=== PATIENT | male | born 1940 | race African-American/Black ===

== ENCOUNTER 2017-06-13 12:30 | Inpatient (IN) | payer MEDICARE, MEDICAID ==
[~2017-06-13] VITALS: Ht 165.1 cm; Wt 99.3 kg
[2017-06-13 12:24] VITALS: BP 126/72
[~2017-06-13 12:30] MED LIST: ASPIR 8181 MG ORAL; BENAZEPRIL HCL40 MG ORAL; CARDIZEM90 MG ORAL; HUMULIN 70100 UNIT/2 SUBQ; LANOXIN250 MCG ORAL; MELOXICAM7.5 MG PO; METFORMIN HCL850 M1 ORAL; NIFEDIPINE ER90 M3 ORAL; NIFEDIPINE20 MG ORAL; PROMETHAZINE-D118 ML ORAL; PROTONIX40 MG ORAL; SIMVASTATIN40 MG ORAL
[2017-06-13 13:12] LABS: MEAN CORPUSCULAR HEMOGLOBIN 17.5 PG (27.0-31.0); MEAN CORPUSCULAR HGB CONC 28.1 G/DL (32.0-36.0); MEAN CORPUSCULAR VOLUME 62 FL (80-99); MEAN PLATELET VOLUME 6.1 FL (6.5-10.1); PLATELET COUNT 236 K/UL (150-450); RED BLOOD COUNT 4.32 M/UL (4.70-6.10); RED CELL DISTRIBUTION WIDTH 16.9 % (11.6-14.8); WHITE BLOOD COUNT 4.2 K/UL (4.8-10.8)
--- NOTE | 2017-06-13 13:16 | Emergency Room Report ---
History of Present Illness General Chief Complaint: Flu Like Symptoms Source: EMS Present Illness HPI 76-year-old male with history of diabetes and hypertension, presenting with 4-5 days of generalized weakness and lightheadedness. Patient states that he gets lightheaded especially when he walks, but can also experienced symptoms was just lying down. Patient denies any room spinning. Patient denies any headache neck pain chest pain shortness of breath nausea vomiting or diarrhea. Patient denies any coffee-ground emesis or black or bloody stools. Allergies: Coded Allergies: No Known Allergies (Unverified , 06/20/14) Patient History Past Medical History: see triage record Past Surgical History: none Pertinent Family History: none Reviewed Nursing Documentation: PMH: Agreed, PSxH: Agreed Nursing Documentation-PMH Hx Cardiac Problems: Yes Hx Hypertension: Yes Hx Diabetes: Yes Hx Cancer: No Hx Gastrointestinal Problems: Yes Hx Neurological Problems: Yes Hx Cerebrovascular Accident: Yes Review of Systems All Other Systems: negative except mentioned in HPI Physical Exam Vital Signs Date Time Temp Pulse Resp B/P (MAP) Pulse Ox O2 Delivery O2 Flow Rate FiO2 06/13/17 12:15 98.1 116 18 126/72 95 Room Air Sp02 EP Interpretation: reviewed, normal General Appearance: normal inspection, well appearing, no apparent distress, alert, GCS 15, non-toxic Head: normocephalic, atraumatic Eyes: bilateral eye normal inspection, bilateral eye PERRL, bilateral eye EOMI ENT: normal ENT inspection, normal pharynx, normal voice, moist mucus membranes Neck: normal inspection, full range of motion, supple Respiratory: normal inspection, lungs clear, normal breath sounds, no respiratory distress, no retraction, no wheezing, speaking full sentences, chest symmetrical Cardiovascular #1: normal inspection, no edema, normal capillary refill, tachycardia Cardiovascular #2: 2+ radial (R), 2+ radial (L) Gastrointestinal: normal inspection, non tender, soft, non-distended, no guarding Genitourinary: no CVA tenderness Musculoskeletal: normal inspection, back normal, normal range of motion, non- tender Neurologic: normal inspection, alert, oriented x3, responsive, motor strength/ tone normal, sensory intact, normal gait, speech normal Psychiatric: normal inspection, judgement/insight normal, memory normal Skin: normal inspection, normal color, no rash, warm/dry, well hydrated, normal turgor Medical Decision Making Diagnostic Impression: Primary Impression: Generalized weakness Additional Impression: Anemia ER Course 76 yo male with generalized weakness and lightheadedness DDX: Dehydration, electrolyte imbalance, infectious, UTI, pneumonia, anemia, viral URI, ACS Plan: Obtain labs, ua, EKG, CXR ER course: Patient has been monitored during ED stay, HD stable Anemia found on CBC, unknown baseline. Disposition: Patient is to be admitted to [facility] D/W hospitalist [ ] Please note that this Emergency Department Report was dictated using [email or web address] software, occasionally this can lead to erroneous entry secondary to interpretation by the dictation equipment. Laboratory Tests Test 06/13/17 12:49 White Blood Count 4.2 K/UL (4.8-10.8) L Red Blood Count 4.32 M/UL (4.70-6.10) L Hemoglobin 7.5 G/DL (14.2-18.0) L Hematocrit 26.8 % (42.0-52.0) L Mean Corpuscular Volume 62 FL (80-99) L Mean Corpuscular Hemoglobin 17.5 PG (27.0-31.0) L Mean Corpuscular Hemoglobin Concent 28.1 G/DL (32.0-36.0) L Red Cell Distribution Width 16.9 % (11.6-14.8) H Platelet Count 236 K/UL (150-450) Mean Platelet Volume 6.1 FL (6.5-10.1) L Neutrophils (%) (Auto) % (45.0-75.0) Lymphocytes (%) (Auto) % (20.0-45.0) Monocytes (%) (Auto) % (1.0-10.0) Eosinophils (%) (Auto) % (0.0-3.0) Basophils (%) (Auto) % (0.0-2.0) Differential Total Cells Counted 100 Neutrophils % (Manual) 70 % (45-75) Lymphocytes % (Manual) 16 % (20-45) L Monocytes % (Manual) 12 % (1-10) H Eosinophils % (Manual) 2 % (0-3) Basophils % (Manual) 0 % (0-2) Band Neutrophils 0 % (0-8) Platelet Estimate Adequate Platelet Morphology Giant Platelets Occasional Hypochromasia 2+ Anisocytosis 1+ Microcytosis 2+ Tear Drop Cells Rare Ovalocytes Rare Sodium Level 133 mEQ/L (135-145) L Potassium Level 3.5 mEQ/L (3.4-4.9) Chloride Level 93 mEQ/L (98-107) L Carbon Dioxide Level 25 mEQ/L (20-30) Anion Gap 15 (5-15) Blood Urea Nitrogen 14 mg/dL (7-23) Creatinine 1.3 mg/dL (0.7-1.2) H Estimate Glomerular Filtration Rate mL/min (>60) Glucose Level 171 mg/dL (74-106) H Calcium Level 9.1 mg/dL (8.6-10.2) Total Bilirubin 0.7 mg/dL (0.0-1.2) Aspartate Amino Transferase (AST) 38 U/L (5-40) Alanine Aminotransferase (ALT) 28 U/L (3-41) Alkaline Phosphatase 45 U/L (40-129) Troponin I < 0.30 ng/mL (<=0.30) Total Protein 7.3 g/dL (6.6-8.7) Albumin 3.7 g/dL (3.5-5.2) Globulin 3.6 g/dL Albumin/Globulin Ratio 1.0 (1.0-2.7) EKG Diagnostic Results Rate: normal Rhythm: NSR ST Segments: no acute changes ASA given to the pt in ED: No Rhythm Strip Diag. Results EP Interpretation: yes Rate: 80 Rhythm: NSR, no PVC's, no ectopy Chest X-Ray Diagnostic Results Chest X-Ray Diagnostic Results : Chest X-Ray Ordered: Yes # of Views/Limited/Complete: 1 View Indication: Other Interpretation: no consolidation, no effusion, no pneumothorax, no acute cardiopulmonary disease Impression: Other Electronically Signed by: Electronically signed by Diane Olmos MD Last Vital Signs Date Time Temp Pulse Resp B/P (MAP) Pulse Ox O2 Delivery O2 Flow Rate FiO2 06/13/17 12:24 98.1 18 126/72 95 Room Air 06/13/17 12:24 116 Disposition: ADMITTED INPATIENT Condition: Serious Referrals: NOT CHOSEN IPA/,REFERRING (PCP) Diane Olmos M.D. Jun 13, 2017 13:16
[2017-06-13 13:26] LABS: TROPONIN I < 0.30 ng/mL (<=0.30)
[2017-06-13 13:30] LABS: ALANINE AMINOTRANSFERASE 28 U/L (3-41); ANION GAP 15 (5-15); ASPARTATE AMINO TRANSFERASE 38 U/L (5-40); CALCIUM 9.1 mg/dL (8.6-10.2); CARBON DIOXIDE 25 mEQ/L (20-30); CHLORIDE 93 mEQ/L (98-107); CREATININE 1.3 mg/dL (0.7-1.2); HEMOLYSIS 44; POTASSIUM 3.5 mEQ/L (3.4-4.9); SODIUM 133 mEQ/L (135-145); TOTAL PROTEIN 7.3 g/dL (6.6-8.7)
[2017-06-13 13:40] LABS: ANISOCYTOSIS 1+; BAND NEUTROPHILS % (MANUAL) 0 % (0-8); BASOPHILS % (MANUAL) 0 % (0-2); EOSINOPHILS % (MANUAL) 2 % (0-3); HYPOCHROMASIA 2+; LYMPHOCYTES % (MANUAL) 16 % (20-45); MICROCYTES 2+; NEUTROPHILS % (MANUAL) 70 % (45-75); PLATELET ESTIMATE ADEQUATE; TOTAL CELLS COUNTED 100
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
[2017-06-13 13:43] LABS: OVALOCYTES RARE
[2017-06-13 13:44] LABS: TEAR DROP CELLS RARE
[2017-06-13] MEDS ORDERED: DOXAZOSIN MESYLA2 MG ORAL (15:01)
[2017-06-13 15:06] VITALS: BP 124/72
[2017-06-13] MEDS ORDERED: LOSARTAN POTAS100 MG ORAL (15:06)
[2017-06-13] MEDS ORDERED: NORVASC10 MG ORAL (15:06)
[2017-06-13] MEDS ORDERED: HYDROCHLOROTHIA25 MG ORAL (15:06)
[2017-06-13] MEDS ORDERED: FUROSEMIDE40 MG/5 ML ORAL (15:06)
[2017-06-13] MEDS ORDERED: LORazepam Inj 2mg/ml 1ml IV PRN (15:30)
[2017-06-13] MEDS ORDERED: Zolpidem 5mg tab ORAL PRN (15:30)
[2017-06-13] MEDS ORDERED: Morphine Sulfate 2mg/ml Inj IVP PRN (15:30)
[2017-06-13] MEDS ORDERED: Mylanta II UD 30ml ORAL PRN (15:30)
[2017-06-13] MEDS ORDERED: Miralax 17gm pkt ORAL PRN (15:30)
[2017-06-13 16:32] VITALS: BP 147/65
[2017-06-13 16:34] LABS: APPEARANCE,URINE CLEAR; KETONES,URINE NEGATIVE (NEGATIVE); LEUKOCYTE ESTERASE ,URINE 2+ (NEGATIVE); NITRITE,URINE NEGATIVE (NEGATIVE); PH,URINE 5 (4.5-8.0); PROTEIN,URINE NEGATIVE (NEGATIVE); UROBILINOGEN,URINE NORMAL MG/DL (0.0-1.0)
[2017-06-13 16:47] LABS: RBC,URINE 0-2 /HPF (0 - 0)
[2017-06-13 16:48] LABS: BACTERIA,URINE OCCASIONAL /HPF; SQUAMOUS EPITHELIAL CELL,UR FEW /LPF (NONE/OCC)
[2017-06-13 18:02] LABS: URIC ACID 6.4 mg/dL (3.0-7.5)
--- NOTE | 2017-06-13 20:04 | Infectious Diseases Prog Note ---
Assessment/Plan Problems: (1) UTI (urinary tract infection) Assessment & Plan: will send urine for culture and start ceftriaxon empirically (2) Generalized weakness Assessment & Plan: could be due to UTI , rule out other etiologies, needs screening for hypothyroidism, (3) Hypertension Assessment & Plan: continue meds, monitor blood pressure (4) Lightheadedness Assessment & Plan: rule out CVA, recommend neurology eval and further work up Subjective Allergies: Coded Allergies: No Known Allergies (Unverified , 06/20/14) Objective Vital Signs Last 24 Hour Vital Signs Date Time Temp Pulse Resp B/P (MAP) Pulse Ox O2 Delivery O2 Flow Rate FiO2 06/13/17 16:32 97.0 99 20 147/65 92 Room Air 06/13/17 15:20 98.1 88 18 124/72 96 Room Air 06/13/17 15:06 98.1 88 18 124/72 96 Room Air 06/13/17 12:24 98.1 18 126/72 95 Room Air 06/13/17 12:24 116 18 Room Air 06/13/17 12:15 98.1 116 18 126/72 95 Room Air Height (Feet): 5 Height (Inches): 7.00 Weight (Pounds): 180 Laboratory Tests Test 06/13/17 12:49 06/13/17 15:10 06/13/17 16:55 White Blood Count 4.2 K/UL (4.8-10.8) L Red Blood Count 4.32 M/UL (4.70-6.10) L Hemoglobin 7.5 G/DL (14.2-18.0) L Hematocrit 26.8 % (42.0-52.0) L Mean Corpuscular Volume 62 FL (80-99) L Mean Corpuscular Hemoglobin 17.5 PG (27.0-31.0) L Mean Corpuscular Hemoglobin Concent 28.1 G/DL (32.0-36.0) L Red Cell Distribution Width 16.9 % (11.6-14.8) H Platelet Count 236 K/UL (150-450) Mean Platelet Volume 6.1 FL (6.5-10.1) L Neutrophils (%) (Auto) % (45.0-75.0) Lymphocytes (%) (Auto) % (20.0-45.0) Monocytes (%) (Auto) % (1.0-10.0) Eosinophils (%) (Auto) % (0.0-3.0) Basophils (%) (Auto) % (0.0-2.0) Differential Total Cells Counted 100 Neutrophils % (Manual) 70 % (45-75) Lymphocytes % (Manual) 16 % (20-45) L Monocytes % (Manual) 12 % (1-10) H Eosinophils % (Manual) 2 % (0-3) Basophils % (Manual) 0 % (0-2) Band Neutrophils 0 % (0-8) Platelet Estimate Adequate Platelet Morphology Giant Platelets Occasional Hypochromasia 2+ Anisocytosis 1+ Microcytosis 2+ Tear Drop Cells Rare Ovalocytes Rare Erythrocyte Sedimentation Rate 21 MM/HR (0-20) H Sodium Level 133 mEQ/L (135-145) L Potassium Level 3.5 mEQ/L (3.4-4.9) Chloride Level 93 mEQ/L (98-107) L Carbon Dioxide Level 25 mEQ/L (20-30) Anion Gap 15 (5-15) Blood Urea Nitrogen 14 mg/dL (7-23) Creatinine 1.3 mg/dL (0.7-1.2) H Estimat Glomerular Filtration Rate mL/min (>60) Glucose Level 171 mg/dL (74-106) H Calcium Level 9.1 mg/dL (8.6-10.2) Total Bilirubin 0.7 mg/dL (0.0-1.2) Aspartate Amino Transf (AST/SGOT) 38 U/L (5-40) Alanine Aminotransferase (ALT/SGPT) 28 U/L (3-41) Alkaline Phosphatase 45 U/L (40-129) Troponin I < 0.30 ng/mL (<=0.30) Total Protein 7.3 g/dL (6.6-8.7) Albumin 3.7 g/dL (3.5-5.2) Globulin 3.6 g/dL Albumin/Globulin Ratio 1.0 (1.0-2.7) Urine Color Yellow Urine Appearance Clear Urine pH 5 (4.5-8.0) Urine Specific [place] 1.010 (1.005-1.035) Urine Protein Negative (NEGATIVE) Urine Glucose (UA) Negative (NEGATIVE) Urine Ketones Negative (NEGATIVE) Urine Occult Blood Negative (NEGATIVE) Urine Nitrite Negative (NEGATIVE) Urine Bilirubin Negative (NEGATIVE) Urine Urobilinogen Normal MG/DL (0.0-1.0) Urine Leukocyte Esterase 2+ (NEGATIVE) H Urine RBC 0-2 /HPF (0 - 0) H Urine WBC 5-10 /HPF (0 - 0) H Urine Squamous Epithelial Cells Few /LPF (NONE/OCC) Urine Bacteria Occasional /HPF (NONE) Urine Eosinophils None seen Urine Random Sodium 40 mmol/L Urine Potassium Timed 28 mmol/L Prothrombin Time 10.0 SEC (9.30-11.50) Prothromb Time International Ratio 1.0 (0.9-1.1) Activated Partial Thromboplast Time 19 SEC (23-33) L Uric Acid 6.4 mg/dL (3.0-7.5) Lactate Dehydrogenase 153 U/L (135-230) Total Creatine Kinase 134 U/L (38-174) Carcinoembryonic Antigen 5.0 ng/mL H Current Medications Medications (Trade) Dose Ordered Sig/Eda Route PRN Reason Start Time Stop Time Status Last Admin Dose Admin Acetaminophen (Tylenol) 650 mg Q4H PRN ORAL fever 06/13/17 15:30 07/13/17 15:29 Al Hydroxide/Mg Hydroxide (Mylanta II) 30 ml Q6H PRN ORAL dyspepsia 06/13/17 15:30 07/13/17 15:29 Dextrose (Dextrose 50%) STAT PRN IV Hypoglycemia 06/13/17 15:30 07/13/17 15:29 Lorazepam (Ativan 2mg/ml 1ml) 0.5 mg Q4H PRN IV For Anxiety 06/13/17 15:30 06/20/17 15:29 Morphine Sulfate (Morphine Sulfate) 1 mg EVERY 4 HOURS PRN IVP For Pain 06/13/17 15:30 06/20/17 15:29 Ondansetron HCl (Zofran) 4 mg Q6H PRN IVP Nausea & Vomiting 06/13/17 15:30 07/13/17 15:29 Polyethylene Glycol (Miralax) 17 gm HSPRN PRN ORAL Constipation 06/13/17 15:30 07/13/17 15:29 Zolpidem Tartrate (Ambien) 5 mg HSPRN PRN ORAL Insomnia 06/13/17 15:30 06/20/17 15:29 Boris Mata M.D. Jun 13, 2017 20:04
[2017-06-13] MEDS: cefTRIAXone 1 GM in D5W 55 ML IVPB SCH (22:21)
[2017-06-13] MEDS: NovoLOG Insulin Flexpen SUBQ SCH (22:23)
--- NOTE | 2017-06-13 23:45 | History and Physical Report ---
DATE OF ADMISSION: 06/13/2017 TIME SEEN: 2 p.m. CONSULTANTS: 1. Darin Watts M.D. 2. Balta Luna M.D. 3. Dr. Fountain. 4. Stephen Munguia M.D. CHIEF COMPLAINT: Weakness, flu-like symptoms, and severe anemia. BRIEF HISTORY: This is a 76-year-old male, who lives at home, presents with two days of flu-like symptoms, and slightly weak. He does have history of recurrent anemia. He came in to [place] and diagnosed with a anemia 7.5, being admitted to medical floor for further treatment. Currently, calm, in the ER [place], no complaints. PAST MEDICAL HISTORY: Diabetes, hypertension, and anemia. PAST SURGICAL HISTORY: None. MEDICATIONS: We will obtain list shortly. ALLERGY: Denied. SOCIAL HISTORY: No smoking, no alcohol, and no intravenous drug abuse. FAMILY HISTORY: Noncontributory. REVIEW OF SYSTEMS: No chest pain. No shortness of breath. Slight nausea. No vomiting or diarrhea. PHYSICAL EXAMINATION: GENERAL: Calm in bed, oriented x3, and in no acute distress. VITAL SIGNS: Temperature is 98, pulse 116, respirations 18, and blood pressure 126/72. CARDIOVASCULAR: No murmur. LUNGS: Distant and clear. ABDOMEN: Positive bowel sounds. Nontender and nondistended. EXTREMITIES: No cyanosis, clubbing, or edema. NEUROLOGICAL: The patient is moving all extremities, but slightly weak. LABORATORY DATA: Labs, at this time, show white count 4.2, hemoglobin and hematocrit are 7.5 and 26.8, and platelets 236,000. BMP shows sodium 133, chloride 93, creatinine 1.3, and glucose 171. ASSESSMENT: 1. Weakness. 2. Anemia. 3. Flu-like symptoms. 4. Diabetes. 5. Hypertension. 6. Renal insufficiency. PLAN: 1. Continue premedications. 2. Transfuse. 3. OT, PT, and dietary evaluation. 4. CBC and BMP in the morning. 5. Dr. Watts, Dr. Luna, Dr. Fountain, Dr. Munguia, and Dr. Bradford to consult. We will continue to follow this patient medically. Bry Santiago D.O. DR: MILAGRO JOB#: [id number] CC:
[2017-06-14 04:50] VITALS: BP 139/79
[2017-06-14] MEDS: NovoLOG Insulin Flexpen SUBQ SCH ×4 (06:21→21:29)
--- NOTE | 2017-06-14 07:28 | Consultation ---
History of Present Illness General Date patient seen: Jun 14, 2017 Time patient seen: 07:15 Chief Complaint: Flu Like Symptoms Referring physician: dr Santiago Reason for Consultation: inpatient management Present Illness HPI 76y/old male with PMH of diabetes, hypertension, presented with generalized weakness and lightheadedness for 4-5 days Reported being lightheaded with walking, but symptoms were still present when he was lying down. No sensation of room spinning. Reported fall 3 days ago and pain in left elbow since that time. Denied LOS, blackout, Denied headache, neck pain chest pain , shortness of breath, nausea vomiting , diarrhea. W/up in ED revealed tachy-116, BP 126/72 HH-7.5/26.8 no leukocytosis MCV -62 Na-133 K-3.5 Cl-93 BUN/creat -14/1.3 troponin negative CXR negative ECG with NSR, no acute changes patient was admitted for blood transfusion and further workup Allergies: Coded Allergies: No Known Allergies (Unverified , 06/20/14) Medication History Scheduled Amlodipine Besylate (Norvasc), 10 MG ORAL DAILY, (Reported) Aspirin* (Aspir 81*), 81 MG ORAL DAILY, (Reported) Benazepril Hcl* (Benazepril Hcl*), 40 MG ORAL DAILY, (Reported) Digoxin* (Lanoxin*), 0.25 MG ORAL DAILY Diltiazem HCl (Diltiazem HCl), 90 MG ORAL EVERY 6 HOURS Doxazosin Mesylate (Doxazosin Mesylate), 4 MG ORAL DAILY, (Reported) Furosemide (Furosemide), 20 MG ORAL DAILY, (Reported) Hum Insulin Nph/Reg Insulin Hm (Humulin 70-30 Vial), 15 SUBQ BID, (Reported) Hydrochlorothiazide* (Hydrochlorothiazide*), 25 MG ORAL DAILY, (Reported) Losartan Potassium (Losartan Potassium), 100 MG ORAL DAILY, (Reported) Meloxicam* (Meloxicam*), 7.5 MG PO BID, (Reported) Metformin Hcl* (Metformin Hcl*), 850 MG ORAL BID, (Reported) Pantoprazole* (Protonix*), 40 MG ORAL DAILY, (Reported) Simvastatin (Zocor), 40 MG ORAL BEDTIME, (Reported) Scheduled PRN D-Methorphan Hb/Prometh Hcl* (Promethazine-Dm Syrup*), 5 ML ORAL Q6H PRN for For Cough, (Reported) Patient History Healthcare decision maker Resuscitation status Advanced Directive on File No Review of Systems Constitutional: Reports: weakness Eye: Reports: no symptoms ENT: Reports: no symptoms Respiratory: Reports: no symptoms Cardiovascular: Reports: no symptoms Gastrointestinal: Reports: no symptoms Genitourinary: Reports: no symptoms Musculoskeletal: Reports: other - left elbow pain since fall Skin: Reports: no symptoms Psychiatric: Reports: no symptoms Neurological: Reports: see HPI, dizziness Endocrine: Reports: no symptoms Hematologic/Lymphatic: Reports: see HPI, anemia Physical Exam General Appearance: no apparent distress, alert - A/A/O x 4 male in NAD Lines, tubes and drains: peripheral HEENT: normocephalic, atraumatic, anicteric, mucous membranes moist Neck: non-tender, supple Respiratory/Chest: chest wall non-tender, lungs clear, no respiratory distress , no accessory muscle use Cardiovascular/Chest: normal peripheral pulses, normal rate, regular rhythm Abdomen: normal bowel sounds, non tender, soft Extremities: normal range of motion, non-tender, no calf tenderness, other - L elbow with mild edema, no TTP Skin Exam: warm/dry Neurologic: no motor/sensory deficits, alert, oriented x 3, responsive Musculoskeletal: normal muscle bulk Last 24 Hour Vital Signs Date Time Temp Pulse Resp B/P (MAP) Pulse Ox O2 Delivery O2 Flow Rate FiO2 06/14/17 04:50 96.8 98 20 139/79 98 Room Air 06/13/17 16:32 97.0 99 20 147/65 92 Room Air 06/13/17 15:20 98.1 88 18 124/72 96 Room Air 06/13/17 15:06 98.1 88 18 124/72 96 Room Air 06/13/17 12:24 98.1 18 126/72 95 Room Air 06/13/17 12:24 116 18 Room Air 06/13/17 12:15 98.1 116 18 126/72 95 Room Air Laboratory Tests Test 06/13/17 12:49 06/13/17 15:10 06/13/17 16:55 06/14/17 06:50 White Blood Count 4.2 K/UL (4.8-10.8) L Pending Red Blood Count 4.32 M/UL (4.70-6.10) L Pending Hemoglobin 7.5 G/DL (14.2-18.0) L Pending Hematocrit 26.8 % (42.0-52.0) L Pending Mean Corpuscular Volume 62 FL (80-99) L Pending Mean Corpuscular Hemoglobin 17.5 PG (27.0-31.0) L Pending Mean Corpuscular Hemoglobin Concent 28.1 G/DL (32.0-36.0) L Pending Red Cell Distribution Width 16.9 % (11.6-14.8) H Pending Platelet Count 236 K/UL (150-450) Pending Mean Platelet Volume 6.1 FL (6.5-10.1) L Pending Neutrophils (%) (Auto) % (45.0-75.0) Pending Lymphocytes (%) (Auto) % (20.0-45.0) Pending Monocytes (%) (Auto) % (1.0-10.0) Pending Eosinophils (%) (Auto) % (0.0-3.0) Pending Basophils (%) (Auto) % (0.0-2.0) Pending Differential Total Cells Counted 100 Neutrophils % (Manual) 70 % (45-75) Lymphocytes % (Manual) 16 % (20-45) L Monocytes % (Manual) 12 % (1-10) H Eosinophils % (Manual) 2 % (0-3) Basophils % (Manual) 0 % (0-2) Band Neutrophils 0 % (0-8) Platelet Estimate Adequate Platelet Morphology Giant Platelets Occasional Hypochromasia 2+ Anisocytosis 1+ Microcytosis 2+ Tear Drop Cells Rare Ovalocytes Rare Erythrocyte Sedimentation Rate 21 MM/HR (0-20) H Sodium Level 133 mEQ/L (135-145) L Pending Potassium Level 3.5 mEQ/L (3.4-4.9) Pending Chloride Level 93 mEQ/L (98-107) L Pending Carbon Dioxide Level 25 mEQ/L (20-30) Pending Anion Gap 15 (5-15) Blood Urea Nitrogen 14 mg/dL (7-23) Pending Creatinine 1.3 mg/dL (0.7-1.2) H Pending Estimat Glomerular Filtration Rate mL/min (>60) Pending Glucose Level 171 mg/dL (74-106) H Pending Calcium Level 9.1 mg/dL (8.6-10.2) Pending Total Bilirubin 0.7 mg/dL (0.0-1.2) Pending Aspartate Amino Transf (AST/SGOT) 38 U/L (5-40) Pending Alanine Aminotransferase (ALT/SGPT) 28 U/L (3-41) Pending Alkaline Phosphatase 45 U/L (40-129) Pending Troponin I < 0.30 ng/mL (<=0.30) Total Protein 7.3 g/dL (6.6-8.7) Pending Albumin 3.7 g/dL (3.5-5.2) Pending Globulin 3.6 g/dL Pending Albumin/Globulin Ratio 1.0 (1.0-2.7) Urine Color Yellow Urine Appearance Clear Urine pH 5 (4.5-8.0) Urine Specific [place] 1.010 (1.005-1.035) Urine Protein Negative (NEGATIVE) Urine Glucose (UA) Negative (NEGATIVE) Urine Ketones Negative (NEGATIVE) Urine Occult Blood Negative (NEGATIVE) Urine Nitrite Negative (NEGATIVE) Urine Bilirubin Negative (NEGATIVE) Urine Urobilinogen Normal MG/DL (0.0-1.0) Urine Leukocyte Esterase 2+ (NEGATIVE) H Urine RBC 0-2 /HPF (0 - 0) H Urine WBC 5-10 /HPF (0 - 0) H Urine Squamous Epithelial Cells Few /LPF (NONE/OCC) Urine Bacteria Occasional /HPF (NONE) Urine Eosinophils None seen Urine Random Sodium 40 mmol/L Urine Potassium Timed 28 mmol/L Prothrombin Time 10.0 SEC (9.30-11.50) Pending Prothromb Time International Ratio 1.0 (0.9-1.1) Pending Activated Partial Thromboplast Time 19 SEC (23-33) L Pending Uric Acid 6.4 mg/dL (3.0-7.5) Lactate Dehydrogenase 153 U/L (135-230) Total Creatine Kinase 134 U/L (38-174) Carcinoembryonic Antigen 5.0 ng/mL H Pending Reticulocyte Count Pending Hemoglobin A1c Pending Iron Level Pending Unsaturated Iron Binding Pending Ferritin Pending Vitamin B12 Level Pending Folate Pending Thyroid Stimulating Hormone (TSH) Pending Free Thyroxine Pending Height (Feet): 5 Height (Inches): 7.00 Weight (Pounds): 180 Medications Current Medications Medications (Trade) Dose Ordered Sig/Eda Route PRN Reason Start Time Stop Time Status Last Admin Dose Admin Acetaminophen (Tylenol) 650 mg Q4H PRN ORAL fever 06/13/17 15:30 07/13/17 15:29 Al Hydroxide/Mg Hydroxide (Mylanta II) 30 ml Q6H PRN ORAL dyspepsia 06/13/17 15:30 07/13/17 15:29 Ceftriaxone Sodium 1 gm/ Dextrose 55 ml @ 110 mls/hr Q24H IVPB 06/13/17 21:00 06/20/17 20:59 06/13/17 22:21 Dextrose (Dextrose 50%) STAT PRN IV Hypoglycemia 06/13/17 15:30 07/13/17 15:29 Dextrose (Dextrose 50%) STAT PRN IV Hypoglycemia 06/13/17 20:15 07/13/17 20:14 Insulin Aspart (NovoLOG) BEFORE MEALS AND HS SUBQ 06/13/17 21:00 07/13/17 20:59 06/14/17 06:21 Lorazepam (Ativan 2mg/ml 1ml) 0.5 mg Q4H PRN IV For Anxiety 06/13/17 15:30 06/20/17 15:29 Morphine Sulfate (Morphine Sulfate) 1 mg EVERY 4 HOURS PRN IVP For Pain 06/13/17 15:30 06/20/17 15:29 Ondansetron HCl (Zofran) 4 mg Q6H PRN IVP Nausea & Vomiting 06/13/17 15:30 07/13/17 15:29 Polyethylene Glycol (Miralax) 17 gm HSPRN PRN ORAL Constipation 06/13/17 15:30 07/13/17 15:29 Zolpidem Tartrate (Ambien) 5 mg HSPRN PRN ORAL Insomnia 06/13/17 15:30 06/20/17 15:29 Assessment/Plan Assessment/Plan ASSESSMENT acute microcytic anemia requiring blood transfusion iron deficiency anemia elevated CEA r/o GI bleeding , r/o malignancy vertigo ( due to anemia) s/p mechanical fall left elbow pain, r/o fracture HTN DM pyuria, possible UTI PLAN OF CARE MS floor s/p blood transfusion anemia workup c/w anemia of iron deficiency check stool OB, elevated CEA Venous Duplex BLE GI eval- per PMD fall precautions X ray L elbow to r/o fracture pain management PT/OT BS management with SS of insulin BP management , currently not on any anti HTN, monitor and optimize treatment as needed Bowel regimen UA + pyuria, no bacteria, cx pending, ID follows, started on empiric abx, doubt acute UTI case discussed and evaluated by supervising physician Wilfredo Nicole),Gloria REGAN Jun 14, 2017 07:28
[2017-06-14 07:43] LABS: INR 1.1 (0.9-1.1)
[2017-06-14 07:54] LABS: BASOPHILS % (AUTO) 1.6 % (0.0-2.0); EOSINOPHILS % (AUTO) 8.1 % (0.0-3.0); LYMPHOCYTES % (AUTO) 16.5 % (20.0-45.0); MEAN CORPUSCULAR HEMOGLOBIN 19.3 PG (27.0-31.0); MEAN CORPUSCULAR HGB CONC 29.9 G/DL (32.0-36.0); MEAN CORPUSCULAR VOLUME 65 FL (80-99); MEAN PLATELET VOLUME 8.7 FL (6.5-10.1); MONOCYTES % (AUTO) 15.1 % (1.0-10.0); NEUTROPHILS % (AUTO) 58.6 % (45.0-75.0); PLATELET COUNT 252 K/UL (150-450); RED BLOOD COUNT 4.67 M/UL (4.70-6.10); RED CELL DISTRIBUTION WIDTH 19.4 % (11.6-14.8); WHITE BLOOD COUNT 5.3 K/UL (4.8-10.8)
[2017-06-14 08:00] VITALS: BP 142/84
[2017-06-14 08:02] LABS: ALANINE AMINOTRANSFERASE 28 U/L (3-41); ANION GAP 9 (5-15); ASPARTATE AMINO TRANSFERASE 33 U/L (5-40); CALCIUM 9.8 mg/dL (8.6-10.2); CARBON DIOXIDE 31 mEQ/L (20-30); CHLORIDE 97 mEQ/L (98-107); CREATININE 1.2 mg/dL (0.7-1.2); POTASSIUM 3.7 mEQ/L (3.4-4.9); SODIUM 137 mEQ/L (135-145); TOTAL PROTEIN 7.6 g/dL (6.6-8.7)
[2017-06-14 08:03] LABS: FERRITIN 8 ng/mL (10-230)
[2017-06-14 08:23] LABS: HEMOLYSIS 0; IRON 55 ug/dL (59-158); TOTAL IRON BINDING CAPACITY 487 ug/dL (250-400)
[2017-06-14 08:35] LABS: BILIRUBIN,DIRECT 0.4 mg/dL (0.1-0.3)
--- NOTE | 2017-06-14 08:44 | Diagnostic Imaging Report ---
Indication: Elevated renal function tests Technique: Renal ultrasound Findings: Kidneys: The kidneys are normal in size and echogenicity. There is no hydronephrosis. No perinephric fluid is identified. A hypoechoic mass is noted in the right kidney with artifactual internal echoes measuring 3.7 cm. It has through transmission. A similar mass is noted in the lower pole the left kidney measuring 4.8 cm. A smaller one is noted in the upper pole measuring 1.7 cm. IVC: The visualized portion of the inferior vena cava appears normal. Bladder: The bladder is collapsed. Impression: Bilateral renal cysts.
--- NOTE | 2017-06-14 09:05 | General Progress Note ---
Assessment/Plan Problem List: (1) HTN (hypertension) ICD Codes: I10 - Essential (primary) hypertension SNOMED: 86106454 (2) Diabetes ICD Codes: E11.9 - Type 2 diabetes mellitus without complications SNOMED: 74151043 (3) Renal insufficiency ICD Codes: N28.9 - Disorder of kidney and ureter, unspecified SNOMED: 514224403 (4) Generalized weakness ICD Codes: R53.1 - Weakness SNOMED: 89411093 (5) Anemia ICD Codes: D64.9 - Anemia, unspecified SNOMED: 576301826 (6) UTI (urinary tract infection) ICD Codes: N39.0 - Urinary tract infection, site not specified SNOMED: 63752931 (7) Hypertension ICD Codes: I10 - Essential (primary) hypertension SNOMED: 53255824 Status: stable, progressing, tolerating diet Assessment/Plan ot pt dietm abx transfuse prn ivf cbc bmp am Subjective Constitutional: Reports: weakness Allergies: Coded Allergies: No Known Allergies (Unverified , 06/20/14) All Systems: reviewed and negative except above Subjective calm in bed Objective Last 24 Hour Vital Signs Date Time Temp Pulse Resp B/P (MAP) Pulse Ox O2 Delivery O2 Flow Rate FiO2 06/14/17 08:00 97.5 104 20 142/84 90 Room Air 06/14/17 04:50 96.8 98 20 139/79 98 Room Air 06/13/17 16:32 97.0 99 20 147/65 92 Room Air 06/13/17 15:20 98.1 88 18 124/72 96 Room Air 06/13/17 15:06 98.1 88 18 124/72 96 Room Air 06/13/17 12:24 98.1 18 126/72 95 Room Air 06/13/17 12:24 116 18 Room Air 06/13/17 12:15 98.1 116 18 126/72 95 Room Air Laboratory Tests 06/13/17 12:49: White Blood Count 4.2L, Red Blood Count 4.32L, Hemoglobin 7.5L, Hematocrit 26.8L , Mean Corpuscular Volume 62L, Mean Corpuscular Hemoglobin 17.5L, Mean Corpuscular Hemoglobin Concent 28.1L, Red Cell Distribution Width 16.9H, Platelet Count 236, Mean Platelet Volume 6.1L, Neutrophils (%) (Auto) , Lymphocytes (%) (Auto) , Monocytes (%) (Auto) , Eosinophils (%) (Auto) , Basophils (%) (Auto) , Differential Total Cells Counted 100, Neutrophils % ( Manual) 70, Lymphocytes % (Manual) 16L, Monocytes % (Manual) 12H, Eosinophils % (Manual) 2, Basophils % (Manual) 0, Band Neutrophils 0, Platelet Estimate Adequate, Platelet Morphology , Giant Platelets Occasional, Hypochromasia 2+, Anisocytosis 1+, Microcytosis 2+, Tear Drop Cells Rare, Ovalocytes Rare, Erythrocyte Sedimentation Rate 21H, Sodium Level 133L, Potassium Level 3.5, Chloride Level 93L, Carbon Dioxide Level 25, Anion Gap 15, Blood Urea Nitrogen 14, Creatinine 1.3H, Estimat Glomerular Filtration Rate , Glucose Level 171H, Calcium Level 9.1, Total Bilirubin 0.7, Aspartate Amino Transf (AST/SGOT) 38, Alanine Aminotransferase (ALT/SGPT) 28, Alkaline Phosphatase 45, Troponin I < 0.30, Total Protein 7.3, Albumin 3.7, Globulin 3.6, Albumin/Globulin Ratio 1.0 06/13/17 15:10: Urine Color Yellow, Urine Appearance Clear, Urine pH 5, Urine Specific Conroy 1.010, Urine Protein Negative, Urine Glucose (UA) Negative, Urine Ketones Negative, Urine Occult Blood Negative, Urine Nitrite Negative, Urine Bilirubin Negative, Urine Urobilinogen Normal, Urine Leukocyte Esterase 2+H, Urine RBC 0- 2H, Urine WBC 5-10H, Urine Squamous Epithelial Cells Few, Urine Bacteria Occasional, Urine Eosinophils None seen, Urine Random Sodium 40, Urine Potassium Timed 28 06/13/17 16:55: Prothrombin Time 10.0, Prothromb Time International Ratio 1.0, Activated Partial Thromboplast Time 19L, Uric Acid 6.4, Lactate Dehydrogenase 153, Total Creatine Kinase 134, Carcinoembryonic Antigen 5.0H 06/14/17 06:50: White Blood Count 5.3, Red Blood Count 4.67L, Hemoglobin 9.0L, Hematocrit 30.2L , Mean Corpuscular Volume 65L, Mean Corpuscular Hemoglobin 19.3L, Mean Corpuscular Hemoglobin Concent 29.9L, Red Cell Distribution Width 19.4H, Platelet Count 252, Mean Platelet Volume 8.7, Neutrophils (%) (Auto) 58.6, Lymphocytes (%) (Auto) 16.5L, Monocytes (%) (Auto) 15.1H, Eosinophils (%) (Auto ) 8.1H, Basophils (%) (Auto) 1.6, Sodium Level 137, Potassium Level 3.7, Chloride Level 97L, Carbon Dioxide Level 31H, Anion Gap 9, Blood Urea Nitrogen 12, Creatinine 1.2, Estimat Glomerular Filtration Rate , Glucose Level 114H, Calcium Level 9.8, Total Bilirubin 1.4H, Aspartate Amino Transf (AST/SGOT) 33, Alanine Aminotransferase (ALT/SGPT) 28, Alkaline Phosphatase 48, Total Protein 7.6, Albumin 3.8, Globulin 3.8, Albumin/Globulin Ratio 1.0, Prothrombin Time 11.0, Prothromb Time International Ratio 1.1, Activated Partial Thromboplast Time 27, Carcinoembryonic Antigen 4.8H, Reticulocyte Count [Pending], Hemoglobin A1c 5.8, Iron Level 55L, Total Iron Binding Capacity 487H, Percent Iron Saturation 11L, Unsaturated Iron Binding 432H, Ferritin 8L, Direct Bilirubin 0.4H, Vitamin B12 Level 226, Folate [Pending], Thyroid Stimulating Hormone (TSH) 1.250, Free Thyroxine 1.32 Height (Feet): 5 Height (Inches): 7.00 Weight (Pounds): 180 General Appearance: lethargic EENT: normal ENT inspection Neck: normal alignment Cardiovascular: normal peripheral pulses, normal rate, regular rhythm Respiratory/Chest: chest wall non-tender, lungs clear, normal breath sounds Abdomen: normal bowel sounds, non tender, soft Extremities: normal inspection Edema: no edema noted Arm (L), no edema noted Arm (R), no edema noted Leg (L), no edema noted Leg (R), no edema noted Pedal (L), no edema noted Pedal (R), no edema noted Generalized Neurologic: responsive, motor weakness Skin: normal pigmentation, warm/dry SOLEDAD MORRIS Jun 14, 2017 09:05
[2017-06-14 10:22] LABS: RETICULOCYTE COUNT 1.5 % (0.0-2.0)
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
[2017-06-14 12:00] VITALS: BP 141/81
[2017-06-14] MEDS ORDERED: Sorbitol Solution UD 30ml ORAL ONE (14:00)
[2017-06-14] MEDS ORDERED: Bisacodyl EC 5mg tab ORAL ONE ×2 (14:00→18:00)
[2017-06-14] MEDS ORDERED: NS 275ml ONE (15:57)
[2017-06-14] MEDS ORDERED: Tubing Blood Filter IV ONE (15:57)
[2017-06-14 16:00] VITALS: BP 141/87
--- NOTE | 2017-06-14 16:55 | Infectious Diseases Prog Note ---
Assessment/Plan Problems: (1) UTI (urinary tract infection) Assessment & Plan: await urine culture and continue ceftriaxon empirically (2) Generalized weakness Assessment & Plan: could be due to UTI , rule out other etiologies, needs screening for hypothyroidism, (3) Hypertension Assessment & Plan: continue meds, monitor blood pressure (4) Lightheadedness Assessment & Plan: rule out CVA, recommend neurology eval and further work up Subjective Constitutional: Reports: no symptoms HEENT: Reports: no symptoms Respiratory: Reports: no symptoms Breasts: Reports: no symptoms Cardiovascular: Reports: no symptoms Gastrointestinal/Abdominal: Reports: no symptoms Genitourinary: Reports: no symptoms Neurologic: Reports: no symptoms Allergies: Coded Allergies: No Known Allergies (Unverified , 06/20/14) Objective Vital Signs Last 24 Hour Vital Signs Date Time Temp Pulse Resp B/P (MAP) Pulse Ox O2 Delivery O2 Flow Rate FiO2 06/14/17 16:00 96.8 98 20 141/87 94 Room Air 06/14/17 12:00 96.9 90 20 141/81 92 Room Air 06/14/17 08:00 97.5 104 20 142/84 90 Room Air 06/14/17 04:50 96.8 98 20 139/79 98 Room Air Height (Feet): 5 Height (Inches): 7.00 Weight (Pounds): 180 General Appearance: WD/WN, no acute distress HEENT: normocephalic, atraumatic, anicteric, mucous membranes moist Respiratory/Chest: chest wall non-tender, lungs clear, normal breath sounds Cardiovascular: normal peripheral pulses, normal rate, regular rhythm Abdomen: normal bowel sounds, soft, non tender, no organomegaly, non distended Genitourinary: normal external genitalia Extremities: no cyanosis, no clubbing Skin: no rash, no lesions Laboratory Tests Test 06/14/17 06:50 White Blood Count 5.3 K/UL (4.8-10.8) Red Blood Count 4.67 M/UL (4.70-6.10) L Hemoglobin 9.0 G/DL (14.2-18.0) L Hematocrit 30.2 % (42.0-52.0) L Mean Corpuscular Volume 65 FL (80-99) L Mean Corpuscular Hemoglobin 19.3 PG (27.0-31.0) L Mean Corpuscular Hemoglobin Concent 29.9 G/DL (32.0-36.0) L Red Cell Distribution Width 19.4 % (11.6-14.8) H Platelet Count 252 K/UL (150-450) Mean Platelet Volume 8.7 FL (6.5-10.1) Neutrophils (%) (Auto) 58.6 % (45.0-75.0) Lymphocytes (%) (Auto) 16.5 % (20.0-45.0) L Monocytes (%) (Auto) 15.1 % (1.0-10.0) H Eosinophils (%) (Auto) 8.1 % (0.0-3.0) H Basophils (%) (Auto) 1.6 % (0.0-2.0) Reticulocyte Count 1.5 % (0.0-2.0) Prothrombin Time 11.0 SEC (9.30-11.50) Prothromb Time International Ratio 1.1 (0.9-1.1) Activated Partial Thromboplast Time 27 SEC (23-33) Sodium Level 137 mEQ/L (135-145) Potassium Level 3.7 mEQ/L (3.4-4.9) Chloride Level 97 mEQ/L (98-107) L Carbon Dioxide Level 31 mEQ/L (20-30) H Anion Gap 9 (5-15) Blood Urea Nitrogen 12 mg/dL (7-23) Creatinine 1.2 mg/dL (0.7-1.2) Estimat Glomerular Filtration Rate mL/min (>60) Glucose Level 114 mg/dL (74-106) H Hemoglobin A1c 5.8 % (< 6.0) Calcium Level 9.8 mg/dL (8.6-10.2) Iron Level 55 ug/dL (59-158) L Total Iron Binding Capacity 487 ug/dL (250-400) H Percent Iron Saturation 11 % (15-50) L Unsaturated Iron Binding 432 ug/dL (112-346) H Ferritin 8 ng/mL (10-230) L Total Bilirubin 1.4 mg/dL (0.0-1.2) H Direct Bilirubin 0.4 mg/dL (0.1-0.3) H Aspartate Amino Transf (AST/SGOT) 33 U/L (5-40) Alanine Aminotransferase (ALT/SGPT) 28 U/L (3-41) Alkaline Phosphatase 48 U/L (40-129) Total Protein 7.6 g/dL (6.6-8.7) Albumin 3.8 g/dL (3.5-5.2) Globulin 3.8 g/dL Albumin/Globulin Ratio 1.0 (1.0-2.7) Carcinoembryonic Antigen 4.8 ng/mL H Vitamin B12 Level 226 pg/mL (211-946) Folate Pending Thyroid Stimulating Hormone (TSH) 1.250 uIU/mL (0.300-4.500) Free Thyroxine 1.32 ng/dL (0.86-1.85) Current Medications Medications (Trade) Dose Ordered Sig/Eda Route PRN Reason Start Time Stop Time Status Last Admin Dose Admin Acetaminophen (Tylenol) 650 mg Q4H PRN ORAL fever 06/13/17 15:30 07/13/17 15:29 Al Hydroxide/Mg Hydroxide (Mylanta II) 30 ml Q6H PRN ORAL dyspepsia 06/13/17 15:30 07/13/17 15:29 Ceftriaxone Sodium 1 gm/ Dextrose 55 ml @ 110 mls/hr Q24H IVPB 06/13/17 21:00 06/20/17 20:59 06/13/17 22:21 Dextrose (Dextrose 50%) STAT PRN IV Hypoglycemia 06/13/17 15:30 07/13/17 15:29 Dextrose (Dextrose 50%) STAT PRN IV Hypoglycemia 06/13/17 20:15 07/13/17 20:14 Insulin Aspart (NovoLOG) BEFORE MEALS AND HS SUBQ 06/13/17 21:00 07/13/17 20:59 06/14/17 12:48 Lorazepam (Ativan 2mg/ml 1ml) 0.5 mg Q4H PRN IV For Anxiety 06/13/17 15:30 06/20/17 15:29 Morphine Sulfate (Morphine Sulfate) 1 mg EVERY 4 HOURS PRN IVP For Pain 06/13/17 15:30 06/20/17 15:29 Ondansetron HCl (Zofran) 4 mg Q6H PRN IVP Nausea & Vomiting 06/13/17 15:30 07/13/17 15:29 Polyethylene Glycol (Miralax) 17 gm HSPRN PRN ORAL Constipation 06/13/17 15:30 07/13/17 15:29 Zolpidem Tartrate (Ambien) 5 mg HSPRN PRN ORAL Insomnia 06/13/17 15:30 06/20/17 15:29 Boris Mata M.D. Jun 14, 2017 16:55
--- NOTE | 2017-06-14 17:36 | General Progress Note ---
Assessment/Plan Assessment/Plan Assessment - Anemia - Iron deficiency - altered bowel habits - BRBPR - Elevated CEA Recommendations - transfuse PRN - GI prep - EGD / Colon early next week Subjective Allergies: Coded Allergies: No Known Allergies (Unverified , 06/20/14) Objective Last 24 Hour Vital Signs Date Time Temp Pulse Resp B/P (MAP) Pulse Ox O2 Delivery O2 Flow Rate FiO2 06/14/17 16:00 96.8 98 20 141/87 94 Room Air 06/14/17 12:00 96.9 90 20 141/81 92 Room Air 06/14/17 08:00 97.5 104 20 142/84 90 Room Air 06/14/17 04:50 96.8 98 20 139/79 98 Room Air Intake and Output 06/14/17 06/15/17 19:00 07:00 Intake Total 600 ml Output Total 500 ml Balance 100 ml Intake Oral 600 ml Output Urine Total 500 ml Laboratory Tests 06/14/17 06:50: White Blood Count 5.3, Red Blood Count 4.67L, Hemoglobin 9.0L, Hematocrit 30.2L , Mean Corpuscular Volume 65L, Mean Corpuscular Hemoglobin 19.3L, Mean Corpuscular Hemoglobin Concent 29.9L, Red Cell Distribution Width 19.4H, Platelet Count 252, Mean Platelet Volume 8.7, Neutrophils (%) (Auto) 58.6, Lymphocytes (%) (Auto) 16.5L, Monocytes (%) (Auto) 15.1H, Eosinophils (%) (Auto ) 8.1H, Basophils (%) (Auto) 1.6, Reticulocyte Count 1.5, Prothrombin Time 11.0 , Prothromb Time International Ratio 1.1, Activated Partial Thromboplast Time 27 , Sodium Level 137, Potassium Level 3.7, Chloride Level 97L, Carbon Dioxide Level 31H, Anion Gap 9, Blood Urea Nitrogen 12, Creatinine 1.2, Estimat Glomerular Filtration Rate , Glucose Level 114H, Hemoglobin A1c 5.8, Calcium Level 9.8, Iron Level 55L, Total Iron Binding Capacity 487H, Percent Iron Saturation 11L, Unsaturated Iron Binding 432H, Ferritin 8L, Total Bilirubin 1.4H , Direct Bilirubin 0.4H, Aspartate Amino Transf (AST/SGOT) 33, Alanine Aminotransferase (ALT/SGPT) 28, Alkaline Phosphatase 48, Total Protein 7.6, Albumin 3.8, Globulin 3.8, Albumin/Globulin Ratio 1.0, Carcinoembryonic Antigen 4.8H, Vitamin B12 Level 226, Folate [Pending], Thyroid Stimulating Hormone (TSH ) 1.250, Free Thyroxine 1.32 Height (Feet): 5 Height (Inches): 7.00 Weight (Pounds): 180 MILAD GREER Jun 14, 2017 17:36
[2017-06-14 20:00] VITALS: BP 122/83
--- NOTE | 2017-06-14 20:00 | Consultation ---
DATE OF CONSULTATION: 06/14/2017 INFECTIOUS DISEASE CONSULTATION CONSULTING PHYSICIAN: Boris Mata M.D. REQUESTING PHYSICIAN: Bry Santiago D.O. REASON FOR CONSULTATION: Urinary tract infection. HISTORY OF PRESENT ILLNESS: The patient is a 76-year-old male with history of diabetes and hypertension, presented to [facility] with lightheadedness, almost passing out for couple of days, mainly when he walks. The patient denied any vertigo. Denied any fall or trauma to the head. He fell couple of days ago and sustained injury to the left elbow since then. He denied any fever or chills. No cough or shortness of breath. No chest pain. No nausea, vomiting, or diarrhea. He had mild dysuria, but no hematuria. PAST MEDICAL HISTORY: Significant for old CVA, coronary artery disease, hypertension, diabetes, and GERD. PAST SURGICAL HISTORY: Negative. SOCIAL HISTORY: The patient lives with family. Retired. No recent drugs, tobacco, or alcohol. FAMILY HISTORY: Not contributory. ALLERGIES: He has no known drug allergy. MEDICATIONS: Please refer to MAR. PHYSICAL EXAMINATION: VITAL SIGNS: Temperature 96.9, pulse 90, respirations 20, and blood pressure 141/81. Saturation 92% on room air. GENERAL: Middle-aged male, up in chair awake and alert, not in distress. HEENT: Normocephalic and atraumatic. Pupils are reactive to light. Moist oral mucosa. No exudate. NECK: Supple with no lymphadenopathy. CARDIOVASCULAR: Regular rate and rhythm. No murmur. LUNGS: Clear bilaterally. No wheezing or rhonchi. ABDOMEN: Soft, nontender, and nondistended. Positive bowel sounds. EXTREMITIES: No edema or cyanosis. LABORATORY DATA: White count 5.3, hemoglobin 9, and platelet count 252,000. BUN 12 and creatinine 1.2. Urinalysis showed +2 leukocyte esterase, wbc's 5 to 10, red blood cells 0 to 2, and occasional bacteria in the urine. IMAGING: Chest x-ray on admission showed no acute disease. Elbow x-ray showed osteopenia. ASSESSMENT AND RECOMMENDATION: 1. Urinary tract infection. We will send urine for culture. Start ceftriaxone empirically. 2. Generalized weakness, could be due to urinary tract infection. Rule out other etiologies such as new CVA and screen for hypothyroidism. Continue antibiotics to treat urinary tract infection. 3. Lightheadedness and loss of consciousness. Recommend neuro consult and further workup to rule out CVA. 4. Hypertension. Continue medications. Monitor blood pressure. Boris Mata M.D. DR: NICOL JOB#: [id number] CC:
[2017-06-14] MEDS: cefTRIAXone 1 GM in D5W 55 ML IVPB SCH (21:27)
[2017-06-15] VITALS: BP 158/91
[2017-06-15 04:00] VITALS: BP 133/72
[2017-06-15] MEDS: NovoLOG Insulin Flexpen SUBQ SCH ×4 (06:12→21:00)
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
[2017-06-15 07:04] LABS: BASOPHILS % (AUTO) 0.9 % (0.0-2.0); LYMPHOCYTES % (AUTO) 17.7 % (20.0-45.0); MEAN CORPUSCULAR HEMOGLOBIN 18.4 PG (27.0-31.0); MEAN CORPUSCULAR HGB CONC 28.7 G/DL (32.0-36.0); MEAN CORPUSCULAR VOLUME 64 FL (80-99); MEAN PLATELET VOLUME 8.3 FL (6.5-10.1); MONOCYTES % (AUTO) 13.5 % (1.0-10.0); NEUTROPHILS % (AUTO) 59.9 % (45.0-75.0); PLATELET COUNT 269 K/UL (150-450); RED BLOOD COUNT 5.26 M/UL (4.70-6.10); RED CELL DISTRIBUTION WIDTH 19.3 % (11.6-14.8); WHITE BLOOD COUNT 6.6 K/UL (4.8-10.8)
[2017-06-15 07:44] LABS: ANION GAP 14 (5-15); CALCIUM 9.8 mg/dL (8.6-10.2); CARBON DIOXIDE 27 mEQ/L (20-30); CHLORIDE 97 mEQ/L (98-107); HEMOLYSIS 7; POTASSIUM 3.8 mEQ/L (3.4-4.9); SODIUM 138 mEQ/L (135-145)
[2017-06-15 08:00] VITALS: BP 103/70
[2017-06-15] MEDS ORDERED: Bisacodyl EC 5mg tab ORAL ONE (08:00)
[2017-06-15] MEDS ORDERED: Nulytely 4L ORAL ONE (08:00)
--- NOTE | 2017-06-15 08:09 | General Progress Note ---
Assessment/Plan Problem List: (1) HTN (hypertension) ICD Codes: I10 - Essential (primary) hypertension SNOMED: 27132192 (2) Diabetes ICD Codes: E11.9 - Type 2 diabetes mellitus without complications SNOMED: 60629008 (3) Renal insufficiency ICD Codes: N28.9 - Disorder of kidney and ureter, unspecified SNOMED: 621842589 (4) Generalized weakness ICD Codes: R53.1 - Weakness SNOMED: 94463524 (5) Anemia ICD Codes: D64.9 - Anemia, unspecified SNOMED: 210282292 (6) UTI (urinary tract infection) ICD Codes: N39.0 - Urinary tract infection, site not specified SNOMED: 22573413 (7) Hypertension ICD Codes: I10 - Essential (primary) hypertension SNOMED: 56942576 Status: stable, progressing, tolerating diet Assessment/Plan ot pt dietm abx transfuse prn ivf cbc bmp am pending colonoscopy Subjective Allergies: Coded Allergies: No Known Allergies (Unverified , 06/20/14) All Systems: reviewed and negative except above Subjective calm in bed Objective Last 24 Hour Vital Signs Date Time Temp Pulse Resp B/P (MAP) Pulse Ox O2 Delivery O2 Flow Rate FiO2 06/15/17 04:00 97.5 108 20 133/72 97 Room Air 06/15/17 00:00 97.5 103 20 158/91 95 Room Air 06/14/17 20:00 96.8 104 20 122/83 92 Room Air 06/14/17 16:00 96.8 98 20 141/87 94 Room Air 06/14/17 12:00 96.9 90 20 141/81 92 Room Air Laboratory Tests 06/15/17 05:20: White Blood Count 6.6, Red Blood Count 5.26, Hemoglobin 9.7L, Hematocrit 33.8L, Mean Corpuscular Volume 64L, Mean Corpuscular Hemoglobin 18.4L, Mean Corpuscular Hemoglobin Concent 28.7L, Red Cell Distribution Width 19.3H, Platelet Count 269, Mean Platelet Volume 8.3, Neutrophils (%) (Auto) 59.9, Lymphocytes (%) (Auto) 17.7L, Monocytes (%) (Auto) 13.5H, Eosinophils (%) (Auto ) 8.0H, Basophils (%) (Auto) 0.9, Sodium Level 138, Potassium Level 3.8, Chloride Level 97L, Carbon Dioxide Level 27, Anion Gap 14, Blood Urea Nitrogen 10, Creatinine 1.0, Estimat Glomerular Filtration Rate , Glucose Level 111H, Calcium Level 9.8 Height (Feet): 5 Height (Inches): 7.00 Weight (Pounds): 180 General Appearance: alert EENT: normal ENT inspection Neck: normal alignment Cardiovascular: normal peripheral pulses, normal rate, regular rhythm Respiratory/Chest: chest wall non-tender, lungs clear, normal breath sounds Abdomen: normal bowel sounds, non tender, soft Extremities: normal inspection Edema: no edema noted Arm (L), no edema noted Arm (R), no edema noted Leg (L), no edema noted Leg (R), no edema noted Pedal (L), no edema noted Pedal (R), no edema noted Generalized Neurologic: responsive, motor weakness Skin: normal pigmentation, warm/dry SOLEDAD MORRIS Jun 15, 2017 08:09
--- NOTE | 2017-06-15 08:48 | Pulmonology Progress Note ---
Assessment/Plan Assessment/Plan ASSESSMENT acute microcytic anemia requiring blood transfusion iron deficiency anemia elevated CEA r/o GI bleeding, r/o malignancy vertigo ( due to anemia)-resolved s/p mechanical fall left elbow pain HTN DM pyuria, possible UTI PLAN OF CARE MS floor s/p blood transfusion anemia workup c/w anemia of iron deficiency anemia iron IV x 1 today check stool OB, elevated CEA GI follows further w/up as per GI ( concern for malignancy) Venous Duplex BLE fall precautions X ray L elbow - no acute fracture , but + osteopenia pain management PT/OT BS management with SS of insulin BP management , currently not on any anti HTN, monitor and optimize treatment as needed Bowel regimen UA + pyuria, no bacteria, cx + GNBm colony count 20-30 only, ? dc abx - per ID case discussed and evaluated by supervising physician Subjective Allergies: Coded Allergies: No Known Allergies (Unverified , 06/20/14) Subjective afebrile, no leukocytosis HH up after transfusion elevated CEA no further dizziness no chest pain, no SOB still some pain L elbow, X ray L elbow - no fracture Objective Last 24 Hour Vital Signs Date Time Temp Pulse Resp B/P (MAP) Pulse Ox O2 Delivery O2 Flow Rate FiO2 06/15/17 08:00 98.1 102 18 103/70 94 Room Air 06/15/17 04:00 97.5 108 20 133/72 97 Room Air 06/15/17 00:00 97.5 103 20 158/91 95 Room Air 06/14/17 20:00 96.8 104 20 122/83 92 Room Air 06/14/17 16:00 96.8 98 20 141/87 94 Room Air 06/14/17 12:00 96.9 90 20 141/81 92 Room Air Objective General Appearance: no apparent distress, alert - A/A/O x 4 male in NAD Lines, tubes and drains: peripheral HEENT: normocephalic, atraumatic, anicteric, mucous membranes moist Neck: non-tender, supple Respiratory/Chest: chest wall non-tender, lungs clear, no respiratory distress , no accessory muscle use Cardiovascular/Chest: normal peripheral pulses, normal rate, regular rhythm Abdomen: normal bowel sounds, non tender, soft Extremities: normal range of motion, non-tender, no calf tenderness, mild edema Left elbow, no TTP Skin Exam: warm/dry Neurologic: no motor/sensory deficits, alert, oriented x 3, responsive Musculoskeletal: normal muscle bulk Microbiology Date/Time Source Procedure Growth Status 06/14/17 05:30 Urine,Clean Catch Urine Culture - Preliminary Gram Negative Bacillus 1 Resulted Laboratory Tests 06/15/17 05:20: White Blood Count 6.6, Red Blood Count 5.26, Hemoglobin 9.7L, Hematocrit 33.8L, Mean Corpuscular Volume 64L, Mean Corpuscular Hemoglobin 18.4L, Mean Corpuscular Hemoglobin Concent 28.7L, Red Cell Distribution Width 19.3H, Platelet Count 269, Mean Platelet Volume 8.3, Neutrophils (%) (Auto) 59.9, Lymphocytes (%) (Auto) 17.7L, Monocytes (%) (Auto) 13.5H, Eosinophils (%) (Auto ) 8.0H, Basophils (%) (Auto) 0.9, Sodium Level 138, Potassium Level 3.8, Chloride Level 97L, Carbon Dioxide Level 27, Anion Gap 14, Blood Urea Nitrogen 10, Creatinine 1.0, Estimat Glomerular Filtration Rate , Glucose Level 111H, Calcium Level 9.8 Current Medications Medications (Trade) Dose Ordered Sig/Eda Route PRN Reason Start Time Stop Time Status Last Admin Dose Admin Acetaminophen (Tylenol) 650 mg Q4H PRN ORAL fever 06/13/17 15:30 07/13/17 15:29 Al Hydroxide/Mg Hydroxide (Mylanta II) 30 ml Q6H PRN ORAL dyspepsia 06/13/17 15:30 07/13/17 15:29 Ceftriaxone Sodium 1 gm/ Dextrose 55 ml @ 110 mls/hr Q24H IVPB 06/13/17 21:00 06/20/17 20:59 06/14/17 21:27 Dextrose (Dextrose 50%) STAT PRN IV Hypoglycemia 06/13/17 20:15 07/13/17 20:14 Insulin Aspart (NovoLOG) BEFORE MEALS AND HS SUBQ 06/13/17 21:00 07/13/17 20:59 06/14/17 21:29 Lorazepam (Ativan 2mg/ml 1ml) 0.5 mg Q4H PRN IV For Anxiety 06/13/17 15:30 06/20/17 15:29 Morphine Sulfate (Morphine Sulfate) 1 mg EVERY 4 HOURS PRN IVP For Pain 06/13/17 15:30 06/20/17 15:29 Ondansetron HCl (Zofran) 4 mg Q6H PRN IVP Nausea & Vomiting 06/13/17 15:30 07/13/17 15:29 Polyethylene Glycol (Miralax) 17 gm HSPRN PRN ORAL Constipation 06/13/17 15:30 07/13/17 15:29 Zolpidem Tartrate (Ambien) 5 mg HSPRN PRN ORAL Insomnia 06/13/17 15:30 06/20/17 15:29 Wilfredo ThomasGloria florentino NP Jun 15, 2017 08:48
[2017-06-15 08:49] LABS: OTHERS PATHOLOGIST COMMENT
[2017-06-15] MEDS ORDERED: Iron Sucrose 100 MG in NS 55 ML IV ONE (09:45)
[2017-06-15 12:00] VITALS: BP 135/89
[2017-06-15 16:00] VITALS: BP 162/95
--- NOTE | 2017-06-15 17:18 | General Progress Note ---
Assessment/Plan Assessment/Plan Assessment - Anemia - Iron deficiency - altered bowel habits - BRBPR - Elevated CEA Recommendations - transfuse PRN - GI prep - EGD / Colon in am Subjective Allergies: Coded Allergies: No Known Allergies (Unverified , 06/20/14) Subjective taking golytely feeling OK no abd pain Objective Last 24 Hour Vital Signs Date Time Temp Pulse Resp B/P (MAP) Pulse Ox O2 Delivery O2 Flow Rate FiO2 06/15/17 16:53 97.0 06/15/17 16:00 97.0 96 20 162/95 94 Room Air 06/15/17 12:00 97.7 95 17 135/89 94 Room Air 06/15/17 08:00 98.1 102 18 103/70 94 Room Air 06/15/17 04:00 97.5 108 20 133/72 97 Room Air 06/15/17 00:00 97.5 103 20 158/91 95 Room Air 06/14/17 20:00 96.8 104 20 122/83 92 Room Air Laboratory Tests 06/15/17 05:20: White Blood Count 6.6, Red Blood Count 5.26, Hemoglobin 9.7L, Hematocrit 33.8L, Mean Corpuscular Volume 64L, Mean Corpuscular Hemoglobin 18.4L, Mean Corpuscular Hemoglobin Concent 28.7L, Red Cell Distribution Width 19.3H, Platelet Count 269, Mean Platelet Volume 8.3, Neutrophils (%) (Auto) 59.9, Lymphocytes (%) (Auto) 17.7L, Monocytes (%) (Auto) 13.5H, Eosinophils (%) (Auto ) 8.0H, Basophils (%) (Auto) 0.9, Sodium Level 138, Potassium Level 3.8, Chloride Level 97L, Carbon Dioxide Level 27, Anion Gap 14, Blood Urea Nitrogen 10, Creatinine 1.0, Estimat Glomerular Filtration Rate , Glucose Level 111H, Calcium Level 9.8 Height (Feet): 5 Height (Inches): 7.00 Weight (Pounds): 180 Objective WDWN AA man NCAT supple CTA RRR Soft NT ND no edema non focal MILAD GREER Jun 15, 2017 17:18
[2017-06-15 20:00] VITALS: BP 143/86
[2017-06-15] MEDS: cefTRIAXone 1 GM in D5W 55 ML IVPB SCH (21:54)
[2017-06-16] VITALS (8 sets, daily range): BP systolic 123–148; BP diastolic 84–94
[2017-06-16 06:17] LABS: EOSINOPHILS % (AUTO) 9.6 % (0.0-3.0); LYMPHOCYTES % (AUTO) 19.6 % (20.0-45.0); MEAN CORPUSCULAR HEMOGLOBIN 18.5 PG (27.0-31.0); MEAN CORPUSCULAR HGB CONC 28.8 G/DL (32.0-36.0); MEAN CORPUSCULAR VOLUME 64 FL (80-99); MEAN PLATELET VOLUME 7.9 FL (6.5-10.1); MONOCYTES % (AUTO) 12.1 % (1.0-10.0); NEUTROPHILS % (AUTO) 57.8 % (45.0-75.0); PLATELET COUNT 276 K/UL (150-450); RED BLOOD COUNT 5.24 M/UL (4.70-6.10); RED CELL DISTRIBUTION WIDTH 19.5 % (11.6-14.8); WHITE BLOOD COUNT 4.9 K/UL (4.8-10.8)
[2017-06-16] MEDS: NovoLOG Insulin Flexpen SUBQ SCH ×2 (06:30→12:12)
[2017-06-16 06:41] LABS: ANION GAP 13 (5-15); CALCIUM 9.7 mg/dL (8.6-10.2); CARBON DIOXIDE 28 mEQ/L (20-30); CHLORIDE 98 mEQ/L (98-107); CREATININE 0.9 mg/dL (0.7-1.2); HEMOLYSIS 0; POTASSIUM 3.6 mEQ/L (3.4-4.9); SODIUM 139 mEQ/L (135-145)
[2017-06-16] MEDS ORDERED: Lidocaine 1% MPF 10mg/ml 5ml ONE (08:00)
[2017-06-16] MEDS ORDERED: Propofol 200mg/20ml IV ONE (08:00)
[2017-06-16] MEDS ORDERED: Alfentanil 2ml Inj ONE (08:00)
[2017-06-16] MEDS ORDERED: LR 1000ml ONE (08:00)
[2017-06-16] MEDS ORDERED: Midazolam 2mg/2ml Inj ONE (08:00)
--- NOTE | 2017-06-16 08:06 | Pre-Procedure Note/Attestation ---
Pre-Procedure Note/Attestation Complete Prior to Procedure Planned Procedure: not applicable Procedure Narrative: esophagogastroduodenoscopy and colonoscopy Indications for Procedure Pre-Operative Diagnosis: abd pain Attestation I attest that I discussed the nature of the procedure; its benefits; risks and complications; and alternatives (and the risks and benefits of such alternatives ), prior to the procedure, with the patient (or the patient's legal abrasives sales representative). I attest that, if there was a reasonable possibility of needing a blood transfusion, the patient (or the patient's legal abrasives sales representative) was given the [facility] standardized written summary, pursuant to the [place] Blood Safety Act ([place] Health and Safety Code # 1645, as amended). I attest that I re-evaluated the patient just prior to the surgery and that there has been no change in the patient's H&P, except as documented below: ZOILA RUSSO Jun 16, 2017 08:06
[2017-06-16] MEDS ORDERED: LR 1000ml 1,000 ML IVLG SCH (08:23)
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
--- NOTE | 2017-06-16 08:25 | Immediate Post-Op Evaluation ---
Immediate Post-Op Evalulation Immediate Post-Op Evalulation Procedure: EGD/Colonoscopy Date of Evaluation: Jun 16, 2017 Time of Evaluation: 08:58 IV Fluids: 200 NS Blood Products: 0 Estimated Blood Loss: 1 Urinary Output: 0 Blood Pressure Systolic: 123 Blood Pressure Diastolic: 84 Pulse Rate: 88 Respiratory Rate: 16 O2 Sat by Pulse Oximetry: 97 Temperature (Fahrenheit): 98.4 Pain Score (1-10): 1 Nausea: No Vomiting: No Complications 0 Patient Status: awake, reacts, patent, none Hydration Status: adequate Jhonatan Johns MD Jun 16, 2017 08:25
--- NOTE | 2017-06-16 08:26 | 48 Hour Post Anesthesia Eval ---
Post Anesthesia Evaluation Procedure: EGD/Colonoscopy Date of Evaluation: Jun 16, 2017 Time of Evaluation: 11:13 Blood Pressure Systolic: 132 0: 89 Pulse Rate: 88 Respiratory Rate: 18 Temperature (Fahrenheit): 98.6 O2 Sat by Pulse Oximetry: 99 Airway: patent Nausea: No Vomiting: No Pain Intensity: 1 Hydration Status: adequate Cardiopulmonary Status: Stable Mental Status/LOC: patient returned to baseline Follow-up Care/Observations: 0 Post-Anesthesia Complications: 0 Follow-up care needed: ready to discharge Jhonatan Johns MD Jun 16, 2017 08:26
[2017-06-16] MEDS ORDERED: DiphenhydrAMINE 50mg/ml Inj IVP PRN (08:30)
[2017-06-16] MEDS ORDERED: Metoclopramide 10mg/2ml Inj IVP PRN (08:30)
[2017-06-16] MEDS ORDERED: Atropine Inj 1mg/10ml Syr IV PRN (08:30)
[2017-06-16] MEDS ORDERED: oxyCODONE HCL/Acetaminophen 5/325mg ORAL PRN (08:30)
[2017-06-16] MEDS ORDERED: Norco 7.5mg/325mg tab ORAL PRN (08:30)
[2017-06-16] MEDS ORDERED: fentaNYL 100 mcg/2 mL IV PRN (08:30)
[2017-06-16] MEDS ORDERED: Norco 5mg/325mg tab ORAL PRN (08:30)
[2017-06-16] MEDS ORDERED: LORazepam Inj 2mg/ml 1ml IV PRN (08:30)
[2017-06-16] MEDS ORDERED: Ketorolac 60mg Inj IV PRN (08:30)
[2017-06-16] MEDS ORDERED: Ketorolac 30mg Inj IV PRN (08:30)
[2017-06-16] MEDS ORDERED: Meperidine 25mg/0.5ml Inj (FOR RIGORS ONLY) IV PRN (08:30)
[2017-06-16] MEDS ORDERED: Midazolam 2mg/2ml Inj IVP PRN (08:30)
[2017-06-16] MEDS ORDERED: Hydromorphone 0.5mg/0.5ml inj IVP PRN (08:30)
--- NOTE | 2017-06-16 08:42 | Endoscopy Procedure Note ---
Endoscopy Procedure Note Indication for Procedure: abd pain Procedures Performed: EGD, colonoscopy Operative Findings/Diagnosis: gastritis, multiple polyps Specimen: yes Pt Tolerated Procedure Well: Yes Estimated Blood Loss: none Anesthesiologist: diallo Anesthesia: MAC Implant(s) used?: No 50 yrs or older w/o bx or poly: Not Applicable 10yrs. F/U not recommended: Not Applicable ZOILA RUSSO Jun 16, 2017 08:42
--- NOTE | 2017-06-16 09:45 | Consultation ---
DATE OF CONSULTATION: 06/13/2017 HEMATOLOGY/ONCOLOGY CONSULTATION REQUESTING PHYSICIAN: Bry Santiago D.O. REASON FOR CONSULTATION: Evaluation of anemia, leukopenia, . IDENTIFICATION DATA: Dear Dr. Bry Santiago, The patient is a pleasant 76-year-old male, , generalized weakness, lightheadedness . The patient denies any . The patient was noted to have no other major . Over the past several days noted to have . Therefore, Hematology service was consulted for evaluation and treatment. PAST MEDICAL HISTORY: As stated above. PAST SURGICAL HISTORY: None noted. ALLERGIES: No known drug allergies. SOCIAL HISTORY: No alcohol, tobacco, or illicit drug use. FAMILY HISTORY: Noncontributory. REVIEW OF SYSTEMS: Constitutional: No fever, chills, or night sweats. Skin: No rashes, bumps, or itching. HEENT: No headache, hearing or vision changes. Breasts: No lumps, pain, or discharge. Pulmonary: No cough, sputum, or shortness of breath. Gastrointestinal: No nausea, vomiting, or diarrhea. Genitourinary: No dysuria, frequency, or urgency. Musculoskeletal: No joint swelling, muscle pain, or trauma. PHYSICAL EXAMINATION: GENERAL: The patient is in no acute distress. VITAL SIGNS: Temperature degrees Fahrenheit, pulse of 82, respiratory rate 12, blood pressure 126/70, and pulse oximetry 95% on room air. PULMONARY: Decreased breath sounds. CARDIOVASCULAR: Regular rate. No S3 or S4. ABDOMEN: Soft, nontender, and nondistended. EXTREMITIES: A 1+ edema. LABORATORY AND DIAGNOSTIC DATA: WBC of 4.2, hemoglobin 7.9, hematocrit 27, and platelets 236,000. Chest x-ray showing no acute disease noted. ASSESSMENT/PLAN: 1. has been ordered. Results at this time are pending. 2. . 3. GI service consulted to evaluate the patient's . 4. Leukopenia with infection. Continue closely monitor. 5. syndrome . Continue closely monitor. I appreciate the consultation. Houston Fountain M.D. DR: AMBER JOB#: [id number] CC:
--- NOTE | 2017-06-16 10:37 | General Progress Note ---
Assessment/Plan Assessment/Plan 1. Microcytic anemia 2/2 to iron deficiency --> anemia work up reviewed. ferritin low, TIBC elevated. --> s/p blood transfusion --> iv iron has been started 2. Anemia with decrease in hemoglobin and hematocrit --> rule out GI bleed. GI service is on board --> egd/colo scheduled 3. Elevated CEA 4. Leukopenia likely 2/2 infection. Continue closely monitor. 5. Pyuria Subjective Date patient seen: Jun 15, 2017 Constitutional: Reports: no symptoms HEENT: Reports: no symptoms Cardiovascular: Reports: no symptoms Respiratory: Reports: no symptoms Gastrointestinal/Abdominal: Reports: no symptoms Genitourinary: Reports: no symptoms Neurologic/Psychiatric: Reports: no symptoms Endocrine: Reports: no symptoms Hematologic/Lymphatic: Reports: anemia Allergies: Coded Allergies: No Known Allergies (Unverified , 06/20/14) Subjective feels ok Objective Last 24 Hour Vital Signs Date Time Temp Pulse Resp B/P (MAP) Pulse Ox O2 Delivery O2 Flow Rate FiO2 06/16/17 09:08 98.6 83 13 140/93 100 Nasal Cannula 3.0 06/16/17 08:57 83 15 140/87 100 Nasal Cannula 3.0 06/16/17 08:52 86 23 125/85 100 Nasal Cannula 3.0 06/16/17 08:48 88 18 99 06/16/17 08:47 98.4 86 20 123/84 95 Simple Mask 6.0 06/16/17 08:47 88 16 97 06/16/17 04:00 97.7 83 16 137/91 94 Room Air 06/16/17 00:00 97.1 86 16 148/91 95 Room Air 06/15/17 20:00 97.3 92 18 143/86 96 Room Air 06/15/17 16:53 97.0 06/15/17 16:00 97.0 96 20 162/95 94 Room Air 06/15/17 12:00 97.7 95 17 135/89 94 Room Air Intake and Output 06/16/17 06/17/17 19:00 07:00 Intake Total 200 ml Balance 200 ml IV Total 200 ml Laboratory Tests 06/16/17 04:50: White Blood Count 4.9, Red Blood Count 5.24, Hemoglobin 9.7L, Hematocrit 33.7L, Mean Corpuscular Volume 64L, Mean Corpuscular Hemoglobin 18.5L, Mean Corpuscular Hemoglobin Concent 28.8L, Red Cell Distribution Width 19.5H, Platelet Count 276, Mean Platelet Volume 7.9, Neutrophils (%) (Auto) 57.8, Lymphocytes (%) (Auto) 19.6L, Monocytes (%) (Auto) 12.1H, Eosinophils (%) (Auto ) 9.6H, Basophils (%) (Auto) 1.0, Sodium Level 139, Potassium Level 3.6, Chloride Level 98, Carbon Dioxide Level 28, Anion Gap 13, Blood Urea Nitrogen 6L , Creatinine 0.9, Estimat Glomerular Filtration Rate , Glucose Level 125H, Calcium Level 9.7 Height (Feet): 5 Height (Inches): 5.00 Weight (Pounds): 219 General Appearance: no apparent distress EENT: normal ENT inspection Neck: non-tender Cardiovascular: normal peripheral pulses Extremities: normal range of motion Skin: warm/dry Houston Fountain Jun 16, 2017 10:37
--- NOTE | 2017-06-16 13:19 | Diagnostic Imaging Report ---
Clinical Indication: Abdominal pain, gastritis, anemia, elevated CTA, status post recent colonoscopy Technique: No oral contrast utilized, per emergency room physician request IV administration nonionic contrast. Venous phase spiral acquisition obtained through the abdomen and pelvis. Multiplanar reconstructions were generated. Total dose length product 886 mGycm. CTDIvol(s) 18 mGy. Dose reduction achieved using automated exposure control Comparison: None Findings: No evidence of diverticulosis or diverticulitis. The appendix is normal. No small bowel distention. Contrast is seen throughout the entirety of the small bowel, reaching as far distally as the proximal transverse colon. No small bowel wall thickening. No free or loculated peritoneal air or fluid. There is a small fat-containing right inguinal hernia. The distal is unremarkable. There is equivocal wall thickening of the gastric antrum, but this is likely artifact of under distention. The liver is somewhat atrophic, demonstrates nodular surface contour compatible with cirrhosis. Within segment 6, there is a subcentimeter low-attenuation lesion which is too small to characterize. 2 similar lesions are seen within segment 8. The gallbladder is nondistended. No gross gallstones. The bile ducts are unremarkable. The pancreas is unremarkable. There are a few prominent but not frankly enlarged peripancreatic lymph nodes. The spleen demonstrates a capsular calcification. The adrenals are unremarkable. The right kidney demonstrates a 4.6 cm interpolar region lesion which demonstrates nonspecific attenuation. A similar lesion is seen in the lower pole of left kidney, likewise demonstrating nonspecific attenuation, measures 4.7 cm in diameter. Ultrasound likewise demonstrates that this is a cyst. Other subcentimeter low-attenuation lesions are seen within both kidneys and are small to characterize. No retroperitoneal or mesenteric mass or adenopathy. No pelvic mass or adenopathy. The bladder is equivocally mildly thickwalled, although is not well distended. The prostate is slightly prominent. The included lung bases demonstrate a slight degree of hyperinflation and there is some focal bronchiectasis in the posteromedial right hepatic lobe. The bones demonstrate degenerative spondylosis changes. Impression: Equivocal mild gastric antral wall thickening. Probably artifact of under distention but if real could correlate with stated clinical history of gastritis Somewhat atrophic liver with nodular surface contour, suspicious for cirrhosis Subcentimeter low-attenuation lesions within the liver which are too small to characterize but most likely represent benign simple cysts or bile hamartomas. No further followup is necessary Bilateral renal lesions, as described. These demonstrate nonspecific soft tissue attenuation. However, on recent ultrasound these are demonstrated to be cystic, so presumably represent benign cysts with proteinaceous material Other low-attenuation lesions within the kidneys which are too small to characterize, most likely benign simple cysts. No further followup is necessary Equivocal mild bladder wall thickening, probably artifact of under distention, cystitis not completely excludable, however. Right lower lobe focal pulmonary bronchiectasis. Equivocal bilateral hyperinflation Other findings as described, including degenerative spondylosis, prominent prostate, small fat-containing right inguinal hernia The CT scanner at [facility] is accredited by the [employer] and the scans are performed using protocols designed to limit radiation exposure to as low as reasonably achievable to attain images of sufficient resolution adequate for diagnostic evaluation.
--- NOTE | 2017-06-16 13:47 | General Progress Note ---
Assessment/Plan Problem List: (1) HTN (hypertension) ICD Codes: I10 - Essential (primary) hypertension SNOMED: 35163425 (2) Diabetes ICD Codes: E11.9 - Type 2 diabetes mellitus without complications SNOMED: 52265165 (3) Renal insufficiency ICD Codes: N28.9 - Disorder of kidney and ureter, unspecified SNOMED: 113000600 (4) Generalized weakness ICD Codes: R53.1 - Weakness SNOMED: 95376260 (5) Anemia ICD Codes: D64.9 - Anemia, unspecified SNOMED: 010201390 (6) UTI (urinary tract infection) ICD Codes: N39.0 - Urinary tract infection, site not specified SNOMED: 96492766 (7) Hypertension ICD Codes: I10 - Essential (primary) hypertension SNOMED: 80172962 Status: stable, progressing, tolerating diet Assessment/Plan cleared by gi dc home w hh Subjective Constitutional: Reports: weakness Allergies: Coded Allergies: No Known Allergies (Unverified , 06/20/14) All Systems: reviewed and negative except above Subjective calm in bed Objective Last 24 Hour Vital Signs Date Time Temp Pulse Resp B/P (MAP) Pulse Ox O2 Delivery O2 Flow Rate FiO2 06/16/17 12:00 97.6 92 20 147/94 96 Room Air 06/16/17 09:08 98.6 83 13 140/93 100 Nasal Cannula 3.0 06/16/17 08:57 83 15 140/87 100 Nasal Cannula 3.0 06/16/17 08:52 86 23 125/85 100 Nasal Cannula 3.0 06/16/17 08:48 88 18 99 06/16/17 08:47 98.4 86 20 123/84 95 Simple Mask 6.0 06/16/17 08:47 88 16 97 06/16/17 04:00 97.7 83 16 137/91 94 Room Air 06/16/17 00:00 97.1 86 16 148/91 95 Room Air 06/15/17 20:00 97.3 92 18 143/86 96 Room Air 06/15/17 16:53 97.0 06/15/17 16:00 97.0 96 20 162/95 94 Room Air Intake and Output 06/16/17 06/17/17 19:00 07:00 Intake Total 200 ml Balance 200 ml IV Total 200 ml Laboratory Tests 06/16/17 04:50: White Blood Count 4.9, Red Blood Count 5.24, Hemoglobin 9.7L, Hematocrit 33.7L, Mean Corpuscular Volume 64L, Mean Corpuscular Hemoglobin 18.5L, Mean Corpuscular Hemoglobin Concent 28.8L, Red Cell Distribution Width 19.5H, Platelet Count 276, Mean Platelet Volume 7.9, Neutrophils (%) (Auto) 57.8, Lymphocytes (%) (Auto) 19.6L, Monocytes (%) (Auto) 12.1H, Eosinophils (%) (Auto ) 9.6H, Basophils (%) (Auto) 1.0, Sodium Level 139, Potassium Level 3.6, Chloride Level 98, Carbon Dioxide Level 28, Anion Gap 13, Blood Urea Nitrogen 6L , Creatinine 0.9, Estimat Glomerular Filtration Rate , Glucose Level 125H, Calcium Level 9.7 Height (Feet): 5 Height (Inches): 5.00 Weight (Pounds): 219 General Appearance: alert EENT: normal ENT inspection Neck: normal alignment Cardiovascular: normal peripheral pulses, normal rate, regular rhythm Respiratory/Chest: chest wall non-tender, lungs clear, normal breath sounds Abdomen: normal bowel sounds, non tender, soft Extremities: normal inspection Edema: no edema noted Arm (L), no edema noted Arm (R), no edema noted Leg (L), no edema noted Leg (R), no edema noted Pedal (L), no edema noted Pedal (R), no edema noted Generalized Neurologic: responsive, motor weakness Skin: normal pigmentation, warm/dry SOLEDAD MORRIS Jun 16, 2017 13:47
--- NOTE | 2017-06-16 17:11 | General Progress Note ---
Assessment/Plan Assessment/Plan 1. Microcytic anemia 2/2 to iron deficiency --> anemia work up reviewed. ferritin low, TIBC elevated. --> s/p blood transfusion --> continue outpatient iron --> HH stable at this time 2. Anemia with decrease in hemoglobin and hematocrit --> rule out GI bleed. GI service is on board --> s/p egd/colo 3. Elevated CEA --> CT abdomen pelvis reviewed, no evidence of major lesions or abnormalities besides cysts 4. Leukopenia likely 2/2 infection. Continue closely monitor. --> ID service on board 5. Urinary tract infection Subjective Constitutional: Reports: no symptoms HEENT: Reports: no symptoms Cardiovascular: Reports: no symptoms Respiratory: Reports: no symptoms Gastrointestinal/Abdominal: Reports: no symptoms Genitourinary: Reports: no symptoms Neurologic/Psychiatric: Reports: no symptoms Endocrine: Reports: no symptoms Hematologic/Lymphatic: Reports: no symptoms Allergies: Coded Allergies: No Known Allergies (Unverified , 06/20/14) Subjective calm demeanor, no events overnight Objective Last 24 Hour Vital Signs Date Time Temp Pulse Resp B/P (MAP) Pulse Ox O2 Delivery O2 Flow Rate FiO2 06/16/17 16:00 97.7 96 20 148/86 96 Room Air 06/16/17 12:00 97.6 92 20 147/94 96 Room Air 06/16/17 09:08 98.6 83 13 140/93 100 Nasal Cannula 3.0 06/16/17 08:57 83 15 140/87 100 Nasal Cannula 3.0 06/16/17 08:52 86 23 125/85 100 Nasal Cannula 3.0 06/16/17 08:48 88 18 99 06/16/17 08:47 98.4 86 20 123/84 95 Simple Mask 6.0 06/16/17 08:47 88 16 97 06/16/17 04:00 97.7 83 16 137/91 94 Room Air 06/16/17 00:00 97.1 86 16 148/91 95 Room Air 06/15/17 20:00 97.3 92 18 143/86 96 Room Air Intake and Output 06/16/17 06/17/17 19:00 07:00 Intake Total 800 ml Balance 800 ml Intake Oral 600 ml IV Total 200 ml # Voids 2 Laboratory Tests 06/16/17 04:50: White Blood Count 4.9, Red Blood Count 5.24, Hemoglobin 9.7L, Hematocrit 33.7L, Mean Corpuscular Volume 64L, Mean Corpuscular Hemoglobin 18.5L, Mean Corpuscular Hemoglobin Concent 28.8L, Red Cell Distribution Width 19.5H, Platelet Count 276, Mean Platelet Volume 7.9, Neutrophils (%) (Auto) 57.8, Lymphocytes (%) (Auto) 19.6L, Monocytes (%) (Auto) 12.1H, Eosinophils (%) (Auto ) 9.6H, Basophils (%) (Auto) 1.0, Sodium Level 139, Potassium Level 3.6, Chloride Level 98, Carbon Dioxide Level 28, Anion Gap 13, Blood Urea Nitrogen 6L , Creatinine 0.9, Estimat Glomerular Filtration Rate , Glucose Level 125H, Calcium Level 9.7 Height (Feet): 5 Height (Inches): 5.00 Weight (Pounds): 219 General Appearance: no apparent distress EENT: PERRL/EOMI Neck: non-tender Cardiovascular: normal rate Respiratory/Chest: chest wall non-tender Extremities: normal inspection, no calf tenderness Edema: mild edema Neurologic: normal mood/affect Skin: normal pigmentation, warm/dry Houston Fountain Jun 16, 2017 17:11
--- NOTE | 2017-06-16 18:01 | Infectious Diseases Prog Note ---
Assessment/Plan Problems: (1) UTI (urinary tract infection) Assessment & Plan: urine culture showed ESBL producing bacteria but very small colonies most likely contaminant , no need to treat, will stop ceftriaxon empirically (2) Generalized weakness Assessment & Plan: could be due to UTI , rule out other etiologies, needs screening for hypothyroidism, (3) Hypertension Assessment & Plan: continue meds, monitor blood pressure (4) Lightheadedness Assessment & Plan: rule out CVA, recommend neurology eval and follow up Subjective Constitutional: Reports: no symptoms HEENT: Reports: no symptoms Respiratory: Reports: no symptoms Breasts: Reports: no symptoms Cardiovascular: Reports: no symptoms Gastrointestinal/Abdominal: Reports: no symptoms Genitourinary: Reports: no symptoms Neurologic: Reports: no symptoms Psychiatric: Reports: no symptoms Skin: Reports: no symptoms Endocrine: Reports: no symptoms Hematologic: Reports: no symptoms Musculoskeletal: Reports: no symptoms Allergies: Coded Allergies: No Known Allergies (Unverified , 06/20/14) Objective Vital Signs Last 24 Hour Vital Signs Date Time Temp Pulse Resp B/P (MAP) Pulse Ox O2 Delivery O2 Flow Rate FiO2 06/16/17 16:00 97.7 96 20 148/86 96 Room Air 06/16/17 12:00 97.6 92 20 147/94 96 Room Air 06/16/17 09:08 98.6 83 13 140/93 100 Nasal Cannula 3.0 06/16/17 08:57 83 15 140/87 100 Nasal Cannula 3.0 06/16/17 08:52 86 23 125/85 100 Nasal Cannula 3.0 06/16/17 08:48 88 18 99 06/16/17 08:47 98.4 86 20 123/84 95 Simple Mask 6.0 06/16/17 08:47 88 16 97 06/16/17 04:00 97.7 83 16 137/91 94 Room Air 06/16/17 00:00 97.1 86 16 148/91 95 Room Air 06/15/17 20:00 97.3 92 18 143/86 96 Room Air Height (Feet): 5 Height (Inches): 5.00 Weight (Pounds): 219 General Appearance: WD/WN, no acute distress HEENT: normocephalic, atraumatic, anicteric, mucous membranes moist, PERRL, EOMI, pharynx normal, supple, no JVD Respiratory/Chest: chest wall non-tender, lungs clear, normal breath sounds, no respiratory distress, no accessory muscle use Cardiovascular: normal peripheral pulses, normal rate, regular rhythm, no gallop/murmur, no JVD Abdomen: normal bowel sounds, soft, non tender, no organomegaly, non distended , no mass, no scars Extremities: no cyanosis, no clubbing Skin: no rash, no lesions, no ulcers Neurologic/Psychiatric: alert, oriented x 3 Microbiology Date/Time Source Procedure Growth Status 06/14/17 05:30 Urine,Clean Catch Urine Culture - Final Klebsiella Pneumoniae Esbl Mixed Gram Positive Organism Complete Laboratory Tests Test 06/16/17 04:50 White Blood Count 4.9 K/UL (4.8-10.8) Red Blood Count 5.24 M/UL (4.70-6.10) Hemoglobin 9.7 G/DL (14.2-18.0) L Hematocrit 33.7 % (42.0-52.0) L Mean Corpuscular Volume 64 FL (80-99) L Mean Corpuscular Hemoglobin 18.5 PG (27.0-31.0) L Mean Corpuscular Hemoglobin Concent 28.8 G/DL (32.0-36.0) L Red Cell Distribution Width 19.5 % (11.6-14.8) H Platelet Count 276 K/UL (150-450) Mean Platelet Volume 7.9 FL (6.5-10.1) Neutrophils (%) (Auto) 57.8 % (45.0-75.0) Lymphocytes (%) (Auto) 19.6 % (20.0-45.0) L Monocytes (%) (Auto) 12.1 % (1.0-10.0) H Eosinophils (%) (Auto) 9.6 % (0.0-3.0) H Basophils (%) (Auto) 1.0 % (0.0-2.0) Sodium Level 139 mEQ/L (135-145) Potassium Level 3.6 mEQ/L (3.4-4.9) Chloride Level 98 mEQ/L (98-107) Carbon Dioxide Level 28 mEQ/L (20-30) Anion Gap 13 (5-15) Blood Urea Nitrogen 6 mg/dL (7-23) L Creatinine 0.9 mg/dL (0.7-1.2) Estimat Glomerular Filtration Rate mL/min (>60) Glucose Level 125 mg/dL (74-106) H Calcium Level 9.7 mg/dL (8.6-10.2) Boris Mata M.D. Jun 16, 2017 18:01
--- NOTE | 2017-06-16 18:45 | Cardiology Report ---
APPROVED REPORT EKG Measurement Heart [id number] Sinus rhythm with premature supraventricular complexes Otherwise normal ECG
[2017-06-16] MEDS ORDERED: Iron Sucrose 100 MG in NS 55 ML IV SCH (21:00)
--- NOTE | 2017-06-16 22:00 | Procedure Note ---
DATE OF PROCEDURE: 06/16/2017 SURGEON: Darin Watts M.D. PROCEDURE: Upper endoscopy with biopsy and colonoscopy with biopsy. ANESTHESIOLOGIST: Jhonatan Johns M.D. INSTRUMENT: Olympus adult flexible upper endoscope and colonoscope. INDICATION: Abdominal pain. REASON FOR PROCEDURE: The procedure, risks, benefits, and possible consequences, including hemorrhage, aspiration, perforation and infection, and alternative treatments, were explained to the patient/legal guardian by Dr. Darin Watts and the patient/legal guardian understood and accepted these risks. DESCRIPTION OF PROCEDURE: After informed consent was obtained and the patient was adequately sedated, Olympus upper endoscope was advanced from mouth into the second portion of the duodenum and retroflexion was performed in the stomach. The patient had evidence of hiatal hernia, small. No obvious evidence of esophagitis. In the stomach, there was diffuse gastritis. Random biopsy from antrum was obtained to rule out H. pylori infection. Otherwise, the rest of the upper endoscopic examination grossly within normal limits. At this time, the upper endoscope was retrieved and the patient was turned over for colonoscopy. First, a rectal exam was performed, which was normal except for internal hemorrhoids and weak anal tone. Then, the scope was advanced from the rectum into the cecum, documented by the appendiceal orifice, ileocecal valve, and right upper quadrant palpation. Quality of prep was fair. The patient had normal colonoscopy examination. No obvious mass was seen. The patient had multiple hyperplastic-looking polyps in the rectosigmoid area, 3 or 4 of them were biopsied in this examination. Retroflexion of rectum showed internal hemorrhoids. SUMMARY OF FINDINGS: 1. Gastritis, status post biopsy. 2. Small hiatal hernia. 3. Multiple hyperplastic-looking polyps in the rectosigmoid area, status post biopsy. 4. Internal hemorrhoids. RECOMMENDATIONS: Follow up biopsy results and treat accordingly. I want to thank, Dr. Bry Santiago, for this kind referral. Darin Watts M.D. DR: MARTINE JOB#: [id number] CC: Bry Santiago D.O.
--- NOTE | 2017-06-16 22:57 | Pulmonology Progress Note ---
Assessment/Plan Problems: (1) Hypertension (2) Diabetes (3) HTN (hypertension) (4) Lightheadedness Assessment/Plan improving pt/ot toelrating diet sliding scale dc planning Subjective ROS Limited/Unobtainable: No Constitutional: Reports: no symptoms HEENT: Repors: no symptoms Allergies: Coded Allergies: No Known Allergies (Unverified , 06/20/14) Objective Last 24 Hour Vital Signs Date Time Temp Pulse Resp B/P (MAP) Pulse Ox O2 Delivery O2 Flow Rate FiO2 06/16/17 16:00 97.7 96 20 148/86 96 Room Air 06/16/17 12:00 97.6 92 20 147/94 96 Room Air 06/16/17 09:08 98.6 83 13 140/93 100 Nasal Cannula 3.0 06/16/17 08:57 83 15 140/87 100 Nasal Cannula 3.0 06/16/17 08:52 86 23 125/85 100 Nasal Cannula 3.0 06/16/17 08:48 88 18 99 06/16/17 08:47 98.4 86 20 123/84 95 Simple Mask 6.0 06/16/17 08:47 88 16 97 06/16/17 04:00 97.7 83 16 137/91 94 Room Air 06/16/17 00:00 97.1 86 16 148/91 95 Room Air Intake and Output 06/16/17 06/17/17 19:00 07:00 Intake Total 800 ml Balance 800 ml Intake Oral 600 ml IV Total 200 ml # Voids 2 General Appearance: WD/WN, no acute distress HEENT: normocephalic Respiratory/Chest: chest wall non-tender, lungs clear Cardiovascular: normal peripheral pulses, normal rate, regular rhythm Abdomen: normal bowel sounds, soft, non tender Genitourinary: normal external genitalia Extremities: no cyanosis Neurologic/Psychiatric: paperhanger 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 Microbiology Date/Time Source Procedure Growth Status 06/14/17 05:30 Urine,Clean Catch Urine Culture - Final Klebsiella Pneumoniae Esbl Mixed Gram Positive Organism Complete Laboratory Tests 06/16/17 04:50: White Blood Count 4.9, Red Blood Count 5.24, Hemoglobin 9.7L, Hematocrit 33.7L, Mean Corpuscular Volume 64L, Mean Corpuscular Hemoglobin 18.5L, Mean Corpuscular Hemoglobin Concent 28.8L, Red Cell Distribution Width 19.5H, Platelet Count 276, Mean Platelet Volume 7.9, Neutrophils (%) (Auto) 57.8, Lymphocytes (%) (Auto) 19.6L, Monocytes (%) (Auto) 12.1H, Eosinophils (%) (Auto ) 9.6H, Basophils (%) (Auto) 1.0, Sodium Level 139, Potassium Level 3.6, Chloride Level 98, Carbon Dioxide Level 28, Anion Gap 13, Blood Urea Nitrogen 6L , Creatinine 0.9, Estimat Glomerular Filtration Rate , Glucose Level 125H, Calcium Level 9.7 FATOUMATA BUCHANAN Jun 16, 2017 22:57
--- NOTE | 2017-06-17 03:00 | Consultation ---
DATE OF CONSULTATION: 06/14/2017 PSYCHOTHERAPY CONSULTATION PROGRESS NOTE CONSULTING PHYSICIAN: Amie Cooper M.D. TREATING ATTENDING PHYSICIAN: Bry Santiago D.O. HISTORY OF PRESENT ILLNESS: This patient is a 76-year-old male patient. The patient lives at home. The patient was brought into the hospital for weakness and flu-like symptoms. He has history of diabetes and hypertension, was referred for psychotherapeutic services. The patient is slightly depressed, helpless, and weak. This clinician assessed this patient. The patient denies suicidal and homicidal thoughts of ideation. Denies auditory or visual hallucinations. He states that he felt weak, however, has been feeling down due to his flu-like symptoms. PAST MEDICAL HISTORY: Includes history of hypertension, anemia, and diabetes. ALLERGIES: The patient has no known drug allergies. SUBSTANCE ABUSE HISTORY: There is no indication of alcohol use, illicit substance use, or smoking cigarette. PSYCHIATRIC HISTORY: The patient denies history of mental illness. SOCIAL HISTORY: The patient is a 76-year-old male patient, who lives at home independently. Financially sustained through Medicare and tidy. MENTAL STATUS EXAMINATION: The patient is alert and oriented x2, person and place. Mood is dysphoric. Affect is blunted. Thought process slightly disorganized. The patient has poor attention and concentration. Poor insight, judgment, and impulse control. DIAGNOSES: AXIS I Rule out major depressive disorder, single episode, moderate. AXIS II Deferred. AXIS III Per History and Physical. PLAN: This clinician assessed this patient. Provided the patient with supportive psychotherapy, reality orientation, and assessed the patient's mental status. Continue with medication management and behavioral management. This clinician has reviewed the patient's chart and discussed the treatment with nursing staff. Amie Cooper PsyD. : Zaheer JOB#: [id number] CC:
[2017-06-17] MEDS ORDERED: FERROUS SULFAT325 MG ORAL (09:07)
--- NOTE | 2017-06-17 09:08 | Discharge Summary ---
Discharge Summary Hospital Course Date of Admission Jun 13, 2017 at 13:40 Date of Discharge Jun 16, 2017 at 16:27 Admitting Diagnosis GENERALIZED WEAKNESS HPI Nik Mcbride is a 76 year old male who was admitted on Jun 13, 2017 at 13:40 for Generalized Weakness Hospital Course dc summary #[id number] Discharge Medications New Medications: Ferrous Sulfate* (Ferrous Sulfate*) 325 Mg Tablet 325 MG ORAL DAILY, #30 TAB 0 Refills Continued Medications: Amlodipine Besylate (Norvasc) 10 Mg Tablet 10 MG ORAL DAILY, TAB Aspirin* (Aspir 81*) 81 Mg Tablet.dr 81 MG ORAL DAILY, TAB Doxazosin Mesylate (Doxazosin Mesylate) 2 Mg Tablet 4 MG ORAL DAILY, TAB Furosemide (Furosemide) 40 Mg/5 Ml Solution 20 MG ORAL DAILY, ML Hum Insulin Nph/Reg Insulin Hm (Humulin 70-30 Vial) 100 Unit/1 Ml Vial 15 SUBQ BID, VIAL Hydrochlorothiazide* (Hydrochlorothiazide*) 25 Mg Tablet 25 MG ORAL DAILY, TAB Losartan Potassium (Losartan Potassium) 100 Mg Tablet 100 MG ORAL DAILY, TAB Meloxicam* (Meloxicam*) 7.5 Mg Tablet 7.5 MG PO BID, TAB Metformin Hcl* (Metformin Hcl*) 850 Mg Tablet 850 MG ORAL BID, TAB Pantoprazole* (Protonix*) 40 Mg Tablet.dr 40 MG ORAL DAILY, TAB Discharge Condition Upon Discharge: stable Discharge Disposition Patient was discharged to home with home health services Discharge Diagnoses: Wilfredo (Hollis)Gloria NP Jun 17, 2017 09:08
--- NOTE | 2017-06-17 09:35 | Diagnostic Imaging Report ---
APPROVED REPORT CPT Code: 10268 Present Symptoms Shortness of breath BILATERAL: Imaging reveals a patent deep venous system bilaterally. There is no evidence of thrombus within the femoral, popliteal or tibial segments. The greater saphenous veins are also within normal limits. Doppler indicates normal spontaneous flow within these segments.
--- NOTE | 2017-06-18 12:40 | Discharge Summary 2 SIG ---
DATE OF ADMISSION: 06/13/2017 DATE OF DISCHARGE: 06/16/2017 Reason For Admission: 76-year-old male with past medical history significant of diabetes and hypertension, presented with generalized weakness and lightheadedness for four to five days. He reported being lightheaded with walking, but symptoms were still present even when he was lying down. He denied sensation of room spinning. He reported fall three days ago and pain in the left elbow. No loss of consciousness. No blackouts. No headache. No neck pain. No chest pain. No shortness of breath. No nausea. No vomiting. No diarrhea. Workup in the emergency room revealed tachycardia -116. Blood pressure was stable. Hemoglobin and hematocrit with evidence of acute anemia. Hemoglobin -7.5 and hematocrit- 26.8. No leukocytosis. MCV -62. Sodium- 132, potassium -3.5, chloride -93, BUN -14, and creatinine -1.3. Troponin was negative. Chest x-ray was negative. EKG revealed normal sinus rhythm. No acute changes. Urinalysis with evidence of pyuria, but bacteria only seen occasionally. The patient was admitted for blood transfusion and further workup. ADMITTING DIAGNOSES: 1. Acute microcytic anemia requiring blood transfusion. 2. Iron-deficiency anemia. 3. Rule out GI bleeding, rule out malignancy. 4. Vertigo (secondary to anemia). 5. Status post mechanical fall. 6. Left elbow pain, rule out fracture. 7. Hypertension. 8. Diabetes. 9. Pyuria, possible UTI. Hospital Stay: The patient was admitted. GI consult, Hematology, and ID consult were requested. The patient had undergone blood transfusion. Anemia workup was consistent with anemia of iron deficiency. The patient was noted to have elevated CEA. The patient had subsequently undergone upper endoscopy and colonoscopy on 06/16/2017, which revealed gastritis, small hiatal hernia, multiple polyps in rectosigmoid area, status post biopsy, and internal hemorrhoids. Hemoglobin and hematocrit remained stable after blood transfusion. The patient required one unit of packed red blood cells only. 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 Urine culture revealed small colony 10,000 to 20,000 of Klebsiella pneumoniae, ESBL, likely contamination as per Infectious Disease doctor. Antibiotics were discontinued. The patient had undergone x-ray of the left elbow to rule out fracture, and it revealed no evidence of acute bony trauma. Pain management provided. Fall precautions were maintained. Venous duplex of bilateral lower extremity was negative. Of note, the patient also received iron IV x1 while in the hospital. Blood sugar was managed with sliding scale of insulin. [id number], at goal. Blood pressure was stable. He was not on any antihypertensive medication. The patient was working with physical and occupational therapists. Bowel regimen was instituted. The patient was cleared for discharge by GI. GI recommended followup with a biopsy and treat it accordingly. CT of the abdomen and pelvis was done to rule out any malignancy, and revealed mild gastric antral wall thickening, probably artifact, but it could relate to his history of gastritis, somewhat atrophic liver with nodular surface contour, suspicious for cirrhosis. No evidence of suspicious mass or lesion. DISCHARGE DIAGNOSES: 1. Acute microcytic anemia requiring blood transfusion. 2. Iron-deficiency anemia. 3. Elevated CEA. 4. Status post EGD and colonoscopy. 5. Gastritis. 6. Multiple polyps in rectosigmoid area, status post biopsy. 7. Internal hemorrhoids. 8. Status post mechanical fall. 9. Vertigo (due to anemia), resolved. 10. Left elbow pain, rule out fracture. 11. Hypertension. 12. Diabetes. DISCHARGE MEDICATIONS: See medication reconciliation list. Discharge Instructions: The patient was discharged home with home health services. Follow up with the primary medical doctor. Bry Santiago D.O. Gloria Villalobos ([facility]) N.PParish DR: IRMA JOB#: [id number] CC: DARRYL
== END 2017-06-16 16:27 | disposition home health service (06) | DRG 663 ==
LOC: EDBD 12:30 → EMR 12:50 → 4W 13:40 → EDBEDREQ 14:13
PROC: 30233N1 Transfusion of Nonautologous Red Blood Cells into Peripheral Vein, Percutaneous Approach (ICD-10-PCS; principal; 2017-06-14)
PROC: 0DBN8ZX Excision of Sigmoid Colon, Via Natural or Artificial Opening Endoscopic, Diagnostic (ICD-10-PCS; 2017-06-16)
PROC: 0DB78ZX Excision of Stomach, Pylorus, Via Natural or Artificial Opening Endoscopic, Diagnostic (ICD-10-PCS; 2017-06-16 08:11)
DX: D50.9 Iron deficiency anemia, unspecified (principal); K72.90 Hepatic failure, unspecified without coma; E11.9 Type 2 diabetes mellitus without complications; I10 Essential (primary) hypertension; D64.9 Anemia, unspecified; Z91.81 History of falling; K29.70 Gastritis, unspecified, without bleeding; R97.0 Elevated carcinoembryonic antigen [CEA]; K63.5 Polyp of colon; K64.8 Other hemorrhoids; R42 Dizziness and giddiness; M25.522 Pain in left elbow; K44.9 Diaphragmatic hernia without obstruction or gangrene; Z79.4 Long term (current) use of insulin; Z86.73 Personal history of transient ischemic attack (TIA), and cerebral infarction without residual deficits; N28.9 Disorder of kidney and ureter, unspecified
CPT/HCPCS: 36415; 71010; 74177; 76775; 80048; 80053; 81001; 82248; 82378; 82550; 82607; 82728; 82746; 82962; 83036; 83540; 83550; 83615; 84133; 84300; 84439; 84443; 84484; 84550; 85007; 85025; 85044; 85610; 85651; 85730; 86850; 86900; 86901; 86920; 87086; 87181; 89050; 93005; 93970; 94003; 94150; 97803; 99285; J1815; J2250; J3490

== ENCOUNTER 2017-09-21 12:31 | Inpatient (IN) | payer MEDICAID, MEDICARE ==
[~2017-09-21] VITALS: Ht 172.7 cm; Wt 97.5 kg
[~2017-09-21 12:31] MED LIST changes: +DOXAZOSIN MESYLA2 MG ORAL; +FERROUS SULFAT325 MG ORAL; +FUROSEMIDE40 MG/5 ML ORAL; +HYDROCHLOROTHIA25 MG ORAL; +LOSARTAN POTAS100 MG ORAL; +NORVASC10 MG ORAL
[2017-09-21 12:42] VITALS: BP 130/77
[2017-09-21 12:51] LABS: MEAN CORPUSCULAR HEMOGLOBIN 16.6 PG (27.0-31.0); MEAN CORPUSCULAR HGB CONC 27.1 G/DL (32.0-36.0); MEAN CORPUSCULAR VOLUME 61 FL (80-99); MEAN PLATELET VOLUME 5.8 FL (6.5-10.1); PLATELET COUNT 258 K/UL (150-450); RED BLOOD COUNT 3.76 M/UL (4.70-6.10); RED CELL DISTRIBUTION WIDTH 16.6 % (11.6-14.8); WHITE BLOOD COUNT 5.6 K/UL (4.8-10.8)
[2017-09-21 12:53] LABS: INR 1.1 (0.9-1.1); PROTHROMBIN TIME 11.1 SEC (9.30-11.50)
[2017-09-21 12:55] LABS: ANION GAP 10 mmol/L (5-15); CALCIUM 9.7 MG/DL (8.5-10.1); CARBON DIOXIDE 30 MMOL/L (21-32); CHLORIDE 91 MMOL/L (98-107); CREATININE 1.5 MG/DL (0.55-1.30); POTASSIUM 3.1 MMOL/L (3.5-5.1); SODIUM 131 MMOL/L (136-145)
[2017-09-21 13:09] LABS: ANISOCYTOSIS 1+; BAND NEUTROPHILS % (MANUAL) 0 % (0-8); BASOPHILS % (MANUAL) 0 % (0-2); EOSINOPHILS % (MANUAL) 2 % (0-3); LYMPHOCYTES % (MANUAL) 14 % (20-45); MICROCYTES 2+; NEUTROPHILS % (MANUAL) 77 % (45-75); PLATELET ESTIMATE ADEQUATE; PLATELET MORPHOLOGY NORMAL; TOTAL CELLS COUNTED 100
[2017-09-21 13:12] LABS: HYPOCHROMASIA 2+; TEAR DROP CELLS OCCASIONAL
[2017-09-21 13:13] LABS: OVALOCYTES OCCASIONAL; SCHISTOCYTES OCCASIONAL
[2017-09-21 13:24] LABS: ALANINE AMINOTRANSFERASE 38 U/L (12-78); ALBUMIN/GLOBULIN RATIO 0.8 (1.0-2.7); ASPARTATE AMINO TRANSFERASE 34 U/L (15-37); CKMB 4.9 NG/ML (0.0-3.6); MAGNESIUM 1.5 MG/DL (1.8-2.4); PHOSPHORUS 3.7 MG/DL (2.5-4.9); TOTAL PROTEIN 8.4 G/DL (6.4-8.2)
[2017-09-21 13:25] LABS: APPEARANCE,URINE CLEAR; KETONES,URINE NEGATIVE (NEGATIVE); LEUKOCYTE ESTERASE ,URINE NEGATIVE (NEGATIVE); NITRITE,URINE NEGATIVE (NEGATIVE); PH,URINE 7 (4.5-8.0); PROTEIN,URINE NEGATIVE (NEGATIVE); UROBILINOGEN,URINE NORMAL MG/DL (0.0-1.0)
[2017-09-21 13:27] VITALS: BP 109/61
[2017-09-21] MEDS ORDERED: FUROSEMIDE40 MG ORAL (13:37)
[2017-09-21] MEDS ORDERED: ZYRTEC10 MG ORAL (13:37)
[2017-09-21] MEDS ORDERED: METFORMIN HCL1000 M1 ORAL (13:37)
[2017-09-21] MEDS ORDERED: PROVENTIL HFA6.7 G1 IH (13:40)
[2017-09-21] MEDS ORDERED: HUMULIN 70100 UNIT/2 SUBQ (13:47)
[2017-09-21 13:58] LABS: REFLEX LACTIC ACID YES OR NO YES
[2017-09-21 15:23] VITALS: BP 117/57
[2017-09-21 18:32] LABS: IRON 16 ug/dL (50-175); TOTAL IRON BINDING CAPACITY 544 ug/dL (250-450)
[2017-09-21 18:48] LABS: FERRITIN 5 NG/ML (8-388)
[2017-09-21 20:20] VITALS: BP 108/63
[2017-09-21] MEDS: Iron Sucrose 100 MG in NS 55 ML IV SCH (21:51)
--- NOTE | 2017-09-22 04:45 | Consultation ---
DATE OF CONSULTATION: 09/21/2017 HEMATOLOGY/ONCOLOGY CONSULTATION CONSULTING PHYSICIAN: Houston Fountain M.D. REQUESTING PHYSICIAN: Aracelis Ervin M.D. REASON FOR CONSULTATION: Evaluation of severe iron deficiency anemia. HISTORY OF PRESENT ILLNESS: Dear Dr. Ervin: The patient is a pleasant 76-year-old male with past medical history, which is significant for anemia of iron deficiency, generalized weakness in the past, diabetes mellitus, and lightheadedness over the past several days. No sensation of room spinning. He reportedly had a fall on a prior admission and in the past, he has received iron. An EGD and colonoscopy completed before were several months ago, which was negative. Hematology Service consulted now given the patient remains anemic. Hemoglobin less than 7. PAST MEDICAL HISTORY: Hypertension, atrial fibrillation, diabetes mellitus, and anemia. PAST SURGICAL HISTORY: None noted. ALLERGIES: No known drug allergies. FAMILY HISTORY: Noncontributory. REVIEW OF SYSTEMS: Negative review of systems except as noted in the HPI. PHYSICAL EXAMINATION: VITAL SIGNS: Reviewed. GENERAL: No distress. PULMONARY: Decreased breath sounds. CARDIOVASCULAR: Regular rate. No S3 or S4. ABDOMEN: Soft, nontender, and nondistended. EXTREMITIES: A 1+ edema. LABORATORY AND DIAGNOSTIC DATA: WBC 6, hemoglobin 6.2, hematocrit 23, and platelet count 258,000. INR of 1.1. Chemistry reviewed. BUN 26 and creatinine 1.5. ASSESSMENT AND RECOMMENDATIONS: 1. Anemia secondary to iron deficiency. Begin the patient on IV iron. Evaluate the ferritin and TIBC to prove the patient has iron deficiency. 2. Lactic acidosis likely secondary to underlying sepsis. Continue to closely monitor. 3. Anemia with macrocytosis requiring transfusions from before. 4. Left elbow pain, currently improved. 5. Hypertension. Currently, blood pressures are within normal limits. 6. Vertigo. The patient with history of anemia. 7. Pyuria with history of urinary tract infection to be seen by Infectious Diseases service. 8. Elevated CEA. We will order another CEA. I appreciate consultation. Houston Fountain M.D. DR: Tiffany JOB#: [id number] CC:
--- NOTE | 2017-09-22 06:15 | History and Physical Report ---
DATE OF ADMISSION: 09/21/[address] Bry Santiago. This is Dr. Bry Santiago's patient. HISTORY OF PRESENT ILLNESS: The patient comes in with generalized weakness and is admitted for severe anemia, for potential transfusion. Apparently, the patient had previous colonoscopy. The patient also has low potassium and azotemia. The patient has been feeling very weak. Denies nausea, vomiting, diarrhea, fever, chills, or shortness of breath. PAST MEDICAL HISTORY: CAD, history of atrial fibrillation, history of UTI, history of hypertension, diabetes, renal insufficiency, hypertension, history of anemia, , and hyperlipidemia. PAST SURGICAL HISTORY: None known. MEDICATIONS: He is on aspirin, doxazosin, furosemide, insulin, metformin, and simvastatin. ALLERGIES: No known allergies. SOCIAL HISTORY: Denies history of smoking, alcohol, or illicit drugs. FAMILY HISTORY: Does have history of diabetes and hypertension. REVIEW OF SYSTEMS: HEENT: Denies headaches. RESPIRATORY: Denies shortness of breath. Denies cough. CARDIOVASCULAR: No chest pain. GASTROINTESTINAL: Denies nausea, vomiting, or diarrhea. EXTREMITIES: Denies pain. CENTRAL NERVOUS SYSTEM: No change in vision or speech pattern. Feels very weak. PHYSICAL EXAMINATION: VITAL SIGNS: Temperature is 98.8 degrees, pulse is 96, and blood pressure 117/57. HEENT: PERRLA. NECK: Supple. No lymphadenopathy. CHEST: Clear to auscultation. GASTROINTESTINAL: Soft, nontender, and nondistended. No organomegaly. EXTREMITIES: No edema. Reflexes are equal on both sides. Moves all four extremities. LABORATORY DATA: WBC of 5.6, hemoglobin 6.2, and platelets 258,000. Sodium 131, potassium 3.1, BUN of 22, creatinine 1.5, and glucose 89. ASSESSMENT AND PLAN: 1. Hypokalemia. 2. Azotemia. 3. Hyponatremia. 4. Severe anemia. I have asked Dr. Fountain, Dr. Watts, and Dr. Bradford to see the patient for the above-mentioned diagnoses and treatment. Aracelis Ervin M.D. DR: Yassine JOB#: [id number] CC:
[2017-09-22 09:12] LABS: BASOPHILS % (AUTO) 1.3 % (0.0-2.0); LYMPHOCYTES % (AUTO) 14.7 % (20.0-45.0); MEAN CORPUSCULAR HEMOGLOBIN 19.5 PG (27.0-31.0); MEAN CORPUSCULAR HGB CONC 29.3 G/DL (32.0-36.0); MEAN CORPUSCULAR VOLUME 67 FL (80-99); MEAN PLATELET VOLUME 8.6 FL (6.5-10.1); MONOCYTES % (AUTO) 15.4 % (1.0-10.0); NEUTROPHILS % (AUTO) 66.6 % (45.0-75.0); PLATELET COUNT 281 K/UL (150-450); RED BLOOD COUNT 4.41 M/UL (4.70-6.10); RED CELL DISTRIBUTION WIDTH 22.3 % (11.6-14.8); WHITE BLOOD COUNT 6.5 K/UL (4.8-10.8)
[2017-09-22 09:23] LABS: ANION GAP 6 mmol/L (5-15); CALCIUM 9.5 MG/DL (8.5-10.1); CARBON DIOXIDE 33 MMOL/L (21-32); CHLORIDE 93 MMOL/L (98-107); CREATININE 1.4 MG/DL (0.55-1.30); POTASSIUM 2.9 MMOL/L (3.5-5.1); SODIUM 132 MMOL/L (136-145)
[2017-09-22 10:01] LABS: OTHERS PATHOLOGIST COMMENT
--- NOTE | 2017-09-22 11:12 | GI Initial Consult Note ---
Daniel,Kerry Hainesoi N.P. 09/22/17 1112: History of Present Illness General Date patient seen: Sep 22, 2017 Time patient seen: 11:07 Reason for Hospitalization: Generalized Weakness Referring physician: GEOFF JOHNSON Reason for Consultation: ANEMIA Present Illness HPI The patient is a pleasant 76-year-old male with past medical history, which is significant for anemia of iron deficiency, generalized weakness in the past, diabetes mellitus, and lightheadedness over the past several days. No sensation of room spinning. He reportedly had a fall on a prior admission and in the past, he has received iron. An EGD and colonoscopy completed before were several months ago, which was negative. GI consulted for symptomatic anemia r/o GI bleed. HPI as noted above. Pt seen on floor, awake A&Ox4 NAD with no active s/sx of N/V/D. Patient c/o of acid reflux and constipation. He presents today with anemia of low Hgb 6.2 requiring blood transfusion and iron deficiency. Had recent EGD/colonoscopy performed on 06/2017 with unremarkable results. Home Meds Reported Medications Hum Insulin Nph/Reg Insulin Hm (HUMULIN 70-30 VIAL) 100 Unit/1 Ml Vial, 20 UNITS SUBQ QHS, VIAL 09/21/17 Albuterol Sulfate (PROVENTIL HFA) 6.7 Gm Hfa.aer.ad, 6.7 GM IH Y for Shortness of Breath 09/21/17 Metformin Hcl* (METFORMIN HCL*) 1,000 Mg Tablet, 1000 MG ORAL BID, TAB 09/21/17 Cetirizine Hcl* (ZYRTEC*) 10 Mg Tablet, 10 MG ORAL DAILY, #30 TAB 0 Refills 09/21/17 Furosemide* (LASIX*) 40 Mg Tablet, 40 MG ORAL DAILY, TAB 09/21/17 Amlodipine Besylate (Norvasc) 10 Mg Tablet, 10 MG ORAL DAILY, TAB 06/13/17 Losartan Potassium (LOSARTAN POTASSIUM) 100 Mg Tablet, 100 MG ORAL DAILY, TAB 06/13/17 Hydrochlorothiazide* (HYDROCHLOROTHIAZIDE*) 25 Mg Tablet, 25 MG ORAL DAILY, TAB 06/13/17 Doxazosin Mesylate (DOXAZOSIN MESYLATE) 2 Mg Tablet, 4 MG ORAL QHS, TAB 06/13/17 Aspirin* (ASPIR 81*) 81 Mg Tablet.dr, 81 MG ORAL DAILY, TAB 06/20/14 Hum Insulin Nph/Reg Insulin Hm (HUMULIN 70-30 VIAL) 100 Unit/1 Ml Vial, 30 UNITS SUBQ ACBREAKFAST, VIAL 06/20/14 Simvastatin (ZOCOR) 40 Mg Tablet, 40 MG ORAL BEDTIME, TAB 06/20/14 Discontinued Reported Medications Furosemide (FUROSEMIDE) 40 Mg/5 Ml Solution, 20 MG ORAL DAILY, ML 06/13/17 Pantoprazole* (PROTONIX*) 40 Mg Tablet.dr, 40 MG ORAL DAILY, TAB 06/20/14 D-Methorphan Hb/Prometh Hcl* (PROMETHAZINE-DM SYRUP*) 118 Ml Syrup, 5 ML ORAL Q6H Y for For Cough, ML 0 Refills 06/20/14 Benazepril Hcl* (BENAZEPRIL HCL*) 40 Mg Tablet, 40 MG ORAL DAILY, TAB 06/20/14 Metformin Hcl* (METFORMIN HCL*) 850 Mg Tablet, 850 MG ORAL BID, TAB 06/20/14 Meloxicam* (MELOXICAM*) 7.5 Mg Tablet, 7.5 MG PO BID, TAB 06/20/14 Discontinued Scripts Ferrous Sulfate* (FERROUS SULFATE*) 325 Mg Tablet, 325 MG ORAL DAILY, #30 TAB 0 Refills Prov:Wilfredo (Gloria Goldman NP 06/17/17 Digoxin* (LANOXIN*) 0.25 Mg Tab, 0.25 MG ORAL DAILY, #30 TAB Prov:Gloria Villalobos NP (Vanchtein) 06/23/14 Diltiazem HCl (Diltiazem HCl) 90 Mg Tab, 90 MG ORAL EVERY 6 HOURS, #120 TAB Prov:Gloria Villalobos NP (Vanchtein) 06/23/14 Med list reviewed/reconciled: Yes Allergies: Coded Allergies: No Known Allergies (Unverified , 06/20/14) Patient History PMH Narrative PAST MEDICAL HISTORY: Hypertension, atrial fibrillation, diabetes mellitus, and anemia. PAST SURGICAL HISTORY: None noted. Review of Systems All Other Systems: negative except mentioned in HPI Physical Exam Vital Signs Date Time Temp Pulse Resp B/P (MAP) Pulse Ox O2 Delivery O2 Flow Rate FiO2 09/21/17 12:16 98.2 110 18 92/54 98 Room Air 09/21/17 12:45 2.0 Sp02 EP Interpretation: reviewed, normal Labs Laboratory Tests Test 09/21/17 12:33 09/21/17 12:55 09/21/17 13:00 09/21/17 14:36 White Blood Count 5.6 K/UL (4.8-10.8) Red Blood Count 3.76 M/UL (4.70-6.10) L Hemoglobin 6.2 G/DL (14.2-18.0) *L Hematocrit 23.0 % (42.0-52.0) L Mean Corpuscular Volume 61 FL (80-99) L Mean Corpuscular Hemoglobin 16.6 PG (27.0-31.0) L Mean Corpuscular Hemoglobin Concent 27.1 G/DL (32.0-36.0) L Red Cell Distribution Width 16.6 % (11.6-14.8) H Platelet Count 258 K/UL (150-450) Mean Platelet Volume 5.8 FL (6.5-10.1) L Neutrophils (%) (Auto) % (45.0-75.0) Lymphocytes (%) (Auto) % (20.0-45.0) Monocytes (%) (Auto) % (1.0-10.0) Eosinophils (%) (Auto) % (0.0-3.0) Basophils (%) (Auto) % (0.0-2.0) Differential Total Cells Counted 100 Neutrophils % (Manual) 77 % (45-75) H Lymphocytes % (Manual) 14 % (20-45) L Monocytes % (Manual) 7 % (1-10) Eosinophils % (Manual) 2 % (0-3) Basophils % (Manual) 0 % (0-2) Band Neutrophils 0 % (0-8) Other Cell Type Pathologist comment Platelet Estimate Adequate Platelet Morphology Normal Hypochromasia 2+ Anisocytosis 1+ Microcytosis 2+ Tear Drop Cells Occasional Ovalocytes Occasional Schistocytes Occasional Reticulocyte Count 1.7 % (0.0-2.0) Prothrombin Time 11.1 SEC (9.30-11.50) Prothromb Time International Ratio 1.1 (0.9-1.1) Activated Partial Thromboplast Time 23 SEC (23-33) Sodium Level 131 MMOL/L (136-145) L Potassium Level 3.1 MMOL/L (3.5-5.1) L Chloride Level 91 MMOL/L (98-107) L Carbon Dioxide Level 30 MMOL/L (21-32) Anion Gap 10 mmol/L (5-15) Blood Urea Nitrogen 26 mg/dL (7-18) H Creatinine 1.5 MG/DL (0.55-1.30) H Estimat Glomerular Filtration Rate mL/min (>60) Glucose Level 89 MG/DL (74-106) Calcium Level 9.7 MG/DL (8.5-10.1) Phosphorus Level 3.7 MG/DL (2.5-4.9) Magnesium Level 1.5 MG/DL (1.8-2.4) L Total Bilirubin 1.0 MG/DL (0.2-1.0) Aspartate Amino Transf (AST/SGOT) 34 U/L (15-37) Alanine Aminotransferase (ALT/SGPT) 38 U/L (12-78) Alkaline Phosphatase 52 U/L (46-116) Total Creatine Kinase 199 U/L (26-308) Creatine Kinase MB 4.9 NG/ML (0.0-3.6) H Creatine Kinase MB Relative Index 2.4 Troponin I 0.005 ng/mL (0.000-0.056) Pro-B-Type Natriuretic Peptide 169 pg/mL (0-125) H Total Protein 8.4 G/DL (6.4-8.2) H Albumin 3.7 G/DL (3.4-5.0) Globulin 4.7 g/dL Albumin/Globulin Ratio 0.8 (1.0-2.7) L Urine Color Pale yellow Urine Appearance Clear Urine pH 7 (4.5-8.0) Urine Specific [place] 1.005 (1.005-1.035) Urine Protein Negative (NEGATIVE) Urine Glucose (UA) Negative (NEGATIVE) Urine Ketones Negative (NEGATIVE) Urine Occult Blood Negative (NEGATIVE) Urine Nitrite Negative (NEGATIVE) Urine Bilirubin Negative (NEGATIVE) Urine Urobilinogen Normal MG/DL (0.0-1.0) Urine Leukocyte Esterase Negative (NEGATIVE) Lactic Acid Level 4.00 mmol/L (0.66-2.22) H 3.10 mmol/L (0.66-2.22) H Test 09/21/17 17:50 09/22/17 07:40 Iron Level 16 ug/dL (50-175) L Total Iron Binding Capacity 544 ug/dL (250-450) H Percent Iron Saturation 3 % (15-50) L Unsaturated Iron Binding 528 ug/dL (112-346) H Ferritin 5 NG/ML (8-388) L White Blood Count 6.5 K/UL (4.8-10.8) Red Blood Count 4.41 M/UL (4.70-6.10) L Hemoglobin 8.6 G/DL (14.2-18.0) #L Hematocrit 29.4 % (42.0-52.0) L Mean Corpuscular Volume 67 FL (80-99) #L Mean Corpuscular Hemoglobin 19.5 PG (27.0-31.0) L Mean Corpuscular Hemoglobin Concent 29.3 G/DL (32.0-36.0) L Red Cell Distribution Width 22.3 % (11.6-14.8) H Platelet Count 281 K/UL (150-450) Mean Platelet Volume 8.6 FL (6.5-10.1) Neutrophils (%) (Auto) 66.6 % (45.0-75.0) Lymphocytes (%) (Auto) 14.7 % (20.0-45.0) L Monocytes (%) (Auto) 15.4 % (1.0-10.0) H Eosinophils (%) (Auto) 2.0 % (0.0-3.0) Basophils (%) (Auto) 1.3 % (0.0-2.0) Sodium Level 132 MMOL/L (136-145) L Potassium Level 2.9 MMOL/L (3.5-5.1) L Chloride Level 93 MMOL/L (98-107) L Carbon Dioxide Level 33 MMOL/L (21-32) H Anion Gap 6 mmol/L (5-15) Blood Urea Nitrogen 24 mg/dL (7-18) H Creatinine 1.4 MG/DL (0.55-1.30) H Estimat Glomerular Filtration Rate mL/min (>60) Glucose Level 97 MG/DL (74-106) Calcium Level 9.5 MG/DL (8.5-10.1) General Appearance: well appearing, no apparent distress, alert Head: normocephalic EENT: PERRL/EOMI, normal ENT inspection Neck: supple Respiratory: normal breath sounds, no respiratory distress Cardiovascular: normal rate Gastrointestinal: normal inspection, non tender, soft, normal bowel sounds, non -distended Rectal: deferred Genitourinary: deferred Musculoskeletal: normal inspection, back normal Neurologic: normal inspection, alert, oriented x3, responsive Psychiatric: normal inspection, judgement/insight normal, memory normal Skin: normal inspection, normal color, no rash, warm/dry, palpation normal, well hydrated Lymphatic: normal inspection, no adenopathy Current Medications Current Medications Medications (Trade) Dose Ordered Sig/Eda Route PRN Reason Start Time Stop Time Status Last Admin Dose Admin Iron Sucrose 100 mg/Sodium Chloride 60 ml @ 240 mls/hr BEDTIME IV 09/21/17 21:00 09/25/17 21:14 09/21/17 21:51 GI: Plan Problems: (1) Iron deficiency (2) Anemia (3) Lightheadedness (4) Diabetes Plan Endoscopy Procedure Note Indication for Procedure: abd pain Procedures Performed: EGD, colonoscopy Operative Findings/Diagnosis: gastritis, multiple polyps ZOILA RUSSO - Jun 16, 2017 08:42 anemia work up iron deficiency >> venofer OB stool r/o GI bleed >> will consider outpatient capsule endoscopy if positive monitor H&H, prn transfusions bowel regime adv diet ppi fu labs Discussed with Dr. Russo. Thank you for this patient referral, we will follow. ZOILA RUSSO 09/23/17 0831: History of Present Illness General Reason for Hospitalization: Generalized Weakness Present Illness Home Meds Reported Medications Hum Insulin Nph/Reg Insulin Hm (HUMULIN 70-30 VIAL) 100 Unit/1 Ml Vial, 20 UNITS SUBQ QHS, VIAL 09/21/17 Albuterol Sulfate (PROVENTIL HFA) 6.7 Gm Hfa.aer.ad, 6.7 GM IH Y for Shortness of Breath 09/21/17 Metformin Hcl* (METFORMIN HCL*) 1,000 Mg Tablet, 1000 MG ORAL BID, TAB 09/21/17 Cetirizine Hcl* (ZYRTEC*) 10 Mg Tablet, 10 MG ORAL DAILY, #30 TAB 0 Refills 09/21/17 Furosemide* (LASIX*) 40 Mg Tablet, 40 MG ORAL DAILY, TAB 09/21/17 Amlodipine Besylate (Norvasc) 10 Mg Tablet, 10 MG ORAL DAILY, TAB 06/13/17 Losartan Potassium (LOSARTAN POTASSIUM) 100 Mg Tablet, 100 MG ORAL DAILY, TAB 06/13/17 Hydrochlorothiazide* (HYDROCHLOROTHIAZIDE*) 25 Mg Tablet, 25 MG ORAL DAILY, TAB 06/13/17 Doxazosin Mesylate (DOXAZOSIN MESYLATE) 2 Mg Tablet, 4 MG ORAL QHS, TAB 06/13/17 Aspirin* (ASPIR 81*) 81 Mg Tablet.dr, 81 MG ORAL DAILY, TAB 06/20/14 Hum Insulin Nph/Reg Insulin Hm (HUMULIN 70-30 VIAL) 100 Unit/1 Ml Vial, 30 UNITS SUBQ ACBREAKFAST, VIAL 06/20/14 Simvastatin (ZOCOR) 40 Mg Tablet, 40 MG ORAL BEDTIME, TAB 06/20/14 Discontinued Reported Medications Furosemide (FUROSEMIDE) 40 Mg/5 Ml Solution, 20 MG ORAL DAILY, ML 06/13/17 Pantoprazole* (PROTONIX*) 40 Mg Tablet.dr, 40 MG ORAL DAILY, TAB 06/20/14 D-Methorphan Hb/Prometh Hcl* (PROMETHAZINE-DM SYRUP*) 118 Ml Syrup, 5 ML ORAL Q6H Y for For Cough, ML 0 Refills 06/20/14 Benazepril Hcl* (BENAZEPRIL HCL*) 40 Mg Tablet, 40 MG ORAL DAILY, TAB 06/20/14 Metformin Hcl* (METFORMIN HCL*) 850 Mg Tablet, 850 MG ORAL BID, TAB 06/20/14 Meloxicam* (MELOXICAM*) 7.5 Mg Tablet, 7.5 MG PO BID, TAB 06/20/14 Discontinued Scripts Ferrous Sulfate* (FERROUS SULFATE*) 325 Mg Tablet, 325 MG ORAL DAILY, #30 TAB 0 Refills Prov:Gloria Villalobos NP (Vanchtein) 06/17/17 Digoxin* (LANOXIN*) 0.25 Mg Tab, 0.25 MG ORAL DAILY, #30 TAB Prov:Gloria Villalobos NP (Vanchtein) 06/23/14 Diltiazem HCl (Diltiazem HCl) 90 Mg Tab, 90 MG ORAL EVERY 6 HOURS, #120 TAB Prov:Wilfredo (Gloria Goldman NP 06/23/14 Allergies: Coded Allergies: No Known Allergies (Unverified , 06/20/14) GI: Plan Plan The patient was seen and examined at bedside and all new and available data was reviewed in the patients chart. I agree with the above findings, impression and plan. (Patient seen earlier today. Signature stamp does not reflect patient encounter time.). - MD [facility]ía [facility] [place] Ezequiel Morrison Sep 22, 2017 11:12 ZOILA RUSSO Sep 23, 2017 08:31
[2017-09-22] MEDS ORDERED: Miralax 17gm pkt ORAL PRN (11:15)
--- NOTE | 2017-09-22 11:22 | Diagnostic Imaging Report ---
Indication: Altered mental status Technique: Contiguous 5 mm thick transaxial imaging of the head obtained in a Siemens Sensation [address] scanner. Soft tissue and bone windows generated. Automatic Exposure Control was utilized. Total Dose length Product (DLP): 1319.[address] Dose Index Volume (CTDIvol): 70.38 mGy Comparison: none Findings: There is mild prominence of the ventricles, basal cisterns, and cerebral sulci consistent with atrophy. Mild, nonspecific, white matter hypoattenuation is noted throughout the brain consistent with chronic small vessel disease. Cystic foci noted within the thalami bilaterally and right basal ganglia consistent with old small vessel infarcts. There is no midline shift, edema, acute hemorrhage, mass effect, or abnormal extra-axial fluid collections. Bones and extra osseous soft tissues are unremarkable. Impression: No acute intracranial bleed, mass effect or edema. 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 Mild atrophy of the brain. Nonspecific white matter hypoattenuation probably due to chronic small vessel disease. The CT scanner at [facility] is accredited by the [employer] and the scans are performed using dose optimization techniques as appropriate to a performed exam including Automatic Exposure control.
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
--- NOTE | 2017-09-22 15:40 | General Progress Note ---
Assessment/Plan Assessment/Plan ASSESSMENT AND RECOMMENDATIONS: 1. Anemia secondary to severe iron deficiency. Begin the patient on IV iron. S/ p transfusion --> GI following, possible endoscopy to follow --> OB stool pending 2. Anemia with macrocytosis requiring transfusions from before. 3. Left elbow pain, currently improved. 4. Hypertension. Currently, blood pressures are within normal limits. Subjective Hematologic/Lymphatic: Reports: anemia Allergies: Coded Allergies: No Known Allergies (Unverified , 06/20/14) All Systems: reviewed and negative except above Subjective NAD Objective Last 24 Hour Vital Signs Date Time Temp Pulse Resp B/P (MAP) Pulse Ox O2 Delivery O2 Flow Rate FiO2 09/22/17 12:00 99 09/22/17 08:00 96 09/22/17 04:00 101 09/22/17 00:00 101 09/22/17 00:00 97 09/21/17 20:20 97.9 99 20 108/63 96 Room Air 09/21/17 20:00 97 09/21/17 16:00 99 Laboratory Tests 09/21/17 17:50: Iron Level 16L, Total Iron Binding Capacity 544H, Percent Iron Saturation 3L, Unsaturated Iron Binding 528H, Ferritin 5L 09/22/17 07:40: White Blood Count 6.5, Red Blood Count 4.41L, Hemoglobin 8.6#L, Hematocrit 29.4L , Mean Corpuscular Volume 67#L, Mean Corpuscular Hemoglobin 19.5L, Mean Corpuscular Hemoglobin Concent 29.3L, Red Cell Distribution Width 22.3H, Platelet Count 281, Mean Platelet Volume 8.6, Neutrophils (%) (Auto) 66.6, Lymphocytes (%) (Auto) 14.7L, Monocytes (%) (Auto) 15.4H, Eosinophils (%) (Auto ) 2.0, Basophils (%) (Auto) 1.3, Sodium Level 132L, Potassium Level 2.9L, Chloride Level 93L, Carbon Dioxide Level 33H, Anion Gap 6, Blood Urea Nitrogen 24H, Creatinine 1.4H, Estimat Glomerular Filtration Rate , Glucose Level 97, Calcium Level 9.5 Height (Feet): 5 Height (Inches): 8.00 Weight (Pounds): 215 General Appearance: no apparent distress EENT: normal ENT inspection Neck: normal alignment Cardiovascular: normal rate Extremities: non-tender [place] Sep 22, 2017 15:40
--- NOTE | 2017-09-22 15:59 | Consultation ---
Consult Note Consult Note asked to eval for renal consult - The patient is a pleasant 76-year-old male with past medical history, which is significant for anemia of iron deficiency, generalized weakness in the past, diabetes mellitus, and lightheadedness over the past several days. No sensation of room spinning. He reportedly had a fall on a prior admission and in the past, he has received iron. An EGD and colonoscopy completed before were several months ago, which was negative. GI consulted for symptomatic anemia r/o GI bleed. HPI as noted above. Pt seen on floor, awake A&Ox4 NAD with no active s/sx of N/V/D. Patient c/o of acid reflux and constipation. He presents today with anemia of low Hgb 6.2 requiring blood transfusion and iron deficiency. Had recent EGD/colonoscopy performed on 06/2017 with unremarkable results. Patient interviewed, examined, data reviewed Assessment/Plan status: Abnormal Cr 1.5 Abnormal lytes: Low Mag-Low Na- Low K was on Lasix and HCTZ Severe Anemia HTN DM on insulin Plan: DC Diuretics- Metformin- Adjust BP meds K supp. Transfuse IV Iron Monitor renal parameters and lytes Urine studies ELDA FARMER Sep 22, 2017 15:59
[2017-09-22 16:00] VITALS: BP 130/75
[2017-09-22] MEDS ORDERED: HydrALAZINE 25mg tab ORAL PRN (16:15)
[2017-09-22] MEDS ORDERED: Sodium Chloride 500ML 500 ML IV ONE (16:15)
[2017-09-22] MEDS ORDERED: Metoprolol Tartrate 12.5mg TAB ORAL ONE (16:15)
[2017-09-22] MEDS: NovoLOG Insulin Flexpen SUBQ SCH ×2 (17:26→21:47)
[2017-09-22] MEDS ORDERED: metFORMIN 500mg tab ORAL SCH (18:00)
[2017-09-22] MEDS: Docusate 100mg cap ORAL SCH (18:11)
[2017-09-22 20:00] VITALS: BP 128/78
--- NOTE | 2017-09-22 20:16 | Emergency Room Report ---
History of Present Illness General Chief Complaint: Generalized Weakness Source: Patient Present Illness HPI Patient is a 76-year-old male who presented after increased generalized weakness. Patient was reportedly having increased falling for the past 2 days. He had gradual onset of symptoms. Patient reported having prior transfusions. He reported having some history of anemia. He reported generalized weakness. Patient was having difficulty standing. Patient was brought in by EMS. He had previously been hospitalized at [facility] Allergies: Coded Allergies: No Known Allergies (Unverified , 06/20/14) Patient History Past Medical History: see triage record Reviewed Nursing Documentation: PMH: Agreed, PSxH: Agreed Nursing Documentation-PMH Hx Cardiac Problems: Yes Hx Hypertension: Yes Hx Diabetes: Yes Hx Cancer: No Hx Gastrointestinal Problems: Yes Hx Neurological Problems: Yes Hx Cerebrovascular Accident: Yes Review of Systems All Other Systems: negative except mentioned in HPI Physical Exam Vital Signs Date Time Temp Pulse Resp B/P (MAP) Pulse Ox O2 Delivery O2 Flow Rate FiO2 09/21/17 12:16 98.2 110 18 92/54 98 Room Air 09/21/17 12:45 2.0 Sp02 EP Interpretation: reviewed, normal General Appearance: normal inspection, well appearing, no apparent distress, alert, GCS 15, Chronically Ill Head: atraumatic ENT: normal ENT inspection, hearing grossly normal, normal voice Neck: normal inspection, full range of motion, supple, no bony tend Respiratory: normal inspection, lungs clear, normal breath sounds, no respiratory distress, no retraction, no wheezing Cardiovascular #1: regular rate, rhythm, no edema Gastrointestinal: normal inspection, normal bowel sounds, non tender, soft, no guarding, no hernia Genitourinary: no CVA tenderness Musculoskeletal: normal inspection, back normal, normal range of motion Neurologic: normal inspection, alert, oriented x3, responsive, patternmaker apprentice 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 Differential diagnosis included was not limited to anemia, urinary tract infection, electrolyte abnormality, hypothyroidism, myocardial infarction, myasthenia gravis, dehydration, among others. Because of complexity of patient's case laboratory testing and imaging studies were ordered. The lab testing was notable for anemia with hemoglobin 6.2. The patient was consented for blood transfusion. Dr. Aracelis Gandhi was contacted for inpatient management because PMD was on vacation. The patient is advised to follow up with primary care doctor in 1-2 days. Patient is advised to return if any worsening condition or if any changes in status that are concerning. This report is dictated with [employer] laborer pole crew software which may occasionally lead to discrepancies related to use of this software. Laboratory Tests Test 09/21/17 12:33 09/21/17 12:55 09/21/17 13:00 09/21/17 14:36 White Blood Count 5.6 K/UL (4.8-10.8) Red Blood Count 3.76 M/UL (4.70-6.10) L Hemoglobin 6.2 G/DL (14.2-18.0) *L Hematocrit 23.0 % (42.0-52.0) L Mean Corpuscular Volume 61 FL (80-99) L Mean Corpuscular Hemoglobin 16.6 PG (27.0-31.0) L Mean Corpuscular Hemoglobin Concent 27.1 G/DL (32.0-36.0) L Red Cell Distribution Width 16.6 % (11.6-14.8) H Platelet Count 258 K/UL (150-450) Mean Platelet Volume 5.8 FL (6.5-10.1) L Neutrophils (%) (Auto) % (45.0-75.0) Lymphocytes (%) (Auto) % (20.0-45.0) Monocytes (%) (Auto) % (1.0-10.0) Eosinophils (%) (Auto) % (0.0-3.0) Basophils (%) (Auto) % (0.0-2.0) Differential Total Cells Counted 100 Neutrophils % (Manual) 77 % (45-75) H Lymphocytes % (Manual) 14 % (20-45) L Monocytes % (Manual) 7 % (1-10) Eosinophils % (Manual) 2 % (0-3) Basophils % (Manual) 0 % (0-2) Band Neutrophils 0 % (0-8) Other Cell Type Pathologist comment Platelet Estimate Adequate Platelet Morphology Normal Hypochromasia 2+ Anisocytosis 1+ Microcytosis 2+ Tear Drop Cells Occasional Ovalocytes Occasional Schistocytes Occasional Reticulocyte Count 1.7 % (0.0-2.0) Prothrombin Time 11.1 SEC (9.30-11.50) Prothrombin Time INR 1.1 (0.9-1.1) PTT 23 SEC (23-33) Sodium Level 131 MMOL/L (136-145) L Potassium Level 3.1 MMOL/L (3.5-5.1) L Chloride Level 91 MMOL/L (98-107) L Carbon Dioxide Level 30 MMOL/L (21-32) Anion Gap 10 mmol/L (5-15) Blood Urea Nitrogen 26 mg/dL (7-18) H Creatinine 1.5 MG/DL (0.55-1.30) H Estimate Glomerular Filtration Rate mL/min (>60) Glucose Level 89 MG/DL (74-106) Calcium Level 9.7 MG/DL (8.5-10.1) Phosphorus Level 3.7 MG/DL (2.5-4.9) Magnesium Level 1.5 MG/DL (1.8-2.4) L Total Bilirubin 1.0 MG/DL (0.2-1.0) Aspartate Amino Transferase (AST) 34 U/L (15-37) Alanine Aminotransferase (ALT) 38 U/L (12-78) Alkaline Phosphatase 52 U/L (46-116) Total Creatine Kinase 199 U/L (26-308) Creatine Kinase MB 4.9 NG/ML (0.0-3.6) H Creatine Kinase MB Relative Index 2.4 Troponin I 0.005 ng/mL (0.000-0.056) Pro-B-Type Natriuretic Peptide 169 pg/mL (0-125) H Total Protein 8.4 G/DL (6.4-8.2) H Albumin 3.7 G/DL (3.4-5.0) Globulin 4.7 g/dL Albumin/Globulin Ratio 0.8 (1.0-2.7) L Urine Color Pale yellow Urine Appearance Clear Urine pH 7 (4.5-8.0) Urine Specific [place] 1.005 (1.005-1.035) Urine Protein Negative (NEGATIVE) Urine Glucose (UA) Negative (NEGATIVE) Urine Ketones Negative (NEGATIVE) Urine Occult Blood Negative (NEGATIVE) Urine Nitrite Negative (NEGATIVE) Urine Bilirubin Negative (NEGATIVE) Urine Urobilinogen Normal MG/DL (0.0-1.0) Urine Leukocyte Esterase Negative (NEGATIVE) Lactic Acid Level 4.00 mmol/L (0.66-2.22) H 3.10 mmol/L (0.66-2.22) H Test 09/21/17 17:50 09/22/17 07:40 Iron Level 16 ug/dL (50-175) L Total Iron Binding Capacity 544 ug/dL (250-450) H Percent Iron Saturation 3 % (15-50) L Unsaturated Iron Binding 528 ug/dL (112-346) H Ferritin 5 NG/ML (8-388) L White Blood Count 6.5 K/UL (4.8-10.8) Red Blood Count 4.41 M/UL (4.70-6.10) L Hemoglobin 8.6 G/DL (14.2-18.0) #L Hematocrit 29.4 % (42.0-52.0) L Mean Corpuscular Volume 67 FL (80-99) #L Mean Corpuscular Hemoglobin 19.5 PG (27.0-31.0) L Mean Corpuscular Hemoglobin Concent 29.3 G/DL (32.0-36.0) L Red Cell Distribution Width 22.3 % (11.6-14.8) H Platelet Count 281 K/UL (150-450) Mean Platelet Volume 8.6 FL (6.5-10.1) Neutrophils (%) (Auto) 66.6 % (45.0-75.0) Lymphocytes (%) (Auto) 14.7 % (20.0-45.0) L Monocytes (%) (Auto) 15.4 % (1.0-10.0) H Eosinophils (%) (Auto) 2.0 % (0.0-3.0) Basophils (%) (Auto) 1.3 % (0.0-2.0) Sodium Level 132 MMOL/L (136-145) L Potassium Level 2.9 MMOL/L (3.5-5.1) L Chloride Level 93 MMOL/L (98-107) L Carbon Dioxide Level 33 MMOL/L (21-32) H Anion Gap 6 mmol/L (5-15) Blood Urea Nitrogen 24 mg/dL (7-18) H Creatinine 1.4 MG/DL (0.55-1.30) H Estimate Glomerular Filtration Rate mL/min (>60) Glucose Level 97 MG/DL (74-106) Calcium Level 9.5 MG/DL (8.5-10.1) Last Vital Signs Date Time Temp Pulse Resp B/P (MAP) Pulse Ox O2 Delivery O2 Flow Rate FiO2 09/22/17 19:22 Nasal Cannula 2.0 09/22/17 17:22 88 130/75 09/22/17 16:00 98.2 09/21/17 20:20 20 96 Status: unchanged Disposition: ADMITTED INPATIENT Condition: Serious Referrals: NOT CHOSEN IPA/,REFERRING (PCP) Christiano Mcbride Sep 22, 2017 20:16
[2017-09-22] MEDS ORDERED: Doxazosin 4mg tab ORAL SCH (21:00)
[2017-09-22] MEDS ORDERED: Iron Sucrose 100 MG in NS 55 ML IVPB SCH (21:00)
[2017-09-22] MEDS ORDERED: Docusate 100mg cap ORAL SCH (21:00)
[2017-09-22] MEDS: Tamsulosin 0.4mg cap ORAL SCH (21:13)
[2017-09-22] MEDS: Iron Sucrose 100 MG in NS 55 ML IV SCH (21:13)
[2017-09-22] MEDS: Atorvastatin 20mg tab ORAL SCH (21:14)
[2017-09-22] MEDS: Metoprolol Tartrate 12.5mg TAB ORAL SCH (21:14)
--- NOTE | 2017-09-22 21:18 | General Progress Note ---
Assessment/Plan Problem List: (1) UTI (urinary tract infection) ICD Codes: N39.0 - Urinary tract infection, site not specified SNOMED: 32069930 (2) Iron deficiency ICD Codes: E61.1 - Iron deficiency SNOMED: 69849334 (3) Severe anemia ICD Codes: D64.9 - Anemia, unspecified SNOMED: 169264356 (4) Diabetes ICD Codes: E11.9 - Type 2 diabetes mellitus without complications SNOMED: 31965830 (5) Hypertension ICD Codes: I10 - Essential (primary) hypertension SNOMED: 56677960 Status: progressing Assessment/Plan anemia is improved gi work up per dr camp dm check sugars htn reviewed chart and labs Subjective ROS Limited/Unobtainable: Yes Constitutional: Reports: no symptoms Allergies: Coded Allergies: No Known Allergies (Unverified , 06/20/14) Objective Last 24 Hour Vital Signs Date Time Temp Pulse Resp B/P (MAP) Pulse Ox O2 Delivery O2 Flow Rate FiO2 09/22/17 21:14 95 128/78 09/22/17 20:00 98.0 95 20 128/78 95 95 09/22/17 19:22 Nasal Cannula 2.0 09/22/17 17:22 88 130/75 09/22/17 16:00 93 09/22/17 16:00 98.2 88 130/75 09/22/17 12:00 99 09/22/17 08:00 96 09/22/17 04:00 101 09/22/17 00:00 101 09/22/17 00:00 97 Intake and Output 09/22/17 09/23/17 19:00 07:00 Intake Total 2000 ml Balance 2000 ml Intake Oral 1500 ml IV Total 500 ml Laboratory Tests 09/22/17 07:40: White Blood Count 6.5, Red Blood Count 4.41L, Hemoglobin 8.6#L, Hematocrit 29.4L , Mean Corpuscular Volume 67#L, Mean Corpuscular Hemoglobin 19.5L, Mean Corpuscular Hemoglobin Concent 29.3L, Red Cell Distribution Width 22.3H, Platelet Count 281, Mean Platelet Volume 8.6, Neutrophils (%) (Auto) 66.6, Lymphocytes (%) (Auto) 14.7L, Monocytes (%) (Auto) 15.4H, Eosinophils (%) (Auto ) 2.0, Basophils (%) (Auto) 1.3, Sodium Level 132L, Potassium Level 2.9L, Chloride Level 93L, Carbon Dioxide Level 33H, Anion Gap 6, Blood Urea Nitrogen 24H, Creatinine 1.4H, Estimat Glomerular Filtration Rate , Glucose Level 97, Calcium Level 9.5 Height (Feet): 5 Height (Inches): 8.00 Weight (Pounds): 215 Aracelis Ervin MD Sep 22, 2017 21:18
[2017-09-23] VITALS: BP_SYST 133; BP_SYST 142; BP_DIAS 56; BP_DIAS 80
[2017-09-23 04:00] VITALS: BP 101/66
[2017-09-23] MEDS: NovoLOG Insulin Flexpen SUBQ SCH ×4 (06:30→23:05)
[2017-09-23 08:00] VITALS: BP 134/53
[2017-09-23 08:42] LABS: BASOPHILS % (AUTO) 1.2 % (0.0-2.0); EOSINOPHILS % (AUTO) 6.4 % (0.0-3.0); LYMPHOCYTES % (AUTO) 14.5 % (20.0-45.0); MEAN CORPUSCULAR HEMOGLOBIN 19.3 PG (27.0-31.0); MEAN CORPUSCULAR HGB CONC 29.1 G/DL (32.0-36.0); MEAN CORPUSCULAR VOLUME 66 FL (80-99); MEAN PLATELET VOLUME 5.7 FL (6.5-10.1); MONOCYTES % (AUTO) 13.3 % (1.0-10.0); NEUTROPHILS % (AUTO) 64.6 % (45.0-75.0); PLATELET COUNT 231 K/UL (150-450); RED BLOOD COUNT 4.47 M/UL (4.70-6.10); RED CELL DISTRIBUTION WIDTH 22.6 % (11.6-14.8); WHITE BLOOD COUNT 6.4 K/UL (4.8-10.8)
[2017-09-23] MEDS: Losartan 50mg tab ORAL SCH (08:45)
[2017-09-23] MEDS: Metoprolol Tartrate 12.5mg TAB ORAL SCH ×2 (08:45→23:00)
[2017-09-23] MEDS: Docusate 100mg cap ORAL SCH ×3 (08:46→17:26)
[2017-09-23] MEDS: Aspirin Baby 81mg ORAL SCH (08:46)
[2017-09-23] MEDS ORDERED: Furosemide 40mg tab ORAL SCH (09:00)
[2017-09-23] MEDS ORDERED: Losartan 50mg tab ORAL SCH ×2 (09:00)
[2017-09-23 09:07] LABS: ALANINE AMINOTRANSFERASE 38 U/L (12-78); ALBUMIN/GLOBULIN RATIO 0.8 (1.0-2.7); ANION GAP 4 mmol/L (5-15); ASPARTATE AMINO TRANSFERASE 33 U/L (15-37); BILIRUBIN,DIRECT 0.5 MG/DL (0.0-0.3); CALCIUM 9.4 MG/DL (8.5-10.1); CARBON DIOXIDE 33 MMOL/L (21-32); CHLORIDE 97 MMOL/L (98-107); CHOLESTEROL 119 MG/DL (< 200); CHOLESTEROL/HDL RATIO 2.6 (3.3-4.4); CREATININE 1.2 MG/DL (0.55-1.30); CRP QUANT < 0.4 mg/dL (0.00-0.90); MAGNESIUM 1.6 MG/DL (1.8-2.4); PHOSPHORUS 3.5 MG/DL (2.5-4.9); POTASSIUM 3.6 MMOL/L (3.5-5.1); SODIUM 134 MMOL/L (136-145); THYROID STIMULATING HORMONE 0.866 uiU/mL (0.358-3.740); TOTAL PROTEIN 8.3 G/DL (6.4-8.2); URIC ACID 6.8 MG/DL (2.6-7.2)
[2017-09-23 09:34] LABS: HEMOGLOBIN A1C 5.2 % (4.3-6.0)
--- NOTE | 2017-09-23 11:17 | Nephrology Progress Note ---
Assessment/Plan Problem List: (1) Diabetes (2) Hypertension (3) Anemia (4) Renal insufficiency Assessment Abnormal Cr 1.5 now wnl Abnormal lytes: Low Mag-Low Na- correcting Low K was on Lasix and HCTZ Severe Anemia on Iron HTN stable DM on insulin Plan Plan: off Diuretics- Metformin- Adjust BP meds K supp. Transfuse IV Iron Monitor renal parameters and lytes Urine studies per orders Subjective ROS Limited/Unobtainable: No Objective Objective Last 24 Hour Vital Signs Date Time Temp Pulse Resp B/P (MAP) Pulse Ox O2 Delivery O2 Flow Rate FiO2 09/23/17 08:45 134/53 09/23/17 08:45 60 134/53 09/23/17 08:00 96.6 60 19 134/53 97 Nasal Cannula 2.0 09/23/17 08:00 104 09/23/17 04:00 97.5 89 20 101/66 94 Room Air 09/23/17 04:00 95 09/23/17 00:00 92 09/23/17 00:00 98.0 96 20 133/80 96 Room Air 09/22/17 21:14 95 128/78 09/22/17 20:00 88 09/22/17 20:00 98.0 95 20 128/78 95 95 09/22/17 19:22 Nasal Cannula 2.0 09/22/17 17:22 88 130/75 09/22/17 16:00 93 09/22/17 16:00 98.2 88 130/75 09/22/17 12:00 99 Laboratory Tests 09/22/17 22:00: Stool Occult Blood [Pending] 09/23/17 07:40: White Blood Count 6.4, Red Blood Count 4.47L, Hemoglobin 8.6L, Hematocrit 29.6L , Mean Corpuscular Volume 66L, Mean Corpuscular Hemoglobin 19.3L, Mean Corpuscular Hemoglobin Concent 29.1L, Red Cell Distribution Width 22.6H, Platelet Count 231, Mean Platelet Volume 5.7L, Neutrophils (%) (Auto) 64.6, Lymphocytes (%) (Auto) 14.5L, Monocytes (%) (Auto) 13.3H, Eosinophils (%) (Auto ) 6.4H, Basophils (%) (Auto) 1.2, Sodium Level 134L, Potassium Level 3.6, Chloride Level 97L, Carbon Dioxide Level 33H, Anion Gap 4L, Blood Urea Nitrogen 17, Creatinine 1.2, Estimat Glomerular Filtration Rate , Glucose Level 98, Hemoglobin A1c 5.2, Uric Acid 6.8, Calcium Level 9.4, Phosphorus Level 3.5, Magnesium Level 1.6L, Total Bilirubin 1.2H, Direct Bilirubin 0.5H, Gamma Glutamyl Transpeptidase 23, Aspartate Amino Transf (AST/SGOT) 33, Alanine Aminotransferase (ALT/SGPT) 38, Alkaline Phosphatase 55, Total Creatine Kinase 143, C-Reactive Protein, Quantitative < 0.4, Pro-B-Type Natriuretic Peptide 125 , Total Protein 8.3H, Albumin 3.6, Globulin 4.7, Albumin/Globulin Ratio 0.8L, Triglycerides Level 49, Cholesterol Level 119, LDL Cholesterol 66, HDL Cholesterol 46, Cholesterol/HDL Ratio 2.6L, Thyroid Stimulating Hormone (TSH) 0.866 Height (Feet): 5 Height (Inches): 8.00 Weight (Pounds): 215 General Appearance: no apparent distress, other - stronger Cardiovascular: normal rate Respiratory/Chest: lungs clear Abdomen: soft ELDA FARMER Sep 23, 2017 11:17
[2017-09-23 12:00] VITALS: BP 134/71
--- NOTE | 2017-09-23 14:36 | GI Progress Note ---
Assessment/Plan Problems: (1) Severe anemia ICD Codes: D64.9 - Anemia, unspecified SNOMED: 450314158 (2) Anemia ICD Codes: D64.9 - Anemia, unspecified SNOMED: 890627756 (3) Lightheadedness ICD Codes: R42 - Dizziness and giddiness SNOMED: 849552971 (4) Iron deficiency ICD Codes: E61.1 - Iron deficiency SNOMED: 33924770 (5) Diabetes ICD Codes: E11.9 - Type 2 diabetes mellitus without complications SNOMED: 44820959 Status: progressing Status Narrative Discussed with Dr. Watts. Assessment/Plan Indication for Procedure: abd pain Procedures Performed: EGD, colonoscopy Operative Findings/Diagnosis: gastritis, multiple polyps ZOILA WATTS - Jun 16, 2017 08:42 OB stool positive >> recommend capsule endoscopy, can be done as outpatient. iron deficiency >> venofer stable H&H since transfusion, cont to monitor bowel regime adv diet ppi fu labs Subjective Gastrointestinal/Abdominal: Reports: no symptoms Objective Last 24 Hour Vital Signs Date Time Temp Pulse Resp B/P (MAP) Pulse Ox O2 Delivery O2 Flow Rate FiO2 09/23/17 12:00 81 09/23/17 08:45 134/53 09/23/17 08:45 60 134/53 09/23/17 08:00 96.6 60 19 134/53 97 Nasal Cannula 2.0 09/23/17 08:00 104 09/23/17 04:00 97.5 89 20 101/66 94 Room Air 09/23/17 04:00 95 09/23/17 00:00 92 09/23/17 00:00 98.0 96 20 133/80 96 Room Air 09/22/17 21:14 95 128/78 09/22/17 20:00 88 09/22/17 20:00 98.0 95 20 128/78 95 95 09/22/17 19:22 Nasal Cannula 2.0 09/22/17 17:22 88 130/75 09/22/17 16:00 93 09/22/17 16:00 98.2 88 130/75 Intake and Output 09/23/17 09/24/17 19:00 07:00 Intake Total 100 ml Balance 100 ml IV Total 100 ml Laboratory Tests Test 09/22/17 22:00 09/23/17 07:40 Stool Occult Blood Positive (NEGATIVE) White Blood Count 6.4 K/UL (4.8-10.8) Red Blood Count 4.47 M/UL (4.70-6.10) L Hemoglobin 8.6 G/DL (14.2-18.0) L Hematocrit 29.6 % (42.0-52.0) L Mean Corpuscular Volume 66 FL (80-99) L Mean Corpuscular Hemoglobin 19.3 PG (27.0-31.0) L Mean Corpuscular Hemoglobin Concent 29.1 G/DL (32.0-36.0) L Red Cell Distribution Width 22.6 % (11.6-14.8) H Platelet Count 231 K/UL (150-450) Mean Platelet Volume 5.7 FL (6.5-10.1) L Neutrophils (%) (Auto) 64.6 % (45.0-75.0) Lymphocytes (%) (Auto) 14.5 % (20.0-45.0) L Monocytes (%) (Auto) 13.3 % (1.0-10.0) H Eosinophils (%) (Auto) 6.4 % (0.0-3.0) H Basophils (%) (Auto) 1.2 % (0.0-2.0) Sodium Level 134 MMOL/L (136-145) L Potassium Level 3.6 MMOL/L (3.5-5.1) Chloride Level 97 MMOL/L (98-107) L Carbon Dioxide Level 33 MMOL/L (21-32) H Anion Gap 4 mmol/L (5-15) L Blood Urea Nitrogen 17 mg/dL (7-18) Creatinine 1.2 MG/DL (0.55-1.30) Estimat Glomerular Filtration Rate mL/min (>60) Glucose Level 98 MG/DL (74-106) Hemoglobin A1c 5.2 % (4.3-6.0) Uric Acid 6.8 MG/DL (2.6-7.2) Calcium Level 9.4 MG/DL (8.5-10.1) Phosphorus Level 3.5 MG/DL (2.5-4.9) Magnesium Level 1.6 MG/DL (1.8-2.4) L Total Bilirubin 1.2 MG/DL (0.2-1.0) H Direct Bilirubin 0.5 MG/DL (0.0-0.3) H Gamma Glutamyl Transpeptidase 23 U/L (5-85) Aspartate Amino Transf (AST/SGOT) 33 U/L (15-37) Alanine Aminotransferase (ALT/SGPT) 38 U/L (12-78) Alkaline Phosphatase 55 U/L (46-116) Total Creatine Kinase 143 U/L (26-308) C-Reactive Protein, Quantitative < 0.4 mg/dL (0.00-0.90) Pro-B-Type Natriuretic Peptide 125 pg/mL (0-125) Total Protein 8.3 G/DL (6.4-8.2) H Albumin 3.6 G/DL (3.4-5.0) Globulin 4.7 g/dL Albumin/Globulin Ratio 0.8 (1.0-2.7) L Triglycerides Level 49 MG/DL (30-150) Cholesterol Level 119 MG/DL (< 200) LDL Cholesterol 66 mg/dL (<100) HDL Cholesterol 46 MG/DL (40-60) Cholesterol/HDL Ratio 2.6 (3.3-4.4) L Thyroid Stimulating Hormone (TSH) 0.866 uiU/mL (0.358-3.740) Height (Feet): 5 Height (Inches): 8.00 Weight (Pounds): 215 General Appearance: WD/WN, no apparent distress, alert Cardiovascular: normal rate Respiratory/Chest: normal breath sounds, no respiratory distress Abdominal Exam: normal bowel sounds, non tender, soft Extremities: normal range of motion, non-tender Objective OOB eating with daughter Kerry Daniel N.P. Sep 23, 2017 14:36
[2017-09-23 16:00] VITALS: BP_SYST 124; BP_DIAS 44; BP_DIAS 64
[2017-09-23] MEDS ORDERED: Pneumococcal Vaccine 25mcg/0.5ml IM ONE (16:00)
[2017-09-23] MEDS ORDERED: Flu Vaccine Quadrivalent 0.5ml IM ONE (16:00)
[2017-09-23 20:00] VITALS: BP 112/58
--- NOTE | 2017-09-23 20:44 | General Progress Note ---
Assessment/Plan Assessment/Plan ASSESSMENT AND RECOMMENDATIONS: 1. Anemia secondary to severe iron deficiency. --> on IV iron --> s/p egd and colonoscopy --> OB stool positive 2. Anemia with macrocytosis requiring transfusions from before. 3. Left elbow pain, currently improved. 4. Hypertension. Currently, blood pressures are within normal limits. Subjective Hematologic/Lymphatic: Reports: anemia Allergies: Coded Allergies: No Known Allergies (Unverified , 06/20/14) All Systems: reviewed and negative except above Subjective s/p egd and colonoscopy Objective Last 24 Hour Vital Signs Date Time Temp Pulse Resp B/P (MAP) Pulse Ox O2 Delivery O2 Flow Rate FiO2 09/23/17 16:00 96.6 85 18 124/64 95 Nasal Cannula 2.0 09/23/17 16:00 88 09/23/17 12:00 81 09/23/17 12:00 97.1 81 18 134/71 98 Nasal Cannula 2.0 09/23/17 08:45 134/53 09/23/17 08:45 60 134/53 09/23/17 08:00 96.6 60 19 134/53 97 Nasal Cannula 2.0 09/23/17 08:00 104 09/23/17 04:00 97.5 89 20 101/66 94 Room Air 09/23/17 04:00 95 09/23/17 00:00 92 09/23/17 00:00 98.0 96 20 133/80 96 Room Air 09/22/17 21:14 95 128/78 Intake and Output 09/23/17 09/24/17 19:00 07:00 Intake Total 908 ml Output Total 100 ml Balance 808 ml Intake Oral 708 ml IV Total 200 ml Output Urine Total 100 ml # Voids 2 Laboratory Tests 09/22/17 22:00: Stool Occult Blood Positive 09/23/17 07:40: White Blood Count 6.4, Red Blood Count 4.47L, Hemoglobin 8.6L, Hematocrit 29.6L , Mean Corpuscular Volume 66L, Mean Corpuscular Hemoglobin 19.3L, Mean Corpuscular Hemoglobin Concent 29.1L, Red Cell Distribution Width 22.6H, Platelet Count 231, Mean Platelet Volume 5.7L, Neutrophils (%) (Auto) 64.6, Lymphocytes (%) (Auto) 14.5L, Monocytes (%) (Auto) 13.3H, Eosinophils (%) (Auto ) 6.4H, Basophils (%) (Auto) 1.2, Sodium Level 134L, Potassium Level 3.6, Chloride Level 97L, Carbon Dioxide Level 33H, Anion Gap 4L, Blood Urea Nitrogen 17, Creatinine 1.2, Estimat Glomerular Filtration Rate , Glucose Level 98, Hemoglobin A1c 5.2, Uric Acid 6.8, Calcium Level 9.4, Phosphorus Level 3.5, Magnesium Level 1.6L, Total Bilirubin 1.2H, Direct Bilirubin 0.5H, Gamma Glutamyl Transpeptidase 23, Aspartate Amino Transf (AST/SGOT) 33, Alanine Aminotransferase (ALT/SGPT) 38, Alkaline Phosphatase 55, Total Creatine Kinase 143, C-Reactive Protein, Quantitative < 0.4, Pro-B-Type Natriuretic Peptide 125 , Total Protein 8.3H, Albumin 3.6, Globulin 4.7, Albumin/Globulin Ratio 0.8L, Triglycerides Level 49, Cholesterol Level 119, LDL Cholesterol 66, HDL Cholesterol 46, Cholesterol/HDL Ratio 2.6L, Thyroid Stimulating Hormone (TSH) 0.866 Height (Feet): 5 Height (Inches): 8.00 Weight (Pounds): 215 General Appearance: no apparent distress EENT: normal ENT inspection Neck: normal alignment Cardiovascular: normal peripheral pulses Abdomen: normal bowel sounds Extremities: normal range of motion Edema: trace edema Houston Fountain Sep 23, 2017 20:44
--- NOTE | 2017-09-23 21:13 | General Progress Note ---
Assessment/Plan Problem List: (1) UTI (urinary tract infection) ICD Codes: N39.0 - Urinary tract infection, site not specified SNOMED: 00588852 (2) Iron deficiency ICD Codes: E61.1 - Iron deficiency SNOMED: 22457665 (3) Severe anemia ICD Codes: D64.9 - Anemia, unspecified SNOMED: 366037554 (4) Diabetes ICD Codes: E11.9 - Type 2 diabetes mellitus without complications SNOMED: 78243182 (5) Hypertension ICD Codes: I10 - Essential (primary) hypertension SNOMED: 42278456 Assessment/Plan anemia is improved uti iron def anemia dm reviewed chart and labs afebrile Subjective ROS Limited/Unobtainable: Yes Allergies: Coded Allergies: No Known Allergies (Unverified , 06/20/14) Objective Last 24 Hour Vital Signs Date Time Temp Pulse Resp B/P (MAP) Pulse Ox O2 Delivery O2 Flow Rate FiO2 09/23/17 16:00 96.6 85 18 124/64 95 Nasal Cannula 2.0 09/23/17 16:00 88 09/23/17 12:00 81 09/23/17 12:00 97.1 81 18 134/71 98 Nasal Cannula 2.0 09/23/17 08:45 134/53 09/23/17 08:45 60 134/53 09/23/17 08:00 96.6 60 19 134/53 97 Nasal Cannula 2.0 09/23/17 08:00 104 09/23/17 04:00 97.5 89 20 101/66 94 Room Air 09/23/17 04:00 95 09/23/17 00:00 92 09/23/17 00:00 98.0 96 20 133/80 96 Room Air 09/22/17 21:14 95 128/78 Intake and Output 09/23/17 09/24/17 19:00 07:00 Intake Total 908 ml Output Total 100 ml Balance 808 ml Intake Oral 708 ml IV Total 200 ml Output Urine Total 100 ml # Voids 2 Laboratory Tests 09/22/17 22:00: Stool Occult Blood Positive 09/23/17 07:40: White Blood Count 6.4, Red Blood Count 4.47L, Hemoglobin 8.6L, Hematocrit 29.6L , Mean Corpuscular Volume 66L, Mean Corpuscular Hemoglobin 19.3L, Mean Corpuscular Hemoglobin Concent 29.1L, Red Cell Distribution Width 22.6H, Platelet Count 231, Mean Platelet Volume 5.7L, Neutrophils (%) (Auto) 64.6, Lymphocytes (%) (Auto) 14.5L, Monocytes (%) (Auto) 13.3H, Eosinophils (%) (Auto ) 6.4H, Basophils (%) (Auto) 1.2, Sodium Level 134L, Potassium Level 3.6, Chloride Level 97L, Carbon Dioxide Level 33H, Anion Gap 4L, Blood Urea Nitrogen 17, Creatinine 1.2, Estimat Glomerular Filtration Rate , Glucose Level 98, Hemoglobin A1c 5.2, Uric Acid 6.8, Calcium Level 9.4, Phosphorus Level 3.5, Magnesium Level 1.6L, Total Bilirubin 1.2H, Direct Bilirubin 0.5H, Gamma Glutamyl Transpeptidase 23, Aspartate Amino Transf (AST/SGOT) 33, Alanine Aminotransferase (ALT/SGPT) 38, Alkaline Phosphatase 55, Total Creatine Kinase 143, C-Reactive Protein, Quantitative < 0.4, Pro-B-Type Natriuretic Peptide 125 , Total Protein 8.3H, Albumin 3.6, Globulin 4.7, Albumin/Globulin Ratio 0.8L, Triglycerides Level 49, Cholesterol Level 119, LDL Cholesterol 66, HDL Cholesterol 46, Cholesterol/HDL Ratio 2.6L, Thyroid Stimulating Hormone (TSH) 0.866 Height (Feet): 5 Height (Inches): 8.00 Weight (Pounds): 215 Cardiovascular: normal rate Aracelis Ervin MD Sep 23, 2017 21:13
[2017-09-23] MEDS: Tamsulosin 0.4mg cap ORAL SCH (22:59)
[2017-09-23] MEDS: Atorvastatin 20mg tab ORAL SCH (23:01)
[2017-09-23] MEDS: Iron Sucrose 100 MG in NS 55 ML IV SCH (23:02)
[2017-09-24 00:05] VITALS: BP 133/88
[2017-09-24 04:30] VITALS: BP 113/79
[2017-09-24] MEDS: NovoLOG Insulin Flexpen SUBQ SCH ×4 (06:18→21:55)
[2017-09-24 08:07] VITALS: BP 113/79
[2017-09-24] MEDS: Aspirin Baby 81mg ORAL SCH (08:27)
[2017-09-24] MEDS: Losartan 50mg tab ORAL SCH (08:27)
[2017-09-24] MEDS: Metoprolol Tartrate 12.5mg TAB ORAL SCH ×2 (08:27→21:54)
[2017-09-24] MEDS: Docusate 100mg cap ORAL SCH ×3 (08:27→16:50)
[2017-09-24 08:47] LABS: BASOPHILS % (AUTO) 0.8 % (0.0-2.0); EOSINOPHILS % (AUTO) 3.5 % (0.0-3.0); MEAN CORPUSCULAR HEMOGLOBIN 19.5 PG (27.0-31.0); MEAN CORPUSCULAR HGB CONC 28.9 G/DL (32.0-36.0); MEAN CORPUSCULAR VOLUME 67 FL (80-99); MEAN PLATELET VOLUME 6.2 FL (6.5-10.1); MONOCYTES % (AUTO) 9.4 % (1.0-10.0); NEUTROPHILS % (AUTO) 78.3 % (45.0-75.0); PLATELET COUNT 251 K/UL (150-450); RED BLOOD COUNT 4.26 M/UL (4.70-6.10); WHITE BLOOD COUNT 9.9 K/UL (4.8-10.8)
[2017-09-24 09:10] LABS: ALANINE AMINOTRANSFERASE 37 U/L (12-78); ALBUMIN/GLOBULIN RATIO 0.7 (1.0-2.7); ANION GAP 6 mmol/L (5-15); ASPARTATE AMINO TRANSFERASE 27 U/L (15-37); CALCIUM 8.8 MG/DL (8.5-10.1); CARBON DIOXIDE 31 MMOL/L (21-32); CHLORIDE 99 MMOL/L (98-107); CREATININE 1.3 MG/DL (0.55-1.30); CRP QUANT < 0.4 mg/dL (0.00-0.90); MAGNESIUM 1.8 MG/DL (1.8-2.4); PHOSPHORUS 2.8 MG/DL (2.5-4.9); POTASSIUM 3.7 MMOL/L (3.5-5.1); SODIUM 135 MMOL/L (136-145); URIC ACID 5.7 MG/DL (2.6-7.2)
--- NOTE | 2017-09-24 10:20 | General Progress Note ---
Assessment/Plan Assessment/Plan ASSESSMENT AND RECOMMENDATIONS: 1. Anemia secondary to severe iron deficiency. --> continue IV iron --> s/p egd and colonoscopy --> OB stool positive 2. Anemia with macrocytosis requiring transfusions from before. 3. Left elbow pain, currently improved. 4. Hypertension. Currently, blood pressures are within normal limits. 5. Urinary tract infection Subjective Constitutional: Reports: weakness Hematologic/Lymphatic: Reports: anemia Allergies: Coded Allergies: No Known Allergies (Unverified , 06/20/14) All Systems: reviewed and negative except above Subjective H/H stabilized, on iv iron Objective Last 24 Hour Vital Signs Date Time Temp Pulse Resp B/P (MAP) Pulse Ox O2 Delivery O2 Flow Rate FiO2 09/24/17 08:27 113/79 09/24/17 08:27 115 113/79 09/24/17 08:07 99.1 115 20 113/79 94 Room Air 09/24/17 04:30 99.0 110 20 113/79 94 09/24/17 04:00 105 09/24/17 02:04 97 09/24/17 00:05 97.7 108 20 133/88 95 Nasal Cannula 2.0 09/23/17 23:00 92 112/58 09/23/17 20:00 97 09/23/17 20:00 97.9 92 20 112/58 100 Room Air 09/23/17 16:00 96.6 85 18 124/64 95 Nasal Cannula 2.0 09/23/17 16:00 88 09/23/17 12:00 81 09/23/17 12:00 97.1 81 18 134/71 98 Nasal Cannula 2.0 Intake and Output 09/24/17 09/25/17 19:00 07:00 Intake Total 240 ml Balance 240 ml Intake Oral 240 ml Laboratory Tests 09/24/17 08:10: White Blood Count 9.9#, Red Blood Count 4.26L, Hemoglobin 8.3L, Hematocrit 28.7L , Mean Corpuscular Volume 67L, Mean Corpuscular Hemoglobin 19.5L, Mean Corpuscular Hemoglobin Concent 28.9L, Red Cell Distribution Width 23.0H, Platelet Count 251, Mean Platelet Volume 6.2L, Neutrophils (%) (Auto) 78.3H, Lymphocytes (%) (Auto) 8.0L, Monocytes (%) (Auto) 9.4, Eosinophils (%) (Auto) 3.5H, Basophils (%) (Auto) 0.8, Sodium Level 135L, Potassium Level 3.7, Chloride Level 99, Carbon Dioxide Level 31, Anion Gap 6, Blood Urea Nitrogen 19H , Creatinine 1.3, Estimat Glomerular Filtration Rate , Glucose Level 168H, Uric Acid 5.7, Calcium Level 8.8, Phosphorus Level 2.8, Magnesium Level 1.8, Total Bilirubin 0.8, Aspartate Amino Transf (AST/SGOT) 27, Alanine Aminotransferase ( ALT/SGPT) 37, Alkaline Phosphatase 53, C-Reactive Protein, Quantitative < 0.4, Pro-B-Type Natriuretic Peptide 255H, Total Protein 8.0, Albumin 3.4, Globulin 4.6, Albumin/Globulin Ratio 0.7L Height (Feet): 5 Height (Inches): 8.00 Weight (Pounds): 215 General Appearance: no apparent distress EENT: normal ENT inspection Neck: normal alignment Cardiovascular: normal peripheral pulses Extremities: normal range of motion Skin: normal pigmentation Houston Fountain Sep 24, 2017 10:20
--- NOTE | 2017-09-24 11:28 | Nephrology Progress Note ---
Assessment/Plan Problem List: (1) Diabetes (2) Hypertension (3) Anemia (4) Renal insufficiency Assessment Abnormal Cr 1.5 now wnl Abnormal lytes: Low Mag-Low Na- correcting Low K was on Lasix and HCTZ Severe Anemia on Iron HTN stable DM on insulin Plan Plan: off Diuretics- Metformin- Adjust BP meds K supp. Transfuse IV Iron Monitor renal parameters and lytes Urine studies per orders stable from renal stand Subjective ROS Limited/Unobtainable: No Constitutional: Reports: malaise Objective Objective Last 24 Hour Vital Signs Date Time Temp Pulse Resp B/P (MAP) Pulse Ox O2 Delivery O2 Flow Rate FiO2 09/24/17 08:27 113/79 09/24/17 08:27 115 113/79 09/24/17 08:07 99.1 115 20 113/79 94 Room Air 09/24/17 04:30 99.0 110 20 113/79 94 09/24/17 04:00 105 09/24/17 02:04 97 09/24/17 00:05 97.7 108 20 133/88 95 Nasal Cannula 2.0 09/23/17 23:00 92 112/58 09/23/17 20:00 97 09/23/17 20:00 97.9 92 20 112/58 100 Room Air 09/23/17 16:00 96.6 85 18 124/64 95 Nasal Cannula 2.0 09/23/17 16:00 88 09/23/17 12:00 81 09/23/17 12:00 97.1 81 18 134/71 98 Nasal Cannula 2.0 Intake and Output 09/24/17 09/25/17 19:00 07:00 Intake Total 240 ml Balance 240 ml Intake Oral 240 ml Laboratory Tests 09/24/17 08:10: White Blood Count 9.9#, Red Blood Count 4.26L, Hemoglobin 8.3L, Hematocrit 28.7L , Mean Corpuscular Volume 67L, Mean Corpuscular Hemoglobin 19.5L, Mean Corpuscular Hemoglobin Concent 28.9L, Red Cell Distribution Width 23.0H, Platelet Count 251, Mean Platelet Volume 6.2L, Neutrophils (%) (Auto) 78.3H, Lymphocytes (%) (Auto) 8.0L, Monocytes (%) (Auto) 9.4, Eosinophils (%) (Auto) 3.5H, Basophils (%) (Auto) 0.8, Sodium Level 135L, Potassium Level 3.7, Chloride Level 99, Carbon Dioxide Level 31, Anion Gap 6, Blood Urea Nitrogen 19H , Creatinine 1.3, Estimat Glomerular Filtration Rate , Glucose Level 168H, Uric Acid 5.7, Calcium Level 8.8, Phosphorus Level 2.8, Magnesium Level 1.8, Total Bilirubin 0.8, Aspartate Amino Transf (AST/SGOT) 27, Alanine Aminotransferase ( ALT/SGPT) 37, Alkaline Phosphatase 53, C-Reactive Protein, Quantitative < 0.4, Pro-B-Type Natriuretic Peptide 255H, Total Protein 8.0, Albumin 3.4, Globulin 4.6, Albumin/Globulin Ratio 0.7L Height (Feet): 5 Height (Inches): 8.00 Weight (Pounds): 215 General Appearance: no apparent distress Objective PE not changed ELDA FARMER Sep 24, 2017 11:28
[2017-09-24 11:57] VITALS: BP 144/73
--- NOTE | 2017-09-24 13:22 | GI Progress Note ---
Assessment/Plan Problems: (1) Severe anemia ICD Codes: D64.9 - Anemia, unspecified SNOMED: 922414989 (2) Anemia ICD Codes: D64.9 - Anemia, unspecified SNOMED: 207869958 (3) Lightheadedness ICD Codes: R42 - Dizziness and giddiness SNOMED: 483012042 (4) Iron deficiency ICD Codes: E61.1 - Iron deficiency SNOMED: 15001207 (5) Diabetes ICD Codes: E11.9 - Type 2 diabetes mellitus without complications SNOMED: 99039327 Status: stable Status Narrative Discussed with Dr. Watts. Assessment/Plan Indication for Procedure: abd pain Procedures Performed: EGD, colonoscopy Operative Findings/Diagnosis: gastritis, multiple polyps ZOILA WATTS - Jun 16, 2017 08:42 okay for DC per GI standpoint OB stool positive >> outpatient capsule endoscopy iron deficiency >> venofer stable H&H since transfusion, cont to monitor bowel regime adv diet ppi fu labs The patient was seen and examined at bedside and all new and available data was reviewed in the patients chart. I agree with the above findings, impression and plan. (Patient seen earlier today. Signature stamp does not reflect patient encounter time.). - Tiffany Watts MD Subjective Gastrointestinal/Abdominal: Reports: no symptoms Objective Last 24 Hour Vital Signs Date Time Temp Pulse Resp B/P (MAP) Pulse Ox O2 Delivery O2 Flow Rate FiO2 09/24/17 11:57 97.5 89 20 144/73 93 Room Air 09/24/17 08:27 113/79 09/24/17 08:27 115 113/79 09/24/17 08:07 99.1 115 20 113/79 94 Room Air 09/24/17 07:43 118 09/24/17 04:30 99.0 110 20 113/79 94 09/24/17 04:00 105 09/24/17 02:04 97 09/24/17 00:05 97.7 108 20 133/88 95 Nasal Cannula 2.0 09/23/17 23:00 92 112/58 09/23/17 20:00 97 09/23/17 20:00 97.9 92 20 112/58 100 Room Air 09/23/17 16:00 96.6 85 18 124/64 95 Nasal Cannula 2.0 09/23/17 16:00 88 Intake and Output 09/23/17 09/24/17 19:00 07:00 Intake Total 908 ml Output Total 100 ml Balance 808 ml Intake Oral 708 ml IV Total 200 ml Output Urine Total 100 ml # Voids 2 2 Laboratory Tests Test 09/24/17 08:10 White Blood Count 9.9 K/UL (4.8-10.8) # Red Blood Count 4.26 M/UL (4.70-6.10) L Hemoglobin 8.3 G/DL (14.2-18.0) L Hematocrit 28.7 % (42.0-52.0) L Mean Corpuscular Volume 67 FL (80-99) L Mean Corpuscular Hemoglobin 19.5 PG (27.0-31.0) L Mean Corpuscular Hemoglobin Concent 28.9 G/DL (32.0-36.0) L Red Cell Distribution Width 23.0 % (11.6-14.8) H Platelet Count 251 K/UL (150-450) Mean Platelet Volume 6.2 FL (6.5-10.1) L Neutrophils (%) (Auto) 78.3 % (45.0-75.0) H Lymphocytes (%) (Auto) 8.0 % (20.0-45.0) L Monocytes (%) (Auto) 9.4 % (1.0-10.0) Eosinophils (%) (Auto) 3.5 % (0.0-3.0) H Basophils (%) (Auto) 0.8 % (0.0-2.0) Sodium Level 135 MMOL/L (136-145) L Potassium Level 3.7 MMOL/L (3.5-5.1) Chloride Level 99 MMOL/L (98-107) Carbon Dioxide Level 31 MMOL/L (21-32) Anion Gap 6 mmol/L (5-15) Blood Urea Nitrogen 19 mg/dL (7-18) H Creatinine 1.3 MG/DL (0.55-1.30) Estimat Glomerular Filtration Rate mL/min (>60) Glucose Level 168 MG/DL (74-106) H Uric Acid 5.7 MG/DL (2.6-7.2) Calcium Level 8.8 MG/DL (8.5-10.1) Phosphorus Level 2.8 MG/DL (2.5-4.9) Magnesium Level 1.8 MG/DL (1.8-2.4) Total Bilirubin 0.8 MG/DL (0.2-1.0) Aspartate Amino Transf (AST/SGOT) 27 U/L (15-37) Alanine Aminotransferase (ALT/SGPT) 37 U/L (12-78) Alkaline Phosphatase 53 U/L (46-116) C-Reactive Protein, Quantitative < 0.4 mg/dL (0.00-0.90) Pro-B-Type Natriuretic Peptide 255 pg/mL (0-125) H Total Protein 8.0 G/DL (6.4-8.2) Albumin 3.4 G/DL (3.4-5.0) Globulin 4.6 g/dL Albumin/Globulin Ratio 0.7 (1.0-2.7) L Height (Feet): 5 Height (Inches): 8.00 Weight (Pounds): 215 General Appearance: WD/WN, no apparent distress, alert, thin Cardiovascular: normal rate Respiratory/Chest: normal breath sounds, no respiratory distress Abdominal Exam: normal bowel sounds, non tender, soft Extremities: normal range of motion, non-tender Objective OOB eating with daughter Kerry Daniel Ezequiel N.Stephanie Sep 24, 2017 13:22 ZOILA WATTS Sep 26, 2017 09:14
[2017-09-24 16:00] VITALS: BP 131/70
--- NOTE | 2017-09-24 20:30 | General Progress Note ---
Assessment/Plan Problem List: (1) UTI (urinary tract infection) ICD Codes: N39.0 - Urinary tract infection, site not specified SNOMED: 75265945 (2) Iron deficiency ICD Codes: E61.1 - Iron deficiency SNOMED: 18031563 (3) Severe anemia ICD Codes: D64.9 - Anemia, unspecified SNOMED: 079901491 (4) Diabetes ICD Codes: E11.9 - Type 2 diabetes mellitus without complications SNOMED: 70894900 (5) Hypertension ICD Codes: I10 - Essential (primary) hypertension SNOMED: 15920103 Status: progressing Assessment/Plan anemia is improved uti dc planning will discuss w heme/onc Subjective ROS Limited/Unobtainable: Yes Constitutional: Reports: no symptoms Allergies: Coded Allergies: No Known Allergies (Unverified , 06/20/14) Objective Last 24 Hour Vital Signs Date Time Temp Pulse Resp B/P (MAP) Pulse Ox O2 Delivery O2 Flow Rate FiO2 09/24/17 16:00 98.2 100 18 131/70 93 Room Air 09/24/17 15:11 98 09/24/17 11:57 97.5 89 20 144/73 93 Room Air 09/24/17 11:45 94 09/24/17 08:27 113/79 09/24/17 08:27 115 113/79 09/24/17 08:07 99.1 115 20 113/79 94 Room Air 09/24/17 07:43 118 09/24/17 04:30 99.0 110 20 113/79 94 09/24/17 04:00 105 09/24/17 02:04 97 09/24/17 00:05 97.7 108 20 133/88 95 Nasal Cannula 2.0 09/23/17 23:00 92 112/58 Intake and Output 09/23/17 09/24/17 19:00 07:00 Intake Total 908 ml Output Total 100 ml Balance 808 ml Intake Oral 708 ml IV Total 200 ml Output Urine Total 100 ml # Voids 2 2 Laboratory Tests 09/24/17 08:10: White Blood Count 9.9#, Red Blood Count 4.26L, Hemoglobin 8.3L, Hematocrit 28.7L , Mean Corpuscular Volume 67L, Mean Corpuscular Hemoglobin 19.5L, Mean Corpuscular Hemoglobin Concent 28.9L, Red Cell Distribution Width 23.0H, Platelet Count 251, Mean Platelet Volume 6.2L, Neutrophils (%) (Auto) 78.3H, Lymphocytes (%) (Auto) 8.0L, Monocytes (%) (Auto) 9.4, Eosinophils (%) (Auto) 3.5H, Basophils (%) (Auto) 0.8, Sodium Level 135L, Potassium Level 3.7, Chloride Level 99, Carbon Dioxide Level 31, Anion Gap 6, Blood Urea Nitrogen 19H , Creatinine 1.3, Estimat Glomerular Filtration Rate , Glucose Level 168H, Uric Acid 5.7, Calcium Level 8.8, Phosphorus Level 2.8, Magnesium Level 1.8, Total Bilirubin 0.8, Aspartate Amino Transf (AST/SGOT) 27, Alanine Aminotransferase ( ALT/SGPT) 37, Alkaline Phosphatase 53, C-Reactive Protein, Quantitative < 0.4, Pro-B-Type Natriuretic Peptide 255H, Total Protein 8.0, Albumin 3.4, Globulin 4.6, Albumin/Globulin Ratio 0.7L Height (Feet): 5 Height (Inches): 8.00 Weight (Pounds): 215 General Appearance: mild distress Respiratory/Chest: lungs clear Abdomen: soft Aracelis Ervin MD Sep 24, 2017 20:30
[2017-09-24 20:48] VITALS: BP 137/80
[2017-09-24] MEDS: Iron Sucrose 100 MG in NS 55 ML IV SCH (21:53)
[2017-09-24] MEDS: Atorvastatin 20mg tab ORAL SCH (21:53)
[2017-09-24] MEDS: Tamsulosin 0.4mg cap ORAL SCH (21:53)
[2017-09-25 00:55] VITALS: BP 130/80
[2017-09-25 04:38] VITALS: BP 126/76
[2017-09-25] MEDS: NovoLOG Insulin Flexpen SUBQ SCH ×4 (06:30→20:46)
[2017-09-25 08:00] VITALS: BP 116/67
[2017-09-25] MEDS: Metoprolol Tartrate 12.5mg TAB ORAL SCH ×2 (08:41→20:40)
[2017-09-25] MEDS: Losartan 50mg tab ORAL SCH (08:43)
[2017-09-25] MEDS: Docusate 100mg cap ORAL SCH ×3 (08:48→18:28)
[2017-09-25] MEDS: Aspirin Baby 81mg ORAL SCH (08:48)
[2017-09-25 09:02] LABS: ANION GAP 8 mmol/L (5-15); CALCIUM 8.9 MG/DL (8.5-10.1); CARBON DIOXIDE 28 MMOL/L (21-32); CHLORIDE 101 MMOL/L (98-107); CREATININE 1.2 MG/DL (0.55-1.30); POTASSIUM 3.8 MMOL/L (3.5-5.1); SODIUM 136 MMOL/L (136-145)
--- NOTE | 2017-09-25 09:20 | Nephrology Progress Note ---
Assessment/Plan Problem List: (1) Diabetes (2) Hypertension (3) Anemia (4) Renal insufficiency Assessment Abnormal Cr 1.5 now wnl Abnormal lytes: Low Mag-Low Na- correcting Low K was on Lasix and HCTZ Severe Anemia on Iron HTN stable DM on insulin Plan Plan: off Diuretics- Metformin- Adjust BP meds K supp. Transfuse IV Iron Monitor renal parameters and lytes Urine studies per orders stable from renal stand Subjective ROS Limited/Unobtainable: No Objective Objective Last 24 Hour Vital Signs Date Time Temp Pulse Resp B/P (MAP) Pulse Ox O2 Delivery O2 Flow Rate FiO2 09/25/17 08:43 116/67 09/25/17 08:41 105 116/67 09/25/17 04:38 97.6 68 19 126/76 96 Room Air 09/25/17 04:00 103 09/25/17 00:55 96.9 80 18 130/80 97 Room Air 09/25/17 00:00 110 09/24/17 21:54 95 137/80 09/24/17 20:48 98.6 95 18 137/80 93 Room Air 09/24/17 20:00 109 09/24/17 16:00 98.2 100 18 131/70 93 Room Air 09/24/17 15:11 98 09/24/17 11:57 97.5 89 20 144/73 93 Room Air 09/24/17 11:45 94 Intake and Output 09/24/17 09/25/17 19:00 07:00 Intake Total 720 ml Output Total 100 ml 200 ml Balance 620 ml -200 ml Intake Oral 720 ml Output Urine Total 100 ml 200 ml # Voids 4 Laboratory Tests 09/25/17 08:30: White Blood Count [Pending], Red Blood Count [Pending], Hemoglobin [Pending], Hematocrit [Pending], Mean Corpuscular Volume [Pending], Mean Corpuscular Hemoglobin [Pending], Mean Corpuscular Hemoglobin Concent [Pending], Red Cell Distribution Width [Pending], Platelet Count [Pending], Mean Platelet Volume [ Pending], Neutrophils (%) (Auto) [Pending], Lymphocytes (%) (Auto) [Pending], Monocytes (%) (Auto) [Pending], Eosinophils (%) (Auto) [Pending], Basophils (%) (Auto) [Pending], Sodium Level 136, Potassium Level 3.8, Chloride Level 101, Carbon Dioxide Level 28, Anion Gap 8, Blood Urea Nitrogen 14, Creatinine 1.2, Estimat Glomerular Filtration Rate , Glucose Level 175H, Calcium Level 8.9 Height (Feet): 5 Height (Inches): 8.00 Weight (Pounds): 215 General Appearance: no apparent distress Objective PE not changed ELDA FARMER Sep 25, 2017 09:20
[2017-09-25 09:22] LABS: MEAN CORPUSCULAR HEMOGLOBIN 19.3 PG (27.0-31.0); MEAN CORPUSCULAR HGB CONC 28.5 G/DL (32.0-36.0); MEAN CORPUSCULAR VOLUME 68 FL (80-99); MEAN PLATELET VOLUME 8.7 FL (6.5-10.1); PLATELET COUNT 254 K/UL (150-450); RED BLOOD COUNT 4.07 M/UL (4.70-6.10); RED CELL DISTRIBUTION WIDTH 24.5 % (11.6-14.8); WHITE BLOOD COUNT 7.2 K/UL (4.8-10.8)
[2017-09-25 10:00] LABS: BAND NEUTROPHILS % (MANUAL) 0 % (0-8); BASOPHILS % (MANUAL) 0 % (0-2); EOSINOPHILS % (MANUAL) 5 % (0-3); LYMPHOCYTES % (MANUAL) 18 % (20-45); NEUTROPHILS % (MANUAL) 71 % (45-75); PLATELET ESTIMATE ADEQUATE; PLATELET MORPHOLOGY NORMAL; TOTAL CELLS COUNTED 100
[2017-09-25 10:01] LABS: ANISOCYTOSIS 2+; HYPOCHROMASIA 1+; MICROCYTES 2+; POLYCHROMASIA 1+
[2017-09-25 12:00] VITALS: BP 153/77
--- NOTE | 2017-09-25 13:11 | GI Progress Note ---
Assessment/Plan Problems: (1) Severe anemia ICD Codes: D64.9 - Anemia, unspecified SNOMED: 407057432 (2) Anemia ICD Codes: D64.9 - Anemia, unspecified SNOMED: 440583462 (3) Lightheadedness ICD Codes: R42 - Dizziness and giddiness SNOMED: 233136181 (4) Iron deficiency ICD Codes: E61.1 - Iron deficiency SNOMED: 08581990 (5) Diabetes ICD Codes: E11.9 - Type 2 diabetes mellitus without complications SNOMED: 45616606 Status: stable Status Narrative Discussed with Dr. Watts. Assessment/Plan Indication for Procedure: abd pain Procedures Performed: EGD, colonoscopy Operative Findings/Diagnosis: gastritis, multiple polyps ZOILA WATTS - Jun 16, 2017 08:42 okay for DC per GI standpoint OB stool positive >> outpatient capsule endoscopy, will contact patient for fu iron deficiency >> venofer stable H&H since transfusion, cont to monitor bowel regime adv diet ppi fu labs Subjective Subjective feels better ready to go home Objective Last 24 Hour Vital Signs Date Time Temp Pulse Resp B/P (MAP) Pulse Ox O2 Delivery O2 Flow Rate FiO2 09/25/17 08:43 116/67 09/25/17 08:41 105 116/67 09/25/17 08:00 97.9 105 20 116/67 Room Air 09/25/17 08:00 105 09/25/17 04:38 97.6 68 19 126/76 96 Room Air 09/25/17 04:00 103 09/25/17 00:55 96.9 80 18 130/80 97 Room Air 09/25/17 00:00 110 09/24/17 21:54 95 137/80 09/24/17 20:48 98.6 95 18 137/80 93 Room Air 09/24/17 20:00 109 09/24/17 16:00 98.2 100 18 131/70 93 Room Air 09/24/17 15:11 98 Intake and Output 09/24/17 09/25/17 19:00 07:00 Intake Total 720 ml Output Total 100 ml 200 ml Balance 620 ml -200 ml Intake Oral 720 ml Output Urine Total 100 ml 200 ml # Voids 4 Laboratory Tests Test 09/25/17 08:30 White Blood Count 7.2 K/UL (4.8-10.8) Red Blood Count 4.07 M/UL (4.70-6.10) L Hemoglobin 7.9 G/DL (14.2-18.0) L Hematocrit 27.6 % (42.0-52.0) L Mean Corpuscular Volume 68 FL (80-99) L Mean Corpuscular Hemoglobin 19.3 PG (27.0-31.0) L Mean Corpuscular Hemoglobin Concent 28.5 G/DL (32.0-36.0) L Red Cell Distribution Width 24.5 % (11.6-14.8) H Platelet Count 254 K/UL (150-450) Mean Platelet Volume 8.7 FL (6.5-10.1) Neutrophils (%) (Auto) % (45.0-75.0) Lymphocytes (%) (Auto) % (20.0-45.0) Monocytes (%) (Auto) % (1.0-10.0) Eosinophils (%) (Auto) % (0.0-3.0) Basophils (%) (Auto) % (0.0-2.0) Differential Total Cells Counted 100 Neutrophils % (Manual) 71 % (45-75) Lymphocytes % (Manual) 18 % (20-45) L Monocytes % (Manual) 6 % (1-10) Eosinophils % (Manual) 5 % (0-3) H Basophils % (Manual) 0 % (0-2) Band Neutrophils 0 % (0-8) Platelet Estimate Adequate Platelet Morphology Normal Polychromasia 1+ Hypochromasia 1+ Anisocytosis 2+ Microcytosis 2+ Sodium Level 136 MMOL/L (136-145) Potassium Level 3.8 MMOL/L (3.5-5.1) Chloride Level 101 MMOL/L (98-107) Carbon Dioxide Level 28 MMOL/L (21-32) Anion Gap 8 mmol/L (5-15) Blood Urea Nitrogen 14 mg/dL (7-18) Creatinine 1.2 MG/DL (0.55-1.30) Estimat Glomerular Filtration Rate mL/min (>60) Glucose Level 175 MG/DL (74-106) H Calcium Level 8.9 MG/DL (8.5-10.1) Height (Feet): 5 Height (Inches): 8.00 Weight (Pounds): 215 General Appearance: WD/WN, no apparent distress, alert Cardiovascular: normal rate Respiratory/Chest: normal breath sounds, no respiratory distress Abdominal Exam: normal bowel sounds, non tender, soft Extremities: normal range of motion, non-tender Objective OOB eating with daughter Kerry Daniel Ezequiel Tamiko Sep 25, 2017 13:10
[2017-09-25] MEDS ORDERED: NS 500ML ONE ×2 (15:34→16:06)
[2017-09-25 16:00] VITALS: BP 124/78
[2017-09-25] MEDS ORDERED: Tubing IV Secondary IV ONE (16:06)
--- NOTE | 2017-09-25 17:31 | General Progress Note ---
Assessment/Plan Assessment/Plan ASSESSMENT AND RECOMMENDATIONS 1. Anemia secondary to severe iron deficiency. --> continue IV iron --> s/p egd and colonoscopy --> OB stool positive? Will have capsule endoscopy as outpatient 2. Anemia with macrocytosis requiring transfusions from before. 3. Left elbow pain, currently improved. 4. Hypertension. Subjective Hematologic/Lymphatic: Reports: anemia Allergies: Coded Allergies: No Known Allergies (Unverified , 06/20/14) All Systems: reviewed and negative except above Subjective received 1 unit prbc today Objective Last 24 Hour Vital Signs Date Time Temp Pulse Resp B/P (MAP) Pulse Ox O2 Delivery O2 Flow Rate FiO2 09/25/17 12:00 98 09/25/17 12:00 98.4 88 20 153/77 Room Air 09/25/17 08:43 116/67 09/25/17 08:41 105 116/67 09/25/17 08:00 97.9 105 20 116/67 Room Air 09/25/17 08:00 105 09/25/17 04:38 97.6 68 19 126/76 96 Room Air 09/25/17 04:00 103 09/25/17 00:55 96.9 80 18 130/80 97 Room Air 09/25/17 00:00 110 09/24/17 21:54 95 137/80 09/24/17 20:48 98.6 95 18 137/80 93 Room Air 09/24/17 20:00 109 Intake and Output 09/24/17 09/25/17 19:00 07:00 Intake Total 720 ml Output Total 100 ml 200 ml Balance 620 ml -200 ml Intake Oral 720 ml Output Urine Total 100 ml 200 ml # Voids 4 Laboratory Tests 09/25/17 08:30: White Blood Count 7.2, Red Blood Count 4.07L, Hemoglobin 7.9L, Hematocrit 27.6L , Mean Corpuscular Volume 68L, Mean Corpuscular Hemoglobin 19.3L, Mean Corpuscular Hemoglobin Concent 28.5L, Red Cell Distribution Width 24.5H, Platelet Count 254, Mean Platelet Volume 8.7, Neutrophils (%) (Auto) , Lymphocytes (%) (Auto) , Monocytes (%) (Auto) , Eosinophils (%) (Auto) , Basophils (%) (Auto) , Differential Total Cells Counted 100, Neutrophils % ( Manual) 71, Lymphocytes % (Manual) 18L, Monocytes % (Manual) 6, Eosinophils % ( Manual) 5H, Basophils % (Manual) 0, Band Neutrophils 0, Platelet Estimate Adequate, Platelet Morphology Normal, Polychromasia 1+, Hypochromasia 1+, Anisocytosis 2+, Microcytosis 2+, Sodium Level 136, Potassium Level 3.8, Chloride Level 101, Carbon Dioxide Level 28, Anion Gap 8, Blood Urea Nitrogen 14 , Creatinine 1.2, Estimat Glomerular Filtration Rate , Glucose Level 175H, Calcium Level 8.9 Height (Feet): 5 Height (Inches): 8.00 Weight (Pounds): 215 General Appearance: no apparent distress EENT: normal ENT inspection Neck: normal alignment Cardiovascular: normal peripheral pulses, normal rate 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
[2017-09-25] MEDS: Tamsulosin 0.4mg cap ORAL SCH (20:39)
[2017-09-25] MEDS: Atorvastatin 20mg tab ORAL SCH (20:39)
[2017-09-25] MEDS: Iron Sucrose 100 MG in NS 55 ML IV SCH (20:40)
[2017-09-25 20:48] VITALS: BP 137/73
--- NOTE | 2017-09-25 21:04 | General Progress Note ---
Assessment/Plan Problem List: (1) UTI (urinary tract infection) ICD Codes: N39.0 - Urinary tract infection, site not specified SNOMED: 05356000 (2) Iron deficiency ICD Codes: E61.1 - Iron deficiency SNOMED: 28364885 (3) Severe anemia ICD Codes: D64.9 - Anemia, unspecified SNOMED: 177160289 (4) Diabetes ICD Codes: E11.9 - Type 2 diabetes mellitus without complications SNOMED: 00172931 (5) Hypertension ICD Codes: I10 - Essential (primary) hypertension SNOMED: 81125735 Status: progressing Assessment/Plan anemia is improved uti improved dc in am afebrile no bleeding Subjective ROS Limited/Unobtainable: Yes Allergies: Coded Allergies: No Known Allergies (Unverified , 06/20/14) Objective Last 24 Hour Vital Signs Date Time Temp Pulse Resp B/P (MAP) Pulse Ox O2 Delivery O2 Flow Rate FiO2 09/25/17 20:48 97.9 90 18 137/73 Room Air 09/25/17 20:40 82 124/78 09/25/17 16:00 99.5 84 20 124/78 Room Air 09/25/17 16:00 82 09/25/17 12:00 98 09/25/17 12:00 98.4 88 20 153/77 Room Air 09/25/17 08:43 116/67 09/25/17 08:41 105 116/67 09/25/17 08:00 97.9 105 20 116/67 Room Air 09/25/17 08:00 105 09/25/17 04:38 97.6 68 19 126/76 96 Room Air 09/25/17 04:00 103 09/25/17 00:55 96.9 80 18 130/80 97 Room Air 09/25/17 00:00 110 09/24/17 21:54 95 137/80 Intake and Output 09/24/17 09/25/17 19:00 07:00 Intake Total 720 ml Output Total 100 ml 200 ml Balance 620 ml -200 ml Intake Oral 720 ml Output Urine Total 100 ml 200 ml # Voids 4 Laboratory Tests 09/25/17 08:30: White Blood Count 7.2, Red Blood Count 4.07L, Hemoglobin 7.9L, Hematocrit 27.6L , Mean Corpuscular Volume 68L, Mean Corpuscular Hemoglobin 19.3L, Mean Corpuscular Hemoglobin Concent 28.5L, Red Cell Distribution Width 24.5H, Platelet Count 254, Mean Platelet Volume 8.7, Neutrophils (%) (Auto) , Lymphocytes (%) (Auto) , Monocytes (%) (Auto) , Eosinophils (%) (Auto) , Basophils (%) (Auto) , Differential Total Cells Counted 100, Neutrophils % ( Manual) 71, Lymphocytes % (Manual) 18L, Monocytes % (Manual) 6, Eosinophils % ( Manual) 5H, Basophils % (Manual) 0, Band Neutrophils 0, Platelet Estimate Adequate, Platelet Morphology Normal, Polychromasia 1+, Hypochromasia 1+, Anisocytosis 2+, Microcytosis 2+, Sodium Level 136, Potassium Level 3.8, Chloride Level 101, Carbon Dioxide Level 28, Anion Gap 8, Blood Urea Nitrogen 14 , Creatinine 1.2, Estimat Glomerular Filtration Rate , Glucose Level 175H, Calcium Level 8.9 Height (Feet): 5 Height (Inches): 8.00 Weight (Pounds): 215 Cardiovascular: normal rate Aracelis Ervin MD Sep 25, 2017 21:04
[2017-09-26 01:00] VITALS: BP 124/66
[2017-09-26 04:41] VITALS: BP 119/60
[2017-09-26] MEDS: NovoLOG Insulin Flexpen SUBQ SCH ×2 (06:30→11:42)
[2017-09-26 08:00] VITALS: BP 139/78
[2017-09-26 09:04] LABS: BASOPHILS % (AUTO) 1.1 % (0.0-2.0); EOSINOPHILS % (AUTO) 4.9 % (0.0-3.0); LYMPHOCYTES % (AUTO) 12.4 % (20.0-45.0); MEAN CORPUSCULAR HEMOGLOBIN 19.7 PG (27.0-31.0); MEAN CORPUSCULAR HGB CONC 27.9 G/DL (32.0-36.0); MEAN CORPUSCULAR VOLUME 70 FL (80-99); MEAN PLATELET VOLUME 5.4 FL (6.5-10.1); MONOCYTES % (AUTO) 9.6 % (1.0-10.0); PLATELET COUNT 196 K/UL (150-450); RED BLOOD COUNT 4.48 M/UL (4.70-6.10); RED CELL DISTRIBUTION WIDTH 25.8 % (11.6-14.8); WHITE BLOOD COUNT 7.1 K/UL (4.8-10.8)
[2017-09-26 09:12] LABS: ANION GAP 4 mmol/L (5-15); CALCIUM 7.6 MG/DL (8.5-10.1); CARBON DIOXIDE 29 MMOL/L (21-32); CHLORIDE 103 MMOL/L (98-107); CREATININE 1.2 MG/DL (0.55-1.30); POTASSIUM 3.9 MMOL/L (3.5-5.1); SODIUM 136 MMOL/L (136-145)
[2017-09-26 09:17] LABS: ALANINE AMINOTRANSFERASE 30 U/L (12-78); ALBUMIN/GLOBULIN RATIO 0.7 (1.0-2.7); ASPARTATE AMINO TRANSFERASE 27 U/L (15-37); TOTAL PROTEIN 7.4 G/DL (6.4-8.2)
[2017-09-26] MEDS: Losartan 50mg tab ORAL SCH (09:17)
[2017-09-26] MEDS: Metoprolol Tartrate 12.5mg TAB ORAL SCH (09:17)
[2017-09-26] MEDS: Aspirin Baby 81mg ORAL SCH (09:18)
[2017-09-26] MEDS: Docusate 100mg cap ORAL SCH ×2 (09:18→13:26)
--- NOTE | 2017-09-26 09:49 | General Progress Note ---
Assessment/Plan Assessment/Plan ASSESSMENT AND RECOMMENDATIONS #. Anemia secondary to severe iron deficiency. --> continue IV iron --> s/p egd and colonoscopy --> OB stool positive? Will have capsule endoscopy as outpatient --> H/H improved #. UTI Subjective Hematologic/Lymphatic: Reports: anemia Allergies: Coded Allergies: No Known Allergies (Unverified , 06/20/14) All Systems: reviewed and negative except above Subjective H/H improved Objective Last 24 Hour Vital Signs Date Time Temp Pulse Resp B/P (MAP) Pulse Ox O2 Delivery O2 Flow Rate FiO2 09/26/17 09:17 139/78 09/26/17 09:17 98 139/78 09/26/17 08:00 98.4 98 20 139/78 93 Room Air 09/26/17 04:41 98.4 74 20 119/60 98 Room Air 09/26/17 04:00 98 09/26/17 01:00 97.7 84 18 124/66 94 Room Air 09/26/17 00:00 89 09/25/17 20:48 97.9 90 18 137/73 Room Air 09/25/17 20:40 82 124/78 09/25/17 20:00 95 09/25/17 16:00 99.5 84 20 124/78 Room Air 09/25/17 16:00 82 09/25/17 12:00 98 09/25/17 12:00 98.4 88 20 153/77 Room Air Intake and Output 09/25/17 09/26/17 19:00 07:00 Intake Total 700 ml Output Total 800 ml 300 ml Balance -100 ml -300 ml Intake Oral 700 ml Output Urine Total 800 ml 300 ml Laboratory Tests 09/26/17 08:55: White Blood Count 7.1, Red Blood Count 4.48L, Hemoglobin 8.8L, Hematocrit 31.5L , Mean Corpuscular Volume 70L, Mean Corpuscular Hemoglobin 19.7L, Mean Corpuscular Hemoglobin Concent 27.9L, Red Cell Distribution Width 25.8H, Platelet Count 196, Mean Platelet Volume 5.4L, Neutrophils (%) (Auto) 72.0, Lymphocytes (%) (Auto) 12.4L, Monocytes (%) (Auto) 9.6, Eosinophils (%) (Auto) 4.9H, Basophils (%) (Auto) 1.1, Sodium Level 136, Potassium Level 3.9, Chloride Level 103, Carbon Dioxide Level 29, Anion Gap 4L, Blood Urea Nitrogen 13, Creatinine 1.2, Estimat Glomerular Filtration Rate , Glucose Level 187H, Calcium Level 7.6L, Total Bilirubin 0.9, Aspartate Amino Transf (AST/SGOT) 27, Alanine Aminotransferase (ALT/SGPT) 30, Alkaline Phosphatase 48, Total Protein 7.4, Albumin 3.1L, Globulin 4.3, Albumin/Globulin Ratio 0.7L Height (Feet): 5 Height (Inches): 8.00 Weight (Pounds): 215 General Appearance: no apparent distress EENT: normal ENT inspection Neck: normal alignment Cardiovascular: normal peripheral pulses Respiratory/Chest: chest wall non-tender Abdomen: non tender Extremities: normal range of motion Edema: 1+ Pedal (L), 1+ Pedal (R) Houston Fountain Sep 26, 2017 09:49
[2017-09-26 11:52] VITALS: BP 134/76
--- NOTE | 2017-09-26 13:25 | GI Progress Note ---
Assessment/Plan Problems: (1) Severe anemia ICD Codes: D64.9 - Anemia, unspecified SNOMED: 567370846 (2) Anemia ICD Codes: D64.9 - Anemia, unspecified SNOMED: 887409485 (3) Lightheadedness ICD Codes: R42 - Dizziness and giddiness SNOMED: 843378593 (4) Iron deficiency ICD Codes: E61.1 - Iron deficiency SNOMED: 77853682 (5) Diabetes ICD Codes: E11.9 - Type 2 diabetes mellitus without complications SNOMED: 58067549 Status: stable Status Narrative Discussed with Dr. Watts. Assessment/Plan Indication for Procedure: abd pain Procedures Performed: EGD, colonoscopy Operative Findings/Diagnosis: gastritis, multiple polyps ZOILA WATTS - Jun 16, 2017 08:42 okay for DC per GI standpoint OB stool positive >> outpatient capsule endoscopy, will contact patient for fu iron deficiency >> venofer stable H&H since transfusion, cont to monitor bowel regime adv diet ppi fu labs Subjective Subjective feels better ready to go home Objective Last 24 Hour Vital Signs Date Time Temp Pulse Resp B/P (MAP) Pulse Ox O2 Delivery O2 Flow Rate FiO2 09/26/17 11:52 98.1 84 20 134/76 95 Room Air 09/26/17 09:17 139/78 09/26/17 09:17 98 139/78 09/26/17 08:00 98.4 98 20 139/78 93 Room Air 09/26/17 04:41 98.4 74 20 119/60 98 Room Air 09/26/17 04:00 98 09/26/17 01:00 97.7 84 18 124/66 94 Room Air 09/26/17 00:00 89 09/25/17 20:48 97.9 90 18 137/73 Room Air 09/25/17 20:40 82 124/78 09/25/17 20:00 95 09/25/17 16:00 99.5 84 20 124/78 Room Air 09/25/17 16:00 82 Intake and Output 09/25/17 09/26/17 19:00 07:00 Intake Total 700 ml Output Total 800 ml 300 ml Balance -100 ml -300 ml Intake Oral 700 ml Output Urine Total 800 ml 300 ml Laboratory Tests Test 09/26/17 08:55 White Blood Count 7.1 K/UL (4.8-10.8) Red Blood Count 4.48 M/UL (4.70-6.10) L Hemoglobin 8.8 G/DL (14.2-18.0) L Hematocrit 31.5 % (42.0-52.0) L Mean Corpuscular Volume 70 FL (80-99) L Mean Corpuscular Hemoglobin 19.7 PG (27.0-31.0) L Mean Corpuscular Hemoglobin Concent 27.9 G/DL (32.0-36.0) L Red Cell Distribution Width 25.8 % (11.6-14.8) H Platelet Count 196 K/UL (150-450) Mean Platelet Volume 5.4 FL (6.5-10.1) L Neutrophils (%) (Auto) 72.0 % (45.0-75.0) Lymphocytes (%) (Auto) 12.4 % (20.0-45.0) L Monocytes (%) (Auto) 9.6 % (1.0-10.0) Eosinophils (%) (Auto) 4.9 % (0.0-3.0) H Basophils (%) (Auto) 1.1 % (0.0-2.0) Sodium Level 136 MMOL/L (136-145) Potassium Level 3.9 MMOL/L (3.5-5.1) Chloride Level 103 MMOL/L (98-107) Carbon Dioxide Level 29 MMOL/L (21-32) Anion Gap 4 mmol/L (5-15) L Blood Urea Nitrogen 13 mg/dL (7-18) Creatinine 1.2 MG/DL (0.55-1.30) Estimat Glomerular Filtration Rate mL/min (>60) Glucose Level 187 MG/DL (74-106) H Calcium Level 7.6 MG/DL (8.5-10.1) L Total Bilirubin 0.9 MG/DL (0.2-1.0) Aspartate Amino Transf (AST/SGOT) 27 U/L (15-37) Alanine Aminotransferase (ALT/SGPT) 30 U/L (12-78) Alkaline Phosphatase 48 U/L (46-116) Total Protein 7.4 G/DL (6.4-8.2) Albumin 3.1 G/DL (3.4-5.0) L Globulin 4.3 g/dL Albumin/Globulin Ratio 0.7 (1.0-2.7) L Height (Feet): 5 Height (Inches): 8.00 Weight (Pounds): 215 General Appearance: WD/WN, no apparent distress, alert Cardiovascular: normal rate Respiratory/Chest: normal breath sounds, no respiratory distress Abdominal Exam: normal bowel sounds, non tender, soft Extremities: normal range of motion, non-tender Objective OOB eating with daughter Kerry Daniel Ezequiel Morrison Sep 26, 2017 13:25
--- NOTE | 2017-09-26 14:24 | Nephrology Progress Note ---
Assessment/Plan Problem List: (1) Diabetes (2) Hypertension (3) Anemia (4) Renal insufficiency Assessment Abnormal Cr 1.5 now wnl Abnormal lytes: Low Mag-Low Na- correcting Low K was on Lasix and HCTZ Severe Anemia on Iron HTN stable DM on insulin Plan Plan: off Diuretics- Metformin- Adjust BP meds K supp. Transfuse IV Iron Monitor renal parameters and lytes Urine studies per orders stable from renal stand Subjective ROS Limited/Unobtainable: No Constitutional: Reports: malaise Objective Objective Last 24 Hour Vital Signs Date Time Temp Pulse Resp B/P (MAP) Pulse Ox O2 Delivery O2 Flow Rate FiO2 09/26/17 12:00 87 09/26/17 11:52 98.1 84 20 134/76 95 Room Air 09/26/17 09:17 139/78 09/26/17 09:17 98 139/78 09/26/17 08:00 94 09/26/17 08:00 98.4 98 20 139/78 93 Room Air 09/26/17 04:41 98.4 74 20 119/60 98 Room Air 09/26/17 04:00 98 09/26/17 01:00 97.7 84 18 124/66 94 Room Air 09/26/17 00:00 89 09/25/17 20:48 97.9 90 18 137/73 Room Air 09/25/17 20:40 82 124/78 09/25/17 20:00 95 09/25/17 16:00 99.5 84 20 124/78 Room Air 09/25/17 16:00 82 Intake and Output 09/25/17 09/26/17 19:00 07:00 Intake Total 700 ml Output Total 800 ml 300 ml Balance -100 ml -300 ml Intake Oral 700 ml Output Urine Total 800 ml 300 ml Laboratory Tests 09/26/17 08:55: White Blood Count 7.1, Red Blood Count 4.48L, Hemoglobin 8.8L, Hematocrit 31.5L , Mean Corpuscular Volume 70L, Mean Corpuscular Hemoglobin 19.7L, Mean Corpuscular Hemoglobin Concent 27.9L, Red Cell Distribution Width 25.8H, Platelet Count 196, Mean Platelet Volume 5.4L, Neutrophils (%) (Auto) 72.0, Lymphocytes (%) (Auto) 12.4L, Monocytes (%) (Auto) 9.6, Eosinophils (%) (Auto) 4.9H, Basophils (%) (Auto) 1.1, Sodium Level 136, Potassium Level 3.9, Chloride Level 103, Carbon Dioxide Level 29, Anion Gap 4L, Blood Urea Nitrogen 13, Creatinine 1.2, Estimat Glomerular Filtration Rate , Glucose Level 187H, Calcium Level 7.6L, Total Bilirubin 0.9, Aspartate Amino Transf (AST/SGOT) 27, Alanine Aminotransferase (ALT/SGPT) 30, Alkaline Phosphatase 48, Total Protein 7.4, Albumin 3.1L, Globulin 4.3, Albumin/Globulin Ratio 0.7L Height (Feet): 5 Height (Inches): 8.00 Weight (Pounds): 215 General Appearance: no apparent distress Objective PE not changed EDLA FARMER Sep 26, 2017 14:24
--- NOTE | 2017-09-27 00:31 | Cardiology Report ---
APPROVED REPORT EKG Measurement Heart [id number] QTc0 No QRS complexes found, no ECG analysis possible
--- NOTE | 2017-10-01 14:29 | Discharge Summary ---
Discharge Summary Hospital Course Date of Admission Sep 21, 2017 at 13:45 Date of Discharge Sep 26, 2017 at 14:30 Admitting Diagnosis anemia, generalized weakness HPI Nik Mcbride is a 76 year old male who was admitted on Sep 21, 2017 at 13:45 for Anemia, Geralized Weakness Hospital Course dc summary #[id number] Discharge Medications Continued Medications: Albuterol Sulfate (Proventil Hfa) 6.7 Gm Hfa.aer.ad 6.7 GM IH PRN for Shortness of Breath Amlodipine Besylate (Norvasc) 10 Mg Tablet 10 MG ORAL DAILY, TAB Aspirin* (Aspir 81*) 81 Mg Tablet.dr 81 MG ORAL DAILY, TAB Cetirizine Hcl* (Zyrtec*) 10 Mg Tablet 10 MG ORAL DAILY, #30 TAB 0 Refills Doxazosin Mesylate (Doxazosin Mesylate) 2 Mg Tablet 4 MG ORAL QHS, TAB Furosemide* (Lasix*) 40 Mg Tablet 40 MG ORAL DAILY, TAB Hum Insulin Nph/Reg Insulin Hm (Humulin 70-30 Vial) 100 Unit/1 Ml Vial 30 UNITS SUBQ ACBREAKFAST, VIAL Hum Insulin Nph/Reg Insulin Hm (Humulin 70-30 Vial) 100 Unit/1 Ml Vial 20 UNITS SUBQ QHS, VIAL Hydrochlorothiazide* (Hydrochlorothiazide*) 25 Mg Tablet 25 MG ORAL DAILY, TAB Losartan Potassium (Losartan Potassium) 100 Mg Tablet 100 MG ORAL DAILY, TAB Metformin Hcl* (Metformin Hcl*) 1,000 Mg Tablet 1000 MG ORAL BID, TAB Simvastatin (Zocor) 40 Mg Tablet 40 MG ORAL BEDTIME, TAB Discharge Discharge Disposition Patient was discharged to Home (01) Discharge Diagnoses: Discharge Instructions Discharge Instructions Special Instructions I have been assigned to complete a D/C Summary on this account. I was not involved in the patient management Gloria Villalobos NP ([facility]) Oct 01, 2017 14:29
--- NOTE | 2017-10-01 20:30 | Discharge Summary 2 SIG ---
DATE OF ADMISSION: 09/21/2017 DATE OF DISCHARGE: 09/26/2017 REASON FOR ADMISSION: 76-year-old male with past medical history of hypertension, diabetes, CVA, and anemia, presented to emergency department with generalized weakness and falling episodes. Upon evaluation in the emergency room, the patient was found to have severe anemia, hemoglobin -6.2, hematocrit- 23 with MCV of 61, sodium was 131 and potassium -3.1. Troponin was negative. Pro BNP -169. Urinalysis was negative for evidence of UTI. Lactic acid - 4.0. BUN -26 and creatinine -1.5. The patient was hypotensive -92/54 and tachycardic - 110. The patient was admitted with severe anemia, acute kidney injury and diabetes. HOSPITAL COURSE: The patient was admitted. Nephrology, GI, and Hematology consults were requested. The patient underwent initially transfusion of 2 units of packed red blood cells. Hemoglobin up to 8.6 and hematocrit 29.4. Anemia workup was consistent with iron deficiency anemia. The patient underwent on the previous admission workup with EGD, which found gastritis, small hiatal hernia, and multiple polyps. Biopsy revealed evidence of H pylori.The patient was on the IV Venofer. Hemoglobin and hematocrit were closely followed. The patient underwent additional unit of packed red blood cell transfusion for hemoglobin of 7.9 and hematocrit 27.6. Prior to discharge, hemoglobin- 8.8 and hematocrit -31.5. Stool OB was positive. The patient will follow up as outpatient with GI specialist for small capsule endoscopy and treatment for H pylori. The patient slowly started on diet. Diet was advanced as tolerated. Patient was able to tolerate diet. No evidence of bleeding. Bowel regimen instituted. The patient was started on PPI. Initially, CT of the head was done, which was negative for acute intracranial pathology, but showed evidence of chronic small vessel disease. Chest x-ray revealed no acute cardiopulmonary pathology. Venous duplex of bilateral lower extremities was negative. Fairground Operator closely followed the patient. The patient with initial creatinine of 1.5, likely secondary to diuretic. The patient was on hydrochlorothiazide and Lasix at home. Both of them discontinued along with metformin. Blood sugar was managed with sliding scale of insulin. Renal parameters and electrolytes were closely monitored. Electrolytes corrected as needed. Nephrotoxics were avoided. Prior to discharge, creatinine down to 1.2. Sodium and potassium stable: sodium -136 and potassium -3.9. Magnesium replaced and within normal limits- 1.8. Blood pressure was managed with calcium channel nickie and remained stable. The patient was cleared for discharge home and follow up as outpatient with GI for small capsule endoscopy, treatment for H pylori. FINAL DIAGNOSES: 1. Severe anemia requiring blood transfusion. 2. Iron deficiency anemia. 3. Electrolyte imbalance: hypokalemia, hyponatremia and hypomagnesemia. 4. Acute kidney injury, resolved. 5. Hypertension. 6. Diabetes. 7. Gastritis. DISCHARGE MEDICATIONS: See medication reconciliation list. DISCHARGE INSTRUCTIONS: The patient was discharged home. Follow up with the GI doctor for small capsule endoscopy and treatment fpr H pylori as advised. Follow up with primary medical doctor next week. Aracelis Ervin M.D. I have been assigned to dictate discharge summary on this account and I was not involved in the patient's management. Gloria Thomaschadd N.PParish DR: JOSE JUAN JOB#: [id number] CC: DARRYL
--- NOTE | 2017-10-02 00:07 | Diagnostic Imaging Report ---
APPROVED REPORT CPT Code: 17500 Present Symptoms Lower Extremity Pain: Shortness of breath BILATERAL LOWER EXTREMITY VENOUS DUPLEX: Imaging reveals a patent deep venous system bilaterally. There is no evidence of thrombus within the femoral, popliteal or tibial segments. The greater saphenous veins are also within normal limits. Doppler indicates normal spontaneous flow within these segments. Incidental finding: Bilateral common femoral artery irregular calcified plaque noted.
== END 2017-09-26 14:30 | disposition home health service (06) | DRG 663 ==
LOC: EDBD 12:31 → EDBEDREQ 12:56 → EMR 13:30 → 2E 13:45 → EDBEDREQ 15:08 → 2E 21:00
PROC: 30233N1 Transfusion of Nonautologous Red Blood Cells into Peripheral Vein, Percutaneous Approach (ICD-10-PCS; principal; 2017-09-25)
DX: D50.9 Iron deficiency anemia, unspecified (principal); E87.2 Acidosis; E11.9 Type 2 diabetes mellitus without complications; N39.0 Urinary tract infection, site not specified; E87.6 Hypokalemia; E87.1 Hypo-osmolality and hyponatremia; I10 Essential (primary) hypertension; N28.9 Disorder of kidney and ureter, unspecified; R97.0 Elevated carcinoembryonic antigen [CEA]; E78.5 Hyperlipidemia, unspecified; I25.10 Atherosclerotic heart disease of native coronary artery without angina pectoris; M25.522 Pain in left elbow; Z79.4 Long term (current) use of insulin
CPT/HCPCS: 36415; 36430; 70450; 71010; 80048; 80053; 80061; 81003; 82248; 82270; 82378; 82550; 82553; 82728; 82962; 82977; 83036; 83540; 83550; 83605; 83735; 83880; 84100; 84443; 84484; 84550; 85007; 85025; 85044; 85610; 85730; 86140; 86850; 86900; 86901; 86920; 87040; 90630; 90732; 93005; 93970; 99285; J1815; J8499

== ENCOUNTER 2017-12-03 19:10 | Inpatient (IN) | payer MEDICAID, MEDICARE ==
[~2017-12-03] VITALS: Ht 175.3 cm; Wt 103.4 kg
[~2017-12-03 19:10] MED LIST changes: +FUROSEMIDE40 MG ORAL; +METFORMIN HCL1000 M1 ORAL; +PROVENTIL HFA6.7 G1 IH; +ZYRTEC10 MG ORAL
[2017-12-03] MEDS ORDERED: DOXAZOSIN MESYLA1 MG ORAL (19:18)
[2017-12-03] MEDS ORDERED: METFORMIN HCL500 M1 ORAL (19:18)
[2017-12-03] MEDS ORDERED: FUROSEMIDE20 M1 ORAL (19:18)
[2017-12-03] MEDS ORDERED: HYDROCHLOROTH12.5 M2 ORAL (19:18)
[2017-12-03] MEDS ORDERED: ZANTAC150 MG ORAL (19:18)
[2017-12-03] MEDS ORDERED: AMLODIPINE BES2.5 MG ORAL (19:18)
[2017-12-03] MEDS ORDERED: Ipratropium 0.02% Inh Soln 2.5ml UD HHN ONE (19:45)
[2017-12-03] MEDS ORDERED: Solu-MEDROL 125mg Inj IVP ONE (19:45)
[2017-12-03] MEDS ORDERED: Albuterol ud Inhalation HHN ONE (19:45)
[2017-12-03 19:50] VITALS: BP 122/54
[2017-12-03 20:32] LABS: HEMATOCRIT 28.6 % (42.0-52.0); HEMOGLOBIN 7.9 G/DL (14.2-18.0); MEAN CORPUSCULAR VOLUME 65 FL (80-99); PLATELET COUNT 327 K/UL (150-450); RED BLOOD COUNT 4.41 M/UL (4.70-6.10); RED CELL DISTRIBUTION WIDTH 19.9 % (11.6-14.8)
[2017-12-03 20:36] LABS: BASOPHILS % (AUTO) 1.9 % (0.0-2.0); EOSINOPHILS % (AUTO) 1.3 % (0.0-3.0); LYMPHOCYTES % (AUTO) 18.7 % (20.0-45.0); MONOCYTES % (AUTO) 12.2 % (1.0-10.0); NEUTROPHILS % (AUTO) 65.9 % (45.0-75.0)
[2017-12-03 20:41] LABS: ANION GAP 13 mmol/L (5-15); BLOOD UREA NITROGEN 10 mg/dL (7-18); CALCIUM 9.6 MG/DL (8.5-10.1); CARBON DIOXIDE 25 MMOL/L (21-32); CHLORIDE 94 MMOL/L (98-107); CREATININE 1.3 MG/DL (0.55-1.30); POTASSIUM 4.2 MMOL/L (3.5-5.1); SODIUM 132 MMOL/L (136-145)
[2017-12-03 20:45] LABS: APPEARANCE,URINE CLEAR; BILIRUBIN, URINE 1+ (NEGATIVE); GLUCOSE, URINE (UA) NEGATIVE (NEGATIVE); KETONES,URINE 1+ (NEGATIVE); LEUKOCYTE ESTERASE ,URINE 2+ (NEGATIVE); NITRITE,URINE NEGATIVE (NEGATIVE); PH,URINE 5 (4.5-8.0); PROTEIN,URINE 2+ (NEGATIVE); UROBILINOGEN,URINE 4 MG/DL (0.0-1.0)
[2017-12-03 20:46] LABS: COLOR,URINE YELLOW
[2017-12-03 20:50] VITALS: BP 139/75
[2017-12-03 20:55] LABS: ALANINE AMINOTRANSFERASE 30 U/L (12-78); ALBUMIN 4.2 G/DL (3.4-5.0); ALBUMIN/GLOBULIN RATIO 0.7 (1.0-2.7); ALKALINE PHOSPHATASE 70 U/L (46-116); ASPARTATE AMINO TRANSFERASE 20 U/L (15-37); CKMB 1.3 NG/ML (0.0-3.6); CREATINE KINASE 62 U/L (26-308)
[2017-12-03] MEDS ORDERED: Azithromycin 500 MG in D5W 275 ML IVPB ONE (21:15)
[2017-12-03] MEDS ORDERED: NS 1000ml 2,800 ML IVLG ONE (21:15)
[2017-12-03] MEDS ORDERED: Piperacillin/Tazobactam 3.375 GM in NS 110 ML IVPB ONE (21:15)
[2017-12-03 21:50] VITALS: BP 122/74
[2017-12-03 22:50] VITALS: BP 115/71
--- NOTE | 2017-12-03 23:22 | Emergency Room Report ---
History of Present Illness General Chief Complaint: Dyspnea/Respdistress Source: Patient, EMS Present Illness HPI 77-year-old male presents ED for evaluation. Patient brought in by EMS for shortness of breath. Short of breath at home x2 days. O2 sats low. With wheezing. EMS provided breathing treatments. Patient states he is breathing better. Normally on home oxygen but states he is having increased trouble breathing for the last 2 days. Denies fevers chills. Denies cough. Denies chest pain. No other aggravating relieving factors. Denies any other associated symptoms Allergies: Coded Allergies: No Known Allergies (Unverified , 06/20/14) Patient History Past Medical History: DM, HTN, CVA/TIA Pertinent Family History: none Social History: Denies: smoking, alcohol use, drug use Immunizations: UTD Reviewed Nursing Documentation: PMH: Agreed, PSxH: Agreed Nursing Documentation-PMH Hx Cardiac Problems: Yes Hx Hypertension: Yes Hx Diabetes: Yes Hx Cancer: No Hx Neurological Problems: Yes Hx Cerebrovascular Accident: Yes Review of Systems All Other Systems: negative except mentioned in HPI Physical Exam Vital Signs Date Time Temp Pulse Resp B/P (MAP) Pulse Ox O2 Delivery O2 Flow Rate FiO2 12/03/17 19:09 98.3 105 20 170/86 96 Room Air 98.2 12/03/17 19:43 4.0 Sp02 EP Interpretation: reviewed, normal General Appearance: no apparent distress, alert, GCS 15, non-toxic Head: normocephalic, atraumatic Eyes: bilateral eye normal inspection, bilateral eye PERRL ENT: hearing grossly normal, normal pharynx, no angioedema, normal voice Neck: full range of motion, supple/symm/no masses Respiratory: chest non-tender, decreased breath sounds, crackles, speaking full sentences Cardiovascular #1: regular rate, rhythm, no edema Cardiovascular #2: 2+ carotid (R), 2+ carotid (L), 2+ radial (R), 2+ radial (L) , 2+ dorsalis pedis (R), 2+ dorsalis pedis (L) Gastrointestinal: normal bowel sounds, non tender, soft, non-distended, no guarding, no rebound Rectal: deferred Genitourinary: normal inspection, no CVA tenderness Musculoskeletal: back normal, gait/station normal, normal range of motion, non- tender Neurologic: alert, oriented x3, responsive, motor strength/tone normal, sensory intact, speech normal Psychiatric: judgement/insight normal, memory normal, mood/affect normal, no suicidal/homicidal ideation Reflexes: 3+ bicep (R), 3+ bicep (L), 3+ tricep (R), 3+ tricep (L), 3+ knee (R) , 3+ knee (L) Skin: normal color, no rash, warm/dry, well hydrated Lymphatic: no adenopathy Medical Decision Making Diagnostic Impression: Primary Impression: Pneumonia Qualified Codes: J18.1 - Lobar pneumonia, unspecified organism Additional Impressions: Sepsis Qualified Codes: A41.9 - Sepsis, unspecified organism Anemia Qualified Codes: D64.9 - Anemia, unspecified ER Course Hospital Course 77-year-old M presenting to ED with respiratory distress Differential diagnoses include: Pneumonia, CHF exacerbation, pneumothorax, fluid overload Clinical course Patient placed on stretcher. 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 After initial history and physical, I ordered nebulizer treatments. I ordered labs, IV fluids, EKG, chest x-ray, blood cultures, UA. Patient placed on nasal cannula with O2 saturation improving Labs -no leukocytosis, hemoglobin/hematocrit 7.9/28.6, electrolyte okay, lactate > 5 troponins negative CXR - R lobe infiltrate EKG - NSR, no acute ischemic changes interpreted by me Given 30 mL per KG fluid bolus. Given antibiotics Case discussed with Dr. Santiago and he agreed to the patient to his service for further care and support I feel this is a highly complex case requiring extensive working including EKG/ Rhythm strip, Xray/CT/US, Blood/urine lab work, repeat exams while in ED, and administration of strong opiates/narcotics for pain control, admission to hospital or close patient follow up. Diagnosis - pneumonia, sepsis Patient admitted to telemetry in serious condition Labs Test 12/03/17 19:45 12/03/17 22:00 White Blood Count 5.0 K/UL (4.8-10.8) Red Blood Count 4.41 M/UL (4.70-6.10) Hemoglobin 7.9 G/DL (14.2-18.0) Hematocrit 28.6 % (42.0-52.0) Mean Corpuscular Volume 65 FL (80-99) Mean Corpuscular Hemoglobin 18.0 PG (27.0-31.0) Mean Corpuscular Hemoglobin Concent 27.7 G/DL (32.0-36.0) Red Cell Distribution Width 19.9 % (11.6-14.8) Platelet Count 327 K/UL (150-450) Mean Platelet Volume 9.9 FL (6.5-10.1) Neutrophils (%) (Auto) 65.9 % (45.0-75.0) Lymphocytes (%) (Auto) 18.7 % (20.0-45.0) Monocytes (%) (Auto) 12.2 % (1.0-10.0) Eosinophils (%) (Auto) 1.3 % (0.0-3.0) Basophils (%) (Auto) 1.9 % (0.0-2.0) Prothrombin Time 10.8 SEC (9.30-11.50) Prothromb Time International Ratio 1.0 (0.9-1.1) Activated Partial Thromboplast Time 22 SEC (23-33) Urine Color Yellow Urine Appearance Clear Urine pH 5 (4.5-8.0) Urine Specific [place] 1.015 (1.005-1.035) Urine Protein 2+ (NEGATIVE) Urine Glucose (UA) Negative (NEGATIVE) Urine Ketones 1+ (NEGATIVE) Urine Occult Blood Negative (NEGATIVE) Urine Nitrite Negative (NEGATIVE) Urine Bilirubin 1+ (NEGATIVE) Urine Ictotest Urine Urobilinogen 4 MG/DL (0.0-1.0) Urine Leukocyte Esterase 2+ (NEGATIVE) Urine RBC 0-2 /HPF (0 - 0) Urine WBC 5-10 /HPF (0 - 0) Urine Squamous Epithelial Cells Few /LPF (NONE/OCC) Urine Bacteria Occasional /HPF (NONE) Sodium Level 132 MMOL/L (136-145) Potassium Level 4.2 MMOL/L (3.5-5.1) Chloride Level 94 MMOL/L (98-107) Carbon Dioxide Level 25 MMOL/L (21-32) Anion Gap 13 mmol/L (5-15) Blood Urea Nitrogen 10 mg/dL (7-18) Creatinine 1.3 MG/DL (0.55-1.30) Estimat Glomerular Filtration Rate mL/min (>60) Glucose Level 96 MG/DL (74-106) Lactic Acid Level 5.60 mmol/L (0.66-2.22) 5.40 mmol/L (0.66-2.22) Calcium Level 9.6 MG/DL (8.5-10.1) Total Bilirubin 1.0 MG/DL (0.2-1.0) Aspartate Amino Transf (AST/SGOT) 20 U/L (15-37) Alanine Aminotransferase (ALT/SGPT) 30 U/L (12-78) Alkaline Phosphatase 70 U/L (46-116) Total Creatine Kinase 62 U/L (26-308) Creatine Kinase MB 1.3 NG/ML (0.0-3.6) Creatine Kinase MB Relative Index 2.0 Troponin I 0.003 ng/mL (0.000-0.056) Pro-B-Type Natriuretic Peptide 682 pg/mL (0-125) Total Protein 9.8 G/DL (6.4-8.2) Albumin 4.2 G/DL (3.4-5.0) Globulin 5.6 g/dL Albumin/Globulin Ratio 0.7 (1.0-2.7) EKG Diagnostic Results Rate: normal Rhythm: NSR ST Segments: no acute changes ASA given to the pt in ED: No Rhythm Strip Diag. Results EP Interpretation: yes Rhythm: NSR, no PVC's, no ectopy Chest X-Ray Diagnostic Results Chest X-Ray Diagnostic Results : Chest X-Ray Ordered: Yes # of Views/Limited/Complete: 1 View Indication: Shortness of Breath EP Interpretation: Yes Interpretation: no effusion, no pneumothorax, other - R lobe infiltrate Impression: Other - pneumonia Electronically Signed by: Electronically signed by José Sarmiento MD Last Vital Signs Date Time Temp Pulse Resp B/P (MAP) Pulse Ox O2 Delivery O2 Flow Rate FiO2 12/03/17 20:00 108 18 100 Nasal Cannula 3.0 12/03/17 19:50 98.2 122/54 98.2 Status: improved Disposition: ADMITTED INPATIENT Condition: Serious Referrals: NON PHYSICIAN (PCP) JOSÉ SARMIENTO M.D. Dec 03, 2017 23:22
[2017-12-03] MEDS ORDERED: Zosyn 3.375gm inj ONE (23:31)
[2017-12-03] MEDS ORDERED: Azithromycin 500mg Inj IV ONE (23:31)
[2017-12-03 23:50] VITALS: BP 103/64
[2017-12-04] VITALS (7 sets, daily range): BP systolic 116–139; BP diastolic 73–81
[2017-12-04] MEDS ORDERED: Albuterol ud Inhalation HHN PRN (06:00)
[2017-12-04] MEDS: NovoLOG Insulin Flexpen SUBQ SCH ×4 (06:30→20:43)
[2017-12-04] MEDS: Albuterol ud Inhalation HHN SCH ×5 (07:47→23:13)
[2017-12-04] MEDS: cefTRIAXone 1 GM in NS 55 ML IVPB SCH (08:55)
[2017-12-04] MEDS: metFORMIN 500mg tab ORAL SCH ×2 (09:00→17:14)
[2017-12-04] MEDS: Aspirin Baby 81mg ORAL SCH (09:00)
[2017-12-04] MEDS ORDERED: Zolpidem 5mg tab ORAL PRN (09:00)
[2017-12-04] MEDS: Losartan 50mg tab ORAL SCH (09:02)
[2017-12-04] MEDS: Solu-MEDROL 40mg Inj IVP SCH ×2 (09:03→20:46)
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
[2017-12-04] MEDS: D5 1/2NS 1,000 ML IV SCH (09:04)
[2017-12-04] MEDS: Azithromycin 500 MG in NS 275 ML IV SCH (09:04)
[2017-12-04] MEDS: Heparin 5000 units/ml inj SUBQ SCH ×2 (09:23→20:47)
[2017-12-04] MEDS ORDERED: Milk of Magnesia 30ml Ud ORAL PRN (09:30)
[2017-12-04 09:36] LABS: HEMATOCRIT 22.7 % (42.0-52.0); MEAN CORPUSCULAR VOLUME 65 FL (80-99); PLATELET COUNT 235 K/UL (150-450)
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
[2017-12-04 09:51] LABS: ALANINE AMINOTRANSFERASE 24 U/L (12-78); ALBUMIN 3.2 G/DL (3.4-5.0); ALBUMIN/GLOBULIN RATIO 0.8 (1.0-2.7); ALKALINE PHOSPHATASE 52 U/L (46-116); ANION GAP 7 mmol/L (5-15); ASPARTATE AMINO TRANSFERASE 15 U/L (15-37); BILIRUBIN,TOTAL 0.6 MG/DL (0.2-1.0); BLOOD UREA NITROGEN 13 mg/dL (7-18); CALCIUM 8.7 MG/DL (8.5-10.1); CARBON DIOXIDE 25 MMOL/L (21-32); CHLORIDE 100 MMOL/L (98-107); CREATININE 1.2 MG/DL (0.55-1.30); SODIUM 132 MMOL/L (136-145)
[2017-12-04 09:57] LABS: HEMOGLOBIN 6.3 G/DL (14.2-18.0)
[2017-12-04] MEDS: Qvar 40mcg Inhaler 6.8 gm INH SCH ×2 (11:19→19:48)
--- NOTE | 2017-12-04 13:30 | Consultation ---
Consult Note Consult Note DIC # [id number] FRITZ ARANDA M.D. Dec 04, 2017 13:30
[2017-12-04] MEDS ORDERED: D5 1/2NS 1000ml IV ONE (15:42)
[2017-12-04] MEDS ORDERED: NS 275ml ONE (15:42)
[2017-12-04] MEDS ORDERED: Tubing IV Secondary IV ONE (15:42)
--- NOTE | 2017-12-04 16:15 | Consultation ---
DATE OF CONSULTATION: 12/04/2017 PULMONARY CONSULTATION CONSULTING PHYSICIAN: Bry Luu M.D. REFERRING PHYSICIAN: Bry Santiago D.O. HISTORY: The patient is a 77-year-old male, brought in with shortness of breath for the past two days, low oxygen saturation, and wheezing. The patient normally at home with oxygen, but notes increasing difficulty recently. The patient does not have a nebulizer at home. The patient denies any fever or chills. The patient is unclear as to underlying COPD history, presently nonsmoker. PAST MEDICAL HISTORY: Diabetes, hypertension, CVA, and TIA. MEDICATIONS: Reviewed. ALLERGIES: Reviewed. REVIEW OF SYSTEMS: Notable for prior history of CVA, history of diabetes, and history of anemia. PHYSICAL EXAMINATION: GENERAL: A well-developed male, otherwise comfortable. VITAL SIGNS: Blood pressure 135/77, temperature 97, pulse 105, respiratory rate 16, and saturations 98% on 2 liters. HEENT: Negative. NECK: Supple. LUNGS: With moderate air entry overall. CARDIAC: S1 and S2. Regular rate and rhythm. ABDOMEN: Soft and nontender. EXTREMITIES: With some edema overall. NEUROLOGIC: Grossly nonfocal. LABORATORY DATA: Reviewed. IMPRESSION: Anemia, which currently is chronic; lactic acidemia; pneumonia; diabetes; hypertension; cerebrovascular accident per history; concern for pulmonary edema. RECOMMENDATIONS: Empiric antibiotics with Rocephin and vancomycin. IV Solu-Medrol for the next 48 hours. Follow up hemoglobin and hematocrit. Consider transfusion. Follow up x-ray. Follow up EEG. Follow up echocardiogram and stabilize and optimize. Bry Luu M.D. DR: MADDY JOB#: [id number] CC:
[2017-12-04] MEDS: Atorvastatin 20mg tab ORAL SCH (20:46)
--- NOTE | 2017-12-04 21:56 | General Progress Note ---
Assessment/Plan Problem List: (1) Diabetes ICD Codes: E11.9 - Type 2 diabetes mellitus without complications SNOMED: 45032430 (2) Hypertension ICD Codes: I10 - Essential (primary) hypertension SNOMED: 11366630 (3) Renal insufficiency ICD Codes: N28.9 - Disorder of kidney and ureter, unspecified SNOMED: 058091783 (4) Pneumonia ICD Codes: J18.9 - Pneumonia, unspecified organism SNOMED: 692865396 Qualifiers: Qualified Codes: J18.1 - Lobar pneumonia, unspecified organism Assessment/Plan Lactic acid is positive - will DC Metformin start Levemir 30 units qhs start Novolog 10 units ac tid continue NISS Subjective Allergies: Coded Allergies: No Known Allergies (Unverified , 06/20/14) All Systems: reviewed and negative except above Subjective admitted with COPD exacerbation and possible PNA started on IVSM hx of DM on insulin 70/30 as OP Objective Last 24 Hour Vital Signs Date Time Temp Pulse Resp B/P (MAP) Pulse Ox O2 Delivery O2 Flow Rate FiO2 12/04/17 19:58 96 20 98 Nasal Cannula 4.0 36 12/04/17 19:48 Nasal Cannula 4.0 36 12/04/17 19:48 93 Nasal Cannula 4.0 36 12/04/17 19:48 97 20 94 Nasal Cannula 4.0 36 12/04/17 16:00 97.5 102 20 127/73 95 Nasal Cannula 2.0 97.5 12/04/17 16:00 96 12/04/17 15:00 Nasal Cannula 4.0 12/04/17 15:00 Nasal Cannula 4.0 12/04/17 12:00 98.2 98 20 135/76 95 Nasal Cannula 2.0 98.2 12/04/17 12:00 104 12/04/17 09:03 104 139/79 12/04/17 09:02 139/79 12/04/17 08:00 104 12/04/17 08:00 98.1 104 20 139/79 95 Nasal Cannula 2.0 98.1 12/04/17 07:47 103 22 Nasal Cannula 4.0 12/04/17 07:47 103 22 98 Nasal Cannula 4.0 12/04/17 07:47 103 20 98 Nasal Cannula 4.0 12/04/17 04:00 97.0 105 16 135/77 98 Nasal Cannula 2.0 97.0 12/04/17 04:00 109 12/04/17 02:20 98.4 105 16 116/75 98 Nasal Cannula 2.0 98.4 12/04/17 01:50 98.4 107 16 122/78 98 Nasal Cannula 2.0 98.4 12/04/17 00:50 98.4 105 16 116/75 98 Nasal Cannula 2.0 98.4 12/03/17 23:50 98.1 99 18 103/64 96 Nasal Cannula 2.0 98.1 12/03/17 22:50 98.2 102 20 115/71 97 Nasal Cannula 2.0 98.2 Intake and Output 12/03/17 12/04/17 19:00 07:00 Intake Total 3185 ml Output Total 550 ml Balance 2635 ml IV Total 3185 ml Output Urine Total 550 ml # Voids 3 # Bowel Movements 1 Laboratory Tests 12/03/17 22:00: Lactic Acid Level 5.40H 12/04/17 01:20: Lactic Acid Level 5.10H 12/04/17 06:44: Arterial Blood pH 7.319L, Arterial Blood Partial Pressure CO2 43.8, Arterial Blood Partial Pressure O2 71.2L, Arterial Blood HCO3 22.0, Arterial Blood Oxygen Saturation 92.7, Arterial Blood Base Excess -3.8, Patrice Test Positive 12/04/17 09:10: Lactic Acid Level 3.60H, White Blood Count 3.0L, Red Blood Count 3.50L, Hemoglobin 6.3*L, Hematocrit 22.7L, Mean Corpuscular Volume 65L, Mean Corpuscular Hemoglobin 18.1L, Mean Corpuscular Hemoglobin Concent 27.9L, Red Cell Distribution Width 20.0H, Platelet Count 235, Mean Platelet Volume 6.5, Neutrophils (%) (Auto) , Lymphocytes (%) (Auto) , Monocytes (%) (Auto) , Eosinophils (%) (Auto) , Basophils (%) (Auto) , Differential Total Cells Counted 100, Neutrophils % (Manual) 88H, Lymphocytes % (Manual) 11L, Monocytes % (Manual) 1, Eosinophils % (Manual) 0, Basophils % (Manual) 0, Band Neutrophils 0, Platelet Estimate Adequate, Platelet Morphology Normal, Hypochromasia 2+, Anisocytosis 2+, Microcytosis 2+, Reticulocyte Count [Pending] , Sodium Level 132L, Potassium Level 5.0, Chloride Level 100, Carbon Dioxide Level 25, Anion Gap 7, Blood Urea Nitrogen 13, Creatinine 1.2, Estimat Glomerular Filtration Rate , Glucose Level 255#H, Calcium Level 8.7, Ferritin [ Pending], Total Bilirubin 0.6, Aspartate Amino Transf (AST/SGOT) 15, Alanine Aminotransferase (ALT/SGPT) 24, Alkaline Phosphatase 52, Lactate Dehydrogenase [ Pending], Total Protein 7.4, Albumin 3.2L, Globulin 4.2, Albumin/Globulin Ratio 0.8L, Lipase 127, Prostate Specific Antigen [Pending], Vitamin B12 Level [ Pending], Folate [Pending], HIV (1&2) Antibody Rapid [Pending] Height (Feet): 5 Height (Inches): 9.00 Weight (Pounds): 207 General Appearance: no apparent distress EENT: pale conjunctivae Neck: normal alignment Cardiovascular: tachycardia Respiratory/Chest: expiratory wheezing Pelvis: normal external exam Edema: 1+ Arm (L), 1+ Arm (R), 1+ Leg (L), 1+ Leg (R), 1+ Pedal (L), 1+ Pedal ( R), 1+ Generalized Objective Current Medications Medications (Trade) Dose Ordered Sig/Eda Route PRN Reason Start Time Stop Time Status Last Admin Dose Admin Acetaminophen (Tylenol) 650 mg Q4H PRN ORAL Mild Pain/Temp > 100.5 12/04/17 09:30 01/03/18 09:29 Al Hydroxide/Mg Hydroxide (Mylanta) 30 ml Q4H PRN ORAL heartburn 12/04/17 09:30 01/03/18 09:29 Albuterol Sulfate (Proventil) 2.5 mg Q4HRT HHN 12/04/17 07:00 12/09/17 06:59 12/04/17 19:48 Amlodipine Besylate (Norvasc) 10 mg DAILY ORAL 12/04/17 09:00 01/03/18 08:59 12/04/17 09:03 Aspirin (ASA) 81 mg DAILY ORAL 12/04/17 09:00 01/03/18 08:59 12/04/17 09:00 Atorvastatin Calcium (Lipitor) 20 mg BEDTIME ORAL 12/04/17 21:00 01/03/18 20:59 12/04/17 20:46 Azithromycin 500 mg/Sodium Chloride 275 ml @ 275 mls/hr DAILY IV 12/04/17 09:00 12/11/17 08:59 12/04/17 09:04 Beclomethasone Dipropionate (Qvar 40 Inhaler) 1 puff TWICE A DAY INH 12/04/17 09:00 01/03/18 08:59 12/04/17 19:48 Ceftriaxone Sodium 1 gm/ Sodium Chloride 55 ml @ 110 mls/hr DAILY IVPB 12/04/17 09:00 12/11/17 08:59 12/04/17 08:55 Dextrose (Dextrose 50%) STAT PRN IV Hypoglycemia 12/04/17 06:30 01/03/18 06:29 Dextrose/Sodium Chloride 1,000 ml @ 60 mls/hr [id number] IV 12/04/17 09:00 01/03/18 08:59 12/04/17 09:04 Ferrous Sulfate (Feosol) 325 mg THREE TIMES A DAY ORAL 12/04/17 09:00 01/03/18 08:59 12/04/17 17:14 Heparin Sodium (Porcine) (Heparin 5000 units/ml) 5,000 units EVERY 12 HOURS SUBQ 12/04/17 09:00 01/03/18 08:59 12/04/17 20:47 Insulin Aspart (NovoLOG) BEFORE MEALS AND HS SUBQ 12/04/17 06:30 01/03/18 06:29 12/04/17 20:43 Losartan Potassium (Cozaar) 100 mg DAILY ORAL 12/04/17 09:00 01/03/18 08:59 12/04/17 09:02 Magnesium Hydroxide (Mom) 30 ml DAILYPRN PRN ORAL Constipation 12/04/17 09:30 01/03/18 09:29 Metformin HCl (Glucophage) 1,000 mg BID ORAL 12/04/17 09:00 01/03/18 08:59 12/04/17 17:14 Methylprednisolone Sodium Succinate (Solu-MEDROL) 40 mg EVERY 12 HOURS IVP 12/04/17 09:00 01/03/18 08:59 12/04/17 20:46 Pantoprazole (Protonix) 40 mg DAILY ORAL 12/04/17 09:00 01/03/18 08:59 12/04/17 09:01 Zolpidem Tartrate (Ambien) 5 mg HSPRN PRN ORAL Insomnia 12/04/17 09:00 12/11/17 08:59 UVALDO TORRES Dec 04, 2017 21:55
--- NOTE | 2017-12-04 22:45 | Consultation ---
DATE OF CONSULTATION: 12/04/2017 INFECTIOUS DISEASES CONSULTATION CONSULTING PHYSICIAN: Jesus Tarango M.D. REQUESTING PHYSICIAN: Bry Santiago D.O. REASON FOR CONSULTATION: Evaluation of the patient for fever, cough, bronchitis, antibiotic management. HISTORY OF PRESENT ILLNESS: The patient is a 77-year-old male with multiple medical problems who was admitted to this medical center with cough, sputum production, fever. The patient has no vomiting however mentioned having some blood in stool. The patient was found to be anemic, is getting blood transfusion. Infectious Diseases consultation has been requested for further evaluation of the patient and antibiotic management. PAST MEDICAL HISTORY: 1. Hypertension. 2. Bronchitis. 3. Diabetes. 4. History of anemia. 5. History of CVA. MEDICATIONS: Rocephin and Zithromax day #1. ALLERGIES: No known drug allergies. SOCIAL HISTORY: Smoking marijuana. FAMILY HISTORY: Not contributing. PHYSICAL EXAMINATION: VITAL SIGNS: Temperature 98, pulse 86, respiratory rate 18, and blood pressure 135/76. HEENT: No pale conjunctiva. No icterus. NECK: No lymphadenopathy. CHEST: Coarse breathing sounds. HEART: S1 and S2. ABDOMEN: Soft, obese, nontender. EXTREMITIES: No cyanosis. NEUROLOGIC: Awake and alert. LABORATORY AND DIAGNOSTIC DATA: White blood cell is 3, hemoglobin 6.3, platelets 235. UA unremarkable. BUN 13 and creatinine 1.2. ALT, AST, and alkaline phosphatase unremarkable. Sputum culture is pending. Blood culture is pending. Chest x-ray showed interstitial marking of right lung and left lung base associated with bronchial wall thickening. ASSESSMENT: The patient is a 77-year-old male with: 1. Bronchitis. 2. Pneumonia. 3. Rule out influenza. 4. Smoker. 5. Anemia. 6. ? lower gastrointestinal bleed. PLAN: 1. We will continue the patient on Rocephin and Zithromax day #1/5. 2. Monitor CBC. 3. Monitor BMP. 4. Monitor chest x-ray. 5. Monitor cultures (blood and sputum). 6. Influenza screening. 7. Stool for occult blood. 8. Based on the patient's clinical course and laboratories, we will do further recommendations. Thank you, Dr. Santiago, for allowing me to participate in the care of this patient. I will follow the patient with you during this hospitalization. Jesus Tarango M.D. DR: Brandie JOB#: [id number] CC:
[2017-12-04] MEDS: Levemir Flexpen SUBQ SCH (23:26)
[2017-12-05] VITALS: BP 132/79
[2017-12-05] MEDS: D5 1/2NS 1,000 ML IV SCH ×2 (01:40→12:31)
--- NOTE | 2017-12-05 01:45 | History and Physical Report ---
DATE OF ADMISSION: 12/03/2017 ATTENDING PHYSICIAN: Bry Santiago D.O. CONSULTANTS: 1. Jesus Tarango M.D. 2. Bry Luu M.D. 3. Darin Watts M.D. CHIEF COMPLAINT: Shortness of breath, pneumonia, GI bleed, and anemia. BRIEF HISTORY: This is a 77-year-old male, who lives at home, presents a history of bright red blood per rectum 2 days ago and came to [place] with shortness of breath and diagnosed with pneumonia and anemia and admitted to telemetry for further care. Currently, O2 NC, slightly short of breath in bed. No complaint. REVIEW OF SYSTEMS: No chest pain. Slight shortness of breath. Slight nausea. No vomiting. No diarrhea. PAST MEDICAL HISTORY: Hypertension and diabetes. PAST SURGICAL HISTORY: None. MEDICATIONS: Lipitor, Tylenol, hydroxide, magnesium, ceftriaxone, azithromycin, metformin, amlodipine, beclomethasone, pantoprazole, losartan, and aspirin. ALLERGIES: Denies. SOCIAL HISTORY: He does not smoke. Occasional alcohol. Positive marijuana use. OBJECTIVE: GENERAL: Calm in bed, oriented x3, in no acute distress. VITAL SIGNS: Temperature is 98, pulse 98, respirations 20, blood pressure 135/76. CARDIOVASCULAR: No murmur. LUNGS: Poor exchange. ABDOMEN: Bowel sounds are distant. EXTREMITIES: No cyanosis, clubbing, or edema. NEUROLOGIC: The patient moves all extremities, slightly weak. LABORATORY AND DIAGNOSTIC DATA: White count 3, H and H 6.3/22, platelets are 235. BMP shows sodium 132, glucose is 255, otherwise normal. Albumin 3.2. INR is . Urinalysis, 1+ bilirubin, 1+ ketones, 1+ protein, and 2+ leukocyte esterase. ASSESSMENT: 1. Shortness of breath. 2. Pneumonia. 3. Urinary tract infection. 4. Sepsis. 5. Hypoalbumin. 6. Anemia. 7. Gastrointestinal bleed. 8. Diabetes. 9. Hypertension. 10. Obesity. PLAN: 1. O2 and pulmonary treatment. 2. Antibiotics per Infectious Disease. 3. Blood pressure and blood sugar control. 4. Dietary followup. 5. Transfuse as needed. 6. Resume home medications. 7. CBC and BMP in the morning. 8. Dr. Tarango, Dr. Luu, Dr. Watts, Dr. Fountain, and Dr. Schafer to consult. 9. We will continue to follow this patient. Bry Santiago D.O. DR: FERN JOB#: [id number] CC:
[2017-12-05] MEDS: Albuterol ud Inhalation HHN SCH ×6 (03:44→23:21)
[2017-12-05 04:00] VITALS: BP 122/63
[2017-12-05] MEDS: NovoLOG Insulin Flexpen SUBQ SCH ×7 (06:05→21:12)
--- NOTE | 2017-12-05 06:30 | Consultation ---
DATE OF CONSULTATION: 12/04/2017 HEMATOLOGY/ONCOLOGY CONSULTATION CONSULTING PHYSICIAN: Houston Fountain M.D. REQUESTING PHYSICIAN: Bry Santiago D.O. REASON FOR CONSULTATION: Evaluation of anemia. IDENTIFICATION DATA: Dear Dr. Bry Santiago, The patient is a pleasant 77-year-old male. I have seen him before with past medical history significant for diabetes mellitus, hypertension, CAD, TIA, with substantial shortness of breath for past several days with decreased oxygenation and wheezing noted on exam, normally is on home oxygen, but notes increased difficulty with using it. He is using nebulizer at home. Denies any fevers, chills, underlying COPD. He is a nonsmoker. The patient noted to be anemic, currently without significant bleeding. Hematology Service was consulted for further evaluation and underlying treatment. PAST MEDICAL HISTORY: Hypertension, CAD, TIA, and diabetes mellitus. MEDICATIONS: Reviewed. ALLERGIES: No known drug allergies. REVIEW OF SYSTEMS: CONSTITUTIONAL: No fevers, chills, or night sweats. SKIN: No rashes, bumps, or itching. HEENT: No headache, hearing or vision changes. BREASTS: No lumps, pain, or discharge. PULMONARY: No cough, sputum, or shortness of breath. GASTROINTESTINAL: No nausea, vomiting, or diarrhea. GENITOURINARY: No dysuria, frequency, or urgency. MUSCULOSKELETAL: No joint swelling, muscle pain, or trauma. PHYSICAL EXAMINATION: VITAL SIGNS: Reviewed. GENERAL: No distress. PULMONARY: Decreased breath sounds. CARDIOVASCULAR: Regular rate. No S3 or S4. ABDOMEN: Soft, nontender, and nondistended. EXTREMITIES: No cyanosis, swelling, or edema. LABORATORY AND DIAGNOSTIC DATA: WBC of 3, hemoglobin 6.3, hematocrit 23, and platelet count 235,000. Life-time summary reviewed. Hemoglobin in the past has been 7.5 to 6.3. Pathology has been reviewed from before. The patient just had a gastric biopsy that showed gastric findings, gastritis. ASSESSMENT AND RECOMMENDATIONS: 1. Anemia. Obtain further workup. In the past, the patient noted to be severely iron deficient. Begin the patient on IV iron. Once laboratories are drawn, consider GI evaluation. The patient most likely has gastrointestinal bleeding. 2. Anemia due to iron deficiency. Begin the patient on iron treatment. Begin the patient on IV iron and continue p.o. iron. 3. Leukopenia. Rule out human immunodeficiency virus and hepatitis. . 4. Mild gastric thickening on prior CAT scan. Closely monitor. 5. Somewhat atrophic liver concerning for cirrhosis on prior CAT scan. 6. Obtain imaging of the liver. I appreciate the consultation. Houston Fountain M.D. DR: Tiffany JOB#: [id number] CC:
--- NOTE | 2017-12-05 07:13 | General Progress Note ---
Assessment/Plan Problem List: (1) HTN (hypertension) ICD Codes: I10 - Essential (primary) hypertension SNOMED: 76713660 (2) UTI (urinary tract infection) ICD Codes: N39.0 - Urinary tract infection, site not specified SNOMED: 32436132 (3) Anemia ICD Codes: D64.9 - Anemia, unspecified SNOMED: 122855811 Qualifiers: Qualified Codes: D64.9 - Anemia, unspecified (4) Sepsis ICD Codes: A41.9 - Sepsis, unspecified organism SNOMED: 99722576 Qualifiers: Qualified Codes: A41.9 - Sepsis, unspecified organism (5) Diabetes ICD Codes: E11.9 - Type 2 diabetes mellitus without complications SNOMED: 63181955 (6) Hypertension ICD Codes: I10 - Essential (primary) hypertension SNOMED: 74700188 (7) Pneumonia ICD Codes: J18.9 - Pneumonia, unspecified organism SNOMED: 007963884 Qualifiers: Qualified Codes: J18.1 - Lobar pneumonia, unspecified organism Status: unchanged Assessment/Plan 02 pulm tx abx transfuse prn gi hem f/u cbc bmp am Subjective Constitutional: Reports: weakness Allergies: Coded Allergies: No Known Allergies (Unverified , 06/20/14) All Systems: reviewed and negative except above Subjective o2nc sleepy in bed Objective Last 24 Hour Vital Signs Date Time Temp Pulse Resp B/P (MAP) Pulse Ox O2 Delivery O2 Flow Rate FiO2 12/05/17 04:00 97.0 101 20 122/63 97 Nasal Cannula 2.0 97.0 12/05/17 04:00 102 12/05/17 03:54 100 20 98 Nasal Cannula 4.0 36 12/05/17 03:44 98 20 97 Nasal Cannula 4.0 36 12/05/17 00:00 98.1 96 20 132/79 96 Nasal Cannula 2.0 98.1 12/05/17 00:00 97 12/04/17 23:21 102 20 97 Nasal Cannula 4.0 36 12/04/17 23:13 96 20 94 Nasal Cannula 4.0 36 12/04/17 20:00 97 12/04/17 20:00 98.0 98 20 129/81 97 Nasal Cannula 2.0 98.0 12/04/17 19:58 96 20 98 Nasal Cannula 4.0 36 12/04/17 19:48 Nasal Cannula 4.0 36 12/04/17 19:48 93 Nasal Cannula 4.0 36 12/04/17 19:48 97 20 94 Nasal Cannula 4.0 36 12/04/17 16:00 97.5 102 20 127/73 95 Nasal Cannula 2.0 97.5 12/04/17 16:00 96 12/04/17 15:00 Nasal Cannula 4.0 12/04/17 15:00 Nasal Cannula 4.0 12/04/17 12:00 98.2 98 20 135/76 95 Nasal Cannula 2.0 98.2 12/04/17 12:00 104 12/04/17 09:03 104 139/79 12/04/17 09:02 139/79 12/04/17 08:00 104 12/04/17 08:00 98.1 104 20 139/79 95 Nasal Cannula 2.0 98.1 12/04/17 07:47 103 22 Nasal Cannula 4.0 12/04/17 07:47 103 22 98 Nasal Cannula 4.0 12/04/17 07:47 103 20 98 Nasal Cannula 4.0 Intake and Output 12/04/17 12/05/17 19:00 07:00 Intake Total 1780 ml Output Total 700 ml 600 ml Balance 1080 ml -600 ml Intake Oral 740 ml IV Total 540 ml Blood Product 500 ml Output Urine Total 700 ml 600 ml Laboratory Tests 12/04/17 09:10: White Blood Count 3.0L, Red Blood Count 3.50L, Hemoglobin 6.3*L, Hematocrit 22.7L, Mean Corpuscular Volume 65L, Mean Corpuscular Hemoglobin 18.1L, Mean Corpuscular Hemoglobin Concent 27.9L, Red Cell Distribution Width 20.0H, Platelet Count 235, Mean Platelet Volume 6.5, Neutrophils (%) (Auto) , Lymphocytes (%) (Auto) , Monocytes (%) (Auto) , Eosinophils (%) (Auto) , Basophils (%) (Auto) , Differential Total Cells Counted 100, Neutrophils % ( Manual) 88H, Lymphocytes % (Manual) 11L, Monocytes % (Manual) 1, Eosinophils % ( Manual) 0, Basophils % (Manual) 0, Band Neutrophils 0, Platelet Estimate Adequate, Platelet Morphology Normal, Hypochromasia 2+, Anisocytosis 2+, Microcytosis 2+, Reticulocyte Count 2.4H, Sodium Level 132L, Potassium Level 5.0 , Chloride Level 100, Carbon Dioxide Level 25, Anion Gap 7, Blood Urea Nitrogen 13, Creatinine 1.2, Estimat Glomerular Filtration Rate , Glucose Level 255#H, Hemoglobin A1c 5.0, Lactic Acid Level 3.60H, Calcium Level 8.7, Ferritin 4L, Total Bilirubin 0.6, Aspartate Amino Transf (AST/SGOT) 15, Alanine Aminotransferase (ALT/SGPT) 24, Alkaline Phosphatase 52, Lactate Dehydrogenase 152, Total Protein 7.4, Albumin 3.2L, Globulin 4.2, Albumin/Globulin Ratio 0.8L , Lipase 127, Prostate Specific Antigen 0.53, Vitamin B12 Level 132L, Folate 14.8, HIV (1&2) Antibody Rapid Negative 12/05/17 05:50: White Blood Count [Pending], Red Blood Count [Pending], Hemoglobin [Pending], Hematocrit [Pending], Mean Corpuscular Volume [Pending], Mean Corpuscular Hemoglobin [Pending], Mean Corpuscular Hemoglobin Concent [Pending], Red Cell Distribution Width [Pending], Platelet Count [Pending], Mean Platelet Volume [ Pending], Neutrophils (%) (Auto) [Pending], Lymphocytes (%) (Auto) [Pending], Monocytes (%) (Auto) [Pending], Eosinophils (%) (Auto) [Pending], Basophils (%) (Auto) [Pending], Sodium Level [Pending], Potassium Level [Pending], Chloride Level [Pending], Carbon Dioxide Level [Pending], Blood Urea Nitrogen [Pending], Creatinine [Pending], Estimat Glomerular Filtration Rate [Pending], Glucose Level [Pending], Calcium Level [Pending], PTT Mixing Study [Pending], APTT Patient/Control Mix [Pending], Mix PTT Incubation Time [Pending], Mix PTT Normal /Saline 1:1 Immediate [Pending], Thrombin Time Normal Plasma [Pending], Fibrinogen [Pending], Iron Level [Pending], Unsaturated Iron Binding [Pending], Methylmalonic Acid [Pending], Hepatitis A IgM Antibody [Pending], Hepatitis B Surface Antigen [Pending], Hepatitis B Core IgM Antibody [Pending], Hepatitis C Antibody [Pending] Height (Feet): 5 Height (Inches): 9.00 Weight (Pounds): 207 General Appearance: lethargic EENT: normal ENT inspection Neck: normal alignment Cardiovascular: normal peripheral pulses, normal rate, regular rhythm Respiratory/Chest: chest wall non-tender, lungs clear, normal breath sounds Abdomen: normal bowel sounds, non tender, soft Extremities: normal inspection Neurologic: motor weakness Skin: normal pigmentation, warm/dry SOLEDAD MORRIS Dec 05, 2017 07:13
[2017-12-05 07:14] LABS: ANION GAP 8 mmol/L (5-15); BLOOD UREA NITROGEN 16 mg/dL (7-18); CALCIUM 8.9 MG/DL (8.5-10.1); CARBON DIOXIDE 25 MMOL/L (21-32); CHLORIDE 100 MMOL/L (98-107); CREATININE 1.2 MG/DL (0.55-1.30); POTASSIUM 4.7 MMOL/L (3.5-5.1); SODIUM 133 MMOL/L (136-145)
[2017-12-05 07:15] LABS: HEMATOCRIT 25.9 % (42.0-52.0); HEMOGLOBIN 7.2 G/DL (14.2-18.0); MEAN CORPUSCULAR VOLUME 69 FL (80-99); PLATELET COUNT 227 K/UL (150-450); RED BLOOD COUNT 3.78 M/UL (4.70-6.10); RED CELL DISTRIBUTION WIDTH 21.8 % (11.6-14.8)
[2017-12-05 07:21] LABS: % IRON SATURATION 2 % (15-50); IRON 9 ug/dL (50-175); TOTAL IRON BINDING CAPACITY 469 ug/dL (250-450)
[2017-12-05] MEDS: Azithromycin 500 MG in NS 275 ML IV SCH (07:57)
[2017-12-05] MEDS: cefTRIAXone 1 GM in NS 55 ML IVPB SCH (07:58)
[2017-12-05] MEDS: Aspirin Baby 81mg ORAL SCH (07:59)
[2017-12-05 08:00] VITALS: BP 112/79
[2017-12-05] MEDS: Solu-MEDROL 40mg Inj IVP SCH ×2 (08:00→21:14)
[2017-12-05] MEDS: Heparin 5000 units/ml inj SUBQ SCH ×2 (08:02→21:08)
[2017-12-05] MEDS: Losartan 50mg tab ORAL SCH (08:06)
[2017-12-05] MEDS ORDERED: Vitamin B12 1000mcg/ml Inj IM ONE (09:15)
--- NOTE | 2017-12-05 11:32 | Cardiology Report ---
APPROVED REPORT EKG Measurement Heart [id number] Sinus tachycardia with 1st degree AV block with premature atrial complexes Otherwise normal ECG
[2017-12-05 12:00] VITALS: BP 126/71
--- NOTE | 2017-12-05 14:02 | Diagnostic Imaging Report ---
Indication:Abdominal pain Technique: Grayscale and duplex Doppler imaging of the abdomen performed. Comparison: None Findings: Liver shows a coarsened echotexture. Liver size is normal. Main portal vein is patent by Doppler examination. CBD measures 3 mm which is normal. There are bilateral renal cysts again noted. There is no hydronephrosis. There is no ascites. Spleen is normal in size. The pancreas not seen well. The aorta also not seen well. The gallbladder is unremarkable. IMPRESSION: Bilateral renal cysts. Coarsened liver echotexture. This is nonspecific. No significant liver nodularity noted on this examination. We note that previous CT 06/16/2017 showed nodular liver surface. Pancreas and aorta are poorly seen on this study
[2017-12-05] MEDS: Qvar 40mcg Inhaler 6.8 gm INH SCH ×2 (14:36→19:58)
[2017-12-05] MEDS ORDERED: Tubing Blood Filter IV ONE (14:58)
[2017-12-05] MEDS ORDERED: Tubing IV Secondary IV ONE (14:58)
[2017-12-05] MEDS ORDERED: NS 275ml ONE (14:58)
--- NOTE | 2017-12-05 15:31 | Pulmonology Progress Note ---
Assessment/Plan Problems: (1) COPD with acute exacerbation (2) Pneumonia (3) HTN (hypertension) Assessment/Plan sinus 96 improving tachycardia at time check sputum on sterids keep in teli, b/o tachycardia check labs in am Subjective ROS Limited/Unobtainable: No Constitutional: Reports: no symptoms HEENT: Repors: no symptoms Respiratory: Reports: no symptoms Cardiovascular: Reports: no symptoms Allergies: Coded Allergies: No Known Allergies (Unverified , 06/20/14) Objective Last 24 Hour Vital Signs Date Time Temp Pulse Resp B/P (MAP) Pulse Ox O2 Delivery O2 Flow Rate FiO2 12/05/17 14:38 95 19 100 Nasal Cannula 4.0 12/05/17 14:37 98 19 100 Nasal Cannula 4.0 12/05/17 12:00 97.5 95 19 126/71 98 Nasal Cannula 2.0 97.5 12/05/17 12:00 94 12/05/17 08:07 95 112/79 12/05/17 08:06 112/79 12/05/17 08:00 100 12/05/17 08:00 97.5 98 20 112/79 98 Nasal Cannula 2.0 97.5 12/05/17 08:00 97 21 100 Nasal Cannula 4.0 12/05/17 07:49 100 Nasal Cannula 4.0 12/05/17 07:49 Nasal Cannula 4.0 12/05/17 07:49 97 22 100 Nasal Cannula 4.0 12/05/17 04:00 97.0 101 20 122/63 97 Nasal Cannula 2.0 97.0 12/05/17 04:00 102 12/05/17 03:54 100 20 98 Nasal Cannula 4.0 36 12/05/17 03:44 98 20 97 Nasal Cannula 4.0 36 12/05/17 00:00 98.1 96 20 132/79 96 Nasal Cannula 2.0 98.1 12/05/17 00:00 97 12/04/17 23:21 102 20 97 Nasal Cannula 4.0 36 12/04/17 23:13 96 20 94 Nasal Cannula 4.0 36 12/04/17 20:00 97 12/04/17 20:00 98.0 98 20 129/81 97 Nasal Cannula 2.0 98.0 12/04/17 19:58 96 20 98 Nasal Cannula 4.0 36 12/04/17 19:48 Nasal Cannula 4.0 36 12/04/17 19:48 93 Nasal Cannula 4.0 36 12/04/17 19:48 97 20 94 Nasal Cannula 4.0 36 12/04/17 16:00 97.5 102 20 127/73 95 Nasal Cannula 2.0 97.5 12/04/17 16:00 96 Intake and Output 12/04/17 12/05/17 19:00 07:00 Intake Total 1780 ml 60 ml Output Total 700 ml 600 ml Balance 1080 ml -540 ml Intake Oral 740 ml IV Total 540 ml 60 ml Blood Product 500 ml Output Urine Total 700 ml 600 ml Objective General Appearance: WD/WN, Lines, tubes and drains: peripheral HEENT: normocephalic, atraumatic Neck: non-tender, normal alignment, supple Respiratory/Chest: chest wall non-tender, loud rhonchi Breasts: no masses Cardiovascular/Chest: normal peripheral pulses, normal rate Abdomen: normal bowel sounds, non tender Genitourinary/Rectal: normal genital exam, normal rectal exam Extremities: normal range of motion, non-tender Skin Exam: normal pigmentation 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, Microbiology Date/Time Source Procedure Growth Status 12/03/17 22:00 Blood Blood Culture - Preliminary NO GROWTH AFTER 24 HOURS Resulted 12/03/17 21:45 Blood Blood Culture - Preliminary NO GROWTH AFTER 24 HOURS Resulted 12/04/17 22:00 Nasopharynx Influenza Types A,B Antigen (BEULAH) - Final Complete Laboratory Tests 12/05/17 05:50: White Blood Count 9.0#, Red Blood Count 3.78L, Hemoglobin 7.2L, Hematocrit 25.9L , Mean Corpuscular Volume 69L, Mean Corpuscular Hemoglobin 18.9L, Mean Corpuscular Hemoglobin Concent 27.6L, Red Cell Distribution Width 21.8H, Platelet Count 227, Mean Platelet Volume 6.9, Neutrophils (%) (Auto) , Lymphocytes (%) (Auto) , Monocytes (%) (Auto) , Eosinophils (%) (Auto) , Basophils (%) (Auto) , Differential Total Cells Counted 100, Neutrophils % ( Manual) 91H, Lymphocytes % (Manual) 8L, Monocytes % (Manual) 1, Eosinophils % ( Manual) 0, Basophils % (Manual) 0, Band Neutrophils 0, Platelet Estimate Adequate, Platelet Morphology Normal, Polychromasia 1+, Hypochromasia 2+, Anisocytosis 2+, Microcytosis 2+, PTT Mixing Study [Pending], APTT Patient/ Control Mix [Pending], Mix PTT Incubation Time [Pending], Mix PTT Normal/Saline 1:1 Immediate [Pending], Thrombin Time Normal Plasma [Pending], Fibrinogen 262, Sodium Level 133L, Potassium Level 4.7, Chloride Level 100, Carbon Dioxide Level 25, Anion Gap 8, Blood Urea Nitrogen 16, Creatinine 1.2, Estimat Glomerular Filtration Rate , Glucose Level 179H, Calcium Level 8.9, Iron Level 9L, Total Iron Binding Capacity 469H, Percent Iron Saturation 2L, Unsaturated Iron Binding 460H, Methylmalonic Acid [Pending], Hepatitis A IgM Antibody [ Pending], Hepatitis B Surface Antigen [Pending], Hepatitis B Core IgM Antibody [ Pending], Hepatitis C Antibody [Pending] Current Medications Medications (Trade) Dose Ordered Sig/Eda Route PRN Reason Start Time Stop Time Status Last Admin Dose Admin Acetaminophen (Tylenol) 650 mg Q4H PRN ORAL Mild Pain/Temp > 100.5 12/04/17 09:30 01/03/18 09:29 Al Hydroxide/Mg Hydroxide (Mylanta) 30 ml Q4H PRN ORAL heartburn 12/04/17 09:30 01/03/18 09:29 Albuterol Sulfate (Proventil) 2.5 mg Q4HRT HHN 12/04/17 07:00 12/09/17 06:59 12/05/17 14:36 Amlodipine Besylate (Norvasc) 10 mg DAILY ORAL 12/04/17 09:00 01/03/18 08:59 12/05/17 08:07 Aspirin (ASA) 81 mg DAILY ORAL 12/04/17 09:00 01/03/18 08:59 12/05/17 07:59 Atorvastatin Calcium (Lipitor) 20 mg BEDTIME ORAL 12/04/17 21:00 01/03/18 20:59 12/04/17 20:46 Azithromycin 500 mg/Sodium Chloride 275 ml @ 275 mls/hr DAILY IV 12/04/17 09:00 12/11/17 08:59 12/05/17 07:57 Beclomethasone Dipropionate (Qvar 40 Inhaler) 1 puff TWICE A DAY INH 12/04/17 09:00 01/03/18 08:59 12/05/17 14:36 Ceftriaxone Sodium 1 gm/ Sodium Chloride 55 ml @ 110 mls/hr DAILY IVPB 12/04/17 09:00 12/11/17 08:59 12/05/17 07:58 Dextrose (Dextrose 50%) STAT PRN IV Hypoglycemia 12/04/17 06:30 01/03/18 06:29 Dextrose (Dextrose 50%) STAT PRN IV Hypoglycemia 12/04/17 22:00 01/03/18 21:59 Dextrose/Sodium Chloride 1,000 ml @ 60 mls/hr [id number] IV 12/04/17 09:00 01/03/18 08:59 12/05/17 12:31 Ferrous Sulfate (Feosol) 325 mg THREE TIMES A DAY ORAL 12/04/17 09:00 01/03/18 08:59 12/04/17 17:14 Heparin Sodium (Porcine) (Heparin 5000 units/ml) 5,000 units EVERY 12 HOURS SUBQ 12/04/17 09:00 01/03/18 08:59 12/05/17 08:02 Insulin Aspart (NovoLOG) BEFORE MEALS AND HS SUBQ 12/04/17 06:30 01/03/18 06:29 12/05/17 06:05 Insulin Aspart (NovoLOG) 10 units NOVOTIAC SUBQ 12/05/17 06:30 01/04/18 06:29 12/05/17 06:07 Insulin Detemir (Levemir) 30 units BEDTIME SUBQ 12/04/17 22:00 01/03/18 21:59 12/04/17 23:26 Iron Sucrose 100 mg/Sodium Chloride 60 ml @ 240 mls/hr BEDTIME IV 12/05/17 21:00 12/09/17 21:14 Losartan Potassium (Cozaar) 100 mg DAILY ORAL 12/04/17 09:00 01/03/18 08:59 12/05/17 08:06 Magnesium Hydroxide (Mom) 30 ml DAILYPRN PRN ORAL Constipation 12/04/17 09:30 01/03/18 09:29 Methylprednisolone Sodium Succinate (Solu-MEDROL) 40 mg EVERY 12 HOURS IVP 12/04/17 09:00 01/03/18 08:59 12/05/17 08:00 Pantoprazole (Protonix) 40 mg DAILY ORAL 12/04/17 09:00 01/03/18 08:59 12/05/17 07:59 Zolpidem Tartrate (Ambien) 5 mg HSPRN PRN ORAL Insomnia 12/04/17 09:00 12/11/17 08:59 FATOUMATA BUCHANAN Dec 05, 2017 15:31
--- NOTE | 2017-12-05 15:38 | Infectious Diseases Prog Note ---
Assessment/Plan Assessment/Plan ASSESSMENT: The patient is a 77-year-old male with: Bronchitis Pneumonia. Chest x-ray: Interstitial marking of right lung and left lung base associated with bronchial wall thickening. Influenza screening.: Neg Smoker. Anemia. ? lower gastrointestinal bleed U S: Coarsened liver echotexture Hypertension Bronchitis Diabetes History of CVA PLAN: continue the patient on Rocephin and Zithromax day # 2 /5 Monitor CBC. Monitor BMP. Monitor chest x-ray. Monitor cultures (blood and sputum). Stool for occult blood. Hem following Rec GI cons Subjective Constitutional: Denies: no symptoms, fever, chills, fatigue, anorexia, drenching sweats, other Allergies: Coded Allergies: No Known Allergies (Unverified , 06/20/14) Objective Vital Signs Last 24 Hour Vital Signs Date Time Temp Pulse Resp B/P (MAP) Pulse Ox O2 Delivery O2 Flow Rate FiO2 12/05/17 14:38 95 19 100 Nasal Cannula 4.0 12/05/17 14:37 98 19 100 Nasal Cannula 4.0 12/05/17 12:00 97.5 95 19 126/71 98 Nasal Cannula 2.0 97.5 12/05/17 12:00 94 12/05/17 08:07 95 112/79 12/05/17 08:06 112/79 12/05/17 08:00 100 12/05/17 08:00 97.5 98 20 112/79 98 Nasal Cannula 2.0 97.5 12/05/17 08:00 97 21 100 Nasal Cannula 4.0 12/05/17 07:49 100 Nasal Cannula 4.0 12/05/17 07:49 Nasal Cannula 4.0 12/05/17 07:49 97 22 100 Nasal Cannula 4.0 12/05/17 04:00 97.0 101 20 122/63 97 Nasal Cannula 2.0 97.0 12/05/17 04:00 102 12/05/17 03:54 100 20 98 Nasal Cannula 4.0 36 12/05/17 03:44 98 20 97 Nasal Cannula 4.0 36 12/05/17 00:00 98.1 96 20 132/79 96 Nasal Cannula 2.0 98.1 12/05/17 00:00 97 12/04/17 23:21 102 20 97 Nasal Cannula 4.0 36 12/04/17 23:13 96 20 94 Nasal Cannula 4.0 36 12/04/17 20:00 97 12/04/17 20:00 98.0 98 20 129/81 97 Nasal Cannula 2.0 98.0 12/04/17 19:58 96 20 98 Nasal Cannula 4.0 36 12/04/17 19:48 Nasal Cannula 4.0 36 12/04/17 19:48 93 Nasal Cannula 4.0 36 12/04/17 19:48 97 20 94 Nasal Cannula 4.0 36 12/04/17 16:00 97.5 102 20 127/73 95 Nasal Cannula 2.0 97.5 12/04/17 16:00 96 Height (Feet): 5 Height (Inches): 9.00 Weight (Pounds): 207 HEENT: mucous membranes moist Respiratory/Chest: no respiratory distress Cardiovascular: no JVD Abdomen: no mass Microbiology Date/Time Source Procedure Growth Status 12/03/17 22:00 Blood Blood Culture - Preliminary NO GROWTH AFTER 24 HOURS Resulted 12/03/17 21:45 Blood Blood Culture - Preliminary NO GROWTH AFTER 24 HOURS Resulted 12/04/17 22:00 Nasopharynx Influenza Types A,B Antigen (BEULAH) - Final Complete Laboratory Tests Test 12/05/17 05:50 White Blood Count 9.0 K/UL (4.8-10.8) # Red Blood Count 3.78 M/UL (4.70-6.10) L Hemoglobin 7.2 G/DL (14.2-18.0) L Hematocrit 25.9 % (42.0-52.0) L Mean Corpuscular Volume 69 FL (80-99) L Mean Corpuscular Hemoglobin 18.9 PG (27.0-31.0) L Mean Corpuscular Hemoglobin Concent 27.6 G/DL (32.0-36.0) L Red Cell Distribution Width 21.8 % (11.6-14.8) H Platelet Count 227 K/UL (150-450) Mean Platelet Volume 6.9 FL (6.5-10.1) Neutrophils (%) (Auto) % (45.0-75.0) Lymphocytes (%) (Auto) % (20.0-45.0) Monocytes (%) (Auto) % (1.0-10.0) Eosinophils (%) (Auto) % (0.0-3.0) Basophils (%) (Auto) % (0.0-2.0) Differential Total Cells Counted 100 Neutrophils % (Manual) 91 % (45-75) H Lymphocytes % (Manual) 8 % (20-45) L Monocytes % (Manual) 1 % (1-10) Eosinophils % (Manual) 0 % (0-3) Basophils % (Manual) 0 % (0-2) Band Neutrophils 0 % (0-8) Platelet Estimate Adequate Platelet Morphology Normal Polychromasia 1+ Hypochromasia 2+ Anisocytosis 2+ Microcytosis 2+ PTT Mixing Study Pending APTT Patient/Control Mix Pending Mix PTT Incubation Time Pending Mix PTT Normal/Saline 1:1 Immediate Pending Thrombin Time Normal Plasma Pending Fibrinogen 262 mg/dL (200-400) Sodium Level 133 MMOL/L (136-145) L Potassium Level 4.7 MMOL/L (3.5-5.1) Chloride Level 100 MMOL/L (98-107) Carbon Dioxide Level 25 MMOL/L (21-32) Anion Gap 8 mmol/L (5-15) Blood Urea Nitrogen 16 mg/dL (7-18) Creatinine 1.2 MG/DL (0.55-1.30) Estimat Glomerular Filtration Rate mL/min (>60) Glucose Level 179 MG/DL (74-106) H Calcium Level 8.9 MG/DL (8.5-10.1) Iron Level 9 ug/dL (50-175) L Total Iron Binding Capacity 469 ug/dL (250-450) H Percent Iron Saturation 2 % (15-50) L Unsaturated Iron Binding 460 ug/dL (112-346) H Methylmalonic Acid Pending Hepatitis A IgM Antibody Pending Hepatitis B Surface Antigen Pending Hepatitis B Core IgM Antibody Pending Hepatitis C Antibody Pending Current Medications Medications (Trade) Dose Ordered Sig/Eda Route PRN Reason Start Time Stop Time Status Last Admin Dose Admin Acetaminophen (Tylenol) 650 mg Q4H PRN ORAL Mild Pain/Temp > 100.5 12/04/17 09:30 01/03/18 09:29 Al Hydroxide/Mg Hydroxide (Mylanta) 30 ml Q4H PRN ORAL heartburn 12/04/17 09:30 01/03/18 09:29 Albuterol Sulfate (Proventil) 2.5 mg Q4HRT HHN 12/04/17 07:00 12/09/17 06:59 12/05/17 14:36 Amlodipine Besylate (Norvasc) 10 mg DAILY ORAL 12/04/17 09:00 01/03/18 08:59 12/05/17 08:07 Aspirin (ASA) 81 mg DAILY ORAL 12/04/17 09:00 01/03/18 08:59 12/05/17 07:59 Atorvastatin Calcium (Lipitor) 20 mg BEDTIME ORAL 12/04/17 21:00 01/03/18 20:59 12/04/17 20:46 Azithromycin 500 mg/Sodium Chloride 275 ml @ 275 mls/hr DAILY IV 12/04/17 09:00 12/11/17 08:59 12/05/17 07:57 Beclomethasone Dipropionate (Qvar 40 Inhaler) 1 puff TWICE A DAY INH 12/04/17 09:00 01/03/18 08:59 12/05/17 14:36 Ceftriaxone Sodium 1 gm/ Sodium Chloride 55 ml @ 110 mls/hr DAILY IVPB 12/04/17 09:00 12/11/17 08:59 12/05/17 07:58 Dextrose (Dextrose 50%) STAT PRN IV Hypoglycemia 12/04/17 06:30 01/03/18 06:29 Dextrose (Dextrose 50%) STAT PRN IV Hypoglycemia 12/04/17 22:00 01/03/18 21:59 Dextrose/Sodium Chloride 1,000 ml @ 60 mls/hr [id number] IV 12/04/17 09:00 01/03/18 08:59 12/05/17 12:31 Ferrous Sulfate (Feosol) 325 mg THREE TIMES A DAY ORAL 12/04/17 09:00 01/03/18 08:59 12/04/17 17:14 Heparin Sodium (Porcine) (Heparin 5000 units/ml) 5,000 units EVERY 12 HOURS SUBQ 12/04/17 09:00 01/03/18 08:59 12/05/17 08:02 Insulin Aspart (NovoLOG) BEFORE MEALS AND HS SUBQ 12/04/17 06:30 01/03/18 06:29 12/05/17 06:05 Insulin Aspart (NovoLOG) 10 units NOVOTIAC SUBQ 12/05/17 06:30 01/04/18 06:29 12/05/17 06:07 Insulin Detemir (Levemir) 30 units BEDTIME SUBQ 12/04/17 22:00 01/03/18 21:59 12/04/17 23:26 Iron Sucrose 100 mg/Sodium Chloride 60 ml @ 240 mls/hr BEDTIME IV 12/05/17 21:00 12/09/17 21:14 Losartan Potassium (Cozaar) 100 mg DAILY ORAL 12/04/17 09:00 01/03/18 08:59 12/05/17 08:06 Magnesium Hydroxide (Mom) 30 ml DAILYPRN PRN ORAL Constipation 12/04/17 09:30 01/03/18 09:29 Methylprednisolone Sodium Succinate (Solu-MEDROL) 40 mg EVERY 12 HOURS IVP 12/04/17 09:00 01/03/18 08:59 12/05/17 08:00 Pantoprazole (Protonix) 40 mg DAILY ORAL 12/04/17 09:00 01/03/18 08:59 12/05/17 07:59 Zolpidem Tartrate (Ambien) 5 mg HSPRN PRN ORAL Insomnia 12/04/17 09:00 12/11/17 08:59 FRITZ ARANDA M.D. Dec 05, 2017 15:38
[2017-12-05 16:00] VITALS: BP 140/81
--- NOTE | 2017-12-05 16:12 | General Progress Note ---
Assessment/Plan Problem List: (1) Diabetes ICD Codes: E11.9 - Type 2 diabetes mellitus without complications SNOMED: 81174190 (2) Hypertension ICD Codes: I10 - Essential (primary) hypertension SNOMED: 77896862 (3) Renal insufficiency ICD Codes: N28.9 - Disorder of kidney and ureter, unspecified SNOMED: 599705318 (4) Pneumonia ICD Codes: J18.9 - Pneumonia, unspecified organism SNOMED: 715886148 Qualifiers: Qualified Codes: J18.1 - Lobar pneumonia, unspecified organism Assessment/Plan continue Levemir 30 units qhs reduce Novolog 10 to 7 units ac tid continue NISS Subjective Allergies: Coded Allergies: No Known Allergies (Unverified , 06/20/14) All Systems: reviewed and negative except above Subjective events noted feeling better Objective Last 24 Hour Vital Signs Date Time Temp Pulse Resp B/P (MAP) Pulse Ox O2 Delivery O2 Flow Rate FiO2 12/05/17 14:38 95 19 100 Nasal Cannula 4.0 12/05/17 14:37 98 19 100 Nasal Cannula 4.0 12/05/17 12:00 97.5 95 19 126/71 98 Nasal Cannula 2.0 97.5 12/05/17 12:00 94 12/05/17 08:07 95 112/79 12/05/17 08:06 112/79 12/05/17 08:00 100 12/05/17 08:00 97.5 98 20 112/79 98 Nasal Cannula 2.0 97.5 12/05/17 08:00 97 21 100 Nasal Cannula 4.0 12/05/17 07:49 100 Nasal Cannula 4.0 12/05/17 07:49 Nasal Cannula 4.0 12/05/17 07:49 97 22 100 Nasal Cannula 4.0 12/05/17 04:00 97.0 101 20 122/63 97 Nasal Cannula 2.0 97.0 12/05/17 04:00 102 12/05/17 03:54 100 20 98 Nasal Cannula 4.0 36 12/05/17 03:44 98 20 97 Nasal Cannula 4.0 36 12/05/17 00:00 98.1 96 20 132/79 96 Nasal Cannula 2.0 98.1 12/05/17 00:00 97 12/04/17 23:21 102 20 97 Nasal Cannula 4.0 36 12/04/17 23:13 96 20 94 Nasal Cannula 4.0 36 12/04/17 20:00 97 12/04/17 20:00 98.0 98 20 129/81 97 Nasal Cannula 2.0 98.0 12/04/17 19:58 96 20 98 Nasal Cannula 4.0 36 12/04/17 19:48 Nasal Cannula 4.0 36 12/04/17 19:48 93 Nasal Cannula 4.0 36 12/04/17 19:48 97 20 94 Nasal Cannula 4.0 36 Intake and Output 12/04/17 12/05/17 19:00 07:00 Intake Total 1780 ml 60 ml Output Total 700 ml 600 ml Balance 1080 ml -540 ml Intake Oral 740 ml IV Total 540 ml 60 ml Blood Product 500 ml Output Urine Total 700 ml 600 ml Laboratory Tests 12/05/17 05:50: White Blood Count 9.0#, Red Blood Count 3.78L, Hemoglobin 7.2L, Hematocrit 25.9L , Mean Corpuscular Volume 69L, Mean Corpuscular Hemoglobin 18.9L, Mean Corpuscular Hemoglobin Concent 27.6L, Red Cell Distribution Width 21.8H, Platelet Count 227, Mean Platelet Volume 6.9, Neutrophils (%) (Auto) , Lymphocytes (%) (Auto) , Monocytes (%) (Auto) , Eosinophils (%) (Auto) , Basophils (%) (Auto) , Differential Total Cells Counted 100, Neutrophils % ( Manual) 91H, Lymphocytes % (Manual) 8L, Monocytes % (Manual) 1, Eosinophils % ( Manual) 0, Basophils % (Manual) 0, Band Neutrophils 0, Platelet Estimate Adequate, Platelet Morphology Normal, Polychromasia 1+, Hypochromasia 2+, Anisocytosis 2+, Microcytosis 2+, PTT Mixing Study [Pending], APTT Patient/ Control Mix [Pending], Mix PTT Incubation Time [Pending], Mix PTT Normal/Saline 1:1 Immediate [Pending], Thrombin Time Normal Plasma [Pending], Fibrinogen 262, Sodium Level 133L, Potassium Level 4.7, Chloride Level 100, Carbon Dioxide Level 25, Anion Gap 8, Blood Urea Nitrogen 16, Creatinine 1.2, Estimat Glomerular Filtration Rate , Glucose Level 179H, Calcium Level 8.9, Iron Level 9L, Total Iron Binding Capacity 469H, Percent Iron Saturation 2L, Unsaturated Iron Binding 460H, Methylmalonic Acid [Pending], Hepatitis A IgM Antibody [ Pending], Hepatitis B Surface Antigen [Pending], Hepatitis B Core IgM Antibody [ Pending], Hepatitis C Antibody [Pending] Height (Feet): 5 Height (Inches): 9.00 Weight (Pounds): 207 General Appearance: no apparent distress Neck: normal alignment Cardiovascular: normal rate Respiratory/Chest: decreased breath sounds Abdomen: normal bowel sounds Pelvis: normal external exam Edema: no edema noted Arm (L), no edema noted Arm (R), no edema noted Leg (L), no edema noted Leg (R), no edema noted Pedal (L), no edema noted Pedal (R), no edema noted Generalized Objective Current Medications Medications (Trade) Dose Ordered Sig/Eda Route PRN Reason Start Time Stop Time Status Last Admin Dose Admin Acetaminophen (Tylenol) 650 mg Q4H PRN ORAL Mild Pain/Temp > 100.5 12/04/17 09:30 01/03/18 09:29 Al Hydroxide/Mg Hydroxide (Mylanta) 30 ml Q4H PRN ORAL heartburn 12/04/17 09:30 01/03/18 09:29 Albuterol Sulfate (Proventil) 2.5 mg Q4HRT HHN 12/04/17 07:00 12/09/17 06:59 12/05/17 14:36 Amlodipine Besylate (Norvasc) 10 mg DAILY ORAL 12/04/17 09:00 01/03/18 08:59 12/05/17 08:07 Aspirin (ASA) 81 mg DAILY ORAL 12/04/17 09:00 01/03/18 08:59 12/05/17 07:59 Atorvastatin Calcium (Lipitor) 20 mg BEDTIME ORAL 12/04/17 21:00 01/03/18 20:59 12/04/17 20:46 Azithromycin 500 mg/Sodium Chloride 275 ml @ 275 mls/hr DAILY IV 12/04/17 09:00 12/11/17 08:59 12/05/17 07:57 Beclomethasone Dipropionate (Qvar 40 Inhaler) 1 puff TWICE A DAY INH 12/04/17 09:00 01/03/18 08:59 12/05/17 14:36 Ceftriaxone Sodium 1 gm/ Sodium Chloride 55 ml @ 110 mls/hr DAILY IVPB 12/04/17 09:00 12/11/17 08:59 12/05/17 07:58 Dextrose (Dextrose 50%) STAT PRN IV Hypoglycemia 12/04/17 06:30 01/03/18 06:29 Dextrose (Dextrose 50%) STAT PRN IV Hypoglycemia 12/04/17 22:00 01/03/18 21:59 Dextrose/Sodium Chloride 1,000 ml @ 60 mls/hr [id number] IV 12/04/17 09:00 01/03/18 08:59 12/05/17 12:31 Ferrous Sulfate (Feosol) 325 mg THREE TIMES A DAY ORAL 12/04/17 09:00 01/03/18 08:59 12/04/17 17:14 Heparin Sodium (Porcine) (Heparin 5000 units/ml) 5,000 units EVERY 12 HOURS SUBQ 12/04/17 09:00 01/03/18 08:59 12/05/17 08:02 Insulin Aspart (NovoLOG) BEFORE MEALS AND HS SUBQ 12/04/17 06:30 01/03/18 06:29 12/05/17 06:05 Insulin Aspart (NovoLOG) 10 units NOVOTIAC SUBQ 12/05/17 06:30 01/04/18 06:29 12/05/17 06:07 Insulin Detemir (Levemir) 30 units BEDTIME SUBQ 12/04/17 22:00 01/03/18 21:59 12/04/17 23:26 Iron Sucrose 100 mg/Sodium Chloride 60 ml @ 240 mls/hr BEDTIME IV 12/05/17 21:00 12/09/17 21:14 Losartan Potassium (Cozaar) 100 mg DAILY ORAL 12/04/17 09:00 01/03/18 08:59 12/05/17 08:06 Magnesium Hydroxide (Mom) 30 ml DAILYPRN PRN ORAL Constipation 12/04/17 09:30 01/03/18 09:29 Methylprednisolone Sodium Succinate (Solu-MEDROL) 40 mg EVERY 12 HOURS IVP 12/04/17 09:00 01/03/18 08:59 12/05/17 08:00 Pantoprazole (Protonix) 40 mg DAILY ORAL 12/04/17 09:00 01/03/18 08:59 12/05/17 07:59 Zolpidem Tartrate (Ambien) 5 mg HSPRN PRN ORAL Insomnia 12/04/17 09:00 12/11/17 08:59 Item Value Date Time Bedside Blood Glucose 127 mg/dl H 12/05/17 1136 Bedside Blood Glucose 191 mg/dl H 12/05/17 0607 Bedside Blood Glucose 167 mg/dl H 12/04/17 2326 Bedside Blood Glucose 167 mg/dl H 12/04/17 2100 Bedside Blood Glucose 150 mg/dl H 12/04/17 1716 UVALDO TORRES 2, 2018 16:12
[2017-12-05 20:00] VITALS: BP 123/83
[2017-12-05] MEDS: Iron Sucrose 100 MG in NS 55 ML IV SCH (21:13)
[2017-12-05] MEDS: Levemir Flexpen SUBQ SCH (21:13)
[2017-12-05] MEDS: Atorvastatin 20mg tab ORAL SCH (21:14)
[2017-12-06] VITALS: BP 128/63
[2017-12-06] MEDS: Albuterol ud Inhalation HHN SCH ×6 (03:22→23:00)
[2017-12-06 04:00] VITALS: BP 140/82
[2017-12-06] MEDS: NovoLOG Insulin Flexpen SUBQ SCH ×7 (06:37→21:00)
[2017-12-06] MEDS: Solu-MEDROL 40mg Inj IVP SCH ×2 (08:08→21:10)
[2017-12-06] MEDS: Losartan 50mg tab ORAL SCH (08:08)
[2017-12-06] MEDS: Aspirin Baby 81mg ORAL SCH (08:08)
[2017-12-06] MEDS: Azithromycin 500 MG in NS 275 ML IV SCH (08:09)
[2017-12-06 08:10] LABS: HEMATOCRIT 28.5 % (42.0-52.0); HEMOGLOBIN 8.6 G/DL (14.2-18.0); MEAN CORPUSCULAR VOLUME 70 FL (80-99); PLATELET COUNT 253 K/UL (150-450); RED BLOOD COUNT 4.06 M/UL (4.70-6.10); RED CELL DISTRIBUTION WIDTH 21.9 % (11.6-14.8)
[2017-12-06] MEDS: Heparin 5000 units/ml inj SUBQ SCH ×2 (08:12→21:14)
--- NOTE | 2017-12-06 08:13 | Pulmonology Progress Note ---
Assessment/Plan Assessment/Plan ASSESSMENT Acute bronchitis likely PNA Acute COPD exacerbation probably sepsis pulmonary nodules probably lung Ca HTN DM smoker CVA hx ALEXIA acute anemia of blood loss, s/p blood transfusion PLAN OF CARE tele O2 pulm toilet IV steroids and taper Theophylline a/tussive prn abx, fup with cx , influenza negative, blood cx negtaive prelim ID follows HIV test negative BP management with CCB and ARB BS management with premeal Novolog and Levemir and SSI prn, endo follows Anemia w/up c/w ALEXIA on venofer Heme and GI follow Hepatitis panel pending crisis counselor on smoking cessation CXR no acute pathology can be dc from pulmonary standpoint, need iron supplements -per PMD case discussed and evaluated by supervising physician Subjective Allergies: Coded Allergies: No Known Allergies (Unverified , 06/20/14) Subjective denies CP, SOB occasional cough, mainly dry, no hemoptysis Objective Last 24 Hour Vital Signs Date Time Temp Pulse Resp B/P (MAP) Pulse Ox O2 Delivery O2 Flow Rate FiO2 12/06/17 08:09 89 141/79 12/06/17 08:08 141/79 12/06/17 04:00 96.0 95 18 140/82 90 Nasal Cannula 2.0 96.0 12/06/17 04:00 99 12/06/17 03:32 98 14 98 Nasal Cannula 4.0 36 12/06/17 03:21 36 12/06/17 03:21 106 18 92 Nasal Cannula 4.0 36 12/06/17 00:00 106 12/06/17 00:00 96.3 96 16 128/63 96 Nasal Cannula 2.0 96.3 12/05/17 23:32 105 18 99 Nasal Cannula 4.0 36 12/05/17 23:19 106 18 93 Nasal Cannula 4.0 36 12/05/17 23:19 36 12/05/17 20:10 100 16 99 Nasal Cannula 4.0 36 12/05/17 20:09 93 18 99 Nasal Cannula 4.0 36 12/05/17 20:00 97.3 91 16 123/83 95 Nasal Cannula 2.0 97.3 12/05/17 20:00 94 12/05/17 19:56 94 Nasal Cannula 4.0 36 12/05/17 19:56 Nasal Cannula 4.0 36 12/05/17 19:56 98 20 94 Nasal Cannula 4.0 36 12/05/17 19:56 36 12/05/17 16:00 97.0 100 19 140/81 96 Nasal Cannula 2.0 97.0 12/05/17 15:50 99 12/05/17 14:38 95 19 100 Nasal Cannula 4.0 12/05/17 14:37 98 19 100 Nasal Cannula 4.0 12/05/17 12:00 97.5 95 19 126/71 98 Nasal Cannula 2.0 97.5 12/05/17 12:00 94 Intake and Output 12/05/17 12/06/17 19:00 07:00 Intake Total 1370 ml 580 ml Output Total 1075 ml Balance 1370 ml -495 ml Intake Oral 590 ml 400 ml IV Total 780 ml 180 ml Output Urine Total 1075 ml # Voids 5 3 # Bowel Movements 1 General Appearance: no acute distress, other - A/A/O x 3 AA male in NAD HEENT: normocephalic, atraumatic, anicteric, mucous membranes moist Respiratory/Chest: decreased breath sounds Cardiovascular: normal rate, regular rhythm - SR on tele Abdomen: normal bowel sounds, soft, non tender - obese Neurologic/Psychiatric: alert, oriented x 3, responsive Musculoskeletal: normal muscle bulk Microbiology Date/Time Source Procedure Growth Status 12/03/17 22:00 Blood Blood Culture - Preliminary NO GROWTH AFTER 24 HOURS Resulted 12/03/17 21:45 Blood Blood Culture - Preliminary NO GROWTH AFTER 24 HOURS Resulted 12/04/17 22:00 Nasopharynx Influenza Types A,B Antigen (BEULAH) - Final Complete Laboratory Tests 12/06/17 07:22: White Blood Count 11.0H, Red Blood Count 4.06L, Hemoglobin 8.6L, Hematocrit 28.5L, Mean Corpuscular Volume 70L, Mean Corpuscular Hemoglobin 21.2L, Mean Corpuscular Hemoglobin Concent 30.1L, Red Cell Distribution Width 21.9H, Platelet Count 253, Mean Platelet Volume 8.8, Neutrophils (%) (Auto) , Lymphocytes (%) (Auto) , Monocytes (%) (Auto) , Eosinophils (%) (Auto) , Basophils (%) (Auto) , Neutrophils % (Manual) [Pending], Lymphocytes % (Manual) [Pending], Platelet Estimate [Pending], Platelet Morphology [Pending], Sodium Level [Pending], Potassium Level [Pending], Chloride Level [Pending], Carbon Dioxide Level [Pending], Blood Urea Nitrogen [Pending], Creatinine [Pending], Estimat Glomerular Filtration Rate [Pending], Glucose Level [Pending], Calcium Level [Pending], Phosphorus Level [Pending], Magnesium Level [Pending], Total Bilirubin [Pending], Aspartate Amino Transf (AST/SGOT) [Pending], Alanine Aminotransferase (ALT/SGPT) [Pending], Alkaline Phosphatase [Pending], Total Protein [Pending], Albumin [Pending], Globulin [Pending] Current Medications Medications (Trade) Dose Ordered Sig/Eda Route PRN Reason Start Time Stop Time Status Last Admin Dose Admin Acetaminophen (Tylenol) 650 mg Q4H PRN ORAL Mild Pain/Temp > 100.5 12/04/17 09:30 01/03/18 09:29 Al Hydroxide/Mg Hydroxide (Mylanta) 30 ml Q4H PRN ORAL heartburn 12/04/17 09:30 01/03/18 09:29 Albuterol Sulfate (Proventil) 2.5 mg Q4HRT HHN 12/04/17 07:00 12/09/17 06:59 12/06/17 03:22 Amlodipine Besylate (Norvasc) 10 mg DAILY ORAL 12/04/17 09:00 01/03/18 08:59 12/06/17 08:09 Aspirin (ASA) 81 mg DAILY ORAL 12/04/17 09:00 01/03/18 08:59 12/06/17 08:08 Atorvastatin Calcium (Lipitor) 20 mg BEDTIME ORAL 12/04/17 21:00 01/03/18 20:59 12/05/17 21:14 Azithromycin 500 mg/Sodium Chloride 275 ml @ 275 mls/hr DAILY IV 12/04/17 09:00 12/11/17 08:59 12/06/17 08:09 Beclomethasone Dipropionate (Qvar 40 Inhaler) 1 puff TWICE A DAY INH 12/04/17 09:00 01/03/18 08:59 12/05/17 19:58 Ceftriaxone Sodium 1 gm/ Sodium Chloride 55 ml @ 110 mls/hr DAILY IVPB 12/04/17 09:00 12/11/17 08:59 12/05/17 07:58 Dextrose (Dextrose 50%) STAT PRN IV Hypoglycemia 12/04/17 06:30 01/03/18 06:29 Dextrose (Dextrose 50%) STAT PRN IV Hypoglycemia 12/04/17 22:00 01/03/18 21:59 Dextrose/Sodium Chloride 1,000 ml @ 60 mls/hr [id number] IV 12/04/17 09:00 01/03/18 08:59 12/05/17 12:31 Ferrous Sulfate (Feosol) 325 mg THREE TIMES A DAY ORAL 12/04/17 09:00 01/03/18 08:59 12/06/17 08:08 Heparin Sodium (Porcine) (Heparin 5000 units/ml) 5,000 units EVERY 12 HOURS SUBQ 12/04/17 09:00 01/03/18 08:59 12/06/17 08:12 Insulin Aspart (NovoLOG) BEFORE MEALS AND HS SUBQ 12/04/17 06:30 01/03/18 06:29 12/06/17 06:37 Insulin Aspart (NovoLOG) 7 units NOVOTIAC SUBQ 12/05/17 16:50 01/04/18 16:49 12/06/17 08:06 Insulin Detemir (Levemir) 30 units BEDTIME SUBQ 12/04/17 22:00 01/03/18 21:59 12/05/17 21:13 Iron Sucrose 100 mg/Sodium Chloride 60 ml @ 240 mls/hr BEDTIME IV 12/05/17 21:00 12/09/17 21:14 12/05/17 21:13 Losartan Potassium (Cozaar) 100 mg DAILY ORAL 12/04/17 09:00 01/03/18 08:59 12/06/17 08:08 Magnesium Hydroxide (Mom) 30 ml DAILYPRN PRN ORAL Constipation 12/04/17 09:30 01/03/18 09:29 Methylprednisolone Sodium Succinate (Solu-MEDROL) 40 mg EVERY 12 HOURS IVP 12/04/17 09:00 01/03/18 08:59 12/06/17 08:08 Pantoprazole (Protonix) 40 mg DAILY ORAL 12/04/17 09:00 01/03/18 08:59 12/06/17 08:08 Zolpidem Tartrate (Ambien) 5 mg HSPRN PRN ORAL Insomnia 12/04/17 09:00 12/11/17 08:59 Wilfredo ([facility]),Gloria REGAN Dec 06, 2017 08:13
[2017-12-06 08:17] VITALS: BP 141/79
[2017-12-06] MEDS: Qvar 40mcg Inhaler 6.8 gm INH SCH ×2 (08:29→19:54)
[2017-12-06 08:36] LABS: ALANINE AMINOTRANSFERASE 26 U/L (12-78); ALBUMIN 3.5 G/DL (3.4-5.0); ALBUMIN/GLOBULIN RATIO 0.8 (1.0-2.7); ALKALINE PHOSPHATASE 52 U/L (46-116); ANION GAP 3 mmol/L (5-15); ASPARTATE AMINO TRANSFERASE 18 U/L (15-37); BILIRUBIN,TOTAL 0.7 MG/DL (0.2-1.0); BLOOD UREA NITROGEN 19 mg/dL (7-18); CALCIUM 9.3 MG/DL (8.5-10.1); CARBON DIOXIDE 30 MMOL/L (21-32); CHLORIDE 100 MMOL/L (98-107); POTASSIUM 5.1 MMOL/L (3.5-5.1); SODIUM 133 MMOL/L (136-145)
[2017-12-06 08:41] LABS: PHOSPHORUS 2.8 MG/DL (2.5-4.9)
[2017-12-06] MEDS: cefTRIAXone 1 GM in NS 55 ML IVPB SCH (08:52)
--- NOTE | 2017-12-06 10:00 | General Progress Note ---
Assessment/Plan Problem List: (1) HTN (hypertension) ICD Codes: I10 - Essential (primary) hypertension SNOMED: 60488088 (2) UTI (urinary tract infection) ICD Codes: N39.0 - Urinary tract infection, site not specified SNOMED: 00560583 (3) Anemia ICD Codes: D64.9 - Anemia, unspecified SNOMED: 321605600 Qualifiers: Qualified Codes: D64.9 - Anemia, unspecified (4) Sepsis ICD Codes: A41.9 - Sepsis, unspecified organism SNOMED: 72259143 Qualifiers: Qualified Codes: A41.9 - Sepsis, unspecified organism (5) Diabetes ICD Codes: E11.9 - Type 2 diabetes mellitus without complications SNOMED: 41328897 (6) Hypertension ICD Codes: I10 - Essential (primary) hypertension SNOMED: 56878229 (7) Pneumonia ICD Codes: J18.9 - Pneumonia, unspecified organism SNOMED: 730766828 Qualifiers: Qualified Codes: J18.1 - Lobar pneumonia, unspecified organism Status: unchanged Assessment/Plan 02 pulm tx abx transfuse prn gi hem f/u cbc bmp am dc plan Subjective Constitutional: Reports: weakness Allergies: Coded Allergies: No Known Allergies (Unverified , 06/20/14) All Systems: reviewed and negative except above Subjective o2nc sleepy in bed Objective Last 24 Hour Vital Signs Date Time Temp Pulse Resp B/P (MAP) Pulse Ox O2 Delivery O2 Flow Rate FiO2 12/06/17 08:31 102 14 99 Nasal Cannula 2.0 28 12/06/17 08:27 94 Nasal Cannula 2.0 28 12/06/17 08:27 Nasal Cannula 2.0 28 12/06/17 08:26 28 12/06/17 08:24 101 18 94 Nasal Cannula 2.0 28 12/06/17 08:17 98.2 89 18 141/79 90 Nasal Cannula 2.0 98.2 12/06/17 08:09 89 141/79 12/06/17 08:08 141/79 12/06/17 08:00 100 12/06/17 04:00 96.0 95 18 140/82 90 Nasal Cannula 2.0 96.0 12/06/17 04:00 99 12/06/17 03:32 98 14 98 Nasal Cannula 4.0 36 12/06/17 03:21 36 12/06/17 03:21 106 18 92 Nasal Cannula 4.0 36 12/06/17 00:00 106 12/06/17 00:00 96.3 96 16 128/63 96 Nasal Cannula 2.0 96.3 12/05/17 23:32 105 18 99 Nasal Cannula 4.0 36 12/05/17 23:19 106 18 93 Nasal Cannula 4.0 36 12/05/17 23:19 36 12/05/17 20:10 100 16 99 Nasal Cannula 4.0 36 12/05/17 20:09 93 18 99 Nasal Cannula 4.0 36 12/05/17 20:00 97.3 91 16 123/83 95 Nasal Cannula 2.0 97.3 12/05/17 20:00 94 12/05/17 19:56 94 Nasal Cannula 4.0 36 12/05/17 19:56 Nasal Cannula 4.0 36 12/05/17 19:56 98 20 94 Nasal Cannula 4.0 36 12/05/17 19:56 36 12/05/17 16:00 97.0 100 19 140/81 96 Nasal Cannula 2.0 97.0 12/05/17 15:50 99 12/05/17 14:38 95 19 100 Nasal Cannula 4.0 12/05/17 14:37 98 19 100 Nasal Cannula 4.0 12/05/17 12:00 97.5 95 19 126/71 98 Nasal Cannula 2.0 97.5 12/05/17 12:00 94 Intake and Output 12/05/17 12/06/17 19:00 07:00 Intake Total 1370 ml 790 ml Output Total 1075 ml Balance 1370 ml -285 ml Intake Oral 590 ml 400 ml IV Total 780 ml 390 ml Output Urine Total 1075 ml # Voids 5 3 # Bowel Movements 1 Laboratory Tests 12/06/17 07:22: White Blood Count 11.0H, Red Blood Count 4.06L, Hemoglobin 8.6L, Hematocrit 28.5L, Mean Corpuscular Volume 70L, Mean Corpuscular Hemoglobin 21.2L, Mean Corpuscular Hemoglobin Concent 30.1L, Red Cell Distribution Width 21.9H, Platelet Count 253, Mean Platelet Volume 8.8, Neutrophils (%) (Auto) , Lymphocytes (%) (Auto) , Monocytes (%) (Auto) , Eosinophils (%) (Auto) , Basophils (%) (Auto) , Differential Total Cells Counted 100, Neutrophils % ( Manual) 91H, Lymphocytes % (Manual) 5L, Monocytes % (Manual) 4, Eosinophils % ( Manual) 0, Basophils % (Manual) 0, Band Neutrophils 0, Platelet Estimate Adequate, Platelet Morphology Normal, Hypochromasia 2+, Anisocytosis 3+, Microcytosis 2+, Sodium Level 133L, Potassium Level 5.1, Chloride Level 100, Carbon Dioxide Level 30, Anion Gap 3L, Blood Urea Nitrogen 19H, Creatinine 1.0, Estimat Glomerular Filtration Rate , Glucose Level 139H, Calcium Level 9.3, Phosphorus Level 2.8, Magnesium Level 2.2, Total Bilirubin 0.7, Aspartate Amino Transf (AST/SGOT) 18, Alanine Aminotransferase (ALT/SGPT) 26, Alkaline Phosphatase 52, Total Protein 7.8, Albumin 3.5, Globulin 4.3, Albumin/Globulin Ratio 0.8L Height (Feet): 5 Height (Inches): 9.00 Weight (Pounds): 228 General Appearance: lethargic EENT: normal ENT inspection Neck: normal alignment Cardiovascular: normal peripheral pulses, normal rate, regular rhythm Respiratory/Chest: chest wall non-tender, lungs clear, normal breath sounds Abdomen: normal bowel sounds, non tender, soft Extremities: normal inspection Edema: no edema noted Arm (L), no edema noted Arm (R), no edema noted Leg (L), no edema noted Leg (R), no edema noted Pedal (L), no edema noted Pedal (R), no edema noted Generalized Neurologic: motor weakness Skin: normal pigmentation, warm/dry SOLEDAD MORRIS Dec 06, 2017 10:00
[2017-12-06] MEDS: D5 1/2NS 1,000 ML IV SCH (11:00)
--- NOTE | 2017-12-06 11:01 | General Progress Note ---
Assessment/Plan Assessment/Plan 1. Anemia of chronic disease. --> In the past, the patient noted to be severely iron deficient. --> Iron levels are low again. Begin the patient on IV iron. --> Once laboratories are drawn, consider GI evaluation. --> The patient most likely has gastrointestinal bleeding. --> anemia workup completed: Iron 9, TIBC 469, B12 132, Folate 14.8 2. Anemia due to iron deficiency. --> Begin the patient on iron treatment. --> Begin the patient on IV iron and continue p.o. iron. --> Monitor closely. 3. Leukopenia. Rule out human immunodeficiency virus and hepatitis. --> Resolved. --> Trend cbc daily. 4. Mild gastric thickening on prior CAT scan. Closely monitor. 5. Somewhat atrophic liver concerning for cirrhosis on prior CAT scan. 6. Obtain imaging of the liver. --> Abd ultrasound revealed bilateral renal cysts Subjective Date patient seen: Dec 05, 2017 Constitutional: Denies: no symptoms, chills, diaphoresis, fever, malaise, weakness, other HEENT: Denies: no symptoms, eye pain, blurred vision, tearing, double vision, ear pain, ear discharge, nose pain, nose congestion, throat pain, throat swelling, mouth pain, mouth swelling, other Cardiovascular: Denies: no symptoms, chest pain, edema, irregular heart rate, lightheadedness, palpitations, syncope, other Respiratory: Denies: no symptoms, cough, orthopnea, shortness of breath, SOB with excertion, SOB at rest, sputum, stridor, wheezing, other Gastrointestinal/Abdominal: Denies: no symptoms, abdomen distended, abdominal pain, black stools, tarry stools, blood in stool, constipated, diarrhea, difficulty swallowing, nausea, poor appetite, poor fluid intake, rectal bleeding , vomiting, other Genitourinary: Denies: no symptoms, burning, discharge, frequency, flank pain, hematuria, incontinence, pain, urgency, other Neurologic/Psychiatric: Denies: no symptoms, anxiety, depressed, emotional problems, headache, numbness, paresthesia, pre-existing deficit, seizure, tingling, tremors, weakness, other Hematologic/Lymphatic: Reports: anemia Allergies: Coded Allergies: No Known Allergies (Unverified , 06/20/14) Subjective H/H improving. No acute distress. No fever. Objective Last 24 Hour Vital Signs Date Time Temp Pulse Resp B/P (MAP) Pulse Ox O2 Delivery O2 Flow Rate FiO2 12/06/17 08:31 102 14 99 Nasal Cannula 2.0 28 12/06/17 08:27 94 Nasal Cannula 2.0 28 12/06/17 08:27 Nasal Cannula 2.0 28 12/06/17 08:26 28 12/06/17 08:24 101 18 94 Nasal Cannula 2.0 28 12/06/17 08:17 98.2 89 18 141/79 90 Nasal Cannula 2.0 98.2 12/06/17 08:09 89 141/79 12/06/17 08:08 141/79 12/06/17 08:00 100 12/06/17 04:00 96.0 95 18 140/82 90 Nasal Cannula 2.0 96.0 12/06/17 04:00 99 12/06/17 03:32 98 14 98 Nasal Cannula 4.0 36 12/06/17 03:21 36 12/06/17 03:21 106 18 92 Nasal Cannula 4.0 36 12/06/17 00:00 106 12/06/17 00:00 96.3 96 16 128/63 96 Nasal Cannula 2.0 96.3 12/05/17 23:32 105 18 99 Nasal Cannula 4.0 36 12/05/17 23:19 106 18 93 Nasal Cannula 4.0 36 12/05/17 23:19 36 12/05/17 20:10 100 16 99 Nasal Cannula 4.0 36 12/05/17 20:09 93 18 99 Nasal Cannula 4.0 36 12/05/17 20:00 97.3 91 16 123/83 95 Nasal Cannula 2.0 97.3 12/05/17 20:00 94 12/05/17 19:56 94 Nasal Cannula 4.0 36 12/05/17 19:56 Nasal Cannula 4.0 36 12/05/17 19:56 98 20 94 Nasal Cannula 4.0 36 12/05/17 19:56 36 12/05/17 16:00 97.0 100 19 140/81 96 Nasal Cannula 2.0 97.0 12/05/17 15:50 99 12/05/17 14:38 95 19 100 Nasal Cannula 4.0 12/05/17 14:37 98 19 100 Nasal Cannula 4.0 12/05/17 12:00 97.5 95 19 126/71 98 Nasal Cannula 2.0 97.5 12/05/17 12:00 94 Intake and Output 12/05/17 12/06/17 19:00 07:00 Intake Total 1370 ml 790 ml Output Total 1075 ml Balance 1370 ml -285 ml Intake Oral 590 ml 400 ml IV Total 780 ml 390 ml Output Urine Total 1075 ml # Voids 5 3 # Bowel Movements 1 Laboratory Tests 12/06/17 07:22: White Blood Count 11.0H, Red Blood Count 4.06L, Hemoglobin 8.6L, Hematocrit 28.5L, Mean Corpuscular Volume 70L, Mean Corpuscular Hemoglobin 21.2L, Mean Corpuscular Hemoglobin Concent 30.1L, Red Cell Distribution Width 21.9H, Platelet Count 253, Mean Platelet Volume 8.8, Neutrophils (%) (Auto) , Lymphocytes (%) (Auto) , Monocytes (%) (Auto) , Eosinophils (%) (Auto) , Basophils (%) (Auto) , Differential Total Cells Counted 100, Neutrophils % ( Manual) 91H, Lymphocytes % (Manual) 5L, Monocytes % (Manual) 4, Eosinophils % ( Manual) 0, Basophils % (Manual) 0, Band Neutrophils 0, Platelet Estimate Adequate, Platelet Morphology Normal, Hypochromasia 2+, Anisocytosis 3+, Microcytosis 2+, Sodium Level 133L, Potassium Level 5.1, Chloride Level 100, Carbon Dioxide Level 30, Anion Gap 3L, Blood Urea Nitrogen 19H, Creatinine 1.0, Estimat Glomerular Filtration Rate , Glucose Level 139H, Calcium Level 9.3, Phosphorus Level 2.8, Magnesium Level 2.2, Total Bilirubin 0.7, Aspartate Amino Transf (AST/SGOT) 18, Alanine Aminotransferase (ALT/SGPT) 26, Alkaline Phosphatase 52, Total Protein 7.8, Albumin 3.5, Globulin 4.3, Albumin/Globulin Ratio 0.8L Height (Feet): 5 Height (Inches): 9.00 Weight (Pounds): 228 [place] Fountain Dec 06, 2017 11:01
[2017-12-06 13:06] VITALS: BP 136/83
[2017-12-06 20:00] VITALS: BP 137/78
[2017-12-06] MEDS ORDERED: Miralax 17gm pkt ORAL SCH (21:00)
[2017-12-06] MEDS ORDERED: Iron Sucrose 100 MG in NS 55 ML IVPB SCH (21:00)
[2017-12-06] MEDS: Iron Sucrose 100 MG in NS 55 ML IV SCH (21:09)
[2017-12-06] MEDS: Atorvastatin 20mg tab ORAL SCH (21:10)
[2017-12-06] MEDS: Levemir Flexpen SUBQ SCH (21:13)
--- NOTE | 2017-12-06 23:56 | General Progress Note ---
Assessment/Plan Assessment/Plan 1. Anemia of chronic disease. --> In the past, the patient noted to be severely iron deficient. --> Iron levels are low again. Begin the patient on IV iron. --> Once laboratories are drawn, consider GI evaluation. --> The patient most likely has gastrointestinal bleeding. --> anemia workup completed: Iron 9, TIBC 469, B12 132, Folate 14.8 --> Monitor for improvement. Transfuse if hgb <7 2. Anemia due to iron deficiency. --> Begin the patient on iron treatment. --> Begin the patient on IV iron and continue p.o. iron. --> Monitor closely for improvement in iron levels. 3. Leukopenia. Rule out human immunodeficiency virus and hepatitis. Both panels were negative. --> Resolved. --> Trend cbc daily. 4. Mild gastric thickening on prior CAT scan. Closely monitor. 5. Somewhat atrophic liver concerning for cirrhosis on prior CAT scan. 6. Obtain imaging of the liver. --> Abd ultrasound revealed bilateral renal cysts Subjective Date patient seen: Dec 06, 2017 Constitutional: Denies: no symptoms, chills, diaphoresis, fever, malaise, weakness, other HEENT: Denies: no symptoms, eye pain, blurred vision, tearing, double vision, ear pain, ear discharge, nose pain, nose congestion, throat pain, throat swelling, mouth pain, mouth swelling, other Cardiovascular: Denies: no symptoms, chest pain, edema, irregular heart rate, lightheadedness, palpitations, syncope, other Respiratory: Denies: no symptoms, cough, orthopnea, shortness of breath, SOB with excertion, SOB at rest, sputum, stridor, wheezing, other Gastrointestinal/Abdominal: Denies: no symptoms, abdomen distended, abdominal pain, black stools, tarry stools, blood in stool, constipated, diarrhea, difficulty swallowing, nausea, poor appetite, poor fluid intake, rectal bleeding , vomiting, other Genitourinary: Denies: no symptoms, burning, discharge, frequency, flank pain, hematuria, incontinence, pain, urgency, other Neurologic/Psychiatric: Denies: no symptoms, anxiety, depressed, emotional problems, headache, numbness, paresthesia, pre-existing deficit, seizure, tingling, tremors, weakness, other Allergies: Coded Allergies: No Known Allergies (Unverified , 06/20/14) Subjective H/H improving. No acute distress. No fever. Objective Last 24 Hour Vital Signs Date Time Temp Pulse Resp B/P (MAP) Pulse Ox O2 Delivery O2 Flow Rate FiO2 12/06/17 23:18 Nasal Cannula 12/06/17 23:18 Nasal Cannula 12/06/17 20:03 87 18 99 Nasal Cannula 4.0 36 12/06/17 20:00 97.5 90 17 137/78 96 Nasal Cannula 2.0 97.5 12/06/17 19:54 Nasal Cannula 2.0 28 12/06/17 19:54 94 Nasal Cannula 2.0 28 12/06/17 19:54 97 18 94 Nasal Cannula 2.0 28 12/06/17 19:54 28 12/06/17 15:58 98 12/06/17 15:20 99 16 99 Nasal Cannula 2.0 28 12/06/17 15:11 28 12/06/17 15:11 95 18 98 Nasal Cannula 2.0 28 12/06/17 13:06 98.2 91 18 136/83 90 Nasal Cannula 2.0 98.2 12/06/17 11:56 63 12/06/17 11:25 97 14 99 Nasal Cannula 2.0 28 12/06/17 11:18 28 12/06/17 11:17 94 18 98 Nasal Cannula 2.0 28 12/06/17 08:31 102 14 99 Nasal Cannula 2.0 28 12/06/17 08:27 94 Nasal Cannula 2.0 28 12/06/17 08:27 Nasal Cannula 2.0 28 12/06/17 08:26 28 12/06/17 08:24 101 18 94 Nasal Cannula 2.0 28 12/06/17 08:17 98.2 89 18 141/79 90 Nasal Cannula 2.0 98.2 12/06/17 08:09 89 141/79 12/06/17 08:08 141/79 12/06/17 08:00 100 12/06/17 04:00 96.0 95 18 140/82 90 Nasal Cannula 2.0 96.0 12/06/17 04:00 99 12/06/17 03:32 98 14 98 Nasal Cannula 4.0 36 12/06/17 03:21 36 12/06/17 03:21 106 18 92 Nasal Cannula 4.0 36 12/06/17 00:00 106 12/06/17 00:00 96.3 96 16 128/63 96 Nasal Cannula 2.0 96.3 Intake and Output 12/05/17 12/06/17 19:00 07:00 Intake Total 1370 ml 790 ml Output Total 1075 ml Balance 1370 ml -285 ml Intake Oral 590 ml 400 ml IV Total 780 ml 390 ml Output Urine Total 1075 ml # Voids 5 3 # Bowel Movements 1 Laboratory Tests 12/06/17 07:22: White Blood Count 11.0H, Red Blood Count 4.06L, Hemoglobin 8.6L, Hematocrit 28.5L, Mean Corpuscular Volume 70L, Mean Corpuscular Hemoglobin 21.2L, Mean Corpuscular Hemoglobin Concent 30.1L, Red Cell Distribution Width 21.9H, Platelet Count 253, Mean Platelet Volume 8.8, Neutrophils (%) (Auto) , Lymphocytes (%) (Auto) , Monocytes (%) (Auto) , Eosinophils (%) (Auto) , Basophils (%) (Auto) , Differential Total Cells Counted 100, Neutrophils % ( Manual) 91H, Lymphocytes % (Manual) 5L, Monocytes % (Manual) 4, Eosinophils % ( Manual) 0, Basophils % (Manual) 0, Band Neutrophils 0, Platelet Estimate Adequate, Platelet Morphology Normal, Hypochromasia 2+, Anisocytosis 3+, Microcytosis 2+, Sodium Level 133L, Potassium Level 5.1, Chloride Level 100, Carbon Dioxide Level 30, Anion Gap 3L, Blood Urea Nitrogen 19H, Creatinine 1.0, Estimat Glomerular Filtration Rate , Glucose Level 139H, Calcium Level 9.3, Phosphorus Level 2.8, Magnesium Level 2.2, Total Bilirubin 0.7, Aspartate Amino Transf (AST/SGOT) 18, Alanine Aminotransferase (ALT/SGPT) 26, Alkaline Phosphatase 52, Total Protein 7.8, Albumin 3.5, Globulin 4.3, Albumin/Globulin Ratio 0.8L Height (Feet): 5 Height (Inches): 9.00 Weight (Pounds): 228 [place] Fountain Dec 06, 2017 23:56
[2017-12-07] VITALS: BP 148/88
[2017-12-07] MEDS: Albuterol ud Inhalation HHN SCH ×6 (03:00→23:37)
[2017-12-07] MEDS: D5 1/2NS 1,000 ML IV SCH ×2 (03:07→20:33)
[2017-12-07 04:00] VITALS: BP 145/81
--- NOTE | 2017-12-07 04:30 | Consultation ---
DATE OF CONSULTATION: 12/06/2017 CONSULTING PHYSICIAN: Darin Watts M.D. CHIEF COMPLAINT: Anemia. HISTORY OF PRESENT ILLNESS: The patient is a 77-year-old male, known to me from prior admissions. In 2017, he had endoscopy and colonoscopy. Endoscopy showed evidence for H. pylori gastritis. I am not sure if the patient got treatment followup. He does not come to the clinic. He also had a colonoscopy, which was fair prep and there was no active bleeding at that time even though stool OB was positive. The patient readmitted with shortness of breath and has had some anemia, so GI consult requested for evaluation. The patient denies any nausea or vomiting. Denies any abdominal pain. Denies any weight loss. Denies any diarrhea, but complained of some constipation. PAST MEDICAL HISTORY: 1. History of H. pylori gastritis. 2. Hiatal hernia. 3. History of CVA. 4. Hypertension. 5. GERD. 6. Diabetes. 7. Anemia, iron deficiency. MEDICATIONS: Please see medication reconciliation list. ALLERGIES: No known drug allergies. SOCIAL HISTORY: The patient has remote history of tobacco usage, but no recent intravenous drug abuse. FAMILY HISTORY: No family history of gastrointestinal malignancies. PHYSICAL EXAMINATION: VITAL SIGNS: Temperature is 98.2, pulse is 99, respirations 16, and blood pressure is 132/83. HEENT: Normocephalic and atraumatic. Sclerae anicteric. NECK: Supple. No lymphadenopathy. CARDIOVASCULAR: Regular rhythm. Plus S1 and S2. LUNGS: Decreased breath sounds bilaterally and diffusely. ABDOMEN: Soft and nontender. No rebound. No guarding. No peritoneal sign. EXTREMITIES: No cyanosis. No clubbing. LABORATORY DATA: White count is 11, hemoglobin is 8.6, hematocrit 28.5, and platelet count is 253. ASSESSMENT: 1. Iron-deficiency anemia. 2. Constipation. 3. Hepatitis C. PLAN: IV iron, laxative, Colace, and MiraLax. Send stool for OB. Consider doing a repeat colonoscopy if the stool OB comes back positive with a better prep. The patient needs outpatient followup for hepatitis C treatment. I want to thank, Dr. Bry Santiago, for this kind referral. Darin Tatiana Watts DR: Pam JOB#: [id number] CC: Bry Santiago D.O.
[2017-12-07] MEDS: NovoLOG Insulin Flexpen SUBQ SCH ×9 (06:12→20:38)
--- NOTE | 2017-12-07 07:49 | General Progress Note ---
Assessment/Plan Problem List: (1) Diabetes ICD Codes: E11.9 - Type 2 diabetes mellitus without complications SNOMED: 83701082 (2) Hypertension ICD Codes: I10 - Essential (primary) hypertension SNOMED: 25354555 (3) Renal insufficiency ICD Codes: N28.9 - Disorder of kidney and ureter, unspecified SNOMED: 460174437 (4) Pneumonia ICD Codes: J18.9 - Pneumonia, unspecified organism SNOMED: 833684006 Qualifiers: Qualified Codes: J18.1 - Lobar pneumonia, unspecified organism Assessment/Plan continue Levemir 30 units qhs continue Novolog 7 units ac tid continue NISS I will continue to adjust insulin dosage according to BG values and steroid taper Subjective Allergies: Coded Allergies: No Known Allergies (Unverified , 06/20/14) All Systems: reviewed and negative except above Subjective events noted glucose values well controlled without hypoglycemia still on IVSM 40 mg daily Objective Last 24 Hour Vital Signs Date Time Temp Pulse Resp B/P (MAP) Pulse Ox O2 Delivery O2 Flow Rate FiO2 12/07/17 07:20 86 18 99 Nasal Cannula 2.0 28 12/07/17 07:16 Nasal Cannula 2.0 28 12/07/17 07:16 87 Nasal Cannula 2.0 28 12/07/17 07:16 87 18 97 Nasal Cannula 2.0 28 12/07/17 07:16 28 12/07/17 04:00 97.9 101 20 145/81 95 Nasal Cannula 2.0 97.9 12/07/17 04:00 96 12/07/17 03:41 Nasal Cannula 12/07/17 03:41 Nasal Cannula 12/07/17 00:00 98 12/07/17 00:00 97.7 101 20 148/88 94 Nasal Cannula 2.0 97.7 12/06/17 23:18 Nasal Cannula 12/06/17 23:18 Nasal Cannula 12/06/17 20:03 87 18 99 Nasal Cannula 4.0 36 12/06/17 20:00 97.5 90 17 137/78 96 Nasal Cannula 2.0 97.5 12/06/17 20:00 95 12/06/17 19:54 Nasal Cannula 2.0 28 12/06/17 19:54 94 Nasal Cannula 2.0 28 12/06/17 19:54 97 18 94 Nasal Cannula 2.0 28 12/06/17 19:54 28 12/06/17 15:58 98 12/06/17 15:20 99 16 99 Nasal Cannula 2.0 28 12/06/17 15:11 28 12/06/17 15:11 95 18 98 Nasal Cannula 2.0 28 12/06/17 13:06 98.2 91 18 136/83 90 Nasal Cannula 2.0 98.2 12/06/17 11:56 63 12/06/17 11:25 97 14 99 Nasal Cannula 2.0 28 12/06/17 11:18 28 12/06/17 11:17 94 18 98 Nasal Cannula 2.0 28 12/06/17 08:31 102 14 99 Nasal Cannula 2.0 28 12/06/17 08:27 94 Nasal Cannula 2.0 28 12/06/17 08:27 Nasal Cannula 2.0 28 12/06/17 08:26 28 12/06/17 08:24 101 18 94 Nasal Cannula 2.0 28 12/06/17 08:17 98.2 89 18 141/79 90 Nasal Cannula 2.0 98.2 12/06/17 08:09 89 141/79 12/06/17 08:08 141/79 12/06/17 08:00 100 Intake and Output 12/06/17 12/07/17 19:00 07:00 Intake Total 985 ml Output Total 800 ml 1600 ml Balance 185 ml -1600 ml Intake Oral 480 ml IV Total 505 ml Output Urine Total 800 ml 1600 ml # Voids 3 3 Height (Feet): 5 Height (Inches): 9.00 Weight (Pounds): 228 General Appearance: no apparent distress Neck: normal alignment Cardiovascular: normal rate Respiratory/Chest: decreased breath sounds Abdomen: normal bowel sounds Pelvis: normal external exam Objective Current Medications Medications (Trade) Dose Ordered Sig/Eda Route PRN Reason Start Time Stop Time Status Last Admin Dose Admin Acetaminophen (Tylenol) 650 mg Q4H PRN ORAL Mild Pain/Temp > 100.5 12/04/17 09:30 01/03/18 09:29 Al Hydroxide/Mg Hydroxide (Mylanta) 30 ml Q4H PRN ORAL heartburn 12/04/17 09:30 01/03/18 09:29 Albuterol Sulfate (Proventil) 2.5 mg Q4HRT HHN 12/04/17 07:00 12/09/17 06:59 12/07/17 07:16 Amlodipine Besylate (Norvasc) 10 mg DAILY ORAL 12/04/17 09:00 01/03/18 08:59 12/06/17 08:09 Aspirin (ASA) 81 mg DAILY ORAL 12/04/17 09:00 01/03/18 08:59 12/06/17 08:08 Atorvastatin Calcium (Lipitor) 20 mg BEDTIME ORAL 12/04/17 21:00 01/03/18 20:59 12/06/17 21:10 Azithromycin 500 mg/Sodium Chloride 275 ml @ 275 mls/hr DAILY IV 12/04/17 09:00 12/11/17 08:59 12/06/17 08:09 Beclomethasone Dipropionate (Qvar 40 Inhaler) 1 puff TWICE A DAY INH 12/04/17 09:00 01/03/18 08:59 12/06/17 19:54 Ceftriaxone Sodium 1 gm/ Sodium Chloride 55 ml @ 110 mls/hr DAILY IVPB 12/04/17 09:00 12/11/17 08:59 12/06/17 08:52 Dextrose (Dextrose 50%) STAT PRN IV Hypoglycemia 12/04/17 06:30 01/03/18 06:29 Dextrose (Dextrose 50%) STAT PRN IV Hypoglycemia 12/04/17 22:00 01/03/18 21:59 Dextrose/Sodium Chloride 1,000 ml @ 60 mls/hr [id number] IV 12/04/17 09:00 01/03/18 08:59 12/07/17 03:07 Docusate Sodium (Colace) 100 mg TWICE A DAY ORAL 12/07/17 09:00 01/06/18 08:59 Ferrous Sulfate (Feosol) 325 mg THREE TIMES A DAY ORAL 12/04/17 09:00 01/03/18 08:59 12/06/17 17:01 Heparin Sodium (Porcine) (Heparin 5000 units/ml) 5,000 units EVERY 12 HOURS SUBQ 12/04/17 09:00 01/03/18 08:59 12/06/17 21:14 Insulin Aspart (NovoLOG) BEFORE MEALS AND HS SUBQ 12/04/17 06:30 01/03/18 06:29 12/07/17 06:12 Insulin Aspart (NovoLOG) 7 units NOVOTIAC SUBQ 12/05/17 16:50 01/04/18 16:49 12/07/17 06:14 Insulin Detemir (Levemir) 30 units BEDTIME SUBQ 12/04/17 22:00 01/03/18 21:59 12/06/17 21:13 Iron Sucrose 100 mg/Sodium Chloride 60 ml @ 240 mls/hr BEDTIME IV 12/05/17 21:00 12/09/17 21:14 12/06/17 21:09 Losartan Potassium (Cozaar) 100 mg DAILY ORAL 12/04/17 09:00 01/03/18 08:59 12/06/17 08:08 Magnesium Hydroxide (Mom) 30 ml DAILYPRN PRN ORAL Constipation 12/04/17 09:30 01/03/18 09:29 Methylprednisolone Sodium Succinate (Solu-MEDROL) 40 mg EVERY 12 HOURS IVP 12/04/17 09:00 01/03/18 08:59 12/06/17 21:10 Pantoprazole (Protonix) 40 mg DAILY ORAL 12/04/17 09:00 01/03/18 08:59 12/06/17 08:08 Polyethylene Glycol (Miralax) 17 gm BEDTIME ORAL 12/06/17 21:00 01/05/18 20:59 12/06/17 22:20 Zolpidem Tartrate (Ambien) 5 mg HSPRN PRN ORAL Insomnia 12/04/17 09:00 12/11/17 08:59 Item Value Date Time Bedside Blood Glucose 127 mg/dl H 12/07/17 0614 Bedside Blood Glucose 109 mg/dl 12/06/17 2113 Bedside Blood Glucose 188 mg/dl H 12/06/17 1659 Bedside Blood Glucose 175 mg/dl H 12/06/17 1224 UVALDO TORRES 4, 2018 07:49
[2017-12-07 08:00] VITALS: BP 159/85
[2017-12-07] MEDS: Azithromycin 500 MG in NS 275 ML IV SCH (08:59)
[2017-12-07] MEDS: cefTRIAXone 1 GM in NS 55 ML IVPB SCH (09:00)
[2017-12-07] MEDS: Docusate 100mg cap ORAL SCH ×2 (09:00→17:27)
[2017-12-07] MEDS: Aspirin Baby 81mg ORAL SCH (09:01)
[2017-12-07] MEDS: Losartan 50mg tab ORAL SCH (09:01)
[2017-12-07] MEDS: Heparin 5000 units/ml inj SUBQ SCH ×2 (09:03→20:38)
[2017-12-07] MEDS: Solu-MEDROL 40mg Inj IVP SCH ×2 (09:05→20:33)
--- NOTE | 2017-12-07 09:19 | General Progress Note ---
Assessment/Plan Problem List: (1) HTN (hypertension) ICD Codes: I10 - Essential (primary) hypertension SNOMED: 50070726 (2) UTI (urinary tract infection) ICD Codes: N39.0 - Urinary tract infection, site not specified SNOMED: 71457472 (3) Anemia ICD Codes: D64.9 - Anemia, unspecified SNOMED: 407974393 Qualifiers: Qualified Codes: D64.9 - Anemia, unspecified (4) Sepsis ICD Codes: A41.9 - Sepsis, unspecified organism SNOMED: 37908742 Qualifiers: Qualified Codes: A41.9 - Sepsis, unspecified organism (5) Diabetes ICD Codes: E11.9 - Type 2 diabetes mellitus without complications SNOMED: 52830301 (6) Hypertension ICD Codes: I10 - Essential (primary) hypertension SNOMED: 40709777 (7) Pneumonia ICD Codes: J18.9 - Pneumonia, unspecified organism SNOMED: 595340051 Qualifiers: Qualified Codes: J18.1 - Lobar pneumonia, unspecified organism Status: unchanged Assessment/Plan 02 pulm tx abx transfuse prn gi hem f/u cbc bmp am dc plan Subjective Constitutional: Reports: weakness Allergies: Coded Allergies: No Known Allergies (Unverified , 06/20/14) All Systems: reviewed and negative except above Subjective o2nc sleepy in bed Objective Last 24 Hour Vital Signs Date Time Temp Pulse Resp B/P (MAP) Pulse Ox O2 Delivery O2 Flow Rate FiO2 12/07/17 09:01 159/85 12/07/17 09:01 98 159/85 12/07/17 07:20 86 18 99 Nasal Cannula 2.0 28 12/07/17 07:16 Nasal Cannula 2.0 28 12/07/17 07:16 87 Nasal Cannula 2.0 28 12/07/17 07:16 87 18 97 Nasal Cannula 2.0 28 12/07/17 07:16 28 12/07/17 04:00 97.9 101 20 145/81 95 Nasal Cannula 2.0 97.9 12/07/17 04:00 96 12/07/17 03:41 Nasal Cannula 12/07/17 03:41 Nasal Cannula 12/07/17 00:00 98 12/07/17 00:00 97.7 101 20 148/88 94 Nasal Cannula 2.0 97.7 12/06/17 23:18 Nasal Cannula 12/06/17 23:18 Nasal Cannula 12/06/17 20:03 87 18 99 Nasal Cannula 4.0 36 12/06/17 20:00 97.5 90 17 137/78 96 Nasal Cannula 2.0 97.5 12/06/17 20:00 95 12/06/17 19:54 Nasal Cannula 2.0 28 12/06/17 19:54 94 Nasal Cannula 2.0 28 12/06/17 19:54 97 18 94 Nasal Cannula 2.0 28 12/06/17 19:54 28 12/06/17 15:58 98 12/06/17 15:20 99 16 99 Nasal Cannula 2.0 28 12/06/17 15:11 28 12/06/17 15:11 95 18 98 Nasal Cannula 2.0 28 12/06/17 13:06 98.2 91 18 136/83 90 Nasal Cannula 2.0 98.2 12/06/17 11:56 63 12/06/17 11:25 97 14 99 Nasal Cannula 2.0 28 12/06/17 11:18 28 12/06/17 11:17 94 18 98 Nasal Cannula 2.0 28 Intake and Output 12/06/17 12/07/17 19:00 07:00 Intake Total 985 ml Output Total 800 ml 1600 ml Balance 185 ml -1600 ml Intake Oral 480 ml IV Total 505 ml Output Urine Total 800 ml 1600 ml # Voids 3 3 Height (Feet): 5 Height (Inches): 9.00 Weight (Pounds): 228 General Appearance: lethargic EENT: normal ENT inspection Neck: normal alignment Cardiovascular: normal peripheral pulses, normal rate, regular rhythm Respiratory/Chest: decreased breath sounds Abdomen: normal bowel sounds, non tender, soft Pelvis: normal external exam, normal rectal exam, speculum exam normal Extremities: normal inspection Edema: no edema noted Arm (L), no edema noted Arm (R), no edema noted Leg (L), no edema noted Leg (R), no edema noted Pedal (L), no edema noted Pedal (R), no edema noted Generalized Neurologic: motor weakness Skin: normal pigmentation, warm/dry SOLEDAD MORRIS Dec 07, 2017 09:19
[2017-12-07] MEDS: Qvar 40mcg Inhaler 6.8 gm INH SCH (09:21)
--- NOTE | 2017-12-07 09:54 | General Progress Note ---
Assessment/Plan Problem List: (1) HTN (hypertension) ICD Codes: I10 - Essential (primary) hypertension SNOMED: 65135491 (2) COPD with acute exacerbation ICD Codes: J44.1 - Chronic obstructive pulmonary disease with (acute) exacerbation SNOMED: 416259940 (3) Diabetes ICD Codes: E11.9 - Type 2 diabetes mellitus without complications SNOMED: 45584940 (4) Anemia ICD Codes: D64.9 - Anemia, unspecified SNOMED: 342582881 Qualifiers: Qualified Codes: D64.9 - Anemia, unspecified (5) Iron deficiency ICD Codes: E61.1 - Iron deficiency SNOMED: 06969174 (6) Hepatitis C ICD Codes: B19.20 - Unspecified viral hepatitis C without hepatic coma SNOMED: 98458317 (7) Helicobacter pylori (H. pylori) ICD Codes: A04.8 - Other specified bacterial intestinal infections SNOMED: 365412370 Assessment/Plan iv iron fu stool ob and EGD/ colonoscopy if positive bowel regimen out patient breath test for H.Pylori hep c treatment as out patient Subjective ROS Limited/Unobtainable: Yes Allergies: Coded Allergies: No Known Allergies (Unverified , 06/20/14) Subjective no event Objective Last 24 Hour Vital Signs Date Time Temp Pulse Resp B/P (MAP) Pulse Ox O2 Delivery O2 Flow Rate FiO2 12/07/17 09:01 159/85 12/07/17 09:01 98 159/85 12/07/17 07:20 86 18 99 Nasal Cannula 2.0 28 12/07/17 07:16 Nasal Cannula 2.0 28 12/07/17 07:16 87 Nasal Cannula 2.0 28 12/07/17 07:16 87 18 97 Nasal Cannula 2.0 28 12/07/17 07:16 28 12/07/17 04:00 97.9 101 20 145/81 95 Nasal Cannula 2.0 97.9 12/07/17 04:00 96 12/07/17 03:41 Nasal Cannula 12/07/17 03:41 Nasal Cannula 12/07/17 00:00 98 12/07/17 00:00 97.7 101 20 148/88 94 Nasal Cannula 2.0 97.7 12/06/17 23:18 Nasal Cannula 12/06/17 23:18 Nasal Cannula 12/06/17 20:03 87 18 99 Nasal Cannula 4.0 36 12/06/17 20:00 97.5 90 17 137/78 96 Nasal Cannula 2.0 97.5 12/06/17 20:00 95 12/06/17 19:54 Nasal Cannula 2.0 28 12/06/17 19:54 94 Nasal Cannula 2.0 28 12/06/17 19:54 97 18 94 Nasal Cannula 2.0 28 12/06/17 19:54 28 12/06/17 15:58 98 12/06/17 15:20 99 16 99 Nasal Cannula 2.0 28 12/06/17 15:11 28 12/06/17 15:11 95 18 98 Nasal Cannula 2.0 28 12/06/17 13:06 98.2 91 18 136/83 90 Nasal Cannula 2.0 98.2 12/06/17 11:56 63 12/06/17 11:25 97 14 99 Nasal Cannula 2.0 28 12/06/17 11:18 28 12/06/17 11:17 94 18 98 Nasal Cannula 2.0 28 Intake and Output 12/06/17 12/07/17 19:00 07:00 Intake Total 985 ml Output Total 800 ml 1600 ml Balance 185 ml -1600 ml Intake Oral 480 ml IV Total 505 ml Output Urine Total 800 ml 1600 ml # Voids 3 3 Height (Feet): 5 Height (Inches): 9.00 Weight (Pounds): 228 General Appearance: alert EENT: normal ENT inspection Neck: supple Cardiovascular: normal rate Respiratory/Chest: decreased breath sounds Abdomen: normal bowel sounds, non tender, soft Extremities: non-tender ZOILA RUSSO Dec 07, 2017 09:54
--- NOTE | 2017-12-07 11:17 | Diagnostic Imaging Report ---
Indication: Dyspnea Technique: Continuous helical transaxial imaging of the chest was obtained from the thoracic inlet to the upper abdomen. No intravenous contrast was administered. Coronal 2-D reformats were also obtained. Total Dose length Product (DLP): 881.[address] Dose Index Volume (CTDIvol): 24.82 mGy Comparison: none Findings: There is a 6-7 mm lung nodule in the right upper lobe. In the left lower lobe there is a 5 mm nodule present. No previous CT chest examinations are available for comparison. However a CT abdomen performed 06/16/2017 did fortunately image the left lower lobe nodule. By comparison, the left lower lobe nodule appears larger on the current exam. Therefore, the findings are suspicious for neoplasm. Clinical workup and evaluation for occult malignancy is recommended. The lungs are also notable for emphysema with areas of hyperlucency within both upper and lower lung [place]. There is a small amount of atelectasis at the lung bases. The visualized part of the upper abdomen demonstrates 4.3 cm hyperdensity in the right kidney. This is probably a hemorrhagic or proteinaceous cyst. Small celiac nodes and gastrohepatic nodes are present nonspecific in nature. IMPRESSION: Interval growth of a 5 mm left lower lobe lung nodule compared to 06/16 17. Findings suspicious for metastatic disease. Further workup for occult malignancy is recommended. Both nodules are too small to perform percutaneous biopsy. Recommend consultation with the CT surgeon. 7 mm right upper lobe nodule also demonstrated without comparison studies. Partially image a 4.3 cm mass in the right kidney probably proteinaceous or hemorrhagic cysts. Tiny nodes in the upper abdomen nonspecific in nature. Pulmonary emphysema/COPD The CT scanner at [facility] is accredited by the [place] [employer] and the scans are performed using dose optimization techniques as appropriate to a performed exam including Automatic Exposure control.
[2017-12-07 12:00] VITALS: BP 152/85
[2017-12-07 12:09] LABS: ANION GAP 4 mmol/L (5-15); BLOOD UREA NITROGEN 19 mg/dL (7-18); CALCIUM 9.5 MG/DL (8.5-10.1); CARBON DIOXIDE 31 MMOL/L (21-32); CHLORIDE 99 MMOL/L (98-107); POTASSIUM 4.6 MMOL/L (3.5-5.1); SODIUM 134 MMOL/L (136-145)
[2017-12-07 12:10] LABS: APTT 1:1 MIX SALINE 39.7 sec (Not Estab.); APTT 1:1 NORMAL PLASMA 24.2 sec (22.9-30.2)
[2017-12-07 12:13] LABS: HEMATOCRIT 30.3 % (42.0-52.0); HEMOGLOBIN 8.7 G/DL (14.2-18.0); MEAN CORPUSCULAR VOLUME 69 FL (80-99); PLATELET COUNT 243 K/UL (150-450); RED BLOOD COUNT 4.36 M/UL (4.70-6.10); RED CELL DISTRIBUTION WIDTH 22.9 % (11.6-14.8); WHITE BLOOD COUNT 10.4 K/UL (4.8-10.8)
--- NOTE | 2017-12-07 14:01 | Pulmonology Progress Note ---
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 on smoking cessation CXR no acute pathology need iron supplements -per PMD GI seen and evaluated stool OB EGD/ colonoscopy if positive stool OB bowel regimen out patient breath test for H.Pylori hep c treatment as out patient ADDENDUM CT chest results became available on 12/07 ( done 12/06) CT chest with 2 pulm nodules, too small to biopsy ,worrisome for malignancy fup with oncologist as outpt, check cancer tumor markers, repeat CT chest in 3 months; surgical evaluation as outpt , probable resection of nodules case discussed and evaluated by supervising physician Subjective Allergies: Coded Allergies: No Known Allergies (Unverified , 06/20/14) Subjective denies CP, SOB occasional cough, no hemoptysis Objective Last 24 Hour Vital Signs Date Time Temp Pulse Resp B/P (MAP) Pulse Ox O2 Delivery O2 Flow Rate FiO2 12/07/17 12:00 97.3 98 20 152/85 97 Nasal Cannula 97.3 12/07/17 10:42 88 18 99 Nasal Cannula 2.0 28 12/07/17 10:42 28 12/07/17 10:41 85 18 96 Nasal Cannula 2.0 28 12/07/17 09:01 159/85 12/07/17 09:01 98 159/85 12/07/17 08:00 102 12/07/17 08:00 97.0 98 19 159/85 98 Nasal Cannula 2.0 97.0 12/07/17 07:20 86 18 99 Nasal Cannula 2.0 28 12/07/17 07:16 Nasal Cannula 2.0 28 12/07/17 07:16 87 Nasal Cannula 2.0 28 12/07/17 07:16 87 18 97 Nasal Cannula 2.0 28 12/07/17 07:16 28 12/07/17 04:00 97.9 101 20 145/81 95 Nasal Cannula 2.0 97.9 12/07/17 04:00 96 12/07/17 03:41 Nasal Cannula 12/07/17 03:41 Nasal Cannula 12/07/17 00:00 98 12/07/17 00:00 97.7 101 20 148/88 94 Nasal Cannula 2.0 97.7 12/06/17 23:18 Nasal Cannula 12/06/17 23:18 Nasal Cannula 12/06/17 20:03 87 18 99 Nasal Cannula 4.0 36 12/06/17 20:00 97.5 90 17 137/78 96 Nasal Cannula 2.0 97.5 12/06/17 20:00 95 12/06/17 19:54 Nasal Cannula 2.0 28 12/06/17 19:54 94 Nasal Cannula 2.0 28 12/06/17 19:54 97 18 94 Nasal Cannula 2.0 28 12/06/17 19:54 28 12/06/17 15:58 98 12/06/17 15:20 99 16 99 Nasal Cannula 2.0 28 12/06/17 15:11 28 12/06/17 15:11 95 18 98 Nasal Cannula 2.0 28 Intake and Output 12/06/17 12/07/17 19:00 07:00 Intake Total 985 ml Output Total 800 ml 1600 ml Balance 185 ml -1600 ml Intake Oral 480 ml IV Total 505 ml Output Urine Total 800 ml 1600 ml # Voids 3 3 Objective General Appearance: no acute distress, other - A/A/O x 3 AA male in NAD HEENT: normocephalic, atraumatic, anicteric, mucous membranes moist Respiratory/Chest: decreased breath sounds Cardiovascular: normal rate, regular rhythm - SR on tele Abdomen: normal bowel sounds, soft, non tender - obese Neurologic/Psychiatric: alert, oriented x 3, responsive Musculoskeletal: normal muscle bulk Microbiology Date/Time Source Procedure Growth Status 12/04/17 22:00 Nasopharynx Influenza Types A,B Antigen (BEULAH) - Final Complete Laboratory Tests 12/07/17 10:45: White Blood Count 10.4, Red Blood Count 4.36L, Hemoglobin 8.7L, Hematocrit 30.3L , Mean Corpuscular Volume 69L, Mean Corpuscular Hemoglobin 19.9L, Mean Corpuscular Hemoglobin Concent 28.6L, Red Cell Distribution Width 22.9H, Platelet Count 243, Mean Platelet Volume 9.3, Neutrophils (%) (Auto) , Lymphocytes (%) (Auto) , Monocytes (%) (Auto) , Eosinophils (%) (Auto) , Basophils (%) (Auto) , Differential Total Cells Counted 100, Neutrophils % ( Manual) 92H, Lymphocytes % (Manual) 2L, Monocytes % (Manual) 6, Eosinophils % ( Manual) 0, Basophils % (Manual) 0, Band Neutrophils 0, Platelet Estimate Adequate, Platelet Morphology Normal, Polychromasia 2+, Hypochromasia 2+, Anisocytosis 2+, Microcytosis 2+, Sodium Level 134L, Potassium Level 4.6, Chloride Level 99, Carbon Dioxide Level 31, Anion Gap 4L, Blood Urea Nitrogen 19H, Creatinine 1.0, Estimat Glomerular Filtration Rate , Glucose Level 153H, Calcium Level 9.5 Current Medications Medications (Trade) Dose Ordered Sig/Eda Route PRN Reason Start Time Stop Time Status Last Admin Dose Admin Acetaminophen (Tylenol) 650 mg Q4H PRN ORAL Mild Pain/Temp > 100.5 12/04/17 09:30 01/03/18 09:29 Al Hydroxide/Mg Hydroxide (Mylanta) 30 ml Q4H PRN ORAL heartburn 12/04/17 09:30 01/03/18 09:29 Albuterol Sulfate (Proventil) 2.5 mg Q4HRT HHN 12/04/17 07:00 12/09/17 06:59 12/07/17 10:41 Amlodipine Besylate (Norvasc) 10 mg DAILY ORAL 12/04/17 09:00 01/03/18 08:59 12/07/17 09:01 Aspirin (ASA) 81 mg DAILY ORAL 12/04/17 09:00 01/03/18 08:59 12/07/17 09:01 Atorvastatin Calcium (Lipitor) 20 mg BEDTIME ORAL 12/04/17 21:00 01/03/18 20:59 12/06/17 21:10 Azithromycin 500 mg/Sodium Chloride 275 ml @ 275 mls/hr DAILY IV 12/04/17 09:00 12/11/17 08:59 12/07/17 08:59 Beclomethasone Dipropionate (Qvar 40 Inhaler) 1 puff TWICE A DAY INH 12/04/17 09:00 01/03/18 08:59 12/07/17 09:21 Ceftriaxone Sodium 1 gm/ Sodium Chloride 55 ml @ 110 mls/hr DAILY IVPB 12/04/17 09:00 12/11/17 08:59 12/07/17 09:00 Dextrose (Dextrose 50%) STAT PRN IV Hypoglycemia 12/04/17 22:00 01/03/18 21:59 Dextrose/Sodium Chloride 1,000 ml @ 60 mls/hr [id number] IV 12/04/17 09:00 01/03/18 08:59 12/07/17 03:07 Docusate Sodium (Colace) 100 mg TWICE A DAY ORAL 12/07/17 09:00 01/06/18 08:59 12/07/17 09:00 Heparin Sodium (Porcine) (Heparin 5000 units/ml) 5,000 units EVERY 12 HOURS SUBQ 12/04/17 09:00 01/03/18 08:59 12/07/17 09:03 Insulin Aspart (NovoLOG) BEFORE MEALS AND HS SUBQ 12/04/17 06:30 01/03/18 06:29 12/07/17 12:00 Insulin Aspart (NovoLOG) 7 units NOVOTIAC SUBQ 12/05/17 16:50 01/04/18 16:49 12/07/17 12:01 Insulin Detemir (Levemir) 30 units BEDTIME SUBQ 12/04/17 22:00 01/03/18 21:59 12/06/17 21:13 Iron Sucrose 100 mg/Sodium Chloride 60 ml @ 240 mls/hr BEDTIME IV 12/05/17 21:00 12/09/17 21:14 12/06/17 21:09 Lactulose (Cephulac) 10 gm THREE TIMES A DAY ORAL 12/07/17 13:00 01/06/18 12:59 Losartan Potassium (Cozaar) 100 mg DAILY ORAL 12/04/17 09:00 01/03/18 08:59 12/07/17 09:01 Magnesium Hydroxide (Mom) 30 ml DAILYPRN PRN ORAL Constipation 12/04/17 09:30 01/03/18 09:29 Methylprednisolone Sodium Succinate (Solu-MEDROL) 40 mg EVERY 12 HOURS IVP 12/04/17 09:00 01/03/18 08:59 12/07/17 09:05 Pantoprazole (Protonix) 40 mg DAILY ORAL 12/04/17 09:00 01/03/18 08:59 12/07/17 09:00 Polyethylene Glycol (Miralax) 17 gm BEDTIME ORAL 12/06/17 21:00 01/05/18 20:59 12/06/17 22:20 Zolpidem Tartrate (Ambien) 5 mg HSPRN PRN ORAL Insomnia 12/04/17 09:00 12/11/17 08:59 Wilfredo (Morissd)Gloria NP Dec 07, 2017 14:01
[2017-12-07] MEDS: Lactulose 10gm/15ml UDC ORAL SCH ×2 (15:16→17:27)
--- NOTE | 2017-12-07 15:23 | Infectious Diseases Prog Note ---
Assessment/Plan Assessment/Plan ASSESSMENT: The patient is a 77-year-old male with: Bronchitis Pneumonia. Chest x-ray: Interstitial marking of right lung and left lung base associated with bronchial wall thickening. Influenza screening.: Neg Smoker. Anemia. ? lower gastrointestinal bleed U S: Coarsened liver echotexture Hypertension Bronchitis Diabetes History of CVA PLAN: continue the patient on Rocephin and Zithromax day # 4 /5 Monitor CBC. Monitor BMP. Monitor chest x-ray. Monitor cultures (blood and sputum). Stool for occult blood. Hem following Rec GI cons Subjective Constitutional: Denies: no symptoms, fever, chills, fatigue, anorexia, drenching sweats, other Allergies: Coded Allergies: No Known Allergies (Unverified , 06/20/14) Objective Vital Signs Last 24 Hour Vital Signs Date Time Temp Pulse Resp B/P (MAP) Pulse Ox O2 Delivery O2 Flow Rate FiO2 12/07/17 15:11 88 18 99 Nasal Cannula 2.0 28 12/07/17 15:11 28 12/07/17 15:09 87 18 95 Nasal Cannula 2.0 28 12/07/17 12:00 97.3 98 20 152/85 97 Nasal Cannula 97.3 12/07/17 12:00 95 12/07/17 10:42 88 18 99 Nasal Cannula 2.0 28 12/07/17 10:42 28 12/07/17 10:41 85 18 96 Nasal Cannula 2.0 28 12/07/17 09:01 159/85 12/07/17 09:01 98 159/85 12/07/17 08:00 102 12/07/17 08:00 97.0 98 19 159/85 98 Nasal Cannula 2.0 97.0 12/07/17 07:20 86 18 99 Nasal Cannula 2.0 28 12/07/17 07:16 Nasal Cannula 2.0 28 12/07/17 07:16 87 Nasal Cannula 2.0 28 12/07/17 07:16 87 18 97 Nasal Cannula 2.0 28 12/07/17 07:16 28 12/07/17 04:00 97.9 101 20 145/81 95 Nasal Cannula 2.0 97.9 12/07/17 04:00 96 12/07/17 03:41 Nasal Cannula 12/07/17 03:41 Nasal Cannula 12/07/17 00:00 98 12/07/17 00:00 97.7 101 20 148/88 94 Nasal Cannula 2.0 97.7 12/06/17 23:18 Nasal Cannula 12/06/17 23:18 Nasal Cannula 12/06/17 20:03 87 18 99 Nasal Cannula 4.0 36 12/06/17 20:00 97.5 90 17 137/78 96 Nasal Cannula 2.0 97.5 12/06/17 20:00 95 12/06/17 19:54 Nasal Cannula 2.0 28 12/06/17 19:54 94 Nasal Cannula 2.0 28 12/06/17 19:54 97 18 94 Nasal Cannula 2.0 28 12/06/17 19:54 28 12/06/17 15:58 98 Height (Feet): 5 Height (Inches): 9.00 Weight (Pounds): 228 HEENT: atraumatic Respiratory/Chest: normal breath sounds Cardiovascular: regular rhythm Abdomen: no organomegaly Microbiology Date/Time Source Procedure Growth Status 12/04/17 22:00 Nasopharynx Influenza Types A,B Antigen (BEULAH) - Final Complete Laboratory Tests Test 12/07/17 10:45 White Blood Count 10.4 K/UL (4.8-10.8) Red Blood Count 4.36 M/UL (4.70-6.10) L Hemoglobin 8.7 G/DL (14.2-18.0) L Hematocrit 30.3 % (42.0-52.0) L Mean Corpuscular Volume 69 FL (80-99) L Mean Corpuscular Hemoglobin 19.9 PG (27.0-31.0) L Mean Corpuscular Hemoglobin Concent 28.6 G/DL (32.0-36.0) L Red Cell Distribution Width 22.9 % (11.6-14.8) H Platelet Count 243 K/UL (150-450) Mean Platelet Volume 9.3 FL (6.5-10.1) Neutrophils (%) (Auto) % (45.0-75.0) Lymphocytes (%) (Auto) % (20.0-45.0) Monocytes (%) (Auto) % (1.0-10.0) Eosinophils (%) (Auto) % (0.0-3.0) Basophils (%) (Auto) % (0.0-2.0) Differential Total Cells Counted 100 Neutrophils % (Manual) 92 % (45-75) H Lymphocytes % (Manual) 2 % (20-45) L Monocytes % (Manual) 6 % (1-10) Eosinophils % (Manual) 0 % (0-3) Basophils % (Manual) 0 % (0-2) Band Neutrophils 0 % (0-8) Platelet Estimate Adequate Platelet Morphology Normal Polychromasia 2+ Hypochromasia 2+ Anisocytosis 2+ Microcytosis 2+ Sodium Level 134 MMOL/L (136-145) L Potassium Level 4.6 MMOL/L (3.5-5.1) Chloride Level 99 MMOL/L (98-107) Carbon Dioxide Level 31 MMOL/L (21-32) Anion Gap 4 mmol/L (5-15) L Blood Urea Nitrogen 19 mg/dL (7-18) H Creatinine 1.0 MG/DL (0.55-1.30) Estimat Glomerular Filtration Rate mL/min (>60) Glucose Level 153 MG/DL (74-106) H Calcium Level 9.5 MG/DL (8.5-10.1) Current Medications Medications (Trade) Dose Ordered Sig/Eda Route PRN Reason Start Time Stop Time Status Last Admin Dose Admin Acetaminophen (Tylenol) 650 mg Q4H PRN ORAL Mild Pain/Temp > 100.5 12/04/17 09:30 01/03/18 09:29 Al Hydroxide/Mg Hydroxide (Mylanta) 30 ml Q4H PRN ORAL heartburn 12/04/17 09:30 01/03/18 09:29 Albuterol Sulfate (Proventil) 2.5 mg Q4HRT HHN 12/04/17 07:00 12/09/17 06:59 12/07/17 15:09 Amlodipine Besylate (Norvasc) 10 mg DAILY ORAL 12/04/17 09:00 01/03/18 08:59 12/07/17 09:01 Aspirin (ASA) 81 mg DAILY ORAL 12/04/17 09:00 01/03/18 08:59 12/07/17 09:01 Atorvastatin Calcium (Lipitor) 20 mg BEDTIME ORAL 12/04/17 21:00 01/03/18 20:59 12/06/17 21:10 Azithromycin 500 mg/Sodium Chloride 275 ml @ 275 mls/hr DAILY IV 12/04/17 09:00 12/11/17 08:59 12/07/17 08:59 Beclomethasone Dipropionate (Qvar 40 Inhaler) 1 puff TWICE A DAY INH 12/04/17 09:00 01/03/18 08:59 12/07/17 09:21 Ceftriaxone Sodium 1 gm/ Sodium Chloride 55 ml @ 110 mls/hr DAILY IVPB 12/04/17 09:00 12/11/17 08:59 12/07/17 09:00 Dextrose (Dextrose 50%) STAT PRN IV Hypoglycemia 12/04/17 22:00 01/03/18 21:59 Dextrose/Sodium Chloride 1,000 ml @ 60 mls/hr [id number] IV 12/04/17 09:00 01/03/18 08:59 12/07/17 03:07 Docusate Sodium (Colace) 100 mg TWICE A DAY ORAL 12/07/17 09:00 01/06/18 08:59 12/07/17 09:00 Heparin Sodium (Porcine) (Heparin 5000 units/ml) 5,000 units EVERY 12 HOURS SUBQ 12/04/17 09:00 01/03/18 08:59 12/07/17 09:03 Insulin Aspart (NovoLOG) BEFORE MEALS AND HS SUBQ 12/04/17 06:30 01/03/18 06:29 12/07/17 12:00 Insulin Aspart (NovoLOG) 7 units NOVOTIAC SUBQ 12/05/17 16:50 01/04/18 16:49 12/07/17 12:01 Insulin Detemir (Levemir) 30 units BEDTIME SUBQ 12/04/17 22:00 01/03/18 21:59 12/06/17 21:13 Iron Sucrose 100 mg/Sodium Chloride 60 ml @ 240 mls/hr BEDTIME IV 12/05/17 21:00 12/09/17 21:14 12/06/17 21:09 Lactulose (Cephulac) 10 gm THREE TIMES A DAY ORAL 12/07/17 13:00 01/06/18 12:59 12/07/17 15:16 Losartan Potassium (Cozaar) 100 mg DAILY ORAL 12/04/17 09:00 01/03/18 08:59 12/07/17 09:01 Magnesium Hydroxide (Mom) 30 ml DAILYPRN PRN ORAL Constipation 12/04/17 09:30 01/03/18 09:29 Methylprednisolone Sodium Succinate (Solu-MEDROL) 40 mg EVERY 12 HOURS IVP 12/04/17 09:00 01/03/18 08:59 12/07/17 09:05 Pantoprazole (Protonix) 40 mg DAILY ORAL 12/04/17 09:00 01/03/18 08:59 12/07/17 09:00 Polyethylene Glycol (Miralax) 17 gm BEDTIME ORAL 12/06/17 21:00 01/05/18 20:59 12/06/17 22:20 Zolpidem Tartrate (Ambien) 5 mg HSPRN PRN ORAL Insomnia 12/04/17 09:00 12/11/17 08:59 FRITZ ARANDA M.D. Dec 07, 2017 15:23
--- NOTE | 2017-12-07 15:29 | Infectious Diseases Prog Note ---
Assessment/Plan Assessment/Plan ASSESSMENT: The patient is a 77-year-old male with: Afbrile NL WBC Bronchitis/ Pneumonia. Chest x-ray: Interstitial marking of right lung and left lung base associated with bronchial wall thickening. Influenza screening.: Neg HIV Neg Hep C Ab + Hep A/B neg Probable Lung cancer CT: Interval growth of a 5 mm left lower lobe lung nodule compared to 06/16 17. Findings suspicious for metastatic disease. Smoker. Anemia. ? lower gastrointestinal bleed U S: Coarsened liver echotexture Hypertension Bronchitis Diabetes History of CVA PLAN: continue the patient on Rocephin and Zithromax day # 4 /5 Monitor CBC. Monitor BMP. Monitor chest x-ray. Monitor cultures (blood and sputum). Stool for occult blood. Hem following GI cons Hep C PCR Subjective Constitutional: Denies: no symptoms, fever, chills, fatigue, anorexia, drenching sweats, other Allergies: Coded Allergies: No Known Allergies (Unverified , 06/20/14) Objective Vital Signs Last 24 Hour Vital Signs Date Time Temp Pulse Resp B/P (MAP) Pulse Ox O2 Delivery O2 Flow Rate FiO2 12/07/17 15:11 88 18 99 Nasal Cannula 2.0 28 12/07/17 15:11 28 12/07/17 15:09 87 18 95 Nasal Cannula 2.0 28 12/07/17 12:00 97.3 98 20 152/85 97 Nasal Cannula 97.3 12/07/17 12:00 95 12/07/17 10:42 88 18 99 Nasal Cannula 2.0 28 12/07/17 10:42 28 12/07/17 10:41 85 18 96 Nasal Cannula 2.0 28 12/07/17 09:01 159/85 12/07/17 09:01 98 159/85 12/07/17 08:00 102 12/07/17 08:00 97.0 98 19 159/85 98 Nasal Cannula 2.0 97.0 12/07/17 07:20 86 18 99 Nasal Cannula 2.0 28 12/07/17 07:16 Nasal Cannula 2.0 28 12/07/17 07:16 87 Nasal Cannula 2.0 28 12/07/17 07:16 87 18 97 Nasal Cannula 2.0 28 12/07/17 07:16 28 12/07/17 04:00 97.9 101 20 145/81 95 Nasal Cannula 2.0 97.9 12/07/17 04:00 96 12/07/17 03:41 Nasal Cannula 12/07/17 03:41 Nasal Cannula 12/07/17 00:00 98 12/07/17 00:00 97.7 101 20 148/88 94 Nasal Cannula 2.0 97.7 12/06/17 23:18 Nasal Cannula 12/06/17 23:18 Nasal Cannula 12/06/17 20:03 87 18 99 Nasal Cannula 4.0 36 12/06/17 20:00 97.5 90 17 137/78 96 Nasal Cannula 2.0 97.5 12/06/17 20:00 95 12/06/17 19:54 Nasal Cannula 2.0 28 12/06/17 19:54 94 Nasal Cannula 2.0 28 12/06/17 19:54 97 18 94 Nasal Cannula 2.0 28 12/06/17 19:54 28 12/06/17 15:58 98 Height (Feet): 5 Height (Inches): 9.00 Weight (Pounds): 228 HEENT: mucous membranes moist Respiratory/Chest: no respiratory distress Cardiovascular: regularly irregular Abdomen: soft, non tender Microbiology Date/Time Source Procedure Growth Status 12/04/17 22:00 Nasopharynx Influenza Types A,B Antigen (BEULAH) - Final Complete Laboratory Tests Test 12/07/17 10:45 White Blood Count 10.4 K/UL (4.8-10.8) Red Blood Count 4.36 M/UL (4.70-6.10) L Hemoglobin 8.7 G/DL (14.2-18.0) L Hematocrit 30.3 % (42.0-52.0) L Mean Corpuscular Volume 69 FL (80-99) L Mean Corpuscular Hemoglobin 19.9 PG (27.0-31.0) L Mean Corpuscular Hemoglobin Concent 28.6 G/DL (32.0-36.0) L Red Cell Distribution Width 22.9 % (11.6-14.8) H Platelet Count 243 K/UL (150-450) Mean Platelet Volume 9.3 FL (6.5-10.1) Neutrophils (%) (Auto) % (45.0-75.0) Lymphocytes (%) (Auto) % (20.0-45.0) Monocytes (%) (Auto) % (1.0-10.0) Eosinophils (%) (Auto) % (0.0-3.0) Basophils (%) (Auto) % (0.0-2.0) Differential Total Cells Counted 100 Neutrophils % (Manual) 92 % (45-75) H Lymphocytes % (Manual) 2 % (20-45) L Monocytes % (Manual) 6 % (1-10) Eosinophils % (Manual) 0 % (0-3) Basophils % (Manual) 0 % (0-2) Band Neutrophils 0 % (0-8) Platelet Estimate Adequate Platelet Morphology Normal Polychromasia 2+ Hypochromasia 2+ Anisocytosis 2+ Microcytosis 2+ Sodium Level 134 MMOL/L (136-145) L Potassium Level 4.6 MMOL/L (3.5-5.1) Chloride Level 99 MMOL/L (98-107) Carbon Dioxide Level 31 MMOL/L (21-32) Anion Gap 4 mmol/L (5-15) L Blood Urea Nitrogen 19 mg/dL (7-18) H Creatinine 1.0 MG/DL (0.55-1.30) Estimat Glomerular Filtration Rate mL/min (>60) Glucose Level 153 MG/DL (74-106) H Calcium Level 9.5 MG/DL (8.5-10.1) Current Medications Medications (Trade) Dose Ordered Sig/Eda Route PRN Reason Start Time Stop Time Status Last Admin Dose Admin Acetaminophen (Tylenol) 650 mg Q4H PRN ORAL Mild Pain/Temp > 100.5 12/04/17 09:30 01/03/18 09:29 Al Hydroxide/Mg Hydroxide (Mylanta) 30 ml Q4H PRN ORAL heartburn 12/04/17 09:30 01/03/18 09:29 Albuterol Sulfate (Proventil) 2.5 mg Q4HRT HHN 12/04/17 07:00 12/09/17 06:59 12/07/17 15:09 Amlodipine Besylate (Norvasc) 10 mg DAILY ORAL 12/04/17 09:00 01/03/18 08:59 12/07/17 09:01 Aspirin (ASA) 81 mg DAILY ORAL 12/04/17 09:00 01/03/18 08:59 12/07/17 09:01 Atorvastatin Calcium (Lipitor) 20 mg BEDTIME ORAL 12/04/17 21:00 01/03/18 20:59 12/06/17 21:10 Azithromycin 500 mg/Sodium Chloride 275 ml @ 275 mls/hr DAILY IV 12/04/17 09:00 12/11/17 08:59 12/07/17 08:59 Beclomethasone Dipropionate (Qvar 40 Inhaler) 1 puff TWICE A DAY INH 12/04/17 09:00 01/03/18 08:59 12/07/17 09:21 Ceftriaxone Sodium 1 gm/ Sodium Chloride 55 ml @ 110 mls/hr DAILY IVPB 12/04/17 09:00 12/11/17 08:59 12/07/17 09:00 Dextrose (Dextrose 50%) STAT PRN IV Hypoglycemia 12/04/17 22:00 01/03/18 21:59 Dextrose/Sodium Chloride 1,000 ml @ 60 mls/hr [id number] IV 12/04/17 09:00 01/03/18 08:59 12/07/17 03:07 Docusate Sodium (Colace) 100 mg TWICE A DAY ORAL 12/07/17 09:00 01/06/18 08:59 12/07/17 09:00 Heparin Sodium (Porcine) (Heparin 5000 units/ml) 5,000 units EVERY 12 HOURS SUBQ 12/04/17 09:00 01/03/18 08:59 12/07/17 09:03 Insulin Aspart (NovoLOG) BEFORE MEALS AND HS SUBQ 12/04/17 06:30 01/03/18 06:29 12/07/17 12:00 Insulin Aspart (NovoLOG) 7 units NOVOTIAC SUBQ 12/05/17 16:50 01/04/18 16:49 12/07/17 12:01 Insulin Detemir (Levemir) 30 units BEDTIME SUBQ 12/04/17 22:00 01/03/18 21:59 12/06/17 21:13 Iron Sucrose 100 mg/Sodium Chloride 60 ml @ 240 mls/hr BEDTIME IV 12/05/17 21:00 12/09/17 21:14 12/06/17 21:09 Lactulose (Cephulac) 10 gm THREE TIMES A DAY ORAL 12/07/17 13:00 01/06/18 12:59 12/07/17 15:16 Losartan Potassium (Cozaar) 100 mg DAILY ORAL 12/04/17 09:00 01/03/18 08:59 12/07/17 09:01 Magnesium Hydroxide (Mom) 30 ml DAILYPRN PRN ORAL Constipation 12/04/17 09:30 01/03/18 09:29 Methylprednisolone Sodium Succinate (Solu-MEDROL) 40 mg EVERY 12 HOURS IVP 12/04/17 09:00 01/03/18 08:59 12/07/17 09:05 Pantoprazole (Protonix) 40 mg DAILY ORAL 12/04/17 09:00 01/03/18 08:59 12/07/17 09:00 Polyethylene Glycol (Miralax) 17 gm BEDTIME ORAL 12/06/17 21:00 01/05/18 20:59 12/06/17 22:20 Zolpidem Tartrate (Ambien) 5 mg HSPRN PRN ORAL Insomnia 12/04/17 09:00 12/11/17 08:59 FRITZ ARANDA M.D. Dec 07, 2017 15:29
[2017-12-07 16:00] VITALS: BP 141/82
[2017-12-07] MEDS ORDERED: Tubing IV Secondary IV ONE (16:34)
[2017-12-07] MEDS ORDERED: NS 275ml ONE ×2 (16:34→18:44)
[2017-12-07] MEDS ORDERED: Tubing Blood Filter IV ONE (18:44)
[2017-12-07] MEDS ORDERED: Milk of Magnesia 30ml Ud ORAL PRN (19:00)
[2017-12-07] MEDS ORDERED: Zolpidem 5mg tab ORAL PRN (19:00)
[2017-12-07 20:00] VITALS: BP 136/79
[2017-12-07] MEDS ORDERED: Levemir Flexpen SUBQ SCH (21:00)
[2017-12-07] MEDS ORDERED: Iron Sucrose 100 MG in NS 55 ML IV SCH (21:00)
[2017-12-07] MEDS ORDERED: Atorvastatin 20mg tab ORAL SCH (21:00)
[2017-12-07] MEDS ORDERED: Miralax 17gm pkt ORAL SCH (21:00)
--- NOTE | 2017-12-07 23:54 | General Progress Note ---
Assessment/Plan Assessment/Plan 1. Anemia of chronic disease. --> In the past, the patient noted to be severely iron deficient. --> Iron levels are low again. Begin the patient on IV iron. --> Once laboratories are drawn, consider GI evaluation. --> The patient most likely has gastrointestinal bleeding. --> anemia workup completed: Iron 9, TIBC 469, B12 132, Folate 14.8 --> Monitor for improvement. Transfuse if hgb <7 --> Does not need transfusion at this time. 2. Anemia due to iron deficiency. --> Begin the patient on iron treatment. --> Begin the patient on IV iron and continue p.o. iron. --> Monitor closely for improvement in iron levels. 3. Leukopenia. Rule out human immunodeficiency virus and hepatitis. Both panels were negative. --> Resolved. --> Trend cbc daily. 4. Mild gastric thickening on prior CAT scan. Closely monitor. 5. Somewhat atrophic liver concerning for cirrhosis on prior CAT scan. 6. Obtain imaging of the liver. --> Abd ultrasound revealed bilateral renal cysts Subjective Date patient seen: Dec 07, 2017 Constitutional: Denies: no symptoms, chills, diaphoresis, fever, malaise, weakness, other HEENT: Denies: no symptoms, eye pain, blurred vision, tearing, double vision, ear pain, ear discharge, nose pain, nose congestion, throat pain, throat swelling, mouth pain, mouth swelling, other Cardiovascular: Denies: no symptoms, chest pain, edema, irregular heart rate, lightheadedness, palpitations, syncope, other Respiratory: Denies: no symptoms, cough, orthopnea, shortness of breath, SOB with excertion, SOB at rest, sputum, stridor, wheezing, other Gastrointestinal/Abdominal: Denies: no symptoms, abdomen distended, abdominal pain, black stools, tarry stools, blood in stool, constipated, diarrhea, difficulty swallowing, nausea, poor appetite, poor fluid intake, rectal bleeding , vomiting, other Genitourinary: Denies: no symptoms, burning, discharge, frequency, flank pain, hematuria, incontinence, pain, urgency, other Neurologic/Psychiatric: Denies: no symptoms, anxiety, depressed, emotional problems, headache, numbness, paresthesia, pre-existing deficit, seizure, tingling, tremors, weakness, other Hematologic/Lymphatic: Reports: anemia Allergies: Coded Allergies: No Known Allergies (Unverified , 06/20/14) Subjective H/H improving. No major events overnight. NAD. Objective Last 24 Hour Vital Signs Date Time Temp Pulse Resp B/P (MAP) Pulse Ox O2 Delivery O2 Flow Rate FiO2 12/07/17 23:45 28 12/07/17 23:45 92 18 99 Nasal Cannula 2.0 28 12/07/17 23:38 83 18 95 Nasal Cannula 2.0 28 12/07/17 20:00 97.9 102 22 136/79 95 97.9 12/07/17 20:00 Nasal Cannula 2.0 12/07/17 19:43 28 12/07/17 19:43 91 18 99 Nasal Cannula 2.0 28 12/07/17 19:38 Nasal Cannula 2.0 28 12/07/17 19:38 95 Nasal Cannula 2.0 28 12/07/17 19:37 90 18 96 Nasal Cannula 2.0 28 12/07/17 16:00 97.0 100 19 141/82 97 Nasal Cannula 2.0 97.0 12/07/17 15:11 88 18 99 Nasal Cannula 2.0 28 12/07/17 15:11 28 12/07/17 15:09 87 18 95 Nasal Cannula 2.0 28 12/07/17 12:00 97.3 98 20 152/85 97 Nasal Cannula 97.3 12/07/17 12:00 95 12/07/17 10:42 88 18 99 Nasal Cannula 2.0 12/07/17 10:42 28 12/07/17 10:41 85 18 96 Nasal Cannula 2.0 28 12/07/17 09:01 159/85 12/07/17 09:01 98 159/85 12/07/17 08:00 102 12/07/17 08:00 97.0 98 19 159/85 98 Nasal Cannula 2.0 97.0 12/07/17 07:20 86 18 99 Nasal Cannula 2.0 12/07/17 07:16 Nasal Cannula 2.0 28 12/07/17 07:16 87 Nasal Cannula 2.0 28 12/07/17 07:16 87 18 97 Nasal Cannula 2.0 28 12/07/17 07:16 28 12/07/17 04:00 97.9 101 20 145/81 95 Nasal Cannula 2.0 97.9 12/07/17 04:00 96 12/07/17 03:41 Nasal Cannula 12/07/17 03:41 Nasal Cannula 12/07/17 00:00 98 12/07/17 00:00 97.7 101 20 148/88 94 Nasal Cannula 2.0 97.7 Intake and Output 12/06/17 12/07/17 19:00 07:00 Intake Total 985 ml Output Total 800 ml 1600 ml Balance 185 ml -1600 ml Intake Oral 480 ml IV Total 505 ml Output Urine Total 800 ml 1600 ml # Voids 3 3 Laboratory Tests 12/07/17 10:45: White Blood Count 10.4, Red Blood Count 4.36L, Hemoglobin 8.7L, Hematocrit 30.3L , Mean Corpuscular Volume 69L, Mean Corpuscular Hemoglobin 19.9L, Mean Corpuscular Hemoglobin Concent 28.6L, Red Cell Distribution Width 22.9H, Platelet Count 243, Mean Platelet Volume 9.3, Neutrophils (%) (Auto) , Lymphocytes (%) (Auto) , Monocytes (%) (Auto) , Eosinophils (%) (Auto) , Basophils (%) (Auto) , Differential Total Cells Counted 100, Neutrophils % ( Manual) 92H, Lymphocytes % (Manual) 2L, Monocytes % (Manual) 6, Eosinophils % ( Manual) 0, Basophils % (Manual) 0, Band Neutrophils 0, Platelet Estimate Adequate, Platelet Morphology Normal, Polychromasia 2+, Hypochromasia 2+, Anisocytosis 2+, Microcytosis 2+, Sodium Level 134L, Potassium Level 4.6, Chloride Level 99, Carbon Dioxide Level 31, Anion Gap 4L, Blood Urea Nitrogen 19H, Creatinine 1.0, Estimat Glomerular Filtration Rate , Glucose Level 153H, Calcium Level 9.5, Hepatitis C Antibody [Pending], Hepatitis C RNA (PCR) IUs/ml [Pending], Hepatitis C RNA (PCR) log IUs/ml [Pending] 12/07/17 19:50: Stool Occult Blood [Pending] Height (Feet): 5 Height (Inches): 9.00 Weight (Pounds): 228 General Appearance: no apparent distress [place] Fountain Dec 07, 2017 23:54
[2017-12-08] VITALS: BP 142/85
[2017-12-08] MEDS: Albuterol ud Inhalation HHN SCH ×4 (03:00→15:46)
[2017-12-08 04:00] VITALS: BP 139/82
[2017-12-08] MEDS: NovoLOG Insulin Flexpen SUBQ SCH ×6 (05:54→16:48)
--- NOTE | 2017-12-08 07:42 | General Progress Note ---
Assessment/Plan Problem List: (1) Diabetes ICD Codes: E11.9 - Type 2 diabetes mellitus without complications SNOMED: 42002419 (2) Hypertension ICD Codes: I10 - Essential (primary) hypertension SNOMED: 59174793 (3) Renal insufficiency ICD Codes: N28.9 - Disorder of kidney and ureter, unspecified SNOMED: 533575696 (4) Pneumonia ICD Codes: J18.9 - Pneumonia, unspecified organism SNOMED: 021320044 Qualifiers: Qualified Codes: J18.1 - Lobar pneumonia, unspecified organism Assessment/Plan continue Levemir 30 units qhs continue Novolog 7 units ac tid continue NISS I will continue to adjust insulin dosage according to BG values and steroid taper Subjective Allergies: Coded Allergies: No Known Allergies (Unverified , 06/20/14) All Systems: reviewed and negative except above Subjective events noted glucose values in fair control without hypoglycemia still on IVSM 40 mg every 12 hours Objective Last 24 Hour Vital Signs Date Time Temp Pulse Resp B/P (MAP) Pulse Ox O2 Delivery O2 Flow Rate FiO2 12/08/17 07:25 97 18 97 Room Air 21 12/08/17 07:25 97 Room Air 21 12/08/17 07:25 Nasal Cannula 2.0 28 12/08/17 04:00 97.1 98 20 139/82 96 Nasal Cannula 2.0 97.1 12/08/17 03:25 Nasal Cannula 12/08/17 03:24 Nasal Cannula 2.0 12/08/17 00:00 97.3 101 22 142/85 95 Nasal Cannula 2.0 97.3 12/07/17 23:45 28 12/07/17 23:45 92 18 99 Nasal Cannula 2.0 28 12/07/17 23:38 83 18 95 Nasal Cannula 2.0 28 12/07/17 20:00 97.9 102 22 136/79 95 97.9 12/07/17 20:00 Nasal Cannula 2.0 12/07/17 19:43 28 12/07/17 19:43 91 18 99 Nasal Cannula 2.0 28 12/07/17 19:38 Nasal Cannula 2.0 28 12/07/17 19:38 95 Nasal Cannula 2.0 28 12/07/17 19:37 90 18 96 Nasal Cannula 2.0 28 12/07/17 16:00 97.0 100 19 141/82 97 Nasal Cannula 2.0 97.0 12/07/17 15:11 88 18 99 Nasal Cannula 2.0 28 12/07/17 15:11 28 12/07/17 15:09 87 18 95 Nasal Cannula 2.0 28 12/07/17 12:00 97.3 98 20 152/85 97 Nasal Cannula 97.3 12/07/17 12:00 95 12/07/17 10:42 88 18 99 Nasal Cannula 2.0 28 12/07/17 10:42 28 12/07/17 10:41 85 18 96 Nasal Cannula 2.0 28 12/07/17 09:01 159/85 12/07/17 09:01 98 159/85 12/07/17 08:00 102 12/07/17 08:00 97.0 98 19 159/85 98 Nasal Cannula 2.0 97.0 Intake and Output 12/07/17 12/08/17 19:00 07:00 Intake Total 740 ml Balance 740 ml Intake Oral 200 ml IV Total 540 ml # Voids 4 # Bowel Movements 1 3 Laboratory Tests 12/07/17 10:45: White Blood Count 10.4, Red Blood Count 4.36L, Hemoglobin 8.7L, Hematocrit 30.3L , Mean Corpuscular Volume 69L, Mean Corpuscular Hemoglobin 19.9L, Mean Corpuscular Hemoglobin Concent 28.6L, Red Cell Distribution Width 22.9H, Platelet Count 243, Mean Platelet Volume 9.3, Neutrophils (%) (Auto) , Lymphocytes (%) (Auto) , Monocytes (%) (Auto) , Eosinophils (%) (Auto) , Basophils (%) (Auto) , Differential Total Cells Counted 100, Neutrophils % ( Manual) 92H, Lymphocytes % (Manual) 2L, Monocytes % (Manual) 6, Eosinophils % ( Manual) 0, Basophils % (Manual) 0, Band Neutrophils 0, Platelet Estimate Adequate, Platelet Morphology Normal, Polychromasia 2+, Hypochromasia 2+, Anisocytosis 2+, Microcytosis 2+, Sodium Level 134L, Potassium Level 4.6, Chloride Level 99, Carbon Dioxide Level 31, Anion Gap 4L, Blood Urea Nitrogen 19H, Creatinine 1.0, Estimat Glomerular Filtration Rate , Glucose Level 153H, Calcium Level 9.5, Hepatitis C Antibody [Pending], Hepatitis C RNA (PCR) IUs/ml [Pending], Hepatitis C RNA (PCR) log IUs/ml [Pending] 12/07/17 19:50: Stool Occult Blood [Pending] Height (Feet): 5 Height (Inches): 9.00 Weight (Pounds): 228 General Appearance: no apparent distress EENT: pale conjunctivae Neck: normal alignment Cardiovascular: normal rate Respiratory/Chest: decreased breath sounds Abdomen: normal bowel sounds Edema: 1+ Arm (L), 1+ Arm (R), 1+ Leg (L), 1+ Leg (R), 1+ Pedal (L), 1+ Pedal ( R), 1+ Generalized Objective Current Medications Medications (Trade) Dose Ordered Sig/Eda Route PRN Reason Start Time Stop Time Status Last Admin Dose Admin Acetaminophen (Tylenol) 650 mg Q4H PRN ORAL Mild Pain/Temp > 100.5 12/07/17 21:30 01/03/18 09:29 Al Hydroxide/Mg Hydroxide (Mylanta) 30 ml Q4H PRN ORAL heartburn 12/07/17 21:30 01/03/18 09:29 Albuterol Sulfate (Proventil) 2.5 mg Q4HRT HHN 12/07/17 19:00 12/09/17 06:59 12/08/17 07:25 Amlodipine Besylate (Norvasc) 10 mg DAILY ORAL 12/08/17 09:00 01/03/18 08:59 Aspirin (ASA) 81 mg DAILY ORAL 12/08/17 09:00 01/03/18 08:59 Atorvastatin Calcium (Lipitor) 20 mg BEDTIME ORAL 12/07/17 21:00 01/03/18 20:59 12/07/17 20:34 Azithromycin 500 mg/Sodium Chloride 275 ml @ 275 mls/hr DAILY IV 12/08/17 09:00 12/11/17 08:59 Beclomethasone Dipropionate (Qvar 40 Inhaler) 1 puff TWICE A DAY INH 12/08/17 09:00 01/03/18 08:59 Ceftriaxone Sodium 1 gm/ Sodium Chloride 55 ml @ 110 mls/hr DAILY@1000 IVPB 12/08/17 10:00 12/15/17 09:59 Dextrose (Dextrose 50%) STAT PRN IV Hypoglycemia 12/07/17 22:00 01/03/18 21:59 Dextrose/Sodium Chloride 1,000 ml @ 60 mls/hr [id number] IV 12/07/17 18:45 01/03/18 08:59 12/07/17 20:33 Docusate Sodium (Colace) 100 mg TWICE A DAY ORAL 12/08/17 09:00 01/06/18 08:59 Heparin Sodium (Porcine) (Heparin 5000 units/ml) 5,000 units EVERY 12 HOURS SUBQ 12/07/17 21:00 01/03/18 08:59 12/07/17 20:38 Insulin Aspart (NovoLOG) BEFORE MEALS AND HS SUBQ 12/07/17 21:00 01/03/18 06:29 12/08/17 05:54 Insulin Aspart (NovoLOG) 7 units NOVOTIAC SUBQ 12/08/17 06:30 01/04/18 16:49 12/08/17 05:54 Insulin Detemir (Levemir) 30 units BEDTIME SUBQ 12/07/17 21:00 01/03/18 21:59 12/07/17 20:49 Iron Sucrose 100 mg/Sodium Chloride 60 ml @ 240 mls/hr BEDTIME IV 12/07/17 21:00 12/09/17 21:01 12/07/17 20:33 Lactulose (Cephulac) 10 gm THREE TIMES A DAY ORAL 12/08/17 09:00 01/06/18 12:59 Losartan Potassium (Cozaar) 100 mg DAILY ORAL 12/08/17 09:00 01/03/18 08:59 Magnesium Hydroxide (Mom) 30 ml DAILYPRN PRN ORAL Constipation 12/07/17 19:00 01/06/18 18:59 Methylprednisolone Sodium Succinate (Solu-MEDROL) 40 mg EVERY 12 HOURS IVP 12/07/17 21:00 01/03/18 08:59 12/07/17 20:33 Pantoprazole (Protonix) 40 mg DAILY ORAL 12/08/17 09:00 01/03/18 08:59 Polyethylene Glycol (Miralax) 17 gm BEDTIME ORAL 12/07/17 21:00 01/05/18 20:59 Zolpidem Tartrate (Ambien) 5 mg HSPRN PRN ORAL Insomnia 12/07/17 19:00 12/14/17 18:59 Item Value Date Time Bedside Blood Glucose 163 mg/dl H 12/08/17 0631 Bedside Blood Glucose 105 mg/dl 12/07/17 2100 Bedside Blood Glucose 241 mg/dl H 12/07/17 1724 Bedside Blood Glucose 147 mg/dl H 12/07/17 1201 Bedside Blood Glucose 127 mg/dl H 12/07/17 0614 UVALDO TORRES 5, 2018 07:42
[2017-12-08 08:00] VITALS: BP 153/92
[2017-12-08 08:20] LABS: HEMATOCRIT 28.9 % (42.0-52.0); HEMOGLOBIN 8.4 G/DL (14.2-18.0); MEAN CORPUSCULAR VOLUME 69 FL (80-99); PLATELET COUNT 234 K/UL (150-450); RED BLOOD COUNT 4.21 M/UL (4.70-6.10); RED CELL DISTRIBUTION WIDTH 23.4 % (11.6-14.8); WHITE BLOOD COUNT 9.8 K/UL (4.8-10.8)
[2017-12-08 08:25] LABS: ANION GAP 4 mmol/L (5-15); BLOOD UREA NITROGEN 14 mg/dL (7-18); CALCIUM 9.3 MG/DL (8.5-10.1); CARBON DIOXIDE 32 MMOL/L (21-32); CHLORIDE 99 MMOL/L (98-107); POTASSIUM 4.6 MMOL/L (3.5-5.1); SODIUM 135 MMOL/L (136-145)
[2017-12-08] MEDS ORDERED: Aspirin Baby 81mg ORAL SCH (09:00)
[2017-12-08] MEDS ORDERED: Azithromycin 500 MG in NS 275 ML IV SCH (09:00)
[2017-12-08] MEDS ORDERED: Qvar 40mcg Inhaler 6.8 gm INH SCH (09:00)
[2017-12-08] MEDS ORDERED: Losartan 50mg tab ORAL SCH (09:00)
[2017-12-08] MEDS: Docusate 100mg cap ORAL SCH ×2 (09:00→18:00)
[2017-12-08] MEDS: Lactulose 10gm/15ml UDC ORAL SCH ×3 (09:16→18:00)
[2017-12-08] MEDS: Solu-MEDROL 40mg Inj IVP SCH (09:19)
[2017-12-08] MEDS: Heparin 5000 units/ml inj SUBQ SCH (09:31)
[2017-12-08] MEDS ORDERED: cefTRIAXone 1 GM in NS 55 ML IVPB SCH (10:00)
[2017-12-08] MEDS: D5 1/2NS 1,000 ML IV SCH (11:25)
--- NOTE | 2017-12-08 11:46 | GI Progress Note ---
Assessment/Plan Problems: (1) Hepatitis C ICD Codes: B19.20 - Unspecified viral hepatitis C without hepatic coma SNOMED: 11735924 (2) Iron deficiency ICD Codes: E61.1 - Iron deficiency SNOMED: 80408938 (3) Anemia ICD Codes: D64.9 - Anemia, unspecified SNOMED: 093888189 Qualifiers: Qualified Codes: D64.9 - Anemia, unspecified (4) Diabetes ICD Codes: E11.9 - Type 2 diabetes mellitus without complications SNOMED: 80727956 Status: stable Status Narrative Discussed with Dr. Watts. Assessment/Plan okay for DC per GI standpoint prn transfusions iv iron adv diet bowel regime outpatient Hep C, breath test for H. Pylori, and capsule endoscopy The patient was seen and examined at bedside and all new and available data was reviewed in the patients chart. I agree with the above findings, impression and plan. (Patient seen earlier today. Signature stamp does not reflect patient encounter time.). - Tiffany Watts MD Subjective Gastrointestinal/Abdominal: Reports: no symptoms Objective Last 24 Hour Vital Signs Date Time Temp Pulse Resp B/P (MAP) Pulse Ox O2 Delivery O2 Flow Rate FiO2 12/08/17 11:08 90 16 99 Room Air 21 12/08/17 10:58 85 18 97 Room Air 21 12/08/17 09:15 139/82 12/08/17 09:15 100 139/82 12/08/17 08:00 97.9 118 20 153/92 96 Nasal Cannula 2.0 97.9 12/08/17 07:35 100 18 99 Room Air 21 12/08/17 07:35 12/08/17 07:25 97 18 97 Room Air 21 12/08/17 07:25 97 Room Air 21 12/08/17 07:25 Nasal Cannula 2.0 28 12/08/17 04:00 97.1 98 20 139/82 96 Nasal Cannula 2.0 97.1 12/08/17 03:25 Nasal Cannula 12/08/17 03:24 Nasal Cannula 2.0 12/08/17 00:00 97.3 101 22 142/85 95 Nasal Cannula 2.0 97.3 12/07/17 23:45 28 12/07/17 23:45 92 18 99 Nasal Cannula 2.0 28 12/07/17 23:38 83 18 95 Nasal Cannula 2.0 28 12/07/17 20:00 97.9 102 22 136/79 95 97.9 12/07/17 20:00 Nasal Cannula 2.0 12/07/17 19:43 28 12/07/17 19:43 91 18 99 Nasal Cannula 2.0 28 12/07/17 19:38 Nasal Cannula 2.0 28 12/07/17 19:38 95 Nasal Cannula 2.0 28 12/07/17 19:37 90 18 96 Nasal Cannula 2.0 28 12/07/17 16:00 97.0 100 19 141/82 97 Nasal Cannula 2.0 97.0 12/07/17 15:11 88 18 99 Nasal Cannula 2.0 28 12/07/17 15:11 28 12/07/17 15:09 87 18 95 Nasal Cannula 2.0 28 12/07/17 12:00 97.3 98 20 152/85 97 Nasal Cannula 97.3 12/07/17 12:00 95 Intake and Output 12/07/17 12/08/17 19:00 07:00 Intake Total 740 ml Balance 740 ml Intake Oral 200 ml IV Total 540 ml # Voids 4 # Bowel Movements 1 3 Laboratory Tests Test 12/07/17 19:50 12/08/17 05:55 Stool Occult Blood Pending White Blood Count 9.8 K/UL (4.8-10.8) Red Blood Count 4.21 M/UL (4.70-6.10) L Hemoglobin 8.4 G/DL (14.2-18.0) L Hematocrit 28.9 % (42.0-52.0) L Mean Corpuscular Volume 69 FL (80-99) L Mean Corpuscular Hemoglobin 20.0 PG (27.0-31.0) L Mean Corpuscular Hemoglobin Concent 29.1 G/DL (32.0-36.0) L Red Cell Distribution Width 23.4 % (11.6-14.8) H Platelet Count 234 K/UL (150-450) Mean Platelet Volume 8.1 FL (6.5-10.1) Neutrophils (%) (Auto) % (45.0-75.0) Lymphocytes (%) (Auto) % (20.0-45.0) Monocytes (%) (Auto) % (1.0-10.0) Eosinophils (%) (Auto) % (0.0-3.0) Basophils (%) (Auto) % (0.0-2.0) Differential Total Cells Counted 100 Neutrophils % (Manual) 89 % (45-75) H Lymphocytes % (Manual) 7 % (20-45) L Monocytes % (Manual) 4 % (1-10) Eosinophils % (Manual) 0 % (0-3) Basophils % (Manual) 0 % (0-2) Band Neutrophils 0 % (0-8) Platelet Estimate Adequate Platelet Morphology Normal Polychromasia 1+ Hypochromasia 1+ Anisocytosis 2+ Microcytosis 2+ Sodium Level 135 MMOL/L (136-145) L Potassium Level 4.6 MMOL/L (3.5-5.1) Chloride Level 99 MMOL/L (98-107) Carbon Dioxide Level 32 MMOL/L (21-32) Anion Gap 4 mmol/L (5-15) L Blood Urea Nitrogen 14 mg/dL (7-18) Creatinine 1.0 MG/DL (0.55-1.30) Estimat Glomerular Filtration Rate mL/min (>60) Glucose Level 142 MG/DL (74-106) H Calcium Level 9.3 MG/DL (8.5-10.1) Height (Feet): 5 Height (Inches): 9.00 Weight (Pounds): 228 General Appearance: WD/WN, no apparent distress, alert Cardiovascular: normal rate Respiratory/Chest: normal breath sounds, no respiratory distress Abdominal Exam: normal bowel sounds, non tender, soft Extremities: normal range of motion, non-tender Kerry Daniel N.PParish Dec 08, 2017 11:46 ZOILA WATTS Dec 16, 2017 13:26
[2017-12-08 12:00] VITALS: BP_SYST 138; BP_SYST 139; BP_DIAS 72; BP_DIAS 82
--- NOTE | 2017-12-08 13:56 | General Progress Note ---
Assessment/Plan Problem List: (1) HTN (hypertension) ICD Codes: I10 - Essential (primary) hypertension SNOMED: 21197562 (2) UTI (urinary tract infection) ICD Codes: N39.0 - Urinary tract infection, site not specified SNOMED: 82736309 (3) Anemia ICD Codes: D64.9 - Anemia, unspecified SNOMED: 460324155 Qualifiers: Qualified Codes: D64.9 - Anemia, unspecified (4) Sepsis ICD Codes: A41.9 - Sepsis, unspecified organism SNOMED: 31702037 Qualifiers: Qualified Codes: A41.9 - Sepsis, unspecified organism (5) Diabetes ICD Codes: E11.9 - Type 2 diabetes mellitus without complications SNOMED: 48363822 (6) Hypertension ICD Codes: I10 - Essential (primary) hypertension SNOMED: 03381032 (7) Pneumonia ICD Codes: J18.9 - Pneumonia, unspecified organism SNOMED: 068272362 Qualifiers: Qualified Codes: J18.1 - Lobar pneumonia, unspecified organism Status: stable Assessment/Plan 02 pulm tx abx transfuse prn gi hem f/u cbc bmp am dc if clear Subjective Constitutional: Reports: weakness Allergies: Coded Allergies: No Known Allergies (Unverified , 06/20/14) All Systems: reviewed and negative except above Subjective o2nc sleepy in bed Objective Last 24 Hour Vital Signs Date Time Temp Pulse Resp B/P (MAP) Pulse Ox O2 Delivery O2 Flow Rate FiO2 12/08/17 12:00 97.5 95 19 138/72 97 97.5 12/08/17 11:08 90 16 99 Room Air 12/08/17 10:58 85 18 97 Room Air 12/08/17 09:15 139/82 12/08/17 09:15 100 139/82 12/08/17 08:00 97.9 118 20 153/92 96 Nasal Cannula 2.0 97.9 12/08/17 07:35 100 18 99 Room Air 12/08/17 07:35 12/08/17 07:25 97 18 97 Room Air 21 12/08/17 07:25 97 Room Air 21 12/08/17 07:25 Nasal Cannula 2.0 28 12/08/17 04:00 97.1 98 20 139/82 96 Nasal Cannula 2.0 97.1 12/08/17 03:25 Nasal Cannula 12/08/17 03:24 Nasal Cannula 2.0 12/08/17 00:00 97.3 101 22 142/85 95 Nasal Cannula 2.0 97.3 12/07/17 23:45 28 12/07/17 23:45 92 18 99 Nasal Cannula 2.0 28 12/07/17 23:38 83 18 95 Nasal Cannula 2.0 28 12/07/17 20:00 97.9 102 22 136/79 95 97.9 12/07/17 20:00 Nasal Cannula 2.0 12/07/17 19:43 28 12/07/17 19:43 91 18 99 Nasal Cannula 2.0 28 12/07/17 19:38 Nasal Cannula 2.0 28 12/07/17 19:38 95 Nasal Cannula 2.0 28 12/07/17 19:37 90 18 96 Nasal Cannula 2.0 28 12/07/17 16:00 97.0 100 19 141/82 97 Nasal Cannula 2.0 97.0 12/07/17 15:11 88 18 99 Nasal Cannula 2.0 28 12/07/17 15:11 28 12/07/17 15:09 87 18 95 Nasal Cannula 2.0 28 Intake and Output 12/07/17 12/08/17 19:00 07:00 Intake Total 740 ml Balance 740 ml Intake Oral 200 ml IV Total 540 ml # Voids 4 # Bowel Movements 1 3 Laboratory Tests 12/07/17 19:50: Stool Occult Blood Positive 12/08/17 05:55: White Blood Count 9.8, Red Blood Count 4.21L, Hemoglobin 8.4L, Hematocrit 28.9L , Mean Corpuscular Volume 69L, Mean Corpuscular Hemoglobin 20.0L, Mean Corpuscular Hemoglobin Concent 29.1L, Red Cell Distribution Width 23.4H, Platelet Count 234, Mean Platelet Volume 8.1, Neutrophils (%) (Auto) , Lymphocytes (%) (Auto) , Monocytes (%) (Auto) , Eosinophils (%) (Auto) , Basophils (%) (Auto) , Differential Total Cells Counted 100, Neutrophils % ( Manual) 89H, Lymphocytes % (Manual) 7L, Monocytes % (Manual) 4, Eosinophils % ( Manual) 0, Basophils % (Manual) 0, Band Neutrophils 0, Platelet Estimate Adequate, Platelet Morphology Normal, Polychromasia 1+, Hypochromasia 1+, Anisocytosis 2+, Microcytosis 2+, Sodium Level 135L, Potassium Level 4.6, Chloride Level 99, Carbon Dioxide Level 32, Anion Gap 4L, Blood Urea Nitrogen 14 , Creatinine 1.0, Estimat Glomerular Filtration Rate , Glucose Level 142H, Calcium Level 9.3 Height (Feet): 5 Height (Inches): 9.00 Weight (Pounds): 228 General Appearance: lethargic EENT: normal ENT inspection Neck: normal alignment Cardiovascular: normal peripheral pulses, normal rate, regular rhythm Respiratory/Chest: chest wall non-tender, lungs clear, normal breath sounds Abdomen: normal bowel sounds, non tender, soft Extremities: normal inspection Edema: no edema noted Arm (L), no edema noted Arm (R), no edema noted Leg (L), no edema noted Leg (R), no edema noted Pedal (L), no edema noted Pedal (R), no edema noted Generalized Neurologic: motor weakness Skin: normal pigmentation, warm/dry SOLEDAD MORRIS Dec 08, 2017 13:56
--- NOTE | 2017-12-08 15:36 | Pulmonology Progress Note ---
Assessment/Plan Problems: (1) COPD with acute exacerbation (2) Pneumonia (3) HTN (hypertension) Assessment/Plan improving check sputum on sterids ok to dc home with close outpatient f/u Subjective ROS Limited/Unobtainable: No Constitutional: Reports: no symptoms HEENT: Repors: no symptoms Respiratory: Reports: no symptoms Allergies: Coded Allergies: No Known Allergies (Unverified , 06/20/14) Objective Last 24 Hour Vital Signs Date Time Temp Pulse Resp B/P (MAP) Pulse Ox O2 Delivery O2 Flow Rate FiO2 12/08/17 12:01 Room Air 12/08/17 12:00 97.5 95 19 138/72 97 97.5 12/08/17 11:08 90 16 99 Room Air 21 12/08/17 10:58 85 18 97 Room Air 21 12/08/17 09:15 139/82 12/08/17 09:15 100 139/82 12/08/17 08:00 97.9 118 20 153/92 96 Nasal Cannula 2.0 97.9 12/08/17 07:35 100 18 99 Room Air 21 12/08/17 07:35 12/08/17 07:25 97 18 97 Room Air 21 12/08/17 07:25 97 Room Air 21 12/08/17 07:25 Nasal Cannula 2.0 28 12/08/17 04:00 97.1 98 20 139/82 96 Nasal Cannula 2.0 97.1 12/08/17 03:25 Nasal Cannula 12/08/17 03:24 Nasal Cannula 2.0 12/08/17 00:00 97.3 101 22 142/85 95 Nasal Cannula 2.0 97.3 12/07/17 23:45 28 12/07/17 23:45 92 18 99 Nasal Cannula 2.0 28 12/07/17 23:38 83 18 95 Nasal Cannula 2.0 28 12/07/17 20:00 97.9 102 22 136/79 95 97.9 12/07/17 20:00 Nasal Cannula 2.0 12/07/17 19:43 28 12/07/17 19:43 91 18 99 Nasal Cannula 2.0 28 12/07/17 19:38 Nasal Cannula 2.0 28 12/07/17 19:38 95 Nasal Cannula 2.0 28 12/07/17 19:37 90 18 96 Nasal Cannula 2.0 28 12/07/17 16:00 97.0 100 19 141/82 97 Nasal Cannula 2.0 97.0 Intake and Output 12/07/17 12/08/17 19:00 07:00 Intake Total 740 ml Balance 740 ml Intake Oral 200 ml IV Total 540 ml # Voids 4 # Bowel Movements 1 3 Objective General Appearance: WD/WN, Lines, tubes and drains: peripheral HEENT: normocephalic, atraumatic Neck: non-tender, normal alignment, supple Respiratory/Chest: chest wall non-tender, loud rhonchi Breasts: no masses Cardiovascular/Chest: normal peripheral pulses, normal rate Abdomen: normal bowel sounds, non tender Genitourinary/Rectal: normal genital exam, normal rectal exam Extremities: normal range of motion, non-tender Skin Exam: normal pigmentation Neurologic: candlemaker 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, Laboratory Tests 12/07/17 19:50: Stool Occult Blood Positive 12/08/17 05:55: White Blood Count 9.8, Red Blood Count 4.21L, Hemoglobin 8.4L, Hematocrit 28.9L , Mean Corpuscular Volume 69L, Mean Corpuscular Hemoglobin 20.0L, Mean Corpuscular Hemoglobin Concent 29.1L, Red Cell Distribution Width 23.4H, Platelet Count 234, Mean Platelet Volume 8.1, Neutrophils (%) (Auto) , Lymphocytes (%) (Auto) , Monocytes (%) (Auto) , Eosinophils (%) (Auto) , Basophils (%) (Auto) , Differential Total Cells Counted 100, Neutrophils % ( Manual) 89H, Lymphocytes % (Manual) 7L, Monocytes % (Manual) 4, Eosinophils % ( Manual) 0, Basophils % (Manual) 0, Band Neutrophils 0, Platelet Estimate Adequate, Platelet Morphology Normal, Polychromasia 1+, Hypochromasia 1+, Anisocytosis 2+, Microcytosis 2+, Sodium Level 135L, Potassium Level 4.6, Chloride Level 99, Carbon Dioxide Level 32, Anion Gap 4L, Blood Urea Nitrogen 14 , Creatinine 1.0, Estimat Glomerular Filtration Rate , Glucose Level 142H, Calcium Level 9.3 Current Medications Medications (Trade) Dose Ordered Sig/Eda Route PRN Reason Start Time Stop Time Status Last Admin Dose Admin Acetaminophen (Tylenol) 650 mg Q4H PRN ORAL Mild Pain/Temp > 100.5 3/4/18 21:30 01/03/18 09:29 Al Hydroxide/Mg Hydroxide (Mylanta) 30 ml Q4H PRN ORAL heartburn 12/07/17 21:30 01/03/18 09:29 Albuterol Sulfate (Proventil) 2.5 mg Q4HRT HHN 12/07/17 19:00 12/09/17 06:59 12/08/17 10:58 Amlodipine Besylate (Norvasc) 10 mg DAILY ORAL 12/08/17 09:00 01/03/18 08:59 12/08/17 09:15 Aspirin (ASA) 81 mg DAILY ORAL 12/08/17 09:00 01/03/18 08:59 12/08/17 09:14 Atorvastatin Calcium (Lipitor) 20 mg BEDTIME ORAL 12/07/17 21:00 01/03/18 20:59 12/07/17 20:34 Azithromycin 500 mg/Sodium Chloride 275 ml @ 275 mls/hr DAILY IV 12/08/17 09:00 12/11/17 08:59 12/08/17 09:14 Beclomethasone Dipropionate (Qvar 40 Inhaler) 1 puff TWICE A DAY INH 12/08/17 09:00 01/03/18 08:59 12/08/17 08:41 Ceftriaxone Sodium 1 gm/ Sodium Chloride 55 ml @ 110 mls/hr DAILY@1000 IVPB 12/08/17 10:00 12/15/17 09:59 12/08/17 11:12 Dextrose (Dextrose 50%) STAT PRN IV Hypoglycemia 12/07/17 22:00 01/03/18 21:59 Docusate Sodium (Colace) 100 mg TWICE A DAY ORAL 12/08/17 09:00 01/06/18 08:59 Heparin Sodium (Porcine) (Heparin 5000 units/ml) 5,000 units EVERY 12 HOURS SUBQ 12/07/17 21:00 01/03/18 08:59 12/08/17 09:31 Insulin Aspart (NovoLOG) BEFORE MEALS AND HS SUBQ 12/07/17 21:00 01/03/18 06:29 12/08/17 12:15 Insulin Aspart (NovoLOG) 7 units NOVOTIAC SUBQ 12/08/17 06:30 01/04/18 16:49 12/08/17 12:17 Insulin Detemir (Levemir) 30 units BEDTIME SUBQ 12/07/17 21:00 01/03/18 21:59 12/07/17 20:49 Iron Sucrose 100 mg/Sodium Chloride 60 ml @ 240 mls/hr BEDTIME IV 12/08/17 21:00 12/12/17 21:14 Lactulose (Cephulac) 10 gm THREE TIMES A DAY ORAL 12/08/17 09:00 01/06/18 12:59 12/08/17 09:16 Losartan Potassium (Cozaar) 100 mg DAILY ORAL 12/08/17 09:00 01/03/18 08:59 12/08/17 09:15 Magnesium Hydroxide (Mom) 30 ml DAILYPRN PRN ORAL Constipation 12/07/17 19:00 01/06/18 18:59 Methylprednisolone Sodium Succinate (Solu-MEDROL) 40 mg EVERY 12 HOURS IVP 12/07/17 21:00 01/03/18 08:59 12/08/17 09:19 Pantoprazole (Protonix) 40 mg DAILY ORAL 12/08/17 09:00 01/03/18 08:59 12/08/17 09:15 Polyethylene Glycol (Miralax) 17 gm BEDTIME ORAL 12/07/17 21:00 01/05/18 20:59 Zolpidem Tartrate (Ambien) 5 mg HSPRN PRN ORAL Insomnia 12/07/17 19:00 12/14/17 18:59 FATOUMATA BUCHANAN Dec 08, 2017 15:36
[2017-12-08 16:00] VITALS: BP 128/91
[2017-12-08] MEDS ORDERED: AMLODIPINE BESY10 MG ORAL (16:06)
[2017-12-08] MEDS ORDERED: ATORVASTATIN CA20 MG ORAL (16:07)
[2017-12-08] MEDS ORDERED: NOVOLOG100 UNITS1 (16:07)
[2017-12-08] MEDS ORDERED: PROTONIX40 MG ORAL (16:08)
[2017-12-08] MEDS ORDERED: LOSARTAN POTASS50 MG ORAL (16:08)
[2017-12-08] MEDS ORDERED: QVAR7.3 GM INH (16:08)
[2017-12-08] MEDS ORDERED: COLACE100 MG ORAL (16:09)
[2017-12-08] MEDS ORDERED: LACTULOSE10 GM/153 PO (16:09)
[2017-12-08] MEDS ORDERED: Tubing IV Secondary IV ONE ×2 (18:29)
[2017-12-08] MEDS ORDERED: D5 1/2NS 1000ml IV ONE (18:29)
[2017-12-08] MEDS ORDERED: Iron Sucrose 100 MG in NS 55 ML IV SCH (21:00)
--- NOTE | 2017-12-08 21:19 | Infectious Diseases Prog Note ---
Assessment/Plan Assessment/Plan ASSESSMENT: The patient is a 77-year-old male with: Afbrile NL WBC Bronchitis/ Pneumonia. Chest x-ray: Interstitial marking of right lung and left lung base associated with bronchial wall thickening. Influenza screening.: Neg HIV Neg Hep C Ab + Hep A/B neg Probable Lung cancer CT: Interval growth of a 5 mm left lower lobe lung nodule compared to 06/16 17. Findings suspicious for metastatic disease. Smoker. Anemia. ? lower gastrointestinal bleed U S: Coarsened liver echotexture Hypertension Bronchitis Diabetes History of CVA PLAN: continue the patient on Rocephin and Zithromax day # 5 ok to dC pt off of Ab Rx ( Linda medina RN ) Monitor CBC. Monitor BMP. Monitor chest x-ray. Monitor cultures (blood and sputum). Stool for occult blood. Hem following GI cons Hep C PCR late entry Subjective Constitutional: Denies: no symptoms, fever, chills, fatigue, anorexia, drenching sweats, other Allergies: Coded Allergies: No Known Allergies (Unverified , 06/20/14) Objective Vital Signs Last 24 Hour Vital Signs Date Time Temp Pulse Resp B/P (MAP) Pulse Ox O2 Delivery O2 Flow Rate FiO2 12/08/17 16:00 97.9 96 19 128/91 99 97.9 12/08/17 15:48 90 16 99 Nasal Cannula 2.0 28 12/08/17 15:40 86 16 96 Nasal Cannula 2.0 28 12/08/17 12:01 Room Air 12/08/17 12:00 97.5 95 19 138/72 97 97.5 12/08/17 11:08 90 16 99 Room Air 12/08/17 10:58 85 18 97 Room Air 12/08/17 09:15 139/82 12/08/17 09:15 100 139/82 12/08/17 08:00 97.9 118 20 153/92 96 Nasal Cannula 2.0 97.9 12/08/17 07:35 100 18 99 Room Air 21 12/08/17 07:35 12/08/17 07:25 97 18 97 Room Air 21 12/08/17 07:25 97 Room Air 21 12/08/17 07:25 Nasal Cannula 2.0 28 12/08/17 04:00 97.1 98 20 139/82 96 Nasal Cannula 2.0 97.1 12/08/17 03:25 Nasal Cannula 12/08/17 03:24 Nasal Cannula 2.0 12/08/17 00:00 97.3 101 22 142/85 95 Nasal Cannula 2.0 97.3 12/07/17 23:45 28 12/07/17 23:45 92 18 99 Nasal Cannula 2.0 28 12/07/17 23:38 83 18 95 Nasal Cannula 2.0 28 Height (Feet): 5 Height (Inches): 9.00 Weight (Pounds): 228 HEENT: anicteric Respiratory/Chest: lungs clear Cardiovascular: normal rate Abdomen: non distended Laboratory Tests Test 12/08/17 05:55 White Blood Count 9.8 K/UL (4.8-10.8) Red Blood Count 4.21 M/UL (4.70-6.10) L Hemoglobin 8.4 G/DL (14.2-18.0) L Hematocrit 28.9 % (42.0-52.0) L Mean Corpuscular Volume 69 FL (80-99) L Mean Corpuscular Hemoglobin 20.0 PG (27.0-31.0) L Mean Corpuscular Hemoglobin Concent 29.1 G/DL (32.0-36.0) L Red Cell Distribution Width 23.4 % (11.6-14.8) H Platelet Count 234 K/UL (150-450) Mean Platelet Volume 8.1 FL (6.5-10.1) Neutrophils (%) (Auto) % (45.0-75.0) Lymphocytes (%) (Auto) % (20.0-45.0) Monocytes (%) (Auto) % (1.0-10.0) Eosinophils (%) (Auto) % (0.0-3.0) Basophils (%) (Auto) % (0.0-2.0) Differential Total Cells Counted 100 Neutrophils % (Manual) 89 % (45-75) H Lymphocytes % (Manual) 7 % (20-45) L Monocytes % (Manual) 4 % (1-10) Eosinophils % (Manual) 0 % (0-3) Basophils % (Manual) 0 % (0-2) Band Neutrophils 0 % (0-8) Platelet Estimate Adequate Platelet Morphology Normal Polychromasia 1+ Hypochromasia 1+ Anisocytosis 2+ Microcytosis 2+ Sodium Level 135 MMOL/L (136-145) L Potassium Level 4.6 MMOL/L (3.5-5.1) Chloride Level 99 MMOL/L (98-107) Carbon Dioxide Level 32 MMOL/L (21-32) Anion Gap 4 mmol/L (5-15) L Blood Urea Nitrogen 14 mg/dL (7-18) Creatinine 1.0 MG/DL (0.55-1.30) Estimat Glomerular Filtration Rate mL/min (>60) Glucose Level 142 MG/DL (74-106) H Calcium Level 9.3 MG/DL (8.5-10.1) FRITZ ARANDA M.D. Dec 08, 2017 21:18
--- NOTE | 2017-12-09 00:02 | General Progress Note ---
Assessment/Plan Assessment/Plan 1. Anemia of chronic disease. --> In the past, the patient noted to be severely iron deficient. --> Iron levels are low again. Begin the patient on IV iron. --> ++Occult blood. Consider GI services. --> anemia workup completed: Iron 9, TIBC 469, B12 132, Folate 14.8 --> Monitor for improvement. Transfuse if hgb <7 --> Hgb has been stable, no transfusiong needed. 2. Anemia due to iron deficiency. --> continue p.o. iron. --> Monitor closely for improvement in iron levels. 3. Leukopenia. Rule out human immunodeficiency virus and hepatitis. Both panels were negative. --> Resolved. --> Trend cbc daily. 4. Mild gastric thickening on prior CAT scan. Closely monitor. 5. Somewhat atrophic liver concerning for cirrhosis on prior CAT scan. 6. Obtain imaging of the liver. --> Abd ultrasound revealed bilateral renal cysts Subjective Date patient seen: Dec 08, 2017 Constitutional: Denies: no symptoms, chills, diaphoresis, fever, malaise, weakness, other HEENT: Denies: no symptoms, eye pain, blurred vision, tearing, double vision, ear pain, ear discharge, nose pain, nose congestion, throat pain, throat swelling, mouth pain, mouth swelling, other Cardiovascular: Denies: no symptoms, chest pain, edema, irregular heart rate, lightheadedness, palpitations, syncope, other Respiratory: Denies: no symptoms, cough, orthopnea, shortness of breath, SOB with excertion, SOB at rest, sputum, stridor, wheezing, other Gastrointestinal/Abdominal: Denies: no symptoms, abdomen distended, abdominal pain, black stools, tarry stools, blood in stool, constipated, diarrhea, difficulty swallowing, nausea, poor appetite, poor fluid intake, rectal bleeding , vomiting, other Genitourinary: Denies: no symptoms, burning, discharge, frequency, flank pain, hematuria, incontinence, pain, urgency, other Neurologic/Psychiatric: Denies: no symptoms, anxiety, depressed, emotional problems, headache, numbness, paresthesia, pre-existing deficit, seizure, tingling, tremors, weakness, other Hematologic/Lymphatic: Reports: anemia Allergies: Coded Allergies: No Known Allergies (Unverified , 06/20/14) Subjective Hematochezia detected. H/H stable. No fever. Objective Last 24 Hour Vital Signs Date Time Temp Pulse Resp B/P (MAP) Pulse Ox O2 Delivery O2 Flow Rate FiO2 12/08/17 16:00 97.9 96 19 128/91 99 97.9 12/08/17 15:48 90 16 99 Nasal Cannula 2.0 28 12/08/17 15:40 86 16 96 Nasal Cannula 2.0 28 12/08/17 12:01 Room Air 12/08/17 12:00 97.5 95 19 138/72 97 97.5 12/08/17 11:08 90 16 99 Room Air 21 12/08/17 10:58 85 18 97 Room Air 21 12/08/17 09:15 139/82 12/08/17 09:15 100 139/82 12/08/17 08:00 97.9 118 20 153/92 96 Nasal Cannula 2.0 97.9 12/08/17 07:35 100 18 99 Room Air 12/08/17 07:35 12/08/17 07:25 97 18 97 Room Air 12/08/17 07:25 97 Room Air 12/08/17 07:25 Nasal Cannula 2.0 12/08/17 04:00 97.1 98 20 139/82 96 Nasal Cannula 2.0 97.1 12/08/17 03:25 Nasal Cannula 12/08/17 03:24 Nasal Cannula 2.0 12/08/17 00:00 97.3 101 22 142/85 95 Nasal Cannula 2.0 97.3 Intake and Output 12/07/17 12/08/17 19:00 07:00 Intake Total 740 ml Balance 740 ml Intake Oral 200 ml IV Total 540 ml # Voids 4 # Bowel Movements 1 3 Laboratory Tests 12/08/17 05:55: White Blood Count 9.8, Red Blood Count 4.21L, Hemoglobin 8.4L, Hematocrit 28.9L , Mean Corpuscular Volume 69L, Mean Corpuscular Hemoglobin 20.0L, Mean Corpuscular Hemoglobin Concent 29.1L, Red Cell Distribution Width 23.4H, Platelet Count 234, Mean Platelet Volume 8.1, Neutrophils (%) (Auto) , Lymphocytes (%) (Auto) , Monocytes (%) (Auto) , Eosinophils (%) (Auto) , Basophils (%) (Auto) , Differential Total Cells Counted 100, Neutrophils % ( Manual) 89H, Lymphocytes % (Manual) 7L, Monocytes % (Manual) 4, Eosinophils % ( Manual) 0, Basophils % (Manual) 0, Band Neutrophils 0, Platelet Estimate Adequate, Platelet Morphology Normal, Polychromasia 1+, Hypochromasia 1+, Anisocytosis 2+, Microcytosis 2+, Sodium Level 135L, Potassium Level 4.6, Chloride Level 99, Carbon Dioxide Level 32, Anion Gap 4L, Blood Urea Nitrogen 14 , Creatinine 1.0, Estimat Glomerular Filtration Rate , Glucose Level 142H, Calcium Level 9.3 Height (Feet): 5 Height (Inches): 9.00 Weight (Pounds): 228 [place] Dec 09, 2017 00:02
--- NOTE | 2017-12-09 10:52 | Diagnostic Imaging Report ---
APPROVED REPORT CPT Code: 23821 Present Symptoms Shortness of breath BILATERAL: Imaging reveals a patent deep venous system bilaterally. There is no evidence of thrombus within the femoral, popliteal or tibial segments. The greater saphenous veins are also within normal limits. Doppler indicates normal spontaneous flow within these segments.
--- NOTE | 2017-12-11 13:22 | Discharge Summary ---
Discharge Summary Hospital Course Date of Admission Dec 03, 2017 at 22:14 Date of Discharge Dec 08, 2017 at 18:30 Admitting Diagnosis PNEUMONIA, SEPSIS HPI Nik Mcbride is a 77 year old male who was admitted on Dec 03, 2017 at 22:14 for Pneumonia/Sepsis Hospital Course dc summary #[id number] Discharge Medications Continued Medications: Amlodipine Besylate (Norvasc) 10 Mg Tablet 10 MG ORAL DAILY, TAB Aspirin* (Aspir 81*) 81 Mg Tablet.dr 81 MG ORAL DAILY, TAB Atorvastatin Calcium* (Atorvastatin Calcium*) 20 Mg Tablet 20 MG ORAL BEDTIME, TAB Beclomethasone Dipropionate 40MCG Oral Inh (Qvar 40*) 7.3 Gm Aer.w.adap 1 PUFF INH TWICE A DAY, GM 0 Refills Docusate Sodium* (Colace*) 100 Mg Capsule 100 MG ORAL THREE TIMES A DAY, CAP Insulin Aspart (Novolog Flexpen) 100 Unit/1 Ml Insuln.pen Lactulose (Lactulose) 10 Gm/15 Ml Solution 10 GM PO TID Losartan Potassium (Losartan Potassium) 100 Mg Tablet 100 MG ORAL DAILY, TAB Pantoprazole* (Protonix*) 40 Mg Tablet.dr 40 MG ORAL DAILY, TAB Discharge Condition Upon Discharge: stable Discharge Disposition Patient was discharged to Home () Discharge Diagnoses: Wilfredo (Hollis)Gloria NP Dec 11, 2017 13:22
--- NOTE | 2017-12-12 05:30 | Discharge Summary 2 SIG ---
DATE OF ADMISSION: 12/03/2017 DATE OF DISCHARGE: 12/08/2017 REASON FOR ADMISSION: 77 years old male with history of diabetes, hypertension, and CVA, presented to emergency room for evaluation due to shortness of breath. He reported being short of breath at home for two days. Pulse oximetry was low. The patient presented with wheezing. The patient received breathing treatment with bronchodilator by paramedics. The patient reported improved breathing. The patient normally was using home oxygen, but had difficulty breathing for the last two days. No fever. No chills. No cough. No chest pain. Workup in the emergency room revealed no fever, tachycardia- 105, and blood pressure -170/86. The patient required four liters of oxygen via nasal cannula. Laboratory workup revealed no leukocytosis, low hemoglobin-7.9 and hematocrit- 20.6. Electrolytes stable. Lactate over 5. Troponin negative. EKG revealed normal sinus rhythm with no acute ischemic changes. Chest x-ray revealed right lower lobe infiltrate. The patient was given fluid bolus 20 mL/kg and antibiotics. The patient was admitted for sepsis, pneumonia, and anemia. HOSPITAL COURSE: The patient admitted. ID, Pulmonology, Endocrinology, GI, and Hematology/Oncology consults were requested. Grain Handler closely followed. The patient was on supplemental oxygen titrated to keep pulse oximetry above 92%. Pulmonary toilet provided. Unable to obtain sputum culture since cough was nonproductive. The patient was started on the IV steroids which tapered slowly as permitted. Trial of theophylline started. Antitussive provided as needed. Influenza screen was negative. Blood cultures were negative. ID closely followed. HIV test was negative. The patient status post treatment with antibiotics for presumed pneumonia. ID recommended monitor the patient off antibiotics. The patient counseled on smoking cessation. GI closely followed the patient. Hemoglobin and hematocrit were closely monitored. Hepatitis panel revealed hepatitis C infection. Anemia workup revealed iron deficiency anemia and anemia of chronic disease. The patient received three units of packed red blood cells for hemoglobin of 6.3 and hematocrit 22.7 and after three units, hemoglobin - 8.6 and hematocrit- 28.5. The patient received IV iron. Diet was slowly advanced as tolerated. The patient was on PPI. Antiemetics were on the board as needed. Bowel regimen instituted. GI cleared for discharge with outpatient follow up for hepatitis C treatment, breath test for H pylori and capsule endoscopy. CT of the chest revealed two pulmonary nodules, 6 to 7 mm lung nodules in the right upper lobe and left lower lobe 5 mm nodules. No previous CT chest was available for comparison, however, CT of the abdomen performed on 06/16/2017, imaged the left lower lobe nodule and by comparing the left lower lobe nodule, it appeared larger on the current exam, therefore the findings were suspicious for neoplasm. The patient also notable for history of emphysema and noted area of hyperlucency within both upper and lower lung [place]. Nodules were too small to biopsy as per CT report. Automatic Pinsetter Mechanic/oncologist closely follow. The patient recommended to follow up as outpatient with the finishing machine tender/oncologist per insurance and repeat CT in three months and further close follow up. Blood pressure was managed with calcium channel nickie and angiotensin receptor nickie. Blood sugar was managed with pre-meal NovoLog and long-acting Levemir as well as sliding scale of insulin as needed. Stock Trader closely followed. The patient was stable for discharge home. FINAL DIAGNOSES: 1. Acute bronchitis, likely pneumonia. 2. Acute chronic obstructive pulmonary disease exacerbation. 3. Probably sepsis. 4. Hypertension. 5. Diabetes. 6. Smoker. 7. History of cerebrovascular accident. 8. Iron-deficiency anemia. 9. Acute anemia of blood loss, status post blood transfusion. 10. Hepatitis C infection. 11. Pulmonary nodules, possibly lung carcinoma. DISCHARGE MEDICATIONS: See medication reconciliation list. DISCHARGE INSTRUCTIONS: The patient discharged home. The patient to follow up with oncologist for further management of pulmonary nodules. Follow up with the CT in 3 months, check cancer tumor markers and probably proceed to get a surgical evaluation for possible nodules resection. Bry Santiago D.O. [facility] N.P[facility] DR: DIGNA JOB#: [id number] CC: DARRYL
== END 2017-12-08 18:30 | disposition home or self-care (01) | DRG 720 ==
LOC: EDBD 19:10 → EMR 19:35 → 2E 22:14 → EDBEDREQ 12-04 00:47 → 2E 12-04 18:46 → 4W 12-07 18:32
PROC: 30233N1 Transfusion of Nonautologous Red Blood Cells into Peripheral Vein, Percutaneous Approach (ICD-10-PCS; principal; 2017-12-04)
DX: A41.9 Sepsis, unspecified organism (principal); J18.9 Pneumonia, unspecified organism; E87.2 Acidosis; K92.2 Gastrointestinal hemorrhage, unspecified; J44.0 Chronic obstructive pulmonary disease with (acute) lower respiratory infection; E88.09 Other disorders of plasma-protein metabolism, not elsewhere classified; N39.0 Urinary tract infection, site not specified; C34.90 Malignant neoplasm of unspecified part of unspecified bronchus or lung; D62 Acute posthemorrhagic anemia; B96.81 Helicobacter pylori [H. pylori] as the cause of diseases classified elsewhere; J44.1 Chronic obstructive pulmonary disease with (acute) exacerbation; E11.9 Type 2 diabetes mellitus without complications; I10 Essential (primary) hypertension; E66.9 Obesity, unspecified; I25.10 Atherosclerotic heart disease of native coronary artery without angina pectoris; D64.9 Anemia, unspecified; D50.9 Iron deficiency anemia, unspecified; R91.1 Solitary pulmonary nodule; K29.70 Gastritis, unspecified, without bleeding; K59.00 Constipation, unspecified; B19.20 Unspecified viral hepatitis C without hepatic coma; Z68.33 Body mass index [BMI] 33.0-33.9, adult; Z79.4 Long term (current) use of insulin; Z86.73 Personal history of transient ischemic attack (TIA), and cerebral infarction without residual deficits
CPT/HCPCS: 36415; 36600; 71045; 71250; 76700; 80048; 80053; 81003; 82270; 82550; 82553; 82607; 82728; 82746; 82803; 82962; 83036; 83540; 83550; 83605; 83615; 83690; 83735; 83880; 83921; 84100; 84153; 84484; 85007; 85025; 85044; 85060; 85384; 85610; 85730; 86703; 86705; 86709; 86710; 86803; 86850; 86900; 86901; 86920; 87040; 87340; 87522; 93005; 93970; 94640; 94664; 94760; 97803; 99285; J1815; S5561

== ENCOUNTER 2018-02-17 14:21 | Inpatient (IN) | payer MEDICARE, MEDICAID ==
[~2018-02-17] VITALS: Ht 172.7 cm; Wt 97.5 kg
[~2018-02-17 14:21] MED LIST changes: +AMLODIPINE BES2.5 MG ORAL; +AMLODIPINE BESY10 MG ORAL; +ATORVASTATIN CA20 MG ORAL; +COLACE100 MG ORAL; +DOXAZOSIN MESYLA1 MG ORAL; +FUROSEMIDE20 M1 ORAL; +HYDROCHLOROTH12.5 M2 ORAL; +LACTULOSE10 GM/153 PO; +LOSARTAN POTASS50 MG ORAL; +METFORMIN HCL500 M1 ORAL; +NOVOLOG100 UNITS1; +QVAR7.3 GM INH; +ZANTAC150 MG ORAL
[2018-02-17 15:21] VITALS: BP 129/75
[2018-02-17 15:46] LABS: BASOPHILS % (AUTO) 1.3 % (0.0-2.0); EOSINOPHILS % (AUTO) 3.5 % (0.0-3.0); HEMATOCRIT 32.5 % (42.0-52.0); MEAN CORPUSCULAR VOLUME 65 FL (80-99); MONOCYTES % (AUTO) 11.8 % (1.0-10.0); NEUTROPHILS % (AUTO) 57.5 % (45.0-75.0); PLATELET COUNT 209 K/UL (150-450); RED BLOOD COUNT 5.02 M/UL (4.70-6.10); RED CELL DISTRIBUTION WIDTH 18.6 % (11.6-14.8); WHITE BLOOD COUNT 4.3 K/UL (4.8-10.8)
[2018-02-17 15:59] LABS: INR 1.1 (0.9-1.1)
[2018-02-17 16:03] LABS: ANION GAP 8 mmol/L (5-15); BLOOD UREA NITROGEN 16 mg/dL (7-18); CALCIUM 9.2 MG/DL (8.5-10.1); CARBON DIOXIDE 31 MMOL/L (21-32); CHLORIDE 98 MMOL/L (98-107); CREATININE 1.2 MG/DL (0.55-1.30); POTASSIUM 3.2 MMOL/L (3.5-5.1); SODIUM 137 MMOL/L (136-145)
[2018-02-17 16:07] LABS: ALANINE AMINOTRANSFERASE 46 U/L (12-78); ALBUMIN 3.7 G/DL (3.4-5.0); ALBUMIN/GLOBULIN RATIO 0.9 (1.0-2.7); ALKALINE PHOSPHATASE 61 U/L (46-116); ASPARTATE AMINO TRANSFERASE 36 U/L (15-37); BILIRUBIN,TOTAL 0.8 MG/DL (0.2-1.0)
--- NOTE | 2018-02-17 16:14 | Emergency Room Report ---
History of Present Illness General Chief Complaint: Abnormal Labs Source: Patient, Medical Record Present Illness HPI This patient presents at the instruction of his primary care physician Dr. Bry Santiago. He has a history of anemia and was undergoing routine labs by his primary care physician. He had submitted stool samples, urine samples and did blood work. He was called by Bry Mensah today and instructed to report to the emergency department because he had blood in his stool. The patient has no pain. He states that he has had blood in his stool for some time. He denies fever or chills. He denies nausea or vomiting. He has no other complaints. Allergies: Coded Allergies: No Known Allergies (Unverified , 06/20/14) Patient History Past Medical History: see triage record, DM, HTN, VA, CAD, CVA/TIA, other - anemia Social History: Denies: smoking, alcohol use, drug use Reviewed Nursing Documentation: PMH: Agreed; PSxH: Agreed Nursing Documentation-PMH Past Medical History: No History, Except For Hx Cardiac Problems: Yes Hx Hypertension: Yes Hx Diabetes: Yes Hx Cancer: No Hx Neurological Problems: Yes Hx Cerebrovascular Accident: Yes Review of Systems All Other Systems: negative except mentioned in HPI Physical Exam Vital Signs Date Time Temp Pulse Resp B/P (MAP) Pulse Ox O2 Delivery O2 Flow Rate FiO2 02/17/18 14:28 98.3 93 18 124/77 91 Room Air 98.2 Sp02 EP Interpretation: reviewed, normal General Appearance: no apparent distress, alert, GCS 15, non-toxic Head: normocephalic, atraumatic Eyes: bilateral eye normal inspection, bilateral eye PERRL ENT: hearing grossly normal, normal pharynx, no angioedema, normal voice Neck: full range of motion, supple/symm/no masses Respiratory: chest non-tender, lungs clear, normal breath sounds, speaking full sentences Cardiovascular #1: regular rate, rhythm, no edema Gastrointestinal: normal bowel sounds, non tender, soft, non-distended, no guarding, no rebound Rectal: deferred Musculoskeletal: back normal, gait/station normal, normal range of motion, non- tender Neurologic: alert, oriented x3, responsive, motor strength/tone normal, sensory intact, speech normal Psychiatric: judgement/insight normal, memory normal, mood/affect normal, no suicidal/homicidal ideation Skin: normal color, no rash, warm/dry, well hydrated Medical Decision Making Diagnostic Impression: Primary Impression: Anemia Additional Impression: GI bleed ER Course This patient has a know chronic microcytic anemia and presents for concern of GI bleed at the request of his PCP. The patient is found to have microcytic anemia. DD: GI bleed, iron deficiency. Patient is nontoxic overall. He is well-appearing without pain. He is admitted for further evaluation and treatment to assess for possible GI bleed. Laboratory Tests Test 02/17/18 15:11 02/17/18 15:51 White Blood Count 4.3 K/UL (4.8-10.8) L Red Blood Count 5.02 M/UL (4.70-6.10) Hemoglobin 9.0 G/DL (14.2-18.0) L Hematocrit 32.5 % (42.0-52.0) L Mean Corpuscular Volume 65 FL (80-99) L Mean Corpuscular Hemoglobin 18.0 PG (27.0-31.0) L Mean Corpuscular Hemoglobin Concent 27.8 G/DL (32.0-36.0) L Red Cell Distribution Width 18.6 % (11.6-14.8) H Platelet Count 209 K/UL (150-450) Mean Platelet Volume 5.8 FL (6.5-10.1) L Neutrophils (%) (Auto) 57.5 % (45.0-75.0) Lymphocytes (%) (Auto) 26.0 % (20.0-45.0) Monocytes (%) (Auto) 11.8 % (1.0-10.0) H Eosinophils (%) (Auto) 3.5 % (0.0-3.0) H Basophils (%) (Auto) 1.3 % (0.0-2.0) Prothrombin Time 10.9 SEC (9.30-11.50) Prothrombin Time INR 1.1 (0.9-1.1) PTT 26 SEC (23-33) Sodium Level 137 MMOL/L (136-145) Potassium Level 3.2 MMOL/L (3.5-5.1) L Chloride Level 98 MMOL/L (98-107) Carbon Dioxide Level 31 MMOL/L (21-32) Anion Gap 8 mmol/L (5-15) Blood Urea Nitrogen 16 mg/dL (7-18) Creatinine 1.2 MG/DL (0.55-1.30) Estimate Glomerular Filtration Rate mL/min (>60) Glucose Level 80 MG/DL (74-106) Calcium Level 9.2 MG/DL (8.5-10.1) Total Bilirubin 0.8 MG/DL (0.2-1.0) Aspartate Amino Transferase (AST) 36 U/L (15-37) Alanine Aminotransferase (ALT) 46 U/L (12-78) Alkaline Phosphatase 61 U/L (46-116) Total Protein 7.9 G/DL (6.4-8.2) Albumin 3.7 G/DL (3.4-5.0) Globulin 4.2 g/dL Albumin/Globulin Ratio 0.9 (1.0-2.7) L Urine Color Pale yellow Urine Appearance Clear Urine pH 7 (4.5-8.0) Urine Specific [place] 1.005 (1.005-1.035) Urine Protein Negative (NEGATIVE) Urine Glucose (UA) Negative (NEGATIVE) Urine Ketones Negative (NEGATIVE) Urine Occult Blood Negative (NEGATIVE) Urine Nitrite Negative (NEGATIVE) Urine Bilirubin Negative (NEGATIVE) Urine Urobilinogen 4 MG/DL (0.0-1.0) H Urine Leukocyte Esterase 2+ (NEGATIVE) H Urine RBC 0-2 /HPF (0 - 0) H Urine WBC 2-4 /HPF (0 - 0) Urine Squamous Epithelial Cells None /LPF (NONE/OCC) Urine Bacteria Few /HPF (NONE) Last Vital Signs Date Time Temp Pulse Resp B/P (MAP) Pulse Ox O2 Delivery O2 Flow Rate FiO2 02/17/18 15:21 87 18 129/75 93 Room Air 02/17/18 14:28 98.3 98.2 Disposition: ADMITTED INPATIENT Condition: Serious Referrals: NOT CHOSEN IPA/,REFERRING (PCP) FERNY MCKEON D.O. February 17, 2018 16:14
[2018-02-17 16:16] LABS: APPEARANCE,URINE CLEAR; BILIRUBIN, URINE NEGATIVE (NEGATIVE); COLOR,URINE PALE YELLOW; GLUCOSE, URINE (UA) NEGATIVE (NEGATIVE); KETONES,URINE NEGATIVE (NEGATIVE); LEUKOCYTE ESTERASE ,URINE 2+ (NEGATIVE); NITRITE,URINE NEGATIVE (NEGATIVE); PH,URINE 7 (4.5-8.0); PROTEIN,URINE NEGATIVE (NEGATIVE); UROBILINOGEN,URINE 4 MG/DL (0.0-1.0)
[2018-02-17] MEDS ORDERED: FERROUS SULFAT325 MG ORAL (17:15)
[2018-02-17] MEDS ORDERED: PROVENTIL HFA6.7 G1 IH (17:15)
[2018-02-17 17:27] VITALS: BP 114/65
[2018-02-17] MEDS ORDERED: Mylanta II UD 30ml ORAL PRN (18:45)
[2018-02-17] MEDS ORDERED: Nitroglycerin Subl 0.4mg tab SL PRN (18:45)
[2018-02-17 20:10] VITALS: BP 114/56
[2018-02-17] MEDS: NovoLOG Insulin Flexpen SUBQ SCH (21:00)
[2018-02-17] MEDS ORDERED: Miralax 17gm pkt ORAL PRN (21:00)
[2018-02-17] MEDS: D5 1/2NS 1,000 ML IV SCH (22:35)
[2018-02-18] VITALS: BP 121/71
[2018-02-18 04:00] VITALS: BP 123/80
[2018-02-18] MEDS: NovoLOG Insulin Flexpen SUBQ SCH ×4 (05:41→21:21)
[2018-02-18 08:00] VITALS: BP 145/68
[2018-02-18 08:46] LABS: BASOPHILS % (AUTO) 1.6 % (0.0-2.0); EOSINOPHILS % (AUTO) 5.2 % (0.0-3.0); HEMATOCRIT 32.9 % (42.0-52.0); HEMOGLOBIN 9.3 G/DL (14.2-18.0); LYMPHOCYTES % (AUTO) 22.1 % (20.0-45.0); MEAN CORPUSCULAR VOLUME 65 FL (80-99); MONOCYTES % (AUTO) 11.5 % (1.0-10.0); NEUTROPHILS % (AUTO) 59.7 % (45.0-75.0); PLATELET COUNT 205 K/UL (150-450); RED BLOOD COUNT 5.09 M/UL (4.70-6.10); RED CELL DISTRIBUTION WIDTH 18.7 % (11.6-14.8); WHITE BLOOD COUNT 4.4 K/UL (4.8-10.8)
[2018-02-18] MEDS: Losartan 50mg tab ORAL SCH (08:58)
[2018-02-18 09:01] LABS: INR 1.1 (0.9-1.1)
[2018-02-18 09:09] LABS: ALANINE AMINOTRANSFERASE 51 U/L (12-78); ALBUMIN 3.8 G/DL (3.4-5.0); ALBUMIN/GLOBULIN RATIO 0.9 (1.0-2.7); ALKALINE PHOSPHATASE 63 U/L (46-116); AMYLASE 134 U/L (25-115); ANION GAP 9 mmol/L (5-15); ASPARTATE AMINO TRANSFERASE 38 U/L (15-37); BILIRUBIN,TOTAL 0.9 MG/DL (0.2-1.0); BLOOD UREA NITROGEN 12 mg/dL (7-18); CALCIUM 9.5 MG/DL (8.5-10.1); CARBON DIOXIDE 31 MMOL/L (21-32); CHLORIDE 99 MMOL/L (98-107); CREATININE 1.1 MG/DL (0.55-1.30); POTASSIUM 3.4 MMOL/L (3.5-5.1); SODIUM 138 MMOL/L (136-145)
[2018-02-18] MEDS: D5 1/2NS 1,000 ML IV SCH ×2 (10:34→23:10)
--- NOTE | 2018-02-18 11:21 | GI Initial Consult Note ---
History of Present Illness General Date patient seen: February 18, 2018 Time patient seen: 13:04 Reason for Hospitalization: Abnormal Labs Present Illness HPI This patient presents at the instruction of his primary care physician Dr. Bry Santiago. He has a history of anemia and was undergoing routine labs by his primary care physician. He had submitted stool samples, urine samples and did blood work. He was called by Bry Mensah today and instructed to report to the emergency department because he had blood in his stool. The patient has no pain. He states that he has had blood in his stool for some time. He denies fever or chills. He denies nausea or vomiting. He has no other complaints. GI consulted for symptomatic anemia r/o GI bleed. HPI as noted above. Pt seen, awake A&Ox4 NAD with no active s/sx of N/V/D. Known patient to us, hx of iron deficiency anemia whom presents to the hospital every few months for low Hgb and blood transfusion. During his patient admission, the patient was scheduled for outpatient capsule endoscopy to evaluate his anemia but the procedure was never performed. Had recent EGD/colonoscopy performed on 06/2017 with unremarkable results. Home Meds Reported Medications Ferrous Sulfate* (FERROUS SULFATE*) 325 Mg Tablet, 325 MG ORAL TWICE A DAY, #60 TAB 0 Refills 02/17/18 Pantoprazole* (PROTONIX*) 40 Mg Tablet.dr, 40 MG ORAL DAILY, TAB 12/08/17 Atorvastatin Calcium* (ATORVASTATIN CALCIUM*) 20 Mg Tablet, 20 MG ORAL BEDTIME, TAB 12/08/17 Hum Insulin Nph/Reg Insulin Hm (HUMULIN 70-30 VIAL) 100 Unit/1 Ml Vial, 20 UNITS SUBQ QHS, VIAL 09/21/17 Albuterol Sulfate (PROVENTIL HFA) 6.7 Gm Hfa.aer.ad, 6.7 GM IH PRN for Shortness of Breath 09/21/17 Metformin Hcl* (METFORMIN HCL*) 1,000 Mg Tablet, 1000 MG ORAL BID, TAB 09/21/17 Amlodipine Besylate (Norvasc) 10 Mg Tablet, 10 MG ORAL DAILY, TAB 06/13/17 Losartan Potassium (LOSARTAN POTASSIUM) 100 Mg Tablet, 100 MG ORAL DAILY, TAB 06/13/17 Hydrochlorothiazide* (HYDROCHLOROTHIAZIDE*) 25 Mg Tablet, 25 MG ORAL DAILY, TAB 06/13/17 Aspirin* (ASPIR 81*) 81 Mg Tablet.dr, 81 MG ORAL DAILY, TAB 06/20/14 Hum Insulin Nph/Reg Insulin Hm (HUMULIN 70-30 VIAL) 100 Unit/1 Ml Vial, 30 UNITS SUBQ ACBREAKFAST, VIAL 06/20/14 Simvastatin (ZOCOR) 40 Mg Tablet, 40 MG ORAL BEDTIME, TAB 06/20/14 Discontinued Reported Medications Lactulose (LACTULOSE) 10 Gm/15 Ml Solution, 10 GM PO TID 12/08/17 Docusate Sodium* (COLACE*) 100 Mg Capsule, 100 MG ORAL THREE TIMES A DAY, CAP 12/08/17 Losartan Potassium* (LOSARTAN POTASSIUM*) 50 Mg Tablet, 100 MG ORAL DAILY, TAB 12/08/17 Beclomethasone Dipropionate 40MCG Oral Inh (QVAR 40*) 7.3 Gm Aer.w.adap, 1 PUFF INH TWICE A DAY, GM 0 Refills 12/08/17 Insulin Aspart (Novolog Flexpen) 100 Unit/1 Ml Insuln.pen 12/08/17 Amlodipine Besylate* (AMLODIPINE BESYLATE*) 2.5 Mg Tablet, ORAL DAILY, TAB 12/03/17 Hydrochlorothiazide* (HYDROCHLOROTHIAZIDE*) 12.5 Mg Capsule, ORAL DAILY, CAP 12/03/17 Doxazosin Mesylate* (DOXAZOSIN MESYLATE*) 1 Mg Tablet, ORAL DAILY, TAB 12/03/17 Ranitidine Hcl* (ZANTAC*) 150 Mg Tablet, ORAL DAILY, #30 TAB 0 Refills 12/03/17 Furosemide* (LASIX*) 20 Mg Tablet, ORAL DAILY, TAB 12/03/17 Metformin Hcl* (METFORMIN HCL*) 500 Mg Tablet, ORAL TWICE A DAY, TAB 12/03/17 Cetirizine Hcl* (ZYRTEC*) 10 Mg Tablet, 10 MG ORAL DAILY, #30 TAB 0 Refills 09/21/17 Furosemide* (LASIX*) 40 Mg Tablet, 40 MG ORAL DAILY, TAB 09/21/17 Doxazosin Mesylate (DOXAZOSIN MESYLATE) 2 Mg Tablet, 4 MG ORAL QHS, TAB 06/13/17 Med list reviewed/reconciled: Yes Allergies: Coded Allergies: No Known Allergies (Unverified , 06/20/14) Patient History History Provided By: Patient, Medical Record PMH Narrative Past Medical History: see triage record, DM, HTN, [place], CAD, CVA/TIA, other - anemia Social History: Denies: smoking, alcohol use, drug use Reviewed Nursing Documentation: PMH: Agreed; PSxH: Agreed Nursing Documentation-PMH Past Medical History: No History, Except For Hx Cardiac Problems: Yes Hx Hypertension: Yes Hx Diabetes: Yes Hx Cancer: No Hx Neurological Problems: Yes Hx Cerebrovascular Accident: Yes Social History: Denies: smoking, alcohol use, drug use, other Review of Systems All Other Systems: negative except mentioned in HPI Physical Exam Vital Signs Date Time Temp Pulse Resp B/P (MAP) Pulse Ox O2 Delivery O2 Flow Rate FiO2 02/17/18 14:28 98.3 93 18 124/77 91 Room Air 98.2 Sp02 EP Interpretation: reviewed, normal Labs Laboratory Tests Test 02/17/18 15:11 02/17/18 15:51 02/18/18 07:06 White Blood Count 4.3 K/UL (4.8-10.8) L 4.4 K/UL (4.8-10.8) L Red Blood Count 5.02 M/UL (4.70-6.10) 5.09 M/UL (4.70-6.10) Hemoglobin 9.0 G/DL (14.2-18.0) L 9.3 G/DL (14.2-18.0) L Hematocrit 32.5 % (42.0-52.0) L 32.9 % (42.0-52.0) L Mean Corpuscular Volume 65 FL (80-99) L 65 FL (80-99) L Mean Corpuscular Hemoglobin 18.0 PG (27.0-31.0) L 18.3 PG (27.0-31.0) L Mean Corpuscular Hemoglobin Concent 27.8 G/DL (32.0-36.0) L 28.3 G/DL (32.0-36.0) L Red Cell Distribution Width 18.6 % (11.6-14.8) H 18.7 % (11.6-14.8) H Platelet Count 209 K/UL (150-450) 205 K/UL (150-450) Mean Platelet Volume 5.8 FL (6.5-10.1) L 7.1 FL (6.5-10.1) Neutrophils (%) (Auto) 57.5 % (45.0-75.0) 59.7 % (45.0-75.0) Lymphocytes (%) (Auto) 26.0 % (20.0-45.0) 22.1 % (20.0-45.0) Monocytes (%) (Auto) 11.8 % (1.0-10.0) H 11.5 % (1.0-10.0) H Eosinophils (%) (Auto) 3.5 % (0.0-3.0) H 5.2 % (0.0-3.0) H Basophils (%) (Auto) 1.3 % (0.0-2.0) 1.6 % (0.0-2.0) Prothrombin Time 10.9 SEC (9.30-11.50) 10.8 SEC (9.30-11.50) Prothromb Time International Ratio 1.1 (0.9-1.1) 1.1 (0.9-1.1) Activated Partial Thromboplast Time 26 SEC (23-33) 27 SEC (23-33) Sodium Level 137 MMOL/L (136-145) 138 MMOL/L (136-145) Potassium Level 3.2 MMOL/L (3.5-5.1) L 3.4 MMOL/L (3.5-5.1) L Chloride Level 98 MMOL/L (98-107) 99 MMOL/L (98-107) Carbon Dioxide Level 31 MMOL/L (21-32) 31 MMOL/L (21-32) Anion Gap 8 mmol/L (5-15) 9 mmol/L (5-15) Blood Urea Nitrogen 16 mg/dL (7-18) 12 mg/dL (7-18) Creatinine 1.2 MG/DL (0.55-1.30) 1.1 MG/DL (0.55-1.30) Estimat Glomerular Filtration Rate mL/min (>60) mL/min (>60) Glucose Level 80 MG/DL (74-106) 96 MG/DL (74-106) Calcium Level 9.2 MG/DL (8.5-10.1) 9.5 MG/DL (8.5-10.1) Total Bilirubin 0.8 MG/DL (0.2-1.0) 0.9 MG/DL (0.2-1.0) Aspartate Amino Transf (AST/SGOT) 36 U/L (15-37) 38 U/L (15-37) H Alanine Aminotransferase (ALT/SGPT) 46 U/L (12-78) 51 U/L (12-78) Alkaline Phosphatase 61 U/L (46-116) 63 U/L (46-116) Total Protein 7.9 G/DL (6.4-8.2) 8.2 G/DL (6.4-8.2) Albumin 3.7 G/DL (3.4-5.0) 3.8 G/DL (3.4-5.0) Globulin 4.2 g/dL 4.4 g/dL Albumin/Globulin Ratio 0.9 (1.0-2.7) L 0.9 (1.0-2.7) L Urine Color Pale yellow Urine Appearance Clear Urine pH 7 (4.5-8.0) Urine Specific [place] 1.005 (1.005-1.035) Urine Protein Negative (NEGATIVE) Urine Glucose (UA) Negative (NEGATIVE) Urine Ketones Negative (NEGATIVE) Urine Occult Blood Negative (NEGATIVE) Urine Nitrite Negative (NEGATIVE) Urine Bilirubin Negative (NEGATIVE) Urine Urobilinogen 4 MG/DL (0.0-1.0) H Urine Leukocyte Esterase 2+ (NEGATIVE) H Urine RBC 0-2 /HPF (0 - 0) H Urine WBC 2-4 /HPF (0 - 0) Urine Squamous Epithelial Cells None /LPF (NONE/OCC) Urine Bacteria Few /HPF (NONE) Amylase Level 134 U/L (25-115) H Lipase 162 U/L (73-393) General Appearance: well appearing, no apparent distress, alert Head: normocephalic EENT: PERRL/EOMI, normal ENT inspection Neck: supple Respiratory: normal breath sounds, no respiratory distress Cardiovascular: normal rate Gastrointestinal: normal inspection, non tender, soft, normal bowel sounds, non -distended Rectal: deferred Genitourinary: deferred Musculoskeletal: normal inspection, back normal Neurologic: normal inspection, alert, oriented x3, responsive Psychiatric: normal inspection, judgement/insight normal, memory normal Skin: normal inspection, normal color, no rash, warm/dry, palpation normal, well hydrated Lymphatic: normal inspection, no adenopathy Current Medications Current Medications Medications (Trade) Dose Ordered Sig/Eda Route PRN Reason Start Time Stop Time Status Last Admin Dose Admin Acetaminophen (Tylenol) 650 mg Q4H PRN ORAL T>100.5 02/17/18 18:45 03/19/18 18:44 Al Hydroxide/Mg Hydroxide (Mylanta II) 30 ml Q6H PRN ORAL dyspepsia 02/17/18 18:45 03/19/18 18:44 Amlodipine Besylate (Norvasc) 10 mg DAILY ORAL 02/18/18 09:00 03/20/18 08:59 02/18/18 08:59 Dextrose (Dextrose 50%) 25 ml ONCE PRN IV Hypoglycemia 02/17/18 18:45 03/19/18 18:44 Dextrose (Dextrose 50%) 50 ml ONCE PRN IV hypoglycemia 02/17/18 18:45 03/19/18 18:44 Dextrose/Sodium Chloride 1,000 ml @ 75 mls/hr [id number] IV 02/17/18 20:30 03/19/18 20:29 02/18/18 10:34 Diphenhydramine HCl (Benadryl) 25 mg Q6H PRN ORAL Itching/Pruritis 02/17/18 18:45 03/19/18 18:44 Insulin Aspart (NovoLOG) BEFORE MEALS AND HS SUBQ 02/17/18 21:00 03/19/18 20:59 Losartan Potassium (Cozaar) 100 mg DAILY ORAL 02/18/18 09:00 03/20/18 08:59 02/18/18 08:58 Nitroglycerin (Ntg) 0.4 mg Q5MIN X 3 DOSES PRN SL Prn Chest Pain 02/17/18 18:45 03/19/18 18:44 Ondansetron HCl (Zofran) 4 mg Q6H PRN IVP Nausea & Vomiting 02/17/18 18:45 03/19/18 18:44 Pantoprazole (Protonix) 40 mg DAILY ORAL 02/18/18 09:00 03/20/18 08:59 02/18/18 08:58 Polyethylene Glycol (Miralax) 17 gm HSPRN PRN ORAL Constipation 02/17/18 21:00 03/19/18 20:59 Temazepam (Restoril) 15 mg HSPRN PRN ORAL Insomnia 02/17/18 21:00 02/24/18 20:59 GI: Plan Problems: (1) Encounter for diagnostic endoscopy (2) GI bleed (3) Anemia (4) Hepatitis C (5) Iron deficiency Plan SB capsule endoscopy scheduled for tomorrow. - maintain CLD + IVFs today, NPO @ NM. anemia work up OB stool r/o GI bleed monitor H&H, prn transfusions bowel regime ppi fu labs Discussed with Dr. Watts. Thank you for this patient referral, we will follow. The patient was seen and examined at bedside and all new and available data was reviewed in the patients chart. I agree with the above findings, impression and plan. (Patient seen earlier today. Signature stamp does not reflect patient encounter time.). - MD María [facility]iasLa [facility] SPECIAL[facility] February 18, 2018 11:21
[2018-02-18 12:00] VITALS: BP 140/90
--- NOTE | 2018-02-18 12:05 | Consultation ---
History of Present Illness General Date patient seen: February 18, 2018 Chief Complaint: Abnormal Labs Present Illness HPI 77 year old male with hx of COPD, HTN, DM, CVA presented to ER at the instruction of his primary care physician for evaluation of anemia. He was instructed to report to the emergency department because he had blood in his stool. The patient has no pain. He states that he has had blood in his stool for some time. He denies fever or chills. He denies nausea or vomiting. He has no other complaints. He is admitted to telemetry for evaluation of anemia and GI bleeding. Allergies: Coded Allergies: No Known Allergies (Unverified , 06/20/14) Medication History Scheduled Amlodipine Besylate (Norvasc), 10 MG ORAL DAILY, (Reported) Aspirin* (Aspir 81*), 81 MG ORAL DAILY, (Reported) Atorvastatin Calcium* (Atorvastatin Calcium*), 20 MG ORAL BEDTIME, (Reported) Ferrous Sulfate* (Ferrous Sulfate*), 325 MG ORAL TWICE A DAY, (Reported) Hum Insulin Nph/Reg Insulin Hm (Humulin 70-30 Vial), 30 UNITS SUBQ ACBREAKFAST, (Reported) Hum Insulin Nph/Reg Insulin Hm (Humulin 70-30 Vial), 20 UNITS SUBQ QHS, ( Reported) Hydrochlorothiazide* (Hydrochlorothiazide*), 25 MG ORAL DAILY, (Reported) Losartan Potassium (Losartan Potassium), 100 MG ORAL DAILY, (Reported) Metformin Hcl* (Metformin Hcl*), 1,000 MG ORAL BID, (Reported) Pantoprazole* (Protonix*), 40 MG ORAL DAILY, (Reported) Simvastatin (Zocor), 40 MG ORAL BEDTIME, (Reported) Scheduled PRN Albuterol Sulfate (Proventil Hfa), 6.7 GM IH for Shortness of Breath, (Reported) Discontinued Medications Amlodipine Besylate* (Amlodipine Besylate*), Unknown Dose ORAL DAILY, (Reported) Discontinued Reason: Medication dose changed Beclomethasone Dipropionate 40MCG Oral Inh (Qvar 40*), 1 PUFF INH TWICE A DAY, ( Reported) Discontinued Reason: Pt stopped taking med Cetirizine Hcl* (Zyrtec*), 10 MG ORAL DAILY, (Reported) Discontinued Reason: Pt stopped taking med Docusate Sodium* (Colace*), 100 MG ORAL THREE TIMES A DAY, (Reported) Discontinued Reason: Pt stopped taking med Doxazosin Mesylate (Doxazosin Mesylate), 4 MG ORAL QHS, (Reported) Discontinued Reason: Pt stopped taking med Doxazosin Mesylate* (Doxazosin Mesylate*), Unknown Dose ORAL DAILY, (Reported) Discontinued Reason: Pt stopped taking med Furosemide* (Lasix*), 40 MG ORAL DAILY, (Reported) Discontinued Reason: Pt stopped taking med Furosemide* (Lasix*), Unknown Dose ORAL DAILY, (Reported) Discontinued Reason: Pt stopped taking med Hydrochlorothiazide* (Hydrochlorothiazide*), Unknown Dose ORAL DAILY, (Reported) Discontinued Reason: Medication dose changed Insulin Aspart (Novolog Flexpen), (Reported) Discontinued Reason: Pt stopped taking med Lactulose (Lactulose), 10 GM PO TID, (Reported) Discontinued Reason: Pt stopped taking med Losartan Potassium* (Losartan Potassium*), 100 MG ORAL DAILY, (Reported) Discontinued Reason: Medication dose changed Metformin Hcl* (Metformin Hcl*), Unknown Dose ORAL TWICE A DAY, (Reported) Discontinued Reason: Medication dose changed Ranitidine Hcl* (Zantac*), Unknown Dose ORAL DAILY, (Reported) Discontinued Reason: Pt stopped taking med Patient History Healthcare decision maker Resuscitation status Full Code Advanced Directive on File No Past Medical/Surgical History Past Medical/Surgical History: (1) COPD (chronic obstructive pulmonary disease) (2) Anemia (3) Hepatitis C Review of Systems Respiratory: Reports: shortness of breath All Other Systems: negative except mentioned in HPI Physical Exam General Appearance: WD/WN Lines, tubes and drains: peripheral HEENT: normocephalic Neck: non-tender, normal alignment Respiratory/Chest: chest wall non-tender, decreased breath sounds Cardiovascular/Chest: normal peripheral pulses, normal rate, regular rhythm Abdomen: normal bowel sounds, non tender Genitourinary/Rectal: normal genital exam Last 24 Hour Vital Signs Date Time Temp Pulse Resp B/P (MAP) Pulse Ox O2 Delivery O2 Flow Rate FiO2 02/18/18 08:59 89 145/68 02/18/18 08:58 145/68 02/18/18 08:00 97.7 89 21 145/68 94 Room Air 97.7 02/18/18 07:40 95 02/18/18 05:48 97 02/18/18 04:00 97.6 90 18 123/80 94 Room Air 97.6 02/18/18 00:00 97.6 93 19 121/71 93 Room Air 97.6 02/18/18 00:00 87 02/17/18 20:10 98.3 88 14 114/56 94 Room Air 98.2 02/17/18 20:10 88 14 114/56 94 Room Air 02/17/18 17:27 98 17 114/65 93 Room Air 02/17/18 15:21 87 18 129/75 93 Room Air 02/17/18 14:28 98.3 93 18 124/77 91 Room Air 98.2 Intake and Output 02/17/18 02/18/18 19:00 07:00 Intake Total 0 ml 375 ml Output Total 500 ml Balance 0 ml -125 ml Intake Oral 0 ml IV Total 375 ml Output Urine Total 500 ml Laboratory Tests Test 02/17/18 15:11 02/17/18 15:51 02/18/18 07:06 White Blood Count 4.3 K/UL (4.8-10.8) L 4.4 K/UL (4.8-10.8) L Red Blood Count 5.02 M/UL (4.70-6.10) 5.09 M/UL (4.70-6.10) Hemoglobin 9.0 G/DL (14.2-18.0) L 9.3 G/DL (14.2-18.0) L Hematocrit 32.5 % (42.0-52.0) L 32.9 % (42.0-52.0) L Mean Corpuscular Volume 65 FL (80-99) L 65 FL (80-99) L Mean Corpuscular Hemoglobin 18.0 PG (27.0-31.0) L 18.3 PG (27.0-31.0) L Mean Corpuscular Hemoglobin Concent 27.8 G/DL (32.0-36.0) L 28.3 G/DL (32.0-36.0) L Red Cell Distribution Width 18.6 % (11.6-14.8) H 18.7 % (11.6-14.8) H Platelet Count 209 K/UL (150-450) 205 K/UL (150-450) Mean Platelet Volume 5.8 FL (6.5-10.1) L 7.1 FL (6.5-10.1) Neutrophils (%) (Auto) 57.5 % (45.0-75.0) 59.7 % (45.0-75.0) Lymphocytes (%) (Auto) 26.0 % (20.0-45.0) 22.1 % (20.0-45.0) Monocytes (%) (Auto) 11.8 % (1.0-10.0) H 11.5 % (1.0-10.0) H Eosinophils (%) (Auto) 3.5 % (0.0-3.0) H 5.2 % (0.0-3.0) H Basophils (%) (Auto) 1.3 % (0.0-2.0) 1.6 % (0.0-2.0) Prothrombin Time 10.9 SEC (9.30-11.50) 10.8 SEC (9.30-11.50) Prothromb Time International Ratio 1.1 (0.9-1.1) 1.1 (0.9-1.1) Activated Partial Thromboplast Time 26 SEC (23-33) 27 SEC (23-33) Sodium Level 137 MMOL/L (136-145) 138 MMOL/L (136-145) Potassium Level 3.2 MMOL/L (3.5-5.1) L 3.4 MMOL/L (3.5-5.1) L Chloride Level 98 MMOL/L (98-107) 99 MMOL/L (98-107) Carbon Dioxide Level 31 MMOL/L (21-32) 31 MMOL/L (21-32) Anion Gap 8 mmol/L (5-15) 9 mmol/L (5-15) Blood Urea Nitrogen 16 mg/dL (7-18) 12 mg/dL (7-18) Creatinine 1.2 MG/DL (0.55-1.30) 1.1 MG/DL (0.55-1.30) Estimat Glomerular Filtration Rate mL/min (>60) mL/min (>60) Glucose Level 80 MG/DL (74-106) 96 MG/DL (74-106) Calcium Level 9.2 MG/DL (8.5-10.1) 9.5 MG/DL (8.5-10.1) Total Bilirubin 0.8 MG/DL (0.2-1.0) 0.9 MG/DL (0.2-1.0) Aspartate Amino Transf (AST/SGOT) 36 U/L (15-37) 38 U/L (15-37) H Alanine Aminotransferase (ALT/SGPT) 46 U/L (12-78) 51 U/L (12-78) Alkaline Phosphatase 61 U/L (46-116) 63 U/L (46-116) Total Protein 7.9 G/DL (6.4-8.2) 8.2 G/DL (6.4-8.2) Albumin 3.7 G/DL (3.4-5.0) 3.8 G/DL (3.4-5.0) Globulin 4.2 g/dL 4.4 g/dL Albumin/Globulin Ratio 0.9 (1.0-2.7) L 0.9 (1.0-2.7) L Urine Color Pale yellow Urine Appearance Clear Urine pH 7 (4.5-8.0) Urine Specific [place] 1.005 (1.005-1.035) Urine Protein Negative (NEGATIVE) Urine Glucose (UA) Negative (NEGATIVE) Urine Ketones Negative (NEGATIVE) Urine Occult Blood Negative (NEGATIVE) Urine Nitrite Negative (NEGATIVE) Urine Bilirubin Negative (NEGATIVE) Urine Urobilinogen 4 MG/DL (0.0-1.0) H Urine Leukocyte Esterase 2+ (NEGATIVE) H Urine RBC 0-2 /HPF (0 - 0) H Urine WBC 2-4 /HPF (0 - 0) Urine Squamous Epithelial Cells None /LPF (NONE/OCC) Urine Bacteria Few /HPF (NONE) Amylase Level 134 U/L (25-115) H Lipase 162 U/L (73-393) Height (Feet): 5 Height (Inches): 8.00 Weight (Pounds): 215 Medications Current Medications Medications (Trade) Dose Ordered Sig/Eda Route PRN Reason Start Time Stop Time Status Last Admin Dose Admin Acetaminophen (Tylenol) 650 mg Q4H PRN ORAL T>100.5 02/17/18 18:45 03/19/18 18:44 Al Hydroxide/Mg Hydroxide (Mylanta II) 30 ml Q6H PRN ORAL dyspepsia 02/17/18 18:45 03/19/18 18:44 Amlodipine Besylate (Norvasc) 10 mg DAILY ORAL 02/18/18 09:00 03/20/18 08:59 02/18/18 08:59 Dextrose (Dextrose 50%) 25 ml ONCE PRN IV Hypoglycemia 02/17/18 18:45 03/19/18 18:44 Dextrose (Dextrose 50%) 50 ml ONCE PRN IV hypoglycemia 02/17/18 18:45 03/19/18 18:44 Dextrose/Sodium Chloride 1,000 ml @ 75 mls/hr [id number] IV 02/17/18 20:30 03/19/18 20:29 02/18/18 10:34 Diphenhydramine HCl (Benadryl) 25 mg Q6H PRN ORAL Itching/Pruritis 02/17/18 18:45 03/19/18 18:44 Insulin Aspart (NovoLOG) BEFORE MEALS AND HS SUBQ 02/17/18 21:00 03/19/18 20:59 Losartan Potassium (Cozaar) 100 mg DAILY ORAL 02/18/18 09:00 03/20/18 08:59 02/18/18 08:58 Nitroglycerin (Ntg) 0.4 mg Q5MIN X 3 DOSES PRN SL Prn Chest Pain 02/17/18 18:45 03/19/18 18:44 Ondansetron HCl (Zofran) 4 mg Q6H PRN IVP Nausea & Vomiting 02/17/18 18:45 03/19/18 18:44 Pantoprazole (Protonix) 40 mg DAILY ORAL 02/18/18 09:00 03/20/18 08:59 02/18/18 08:58 Polyethylene Glycol (Miralax) 17 gm HSPRN PRN ORAL Constipation 02/17/18 21:00 03/19/18 20:59 Temazepam (Restoril) 15 mg HSPRN PRN ORAL Insomnia 02/17/18 21:00 02/24/18 20:59 Assessment/Plan Problem List: (1) GI bleed ICD Codes: K92.2 - Gastrointestinal hemorrhage, unspecified SNOMED: 05456202 (2) Anemia ICD Codes: D64.9 - Anemia, unspecified SNOMED: 995390155 (3) COPD (chronic obstructive pulmonary disease) ICD Codes: J44.9 - Chronic obstructive pulmonary disease, unspecified SNOMED: 62038824 (4) HTN (hypertension) ICD Codes: I10 - Essential (primary) hypertension SNOMED: 28386525 (5) Diabetes ICD Codes: E11.9 - Type 2 diabetes mellitus without complications SNOMED: 18521349 (6) Hepatitis C ICD Codes: B19.20 - Unspecified viral hepatitis C without hepatic coma SNOMED: 23513256 Assessment/Plan npo iv fluids check H/H prbc prn respiratory treatment titrate fio2 to sat of 92% check electrolytes Balta Luna MD February 18, 2018 12:05
[2018-02-18] MEDS ORDERED: Isovue-300 100ml vial INJ PRN (12:15)
--- NOTE | 2018-02-18 14:50 | Diagnostic Imaging Report ---
Clinical Indication: Follow-up of pulmonary nodules described on prior CT scan Technique: IV administration nonionic contrast. Spiral acquisition obtained through the chest. Multiplanar reconstructions generated. Total dose length product 922.67 mGycm. CTDIvol(s) 22.06 mGy. Dose reduction achieved using automated exposure control Comparison: 12/06/2017 Findings: 7 mm right upper lobe pulmonary nodule is again demonstrated, appears unchanged. Note that on orthogonal reconstructions, this appears flat rather than round. The previously reported left lower lobe nodule currently measures 4 mm in diameter, appears significantly smaller than on the previous study. No new nodules are evident. There is some scarring or atelectasis in the inferomedial right lower lobe which was not evident previously. Again demonstrated is hyperinflation, consistent with COPD. Again demonstrated is fairly extensive lower lobe bronchiectasis. No acute infiltrates. No effusions. Pleural calcifications are seen anterolaterally and posteriorly in the right hemithorax. The heart size is normal. No pericardial effusion. No mediastinal or hilar mass or adenopathy. There is a heterogeneous mass in the right thyroid lower pole which measures 4 cm long axis dimension. This is more clearly evident on the current than on the previous study due to the use of IV contrast. Other smaller thyroid nodules are also demonstrated bilaterally. No axillary or chest wall mass or adenopathy. The bones are unremarkable. The included upper abdominal anatomy demonstrates a 4.4 cm right renal mass which demonstrates nonspecific soft tissue attenuation of approximately 65 Hounsfield units. This does not appear significantly increased in density from the previous noncontrast study. This was demonstrated to be cystic on a recent abdominal ultrasound of 12/05/2017. The liver demonstrates multiple subcentimeter low-attenuation lesions, as well as an 8 mm fluid attenuation lesion in segment 8. The liver demonstrates equivocal slight surface nodularity. There is a 12 mm nodule in the right adrenal which appears unchanged from a prior CT scan of 06/16/2017. Impression: Unchanged 7 mm right upper lobe pulmonary nodule, since prior study of 12/06/2017. This is too small to biopsy, and the morphology is more suggestive of a postinflammatory lesion. Lack of interim growth also suggests benignity, although the intervening time period is too short to state this with any certainty. Further short interval follow-up CT in 6-12 months is recommended Decreased size of previously demonstrated left lower lobe pulmonary nodule, currently measuring 4 mm diameter. Diminution in size does suggest a benign process, unless there has been interim chemotherapy or other intervention that would shrink a malignant nodule. In any case, this is definitely too small to biopsy Scarring or atelectasis in the inferomedial right lower lobe, not evident previously COPD changes, also previously reported 4 cm right lower pole thyroid nodule. Further evaluation with thyroid ultrasound is recommended 12 mm right adrenal nodule, in retrospect evident on earlier studies and appearing unchanged although the interval since the prior study has been too short to confirm benignity. Consider follow-up CT in 12 months 4.4 cm right renal mass. Although the attenuation is nonspecific, review of prior studies indicates that this is a hyperdense cyst Slight hepatic surface nodularity, concerning for early cirrhotic change Right lobe hepatic cysts. Subcentimeter low-attenuation liver lesions, too small to characterize, most likely benign simple cysts The CT scanner at [facility] is accredited by the [employer] and the scans are performed using protocols designed to limit radiation exposure to as low as reasonably achievable to attain images of sufficient resolution adequate for diagnostic evaluation.
[2018-02-18 16:00] VITALS: BP 150/80
[2018-02-18] MEDS ORDERED: Polyethylene Glycol 238gm bottle ORAL ONE (16:00)
[2018-02-18 16:02] LABS: FERRITIN 4 NG/ML (8-388)
[2018-02-18 16:16] LABS: % IRON SATURATION 3 % (15-50); IRON 15 ug/dL (50-175); TOTAL IRON BINDING CAPACITY 551 ug/dL (250-450)
--- NOTE | 2018-02-18 16:30 | Cardiology Report ---
APPROVED REPORT EKG Measurement Heart [id number] MA [id number] [id number] Sinus rhythm with 1st degree AV block with premature supraventricular complexes Left anterior fascicular block Abnormal ECG
--- NOTE | 2018-02-18 16:35 | Cardiology Report ---
APPROVED REPORT EKG Measurement Heart [id number] AR [id number] Sinus rhythm with 1st degree AV block with premature supraventricular complexes and with occasional premature ventricular com Left axis deviation Abnormal ECG
--- NOTE | 2018-02-18 18:45 | Consultation ---
DATE OF CONSULTATION: 02/17/2018 HEMATOLOGY/ONCOLOGY CONSULTATION CONSULTING PHYSICIAN: Houston Fountain M.D. REQUESTING PHYSICIAN: Bry Santiago D.O. REASON FOR CONSULTATION: Evaluation of anemia, microcytic anemia, and leukopenia. IDENTIFYING DATA: Dear Dr. Bry Santiago, The patient is a 77-year-old male with a past medical history, which is significant for hyperlipidemia, diabetes mellitus, NV, CAD, CVA, TIA, at this time presents to the hospital with history of anemia on routine labs, had urine sample submitted as well as stool samples, instructed to go to the ER because his blood pressure was decreased, also noted to have blood in the stool. noted, Hematology/Oncology Service consulted for further evaluation and treatment. Has had thus far INR was 1.1. Imaging has been reviewed as well. CTA of the chest completed not too long ago and showed a growth of 5 mm lower lung nodule compared to 06/16/2017, findings suspicious for metastatic disease, 7 mm right upper lobe nodule as well. Prior hospitalizations have been reviewed. The patient was admitted back in 12/03/2017 as well and saw the patient at that time. PAST MEDICAL HISTORY: Includes COPD, CVA, TIA, NV, hypertension, and diabetes mellitus. SOCIAL HISTORY: No alcohol, tobacco, or illicit drug use. ALLERGIES: No known drug allergies. REVIEW OF SYSTEMS: CONSTITUTIONAL: No fevers, chills, or night sweats. SKIN: No rashes, bumps, or itching. HEENT: No headache, hearing or vision changes. BREASTS: No lumps, pain, or discharge. PULMONARY: No cough, sputum, or shortness of breath. GASTROINTESTINAL: No nausea, vomiting, or diarrhea. GENITOURINARY: No dysuria, frequency, or urgency. MUSCULOSKELETAL: No joint swelling, muscle pain, or trauma. SOCIAL HISTORY: Noncontributory. FAMILY HISTORY: Noncontributory. PHYSICAL EXAMINATION: VITAL SIGNS: Reviewed. GENERAL: No acute distress. PULMONARY: Decreased breath sounds. CARDIOVASCULAR: Regular rate. No S3 or S4. ABDOMEN: Soft, nontender, nondistended. EXTREMITIES: No cyanosis, swelling, or edema. LABORATORY AND DIAGNOSTIC DATA: WBC 4.3, hemoglobin 9, hematocrit 33, and platelet count 209,000, . BUN of 16, creatinine 1.2. INR of 1.1. Prior admissions reviewed. ASSESSMENT AND RECOMMENDATIONS: 1. Anemia due to underlying gastrointestinal bleed. Evaluate with anemia workup including ferritin, TIBC, ESR, CRP, B12, TSH. 2. Anemia of iron deficiency history, evaluated the patient and is iron-deficient at this time. Ordered Ferritin. Consider use of iron. 3. Lung nodules, 5 mm on the left side, suspicious for metastatic disease and 6 to 7 mm on the right. The left lower lung nodule, appears much larger on exam consistent with potential neoplastic disease. Recommend to obtain a CT-guided biopsy of the left lower lung nodule. Order has been placed. 4. Diabetes mellitus. Blood sugar goal less than 120, goal between 80 and 120. 5. Lightheadedness, potentially secondary to underlying anemia. 6. Hypertension, systolic blood pressure goal less than 140. 7. I appreciate the consultation. Houston Fountain M.D. DR: STEPHANIE JOB#: [id number] CC:
--- NOTE | 2018-02-18 19:45 | Consultation ---
Consult Note Consult Note [id number] Assessment/Plan ASSESSMENT: The patient is a 77-year-old male with: Afebrile NL WBC Bronchitis/ Pneumonia. Chest x-ray: Interstitial marking of right lung and left lung base associated with bronchial wall thickening. Influenza screening.: Neg HIV Neg Hep C Ab +, Hep C PCR + Hep A/B neg Probable Lung cancer CT: Interval growth of a 5 mm left lower lobe lung nodule compared to 06/16 17. Findings suspicious for metastatic disease. Smoker. Anemia. ? gastrointestinal bleed U S: Coarsened liver echotexture Hypertension Bronchitis Diabetes History of CVA PLAN: monitopr off of AB Rx the patient Monitor CBC. Monitor BMP. Monitor chest x-ray. Monitor cultures (blood and sputum). Hem following GI cons out pt Hep C Rx Jesus Tarango MD February 18, 2018 19:45
[2018-02-18 20:00] VITALS: BP 158/91
--- NOTE | 2018-02-18 21:30 | History and Physical Report ---
DATE OF ADMISSION: 02/17/2018 TIME: At 2 p.m. CONSULTANTS: 1. Darin Watts M.D. 2. Houston Fountain M.D. 3. Balta Luna M.D. CHIEF COMPLAINT: Shortness of breath, weakness, and anemia. BRIEF HISTORY: This is a 77-year-old male, who lives at home, presented with increased shortness of breath for two days and was found to be anemic via home health, diagnosed the above, and admitted to telemetry for further care. Currently, sitting in chair, slight short of breath. No complaint. PAST MEDICAL HISTORY: Atrial fibrillation, renal insufficiency, hypertension, COPD, hepatitis C, and diabetes. PAST SURGICAL HISTORY: Unknown. MEDICATIONS: MiraLAX, , Norvasc, Cozaar, Protonix, Restoril, Tylenol, and nitroglycerin. ALLERGIES: Denies. SOCIAL HISTORY: No smoking. No alcohol. No intravenous drug abuse. FAMILY HISTORY: Noncontributory. REVIEW OF SYSTEMS: No chest pain. Slight short of breath. No nausea, vomiting, or diarrhea. PHYSICAL EXAMINATION: GENERAL: Calm in room, oriented x2, in no acute distress. VITAL SIGNS: Temperature 97 degrees, pulse 83, respirations 20, and blood pressure 140/90. CARDIOVASCULAR: No murmur. LUNGS: Poor air exchange. ABDOMEN: Bowel sounds distant. EXTREMITIES: No cyanosis, clubbing, or edema. NEUROLOGIC: The patient moves all extremities, but slightly weak. LABORATORY DATA: Labs at this time show white count 4.4, hemoglobin and hematocrit 9.3/32, and platelets 205. BMP shows potassium 3.4, otherwise normal. Amylase 134. INR is 1.0. Urinalysis, 2+ leukocyte esterase. ASSESSMENT: 1. Shortness of breath. 2. Anemia. 3. UTI. 4. Weakness. 5. History of atrial fibrillation. 6. . 7. Hypertension. 8. COPD. 9. Hepatitis C. 10. Diabetes. 11. Weakness. 12. Hypokalemia. 13. Edema. PLAN: 1. Continue previous medications. 2. O2 and pulmonary treatment. 3. Blood pressure and blood sugar control. 4. Dietary followup. 5. OT/PT. 6. Dietary evaluation. 7. CBC and BMP in the morning. Bry Santiago D.O. DR: BREANNE JOB#: [id number] CC:
[2018-02-18] MEDS ORDERED: D5 1/2NS 1000ml IV ONE (22:26)
[2018-02-19] VITALS: BP 154/96
--- NOTE | 2018-02-19 02:30 | Consultation ---
DATE OF CONSULTATION: 02/18/2018 NEPHROLOGY CONSULTATION CONSULTING PHYSICIAN: Sharri Munoz M.D. REFERRING PHYSICIAN: Bry Santiago D.O. REASON FOR CONSULTATION: Hyponatremia and electrolyte imbalance. HISTORY OF PRESENT ILLNESS: The patient is a 77-year-old male, unfortunate with multiple medical history including diabetes, hypertension, CVA, CAD, TIA, history of hyperlipidemia, who was presented to [facility] for possible GI bleeding and hypotension. Upon workup in the ER, the patient was found to have a temperature of 98 degrees, blood pressure was only 124/77, pulse was 73, but on further workup, the patient found to have a 5 mm long mass and also found to have hypokalemia, anemia. The patient consequently was admitted in telemetry unit. I was called for management of renal disease and electrolyte imbalance. PAST MEDICAL HISTORY: 1. Diabetes. 2. Diabetic neuropathy. 3. Hypertension. 4. MO. 5. CAD. 6. CVA. 7. TIA. 8. Anemia. PAST SURGICAL HISTORY: None. ALLERGIES: No known drug allergy. MEDICATIONS: 1. Albuterol and Atrovent p.r.n. shortness of breath. 2. Amlodipine 10 mg p.o. daily. 3. Aspirin 81 mg p.o. daily. 4. Atorvastatin 20 mg daily. 5. Iron sulfate 325 mg p.o. daily. 6. Hydrochlorothiazide 25 mg p.o. daily. 7. Losartan 50 mg p.o. daily. 8. Metformin 1000 mg daily. 9. Pantoprazole 40 mg p.o. daily. 10. Simvastatin 40 mg p.o. daily. FAMILY HISTORY: Noncontributory. REVIEW OF SYSTEMS: GENERAL: He complained of generalized weakness. Denies any fever, chills, or night sweats. HEAD AND NECK: Denies any dysphagia, odynophagia, blurry vision, headache, and neck stiffness. PULMONARY: No shortness of breath. Occasional cough. No sputum. CARDIOVASCULAR: Denies any chest pain or palpitation. GASTROINTESTINAL: Complained of blood in diaper, blood in stool. Otherwise, no nausea, no vomiting, and no hematemesis. GENITOURINARY: Denies any dysuria, frequency, or hematuria. MUSCULOSKELETAL: Denies any weakness or numbness. PHYSICAL EXAMINATION: VITAL SIGNS: The patient currently has temperature of 98 degrees, blood pressure 145/68, pulse rate of 85, and respiratory rate of 18. HEAD AND NECK: No JVP. No LAD. No thyromegaly. Extraocular movements are intact. Pupils are reactive to light and accommodation. LUNGS: . CARDIAC: Regular rate and rhythm. S1 and S2. No murmur. No rub. ABDOMEN: Soft, nontender, and nondistended. EXTREMITIES: No edema. No clubbing. No cyanosis. NEUROLOGIC: Cranial nerves II through XII within normal limits. Upper and lower extremities are grossly intact. LABORATORY AND DIAGNOSTIC DATA: The patient has WBC count of 4.4, hemoglobin is 9.3, hematocrit of 32, and platelet count of 205. Chemistry reveals sodium of 138, potassium 3.4, chloride 99, bicarbonate 31, BUN of 12, creatinine of 1.1, and glucose of 96. Calcium of 9.5. Iron saturation of 15%. AST of 38, ALT of 51, and alkaline phosphatase was 63. Amylase and lipase within normal limits. TSH 128. UA reveals specific gravity of 1.005, pH of 7, leukocyte esterase 2+, rbc 0 to 2 and wbc 2 to 4. ASSESSMENT: 1. Hypokalemia, most likely gastrointestinal . 2. Rule out diabetic nephropathy. 3. Gastrointestinal bleeding. 4. Hypertension, well controlled. 5. Diabetes. 6. Dyslipidemia. 7. History of cerebrovascular accident. 8. History of transient ischemic attack. PLAN: Plan for the patient to obtain UA. Check the random urine [id number] ratio to calculate the proteinuria. Check the urine sodium and creatinine to calculate fractional excretion of sodium. Check the urine potassium, replace electrolytes. Check the magnesium level. Again, I would like to thank Dr. Bry Santiago for allowing me to participate in the care of this patient. Sharri Munoz M.D. DR: JUDE JOB#: [id number] CC:
[2018-02-19 04:00] VITALS: BP 157/97
[2018-02-19] MEDS: NovoLOG Insulin Flexpen SUBQ SCH ×4 (06:25→20:30)
[2018-02-19 08:00] VITALS: BP 135/88
[2018-02-19 08:32] LABS: BASOPHILS % (AUTO) 1.7 % (0.0-2.0); EOSINOPHILS % (AUTO) 5.2 % (0.0-3.0); HEMATOCRIT 32.3 % (42.0-52.0); HEMOGLOBIN 9.1 G/DL (14.2-18.0); LYMPHOCYTES % (AUTO) 26.5 % (20.0-45.0); MEAN CORPUSCULAR VOLUME 64 FL (80-99); MONOCYTES % (AUTO) 13.7 % (1.0-10.0); NEUTROPHILS % (AUTO) 52.9 % (45.0-75.0); PLATELET COUNT 254 K/UL (150-450); RED BLOOD COUNT 5.02 M/UL (4.70-6.10); RED CELL DISTRIBUTION WIDTH 18.3 % (11.6-14.8); WHITE BLOOD COUNT 4.4 K/UL (4.8-10.8)
--- NOTE | 2018-02-19 08:32 | Nephrology Progress Note ---
Assessment/Plan Assessment 1. Hypokalemia, 2. Rule out diabetic nephropathy. 3. Gastrointestinal bleeding. 4. Hypertension, well controlled. 5. Diabetes. 6. Dyslipidemia. 7. History of cerebrovascular accident. 8. History of transient ischemic attack. Plan PLAN fallow up with urine study replace electrolyte as need ivf monitoring out put avoid NSAID continue with current anti hypertensive meds Subjective Constitutional: Reports: malaise, weakness HEENT: Reports: no symptoms Genitourinary: Reports: no symptoms Neurologic/Psychiatric: Reports: no symptoms Subjective NPO for endoscopy today dines any abd pain ,nausea or vomiting Objective Objective Last 24 Hour Vital Signs Date Time Temp Pulse Resp B/P (MAP) Pulse Ox O2 Delivery O2 Flow Rate FiO2 02/19/18 08:00 97.4 99 22 135/88 93 Room Air 97.4 02/19/18 04:00 91 02/19/18 04:00 97.3 91 20 157/97 97 Room Air 97.3 02/19/18 00:00 96.8 88 20 154/96 97 Room Air 96.8 02/18/18 20:00 102 02/18/18 20:00 97.2 102 20 158/91 97 Room Air 97.2 02/18/18 16:00 97.0 85 21 150/80 97 Room Air 97.0 02/18/18 15:13 87 02/18/18 12:00 97.0 83 20 140/90 94 Room Air 97.0 02/18/18 11:45 85 02/18/18 08:59 89 145/68 02/18/18 08:58 145/68 Intake and Output 02/18/18 02/19/18 19:00 07:00 Intake Total 1475 ml Balance 1475 ml Intake Oral 800 ml IV Total 675 ml # Voids 4 # Bowel Movements 2 Laboratory Tests 02/18/18 23:44: Urine Random Creatinine [Pending], Urine Random Microalbumin [Pending], Urine Random Total Protein 14H, Urine Random Sodium 30, Urine Creatinine 63.9, Urine Microalbumin/Creatinine Ratio [Pending], Urine Potassium Timed 19, Stool Occult Blood [Pending] 02/19/18 07:30: White Blood Count [Pending], Red Blood Count [Pending], Hemoglobin [Pending], Hematocrit [Pending], Mean Corpuscular Volume [Pending], Mean Corpuscular Hemoglobin [Pending], Mean Corpuscular Hemoglobin Concent [Pending], Red Cell Distribution Width [Pending], Platelet Count [Pending], Mean Platelet Volume [ Pending], Neutrophils (%) (Auto) [Pending], Lymphocytes (%) (Auto) [Pending], Monocytes (%) (Auto) [Pending], Eosinophils (%) (Auto) [Pending], Basophils (%) (Auto) [Pending], Prothrombin Time [Pending], Prothromb Time International Ratio [Pending], Activated Partial Thromboplast Time [Pending], Sodium Level [ Pending], Potassium Level [Pending], Chloride Level [Pending], Carbon Dioxide Level [Pending], Blood Urea Nitrogen [Pending], Creatinine [Pending], Estimat Glomerular Filtration Rate [Pending], Glucose Level [Pending], Calcium Level [ Pending] Height (Feet): 5 Height (Inches): 8.00 Weight (Pounds): 215 Objective HEAD AND NECK: No JVP. No LAD. No thyromegaly. Extraocular movements are intact. Pupils are reactive to light and accommodation. LUNGS: CTA CARDIAC: Regular rate and rhythm. S1 and S2. No murmur. No rub. ABDOMEN: Soft, nontender, and nondistended. EXTREMITIES: No edema. No clubbing. No cyanosis. NEUROLOGIC: Cranial nerves II through XII within normal limits. Upper and lower extremities are grossly intact. Sharri Munoz MD February 19, 2018 08:32
[2018-02-19 08:39] LABS: INR 1.1 (0.9-1.1)
[2018-02-19 08:42] LABS: ANION GAP 8 mmol/L (5-15); BLOOD UREA NITROGEN 8 mg/dL (7-18); CALCIUM 9.4 MG/DL (8.5-10.1); CARBON DIOXIDE 29 MMOL/L (21-32); CHLORIDE 101 MMOL/L (98-107); CREATININE 1.1 MG/DL (0.55-1.30); POTASSIUM 3.6 MMOL/L (3.5-5.1); SODIUM 138 MMOL/L (136-145)
--- NOTE | 2018-02-19 09:16 | General Progress Note ---
Assessment/Plan Assessment/Plan ASSESSMENT AND RECOMMENDATIONS: #. SEVERE Anemia due to iron deficiency (ferritin of 5, TIBC of 545, %sat is just 4!) -- underlying gi bleed is most likely cultprit --> has been started on venofer x 5 days --> gi eval with potential capsule endos --> outpatient po ferrous sulfate #. Pulmonary lung nodules, 5 mm on the left side, have reviewed new CT scan and is unchanged, therefore can be monitored with ct in 6 mo --> likely post-inflammatory in etiology #. Renal mass also appears unchanged, urology outpatient eval #. Diabetes mellitus. Blood sugar goal less than 120, goal between 80 and 120. #. Lightheadedness, potentially secondary to underlying anemia. #. Hypertension, systolic blood pressure goal less than 140. Subjective Date patient seen: February 18, 2018 Constitutional: Reports: no symptoms HEENT: Denies: no symptoms, eye pain, blurred vision, tearing, double vision, ear pain, ear discharge, nose pain, nose congestion, throat pain, throat swelling, mouth pain, mouth swelling, other Cardiovascular: Denies: no symptoms, chest pain, edema, irregular heart rate, lightheadedness, palpitations, syncope, other Respiratory: Denies: no symptoms, cough, orthopnea, shortness of breath, SOB with excertion, SOB at rest, sputum, stridor, wheezing, other Gastrointestinal/Abdominal: Denies: no symptoms, abdomen distended, abdominal pain, black stools, tarry stools, blood in stool, constipated, diarrhea, difficulty swallowing, nausea, poor appetite, poor fluid intake, rectal bleeding , vomiting, other Genitourinary: Denies: no symptoms, burning, discharge, frequency, flank pain, hematuria, incontinence, pain, urgency, other Neurologic/Psychiatric: Denies: no symptoms, anxiety, depressed, emotional problems, headache, numbness, paresthesia, pre-existing deficit, seizure, tingling, tremors, weakness, other Endocrine: Denies: no symptoms, excessive sweating, flushing, intolerance to cold, intolerance to heat, increased hunger, increased thirst, increased urine, unexplained weight gain, unexplained weight loss, other Allergies: Coded Allergies: No Known Allergies (Unverified , 06/20/14) Subjective gi to eval further, no complaints Objective Last 24 Hour Vital Signs Date Time Temp Pulse Resp B/P (MAP) Pulse Ox O2 Delivery O2 Flow Rate FiO2 02/19/18 08:00 97.4 99 22 135/88 93 Room Air 97.4 02/19/18 04:00 91 02/19/18 04:00 97.3 91 20 157/97 97 Room Air 97.3 02/19/18 00:00 96.8 88 20 154/96 97 Room Air 96.8 02/18/18 20:00 102 02/18/18 20:00 97.2 102 20 158/91 97 Room Air 97.2 02/18/18 16:00 97.0 85 21 150/80 97 Room Air 97.0 02/18/18 15:13 87 02/18/18 12:00 97.0 83 20 140/90 94 Room Air 97.0 02/18/18 11:45 85 Intake and Output 02/18/18 02/19/18 19:00 07:00 Intake Total 1475 ml Balance 1475 ml Intake Oral 800 ml IV Total 675 ml # Voids 4 # Bowel Movements 2 Laboratory Tests 02/18/18 23:44: Urine Random Creatinine [Pending], Urine Random Microalbumin [Pending], Urine Random Total Protein 14H, Urine Random Sodium 30, Urine Creatinine 63.9, Urine Microalbumin/Creatinine Ratio [Pending], Urine Potassium Timed 19, Stool Occult Blood [Pending] 02/19/18 07:30: White Blood Count 4.4L, Red Blood Count 5.02, Hemoglobin 9.1L, Hematocrit 32.3L , Mean Corpuscular Volume 64L, Mean Corpuscular Hemoglobin 18.1L, Mean Corpuscular Hemoglobin Concent 28.1L, Red Cell Distribution Width 18.3H, Platelet Count 254, Mean Platelet Volume 10.8H, Neutrophils (%) (Auto) 52.9, Lymphocytes (%) (Auto) 26.5, Monocytes (%) (Auto) 13.7H, Eosinophils (%) (Auto) 5.2H, Basophils (%) (Auto) 1.7, Prothrombin Time 11.4, Prothromb Time International Ratio 1.1, Activated Partial Thromboplast Time 28, Sodium Level 138, Potassium Level 3.6, Chloride Level 101, Carbon Dioxide Level 29, Anion Gap 8, Blood Urea Nitrogen 8, Creatinine 1.1, Estimat Glomerular Filtration Rate , Glucose Level 112H, Calcium Level 9.4 Height (Feet): 5 Height (Inches): 8.00 Weight (Pounds): 215 General Appearance: no apparent distress EENT: normal ENT inspection Neck: normal alignment Cardiovascular: normal rate Respiratory/Chest: lungs clear Abdomen: non tender, hyperactive bowel sounds Extremities: non-tender Edema: 1+ Leg (L), 1+ Leg (R) Neurologic: alert Skin: warm/dry Houston Fountain MD February 19, 2018 09:16
[2018-02-19] MEDS: Losartan 50mg tab ORAL SCH (09:44)
--- NOTE | 2018-02-19 10:29 | Infectious Diseases Prog Note ---
Assessment/Plan Assessment/Plan ASSESSMENT: The patient is a 77-year-old male with: Afebrile NL WBC Bronchitis/ Pneumonia. Chest x-ray: Interstitial marking of right lung and left lung base associated with bronchial wall thickening. Influenza screening.: Neg HIV Neg Hep C Ab +, Hep C PCR + Hep A/B neg Probable Lung cancer CT: Interval growth of a 5 mm left lower lobe lung nodule compared to 06/16 17. Findings suspicious for metastatic disease. Smoker. Anemia. ? gastrointestinal bleed U S: Coarsened liver echotexture Hypertension Bronchitis Diabetes History of CVA PLAN: monitopr off of AB Rx the patient Monitor CBC. Monitor BMP. Monitor chest x-ray. Monitor cultures (blood and sputum). Hem following GI sup : SB capsule endoscopy scheduled for today out pt Hep C Rx Subjective Allergies: Coded Allergies: No Known Allergies (Unverified , 06/20/14) Subjective Afebrile Objective Vital Signs Last 24 Hour Vital Signs Date Time Temp Pulse Resp B/P (MAP) Pulse Ox O2 Delivery O2 Flow Rate FiO2 02/19/18 09:44 135/88 02/19/18 09:44 99 135/88 02/19/18 08:00 97.4 99 22 135/88 93 Room Air 97.4 02/19/18 04:00 91 02/19/18 04:00 97.3 91 20 157/97 97 Room Air 97.3 02/19/18 00:00 96.8 88 20 154/96 97 Room Air 96.8 02/18/18 20:00 102 02/18/18 20:00 97.2 102 20 158/91 97 Room Air 97.2 02/18/18 16:00 97.0 85 21 150/80 97 Room Air 97.0 02/18/18 15:13 87 02/18/18 12:00 97.0 83 20 140/90 94 Room Air 97.0 02/18/18 11:45 85 Height (Feet): 5 Height (Inches): 8.00 Weight (Pounds): 215 HEENT: anicteric Respiratory/Chest: no respiratory distress Cardiovascular: regular rhythm Abdomen: soft, non tender Laboratory Tests Test 02/18/18 23:44 02/19/18 07:30 Urine Random Creatinine Pending Urine Random Microalbumin Pending Urine Random Total Protein 14 MG/DL (< 11.9) H Urine Random Sodium 30 mmol/L (20-110) Urine Creatinine 63.9 MG/DL (30.0-125.0) Urine Microalbumin/Creatinine Ratio Pending Urine Potassium Timed 19 mmol/L (12-62) Stool Occult Blood Pending White Blood Count 4.4 K/UL (4.8-10.8) L Red Blood Count 5.02 M/UL (4.70-6.10) Hemoglobin 9.1 G/DL (14.2-18.0) L Hematocrit 32.3 % (42.0-52.0) L Mean Corpuscular Volume 64 FL (80-99) L Mean Corpuscular Hemoglobin 18.1 PG (27.0-31.0) L Mean Corpuscular Hemoglobin Concent 28.1 G/DL (32.0-36.0) L Red Cell Distribution Width 18.3 % (11.6-14.8) H Platelet Count 254 K/UL (150-450) Mean Platelet Volume 10.8 FL (6.5-10.1) H Neutrophils (%) (Auto) 52.9 % (45.0-75.0) Lymphocytes (%) (Auto) 26.5 % (20.0-45.0) Monocytes (%) (Auto) 13.7 % (1.0-10.0) H Eosinophils (%) (Auto) 5.2 % (0.0-3.0) H Basophils (%) (Auto) 1.7 % (0.0-2.0) Prothrombin Time 11.4 SEC (9.30-11.50) Prothromb Time International Ratio 1.1 (0.9-1.1) Activated Partial Thromboplast Time 28 SEC (23-33) Sodium Level 138 MMOL/L (136-145) Potassium Level 3.6 MMOL/L (3.5-5.1) Chloride Level 101 MMOL/L (98-107) Carbon Dioxide Level 29 MMOL/L (21-32) Anion Gap 8 mmol/L (5-15) Blood Urea Nitrogen 8 mg/dL (7-18) Creatinine 1.1 MG/DL (0.55-1.30) Estimat Glomerular Filtration Rate mL/min (>60) Glucose Level 112 MG/DL (74-106) H Calcium Level 9.4 MG/DL (8.5-10.1) Current Medications Medications (Trade) Dose Ordered Sig/Eda Route PRN Reason Start Time Stop Time Status Last Admin Dose Admin Acetaminophen (Tylenol) 650 mg Q4H PRN ORAL T>100.5 02/17/18 18:45 03/19/18 18:44 Al Hydroxide/Mg Hydroxide (Mylanta II) 30 ml Q6H PRN ORAL dyspepsia 02/17/18 18:45 03/19/18 18:44 Amlodipine Besylate (Norvasc) 10 mg DAILY ORAL 02/18/18 09:00 03/20/18 08:59 02/19/18 09:44 Dextrose (Dextrose 50%) 25 ml ONCE PRN IV Hypoglycemia 02/17/18 18:45 03/19/18 18:44 Dextrose (Dextrose 50%) 50 ml ONCE PRN IV hypoglycemia 02/17/18 18:45 03/19/18 18:44 Dextrose/Sodium Chloride 1,000 ml @ 75 mls/hr [id number] IV 02/17/18 20:30 03/19/18 20:29 02/18/18 10:34 Diphenhydramine HCl (Benadryl) 25 mg Q6H PRN ORAL Itching/Pruritis 02/17/18 18:45 03/19/18 18:44 Insulin Aspart (NovoLOG) BEFORE MEALS AND HS SUBQ 02/17/18 21:00 03/19/18 20:59 02/18/18 21:21 Iopamidol (Isovue-300 100ml) 100 ml NOW PRN INJ Radiology Procedure 02/18/18 12:15 02/20/18 12:05 Iron Sucrose 100 mg/Sodium Chloride 60 ml @ 240 mls/hr BEDTIME IV 02/19/18 21:00 02/23/18 21:14 Losartan Potassium (Cozaar) 100 mg DAILY ORAL 02/18/18 09:00 03/20/18 08:59 02/19/18 09:44 Nitroglycerin (Ntg) 0.4 mg Q5MIN X 3 DOSES PRN SL Prn Chest Pain 02/17/18 18:45 03/19/18 18:44 Ondansetron HCl (Zofran) 4 mg Q6H PRN IVP Nausea & Vomiting 02/17/18 18:45 03/19/18 18:44 Pantoprazole (Protonix) 40 mg DAILY ORAL 02/18/18 09:00 03/20/18 08:59 02/19/18 09:44 Polyethylene Glycol (Miralax) 17 gm HSPRN PRN ORAL Constipation 02/17/18 21:00 03/19/18 20:59 Temazepam (Restoril) 15 mg HSPRN PRN ORAL Insomnia 02/17/18 21:00 02/24/18 20:59 Jesus Tarango MD February 19, 2018 10:29
--- NOTE | 2018-02-19 10:30 | Consultation ---
DATE OF CONSULTATION: 02/18/2018 NOTE: "POOR AUDIO QUALITY" INFECTIOUS DISEASE CONSULTATION CONSULTING PHYSICIAN: Jesus Tarango M.D. REFERRING PHYSICIAN: Bry Santiago D.O. REASON FOR CONSULTATION: Evaluation of the patient for antibiotic treatment, history of COPD. HISTORY OF PRESENT ILLNESS: The patient is a 77-year-old male with multiple medical problems, who was admitted to this medical center with weakness and was found to have anemia. The patient is known to our service from recent admission the patient had bronchitis/pneumonia and was treated with 5 days' course of antibiotic treatment. The patient is scheduled for capsule endoscopy tomorrow. The patient has been having significant shortness of breath. Infectious Disease consultation is requested for further evaluation of the patient and possible need for antibiotic treatment. PAST MEDICAL HISTORY: 1. bronchitis/pneumonia. 2. History of hepatitis C antibody positive. 3. History of cancer. 4. Ex-smoker. 5. Anemia, possible GI bleed. 6. Hypertension. 7. History of bronchitis. 8. Diabetes. 9. History of CVA. SOCIAL HISTORY: As mentioned above. ALLERGIES: No known drug allergies. MEDICATIONS: The patient is currently off of antibiotics. REVIEW OF SYSTEMS: A 10-point review was done and except what was mentioned above has been negative. PHYSICAL EXAMINATION: VITAL SIGNS: Temperature 97, pulse 86, respiratory rate 18, and blood pressure 150/80. HEENT: Pale conjunctivae. No icterus. CHEST: Coarse breathing sounds. Mild wheezes. No crackles. HEART: S1, S2. ABDOMEN: Soft, obese, nontender. EXTREMITIES: No cyanosis at this time. NEUROLOGIC: Awake and alert. LABORATORY AND DIAGNOSTIC DATA: White blood cells 4.4, hemoglobin 9.3, and platelets 205,000. UA unremarkable. December 2013, positive. BUN and creatinine are unremarkable unremarkable. CT of the chest showed: 1. A 7-mm right upper lobe pulmonary nodule, unchanged from earlier exam about two months ago. 2. Decreased size of left lower lobe pulmonary nodule. 3. COPD changes. 4. Right adrenal mass/nodule. 5. Right hepatic cyst. ASSESSMENT: 1. The patient is a 77-year-old male with multiple medical problems as above, who does not appear to have any source of infection. The patient does not have any acute bronchitis at this time. 2. Monitor CBC. 3. Monitor BMP. 4. We will follow GI recommendations. 5. The patient needs followup as an outpatient for hepatitis C treatment. 6. Based on the patient's clinical course and laboratories, we will do further recommendation. Thank you, Dr. Bry Santiago, for allowing me to participate in the care of this patient. I will follow the patient with you during this hospitalization. Jesus Tarango M.D. DR: Latrell JOB#: [id number] CC:
--- NOTE | 2018-02-19 10:56 | GI Progress Note ---
Assessment/Plan Problems: (1) Encounter for diagnostic endoscopy ICD Codes: Z01.818 - Encounter for other preprocedural examination SNOMED: 433963819, 928182382 (2) Iron deficiency ICD Codes: E61.1 - Iron deficiency SNOMED: 26439151 (3) GI bleed ICD Codes: K92.2 - Gastrointestinal hemorrhage, unspecified SNOMED: 72518093 (4) Hepatitis C ICD Codes: B19.20 - Unspecified viral hepatitis C without hepatic coma SNOMED: 87303702 (5) Anemia ICD Codes: D64.9 - Anemia, unspecified SNOMED: 018808432 Status: stable Status Narrative Discussed with Dr. Watts. Assessment/Plan SB capsule endoscopy today. - clear liquid diet for lunch @ 1300. - okay for food at 1830. OB stool r/o GI bleed monitor H&H, prn transfusions bowel regime ppi fu labs The patient was seen and examined at bedside and all new and available data was reviewed in the patients chart. I agree with the above findings, impression and plan. (Patient seen earlier today. Signature stamp does not reflect patient encounter time.). - Darin Watts MD Subjective Gastrointestinal/Abdominal: Reports: no symptoms Objective Last 24 Hour Vital Signs Date Time Temp Pulse Resp B/P (MAP) Pulse Ox O2 Delivery O2 Flow Rate FiO2 02/19/18 09:44 135/88 02/19/18 09:44 99 135/88 02/19/18 08:00 97.4 99 22 135/88 93 Room Air 97.4 02/19/18 07:40 100 02/19/18 04:00 91 02/19/18 04:00 97.3 91 20 157/97 97 Room Air 97.3 02/19/18 00:00 96.8 88 20 154/96 97 Room Air 96.8 02/18/18 20:00 102 02/18/18 20:00 97.2 102 20 158/91 97 Room Air 97.2 02/18/18 16:00 97.0 85 21 150/80 97 Room Air 97.0 02/18/18 15:13 87 02/18/18 12:00 97.0 83 20 140/90 94 Room Air 97.0 02/18/18 11:45 85 Intake and Output 02/18/18 02/19/18 19:00 07:00 Intake Total 1475 ml Balance 1475 ml Intake Oral 800 ml IV Total 675 ml # Voids 4 # Bowel Movements 2 Laboratory Tests Test 02/18/18 23:44 02/19/18 07:30 Urine Random Creatinine Pending Urine Random Microalbumin Pending Urine Random Total Protein 14 MG/DL (< 11.9) H Urine Random Sodium 30 mmol/L (20-110) Urine Creatinine 63.9 MG/DL (30.0-125.0) Urine Microalbumin/Creatinine Ratio Pending Urine Potassium Timed 19 mmol/L (12-62) Stool Occult Blood Pending White Blood Count 4.4 K/UL (4.8-10.8) L Red Blood Count 5.02 M/UL (4.70-6.10) Hemoglobin 9.1 G/DL (14.2-18.0) L Hematocrit 32.3 % (42.0-52.0) L Mean Corpuscular Volume 64 FL (80-99) L Mean Corpuscular Hemoglobin 18.1 PG (27.0-31.0) L Mean Corpuscular Hemoglobin Concent 28.1 G/DL (32.0-36.0) L Red Cell Distribution Width 18.3 % (11.6-14.8) H Platelet Count 254 K/UL (150-450) Mean Platelet Volume 10.8 FL (6.5-10.1) H Neutrophils (%) (Auto) 52.9 % (45.0-75.0) Lymphocytes (%) (Auto) 26.5 % (20.0-45.0) Monocytes (%) (Auto) 13.7 % (1.0-10.0) H Eosinophils (%) (Auto) 5.2 % (0.0-3.0) H Basophils (%) (Auto) 1.7 % (0.0-2.0) Prothrombin Time 11.4 SEC (9.30-11.50) Prothromb Time International Ratio 1.1 (0.9-1.1) Activated Partial Thromboplast Time 28 SEC (23-33) Sodium Level 138 MMOL/L (136-145) Potassium Level 3.6 MMOL/L (3.5-5.1) Chloride Level 101 MMOL/L (98-107) Carbon Dioxide Level 29 MMOL/L (21-32) Anion Gap 8 mmol/L (5-15) Blood Urea Nitrogen 8 mg/dL (7-18) Creatinine 1.1 MG/DL (0.55-1.30) Estimat Glomerular Filtration Rate mL/min (>60) Glucose Level 112 MG/DL (74-106) H Calcium Level 9.4 MG/DL (8.5-10.1) Height (Feet): 5 Height (Inches): 8.00 Weight (Pounds): 215 General Appearance: WD/WN, no apparent distress, alert Cardiovascular: normal rate Respiratory/Chest: normal breath sounds, no respiratory distress Abdominal Exam: normal bowel sounds, non tender, soft Extremities: normal range of motion, non-tender Dana Daniel NP February 19, 2018 10:56
--- NOTE | 2018-02-19 11:21 | Pulmonology Progress Note ---
Assessment/Plan Problems: (1) GI bleed (2) Anemia (3) COPD (chronic obstructive pulmonary disease) (4) HTN (hypertension) (5) Diabetes (6) Hepatitis C Assessment/Plan h/h stable gi evaluation IV venofer CT chest reviewed, RUL nodule unchanged renal w/u in progress check electrolytes all notes and meds reviewed. Subjective ROS Limited/Unobtainable: No Constitutional: Reports: no symptoms HEENT: Repors: no symptoms Respiratory: Reports: no symptoms Allergies: Coded Allergies: No Known Allergies (Unverified , 06/20/14) Objective Last 24 Hour Vital Signs Date Time Temp Pulse Resp B/P (MAP) Pulse Ox O2 Delivery O2 Flow Rate FiO2 02/19/18 09:44 135/88 02/19/18 09:44 99 135/88 02/19/18 08:00 97.4 99 22 135/88 93 Room Air 97.4 02/19/18 07:40 100 02/19/18 04:00 91 02/19/18 04:00 97.3 91 20 157/97 97 Room Air 97.3 02/19/18 00:00 96.8 88 20 154/96 97 Room Air 96.8 02/18/18 20:00 102 02/18/18 20:00 97.2 102 20 158/91 97 Room Air 97.2 02/18/18 16:00 97.0 85 21 150/80 97 Room Air 97.0 02/18/18 15:13 87 02/18/18 12:00 97.0 83 20 140/90 94 Room Air 97.0 02/18/18 11:45 85 Intake and Output 02/18/18 02/19/18 19:00 07:00 Intake Total 1475 ml Balance 1475 ml Intake Oral 800 ml IV Total 675 ml # Voids 4 # Bowel Movements 2 General Appearance: WD/WN HEENT: normocephalic, atraumatic Respiratory/Chest: chest wall non-tender, lungs clear Cardiovascular: normal peripheral pulses, regular rhythm Abdomen: normal bowel sounds, soft, non tender, no organomegaly Laboratory Tests 02/18/18 23:44: Urine Random Creatinine [Pending], Urine Random Microalbumin [Pending], Urine Random Total Protein 14H, Urine Random Sodium 30, Urine Creatinine 63.9, Urine Microalbumin/Creatinine Ratio [Pending], Urine Potassium Timed 19, Stool Occult Blood [Pending] 02/19/18 07:30: White Blood Count 4.4L, Red Blood Count 5.02, Hemoglobin 9.1L, Hematocrit 32.3L , Mean Corpuscular Volume 64L, Mean Corpuscular Hemoglobin 18.1L, Mean Corpuscular Hemoglobin Concent 28.1L, Red Cell Distribution Width 18.3H, Platelet Count 254, Mean Platelet Volume 10.8H, Neutrophils (%) (Auto) 52.9, Lymphocytes (%) (Auto) 26.5, Monocytes (%) (Auto) 13.7H, Eosinophils (%) (Auto) 5.2H, Basophils (%) (Auto) 1.7, Prothrombin Time 11.4, Prothromb Time International Ratio 1.1, Activated Partial Thromboplast Time 28, Sodium Level 138, Potassium Level 3.6, Chloride Level 101, Carbon Dioxide Level 29, Anion Gap 8, Blood Urea Nitrogen 8, Creatinine 1.1, Estimat Glomerular Filtration Rate , Glucose Level 112H, Calcium Level 9.4 Current Medications Medications (Trade) Dose Ordered Sig/Eda Route PRN Reason Start Time Stop Time Status Last Admin Dose Admin Acetaminophen (Tylenol) 650 mg Q4H PRN ORAL T>100.5 02/17/18 18:45 03/19/18 18:44 Al Hydroxide/Mg Hydroxide (Mylanta II) 30 ml Q6H PRN ORAL dyspepsia 02/17/18 18:45 03/19/18 18:44 Amlodipine Besylate (Norvasc) 10 mg DAILY ORAL 02/18/18 09:00 03/20/18 08:59 02/19/18 09:44 Dextrose (Dextrose 50%) 25 ml ONCE PRN IV Hypoglycemia 02/17/18 18:45 03/19/18 18:44 Dextrose (Dextrose 50%) 50 ml ONCE PRN IV hypoglycemia 02/17/18 18:45 03/19/18 18:44 Dextrose/Sodium Chloride 1,000 ml @ 75 mls/hr [id number] IV 02/17/18 20:30 03/19/18 20:29 02/18/18 10:34 Diphenhydramine HCl (Benadryl) 25 mg Q6H PRN ORAL Itching/Pruritis 02/17/18 18:45 03/19/18 18:44 Insulin Aspart (NovoLOG) BEFORE MEALS AND HS SUBQ 02/17/18 21:00 03/19/18 20:59 02/18/18 21:21 Iopamidol (Isovue-300 100ml) 100 ml NOW PRN INJ Radiology Procedure 02/18/18 12:15 02/20/18 12:05 Iron Sucrose 100 mg/Sodium Chloride 60 ml @ 240 mls/hr BEDTIME IV 02/19/18 21:00 02/23/18 21:14 Losartan Potassium (Cozaar) 100 mg DAILY ORAL 02/18/18 09:00 03/20/18 08:59 02/19/18 09:44 Nitroglycerin (Ntg) 0.4 mg Q5MIN X 3 DOSES PRN SL Prn Chest Pain 02/17/18 18:45 03/19/18 18:44 Ondansetron HCl (Zofran) 4 mg Q6H PRN IVP Nausea & Vomiting 02/17/18 18:45 03/19/18 18:44 Pantoprazole (Protonix) 40 mg DAILY ORAL 02/18/18 09:00 03/20/18 08:59 02/19/18 09:44 Polyethylene Glycol (Miralax) 17 gm HSPRN PRN ORAL Constipation 02/17/18 21:00 03/19/18 20:59 Temazepam (Restoril) 15 mg HSPRN PRN ORAL Insomnia 02/17/18 21:00 02/24/18 20:59 Balta Luna MD February 19, 2018 11:21
[2018-02-19 12:00] VITALS: BP 137/87
[2018-02-19] MEDS: D5 1/2NS 1,000 ML IV SCH (12:55)
--- NOTE | 2018-02-19 15:39 | General Progress Note ---
Assessment/Plan Problem List: (1) Anemia ICD Codes: D64.9 - Anemia, unspecified SNOMED: 674283723 (2) UTI (urinary tract infection) ICD Codes: N39.0 - Urinary tract infection, site not specified SNOMED: 79495744 (3) COPD (chronic obstructive pulmonary disease) ICD Codes: J44.9 - Chronic obstructive pulmonary disease, unspecified SNOMED: 07691231 (4) HTN (hypertension) ICD Codes: I10 - Essential (primary) hypertension SNOMED: 68614095 (5) Hepatitis C ICD Codes: B19.20 - Unspecified viral hepatitis C without hepatic coma SNOMED: 88851130 (6) Diabetes ICD Codes: E11.9 - Type 2 diabetes mellitus without complications SNOMED: 62884027 (7) Renal insufficiency ICD Codes: N28.9 - Disorder of kidney and ureter, unspecified SNOMED: 593287311 (8) Rapid atrial fibrillation ICD Codes: I48.91 - Unspecified atrial fibrillation SNOMED: 675877990 Status: unchanged Assessment/Plan o2 pulm tx abx ot pt diet cbc bmp am Subjective Constitutional: Reports: weakness Allergies: Coded Allergies: No Known Allergies (Unverified , 06/20/14) All Systems: reviewed and negative except above Subjective sleepy calm Objective Last 24 Hour Vital Signs Date Time Temp Pulse Resp B/P (MAP) Pulse Ox O2 Delivery O2 Flow Rate FiO2 02/19/18 12:00 97.9 89 22 137/87 93 Room Air 97.9 02/19/18 11:53 87 02/19/18 09:44 135/88 02/19/18 09:44 99 135/88 02/19/18 08:00 97.4 99 22 135/88 93 Room Air 97.4 02/19/18 07:40 100 02/19/18 04:00 91 02/19/18 04:00 97.3 91 20 157/97 97 Room Air 97.3 02/19/18 00:00 96.8 88 20 154/96 97 Room Air 96.8 02/18/18 20:00 102 02/18/18 20:00 97.2 102 20 158/91 97 Room Air 97.2 02/18/18 16:00 97.0 85 21 150/80 97 Room Air 97.0 Intake and Output 02/18/18 02/19/18 19:00 07:00 Intake Total 1475 ml 75 ml Balance 1475 ml 75 ml Intake Oral 800 ml IV Total 675 ml 75 ml # Voids 4 # Bowel Movements 2 Laboratory Tests 02/18/18 23:44: Urine Random Creatinine [Pending], Urine Random Microalbumin [Pending], Urine Random Total Protein 14H, Urine Random Sodium 30, Urine Creatinine 63.9, Urine Microalbumin/Creatinine Ratio [Pending], Urine Potassium Timed 19, Stool Occult Blood Positive 02/19/18 07:30: White Blood Count 4.4L, Red Blood Count 5.02, Hemoglobin 9.1L, Hematocrit 32.3L , Mean Corpuscular Volume 64L, Mean Corpuscular Hemoglobin 18.1L, Mean Corpuscular Hemoglobin Concent 28.1L, Red Cell Distribution Width 18.3H, Platelet Count 254, Mean Platelet Volume 10.8H, Neutrophils (%) (Auto) 52.9, Lymphocytes (%) (Auto) 26.5, Monocytes (%) (Auto) 13.7H, Eosinophils (%) (Auto) 5.2H, Basophils (%) (Auto) 1.7, Prothrombin Time 11.4, Prothromb Time International Ratio 1.1, Activated Partial Thromboplast Time 28, Sodium Level 138, Potassium Level 3.6, Chloride Level 101, Carbon Dioxide Level 29, Anion Gap 8, Blood Urea Nitrogen 8, Creatinine 1.1, Estimat Glomerular Filtration Rate , Glucose Level 112H, Calcium Level 9.4 Height (Feet): 5 Height (Inches): 8.00 Weight (Pounds): 215 General Appearance: lethargic EENT: normal ENT inspection Neck: normal alignment Cardiovascular: normal peripheral pulses, normal rate, regular rhythm Respiratory/Chest: chest wall non-tender, decreased breath sounds Abdomen: normal bowel sounds, non tender, soft Extremities: normal inspection Edema: no edema noted Arm (L), no edema noted Arm (R), no edema noted Leg (L), no edema noted Leg (R), no edema noted Pedal (L), no edema noted Pedal (R), no edema noted Generalized Neurologic: motor weakness Skin: normal pigmentation, warm/dry Bry Santiagog February 19, 2018 15:39
[2018-02-19 15:59] VITALS: BP 118/81
--- NOTE | 2018-02-19 18:45 | Cardiology Progress Note ---
Assessment/Plan Assessment/Plan The patient is seen and examined, full consult note will be dictated shortly. Objective Last 24 Hour Vital Signs Date Time Temp Pulse Resp B/P (MAP) Pulse Ox O2 Delivery O2 Flow Rate FiO2 02/19/18 15:59 97.4 103 21 118/81 95 Room Air 97.4 02/19/18 15:21 92 02/19/18 12:00 97.9 89 22 137/87 93 Room Air 97.9 02/19/18 11:53 87 02/19/18 09:44 135/88 02/19/18 09:44 99 135/88 02/19/18 08:00 97.4 99 22 135/88 93 Room Air 97.4 02/19/18 07:40 100 02/19/18 04:00 91 02/19/18 04:00 97.3 91 20 157/97 97 Room Air 97.3 02/19/18 00:00 96.8 88 20 154/96 97 Room Air 96.8 02/18/18 20:00 102 02/18/18 20:00 97.2 102 20 158/91 97 Room Air 97.2 Intake and Output 02/18/18 02/19/18 19:00 07:00 Intake Total 1475 ml 75 ml Balance 1475 ml 75 ml Intake Oral 800 ml IV Total 675 ml 75 ml # Voids 4 # Bowel Movements 2 Laboratory Tests Test 02/18/18 23:44 02/19/18 07:30 Urine Random Creatinine Pending Urine Random Microalbumin Pending Urine Random Total Protein 14 MG/DL (< 11.9) H Urine Random Sodium 30 mmol/L (20-110) Urine Creatinine 63.9 MG/DL (30.0-125.0) Urine Microalbumin/Creatinine Ratio Pending Urine Potassium Timed 19 mmol/L (12-62) Stool Occult Blood Positive (NEGATIVE) White Blood Count 4.4 K/UL (4.8-10.8) L Red Blood Count 5.02 M/UL (4.70-6.10) Hemoglobin 9.1 G/DL (14.2-18.0) L Hematocrit 32.3 % (42.0-52.0) L Mean Corpuscular Volume 64 FL (80-99) L Mean Corpuscular Hemoglobin 18.1 PG (27.0-31.0) L Mean Corpuscular Hemoglobin Concent 28.1 G/DL (32.0-36.0) L Red Cell Distribution Width 18.3 % (11.6-14.8) H Platelet Count 254 K/UL (150-450) Mean Platelet Volume 10.8 FL (6.5-10.1) H Neutrophils (%) (Auto) 52.9 % (45.0-75.0) Lymphocytes (%) (Auto) 26.5 % (20.0-45.0) Monocytes (%) (Auto) 13.7 % (1.0-10.0) H Eosinophils (%) (Auto) 5.2 % (0.0-3.0) H Basophils (%) (Auto) 1.7 % (0.0-2.0) Prothrombin Time 11.4 SEC (9.30-11.50) Prothromb Time International Ratio 1.1 (0.9-1.1) Activated Partial Thromboplast Time 28 SEC (23-33) Sodium Level 138 MMOL/L (136-145) Potassium Level 3.6 MMOL/L (3.5-5.1) Chloride Level 101 MMOL/L (98-107) Carbon Dioxide Level 29 MMOL/L (21-32) Anion Gap 8 mmol/L (5-15) Blood Urea Nitrogen 8 mg/dL (7-18) Creatinine 1.1 MG/DL (0.55-1.30) Estimat Glomerular Filtration Rate mL/min (>60) Glucose Level 112 MG/DL (74-106) H Calcium Level 9.4 MG/DL (8.5-10.1) Jorgito Pickering MD February 19, 2018 18:45
[2018-02-19 20:00] VITALS: BP 143/79
[2018-02-19] MEDS: Iron Sucrose 100 MG in NS 55 ML IV SCH (20:28)
--- NOTE | 2018-02-19 23:00 | Consultation ---
DATE OF CONSULTATION: 02/19/2018 CARDIOLOGY CONSULTATION CONSULTING PHYSICIAN: Jorgito Pickering M.D. REFERRING PHYSICIAN: Bry Santiago D.O. REASON FOR CONSULTATION: Management of tachycardia. HISTORY OF PRESENT ILLNESS: The patient is a very pleasant 77-year-old gentleman who presents to the hospital at the request of Dr. Santiago for management of blood in stool. The patient at the time of arrival to the hospital denies any chest pain, shortness of breath, nausea, vomiting, fever or chills however he was found to be tachycardia therefore Cardiology consultation was made at request of Dr. Santiago for evaluation and management of this condition. His cardiac history is also significant for history of coronary artery disease, history of cerebrovascular accident. CAD risk factors of diabetes mellitus and hypertension. PAST MEDICAL HISTORY: Diabetes mellitus, hypertension, history of coronary artery disease status post myocardial infarction, history of CVA, history of anemia. MEDICATIONS: List of medication includes albuterol inhaler 6.7 gram p.r.n. shortness of breath, Norvasc 10 mg p.o. daily, aspirin 81 mg p.o. daily, atorvastatin 20 mg p.o. at bedtime, ferrous sulfate 325 mg twice a day, Humulin insulin 70/30 30 units subcutaneous at breakfast, 20 units at nighttime, hydrochlorothiazide 25 mg p.o. daily, losartan 100 mg p.o. daily, metformin 1000 mg p.o. twice daily, and Protonix 40 mg p.o. daily, and Zocor 40 mg p.o. at bedtime. ALLERGIES: No known drug allergies. PAST SURGICAL HISTORY: None. SOCIAL HISTORY: Denies current tobacco but he was a smoker in the past. Denies any current use of alcohol or illicit drug use. REVIEW OF SYSTEMS: HEENT: Denies any headache, diplopia, or blurred vision. CONSTITUTIONAL: Denies any fever, chills, night sweats, or weight loss. CARDIOVASCULAR: Denies any chest pain, shortness breath, PND, orthopnea, leg swelling. PULMONARY: Denies any cough. Positive wheezing. GASTROINTESTINAL: Had some blood in the stool but no diarrhea, constipation, nausea, vomiting. GENITOURINARY: Denies any hematuria, dysuria, incontinence. NEUROLOGY: Denies any current complaints of lateralization, altered speech, or sensory deficits. PHYSICAL EXAMINATION: VITAL SIGNS: Blood pressure at time of arrival to the hospital was 124/77, respirations 18, pulse of 93, pulse ox of 91% on room air, and temperature 98.3 degrees Fahrenheit. GENERAL: The patient is a very unfortunate 77-old gentleman, in no apparent respiratory distress. Alert and oriented x4. HEENT: Atraumatic and normocephalic. Anicteric. Pupils are equal, round, reactive to light and accommodation. Extraocular muscles intact. NECK: JVP less than 5 cm. No carotid bruit. Carotid upstrokes 2+ bilaterally. CARDIOVASCULAR: Normal S1 and S2. Regular rate and rhythm. No murmurs, gallops, or rubs. PMI is at fourth intercostal space in the midclavicular line. Tachycardic. LUNGS: Diminished breath sounds in both lungs. ABDOMEN: Soft, nontender, nondistended. No hepatosplenomegaly. Positive bowel sounds. EXTREMITIES: No evidence of edema, clubbing, or cyanosis. LABORATORY FINDINGS: WBC is 4.3, hemoglobin 9.0, hematocrit 32.5, platelet count is 209. Sodium was 137, potassium is 3.2, chloride , bicarbonate 31, BUN of 16, creatinine 1.2, glucose 80. Calcium is 9.2. INR was 1.1. CT of the chest at time of arrival to the hospital showed right upper lobe pulmonary nodule which is unchanged as far as the size is concerned, left lower lobe pulmonary nodules, decrease in size, COPD changes, thyroid nodule, right adrenal nodule, right renal mass, early cirrhotic changes, hepatic cysts. A 12-lead electrocardiogram showed sinus rhythm at a rate of 88 with left axis deviation, left anterior fascicular block, no acute ST-T changes. ASSESSMENT AND PLAN: The patient is an very unfortunate 77-year-old gentleman, seen in Cardiology consultation at request of Dr. Santiago. 1. Sinus tachycardia. This could be due to chronic anemia. Treatment of this condition is to correct underlying problem. 2. History of coronary artery disease status post myocardial infarction. A 12-lead electrocardiogram shows no acute ST-T changes. The patient is asymptomatic at this time. 3. History of cerebrovascular accident. The patient was aspirin and statins. May have to hold on to aspirin until the cause of the GI bleed is clarified. I would like to thank, Dr. Santiago, for courtesy of this consultation. Jorgito Pickering M.D. DR: Shane JOB#: [id number] CC:
[2018-02-20] VITALS: BP 139/65
[2018-02-20 04:00] VITALS: BP 136/69
[2018-02-20] MEDS: NovoLOG Insulin Flexpen SUBQ SCH ×4 (06:30→21:00)
[2018-02-20 08:00] VITALS: BP 119/78
[2018-02-20] MEDS: Losartan 50mg tab ORAL SCH (08:41)
[2018-02-20 09:14] LABS: ANION GAP 8 mmol/L (5-15); BLOOD UREA NITROGEN 10 mg/dL (7-18); CALCIUM 9.1 MG/DL (8.5-10.1); CARBON DIOXIDE 28 MMOL/L (21-32); CHLORIDE 102 MMOL/L (98-107); CREATININE 1.2 MG/DL (0.55-1.30); POTASSIUM 3.6 MMOL/L (3.5-5.1); SODIUM 138 MMOL/L (136-145)
[2018-02-20 09:24] LABS: BASOPHILS % (AUTO) 0.7 % (0.0-2.0); EOSINOPHILS % (AUTO) 6.3 % (0.0-3.0); HEMATOCRIT 34.6 % (42.0-52.0); HEMOGLOBIN 9.1 G/DL (14.2-18.0); LYMPHOCYTES % (AUTO) 23.1 % (20.0-45.0); MEAN CORPUSCULAR VOLUME 64 FL (80-99); MONOCYTES % (AUTO) 13.5 % (1.0-10.0); NEUTROPHILS % (AUTO) 56.4 % (45.0-75.0); PLATELET COUNT 249 K/UL (150-450); RED BLOOD COUNT 5.36 M/UL (4.70-6.10); RED CELL DISTRIBUTION WIDTH 19.1 % (11.6-14.8); WHITE BLOOD COUNT 4.4 K/UL (4.8-10.8)
--- NOTE | 2018-02-20 11:04 | GI Progress Note ---
Assessment/Plan Problems: (1) Encounter for diagnostic endoscopy ICD Codes: Z01.818 - Encounter for other preprocedural examination SNOMED: 861748678, 276734132 (2) Iron deficiency ICD Codes: E61.1 - Iron deficiency SNOMED: 25945071 (3) GI bleed ICD Codes: K92.2 - Gastrointestinal hemorrhage, unspecified SNOMED: 62291589 (4) Hepatitis C ICD Codes: B19.20 - Unspecified viral hepatitis C without hepatic coma SNOMED: 85873451 (5) Anemia ICD Codes: D64.9 - Anemia, unspecified SNOMED: 928383046 Status: stable Status Narrative Discussed with Dr. Watts. Assessment/Plan OB stool positive >> stable H&H s/p SBCE okay for DC per GI standpoint adv diet monitor H&H, prn transfusions bowel regime ppi fu labs fu as outpatient The patient was seen and examined at bedside and all new and available data was reviewed in the patients chart. I agree with the above findings, impression and plan. (Patient seen earlier today. Signature stamp does not reflect patient encounter time.). - Darin Watts MD Subjective Gastrointestinal/Abdominal: Reports: no symptoms Objective Last 24 Hour Vital Signs Date Time Temp Pulse Resp B/P (MAP) Pulse Ox O2 Delivery O2 Flow Rate FiO2 02/20/18 08:41 119/78 02/20/18 08:41 101 119/78 02/20/18 08:00 97.5 101 23 119/78 93 Room Air 97.5 02/20/18 04:00 101 02/20/18 04:00 96.6 100 22 136/69 96 Room Air 96.6 02/20/18 00:00 97.5 105 20 139/65 97 Room Air 97.5 02/20/18 00:00 104 02/19/18 20:00 98.0 104 19 143/79 95 Room Air 98.0 02/19/18 20:00 103 02/19/18 15:59 97.4 103 21 118/81 95 Room Air 97.4 02/19/18 15:21 92 02/19/18 12:00 97.9 89 22 137/87 93 Room Air 97.9 02/19/18 11:53 87 Intake and Output 02/19/18 02/20/18 19:00 07:00 Intake Total 795 ml Balance 795 ml Intake Oral 420 ml IV Total 375 ml # Voids 2 Laboratory Tests Test 02/20/18 07:10 White Blood Count 4.4 K/UL (4.8-10.8) L Red Blood Count 5.36 M/UL (4.70-6.10) Hemoglobin 9.1 G/DL (14.2-18.0) L Hematocrit 34.6 % (42.0-52.0) L Mean Corpuscular Volume 64 FL (80-99) L Mean Corpuscular Hemoglobin 17.1 PG (27.0-31.0) L Mean Corpuscular Hemoglobin Concent 26.4 G/DL (32.0-36.0) L Red Cell Distribution Width 19.1 % (11.6-14.8) H Platelet Count 249 K/UL (150-450) Mean Platelet Volume 7.5 FL (6.5-10.1) Neutrophils (%) (Auto) 56.4 % (45.0-75.0) Lymphocytes (%) (Auto) 23.1 % (20.0-45.0) Monocytes (%) (Auto) 13.5 % (1.0-10.0) H Eosinophils (%) (Auto) 6.3 % (0.0-3.0) H Basophils (%) (Auto) 0.7 % (0.0-2.0) Sodium Level 138 MMOL/L (136-145) Potassium Level 3.6 MMOL/L (3.5-5.1) Chloride Level 102 MMOL/L (98-107) Carbon Dioxide Level 28 MMOL/L (21-32) Anion Gap 8 mmol/L (5-15) Blood Urea Nitrogen 10 mg/dL (7-18) Creatinine 1.2 MG/DL (0.55-1.30) Estimat Glomerular Filtration Rate mL/min (>60) Glucose Level 104 MG/DL (74-106) Calcium Level 9.1 MG/DL (8.5-10.1) Height (Feet): 5 Height (Inches): 8.00 Weight (Pounds): 215 General Appearance: WD/WN, no apparent distress, alert Cardiovascular: normal rate Respiratory/Chest: normal breath sounds, no respiratory distress Abdominal Exam: normal bowel sounds, non tender, soft Extremities: normal range of motion, non-tender Dana Daniel NP February 20, 2018 11:03
--- NOTE | 2018-02-20 11:07 | Infectious Diseases Prog Note ---
Assessment/Plan Assessment/Plan ASSESSMENT: The patient is a 77-year-old male with: Afebrile NL WBC hx of recent Bronchitis/ Pneumonia. Chest x-ray: Interstitial marking of right lung and left lung base associated with bronchial wall thickening. Influenza screening.: Neg HIV Neg Hep C Ab +, Hep C PCR + Hep A/B neg Probable Lung cancer CT: Interval growth of a 5 mm left lower lobe lung nodule compared to 06/16 17. Findings suspicious for metastatic disease. Smoker. Anemia. ? gastrointestinal bleed U S: Coarsened liver echotexture Hypertension Bronchitis Diabetes History of CVA PLAN: monitopr off of AB Rx the patient Monitor CBC. Monitor BMP. Monitor chest x-ray. Monitor cultures (blood and sputum). Hem following GI fup : SP SB capsule endoscopy : result : P out pt Hep C Rx Subjective Allergies: Coded Allergies: No Known Allergies (Unverified , 06/20/14) Subjective Afebrile Objective Vital Signs Last 24 Hour Vital Signs Date Time Temp Pulse Resp B/P (MAP) Pulse Ox O2 Delivery O2 Flow Rate FiO2 02/20/18 08:41 119/78 02/20/18 08:41 101 119/78 02/20/18 08:00 97.5 101 23 119/78 93 Room Air 97.5 02/20/18 04:00 101 02/20/18 04:00 96.6 100 22 136/69 96 Room Air 96.6 02/20/18 00:00 97.5 105 20 139/65 97 Room Air 97.5 02/20/18 00:00 104 02/19/18 20:00 98.0 104 19 143/79 95 Room Air 98.0 02/19/18 20:00 103 02/19/18 15:59 97.4 103 21 118/81 95 Room Air 97.4 02/19/18 15:21 92 02/19/18 12:00 97.9 89 22 137/87 93 Room Air 97.9 02/19/18 11:53 87 Height (Feet): 5 Height (Inches): 8.00 Weight (Pounds): 215 Laboratory Tests Test 02/20/18 07:10 White Blood Count 4.4 K/UL (4.8-10.8) L Red Blood Count 5.36 M/UL (4.70-6.10) Hemoglobin 9.1 G/DL (14.2-18.0) L Hematocrit 34.6 % (42.0-52.0) L Mean Corpuscular Volume 64 FL (80-99) L Mean Corpuscular Hemoglobin 17.1 PG (27.0-31.0) L Mean Corpuscular Hemoglobin Concent 26.4 G/DL (32.0-36.0) L Red Cell Distribution Width 19.1 % (11.6-14.8) H Platelet Count 249 K/UL (150-450) Mean Platelet Volume 7.5 FL (6.5-10.1) Neutrophils (%) (Auto) 56.4 % (45.0-75.0) Lymphocytes (%) (Auto) 23.1 % (20.0-45.0) Monocytes (%) (Auto) 13.5 % (1.0-10.0) H Eosinophils (%) (Auto) 6.3 % (0.0-3.0) H Basophils (%) (Auto) 0.7 % (0.0-2.0) Sodium Level 138 MMOL/L (136-145) Potassium Level 3.6 MMOL/L (3.5-5.1) Chloride Level 102 MMOL/L (98-107) Carbon Dioxide Level 28 MMOL/L (21-32) Anion Gap 8 mmol/L (5-15) Blood Urea Nitrogen 10 mg/dL (7-18) Creatinine 1.2 MG/DL (0.55-1.30) Estimat Glomerular Filtration Rate mL/min (>60) Glucose Level 104 MG/DL (74-106) Calcium Level 9.1 MG/DL (8.5-10.1) Current Medications Medications (Trade) Dose Ordered Sig/Eda Route PRN Reason Start Time Stop Time Status Last Admin Dose Admin Acetaminophen (Tylenol) 650 mg Q4H PRN ORAL T>100.5 02/17/18 18:45 03/19/18 18:44 Al Hydroxide/Mg Hydroxide (Mylanta II) 30 ml Q6H PRN ORAL dyspepsia 02/17/18 18:45 03/19/18 18:44 Amlodipine Besylate (Norvasc) 10 mg DAILY ORAL 02/18/18 09:00 03/20/18 08:59 02/20/18 08:41 Dextrose (Dextrose 50%) 25 ml ONCE PRN IV Hypoglycemia 02/17/18 18:45 03/19/18 18:44 Dextrose (Dextrose 50%) 50 ml ONCE PRN IV hypoglycemia 02/17/18 18:45 03/19/18 18:44 Diphenhydramine HCl (Benadryl) 25 mg Q6H PRN ORAL Itching/Pruritis 02/17/18 18:45 03/19/18 18:44 Insulin Aspart (NovoLOG) BEFORE MEALS AND HS SUBQ 02/17/18 21:00 03/19/18 20:59 02/19/18 20:30 Iopamidol (Isovue-300 100ml) 100 ml NOW PRN INJ Radiology Procedure 02/18/18 12:15 02/20/18 12:05 Iron Sucrose 100 mg/Sodium Chloride 60 ml @ 240 mls/hr BEDTIME IV 02/19/18 21:00 02/23/18 21:14 02/19/18 20:28 Losartan Potassium (Cozaar) 100 mg DAILY ORAL 02/18/18 09:00 03/20/18 08:59 02/20/18 08:41 Nitroglycerin (Ntg) 0.4 mg Q5MIN X 3 DOSES PRN SL Prn Chest Pain 02/17/18 18:45 03/19/18 18:44 Ondansetron HCl (Zofran) 4 mg Q6H PRN IVP Nausea & Vomiting 02/17/18 18:45 03/19/18 18:44 Pantoprazole (Protonix) 40 mg DAILY ORAL 02/18/18 09:00 03/20/18 08:59 02/20/18 08:41 Polyethylene Glycol (Miralax) 17 gm HSPRN PRN ORAL Constipation 02/17/18 21:00 03/19/18 20:59 Temazepam (Restoril) 15 mg HSPRN PRN ORAL Insomnia 02/17/18 21:00 02/24/18 20:59 Jesus Tarango MD February 20, 2018 11:07
[2018-02-20 12:00] VITALS: BP 114/79
--- NOTE | 2018-02-20 12:52 | Pulmonology Progress Note ---
Assessment/Plan Problems: (1) Pulmonary nodule (2) GI bleed (3) Anemia (4) COPD (chronic obstructive pulmonary disease) (5) HTN (hypertension) (6) Diabetes (7) Hepatitis C Assessment/Plan h/h stable gi evaluation IV venofer CT chest reviewed, RUL nodule unchanged renal w/u in progress check electrolytes all notes and meds reviewed. ct reviewed Subjective ROS Limited/Unobtainable: No Interval Events: no new compolains Allergies: Coded Allergies: No Known Allergies (Unverified , 06/20/14) Objective Last 24 Hour Vital Signs Date Time Temp Pulse Resp B/P (MAP) Pulse Ox O2 Delivery O2 Flow Rate FiO2 02/20/18 08:41 119/78 02/20/18 08:41 101 119/78 02/20/18 08:00 97.5 101 23 119/78 93 Room Air 97.5 02/20/18 04:00 101 02/20/18 04:00 96.6 100 22 136/69 96 Room Air 96.6 02/20/18 00:00 97.5 105 20 139/65 97 Room Air 97.5 02/20/18 00:00 104 02/19/18 20:00 98.0 104 19 143/79 95 Room Air 98.0 02/19/18 20:00 103 02/19/18 15:59 97.4 103 21 118/81 95 Room Air 97.4 02/19/18 15:21 92 Intake and Output 02/19/18 02/20/18 19:00 07:00 Intake Total 795 ml Balance 795 ml Intake Oral 420 ml IV Total 375 ml # Voids 2 General Appearance: cachetic HEENT: normocephalic, atraumatic Respiratory/Chest: chest wall non-tender, lungs clear Cardiovascular: normal peripheral pulses, normal rate Abdomen: normal bowel sounds, soft, non tender Genitourinary: normal external genitalia Extremities: no cyanosis Skin: no lesions 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 Lymphatic: no neck adenopathy Laboratory Tests 02/20/18 07:10: White Blood Count 4.4L, Red Blood Count 5.36, Hemoglobin 9.1L, Hematocrit 34.6L , Mean Corpuscular Volume 64L, Mean Corpuscular Hemoglobin 17.1L, Mean Corpuscular Hemoglobin Concent 26.4L, Red Cell Distribution Width 19.1H, Platelet Count 249, Mean Platelet Volume 7.5, Neutrophils (%) (Auto) 56.4, Lymphocytes (%) (Auto) 23.1, Monocytes (%) (Auto) 13.5H, Eosinophils (%) (Auto) 6.3H, Basophils (%) (Auto) 0.7, Sodium Level 138, Potassium Level 3.6, Chloride Level 102, Carbon Dioxide Level 28, Anion Gap 8, Blood Urea Nitrogen 10, Creatinine 1.2, Estimat Glomerular Filtration Rate , Glucose Level 104, Calcium Level 9.1 Current Medications Medications (Trade) Dose Ordered Sig/Eda Route PRN Reason Start Time Stop Time Status Last Admin Dose Admin Acetaminophen (Tylenol) 650 mg Q4H PRN ORAL T>100.5 02/17/18 18:45 03/19/18 18:44 Al Hydroxide/Mg Hydroxide (Mylanta II) 30 ml Q6H PRN ORAL dyspepsia 02/17/18 18:45 03/19/18 18:44 Amlodipine Besylate (Norvasc) 10 mg DAILY ORAL 02/18/18 09:00 03/20/18 08:59 02/20/18 08:41 Dextrose (Dextrose 50%) 25 ml ONCE PRN IV Hypoglycemia 02/17/18 18:45 03/19/18 18:44 Dextrose (Dextrose 50%) 50 ml ONCE PRN IV hypoglycemia 02/17/18 18:45 03/19/18 18:44 Diphenhydramine HCl (Benadryl) 25 mg Q6H PRN ORAL Itching/Pruritis 02/17/18 18:45 03/19/18 18:44 Insulin Aspart (NovoLOG) BEFORE MEALS AND HS SUBQ 02/17/18 21:00 03/19/18 20:59 02/19/18 20:30 Iron Sucrose 100 mg/Sodium Chloride 60 ml @ 240 mls/hr BEDTIME IV 02/19/18 21:00 02/23/18 21:14 02/19/18 20:28 Losartan Potassium (Cozaar) 100 mg DAILY ORAL 02/18/18 09:00 03/20/18 08:59 02/20/18 08:41 Nitroglycerin (Ntg) 0.4 mg Q5MIN X 3 DOSES PRN SL Prn Chest Pain 02/17/18 18:45 03/19/18 18:44 Ondansetron HCl (Zofran) 4 mg Q6H PRN IVP Nausea & Vomiting 02/17/18 18:45 03/19/18 18:44 Pantoprazole (Protonix) 40 mg DAILY ORAL 02/18/18 09:00 03/20/18 08:59 02/20/18 08:41 Polyethylene Glycol (Miralax) 17 gm HSPRN PRN ORAL Constipation 02/17/18 21:00 03/19/18 20:59 Temazepam (Restoril) 15 mg HSPRN PRN ORAL Insomnia 02/17/18 21:00 02/24/18 20:59 Balta Luna MD February 20, 2018 12:52
--- NOTE | 2018-02-20 13:27 | General Progress Note ---
Assessment/Plan Assessment/Plan #. SEVERE Anemia due to iron deficiency (ferritin of 5, TIBC of 545, %sat is just 4!) -- underlying gi bleed is most likely cultprit --> has been started on venofer x 5 days --> gi eval with potential capsule endos --> outpatient po ferrous sulfate #. Pulmonary lung nodules, 5 mm on the left side, have reviewed new CT scan and is unchanged, therefore can be monitored with ct in 6 mo --> likely post-inflammatory in etiology #. Renal mass also appears unchanged, urology outpatient eval #. Diabetes mellitus. Blood sugar goal less than 120, goal between 80 and 120. #. Lightheadedness, potentially secondary to underlying anemia. #. Hypertension, systolic blood pressure goal less than 140. Subjective Constitutional: Denies: no symptoms, chills, diaphoresis, fever, malaise, weakness, other HEENT: Denies: no symptoms, eye pain, blurred vision, tearing, double vision, ear pain, ear discharge, nose pain, nose congestion, throat pain, throat swelling, mouth pain, mouth swelling, other Cardiovascular: Denies: no symptoms, chest pain, edema, irregular heart rate, lightheadedness, palpitations, syncope, other Respiratory: Denies: no symptoms, cough, orthopnea, shortness of breath, SOB with excertion, SOB at rest, sputum, stridor, wheezing, other Gastrointestinal/Abdominal: Denies: no symptoms, abdomen distended, abdominal pain, black stools, tarry stools, blood in stool, constipated, diarrhea, difficulty swallowing, nausea, poor appetite, poor fluid intake, rectal bleeding , vomiting, other Genitourinary: Denies: no symptoms, burning, discharge, frequency, flank pain, hematuria, incontinence, pain, urgency, other Neurologic/Psychiatric: Denies: no symptoms, anxiety, depressed, emotional problems, headache, numbness, paresthesia, pre-existing deficit, seizure, tingling, tremors, weakness, other Endocrine: Denies: no symptoms, excessive sweating, flushing, intolerance to cold, intolerance to heat, increased hunger, increased thirst, increased urine, unexplained weight gain, unexplained weight loss, other Hematologic/Lymphatic: Denies: no symptoms, anemia, easy bleeding, easy bruising, other Allergies: Coded Allergies: No Known Allergies (Unverified , 06/20/14) Subjective gi to eval further, no complaints, on iv iron Objective Last 24 Hour Vital Signs Date Time Temp Pulse Resp B/P (MAP) Pulse Ox O2 Delivery O2 Flow Rate FiO2 02/20/18 12:00 97.7 93 21 114/79 96 Room Air 97.7 02/20/18 12:00 110 02/20/18 08:41 119/78 02/20/18 08:41 101 119/78 02/20/18 08:00 96 02/20/18 08:00 97.5 101 23 119/78 93 Room Air 97.5 02/20/18 04:00 101 02/20/18 04:00 96.6 100 22 136/69 96 Room Air 96.6 02/20/18 00:00 97.5 105 20 139/65 97 Room Air 97.5 02/20/18 00:00 104 02/19/18 20:00 98.0 104 19 143/79 95 Room Air 98.0 02/19/18 20:00 103 02/19/18 15:59 97.4 103 21 118/81 95 Room Air 97.4 02/19/18 15:21 92 Intake and Output 02/19/18 02/20/18 19:00 07:00 Intake Total 795 ml Balance 795 ml Intake Oral 420 ml IV Total 375 ml # Voids 2 Laboratory Tests 02/20/18 07:10: White Blood Count 4.4L, Red Blood Count 5.36, Hemoglobin 9.1L, Hematocrit 34.6L , Mean Corpuscular Volume 64L, Mean Corpuscular Hemoglobin 17.1L, Mean Corpuscular Hemoglobin Concent 26.4L, Red Cell Distribution Width 19.1H, Platelet Count 249, Mean Platelet Volume 7.5, Neutrophils (%) (Auto) 56.4, Lymphocytes (%) (Auto) 23.1, Monocytes (%) (Auto) 13.5H, Eosinophils (%) (Auto) 6.3H, Basophils (%) (Auto) 0.7, Sodium Level 138, Potassium Level 3.6, Chloride Level 102, Carbon Dioxide Level 28, Anion Gap 8, Blood Urea Nitrogen 10, Creatinine 1.2, Estimat Glomerular Filtration Rate , Glucose Level 104, Calcium Level 9.1 Height (Feet): 5 Height (Inches): 8.00 Weight (Pounds): 215 General Appearance: alert EENT: normal ENT inspection Neck: supple Cardiovascular: normal rate Respiratory/Chest: normal breath sounds Abdomen: soft Extremities: non-tender Edema: 1+ Leg (L), 1+ Leg (R) Edema: mild edema Neurologic: alert Houston Fountain MD February 20, 2018 13:27
--- NOTE | 2018-02-20 15:16 | Nephrology Progress Note ---
Assessment/Plan Assessment 1. Hypokalemia, 2. Rule out diabetic nephropathy. 3. Gastrointestinal bleeding. 4. Hypertension, well controlled. 5. Diabetes. 6. Dyslipidemia. 7. History of cerebrovascular accident. 8. History of transient ischemic attack. Plan PLAN iv Venofer replace electrolyte as need ivf monitoring out put avoid NSAID continue with current anti hypertensive meds Subjective Subjective no new complaints dines any abd pain ,nausea or vomiting Objective Objective Last 24 Hour Vital Signs Date Time Temp Pulse Resp B/P (MAP) Pulse Ox O2 Delivery O2 Flow Rate FiO2 02/20/18 12:00 97.7 93 21 114/79 96 Room Air 97.7 02/20/18 12:00 110 02/20/18 08:41 119/78 02/20/18 08:41 101 119/78 02/20/18 08:00 96 02/20/18 08:00 97.5 101 23 119/78 93 Room Air 97.5 02/20/18 04:00 101 02/20/18 04:00 96.6 100 22 136/69 96 Room Air 96.6 02/20/18 00:00 97.5 105 20 139/65 97 Room Air 97.5 02/20/18 00:00 104 02/19/18 20:00 98.0 104 19 143/79 95 Room Air 98.0 02/19/18 20:00 103 02/19/18 15:59 97.4 103 21 118/81 95 Room Air 97.4 02/19/18 15:21 92 Intake and Output 02/19/18 02/20/18 19:00 07:00 Intake Total 795 ml Balance 795 ml Intake Oral 420 ml IV Total 375 ml # Voids 2 Laboratory Tests 02/20/18 07:10: White Blood Count 4.4L, Red Blood Count 5.36, Hemoglobin 9.1L, Hematocrit 34.6L , Mean Corpuscular Volume 64L, Mean Corpuscular Hemoglobin 17.1L, Mean Corpuscular Hemoglobin Concent 26.4L, Red Cell Distribution Width 19.1H, Platelet Count 249, Mean Platelet Volume 7.5, Neutrophils (%) (Auto) 56.4, Lymphocytes (%) (Auto) 23.1, Monocytes (%) (Auto) 13.5H, Eosinophils (%) (Auto) 6.3H, Basophils (%) (Auto) 0.7, Sodium Level 138, Potassium Level 3.6, Chloride Level 102, Carbon Dioxide Level 28, Anion Gap 8, Blood Urea Nitrogen 10, Creatinine 1.2, Estimat Glomerular Filtration Rate , Glucose Level 104, Calcium Level 9.1 Height (Feet): 5 Height (Inches): 8.00 Weight (Pounds): 215 Objective HEAD AND NECK: No JVP. No LAD. No thyromegaly. Extraocular movements are intact. Pupils are reactive to light and accommodation. LUNGS: CTA CARDIAC: Regular rate and rhythm. S1 and S2. No murmur. No rub. ABDOMEN: Soft, nontender, and nondistended. EXTREMITIES: No edema. No clubbing. No cyanosis. NEUROLOGIC: Cranial nerves II through XII within normal limits. Upper and lower extremities are grossly intact. Sharri Munoz MD February 20, 2018 15:16
--- NOTE | 2018-02-20 15:35 | General Progress Note ---
Assessment/Plan Problem List: (1) Anemia ICD Codes: D64.9 - Anemia, unspecified SNOMED: 335226834 (2) UTI (urinary tract infection) ICD Codes: N39.0 - Urinary tract infection, site not specified SNOMED: 57451285 (3) COPD (chronic obstructive pulmonary disease) ICD Codes: J44.9 - Chronic obstructive pulmonary disease, unspecified SNOMED: 32204189 (4) HTN (hypertension) ICD Codes: I10 - Essential (primary) hypertension SNOMED: 23746212 (5) Hepatitis C ICD Codes: B19.20 - Unspecified viral hepatitis C without hepatic coma SNOMED: 16440988 (6) Diabetes ICD Codes: E11.9 - Type 2 diabetes mellitus without complications SNOMED: 89889022 (7) Renal insufficiency ICD Codes: N28.9 - Disorder of kidney and ureter, unspecified SNOMED: 888076303 (8) Rapid atrial fibrillation ICD Codes: I48.91 - Unspecified atrial fibrillation SNOMED: 617165992 Status: stable, progressing Assessment/Plan o2 pulm tx abx ot pt diet cbc bmp am dc plan w hh Subjective Constitutional: Reports: weakness Allergies: Coded Allergies: No Known Allergies (Unverified , 06/20/14) All Systems: reviewed and negative except above Subjective sleepy calm Objective Last 24 Hour Vital Signs Date Time Temp Pulse Resp B/P (MAP) Pulse Ox O2 Delivery O2 Flow Rate FiO2 02/20/18 12:00 97.7 93 21 114/79 96 Room Air 97.7 02/20/18 12:00 110 02/20/18 08:41 119/78 02/20/18 08:41 101 119/78 02/20/18 08:00 96 02/20/18 08:00 97.5 101 23 119/78 93 Room Air 97.5 02/20/18 04:00 101 02/20/18 04:00 96.6 100 22 136/69 96 Room Air 96.6 02/20/18 00:00 97.5 105 20 139/65 97 Room Air 97.5 02/20/18 00:00 104 02/19/18 20:00 98.0 104 19 143/79 95 Room Air 98.0 02/19/18 20:00 103 02/19/18 15:59 97.4 103 21 118/81 95 Room Air 97.4 Intake and Output 02/19/18 02/20/18 19:00 07:00 Intake Total 795 ml Balance 795 ml Intake Oral 420 ml IV Total 375 ml # Voids 2 Laboratory Tests 02/20/18 07:10: White Blood Count 4.4L, Red Blood Count 5.36, Hemoglobin 9.1L, Hematocrit 34.6L , Mean Corpuscular Volume 64L, Mean Corpuscular Hemoglobin 17.1L, Mean Corpuscular Hemoglobin Concent 26.4L, Red Cell Distribution Width 19.1H, Platelet Count 249, Mean Platelet Volume 7.5, Neutrophils (%) (Auto) 56.4, Lymphocytes (%) (Auto) 23.1, Monocytes (%) (Auto) 13.5H, Eosinophils (%) (Auto) 6.3H, Basophils (%) (Auto) 0.7, Sodium Level 138, Potassium Level 3.6, Chloride Level 102, Carbon Dioxide Level 28, Anion Gap 8, Blood Urea Nitrogen 10, Creatinine 1.2, Estimat Glomerular Filtration Rate , Glucose Level 104, Calcium Level 9.1 Height (Feet): 5 Height (Inches): 8.00 Weight (Pounds): 215 General Appearance: lethargic EENT: normal ENT inspection Neck: normal alignment Cardiovascular: normal peripheral pulses, normal rate, regular rhythm Respiratory/Chest: chest wall non-tender, lungs clear, normal breath sounds Abdomen: normal bowel sounds, non tender, soft Extremities: normal inspection Edema: no edema noted Arm (L), no edema noted Arm (R), no edema noted Leg (L), no edema noted Leg (R), no edema noted Pedal (L), no edema noted Pedal (R), no edema noted Generalized Neurologic: motor weakness Skin: normal pigmentation, warm/dry Bry Santiago DO February 20, 2018 15:35
[2018-02-20 16:00] VITALS: BP 138/78
--- NOTE | 2018-02-20 16:18 | Cardiology Progress Note ---
Assessment/Plan Assessment/Plan 1. Sinus tachycardia, better, could be due to chronic anemia. Treatment of this condition is to correct underlying problem. 2. History of coronary artery disease status post myocardial infarction. A 12- lead electrocardiogram shows no acute ST-T changes. The patient is asymptomatic at this time. Stress test in 2013 revealed no ischemia. 3. History of cerebrovascular accident. The patient was aspirin and statins. Subjective Subjective Sinus rhythm at 92. Objective Last 24 Hour Vital Signs Date Time Temp Pulse Resp B/P (MAP) Pulse Ox O2 Delivery O2 Flow Rate FiO2 02/20/18 12:00 97.7 93 21 114/79 96 Room Air 97.7 02/20/18 12:00 110 02/20/18 08:41 119/78 02/20/18 08:41 101 119/78 02/20/18 08:00 96 02/20/18 08:00 97.5 101 23 119/78 93 Room Air 97.5 02/20/18 04:00 101 02/20/18 04:00 96.6 100 22 136/69 96 Room Air 96.6 02/20/18 00:00 97.5 105 20 139/65 97 Room Air 97.5 02/20/18 00:00 104 02/19/18 20:00 98.0 104 19 143/79 95 Room Air 98.0 02/19/18 20:00 103 02/19/18 15:59 97.4 103 21 118/81 95 Room Air 97.4 Intake and Output 02/19/18 02/20/18 19:00 07:00 Intake Total 795 ml Balance 795 ml Intake Oral 420 ml IV Total 375 ml # Voids 2 Laboratory Tests Test 02/20/18 07:10 White Blood Count 4.4 K/UL (4.8-10.8) L Red Blood Count 5.36 M/UL (4.70-6.10) Hemoglobin 9.1 G/DL (14.2-18.0) L Hematocrit 34.6 % (42.0-52.0) L Mean Corpuscular Volume 64 FL (80-99) L Mean Corpuscular Hemoglobin 17.1 PG (27.0-31.0) L Mean Corpuscular Hemoglobin Concent 26.4 G/DL (32.0-36.0) L Red Cell Distribution Width 19.1 % (11.6-14.8) H Platelet Count 249 K/UL (150-450) Mean Platelet Volume 7.5 FL (6.5-10.1) Neutrophils (%) (Auto) 56.4 % (45.0-75.0) Lymphocytes (%) (Auto) 23.1 % (20.0-45.0) Monocytes (%) (Auto) 13.5 % (1.0-10.0) H Eosinophils (%) (Auto) 6.3 % (0.0-3.0) H Basophils (%) (Auto) 0.7 % (0.0-2.0) Sodium Level 138 MMOL/L (136-145) Potassium Level 3.6 MMOL/L (3.5-5.1) Chloride Level 102 MMOL/L (98-107) Carbon Dioxide Level 28 MMOL/L (21-32) Anion Gap 8 mmol/L (5-15) Blood Urea Nitrogen 10 mg/dL (7-18) Creatinine 1.2 MG/DL (0.55-1.30) Estimat Glomerular Filtration Rate mL/min (>60) Glucose Level 104 MG/DL (74-106) Calcium Level 9.1 MG/DL (8.5-10.1) Objective HEENT: Atraumatic and normocephalic. Anicteric. Pupils are equal, round, reactive to light and accommodation. Extraocular muscles intact. NECK: JVP less than 5 cm. No carotid bruit. Carotid upstrokes 2+ bilaterally. CARDIOVASCULAR: Normal S1 and S2. Regular rate and rhythm. No murmurs, gallops, or rubs. PMI is at fourth intercostal space in the midclavicular line. LUNGS: Diminished breath sounds in both lungs. ABDOMEN: Soft, nontender, nondistended. No hepatosplenomegaly. Positive bowel sounds. EXTREMITIES: No evidence of edema, clubbing, or cyanosis. Jorgito Pickering MD February 20, 2018 16:18
[2018-02-20 20:00] VITALS: BP 119/75
[2018-02-20] MEDS: Iron Sucrose 100 MG in NS 55 ML IV SCH (21:02)
[2018-02-21] VITALS: BP 117/71
[2018-02-21 04:00] VITALS: BP 131/67
[2018-02-21] MEDS: NovoLOG Insulin Flexpen SUBQ SCH ×2 (06:06→11:54)
--- NOTE | 2018-02-21 07:18 | Pulmonology Progress Note ---
Assessment/Plan Assessment/Plan ASSESSMENT Severe anemia, iron deficiency Probable GI bleeding s/p SBCE Right upper lobe lung nodule, unchanged Bronchitis Coronary artery disease with history of VA, asymptomatic History of CVA Hypertension Diabetes Right renal mass, unchanged Hepatitis C PLAN OF CARE Tele H&H with small trend down GI follows anemia workup consistent with anemia of iron deficiency on IV Venofer, oral iron upon discharge stool OB positive close monitoring of hemoglobin and hematocrit with goal to keep hemoglobin above 8 bowel regimen PPI GI follwos, s/p SBCE, CT chest noted Optomechanical Technician follows right renal mass unchanged, consider outpatient follow-up with a urologist Right upper lobe nodule, no change from previous Repeat CT chest in 6 months, probably inflammatory in nature, but increased risk due to hx of smoking Supplemental oxygen , pulmonary toilet as needed encouraged to continue abstinence from smoking no evidence of infection, off antibiotics as per ID closely observe, no fever no leukocytosis Venous duplex bilateral lower extremity negative Blood pressure management with calcium channel nickie and ARB stable, optimize as needed Blood sugar management with sliding scale insulin Supervisor Assembly follows, no cardiac complaints, asymptomatic No aspirin for now, due to anemia and possible GI bleeding PT/OT case discussed and evaluated by supervising physician Subjective Allergies: Coded Allergies: No Known Allergies (Unverified , 06/20/14) Subjective denies chest pain, + intermittent SOB s/p SBCE HH with small trend down\ still tachy 100-110v Objective Last 24 Hour Vital Signs Date Time Temp Pulse Resp B/P (MAP) Pulse Ox O2 Delivery O2 Flow Rate FiO2 02/21/18 04:00 96 02/21/18 04:00 98.1 93 20 131/67 94 Room Air 98.1 02/21/18 00:00 98.2 96 20 117/71 93 Room Air 98.2 02/21/18 00:00 101 02/20/18 20:00 87 02/20/18 20:00 98.0 95 20 119/75 96 Room Air 98.0 02/20/18 16:00 97.4 95 21 138/78 95 Room Air 97.4 02/20/18 16:00 87 02/20/18 12:00 97.7 93 21 114/79 96 Room Air 97.7 02/20/18 12:00 110 02/20/18 08:41 119/78 02/20/18 08:41 101 119/78 02/20/18 08:00 96 02/20/18 08:00 97.5 101 23 119/78 93 Room Air 97.5 Intake and Output 02/20/18 02/21/18 19:00 07:00 Intake Total 660 ml Balance 660 ml Intake Oral 660 ml # Voids 4 3 General Appearance: no acute distress HEENT: normocephalic, atraumatic, anicteric, mucous membranes moist, EOMI, no JVD Respiratory/Chest: chest wall non-tender, no respiratory distress, no accessory muscle use, decreased breath sounds Cardiovascular: regular rhythm - ST on tele, HR 100-110, tachycardia Abdomen: normal bowel sounds, soft, non tender Extremities: no edema, pedal pulses normal Neurologic/Psychiatric: no motor/sensory deficits, alert, oriented x 3, responsive Musculoskeletal: normal muscle bulk Current Medications Medications (Trade) Dose Ordered Sig/Eda Route PRN Reason Start Time Stop Time Status Last Admin Dose Admin Acetaminophen (Tylenol) 650 mg Q4H PRN ORAL T>100.5 02/17/18 18:45 03/19/18 18:44 Al Hydroxide/Mg Hydroxide (Mylanta II) 30 ml Q6H PRN ORAL dyspepsia 02/17/18 18:45 03/19/18 18:44 Amlodipine Besylate (Norvasc) 10 mg DAILY ORAL 02/18/18 09:00 03/20/18 08:59 02/20/18 08:41 Dextrose (Dextrose 50%) 25 ml ONCE PRN IV Hypoglycemia 02/17/18 18:45 03/19/18 18:44 Dextrose (Dextrose 50%) 50 ml ONCE PRN IV hypoglycemia 02/17/18 18:45 03/19/18 18:44 Diphenhydramine HCl (Benadryl) 25 mg Q6H PRN ORAL Itching/Pruritis 02/17/18 18:45 03/19/18 18:44 Insulin Aspart (NovoLOG) BEFORE MEALS AND HS SUBQ 02/17/18 21:00 03/19/18 20:59 02/20/18 21:00 Iron Sucrose 100 mg/Sodium Chloride 60 ml @ 240 mls/hr BEDTIME IV 02/19/18 21:00 02/23/18 21:14 02/20/18 21:02 Losartan Potassium (Cozaar) 100 mg DAILY ORAL 02/18/18 09:00 6/15/18 08:59 02/20/18 08:41 Nitroglycerin (Ntg) 0.4 mg Q5MIN X 3 DOSES PRN SL Prn Chest Pain 02/17/18 18:45 03/19/18 18:44 Ondansetron HCl (Zofran) 4 mg Q6H PRN IVP Nausea & Vomiting 02/17/18 18:45 03/19/18 18:44 Pantoprazole (Protonix) 40 mg DAILY ORAL 02/18/18 09:00 03/20/18 08:59 02/20/18 08:41 Polyethylene Glycol (Miralax) 17 gm HSPRN PRN ORAL Constipation 02/17/18 21:00 03/19/18 20:59 Temazepam (Restoril) 15 mg HSPRN PRN ORAL Insomnia 02/17/18 21:00 02/24/18 20:59 Gloria Villalobos NP February 21, 2018 07:18
[2018-02-21 08:00] VITALS: BP 117/73
[2018-02-21 08:21] LABS: HEMATOCRIT 31.3 % (42.0-52.0); HEMOGLOBIN 8.8 G/DL (14.2-18.0); MEAN CORPUSCULAR VOLUME 64 FL (80-99); PLATELET COUNT 240 K/UL (150-450); RED BLOOD COUNT 4.91 M/UL (4.70-6.10); RED CELL DISTRIBUTION WIDTH 18.5 % (11.6-14.8); WHITE BLOOD COUNT 5.2 K/UL (4.8-10.8)
--- NOTE | 2018-02-21 08:30 | General Progress Note ---
Assessment/Plan Problem List: (1) Anemia ICD Codes: D64.9 - Anemia, unspecified SNOMED: 553382113 (2) Hepatitis C ICD Codes: B19.20 - Unspecified viral hepatitis C without hepatic coma SNOMED: 41301184 (3) Diabetes ICD Codes: E11.9 - Type 2 diabetes mellitus without complications SNOMED: 04928151 (4) HTN (hypertension) ICD Codes: I10 - Essential (primary) hypertension SNOMED: 64457231 (5) GI bleed ICD Codes: K92.2 - Gastrointestinal hemorrhage, unspecified SNOMED: 97985208 (6) Iron deficiency ICD Codes: E61.1 - Iron deficiency SNOMED: 74707640 Assessment/Plan OB stool positive >> stable H&H s/p SBCE okay for DC per GI standpoint adv diet monitor H&H, prn transfusions bowel regime ppi fu labs fu as outpatient Subjective ROS Limited/Unobtainable: Yes Allergies: Coded Allergies: No Known Allergies (Unverified , 06/20/14) Subjective no event over night Objective Last 24 Hour Vital Signs Date Time Temp Pulse Resp B/P (MAP) Pulse Ox O2 Delivery O2 Flow Rate FiO2 02/21/18 04:00 96 02/21/18 04:00 98.1 93 20 131/67 94 Room Air 98.1 02/21/18 00:00 98.2 96 20 117/71 93 Room Air 98.2 02/21/18 00:00 101 02/20/18 20:00 87 02/20/18 20:00 98.0 95 20 119/75 96 Room Air 98.0 02/20/18 16:00 97.4 95 21 138/78 95 Room Air 97.4 02/20/18 16:00 87 02/20/18 12:00 97.7 93 21 114/79 96 Room Air 97.7 02/20/18 12:00 110 02/20/18 08:41 119/78 02/20/18 08:41 101 119/78 Intake and Output 02/20/18 02/21/18 19:00 07:00 Intake Total 660 ml Balance 660 ml Intake Oral 660 ml # Voids 4 3 Laboratory Tests 02/21/18 07:30: White Blood Count 5.2, Red Blood Count 4.91, Hemoglobin 8.8L, Hematocrit 31.3L, Mean Corpuscular Volume 64L, Mean Corpuscular Hemoglobin 17.9L, Mean Corpuscular Hemoglobin Concent 28.0L, Red Cell Distribution Width 18.5H, Platelet Count 240, Mean Platelet Volume 9.7, Neutrophils (%) (Auto) , Lymphocytes (%) (Auto) , Monocytes (%) (Auto) , Eosinophils (%) (Auto) , Basophils (%) (Auto) , Neutrophils % (Manual) [Pending], Lymphocytes % (Manual) [Pending], Platelet Estimate [Pending], Platelet Morphology [Pending], Sodium Level [Pending], Potassium Level [Pending], Chloride Level [Pending], Carbon Dioxide Level [Pending], Blood Urea Nitrogen [Pending], Creatinine [Pending], Estimat Glomerular Filtration Rate [Pending], Glucose Level [Pending], Calcium Level [Pending] Height (Feet): 5 Height (Inches): 8.00 Weight (Pounds): 215 General Appearance: alert EENT: normal ENT inspection Neck: supple Cardiovascular: normal rate Respiratory/Chest: decreased breath sounds Abdomen: non tender, soft Extremities: non-tender Darin Watts MD February 21, 2018 08:30
[2018-02-21 08:43] LABS: ANION GAP 10 mmol/L (5-15); BLOOD UREA NITROGEN 13 mg/dL (7-18); CALCIUM 9.1 MG/DL (8.5-10.1); CARBON DIOXIDE 26 MMOL/L (21-32); CHLORIDE 103 MMOL/L (98-107); CREATININE 1.2 MG/DL (0.55-1.30); POTASSIUM 3.8 MMOL/L (3.5-5.1); SODIUM 138 MMOL/L (136-145)
[2018-02-21] MEDS: Losartan 50mg tab ORAL SCH (09:00)
[2018-02-21] MEDS ORDERED: Albuterol/Ipratropium 3ml neb HHN PRN (10:15)
--- NOTE | 2018-02-21 11:02 | General Progress Note ---
Assessment/Plan Problem List: (1) Anemia ICD Codes: D64.9 - Anemia, unspecified SNOMED: 713651729 (2) UTI (urinary tract infection) ICD Codes: N39.0 - Urinary tract infection, site not specified SNOMED: 60618723 (3) COPD (chronic obstructive pulmonary disease) ICD Codes: J44.9 - Chronic obstructive pulmonary disease, unspecified SNOMED: 42126945 (4) HTN (hypertension) ICD Codes: I10 - Essential (primary) hypertension SNOMED: 95227073 (5) Hepatitis C ICD Codes: B19.20 - Unspecified viral hepatitis C without hepatic coma SNOMED: 04203817 (6) Diabetes ICD Codes: E11.9 - Type 2 diabetes mellitus without complications SNOMED: 41505446 (7) Renal insufficiency ICD Codes: N28.9 - Disorder of kidney and ureter, unspecified SNOMED: 388853707 (8) Rapid atrial fibrillation ICD Codes: I48.91 - Unspecified atrial fibrillation SNOMED: 929794411 Status: stable, progressing, tolerating diet Assessment/Plan o2 pulm tx abx ot pt diet cbc bmp am dc w hh if clear Subjective Constitutional: Reports: weakness Allergies: Coded Allergies: No Known Allergies (Unverified , 06/20/14) All Systems: reviewed and negative except above Subjective sleepy calm Objective Last 24 Hour Vital Signs Date Time Temp Pulse Resp B/P (MAP) Pulse Ox O2 Delivery O2 Flow Rate FiO2 02/21/18 09:00 117/73 02/21/18 09:00 102 117/73 02/21/18 08:00 97.7 102 18 117/73 95 Room Air 97.7 02/21/18 08:00 110 02/21/18 04:00 96 02/21/18 04:00 98.1 93 20 131/67 94 Room Air 98.1 02/21/18 00:00 98.2 96 20 117/71 93 Room Air 98.2 02/21/18 00:00 101 02/20/18 20:00 87 02/20/18 20:00 98.0 95 20 119/75 96 Room Air 98.0 02/20/18 16:00 97.4 95 21 138/78 95 Room Air 97.4 02/20/18 16:00 87 02/20/18 12:00 97.7 93 21 114/79 96 Room Air 97.7 02/20/18 12:00 110 Intake and Output 02/20/18 02/21/18 19:00 07:00 Intake Total 660 ml Balance 660 ml Intake Oral 660 ml # Voids 4 3 Laboratory Tests 02/21/18 07:30: White Blood Count 5.2, Red Blood Count 4.91, Hemoglobin 8.8L, Hematocrit 31.3L, Mean Corpuscular Volume 64L, Mean Corpuscular Hemoglobin 17.9L, Mean Corpuscular Hemoglobin Concent 28.0L, Red Cell Distribution Width 18.5H, Platelet Count 240, Mean Platelet Volume 9.7, Neutrophils (%) (Auto) , Lymphocytes (%) (Auto) , Monocytes (%) (Auto) , Eosinophils (%) (Auto) , Basophils (%) (Auto) , Differential Total Cells Counted 100, Neutrophils % ( Manual) 60, Lymphocytes % (Manual) 27, Monocytes % (Manual) 7, Eosinophils % ( Manual) 6H, Basophils % (Manual) 0, Band Neutrophils 0, Platelet Estimate Adequate, Platelet Morphology Normal, Hypochromasia 1+, Anisocytosis 1+, Microcytosis 2+, Tear Drop Cells Occasional, Schistocytes Occasional, Sodium Level 138, Potassium Level 3.8, Chloride Level 103, Carbon Dioxide Level 26, Anion Gap 10, Blood Urea Nitrogen 13, Creatinine 1.2, Estimat Glomerular Filtration Rate , Glucose Level 115H, Calcium Level 9.1 Height (Feet): 5 Height (Inches): 8.00 Weight (Pounds): 215 General Appearance: alert EENT: normal ENT inspection Neck: normal alignment Cardiovascular: normal peripheral pulses, normal rate, regular rhythm Respiratory/Chest: chest wall non-tender, decreased breath sounds Abdomen: normal bowel sounds, non tender, soft Extremities: normal inspection Edema: no edema noted Arm (L), no edema noted Arm (R), no edema noted Leg (L), no edema noted Leg (R), no edema noted Pedal (L), no edema noted Pedal (R), no edema noted Generalized Neurologic: responsive, motor weakness Skin: normal pigmentation, warm/dry Bry Santiago DO February 21, 2018 11:01
[2018-02-21 12:00] VITALS: BP 149/86
--- NOTE | 2018-02-21 14:08 | Infectious Diseases Prog Note ---
Assessment/Plan Assessment/Plan ASSESSMENT: The patient is a 77-year-old male with: Afebrile NL WBC hx of recent Bronchitis/ Pneumonia. Chest x-ray: Interstitial marking of right lung and left lung base associated with bronchial wall thickening. Influenza screening.: Neg HIV Neg Hep C Ab +, Hep C PCR + Hep A/B neg Probable Lung cancer CT: Interval growth of a 5 mm left lower lobe lung nodule compared to 06/16 17. Findings suspicious for metastatic disease. Smoker. Anemia. ? gastrointestinal bleed U S: Coarsened liver echotexture Hypertension Bronchitis Diabetes History of CVA PLAN: monitopr off of AB Rx the patient Monitor CBC. Monitor BMP. Monitor chest x-ray. Monitor cultures (blood and sputum). Hem following GI fup : SP SB capsule endoscopy : result : P out pt Hep C Rx Subjective Allergies: Coded Allergies: No Known Allergies (Unverified , 06/20/14) Subjective no new complain Objective Vital Signs Last 24 Hour Vital Signs Date Time Temp Pulse Resp B/P (MAP) Pulse Ox O2 Delivery O2 Flow Rate FiO2 02/21/18 12:00 86 02/21/18 12:00 97.9 90 20 149/86 95 Room Air 97.9 02/21/18 09:00 117/73 02/21/18 09:00 102 117/73 02/21/18 08:00 97.7 102 18 117/73 95 Room Air 97.7 02/21/18 08:00 110 02/21/18 04:00 96 02/21/18 04:00 98.1 93 20 131/67 94 Room Air 98.1 02/21/18 00:00 98.2 96 20 117/71 93 Room Air 98.2 02/21/18 00:00 101 02/20/18 20:00 87 02/20/18 20:00 98.0 95 20 119/75 96 Room Air 98.0 02/20/18 16:00 97.4 95 21 138/78 95 Room Air 97.4 02/20/18 16:00 87 Height (Feet): 5 Height (Inches): 8.00 Weight (Pounds): 215 HEENT: anicteric Respiratory/Chest: no respiratory distress Cardiovascular: regularly irregular Abdomen: no mass Laboratory Tests Test 02/21/18 07:30 White Blood Count 5.2 K/UL (4.8-10.8) Red Blood Count 4.91 M/UL (4.70-6.10) Hemoglobin 8.8 G/DL (14.2-18.0) L Hematocrit 31.3 % (42.0-52.0) L Mean Corpuscular Volume 64 FL (80-99) L Mean Corpuscular Hemoglobin 17.9 PG (27.0-31.0) L Mean Corpuscular Hemoglobin Concent 28.0 G/DL (32.0-36.0) L Red Cell Distribution Width 18.5 % (11.6-14.8) H Platelet Count 240 K/UL (150-450) Mean Platelet Volume 9.7 FL (6.5-10.1) Neutrophils (%) (Auto) % (45.0-75.0) Lymphocytes (%) (Auto) % (20.0-45.0) Monocytes (%) (Auto) % (1.0-10.0) Eosinophils (%) (Auto) % (0.0-3.0) Basophils (%) (Auto) % (0.0-2.0) Differential Total Cells Counted 100 Neutrophils % (Manual) 60 % (45-75) Lymphocytes % (Manual) 27 % (20-45) Monocytes % (Manual) 7 % (1-10) Eosinophils % (Manual) 6 % (0-3) H Basophils % (Manual) 0 % (0-2) Band Neutrophils 0 % (0-8) Platelet Estimate Adequate Platelet Morphology Normal Hypochromasia 1+ Anisocytosis 1+ Microcytosis 2+ Tear Drop Cells Occasional Schistocytes Occasional Sodium Level 138 MMOL/L (136-145) Potassium Level 3.8 MMOL/L (3.5-5.1) Chloride Level 103 MMOL/L (98-107) Carbon Dioxide Level 26 MMOL/L (21-32) Anion Gap 10 mmol/L (5-15) Blood Urea Nitrogen 13 mg/dL (7-18) Creatinine 1.2 MG/DL (0.55-1.30) Estimat Glomerular Filtration Rate mL/min (>60) Glucose Level 115 MG/DL (74-106) H Calcium Level 9.1 MG/DL (8.5-10.1) Current Medications Medications (Trade) Dose Ordered Sig/Eda Route PRN Reason Start Time Stop Time Status Last Admin Dose Admin Acetaminophen (Tylenol) 650 mg Q4H PRN ORAL T>100.5 02/17/18 18:45 03/19/18 18:44 Al Hydroxide/Mg Hydroxide (Mylanta II) 30 ml Q6H PRN ORAL dyspepsia 02/17/18 18:45 03/19/18 18:44 Albuterol/ Ipratropium (Albuterol/ Ipratropium) 3 ml Q4H PRN HHN Shortness of Breath 02/21/18 10:15 02/26/18 10:14 Amlodipine Besylate (Norvasc) 10 mg DAILY ORAL 02/18/18 09:00 03/20/18 08:59 02/21/18 09:00 Dextrose (Dextrose 50%) 25 ml ONCE PRN IV Hypoglycemia 02/17/18 18:45 03/19/18 18:44 Dextrose (Dextrose 50%) 50 ml ONCE PRN IV hypoglycemia 02/17/18 18:45 03/19/18 18:44 Diphenhydramine HCl (Benadryl) 25 mg Q6H PRN ORAL Itching/Pruritis 02/17/18 18:45 03/19/18 18:44 Insulin Aspart (NovoLOG) BEFORE MEALS AND HS SUBQ 02/17/18 21:00 03/19/18 20:59 02/21/18 11:54 Iron Sucrose 100 mg/Sodium Chloride 60 ml @ 240 mls/hr BEDTIME IV 02/19/18 21:00 02/23/18 21:14 02/20/18 21:02 Losartan Potassium (Cozaar) 100 mg DAILY ORAL 02/18/18 09:00 03/20/18 08:59 02/21/18 09:00 Nitroglycerin (Ntg) 0.4 mg Q5MIN X 3 DOSES PRN SL Prn Chest Pain 02/17/18 18:45 03/19/18 18:44 Ondansetron HCl (Zofran) 4 mg Q6H PRN IVP Nausea & Vomiting 02/17/18 18:45 03/19/18 18:44 Pantoprazole (Protonix) 40 mg DAILY ORAL 02/18/18 09:00 03/20/18 08:59 02/21/18 08:59 Polyethylene Glycol (Miralax) 17 gm HSPRN PRN ORAL Constipation 02/17/18 21:00 03/19/18 20:59 Temazepam (Restoril) 15 mg HSPRN PRN ORAL Insomnia 02/17/18 21:00 02/24/18 20:59 Jesus Tarango MD February 21, 2018 14:08
[2018-02-21] MEDS ORDERED: Tubing IV Secondary IV ONE (15:32)
[2018-02-21] MEDS ORDERED: NS 275ml ONE (15:32)
--- NOTE | 2018-02-21 15:57 | Nephrology Progress Note ---
Assessment/Plan Assessment 1. Hypokalemia, 2. Rule out diabetic nephropathy. 3. Gastrointestinal bleeding. 4. Hypertension, well controlled. 5. Diabetes. 6. Dyslipidemia. 7. History of cerebrovascular accident. 8. History of transient ischemic attack. Plan PLAN iv Venofer replace electrolyte as need ivf monitoring out put avoid NSAID continue with current anti hypertensive meds Subjective Constitutional: Reports: no symptoms HEENT: Reports: no symptoms Genitourinary: Reports: no symptoms Neurologic/Psychiatric: Reports: no symptoms Subjective no new complaints dines any abd pain ,nausea or vomiting Objective Objective Last 24 Hour Vital Signs Date Time Temp Pulse Resp B/P (MAP) Pulse Ox O2 Delivery O2 Flow Rate FiO2 02/21/18 12:00 86 02/21/18 12:00 97.9 90 20 149/86 95 Room Air 97.9 02/21/18 09:00 117/73 02/21/18 09:00 102 117/73 02/21/18 08:00 97.7 102 18 117/73 95 Room Air 97.7 02/21/18 08:00 110 02/21/18 04:00 96 02/21/18 04:00 98.1 93 20 131/67 94 Room Air 98.1 02/21/18 00:00 98.2 96 20 117/71 93 Room Air 98.2 02/21/18 00:00 101 02/20/18 20:00 87 02/20/18 20:00 98.0 95 20 119/75 96 Room Air 98.0 02/20/18 16:00 97.4 95 21 138/78 95 Room Air 97.4 02/20/18 16:00 87 Intake and Output 02/20/18 02/21/18 19:00 07:00 Intake Total 660 ml Balance 660 ml Intake Oral 660 ml # Voids 4 3 Laboratory Tests 02/21/18 07:30: White Blood Count 5.2, Red Blood Count 4.91, Hemoglobin 8.8L, Hematocrit 31.3L, Mean Corpuscular Volume 64L, Mean Corpuscular Hemoglobin 17.9L, Mean Corpuscular Hemoglobin Concent 28.0L, Red Cell Distribution Width 18.5H, Platelet Count 240, Mean Platelet Volume 9.7, Neutrophils (%) (Auto) , Lymphocytes (%) (Auto) , Monocytes (%) (Auto) , Eosinophils (%) (Auto) , Basophils (%) (Auto) , Differential Total Cells Counted 100, Neutrophils % ( Manual) 60, Lymphocytes % (Manual) 27, Monocytes % (Manual) 7, Eosinophils % ( Manual) 6H, Basophils % (Manual) 0, Band Neutrophils 0, Platelet Estimate Adequate, Platelet Morphology Normal, Hypochromasia 1+, Anisocytosis 1+, Microcytosis 2+, Tear Drop Cells Occasional, Schistocytes Occasional, Sodium Level 138, Potassium Level 3.8, Chloride Level 103, Carbon Dioxide Level 26, Anion Gap 10, Blood Urea Nitrogen 13, Creatinine 1.2, Estimat Glomerular Filtration Rate , Glucose Level 115H, Calcium Level 9.1 Height (Feet): 5 Height (Inches): 8.00 Weight (Pounds): 215 Objective HEAD AND NECK: No JVP. No LAD. No thyromegaly. Extraocular movements are intact. Pupils are reactive to light and accommodation. LUNGS: CTA CARDIAC: Regular rate and rhythm. S1 and S2. No murmur. No rub. ABDOMEN: Soft, nontender, and nondistended. EXTREMITIES: No edema. No clubbing. No cyanosis. NEUROLOGIC: Cranial nerves II through XII within normal limits. Upper and lower extremities are grossly intact. Sharri Munoz MD February 21, 2018 15:57
[2018-02-21] MEDS ORDERED: ACETAMINOPHEN325 M1 ORAL (15:58)
[2018-02-21] MEDS ORDERED: MYLANTA30 M1 GT (16:00)
[2018-02-21] MEDS ORDERED: BENADRYL25 M3 PO (16:01)
[2018-02-21] MEDS ORDERED: NITROSTAT0.4 M1 SL (16:04)
[2018-02-21] MEDS ORDERED: MIRALAX17 G2 ORAL (16:06)
[2018-02-21] MEDS ORDERED: TEMAZEPAM15 MG ORAL (16:07)
--- NOTE | 2018-02-22 12:30 | General Progress Note ---
Assessment/Plan Assessment/Plan #. SEVERE Anemia due to iron deficiency (ferritin of 5, TIBC of 545, %sat is just 4!) -- underlying gi bleed is most likely cultprit --> has been started on venofer x 5 days --> gi eval with potential capsule endos --> outpatient po ferrous sulfate #. Pulmonary lung nodules, 5 mm on the left side, have reviewed new CT scan and is unchanged, therefore can be monitored with ct in 6 mo --> likely post-inflammatory in etiology #. Renal mass also appears unchanged, urology outpatient eval #. Diabetes mellitus. Blood sugar goal less than 120, goal between 80 and 120. #. Lightheadedness, potentially secondary to underlying anemia. #. Hypertension, systolic blood pressure goal less than 140. Subjective Date patient seen: February 21, 2018 Constitutional: Denies: no symptoms, chills, diaphoresis, fever, malaise, weakness, other HEENT: Denies: no symptoms, eye pain, blurred vision, tearing, double vision, ear pain, ear discharge, nose pain, nose congestion, throat pain, throat swelling, mouth pain, mouth swelling, other Cardiovascular: Denies: no symptoms, chest pain, edema, irregular heart rate, lightheadedness, palpitations, syncope, other Respiratory: Denies: no symptoms, cough, orthopnea, shortness of breath, SOB with excertion, SOB at rest, sputum, stridor, wheezing, other Gastrointestinal/Abdominal: Denies: no symptoms, abdomen distended, abdominal pain, black stools, tarry stools, blood in stool, constipated, diarrhea, difficulty swallowing, nausea, poor appetite, poor fluid intake, rectal bleeding , vomiting, other Genitourinary: Denies: no symptoms, burning, discharge, frequency, flank pain, hematuria, incontinence, pain, urgency, other Neurologic/Psychiatric: Denies: no symptoms, anxiety, depressed, emotional problems, headache, numbness, paresthesia, pre-existing deficit, seizure, tingling, tremors, weakness, other Endocrine: Denies: no symptoms, excessive sweating, flushing, intolerance to cold, intolerance to heat, increased hunger, increased thirst, increased urine, unexplained weight gain, unexplained weight loss, other Hematologic/Lymphatic: Denies: no symptoms, anemia, easy bleeding, easy bruising, other Allergies: Coded Allergies: No Known Allergies (Unverified , 06/20/14) Subjective gi to eval further, no complaints, on iv iron to be discharged today Objective Intake and Output 02/21/18 02/22/18 19:00 07:00 Intake Total 240 ml Balance 240 ml Intake Oral 240 ml # Voids 3 Height (Feet): 5 Height (Inches): 8.00 Weight (Pounds): 215 General Appearance: no apparent distress EENT: PERRL/EOMI Neck: normal inspection Cardiovascular: regular rhythm Respiratory/Chest: normal breath sounds Abdomen: non tender Extremities: non-tender Edema: 1+ Leg (L), 1+ Leg (R) Houston Fountain MD February 22, 2018 12:30
--- NOTE | 2018-02-24 11:36 | Discharge Summary ---
Discharge Summary Discharge Summary _ DATE OF ADMISSION: 02/17/2018 DATE OF DISCHARGE: 02/21/2018 REASON FOR ADMISSION: 77 years old male with past medical history significant for hypertension, diabetes, , CVA, was sent from by his primary care provider for evaluation due to blood in the stool. Patient denied any abdominal pain. Patient reported having blood in the stool for some time. He denied fever or chills , no nausea and vomiting. Upon evaluation in ED, hemoglobin 9, hematocrit 32.5, no leukocytosis, potassium 3.2 ,glucose 80 ,stable LFT ,stable vital signs. Patient admitted with diagnosis of anemia and GI bleeding for further management CONSULTANTS: component assembler supervisor Dr. Ramos pulmonary Dr. Luna ID specialist Dr. Tarango GI specialist dr Watts printing sales representative Dr. Munoz senior radiation therapist/oncologist Dr. Fountain [facility] COURSE: Patient admitted to telemetry floor. Hemoglobin and hematocrit were closely monitored. GI closely followed. Anemia workup was consistent with anemia of iron deficiency. Patient started on IV Venofer and changed to oral iron upon discharge. Stool for occult blood was positive. Hemoglobin and hematocrit were closely monitored with goal to keep hemoglobin above 8. Bowel regimen instituted. Patient started on PPI. GI followed. Patient status post small bowel capsule endoscopy, results still pending, Diet advanced as tolerated, able to tolerate. Prior to discharge hemoglobin 8.8 and hematocrit 31.3. GI clear for discharge with outpatient follow-up next week . CT of the chest revealed COPD changes, previously reported. Unchanged 7 mm right upper lobe pulmonary nodule since prior study of 12/06/2017. Too small for biopsy. Morphology suggestive of postinflammatory changes. 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 Previous studies indicated that this was a hyperdense cyst. Even though pulmonary nodule probably inflammatory in nature, recommended to repeat CT chest due to high risk secondary to history of smoking. Supplemental oxygen provided as needed to keep pulse oximetry above 92%. Pulmonary toilet provided as needed. Patient was encouraged to continue abstinence from smoking. Infectious disease specialist closely followed, no evidence of infection . Patient was monitored off antibiotic and closely observed. No fever, no leukocytosis. Venous duplex bilateral lower extremities was negative. Blood pressure was managed with calcium channel nickie and angiotensin receptor nickie and was stable. Blood sugar was managed with sliding scale of insulin. Planned Giving Officer followed. EKG showed no acute ST-T changes. Stress test in 2013 revealed no acute ischemia. Patient was on aspirin and statin. No cardiac complaints. Patient remained asymptomatic. For now no aspirin due to anemia and GI bleeding. Cover Remover closely followed. Electrolytes were replaced as needed. Potassium stable prior to discharge. Renal parameters and electrolytes were closely monitored, nephrotoxins were avoided. Patient was working with physical and occupational therapists. Patient was stable for discharge with outpatient follow-up with the GI specialist. FINAL DIAGNOSES: Severe anemia, iron deficiency GI bleeding Status post small bowel capsule endoscopy Right upper lobe lung nodule, unchanged Bronchitis Coronary artery disease with history of AR, asymptomatic History of CVA Hypertension Diabetes Right renal mass, unchanged Hepatitis C DISCHARGE MEDICATIONS: See Medication Reconciliation list. DISCHARGE INSTRUCTIONS: Patient was discharged home with home health services to follow. Patient to follow-up with her primary care provide I have been assigned to dictate discharge summary for this account. I was not involved in the patient's management. Gloria Villalobos NP February 24, 2018 11:36
== END 2018-02-21 16:54 | disposition home health service (06) | DRG 253 ==
LOC: EMR 15:47 → EDBEDREQ 17:06 → 2E 17:33 → EDBEDREQ 18:54
DX: K92.2 Gastrointestinal hemorrhage, unspecified (principal); E11.40 Type 2 diabetes mellitus with diabetic neuropathy, unspecified; I48.91 Unspecified atrial fibrillation; J44.9 Chronic obstructive pulmonary disease, unspecified; D50.0 Iron deficiency anemia secondary to blood loss (chronic); N28.89 Other specified disorders of kidney and ureter; B19.20 Unspecified viral hepatitis C without hepatic coma; I25.2 Old myocardial infarction; I25.10 Atherosclerotic heart disease of native coronary artery without angina pectoris; R91.1 Solitary pulmonary nodule; Z86.73 Personal history of transient ischemic attack (TIA), and cerebral infarction without residual deficits; J40 Bronchitis, not specified as acute or chronic; Z79.4 Long term (current) use of insulin; E87.6 Hypokalemia; E78.5 Hyperlipidemia, unspecified; Z87.891 Personal history of nicotine dependence; I10 Essential (primary) hypertension; R00.0 Tachycardia, unspecified
CPT/HCPCS: 36415; 71260; 80048; 80053; 81003; 82043; 82044; 82150; 82270; 82570; 82607; 82728; 82962; 83090; 83540; 83550; 83690; 83921; 84133; 84300; 84443; 85007; 85025; 85044; 85060; 85384; 85610; 85730; 93005; 93970; 97803; 99285; J1815; J8499

== ENCOUNTER 2018-04-02 12:52 | Outpatient (CLI) | payer MEDICARE, MEDICAID ==
[~2018-04-02 12:52] MED LIST changes: +ACETAMINOPHEN325 M1 ORAL; +BENADRYL25 M3 PO; +MIRALAX17 G2 ORAL; +MYLANTA30 M1 GT; +NITROSTAT0.4 M1 SL; +TEMAZEPAM15 MG ORAL
[2018-04-02 13:34] VITALS: BP 131/72
--- NOTE | 2018-04-02 16:08 | GI Progress Note ---
Assessment/Plan Problems: (1) AVM (arteriovenous malformation) ICD Codes: Q27.30 - Arteriovenous malformation, site unspecified SNOMED: 262259170 (2) Iron deficiency ICD Codes: E61.1 - Iron deficiency SNOMED: 18072514 (3) Hepatitis C ICD Codes: B19.20 - Unspecified viral hepatitis C without hepatic coma SNOMED: 70319610 (4) Anemia ICD Codes: D64.9 - Anemia, unspecified SNOMED: 875491665 (5) Helicobacter pylori (H. pylori) ICD Codes: A04.8 - Other specified bacterial intestinal infections SNOMED: 869350075 Status: stable Status Narrative Discussed with Dr. Watts. Assessment/Plan SBCE SUMMARY OF FINDINGS reviewed with patient: Multiple small intestine AVM, most probably the source for anemia. H. Pylori untreated Hepatitis C GERD Constipation Rectal Bleed Occasional RECOMMENDATIONS: Hep C Quant, bonilla type Tx for H. Pylori Needs Enteroscopy for AVM The patient was seen and examined at bedside and all new and available data was reviewed in the patients chart. I agree with the above findings, impression and plan. (Patient seen earlier today. Signature stamp does not reflect patient encounter time.). - Darin Watts MD Subjective Gastrointestinal/Abdominal: Reports: no symptoms Objective Last 24 Hour Vital Signs Date Time Temp Pulse Resp B/P (MAP) Pulse Ox O2 Delivery O2 Flow Rate FiO2 04/02/18 13:34 97.7 98 20 131/72 91 97.7 General Appearance: WD/WN, no apparent distress, alert Cardiovascular: normal rate Respiratory/Chest: normal breath sounds, no respiratory distress Abdominal Exam: normal bowel sounds, non tender, soft Extremities: normal range of motion, non-tender Dana Daniel SERVICE ASSISTANT Apr 02, 2018 16:08
[2018-04-02 16:24] LABS: BASOPHILS % (AUTO) 1.8 % (0.0-2.0); EOSINOPHILS % (AUTO) 4.3 % (0.0-3.0); HEMATOCRIT 32.8 % (42.0-52.0); HEMOGLOBIN 9.3 G/DL (14.2-18.0); LYMPHOCYTES % (AUTO) 20.5 % (20.0-45.0); MEAN CORPUSCULAR VOLUME 64 FL (80-99); MONOCYTES % (AUTO) 10.6 % (1.0-10.0); NEUTROPHILS % (AUTO) 62.9 % (45.0-75.0); PLATELET COUNT 228 K/UL (150-450); RED BLOOD COUNT 5.09 M/UL (4.70-6.10); RED CELL DISTRIBUTION WIDTH 18.6 % (11.6-14.8); WHITE BLOOD COUNT 5.7 K/UL (4.8-10.8)
[2018-04-02 16:35] LABS: ALANINE AMINOTRANSFERASE 49 U/L (12-78); ALBUMIN 3.7 G/DL (3.4-5.0); ALBUMIN/GLOBULIN RATIO 0.9 (1.0-2.7); ALKALINE PHOSPHATASE 54 U/L (46-116); ANION GAP 10 mmol/L (5-15); ASPARTATE AMINO TRANSFERASE 34 U/L (15-37); BILIRUBIN,TOTAL 0.6 MG/DL (0.2-1.0); BLOOD UREA NITROGEN 19 mg/dL (7-18); CALCIUM 9.4 MG/DL (8.5-10.1); CARBON DIOXIDE 27 MMOL/L (21-32); CHLORIDE 102 MMOL/L (98-107); CREATININE 1.6 MG/DL (0.55-1.30); POTASSIUM 3.8 MMOL/L (3.5-5.1); SODIUM 139 MMOL/L (136-145)
== END 2018-04-02 13:25 | disposition home or self-care (01) ==
LOC: PAN 12:52
DX: D64.9 Anemia, unspecified (principal); Q27.30 Arteriovenous malformation, site unspecified; E61.1 Iron deficiency; B19.20 Unspecified viral hepatitis C without hepatic coma; A04.8 Other specified bacterial intestinal infections; K21.9 Gastro-esophageal reflux disease without esophagitis
CPT/HCPCS: 36415; 80053; 85025; 87517; 87522; 87902; G0463; 99212

== ENCOUNTER 2018-05-11 22:51 | Inpatient (IN) | payer MEDICARE, MEDICAID ==
[~2018-05-11] VITALS: Ht 172.7 cm; Wt 100.4 kg
--- NOTE | 2018-05-11 22:57 | Emergency Room Report ---
History of Present Illness General Chief Complaint: Dyspnea/Respdistress Source: Patient, Medical Record, EMS Present Illness HPI Is a 77-year-old male with a history of high blood pressure, diabetes and COPD. He presents with chief complaint of shortness of breath. His been ongoing for about a week. No increased cough. Increase oxygenation. Worse with exertion. Better with rest. Better with any treatment. No nausea no vomiting and no diarrhea. No fever. Allergies: Coded Allergies: No Known Allergies (Unverified , 06/20/14) Patient History Past Medical History: see triage record, old chart reviewed, DM, HTN, COPD Past Surgical History: other Pertinent Family History: none Social History: Denies: smoking - history of Immunizations: other Reviewed Nursing Documentation: PMH: Agreed; PSxH: Agreed Nursing Documentation-PMH Hx Hypertension: Yes Hx COPD: Yes - Emphysema Hx Diabetes: Yes Hx Cancer: No Hx Gastrointestinal Problems: Yes - AVM in small intestine Hx Neurological Problems: Yes Hx Cerebrovascular Accident: Yes Review of Systems Eye: Denies: eye pain, blurred vision ENT: Denies: ear pain, nose congestion, throat swelling Respiratory: Reports: shortness of breath; Denies: cough Cardiovascular: Denies: chest pain, palpitations Gastrointestinal: Denies: abdominal pain, diarrhea, nausea, vomiting Musculoskeletal: Denies: back pain, joint pain Skin: Denies: rash Neurological: Denies: headache, numbness Endocrine: Denies: increased thirst, increased urine Hematologic/Lymphatic: Denies: easy bruising All Other Systems: negative except mentioned in HPI Physical Exam Vital Signs Date Time Temp Pulse Resp B/P (MAP) Pulse Ox O2 Delivery O2 Flow Rate FiO2 05/11/18 22:38 97.8 134 18 176/119 91 Room Air 97.9 vitals with hypoxia, high blood pressure, tachycardia Sp02 EP Interpretation: reviewed, abnormal General Appearance: well appearing, alert, mild distress Head: normocephalic, atraumatic Eyes: bilateral eye PERRL, bilateral eye EOMI ENT: hearing grossly normal, normal pharynx Neck: full range of motion, supple, no meningismus Respiratory: chest non-tender, respiratory distress, decreased breath sounds, accessory muscle use Cardiovascular #1: regular rate, rhythm, no murmur, tachycardia Gastrointestinal: normal bowel sounds, non tender, no mass, no organomegaly, no bruit, non-distended Musculoskeletal: back normal, gait/station normal, normal range of motion Neurologic: alert, oriented x3 Psychiatric: mood/affect normal Skin: warm/dry Medical Decision Making Diagnostic Impression: Primary Impression: COPD with acute exacerbation Additional Impressions: CHF exacerbation Qualified Codes: I50.9 - Heart failure, unspecified Anemia Qualified Codes: D64.9 - Anemia, unspecified Hypertension Qualified Codes: I10 - Essential (primary) hypertension UTI (urinary tract infection) Qualified Codes: N30.00 - Acute cystitis without hematuria ER Course Patient with shortness of breath. This may be a combination of COPD, cor pulmonale and/or CHF. Patient felt better now. Hemoglobin stable. He does have chronic GI bleeding secondary to AVM. Will admit for further workup. I contacted Dr. Santiago for admission. Lab Results Impression labs with elevated BNP EKG Diagnostic Results Rate: tachycardiac Rhythm: NSR ST Segments: no acute changes Rhythm Strip Diag. Results Rhythm Strip Time: 22:57 EP Interpretation: yes Rate: 100 Rhythm: NSR, no PVC's, no ectopy Chest X-Ray Diagnostic Results Chest X-Ray Diagnostic Results : Chest X-Ray Ordered: Yes # of Views/Limited/Complete: 1 View Indication: Shortness of Breath EP Interpretation: Yes Interpretation: no consolidation, no effusion, no pneumothorax, other - CARDIOMEGALY WITH VASCULAR CONGESTION Impression: Other - CHF Electronically Signed by: Lew Daniel MD Last Vital Signs Date Time Temp Pulse Resp B/P (MAP) Pulse Ox O2 Delivery O2 Flow Rate FiO2 05/11/18 22:38 97.8 134 18 176/119 91 Room Air 97.9 Status: improved Disposition: ADMITTED INPATIENT Condition: Serious LEW DANIEL M.D. May 11, 2018 22:57
[2018-05-11] MEDS ORDERED: Albuterol ud Inhalation HHN ONE (23:00)
[2018-05-11] MEDS ORDERED: Solu-MEDROL 125mg Inj IVP ONE (23:00)
[2018-05-11] MEDS ORDERED: Ipratropium 0.02% Inh Soln 2.5ml UD HHN ONE (23:00)
[2018-05-11 23:34] LABS: BASOPHILS % (AUTO) 1.3 % (0.0-2.0); EOSINOPHILS % (AUTO) 3.9 % (0.0-3.0); HEMATOCRIT 30.6 % (42.0-52.0); HEMOGLOBIN 8.4 G/DL (14.2-18.0); LYMPHOCYTES % (AUTO) 22.2 % (20.0-45.0); MEAN CORPUSCULAR VOLUME 62 FL (80-99); MONOCYTES % (AUTO) 15.1 % (1.0-10.0); NEUTROPHILS % (AUTO) 57.6 % (45.0-75.0); PLATELET COUNT 178 K/UL (150-450); RED BLOOD COUNT 4.93 M/UL (4.70-6.10); RED CELL DISTRIBUTION WIDTH 17.3 % (11.6-14.8); WHITE BLOOD COUNT 5.3 K/UL (4.8-10.8)
[2018-05-11 23:50] LABS: ANION GAP 9 mmol/L (5-15); BLOOD UREA NITROGEN 14 mg/dL (7-18); CALCIUM 9.2 MG/DL (8.5-10.1); CARBON DIOXIDE 30 MMOL/L (21-32); CHLORIDE 100 MMOL/L (98-107); CREATININE 1.4 MG/DL (0.55-1.30); POTASSIUM 3.4 MMOL/L (3.5-5.1); SODIUM 138 MMOL/L (136-145)
[2018-05-11 23:52] LABS: INR 1.2 (0.9-1.1)
[2018-05-12 00:04] LABS: ALANINE AMINOTRANSFERASE 23 U/L (12-78); ALBUMIN 3.5 G/DL (3.4-5.0); ALBUMIN/GLOBULIN RATIO 0.9 (1.0-2.7); ALKALINE PHOSPHATASE 44 U/L (46-116); ASPARTATE AMINO TRANSFERASE 31 U/L (15-37); BILIRUBIN,TOTAL 0.9 MG/DL (0.2-1.0); CKMB 1.3 NG/ML (0.0-3.6); CREATINE KINASE 99 U/L (26-308)
[2018-05-12 00:07] VITALS: BP 123/74
[2018-05-12 00:35] LABS: BILIRUBIN, URINE NEGATIVE (NEGATIVE); GLUCOSE, URINE (UA) NEGATIVE (NEGATIVE); KETONES,URINE NEGATIVE (NEGATIVE); LEUKOCYTE ESTERASE ,URINE 2+ (NEGATIVE); NITRITE,URINE NEGATIVE (NEGATIVE); PH,URINE 6 (4.5-8.0); PROTEIN,URINE 3+ (NEGATIVE); UROBILINOGEN,URINE 4 MG/DL (NORMAL)
[2018-05-12 00:49] LABS: APPEARANCE,URINE SLIGHTLY CLOUDY; COLOR,URINE YELLOW
[2018-05-12] MEDS ORDERED: cefTRIAXone 1 GM in NS 55 ML IVPB ONE (01:00)
[2018-05-12 02:00] VITALS: BP 135/74
[2018-05-12] MEDS ORDERED: Ketorolac 30mg Inj IV PRN (04:15)
[2018-05-12] MEDS ORDERED: Promethazine/Codeine 5ml UD ORAL PRN (04:15)
[2018-05-12] MEDS ORDERED: Nitroglycerin Subl 0.4mg tab SL PRN (04:15)
[2018-05-12] MEDS ORDERED: LORazepam Inj 2mg/ml 1ml IV PRN (04:15)
[2018-05-12] MEDS ORDERED: Morphine Sulfate 2mg/ml Inj(IV/IM USE ONLY) IVP PRN (04:15)
[2018-05-12] MEDS: Albuterol/Ipratropium 3ml neb HHN PRN (05:03)
[2018-05-12] MEDS ORDERED: Piperacillin/Tazobactam 2.25 GM in D5W 55 ML IV SCH (06:00)
[2018-05-12] MEDS: Solu-MEDROL 125mg Inj IV SCH ×3 (06:17→17:40)
[2018-05-12 08:00] VITALS: BP 146/92
--- NOTE | 2018-05-12 08:52 | Consultation ---
History of Present Illness General Date patient seen: May 12, 2018 Chief Complaint: Dyspnea/Respdistress Reason for Consultation: UTI Present Illness HPI Mr. 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 He says that he has had some cough, No sick contacts. Had some dysuria last few says but denie N/V/D and abdominal/ back pain. He has had anemia for 2-3 years now and gets intermittent dizziness and requires transfusions. He also reports having congestion in his chest at time. He has had no sick contacts but has been sob and not able to walk more then a few feet for the last few days. He denies fevers and chills In the ED he was found to have no fever or leukocytosis . His UA does show many WBCs. He has been stable on 2L of O2 via NC. He was started on Zosyn pending work up. PMHx / PSHx #DM #HTN #COPD #CVA #Anemia # GI bleeding secondary to AVM SocHx Denies E/T/D Lives with Shabana HTN No Bleeding issue Allergies: Coded Allergies: No Known Allergies (Unverified , 06/20/14) Medication History Scheduled Amlodipine Besylate (Norvasc), 10 MG ORAL DAILY, (Reported) Aspirin* (Aspir 81*), 81 MG ORAL DAILY, (Reported) Atorvastatin Calcium* (Atorvastatin Calcium*), 20 MG ORAL BEDTIME, (Reported) Diphenhydramine HCl (Benadryl), 25 MG PO Q6HR, (Reported) Ferrous Sulfate* (Ferrous Sulfate*), 325 MG ORAL TWICE A DAY, (Reported) Hum Insulin Nph/Reg Insulin Hm (Humulin 70-30 Vial), 30 UNITS SUBQ ACBREAKFAST, (Reported) Hum Insulin Nph/Reg Insulin Hm (Humulin 70-30 Vial), 20 UNITS SUBQ QHS, ( Reported) Hydrochlorothiazide* (Hydrochlorothiazide*), 25 MG ORAL DAILY, (Reported) Losartan Potassium (Losartan Potassium), 100 MG ORAL DAILY, (Reported) Metformin Hcl* (Metformin Hcl*), 1,000 MG ORAL BID, (Reported) Pantoprazole* (Protonix*), 40 MG ORAL DAILY, (Reported) Simvastatin (Zocor), 40 MG ORAL BEDTIME, (Reported) Temazepam (Temazepam*), 15 MG ORAL BEDTIME, (Reported) Scheduled PRN Albuterol Sulfate (Proventil Hfa), 6.7 GM IH for Shortness of Breath, (Reported) Nitroglycerin (Nitrostat), 0.4 MG SL Q5M X3 DOSES PRN for CHEST PAIN, (Reported) Polyethylene Glycol 3350* (Miralax*), 17 GM ORAL DAILY PRN for Constipation, ( Reported) Patient History Healthcare decision maker Resuscitation status Full Code Advanced Directive on File No Review of Systems All Other Systems: negative except mentioned in HPI Physical Exam Last 24 Hour Vital Signs Date Time Temp Pulse Resp B/P (MAP) Pulse Ox O2 Delivery O2 Flow Rate FiO2 05/12/18 08:00 97.8 94 20 146/92 (110) 96 97.8 05/12/18 07:45 95 15 Nasal Cannula 3.0 32 05/12/18 07:45 Nasal Cannula 3.0 32 05/12/18 04:00 93 05/12/18 02:30 98.0 95 20 97 98.0 05/12/18 02:30 Nasal Cannula 2.0 05/12/18 02:30 Nasal Cannula 2.0 05/12/18 02:15 98.5 98 12 135/74 96 Nasal Cannula 2.0 28 98.5 05/12/18 02:00 98 12 135/74 96 Nasal Cannula 2.0 05/12/18 00:07 98.5 118 16 123/74 97 Room Air 2.0 98.5 05/11/18 23:25 99 12 100 Nasal Cannula 2.0 28 05/11/18 23:16 100 10 99 Nasal Cannula 2.0 28 05/11/18 23:14 100 10 Nasal Cannula 2.0 28 05/11/18 23:13 Nasal Cannula 2.0 28 05/11/18 22:51 134 18 Room Air 05/11/18 22:38 97.8 134 18 176/119 91 Room Air 97.9 Intake and Output 05/11/18 05/12/18 19:00 07:00 Intake Total 405 ml Output Total 1600 ml Balance -1195 ml Intake Oral 250 ml IV Total 155 ml Output Urine Total 1600 ml # Voids 3 # Bowel Movements 2 Laboratory Tests Test 05/11/18 23:20 05/12/18 00:20 White Blood Count 5.3 K/UL (4.8-10.8) Red Blood Count 4.93 M/UL (4.70-6.10) Hemoglobin 8.4 G/DL (14.2-18.0) L Hematocrit 30.6 % (42.0-52.0) L Mean Corpuscular Volume 62 FL (80-99) L Mean Corpuscular Hemoglobin 17.0 PG (27.0-31.0) L Mean Corpuscular Hemoglobin Concent 27.3 G/DL (32.0-36.0) L Red Cell Distribution Width 17.3 % (11.6-14.8) H Platelet Count 178 K/UL (150-450) Mean Platelet Volume 5.7 FL (6.5-10.1) L Neutrophils (%) (Auto) 57.6 % (45.0-75.0) Lymphocytes (%) (Auto) 22.2 % (20.0-45.0) Monocytes (%) (Auto) 15.1 % (1.0-10.0) H Eosinophils (%) (Auto) 3.9 % (0.0-3.0) H Basophils (%) (Auto) 1.3 % (0.0-2.0) Prothrombin Time 12.2 SEC (9.30-11.50) H Prothromb Time International Ratio 1.2 (0.9-1.1) H Activated Partial Thromboplast Time 27 SEC (23-33) Sodium Level 138 MMOL/L (136-145) Potassium Level 3.4 MMOL/L (3.5-5.1) L Chloride Level 100 MMOL/L (98-107) Carbon Dioxide Level 30 MMOL/L (21-32) Anion Gap 9 mmol/L (5-15) Blood Urea Nitrogen 14 mg/dL (7-18) Creatinine 1.4 MG/DL (0.55-1.30) H Estimat Glomerular Filtration Rate mL/min (>60) Glucose Level 99 MG/DL (74-106) Calcium Level 9.2 MG/DL (8.5-10.1) Total Bilirubin 0.9 MG/DL (0.2-1.0) Aspartate Amino Transf (AST/SGOT) 31 U/L (15-37) Alanine Aminotransferase (ALT/SGPT) 23 U/L (12-78) Alkaline Phosphatase 44 U/L (46-116) L Total Creatine Kinase 99 U/L (26-308) Creatine Kinase MB 1.3 NG/ML (0.0-3.6) Creatine Kinase MB Relative Index 1.3 Troponin I 0.034 ng/mL (0.000-0.056) Pro-B-Type Natriuretic Peptide 3001 pg/mL (0-125) H Total Protein 7.6 G/DL (6.4-8.2) Albumin 3.5 G/DL (3.4-5.0) Globulin 4.1 g/dL Albumin/Globulin Ratio 0.9 (1.0-2.7) L Urine Color Yellow Urine Appearance Slightly cloudy Urine pH 6 (4.5-8.0) Urine Specific [place] 1.015 (1.005-1.035) Urine Protein 3+ (NEGATIVE) H Urine Glucose (UA) Negative (NEGATIVE) Urine Ketones Negative (NEGATIVE) Urine Occult Blood Negative (NEGATIVE) Urine Nitrite Negative (NEGATIVE) Urine Bilirubin Negative (NEGATIVE) Urine Urobilinogen 4 MG/DL (NORMAL) H Urine Leukocyte Esterase 2+ (NEGATIVE) H Urine RBC 0-2 /HPF (0 - 0) H Urine WBC Tntc /HPF (0 - 0) H Urine Squamous Epithelial Cells Few /LPF (NONE/OCC) Urine Bacteria Few /HPF (NONE) Urine Opiates Screen Negative (NEGATIVE) Urine Barbiturates Screen Negative (NEGATIVE) Phencyclidine (PCP) Screen Negative (NEGATIVE) Urine Amphetamines Screen Negative (NEGATIVE) Urine Benzodiazepines Screen Negative (NEGATIVE) Urine Cocaine Screen Negative (NEGATIVE) Urine Marijuana (THC) Screen Positive (NEGATIVE) H Height (Feet): 5 Height (Inches): 8.00 Weight (Pounds): 215 Medications Current Medications Medications (Trade) Dose Ordered Sig/Eda Route PRN Reason Start Time Stop Time Status Last Admin Dose Admin Albuterol/ Ipratropium (Albuterol/ Ipratropium) 3 ml Q4H PRN HHN dyspnea 05/12/18 04:15 05/17/18 04:14 05/12/18 05:03 Dextrose (Dextrose 50%) STAT PRN IV Hypoglycemia 05/12/18 04:15 06/11/18 04:14 Heparin Sodium (Porcine) (Heparin 5000 units/ml) 5,000 units EVERY 12 HOURS SUBQ 05/12/18 09:00 06/11/18 08:59 Ketorolac Tromethamine (Toradol 30mg) 15 mg Q8H PRN IV moderate pain 4-6 05/12/18 04:15 05/17/18 04:14 Lorazepam (Ativan 2mg/ml 1ml) 0.5 mg Q4H PRN IV For Anxiety 05/12/18 04:15 05/19/18 04:14 Methylprednisolone Sodium Succinate (Solu-MEDROL) 60 mg EVERY 6 HOURS IV 05/12/18 06:00 06/11/18 05:59 05/12/18 06:17 Morphine Sulfate (Morphine Sulfate) 2 mg Q4H PRN IVP severe pain 7-10 05/12/18 04:15 05/19/18 04:14 Nitroglycerin (Ntg) 0.4 mg Q5M X 3 DOSES PRN SL Prn Chest Pain 05/12/18 04:15 06/11/18 04:14 Ondansetron HCl (Zofran) 4 mg Q6H PRN IVP Nausea & Vomiting 05/12/18 04:15 06/11/18 04:14 Piperacillin Sod/ Tazobactam Sod 3.375 gm/Sodium Chloride 110 ml @ 27.5 mls/hr EVERY 8 HOURS IVPB 05/12/18 14:00 05/17/18 13:59 Promethazine HCl/ Codeine (Phenergan with Codeine) 5 ml Q6H PRN ORAL cough 05/12/18 04:15 06/11/18 04:14 Temazepam (Restoril) 15 mg HSPRN PRN ORAL Insomnia 05/12/18 04:15 05/19/18 04:14 Theophylline (Luis Fernando-Dur) 100 mg EVERY 12 HOURS ORAL 05/12/18 09:00 06/11/18 08:59 Objective Narrative Gen: NAD, Large man on 2L O2 HEENT: NCAT, MMM, EOMI, no scleral icterus, LUNGS: CTAB, No W/C, No Accessory muscle use CARDS: RRR, S1, S2, No M/R/G, ABD: Soft, NT, ND, + BS Ext: C/C/E, Pulses 2+ B/L (DP, Rad): NEURO: A/O x 4, Strength and Sensation Grossly intact SKIN: warm/dry, No rashes, or other skin lesions Assessment/Plan Assessment/Plan 77 yo male with PMHx of DM and COPD who presents with SOB for the last week. # Shortness of breath - - Anemia, Congestion, COPD? Viral URI - No evidence for bacterial infection. - CXR 05/11 Nonspecific increased lung markings, most pronounced in the bases. Findings may be related to congestion or possible small airway disease/ bronchitis. - Patient stable on minimal O2 # Pyuria Patient with BPH and and mild dysuria - f/u Urine Cx #DM #HTN #COPD #CVA # GI bleeding secondary to AVM PLAN - Stop Zosyn start Ceftriaxone for possible UTI - get Urine Culture - Aspiration precautions - Monitor CBC and Temps - Thank you for consulting us for the care of this patient. We will continue to follow with you. Camacho Lan M.D. May 12, 2018 08:52
[2018-05-12] MEDS: Theophylline ER 100mg ORAL SCH ×2 (09:30→20:38)
[2018-05-12] MEDS: Heparin 5000 units/ml inj SUBQ SCH ×2 (09:35→20:40)
--- NOTE | 2018-05-12 10:36 | Diagnostic Imaging Report ---
Indication: Shortness of breath Technique: XRAY Chest 1v Comparison: 12/04/2017: CT chest 02/18/2018. Findings: Stable mild cardiomegaly. Aorta is again noted to be tortuous. There is slightly increased lung markings this is nonspecific and seen on prior exams. No definite focal airspace consolidation. Costophrenic sulci are sharp. No pneumothorax. Previously described right upper lobe lung nodule noted on CT is not apparent radiographically. No acute osseous abnormality appreciated. IMPRESSION: Nonspecific increased lung markings, most pronounced in the bases. Findings may be related to congestion or possible small airway disease/bronchitis. Correlate clinically. No definite focal consolidation, pleural effusion or pneumothorax.
--- NOTE | 2018-05-12 11:11 | Consultation ---
History of Present Illness General Date patient seen: May 12, 2018 Chief Complaint: Dyspnea/Respdistress Reason for Consultation: UTI Present Illness HPI 77-year-old male with a history of high blood pressure, diabetes and COPD, anemia presented to ER with chief complaint of shortness of breath. His been ongoing for about a week. Worse with exertion. Better with rest. Better with any treatment. No nausea no vomiting and no diarrhea. No fever. Pt is admitted for acute exacerbation of COPD and possibly CHF. Allergies: Coded Allergies: No Known Allergies (Unverified , 06/20/14) Medication History Scheduled Amlodipine Besylate (Norvasc), 10 MG ORAL DAILY, (Reported) Aspirin* (Aspir 81*), 81 MG ORAL DAILY, (Reported) Atorvastatin Calcium* (Atorvastatin Calcium*), 20 MG ORAL BEDTIME, (Reported) Diphenhydramine HCl (Benadryl), 25 MG PO Q6HR, (Reported) Ferrous Sulfate* (Ferrous Sulfate*), 325 MG ORAL TWICE A DAY, (Reported) Hum Insulin Nph/Reg Insulin Hm (Humulin 70-30 Vial), 30 UNITS SUBQ ACBREAKFAST, (Reported) Hum Insulin Nph/Reg Insulin Hm (Humulin 70-30 Vial), 20 UNITS SUBQ QHS, ( Reported) Hydrochlorothiazide* (Hydrochlorothiazide*), 25 MG ORAL DAILY, (Reported) Losartan Potassium (Losartan Potassium), 100 MG ORAL DAILY, (Reported) Metformin Hcl* (Metformin Hcl*), 1,000 MG ORAL BID, (Reported) Pantoprazole* (Protonix*), 40 MG ORAL DAILY, (Reported) Simvastatin (Zocor), 40 MG ORAL BEDTIME, (Reported) Temazepam (Temazepam*), 15 MG ORAL BEDTIME, (Reported) Scheduled PRN Albuterol Sulfate (Proventil Hfa), 6.7 GM IH for Shortness of Breath, (Reported) Nitroglycerin (Nitrostat), 0.4 MG SL Q5M X3 DOSES PRN for CHEST PAIN, (Reported) Polyethylene Glycol 3350* (Miralax*), 17 GM ORAL DAILY PRN for Constipation, ( Reported) Patient History Healthcare decision maker Resuscitation status Full Code Advanced Directive on File No Past Medical/Surgical History Past Medical/Surgical History: (1) Anemia (2) Hepatitis C (3) AVM (arteriovenous malformation) (4) Pulmonary nodule (5) HTN (hypertension) (6) Diabetes (7) COPD (chronic obstructive pulmonary disease) (8) Hypertension Review of Systems Respiratory: Reports: cough, SYED Physical Exam General Appearance: WD/WN Lines, tubes and drains: peripheral HEENT: normocephalic, atraumatic Neck: non-tender, normal alignment Respiratory/Chest: chest wall non-tender, lungs clear Cardiovascular/Chest: normal peripheral pulses, regular rhythm Abdomen: normal bowel sounds, non tender Genitourinary/Rectal: normal genital exam Extremities: normal range of motion Skin Exam: normal pigmentation 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: 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 medicine tech 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 Last 24 Hour Vital Signs Date Time Temp Pulse Resp B/P (MAP) Pulse Ox O2 Delivery O2 Flow Rate FiO2 05/12/18 08:00 97.8 94 20 146/92 (110) 96 97.8 05/12/18 07:45 95 15 Nasal Cannula 3.0 32 05/12/18 07:45 Nasal Cannula 3.0 32 05/12/18 04:00 93 05/12/18 02:30 98.0 95 20 97 98.0 05/12/18 02:30 Nasal Cannula 2.0 05/12/18 02:30 Nasal Cannula 2.0 05/12/18 02:15 98.5 98 12 135/74 96 Nasal Cannula 2.0 28 98.5 05/12/18 02:00 98 12 135/74 96 Nasal Cannula 2.0 05/12/18 00:07 98.5 118 16 123/74 97 Room Air 2.0 98.5 05/11/18 23:25 99 12 100 Nasal Cannula 2.0 28 05/11/18 23:16 100 10 99 Nasal Cannula 2.0 28 05/11/18 23:14 100 10 Nasal Cannula 2.0 28 05/11/18 23:13 Nasal Cannula 2.0 28 05/11/18 22:51 134 18 Room Air 05/11/18 22:38 97.8 134 18 176/119 91 Room Air 97.9 Intake and Output 05/11/18 05/12/18 19:00 07:00 Intake Total 405 ml Output Total 1600 ml Balance -1195 ml Intake Oral 250 ml IV Total 155 ml Output Urine Total 1600 ml # Voids 3 # Bowel Movements 2 Laboratory Tests Test 05/11/18 23:20 05/12/18 00:20 White Blood Count 5.3 K/UL (4.8-10.8) Red Blood Count 4.93 M/UL (4.70-6.10) Hemoglobin 8.4 G/DL (14.2-18.0) L Hematocrit 30.6 % (42.0-52.0) L Mean Corpuscular Volume 62 FL (80-99) L Mean Corpuscular Hemoglobin 17.0 PG (27.0-31.0) L Mean Corpuscular Hemoglobin Concent 27.3 G/DL (32.0-36.0) L Red Cell Distribution Width 17.3 % (11.6-14.8) H Platelet Count 178 K/UL (150-450) Mean Platelet Volume 5.7 FL (6.5-10.1) L Neutrophils (%) (Auto) 57.6 % (45.0-75.0) Lymphocytes (%) (Auto) 22.2 % (20.0-45.0) Monocytes (%) (Auto) 15.1 % (1.0-10.0) H Eosinophils (%) (Auto) 3.9 % (0.0-3.0) H Basophils (%) (Auto) 1.3 % (0.0-2.0) Prothrombin Time 12.2 SEC (9.30-11.50) H Prothromb Time International Ratio 1.2 (0.9-1.1) H Activated Partial Thromboplast Time 27 SEC (23-33) Sodium Level 138 MMOL/L (136-145) Potassium Level 3.4 MMOL/L (3.5-5.1) L Chloride Level 100 MMOL/L (98-107) Carbon Dioxide Level 30 MMOL/L (21-32) Anion Gap 9 mmol/L (5-15) Blood Urea Nitrogen 14 mg/dL (7-18) Creatinine 1.4 MG/DL (0.55-1.30) H Estimat Glomerular Filtration Rate mL/min (>60) Glucose Level 99 MG/DL (74-106) Calcium Level 9.2 MG/DL (8.5-10.1) Total Bilirubin 0.9 MG/DL (0.2-1.0) Aspartate Amino Transf (AST/SGOT) 31 U/L (15-37) Alanine Aminotransferase (ALT/SGPT) 23 U/L (12-78) Alkaline Phosphatase 44 U/L (46-116) L Total Creatine Kinase 99 U/L (26-308) Creatine Kinase MB 1.3 NG/ML (0.0-3.6) Creatine Kinase MB Relative Index 1.3 Troponin I 0.034 ng/mL (0.000-0.056) Pro-B-Type Natriuretic Peptide 3001 pg/mL (0-125) H Total Protein 7.6 G/DL (6.4-8.2) Albumin 3.5 G/DL (3.4-5.0) Globulin 4.1 g/dL Albumin/Globulin Ratio 0.9 (1.0-2.7) L Urine Color Yellow Urine Appearance Slightly cloudy Urine pH 6 (4.5-8.0) Urine Specific [place] 1.015 (1.005-1.035) Urine Protein 3+ (NEGATIVE) H Urine Glucose (UA) Negative (NEGATIVE) Urine Ketones Negative (NEGATIVE) Urine Occult Blood Negative (NEGATIVE) Urine Nitrite Negative (NEGATIVE) Urine Bilirubin Negative (NEGATIVE) Urine Urobilinogen 4 MG/DL (NORMAL) H Urine Leukocyte Esterase 2+ (NEGATIVE) H Urine RBC 0-2 /HPF (0 - 0) H Urine WBC Tntc /HPF (0 - 0) H Urine Squamous Epithelial Cells Few /LPF (NONE/OCC) Urine Bacteria Few /HPF (NONE) Urine Opiates Screen Negative (NEGATIVE) Urine Barbiturates Screen Negative (NEGATIVE) Phencyclidine (PCP) Screen Negative (NEGATIVE) Urine Amphetamines Screen Negative (NEGATIVE) Urine Benzodiazepines Screen Negative (NEGATIVE) Urine Cocaine Screen Negative (NEGATIVE) Urine Marijuana (THC) Screen Positive (NEGATIVE) H Height (Feet): 5 Height (Inches): 8.00 Weight (Pounds): 215 Medications Current Medications Medications (Trade) Dose Ordered Sig/Eda Route PRN Reason Start Time Stop Time Status Last Admin Dose Admin Albuterol/ Ipratropium (Albuterol/ Ipratropium) 3 ml Q4H PRN HHN dyspnea 05/12/18 04:15 05/17/18 04:14 05/12/18 05:03 Dextrose (Dextrose 50%) STAT PRN IV Hypoglycemia 05/12/18 04:15 06/11/18 04:14 Heparin Sodium (Porcine) (Heparin 5000 units/ml) 5,000 units EVERY 12 HOURS SUBQ 05/12/18 09:00 06/11/18 08:59 05/12/18 09:35 Ketorolac Tromethamine (Toradol 30mg) 15 mg Q8H PRN IV moderate pain 4-6 05/12/18 04:15 05/17/18 04:14 Lorazepam (Ativan 2mg/ml 1ml) 0.5 mg Q4H PRN IV For Anxiety 05/12/18 04:15 05/19/18 04:14 Methylprednisolone Sodium Succinate (Solu-MEDROL) 60 mg EVERY 6 HOURS IV 05/12/18 06:00 06/11/18 05:59 05/12/18 06:17 Morphine Sulfate (Morphine Sulfate) 2 mg Q4H PRN IVP severe pain 7-10 05/12/18 04:15 05/19/18 04:14 Nitroglycerin (Ntg) 0.4 mg Q5M X 3 DOSES PRN SL Prn Chest Pain 05/12/18 04:15 06/11/18 04:14 Ondansetron HCl (Zofran) 4 mg Q6H PRN IVP Nausea & Vomiting 05/12/18 04:15 06/11/18 04:14 Piperacillin Sod/ Tazobactam Sod 3.375 gm/Sodium Chloride 110 ml @ 27.5 mls/hr EVERY 8 HOURS IVPB 05/12/18 14:00 05/17/18 13:59 Promethazine HCl/ Codeine (Phenergan with Codeine) 5 ml Q6H PRN ORAL cough 05/12/18 04:15 06/11/18 04:14 Temazepam (Restoril) 15 mg HSPRN PRN ORAL Insomnia 05/12/18 04:15 05/19/18 04:14 Theophylline (Luis Fernando-Dur) 100 mg EVERY 12 HOURS ORAL 05/12/18 09:00 06/11/18 08:59 05/12/18 09:30 Assessment/Plan Problem List: (1) COPD with acute exacerbation ICD Codes: J44.1 - Chronic obstructive pulmonary disease with (acute) exacerbation SNOMED: 200619976 (2) Pulmonary nodule ICD Codes: R91.1 - Solitary pulmonary nodule SNOMED: 871412932 (3) Hypertension ICD Codes: I10 - Essential (primary) hypertension SNOMED: 63426847 (4) Hepatitis C ICD Codes: B19.20 - Unspecified viral hepatitis C without hepatic coma SNOMED: 20627274 (5) Diabetes ICD Codes: E11.9 - Type 2 diabetes mellitus without complications SNOMED: 50475079 Assessment/Plan respiratory treatment check sputum iv sterids and antibiotics titrate fio2 to sat of 92% echo cardiogram sliding scale and diabetic diet dvt prophylaxis. Balta Luna MD May 12, 2018 11:11
[2018-05-12 12:00] VITALS: BP 179/99
[2018-05-12] MEDS: NovoLOG Insulin Flexpen SUBQ SCH ×3 (12:09→20:37)
[2018-05-12] MEDS ORDERED: Zoysn 3.37gm in NS 100ML IVPB SCH (14:00)
[2018-05-12 16:00] VITALS: BP 169/104
[2018-05-12 20:00] VITALS: BP 160/98
[2018-05-12] MEDS ORDERED: cefTRIAXone 1 GM in D5W 55 ML IVPB SCH (20:00)
[2018-05-12] MEDS: Atorvastatin 20mg tab ORAL SCH (20:42)
--- NOTE | 2018-05-12 20:45 | History and Physical Report ---
DATE OF ADMISSION: 05/12/2018 TIME SEEN: 2 p.m. CONSULTANTS: 1. Jesus Tarango M.D. 2. Balta Luna M.D. 3. Jorgito Pickering M.D. CHIEF COMPLAINT: Shortness of breath, CHF, exacerbation of COPD. BRIEF HISTORY: The patient is a 77-year-old male from home who comes to my office regularly presents to [facility] last night with history of shortness of breath increasing x1 week, diagnosed with CHF exacerbation and COPD exacerbation, UTI, and admitted to telemetry for further care. Currently on O2 NC, sleeping in bed, slight short of breath, very lethargic. REVIEW OF SYSTEMS: Unavailable. PAST MEDICAL HISTORY: Per chart showed diabetes, hypertension, CVA, hep C, COPD, CHF. PAST SURGICAL HISTORY: Unknown. MEDICATIONS: Include amlodipine, losartan, Protonix, Lipitor, ceftriaxone, ferrous sulfate, insulin, heparin, methylprednisolone, theophylline, albuterol, lorazepam. ALLERGIES: Denies. SOCIAL HISTORY: Unable to obtain secondary to the patient's sleep and lethargy. OBJECTIVE: GENERAL: Calm in bed, sleepy. VITAL SIGNS: Temperature is 97 degrees, pulse 94, respiratory rate 20, blood pressure 146/92. CARDIOVASCULAR: No murmur. LUNGS: Poor exchange. ABDOMEN: Bowel sounds distant. EXTREMITIES: No cyanosis, clubbing, or edema. NEURO: The patient moves all extremities, does not follow commands. LABORATORY AND DIAGNOSTIC DATA: H and H is 8.4 and 30, otherwise CBC is normal. BMP shows potassium 3.4, creatinine 1.4. Alkaline phosphatase 44. BNP is 3001 otherwise normal. Troponin 0.034. INR is 1.2 and PTT is 27. Urinalysis show 2+ leukocyte esterase. ASSESSMENT: 1. CHF exacerbation. 2. COPD exacerbation. 3. UTI. 4. Anemia. 5. Diabetes. 6. Hypertension. 7. CVA. 8. Hep C. PLAN: 1. O2, pulmonary treatment. 2. Antibiotics per Infectious Diseases. 3. Blood pressure and blood sugar control. 4. Dietary followup. 5. Taper off steroids if possible. 6. We will check CBC and BMP in the morning. Bry Santiago D.O. DR: Xochitl JOB#: [id number] CC:
[2018-05-13] VITALS (7 sets, daily range): BP systolic 107–160; BP diastolic 59–98
[2018-05-13] MEDS: Solu-MEDROL 125mg Inj IV SCH ×2 (00:47→05:55)
[2018-05-13] MEDS: NovoLOG Insulin Flexpen SUBQ SCH ×4 (05:59→20:56)
[2018-05-13 06:59] LABS: HEMATOCRIT 29.6 % (42.0-52.0); HEMOGLOBIN 7.7 G/DL (14.2-18.0); MEAN CORPUSCULAR VOLUME 63 FL (80-99); PLATELET COUNT 190 K/UL (150-450); RED BLOOD COUNT 4.69 M/UL (4.70-6.10); RED CELL DISTRIBUTION WIDTH 17.7 % (11.6-14.8)
[2018-05-13 07:01] LABS: ANION GAP 3 mmol/L (5-15); BLOOD UREA NITROGEN 18 mg/dL (7-18); CARBON DIOXIDE 35 MMOL/L (21-32); CHLORIDE 97 MMOL/L (98-107); CREATININE 1.3 MG/DL (0.55-1.30); POTASSIUM 4.1 MMOL/L (3.5-5.1); SODIUM 135 MMOL/L (136-145)
[2018-05-13] MEDS: Theophylline ER 100mg ORAL SCH ×2 (09:03→20:53)
[2018-05-13] MEDS: Losartan 50mg tab ORAL SCH (09:04)
[2018-05-13] MEDS: Heparin 5000 units/ml inj SUBQ SCH ×2 (09:06→20:55)
--- NOTE | 2018-05-13 10:47 | Pulmonology Progress Note ---
Assessment/Plan Problems: (1) COPD with acute exacerbation (2) Pulmonary nodule (3) AVM (arteriovenous malformation) (4) Iron deficiency (5) Diabetes (6) Hepatitis C (7) Hypertension Assessment/Plan taper steroids Laxis cardiac evaluation respiratory treatment prbc prn pt might need resection of AVM malformation in small intestine Subjective ROS Limited/Unobtainable: No Interval Events: still c/o chest pain Constitutional: Reports: no symptoms HEENT: Repors: no symptoms Respiratory: Reports: no symptoms Allergies: Coded Allergies: No Known Allergies (Unverified , 06/20/14) Objective Last 24 Hour Vital Signs Date Time Temp Pulse Resp B/P (MAP) Pulse Ox O2 Delivery O2 Flow Rate FiO2 05/13/18 09:04 125/79 05/13/18 09:04 91 125/79 05/13/18 09:00 Nasal Cannula 2.0 05/13/18 08:05 Nasal Cannula 2.0 28 05/13/18 08:05 98 Nasal Cannula 2.0 28 05/13/18 08:05 91 16 Nasal Cannula 2.0 28 05/13/18 08:00 97.3 86 18 125/79 (94) 97 97.3 05/13/18 04:00 98.6 89 20 154/89 (110) 97 98.6 05/13/18 04:00 91 05/13/18 00:47 160/98 05/13/18 00:00 88 05/13/18 00:00 98.1 87 20 160/98 (118) 97 98.1 05/12/18 21:00 Nasal Cannula 2.0 05/12/18 20:00 94 Nasal Cannula 2.0 28 05/12/18 20:00 90 16 Nasal Cannula 2.0 28 05/12/18 20:00 86 05/12/18 20:00 98.1 89 20 160/98 (118) 97 98.1 05/12/18 20:00 Nasal Cannula 2.0 28 05/12/18 16:50 169/104 05/12/18 16:00 87 05/12/18 16:00 98.1 91 20 169/104 (125) 97 98.1 05/12/18 12:00 97.5 89 20 179/99 (125) 97 97.5 05/12/18 12:00 88 Intake and Output 05/12/18 05/13/18 19:00 07:00 Intake Total 1440 ml 455 ml Output Total 1000 ml 2000 ml Balance 440 ml -1545 ml Intake Oral 1440 ml 400 ml IV Total 55 ml Output Urine Total 1000 ml 2000 ml # Bowel Movements 2 General Appearance: WD/WN HEENT: normocephalic, atraumatic Respiratory/Chest: chest wall non-tender, crackles/rales Cardiovascular: normal peripheral pulses, normal rate Abdomen: normal bowel sounds, soft, non tender Extremities: no cyanosis Skin: no rash 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 Microbiology Date/Time Source Procedure Growth Status 05/12/18 00:20 Urine,Clean Catch Urine Culture - Preliminary NO GROWTH Resulted Laboratory Tests 05/13/18 06:15: White Blood Count 10.0#, Red Blood Count 4.69L, Hemoglobin 7.7L, Hematocrit 29.6L, Mean Corpuscular Volume 63L, Mean Corpuscular Hemoglobin 16.5L, Mean Corpuscular Hemoglobin Concent 26.1L, Red Cell Distribution Width 17.7H, Platelet Count 190, Mean Platelet Volume 6.3L, Neutrophils (%) (Auto) , Lymphocytes (%) (Auto) , Monocytes (%) (Auto) , Eosinophils (%) (Auto) , Basophils (%) (Auto) , Differential Total Cells Counted 100, Neutrophils % ( Manual) 91H, Lymphocytes % (Manual) 3L, Monocytes % (Manual) 6, Eosinophils % ( Manual) 0, Basophils % (Manual) 0, Band Neutrophils 0, Platelet Estimate Adequate, Platelet Morphology Normal, Hypochromasia 3+, Anisocytosis 2+, Microcytosis 2+, Ovalocytes Occasional, Schistocytes Occasional, Sodium Level 135L, Potassium Level 4.1, Chloride Level 97L, Carbon Dioxide Level 35H, Anion Gap 3L, Blood Urea Nitrogen 18, Creatinine 1.3, Estimat Glomerular Filtration Rate , Glucose Level 238#H, Calcium Level 9.0, Troponin I 0.012, Pro-B-Type Natriuretic Peptide 1080H Current Medications Medications (Trade) Dose Ordered Sig/Eda Route PRN Reason Start Time Stop Time Status Last Admin Dose Admin Albuterol/ Ipratropium (Albuterol/ Ipratropium) 3 ml Q4H PRN HHN dyspnea 05/12/18 04:15 05/17/18 04:14 05/12/18 05:03 Amlodipine Besylate (Norvasc) 10 mg DAILY ORAL 05/13/18 09:00 06/12/18 08:59 05/13/18 09:04 Atorvastatin Calcium (Lipitor) 20 mg BEDTIME ORAL 05/12/18 21:00 06/11/18 20:59 05/12/18 20:42 Ceftriaxone Sodium 1 gm/ Dextrose 55 ml @ 110 mls/hr Q24H IVPB 05/12/18 20:00 05/18/18 19:59 05/12/18 20:38 Clonidine HCl (Catapres Tab) 0.1 mg EVERY 6 HOURS PRN ORAL For High Blood Pressure 05/12/18 15:15 06/11/18 15:14 05/13/18 00:47 Dextrose (Dextrose 50%) 25 ml PRN IV Hypoglycemia 05/12/18 11:15 06/11/18 11:14 Dextrose (Dextrose 50%) 50 ml PRN IV hypoglycemia 05/12/18 11:15 06/11/18 11:14 Ferrous Sulfate (Feosol) 325 mg TWICE A DAY ORAL 05/12/18 18:00 06/11/18 17:59 05/13/18 09:03 Heparin Sodium (Porcine) (Heparin 5000 units/ml) 5,000 units EVERY 12 HOURS SUBQ 05/12/18 09:00 06/11/18 08:59 05/13/18 09:06 Insulin Aspart (NovoLOG) BEFORE MEALS AND HS SUBQ 05/12/18 12:30 06/11/18 12:29 05/13/18 05:59 Lorazepam (Ativan 2mg/ml 1ml) 0.5 mg Q4H PRN IV For Anxiety 05/12/18 04:15 05/19/18 04:14 Losartan Potassium (Cozaar) 100 mg DAILY ORAL 05/13/18 09:00 06/12/18 08:59 05/13/18 09:04 Methylprednisolone Sodium Succinate (Solu-MEDROL) 60 mg EVERY 6 HOURS IV 05/12/18 06:00 06/11/18 05:59 05/13/18 05:55 Morphine Sulfate (Morphine Sulfate) 2 mg Q4H PRN IVP severe pain 7-10 05/12/18 04:15 05/19/18 04:14 Nitroglycerin (Ntg) 0.4 mg Q5M X 3 DOSES PRN SL Prn Chest Pain 05/12/18 04:15 06/11/18 04:14 Ondansetron HCl (Zofran) 4 mg Q6H PRN IVP Nausea & Vomiting 05/12/18 04:15 06/11/18 04:14 Pantoprazole (Protonix) 40 mg DAILY ORAL 05/13/18 09:00 06/12/18 08:59 05/13/18 09:04 Promethazine HCl/ Codeine (Phenergan with Codeine) 5 ml Q6H PRN ORAL cough 05/12/18 04:15 06/11/18 04:14 Temazepam (Restoril) 15 mg HSPRN PRN ORAL Insomnia 05/12/18 04:15 05/19/18 04:14 Theophylline (Luis Fernando-Dur) 100 mg EVERY 12 HOURS ORAL 05/12/18 09:00 06/11/18 08:59 05/13/18 09:03 Balta Luna MD May 13, 2018 10:47
--- NOTE | 2018-05-13 12:16 | Consultation ---
DATE OF CONSULTATION: 05/12/2018 CARDIOLOGY CONSULTATION CONSULTING PHYSICIAN: Camacho Araya M.D. REQUESTING PHYSICIAN: Bry Santiago D.O. REASON FOR CONSULTATION: Elevated natriuretic peptide assay. HISTORY OF PRESENT ILLNESS: This is a 77-year-old male. He has a history of hypertension. He presented to the emergency room with shortness of breath of one week duration, exertional capacity is diminished as well, and the patient has not noted any chest pain or leg swelling. PAST MEDICAL HISTORY: Includes COPD, type 2 diabetes mellitus, chronic anemia, chronic kidney disease, hyperlipidemia, hypertensive heart disease, atherosclerotic cardiovascular disease, history of hepatitis C, and history of AVM of the GI tract. ALLERGIES: None. FAMILY HISTORY: Noncontributory. SOCIAL HISTORY: No current smoking, alcohol, or substance abuse. REVIEW OF SYSTEMS: Otherwise unremarkable. PHYSICAL EXAMINATION: VITAL SIGNS: Blood pressure 146/92, pulse 94, respirations 20, and afebrile. NECK: Supple. LUNGS: Diminished breath sounds. Few rhonchi. CARDIAC: Regular rhythm and rate. Normal S1, S2 with a 1/6 systolic apical murmur. ABDOMEN: Soft. EXTREMITIES: No edema. The patient is lethargic. LABORATORY DATA: Natriuretic peptide 3000. Troponin 0.034. Potassium 3.4. IMPRESSION: 1. COPD exacerbation. 2. Acute on chronic diastolic congestive heart failure. 3. Hypertensive heart disease. 4. Urinary tract infection. 5. Anemia. 6. History of hepatitis C. 7. Cerebrovascular disease. PLAN: Bronchodilators. Respiratory hygiene. Nasal oxygen. Taper steroids. Diuresis to be considered. Empiric antibiotics. Optimize blood pressure control. Camacho Araya M.D. DR: KHANG JOB#: [id number] CC:
--- NOTE | 2018-05-13 12:29 | General Progress Note ---
Assessment/Plan Problem List: (1) CHF exacerbation ICD Codes: I50.9 - Heart failure, unspecified SNOMED: 67242887 Qualifiers: Qualified Codes: I50.9 - Heart failure, unspecified (2) Diabetes ICD Codes: E11.9 - Type 2 diabetes mellitus without complications SNOMED: 62717041 (3) Hypertension ICD Codes: I10 - Essential (primary) hypertension SNOMED: 35173170 (4) COPD with acute exacerbation ICD Codes: J44.1 - Chronic obstructive pulmonary disease with (acute) exacerbation SNOMED: 231602574 (5) UTI (urinary tract infection) ICD Codes: N39.0 - Urinary tract infection, site not specified SNOMED: 30984176 Qualifiers: Qualified Codes: N30.00 - Acute cystitis without hematuria Status: unchanged Assessment/Plan o2 pulm tx abx diurese ot pt diet cbc bmp am Subjective Constitutional: Reports: weakness Respiratory: Reports: shortness of breath Allergies: Coded Allergies: No Known Allergies (Unverified , 06/20/14) All Systems: reviewed and negative except above Subjective o2nc calm sitting on bed Objective Last 24 Hour Vital Signs Date Time Temp Pulse Resp B/P (MAP) Pulse Ox O2 Delivery O2 Flow Rate FiO2 05/13/18 09:04 125/79 05/13/18 09:04 91 125/79 05/13/18 09:00 Nasal Cannula 2.0 05/13/18 08:05 Nasal Cannula 2.0 28 05/13/18 08:05 98 Nasal Cannula 2.0 28 05/13/18 08:05 91 16 Nasal Cannula 2.0 28 05/13/18 08:00 97.3 86 18 125/79 (94) 97 97.3 05/13/18 04:00 98.6 89 20 154/89 (110) 97 98.6 05/13/18 04:00 91 05/13/18 00:47 160/98 05/13/18 00:00 88 05/13/18 00:00 98.1 87 20 160/98 (118) 97 98.1 05/12/18 21:00 Nasal Cannula 2.0 05/12/18 20:00 94 Nasal Cannula 2.0 28 05/12/18 20:00 90 16 Nasal Cannula 2.0 28 05/12/18 20:00 86 05/12/18 20:00 98.1 89 20 160/98 (118) 97 98.1 05/12/18 20:00 Nasal Cannula 2.0 28 05/12/18 16:50 169/104 05/12/18 16:00 87 05/12/18 16:00 98.1 91 20 169/104 (125) 97 98.1 Intake and Output 05/12/18 05/13/18 19:00 07:00 Intake Total 1440 ml 455 ml Output Total 1000 ml 2000 ml Balance 440 ml -1545 ml Intake Oral 1440 ml 400 ml IV Total 55 ml Output Urine Total 1000 ml 2000 ml # Bowel Movements 2 Laboratory Tests 05/13/18 06:15: White Blood Count 10.0#, Red Blood Count 4.69L, Hemoglobin 7.7L, Hematocrit 29.6L, Mean Corpuscular Volume 63L, Mean Corpuscular Hemoglobin 16.5L, Mean Corpuscular Hemoglobin Concent 26.1L, Red Cell Distribution Width 17.7H, Platelet Count 190, Mean Platelet Volume 6.3L, Neutrophils (%) (Auto) , Lymphocytes (%) (Auto) , Monocytes (%) (Auto) , Eosinophils (%) (Auto) , Basophils (%) (Auto) , Differential Total Cells Counted 100, Neutrophils % ( Manual) 91H, Lymphocytes % (Manual) 3L, Monocytes % (Manual) 6, Eosinophils % ( Manual) 0, Basophils % (Manual) 0, Band Neutrophils 0, Platelet Estimate Adequate, Platelet Morphology Normal, Hypochromasia 3+, Anisocytosis 2+, Microcytosis 2+, Ovalocytes Occasional, Schistocytes Occasional, Sodium Level 135L, Potassium Level 4.1, Chloride Level 97L, Carbon Dioxide Level 35H, Anion Gap 3L, Blood Urea Nitrogen 18, Creatinine 1.3, Estimat Glomerular Filtration Rate , Glucose Level 238#H, Calcium Level 9.0, Troponin I 0.012, Pro-B-Type Natriuretic Peptide 1080H Height (Feet): 5 Height (Inches): 8.00 Weight (Pounds): 211 General Appearance: lethargic EENT: normal ENT inspection Neck: normal alignment Cardiovascular: normal peripheral pulses, normal rate, regular rhythm Respiratory/Chest: chest wall non-tender, decreased breath sounds Abdomen: normal bowel sounds, non tender, soft Extremities: normal inspection Edema: no edema noted Arm (L), no edema noted Arm (R), no edema noted Leg (L), no edema noted Leg (R), no edema noted Pedal (L), no edema noted Pedal (R), no edema noted Generalized Neurologic: responsive, motor weakness Skin: normal pigmentation, warm/dry Bry Santiago DO May 13, 2018 12:29
--- NOTE | 2018-05-13 14:18 | Infectious Diseases Prog Note ---
Assessment/Plan Assessment/Plan 77 yo male with PMHx of DM and COPD who presents with SOB for the last week. # Shortness of breath - - Anemia, Congestion, COPD? Viral URI - No evidence for bacterial infection. - CXR 05/11 Nonspecific increased lung markings, most pronounced in the bases. Findings may be related to congestion or possible small airway disease/ bronchitis. - Patient stable on minimal O2 # Pyuria Patient with BPH and and mild dysuria - f/u Urine Cx - Urine culture nagitive #DM #HTN #COPD #CVA # GI bleeding secondary to AVM PLAN - Monitor off antibiotics - Stop Ceftriaxone patient asymptomatic - 05/12/18 - SP Zosyn #1 - Aspiration precautions - Monitor CBC and Temps - Thank you for consulting us for the care of this patient. We will continue to follow with you. Subjective Allergies: Coded Allergies: No Known Allergies (Unverified , 06/20/14) Objective Vital Signs Last 24 Hour Vital Signs Date Time Temp Pulse Resp B/P (MAP) Pulse Ox O2 Delivery O2 Flow Rate FiO2 05/13/18 12:00 89 05/13/18 12:00 97.5 94 18 151/90 (110) 94 97.5 05/13/18 09:04 125/79 05/13/18 09:04 91 125/79 05/13/18 09:00 Nasal Cannula 2.0 05/13/18 08:05 Nasal Cannula 2.0 28 05/13/18 08:05 98 Nasal Cannula 2.0 28 05/13/18 08:05 91 16 Nasal Cannula 2.0 28 05/13/18 08:00 97.3 86 18 125/79 (94) 97 97.3 05/13/18 08:00 100 05/13/18 04:00 98.6 89 20 154/89 (110) 97 98.6 05/13/18 04:00 91 05/13/18 00:47 160/98 05/13/18 00:00 88 05/13/18 00:00 98.1 87 20 160/98 (118) 97 98.1 05/12/18 21:00 Nasal Cannula 2.0 05/12/18 20:00 94 Nasal Cannula 2.0 28 05/12/18 20:00 90 16 Nasal Cannula 2.0 28 05/12/18 20:00 86 05/12/18 20:00 98.1 89 20 160/98 (118) 97 98.1 05/12/18 20:00 Nasal Cannula 2.0 28 05/12/18 16:50 169/104 05/12/18 16:00 87 05/12/18 16:00 98.1 91 20 169/104 (125) 97 98.1 Height (Feet): 5 Height (Inches): 8.00 Weight (Pounds): 211 Objective Gen: NAD, Large man on 2L O2 HEENT: NCAT, MMM, LUNGS: CTAB, No W/C, No Accessory muscle use CARDS: RRR, S1, S2, No M/R/G, ABD: Soft, NT, ND, + BS Ext: C/C/E, Pulses 2+ B/L (DP, Rad): NEURO: A/O x 4, Strength and Sensation Grossly intact Microbiology Date/Time Source Procedure Growth Status 05/12/18 00:20 Urine,Clean Catch Urine Culture - Preliminary NO GROWTH Resulted Laboratory Tests Test 05/13/18 06:15 White Blood Count 10.0 K/UL (4.8-10.8) # Red Blood Count 4.69 M/UL (4.70-6.10) L Hemoglobin 7.7 G/DL (14.2-18.0) L Hematocrit 29.6 % (42.0-52.0) L Mean Corpuscular Volume 63 FL (80-99) L Mean Corpuscular Hemoglobin 16.5 PG (27.0-31.0) L Mean Corpuscular Hemoglobin Concent 26.1 G/DL (32.0-36.0) L Red Cell Distribution Width 17.7 % (11.6-14.8) H Platelet Count 190 K/UL (150-450) Mean Platelet Volume 6.3 FL (6.5-10.1) L Neutrophils (%) (Auto) % (45.0-75.0) Lymphocytes (%) (Auto) % (20.0-45.0) Monocytes (%) (Auto) % (1.0-10.0) Eosinophils (%) (Auto) % (0.0-3.0) Basophils (%) (Auto) % (0.0-2.0) Differential Total Cells Counted 100 Neutrophils % (Manual) 91 % (45-75) H Lymphocytes % (Manual) 3 % (20-45) L Monocytes % (Manual) 6 % (1-10) Eosinophils % (Manual) 0 % (0-3) Basophils % (Manual) 0 % (0-2) Band Neutrophils 0 % (0-8) Platelet Estimate Adequate Platelet Morphology Normal Hypochromasia 3+ Anisocytosis 2+ Microcytosis 2+ Ovalocytes Occasional Schistocytes Occasional Sodium Level 135 MMOL/L (136-145) L Potassium Level 4.1 MMOL/L (3.5-5.1) Chloride Level 97 MMOL/L (98-107) L Carbon Dioxide Level 35 MMOL/L (21-32) H Anion Gap 3 mmol/L (5-15) L Blood Urea Nitrogen 18 mg/dL (7-18) Creatinine 1.3 MG/DL (0.55-1.30) Estimat Glomerular Filtration Rate mL/min (>60) Glucose Level 238 MG/DL (74-106) #H Calcium Level 9.0 MG/DL (8.5-10.1) Troponin I 0.012 ng/mL (0.000-0.056) Pro-B-Type Natriuretic Peptide 1080 pg/mL (0-125) H Current Medications Medications (Trade) Dose Ordered Sig/Eda Route PRN Reason Start Time Stop Time Status Last Admin Dose Admin Albuterol/ Ipratropium (Albuterol/ Ipratropium) 3 ml Q4H PRN HHN dyspnea 05/12/18 04:15 05/17/18 04:14 05/12/18 05:03 Amlodipine Besylate (Norvasc) 10 mg DAILY ORAL 05/13/18 09:00 06/12/18 08:59 05/13/18 09:04 Atorvastatin Calcium (Lipitor) 20 mg BEDTIME ORAL 05/12/18 21:00 06/11/18 20:59 05/12/18 20:42 Ceftriaxone Sodium 1 gm/ Dextrose 55 ml @ 110 mls/hr Q24H IVPB 05/12/18 20:00 05/18/18 19:59 05/12/18 20:38 Clonidine HCl (Catapres Tab) 0.1 mg EVERY 6 HOURS PRN ORAL For High Blood Pressure 05/12/18 15:15 06/11/18 15:14 05/13/18 00:47 Dextrose (Dextrose 50%) 25 ml PRN IV Hypoglycemia 05/12/18 11:15 06/11/18 11:14 Dextrose (Dextrose 50%) 50 ml PRN IV hypoglycemia 05/12/18 11:15 06/11/18 11:14 Ferrous Sulfate (Feosol) 325 mg TWICE A DAY ORAL 05/12/18 18:00 06/11/18 17:59 05/13/18 09:03 Heparin Sodium (Porcine) (Heparin 5000 units/ml) 5,000 units EVERY 12 HOURS SUBQ 05/12/18 09:00 06/11/18 08:59 05/13/18 09:06 Insulin Aspart (NovoLOG) BEFORE MEALS AND HS SUBQ 05/12/18 12:30 06/11/18 12:29 05/13/18 11:58 Lorazepam (Ativan 2mg/ml 1ml) 0.5 mg Q4H PRN IV For Anxiety 05/12/18 04:15 05/19/18 04:14 Losartan Potassium (Cozaar) 100 mg DAILY ORAL 05/13/18 09:00 06/12/18 08:59 05/13/18 09:04 Methylprednisolone Sodium Succinate (Solu-MEDROL) 60 mg DAILY IV 05/14/18 09:00 06/11/18 05:59 Morphine Sulfate (Morphine Sulfate) 2 mg Q4H PRN IVP severe pain 7-10 05/12/18 04:15 05/19/18 04:14 Nitroglycerin (Ntg) 0.4 mg Q5M X 3 DOSES PRN SL Prn Chest Pain 05/12/18 04:15 06/11/18 04:14 Ondansetron HCl (Zofran) 4 mg Q6H PRN IVP Nausea & Vomiting 05/12/18 04:15 06/11/18 04:14 Pantoprazole (Protonix) 40 mg DAILY ORAL 05/13/18 09:00 06/12/18 08:59 05/13/18 09:04 Promethazine HCl/ Codeine (Phenergan with Codeine) 5 ml Q6H PRN ORAL cough 05/12/18 04:15 06/11/18 04:14 Temazepam (Restoril) 15 mg HSPRN PRN ORAL Insomnia 05/12/18 04:15 05/19/18 04:14 Theophylline (Luis Fernando-Dur) 100 mg EVERY 12 HOURS ORAL 05/12/18 09:00 06/11/18 08:59 05/13/18 09:03 Camacho Lan M.D. May 13, 2018 14:18
--- NOTE | 2018-05-13 16:08 | Cardiology Report ---
APPROVED REPORT EKG Measurement Heart [id number] HI [id number] Sinus tachycardia with premature atrial complexes Left axis deviation Nonspecific ST and T wave abnormality Abnormal ECG
[2018-05-13] MEDS: Atorvastatin 20mg tab ORAL SCH (20:53)
[2018-05-14] VITALS (7 sets, daily range): BP systolic 106–150; BP diastolic 68–94
--- NOTE | 2018-05-14 04:00 | Progress Note ---
DATE: 05/13/2018 CARDIOLOGY PROGRESS NOTE SUBJECTIVE: The patient is on antibiotics. Continues with diuresis. Still with shortness of breath and weakness. OBJECTIVE: VITAL SIGNS: Blood pressure 159/89, pulse 96, respirations 20, and afebrile. LUNGS: Coarse breath sounds. Scattered rhonchi. HEART: Regular rhythm and rate. Normal S1, S2 with a fourth heart sound. ABDOMEN: Soft. EXTREMITIES: No edema. LABORATORY DATA: White count 10 and hemoglobin 7.7. Sodium 135, potassium 4.1, bicarbonate 35, BUN 18, and creatinine 1.3. Troponin negative. Pro-natriuretic peptide decreased to 1080. Glucose 238. IMPRESSION: 1. Chronic obstructive pulmonary disease with acute exacerbation. 2. Anemia. 3. History of arteriovenous malformation and gastrointestinal bleed. 4. Acute on chronic diastolic congestive heart failure. 5. Hypertensive heart disease with labile blood pressure. PLAN: 1. Steroid taper. 2. Diuresis based on clinical parameters. 3. Titrate antihypertensive regimen. 4. Bronchodilators, respiratory hygiene, and DVT prophylaxis. 5. Continue cardiac monitoring. 6. Follow up chest x-ray. Camacho Araya M.D. DR: MANAS JOB#: [id number] CC:
[2018-05-14] MEDS: NovoLOG Insulin Flexpen SUBQ SCH ×4 (06:30→21:45)
[2018-05-14 07:43] LABS: HEMATOCRIT 32.2 % (42.0-52.0); HEMOGLOBIN 8.9 G/DL (14.2-18.0); MEAN CORPUSCULAR VOLUME 65 FL (80-99); PLATELET COUNT 186 K/UL (150-450); RED BLOOD COUNT 4.92 M/UL (4.70-6.10); RED CELL DISTRIBUTION WIDTH 18.9 % (11.6-14.8)
[2018-05-14 08:23] LABS: ALANINE AMINOTRANSFERASE 23 U/L (12-78); ALBUMIN 3.4 G/DL (3.4-5.0); ALBUMIN/GLOBULIN RATIO 0.9 (1.0-2.7); ALKALINE PHOSPHATASE 47 U/L (46-116); ANION GAP 1 mmol/L (5-15); ASPARTATE AMINO TRANSFERASE 16 U/L (15-37); BILIRUBIN,TOTAL 0.8 MG/DL (0.2-1.0); BLOOD UREA NITROGEN 21 mg/dL (7-18); CALCIUM 9.5 MG/DL (8.5-10.1); CARBON DIOXIDE 36 MMOL/L (21-32); CHLORIDE 101 MMOL/L (98-107); CREATININE 1.1 MG/DL (0.55-1.30); POTASSIUM 4.4 MMOL/L (3.5-5.1); SODIUM 137 MMOL/L (136-145)
[2018-05-14] MEDS ORDERED: Solu-MEDROL 125mg Inj IV SCH (09:00)
[2018-05-14] MEDS: Theophylline ER 100mg ORAL SCH ×2 (09:22→21:41)
[2018-05-14] MEDS: Losartan 50mg tab ORAL SCH (09:23)
[2018-05-14] MEDS: Imdur 30mg tab ORAL SCH (09:23)
[2018-05-14] MEDS: Heparin 5000 units/ml inj SUBQ SCH ×2 (09:26→21:00)
--- NOTE | 2018-05-14 10:27 | Infectious Diseases Prog Note ---
Assessment/Plan Assessment/Plan 77 yo male with PMHx of DM and COPD who presents with SOB for the last week. # Shortness of breath - - Anemia, Congestion, COPD? Viral URI - No evidence for bacterial infection. - CXR 05/11 Nonspecific increased lung markings, most pronounced in the bases. Findings may be related to congestion or possible small airway disease/ bronchitis. - Patient stable on minimal O2 # Pyuria Patient with BPH and and mild dysuria - f/u Urine Cx - Urine culture nagitive #DM #HTN #COPD #CVA # GI bleeding secondary to AVM PLAN - Continue to monitor off antibiotics - Stop Ceftriaxone patient asymptomatic - 05/12/18 - SP Zosyn #1 - Aspiration precautions - Monitor CBC and Temps - Thank you for consulting us for the care of this patient. We will continue to follow with you. Subjective Allergies: Coded Allergies: No Known Allergies (Unverified , 06/20/14) Subjective No acute everts over night No N/V/D or Fever Objective Vital Signs Last 24 Hour Vital Signs Date Time Temp Pulse Resp B/P (MAP) Pulse Ox O2 Delivery O2 Flow Rate FiO2 05/14/18 09:23 150/94 05/14/18 09:23 150/94 05/14/18 09:23 106 150/94 05/14/18 09:00 Nasal Cannula 2.0 05/14/18 08:26 97.6 106 19 150/94 (112) 99 97.6 05/14/18 04:00 97.5 101 20 120/69 (86) 98 97.5 05/14/18 04:00 113 05/14/18 00:00 97.6 111 20 144/80 (101) 98 97.6 05/14/18 00:00 107 05/13/18 21:30 97.7 87 141/92 (108) 97.7 05/13/18 21:00 Nasal Cannula 2.0 05/13/18 20:00 97 05/13/18 20:00 97.9 96 20 159/89 (112) 98 97.9 05/13/18 19:00 Nasal Cannula 2.0 28 05/13/18 19:00 97 Nasal Cannula 2.0 28 05/13/18 19:00 103 20 Nasal Cannula 2.0 28 05/13/18 16:00 98 05/13/18 16:00 97.7 74 18 107/59 (75) 94 97.7 05/13/18 12:00 89 05/13/18 12:00 97.5 94 18 151/90 (110) 94 97.5 Height (Feet): 5 Height (Inches): 8.00 Weight (Pounds): 220 Objective Gen: NAD, Large man on 2L O2 HEENT: NCAT, MMM, EOMI, PERRL LUNGS: CTAB, No W/C, No Accessory muscle use CARDS: RRR, S1, S2, No M/R/G, ABD: Soft, NT, ND, + BS Ext: C/C/E, Pulses 2+ B/L (DP, Rad): NEURO: A/O x 4, Strength and Sensation Grossly intact Microbiology Date/Time Source Procedure Growth Status 05/12/18 00:20 Urine,Clean Catch Urine Culture - Preliminary Mixed Gram Positive Organism Resulted Laboratory Tests Test 05/14/18 07:05 White Blood Count 21.0 K/UL (4.8-10.8) #H Red Blood Count 4.92 M/UL (4.70-6.10) Hemoglobin 8.9 G/DL (14.2-18.0) L Hematocrit 32.2 % (42.0-52.0) L Mean Corpuscular Volume 65 FL (80-99) L Mean Corpuscular Hemoglobin 18.0 PG (27.0-31.0) L Mean Corpuscular Hemoglobin Concent 27.5 G/DL (32.0-36.0) L Red Cell Distribution Width 18.9 % (11.6-14.8) H Platelet Count 186 K/UL (150-450) Mean Platelet Volume 5.6 FL (6.5-10.1) L Neutrophils (%) (Auto) % (45.0-75.0) Lymphocytes (%) (Auto) % (20.0-45.0) Monocytes (%) (Auto) % (1.0-10.0) Eosinophils (%) (Auto) % (0.0-3.0) Basophils (%) (Auto) % (0.0-2.0) Differential Total Cells Counted 100 Neutrophils % (Manual) 88 % (45-75) H Lymphocytes % (Manual) 4 % (20-45) L Monocytes % (Manual) 7 % (1-10) Eosinophils % (Manual) 0 % (0-3) Basophils % (Manual) 0 % (0-2) Band Neutrophils 1 % (0-8) Nucleated Red Blood Cells 1 /100 WBC Platelet Estimate Adequate Platelet Morphology Normal Hypochromasia 3+ Anisocytosis 2+ Microcytosis 2+ Ovalocytes Occasional Sodium Level 137 MMOL/L (136-145) Potassium Level 4.4 MMOL/L (3.5-5.1) Chloride Level 101 MMOL/L (98-107) Carbon Dioxide Level 36 MMOL/L (21-32) H Anion Gap 1 mmol/L (5-15) L Blood Urea Nitrogen 21 mg/dL (7-18) H Creatinine 1.1 MG/DL (0.55-1.30) Estimat Glomerular Filtration Rate mL/min (>60) Glucose Level 173 MG/DL (74-106) H Calcium Level 9.5 MG/DL (8.5-10.1) Total Bilirubin 0.8 MG/DL (0.2-1.0) Aspartate Amino Transf (AST/SGOT) 16 U/L (15-37) Alanine Aminotransferase (ALT/SGPT) 23 U/L (12-78) Alkaline Phosphatase 47 U/L (46-116) Pro-B-Type Natriuretic Peptide 1050 pg/mL (0-125) H Total Protein 7.4 G/DL (6.4-8.2) Albumin 3.4 G/DL (3.4-5.0) Globulin 4.0 g/dL Albumin/Globulin Ratio 0.9 (1.0-2.7) L Current Medications Medications (Trade) Dose Ordered Sig/Eda Route PRN Reason Start Time Stop Time Status Last Admin Dose Admin Albuterol/ Ipratropium (Albuterol/ Ipratropium) 3 ml Q4H PRN HHN dyspnea 05/12/18 04:15 05/17/18 04:14 05/12/18 05:03 Amlodipine Besylate (Norvasc) 10 mg DAILY ORAL 05/13/18 09:00 06/12/18 08:59 05/14/18 09:23 Atorvastatin Calcium (Lipitor) 20 mg BEDTIME ORAL 05/12/18 21:00 06/11/18 20:59 05/13/18 20:53 Clonidine HCl (Catapres Tab) 0.1 mg EVERY 6 HOURS PRN ORAL For High Blood Pressure 05/12/18 15:15 06/11/18 15:14 05/13/18 00:47 Dextrose (Dextrose 50%) 25 ml PRN IV Hypoglycemia 05/12/18 11:15 06/11/18 11:14 Dextrose (Dextrose 50%) 50 ml PRN IV hypoglycemia 05/12/18 11:15 06/11/18 11:14 Ferrous Sulfate (Feosol) 325 mg TWICE A DAY ORAL 05/12/18 18:00 06/11/18 17:59 05/14/18 09:22 Heparin Sodium (Porcine) (Heparin 5000 units/ml) 5,000 units EVERY 12 HOURS SUBQ 05/12/18 09:00 06/11/18 08:59 05/14/18 09:26 Insulin Aspart (NovoLOG) BEFORE MEALS AND HS SUBQ 05/12/18 12:30 06/11/18 12:29 05/14/18 06:30 Isosorbide Mononitrate (Imdur) 30 mg DAILY ORAL 05/14/18 09:00 06/13/18 08:59 05/14/18 09:23 Lorazepam (Ativan 2mg/ml 1ml) 0.5 mg Q4H PRN IV For Anxiety 05/12/18 04:15 05/19/18 04:14 Losartan Potassium (Cozaar) 100 mg DAILY ORAL 05/13/18 09:00 06/12/18 08:59 05/14/18 09:23 Methylprednisolone Sodium Succinate (Solu-MEDROL) 60 mg DAILY IV 05/14/18 09:00 06/11/18 05:59 05/14/18 09:23 Morphine Sulfate (Morphine Sulfate) 2 mg Q4H PRN IVP severe pain 7-10 05/12/18 04:15 05/19/18 04:14 Nitroglycerin (Ntg) 0.4 mg Q5M X 3 DOSES PRN SL Prn Chest Pain 05/12/18 04:15 06/11/18 04:14 Ondansetron HCl (Zofran) 4 mg Q6H PRN IVP Nausea & Vomiting 05/12/18 04:15 06/11/18 04:14 Pantoprazole (Protonix) 40 mg DAILY ORAL 05/13/18 09:00 06/12/18 08:59 05/14/18 09:23 Promethazine HCl/ Codeine (Phenergan with Codeine) 5 ml Q6H PRN ORAL cough 05/12/18 04:15 06/11/18 04:14 Temazepam (Restoril) 15 mg HSPRN PRN ORAL Insomnia 05/12/18 04:15 05/19/18 04:14 Theophylline (Luis Fernando-Dur) 100 mg EVERY 12 HOURS ORAL 05/12/18 09:00 06/11/18 08:59 05/14/18 09:22 Camacho Lan M.D. May 14, 2018 10:27
--- NOTE | 2018-05-14 12:37 | Pulmonology Progress Note ---
Assessment/Plan Problems: (1) COPD with acute exacerbation (2) Pulmonary nodule (3) AVM (arteriovenous malformation) (4) Iron deficiency (5) Diabetes (6) Hepatitis C (7) Hypertension Assessment/Plan taper steroids, switch to PO cardiac evaluation respiratory treatment prbc prn, one unit last night pt might need resection of AVM malformation in small intestine Subjective ROS Limited/Unobtainable: No Constitutional: Reports: no symptoms HEENT: Repors: no symptoms Respiratory: Reports: no symptoms Cardiovascular: Reports: no symptoms Gastrointestinal/Abdominal: Reports: no symptoms Allergies: Coded Allergies: No Known Allergies (Unverified , 06/20/14) Objective Last 24 Hour Vital Signs Date Time Temp Pulse Resp B/P (MAP) Pulse Ox O2 Delivery O2 Flow Rate FiO2 05/14/18 09:23 150/94 05/14/18 09:23 150/94 05/14/18 09:23 106 150/94 05/14/18 09:00 Nasal Cannula 2.0 05/14/18 08:26 97.6 106 19 150/94 (112) 99 97.6 05/14/18 08:10 98 Nasal Cannula 2.0 28 05/14/18 08:10 94 20 Nasal Cannula 2.0 28 05/14/18 08:10 Nasal Cannula 2.0 28 05/14/18 04:00 97.5 101 20 120/69 (86) 98 97.5 05/14/18 04:00 113 05/14/18 00:00 97.6 111 20 144/80 (101) 98 97.6 05/14/18 00:00 107 05/13/18 21:30 97.7 87 141/92 (108) 97.7 05/13/18 21:00 Nasal Cannula 2.0 05/13/18 20:00 97 05/13/18 20:00 97.9 96 20 159/89 (112) 98 97.9 05/13/18 19:00 Nasal Cannula 2.0 28 05/13/18 19:00 97 Nasal Cannula 2.0 28 05/13/18 19:00 103 20 Nasal Cannula 2.0 28 05/13/18 16:00 98 05/13/18 16:00 97.7 74 18 107/59 (75) 94 97.7 Intake and Output 05/13/18 05/14/18 19:00 07:00 Intake Total 480 ml 730 ml Output Total 1200 ml Balance 480 ml -470 ml Intake Oral 480 ml 480 ml Blood Product 250 ml Output Urine Total 1200 ml # Voids 4 # Bowel Movements 1 General Appearance: WD/WN HEENT: normocephalic, mucous membranes moist Respiratory/Chest: chest wall non-tender, lungs clear Cardiovascular: normal peripheral pulses, normal rate Abdomen: normal bowel sounds, no organomegaly Extremities: no cyanosis Neurologic/Psychiatric: accounts manager 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 Microbiology Date/Time Source Procedure Growth Status 05/12/18 00:20 Urine,Clean Catch Urine Culture - Preliminary Mixed Gram Positive Organism Resulted Laboratory Tests 05/14/18 07:05: White Blood Count 21.0#H, Red Blood Count 4.92, Hemoglobin 8.9L, Hematocrit 32.2L, Mean Corpuscular Volume 65L, Mean Corpuscular Hemoglobin 18.0L, Mean Corpuscular Hemoglobin Concent 27.5L, Red Cell Distribution Width 18.9H, Platelet Count 186, Mean Platelet Volume 5.6L, Neutrophils (%) (Auto) , Lymphocytes (%) (Auto) , Monocytes (%) (Auto) , Eosinophils (%) (Auto) , Basophils (%) (Auto) , Differential Total Cells Counted 100, Neutrophils % ( Manual) 88H, Lymphocytes % (Manual) 4L, Monocytes % (Manual) 7, Eosinophils % ( Manual) 0, Basophils % (Manual) 0, Band Neutrophils 1, Nucleated Red Blood Cells 1, Platelet Estimate Adequate, Platelet Morphology Normal, Hypochromasia 3 +, Anisocytosis 2+, Microcytosis 2+, Ovalocytes Occasional, Sodium Level 137, Potassium Level 4.4, Chloride Level 101, Carbon Dioxide Level 36H, Anion Gap 1L , Blood Urea Nitrogen 21H, Creatinine 1.1, Estimat Glomerular Filtration Rate , Glucose Level 173H, Calcium Level 9.5, Total Bilirubin 0.8, Aspartate Amino Transf (AST/SGOT) 16, Alanine Aminotransferase (ALT/SGPT) 23, Alkaline Phosphatase 47, Pro-B-Type Natriuretic Peptide 1050H, Total Protein 7.4, Albumin 3.4, Globulin 4.0, Albumin/Globulin Ratio 0.9L Current Medications Medications (Trade) Dose Ordered Sig/Eda Route PRN Reason Start Time Stop Time Status Last Admin Dose Admin Albuterol/ Ipratropium (Albuterol/ Ipratropium) 3 ml Q4H PRN HHN dyspnea 05/12/18 04:15 05/17/18 04:14 05/12/18 05:03 Amlodipine Besylate (Norvasc) 10 mg DAILY ORAL 05/13/18 09:00 06/12/18 08:59 05/14/18 09:23 Atorvastatin Calcium (Lipitor) 20 mg BEDTIME ORAL 05/12/18 21:00 06/11/18 20:59 05/13/18 20:53 Clonidine HCl (Catapres Tab) 0.1 mg EVERY 6 HOURS PRN ORAL For High Blood Pressure 05/12/18 15:15 06/11/18 15:14 05/13/18 00:47 Dextrose (Dextrose 50%) 25 ml PRN IV Hypoglycemia 05/12/18 11:15 06/11/18 11:14 Dextrose (Dextrose 50%) 50 ml PRN IV hypoglycemia 05/12/18 11:15 06/11/18 11:14 Ferrous Sulfate (Feosol) 325 mg TWICE A DAY ORAL 05/12/18 18:00 06/11/18 17:59 05/14/18 09:22 Heparin Sodium (Porcine) (Heparin 5000 units/ml) 5,000 units EVERY 12 HOURS SUBQ 05/12/18 09:00 06/11/18 08:59 05/14/18 09:26 Insulin Aspart (NovoLOG) BEFORE MEALS AND HS SUBQ 05/12/18 12:30 06/11/18 12:29 05/14/18 11:24 Isosorbide Mononitrate (Imdur) 30 mg DAILY ORAL 05/14/18 09:00 06/13/18 08:59 05/14/18 09:23 Lorazepam (Ativan 2mg/ml 1ml) 0.5 mg Q4H PRN IV For Anxiety 05/12/18 04:15 05/19/18 04:14 Losartan Potassium (Cozaar) 100 mg DAILY ORAL 05/13/18 09:00 06/12/18 08:59 05/14/18 09:23 Methylprednisolone Sodium Succinate (Solu-MEDROL) 60 mg DAILY IV 05/14/18 09:00 06/11/18 05:59 05/14/18 09:23 Morphine Sulfate (Morphine Sulfate) 2 mg Q4H PRN IVP severe pain 7-10 05/12/18 04:15 05/19/18 04:14 Nitroglycerin (Ntg) 0.4 mg Q5M X 3 DOSES PRN SL Prn Chest Pain 05/12/18 04:15 06/11/18 04:14 Ondansetron HCl (Zofran) 4 mg Q6H PRN IVP Nausea & Vomiting 05/12/18 04:15 06/11/18 04:14 Pantoprazole (Protonix) 40 mg DAILY ORAL 05/13/18 09:00 06/12/18 08:59 05/14/18 09:23 Promethazine HCl/ Codeine (Phenergan with Codeine) 5 ml Q6H PRN ORAL cough 05/12/18 04:15 06/11/18 04:14 Temazepam (Restoril) 15 mg HSPRN PRN ORAL Insomnia 05/12/18 04:15 05/19/18 04:14 Theophylline (Luis Fernando-Dur) 100 mg EVERY 12 HOURS ORAL 05/12/18 09:00 06/11/18 08:59 05/14/18 09:22 Balta Luna MD May 14, 2018 12:37
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
--- NOTE | 2018-05-14 14:05 | General Progress Note ---
Assessment/Plan Problem List: (1) CHF exacerbation ICD Codes: I50.9 - Heart failure, unspecified SNOMED: 91693916 Qualifiers: Qualified Codes: I50.9 - Heart failure, unspecified (2) Diabetes ICD Codes: E11.9 - Type 2 diabetes mellitus without complications SNOMED: 10038058 (3) Hypertension ICD Codes: I10 - Essential (primary) hypertension SNOMED: 18433352 (4) COPD with acute exacerbation ICD Codes: J44.1 - Chronic obstructive pulmonary disease with (acute) exacerbation SNOMED: 339638539 (5) UTI (urinary tract infection) ICD Codes: N39.0 - Urinary tract infection, site not specified SNOMED: 56014292 Qualifiers: Qualified Codes: N30.00 - Acute cystitis without hematuria Status: stable, progressing Assessment/Plan o2 pulm tx abx diurese ot pt diet cbc bmp am dc plan w hh Subjective Constitutional: Reports: weakness Respiratory: Reports: shortness of breath Allergies: Coded Allergies: No Known Allergies (Unverified , 06/20/14) All Systems: reviewed and negative except above Subjective o2nc calm sitting on bed Objective Last 24 Hour Vital Signs Date Time Temp Pulse Resp B/P (MAP) Pulse Ox O2 Delivery O2 Flow Rate FiO2 05/14/18 12:00 82 05/14/18 12:00 97.5 88 18 134/85 (101) 98 97.5 05/14/18 11:59 97.3 68 20 106/72 (83) 98 97.3 05/14/18 09:23 150/94 05/14/18 09:23 150/94 05/14/18 09:23 106 150/94 05/14/18 09:00 Nasal Cannula 2.0 05/14/18 08:26 97.6 106 19 150/94 (112) 99 97.6 05/14/18 08:10 98 Nasal Cannula 2.0 28 05/14/18 08:10 94 20 Nasal Cannula 2.0 28 05/14/18 08:10 Nasal Cannula 2.0 28 05/14/18 08:00 106 05/14/18 04:00 97.5 101 20 120/69 (86) 98 97.5 05/14/18 04:00 113 05/14/18 00:00 97.6 111 20 144/80 (101) 98 97.6 05/14/18 00:00 107 05/13/18 21:30 97.7 87 141/92 (108) 97.7 05/13/18 21:00 Nasal Cannula 2.0 05/13/18 20:00 97 05/13/18 20:00 97.9 96 20 159/89 (112) 98 97.9 05/13/18 19:00 Nasal Cannula 2.0 28 05/13/18 19:00 97 Nasal Cannula 2.0 28 05/13/18 19:00 103 20 Nasal Cannula 2.0 28 05/13/18 16:00 98 05/13/18 16:00 97.7 74 18 107/59 (75) 94 97.7 Intake and Output 05/13/18 05/14/18 19:00 07:00 Intake Total 480 ml 730 ml Output Total 1200 ml Balance 480 ml -470 ml Intake Oral 480 ml 480 ml Blood Product 250 ml Output Urine Total 1200 ml # Voids 4 # Bowel Movements 1 Laboratory Tests 05/14/18 07:05: White Blood Count 21.0#H, Red Blood Count 4.92, Hemoglobin 8.9L, Hematocrit 32.2L, Mean Corpuscular Volume 65L, Mean Corpuscular Hemoglobin 18.0L, Mean Corpuscular Hemoglobin Concent 27.5L, Red Cell Distribution Width 18.9H, Platelet Count 186, Mean Platelet Volume 5.6L, Neutrophils (%) (Auto) , Lymphocytes (%) (Auto) , Monocytes (%) (Auto) , Eosinophils (%) (Auto) , Basophils (%) (Auto) , Differential Total Cells Counted 100, Neutrophils % ( Manual) 88H, Lymphocytes % (Manual) 4L, Monocytes % (Manual) 7, Eosinophils % ( Manual) 0, Basophils % (Manual) 0, Band Neutrophils 1, Nucleated Red Blood Cells 1, Platelet Estimate Adequate, Platelet Morphology Normal, Hypochromasia 3 +, Anisocytosis 2+, Microcytosis 2+, Ovalocytes Occasional, Sodium Level 137, Potassium Level 4.4, Chloride Level 101, Carbon Dioxide Level 36H, Anion Gap 1L , Blood Urea Nitrogen 21H, Creatinine 1.1, Estimat Glomerular Filtration Rate , Glucose Level 173H, Calcium Level 9.5, Total Bilirubin 0.8, Aspartate Amino Transf (AST/SGOT) 16, Alanine Aminotransferase (ALT/SGPT) 23, Alkaline Phosphatase 47, Pro-B-Type Natriuretic Peptide 1050H, Total Protein 7.4, Albumin 3.4, Globulin 4.0, Albumin/Globulin Ratio 0.9L Height (Feet): 5 Height (Inches): 8.00 Weight (Pounds): 220 General Appearance: lethargic EENT: normal ENT inspection Neck: normal alignment Cardiovascular: normal peripheral pulses, normal rate, regular rhythm Respiratory/Chest: chest wall non-tender, decreased breath sounds Abdomen: normal bowel sounds, non tender, soft Extremities: normal inspection Edema: no edema noted Arm (L), no edema noted Arm (R), no edema noted Leg (L), no edema noted Leg (R), no edema noted Pedal (L), no edema noted Pedal (R), no edema noted Generalized Neurologic: responsive, motor weakness Skin: normal pigmentation, warm/dry Bry Santiago DO May 14, 2018 14:05
[2018-05-14] MEDS: Atorvastatin 20mg tab ORAL SCH (21:40)
[2018-05-15] VITALS: BP 137/83
[2018-05-15 04:00] VITALS: BP 158/90
[2018-05-15] MEDS: NovoLOG Insulin Flexpen SUBQ SCH ×4 (06:14→21:21)
[2018-05-15 07:53] LABS: BLOOD UREA NITROGEN 21 mg/dL (7-18); CARBON DIOXIDE 36 MMOL/L (21-32); CHLORIDE 101 MMOL/L (98-107); CREATININE 1.2 MG/DL (0.55-1.30); HEMATOCRIT 29.4 % (42.0-52.0); HEMOGLOBIN 8.2 G/DL (14.2-18.0); MEAN CORPUSCULAR VOLUME 64 FL (80-99); PLATELET COUNT 186 K/UL (150-450); POTASSIUM 4.3 MMOL/L (3.5-5.1); RED BLOOD COUNT 4.57 M/UL (4.70-6.10); RED CELL DISTRIBUTION WIDTH 18.9 % (11.6-14.8); SODIUM 136 MMOL/L (136-145); WHITE BLOOD COUNT 15.8 K/UL (4.8-10.8)
[2018-05-15 08:00] VITALS: BP 159/89
[2018-05-15] MEDS: Theophylline ER 100mg ORAL SCH ×2 (08:45→21:18)
[2018-05-15] MEDS: Imdur 30mg tab ORAL SCH (08:46)
[2018-05-15] MEDS: Heparin 5000 units/ml inj SUBQ SCH ×2 (08:51→21:20)
[2018-05-15] MEDS: Losartan 50mg tab ORAL SCH (08:53)
[2018-05-15] MEDS: Albuterol/Ipratropium 3ml neb HHN PRN (09:31)
--- NOTE | 2018-05-15 09:34 | Infectious Diseases Prog Note ---
Assessment/Plan Assessment/Plan 77 yo male with PMHx of DM and COPD who presents with SOB for the last week. # Shortness of breath - - Anemia, Congestion, COPD? Viral URI - No evidence for bacterial infection. - CXR 05/11 Nonspecific increased lung markings, most pronounced in the bases. Findings may be related to congestion or possible small airway disease/ bronchitis. - Patient stable on minimal O2 # Pyuria Patient with BPH and and mild dysuria - f/u Urine Cx - Urine culture nagitive #DM #HTN #COPD #CVA # GI bleeding secondary to AVM PLAN - Continue to monitor off antibiotics as he has no sign of infection. - Stop Ceftriaxone patient asymptomatic - 05/12/18 - SP Zosyn #1 - Aspiration precautions - Monitor CBC and Temps - Thank you for consulting us for the care of this patient. We will continue to follow with you. Subjective Allergies: Coded Allergies: No Known Allergies (Unverified , 06/20/14) Subjective No acute everts over night Patient stable on 2L O2 He uses 2L intermittently at home. Objective Vital Signs Last 24 Hour Vital Signs Date Time Temp Pulse Resp B/P (MAP) Pulse Ox O2 Delivery O2 Flow Rate FiO2 05/15/18 09:31 110 10 97 Nasal Cannula 2.0 28 05/15/18 09:30 97 Nasal Cannula 2.0 28 05/15/18 09:30 110 20 Nasal Cannula 2.0 28 05/15/18 09:30 Nasal Cannula 2.0 28 05/15/18 08:53 159/89 05/15/18 08:46 159/89 05/15/18 08:46 100 159/89 05/15/18 08:00 98.6 100 20 159/89 (112) 95 98.6 05/15/18 04:00 94 05/15/18 04:00 97.8 94 18 158/90 (112) 95 97.8 05/15/18 00:00 97 05/15/18 00:00 97.8 94 18 137/83 (101) 96 97.8 05/14/18 21:00 Nasal Cannula 2.0 05/14/18 20:00 98.1 94 18 122/75 (91) 96 98.1 05/14/18 20:00 93 05/14/18 19:00 Nasal Cannula 2.0 28 05/14/18 19:00 90 18 Nasal Cannula 2.0 28 05/14/18 19:00 97 Nasal Cannula 2.0 28 05/14/18 16:00 107 05/14/18 16:00 98.6 93 20 118/68 (85) 98 98.6 05/14/18 12:00 82 05/14/18 12:00 97.5 88 18 134/85 (101) 98 97.5 05/14/18 11:59 97.3 68 20 106/72 (83) 98 97.3 Height (Feet): 5 Height (Inches): 8.00 Weight (Pounds): 225 Objective Gen: NAD, HEENT: NCAT, MMM, EOMI, LUNGS: CTAB, No W/C CARDS: RRR, S1, S2, No M/R/G, ABD: Soft, NT, ND, + BS Ext: No C/C/E, Pulses 2+ B/L (DP, Rad): NEURO: A/O x 4, Strength and Sensation Grossly intact Microbiology Date/Time Source Procedure Growth Status 05/14/18 08:20 Sputum Expectorated Gram Stain Pending Resulted 05/14/18 08:20 Sputum Expectorated Sputum Culture - Preliminary Resulted Laboratory Tests Test 05/15/18 06:40 White Blood Count 15.8 K/UL (4.8-10.8) H Red Blood Count 4.57 M/UL (4.70-6.10) L Hemoglobin 8.2 G/DL (14.2-18.0) L Hematocrit 29.4 % (42.0-52.0) L Mean Corpuscular Volume 64 FL (80-99) L Mean Corpuscular Hemoglobin 18.0 PG (27.0-31.0) L Mean Corpuscular Hemoglobin Concent 28.0 G/DL (32.0-36.0) L Red Cell Distribution Width 18.9 % (11.6-14.8) H Platelet Count 186 K/UL (150-450) Mean Platelet Volume 6.7 FL (6.5-10.1) Neutrophils (%) (Auto) % (45.0-75.0) Lymphocytes (%) (Auto) % (20.0-45.0) Monocytes (%) (Auto) % (1.0-10.0) Eosinophils (%) (Auto) % (0.0-3.0) Basophils (%) (Auto) % (0.0-2.0) Differential Total Cells Counted 100 Neutrophils % (Manual) 93 % (45-75) H Lymphocytes % (Manual) 3 % (20-45) L Monocytes % (Manual) 4 % (1-10) Eosinophils % (Manual) 0 % (0-3) Basophils % (Manual) 0 % (0-2) Band Neutrophils 0 % (0-8) Nucleated Red Blood Cells 1 /100 WBC Platelet Estimate Adequate Platelet Morphology Normal Hypochromasia 2+ Anisocytosis 1+ Ovalocytes 1+ Acanthocytes 1+ Schistocytes 1+ Sodium Level 136 MMOL/L (136-145) Potassium Level 4.3 MMOL/L (3.5-5.1) Chloride Level 101 MMOL/L (98-107) Carbon Dioxide Level 36 MMOL/L (21-32) H Blood Urea Nitrogen 21 mg/dL (7-18) H Creatinine 1.2 MG/DL (0.55-1.30) Estimat Glomerular Filtration Rate mL/min (>60) Glucose Level 176 MG/DL (74-106) H Calcium Level 9.0 MG/DL (8.5-10.1) Current Medications Medications (Trade) Dose Ordered Sig/Eda Route PRN Reason Start Time Stop Time Status Last Admin Dose Admin Albuterol/ Ipratropium (Albuterol/ Ipratropium) 3 ml Q4H PRN HHN dyspnea 05/12/18 04:15 05/17/18 04:14 05/15/18 09:31 Amlodipine Besylate (Norvasc) 10 mg DAILY ORAL 05/13/18 09:00 06/12/18 08:59 05/15/18 08:46 Atorvastatin Calcium (Lipitor) 20 mg BEDTIME ORAL 05/12/18 21:00 06/11/18 20:59 05/14/18 21:40 Clonidine HCl (Catapres Tab) 0.1 mg EVERY 6 HOURS PRN ORAL For High Blood Pressure 05/12/18 15:15 06/11/18 15:14 05/13/18 00:47 Dextrose (Dextrose 50%) 25 ml PRN IV Hypoglycemia 05/12/18 11:15 06/11/18 11:14 Dextrose (Dextrose 50%) 50 ml PRN IV hypoglycemia 05/12/18 11:15 06/11/18 11:14 Ferrous Sulfate (Feosol) 325 mg TWICE A DAY ORAL 05/12/18 18:00 06/11/18 17:59 05/15/18 08:44 Heparin Sodium (Porcine) (Heparin 5000 units/ml) 5,000 units EVERY 12 HOURS SUBQ 05/12/18 09:00 06/11/18 08:59 05/15/18 08:51 Insulin Aspart (NovoLOG) BEFORE MEALS AND HS SUBQ 05/12/18 12:30 06/11/18 12:29 05/15/18 06:14 Isosorbide Mononitrate (Imdur) 30 mg DAILY ORAL 05/14/18 09:00 06/13/18 08:59 05/15/18 08:46 Lorazepam (Ativan 2mg/ml 1ml) 0.5 mg Q4H PRN IV For Anxiety 05/12/18 04:15 05/19/18 04:14 Losartan Potassium (Cozaar) 100 mg DAILY ORAL 05/13/18 09:00 06/12/18 08:59 05/15/18 08:53 Morphine Sulfate (Morphine Sulfate) 2 mg Q4H PRN IVP severe pain 04-1405/12/18 04:15 05/19/18 04:14 Nitroglycerin (Ntg) 0.4 mg Q5M X 3 DOSES PRN SL Prn Chest Pain 05/12/18 04:15 06/11/18 04:14 Ondansetron HCl (Zofran) 4 mg Q6H PRN IVP Nausea & Vomiting 05/12/18 04:15 06/11/18 04:14 Pantoprazole (Protonix) 40 mg DAILY ORAL 05/13/18 09:00 06/12/18 08:59 05/15/18 08:46 Prednisone (predniSONE) 20 mg DAILY ORAL 05/15/18 09:00 06/14/18 08:59 05/15/18 08:44 Promethazine HCl/ Codeine (Phenergan with Codeine) 5 ml Q6H PRN ORAL cough 05/12/18 04:15 06/11/18 04:14 Temazepam (Restoril) 15 mg HSPRN PRN ORAL Insomnia 05/12/18 04:15 8/14/18 04:14 Theophylline (Luis Fernando-Dur) 100 mg EVERY 12 HOURS ORAL 05/12/18 09:00 06/11/18 08:59 05/15/18 08:45 Camacho Lan M.D. May 15, 2018 09:34
--- NOTE | 2018-05-15 11:49 | General Progress Note ---
Assessment/Plan Problem List: (1) CHF exacerbation ICD Codes: I50.9 - Heart failure, unspecified SNOMED: 46845870 Qualifiers: Qualified Codes: I50.9 - Heart failure, unspecified (2) Diabetes ICD Codes: E11.9 - Type 2 diabetes mellitus without complications SNOMED: 39397942 (3) Hypertension ICD Codes: I10 - Essential (primary) hypertension SNOMED: 88497161 (4) COPD with acute exacerbation ICD Codes: J44.1 - Chronic obstructive pulmonary disease with (acute) exacerbation SNOMED: 017992637 (5) UTI (urinary tract infection) ICD Codes: N39.0 - Urinary tract infection, site not specified SNOMED: 59536988 Qualifiers: Qualified Codes: N30.00 - Acute cystitis without hematuria Status: stable, progressing Assessment/Plan o2 pulm tx abx diurese ot pt diet cbc bmp am dc plan w hh Subjective Constitutional: Reports: weakness Respiratory: Reports: shortness of breath Allergies: Coded Allergies: No Known Allergies (Unverified , 06/20/14) All Systems: reviewed and negative except above Subjective o2nc calm sitting on bed Objective Last 24 Hour Vital Signs Date Time Temp Pulse Resp B/P (MAP) Pulse Ox O2 Delivery O2 Flow Rate FiO2 05/15/18 09:31 110 10 97 Nasal Cannula 2.0 28 05/15/18 09:30 97 Nasal Cannula 2.0 28 05/15/18 09:30 110 20 Nasal Cannula 2.0 28 05/15/18 09:30 Nasal Cannula 2.0 28 05/15/18 09:00 Nasal Cannula 2.0 05/15/18 08:53 159/89 05/15/18 08:46 159/89 05/15/18 08:46 100 159/89 05/15/18 08:00 98.6 100 20 159/89 (112) 95 98.6 05/15/18 08:00 105 05/15/18 04:00 94 05/15/18 04:00 97.8 94 18 158/90 (112) 95 97.8 05/15/18 00:00 97 05/15/18 00:00 97.8 94 18 137/83 (101) 96 97.8 05/14/18 21:00 Nasal Cannula 2.0 05/14/18 20:00 98.1 94 18 122/75 (91) 96 98.1 05/14/18 20:00 93 05/14/18 19:00 Nasal Cannula 2.0 28 05/14/18 19:00 90 18 Nasal Cannula 2.0 28 05/14/18 19:00 97 Nasal Cannula 2.0 28 05/14/18 16:00 107 05/14/18 16:00 98.6 93 20 118/68 (85) 98 98.6 05/14/18 12:00 82 05/14/18 12:00 97.5 88 18 134/85 (101) 98 97.5 05/14/18 11:59 97.3 68 20 106/72 (83) 98 97.3 Intake and Output 05/14/18 05/15/18 19:00 07:00 Intake Total 200 ml Output Total 800 ml 150 ml Balance -800 ml 50 ml Intake Oral 200 ml Output Urine Total 800 ml 150 ml # Bowel Movements 1 Laboratory Tests 05/15/18 06:40: White Blood Count 15.8H, Red Blood Count 4.57L, Hemoglobin 8.2L, Hematocrit 29.4L, Mean Corpuscular Volume 64L, Mean Corpuscular Hemoglobin 18.0L, Mean Corpuscular Hemoglobin Concent 28.0L, Red Cell Distribution Width 18.9H, Platelet Count 186, Mean Platelet Volume 6.7, Neutrophils (%) (Auto) , Lymphocytes (%) (Auto) , Monocytes (%) (Auto) , Eosinophils (%) (Auto) , Basophils (%) (Auto) , Differential Total Cells Counted 100, Neutrophils % ( Manual) 93H, Lymphocytes % (Manual) 3L, Monocytes % (Manual) 4, Eosinophils % ( Manual) 0, Basophils % (Manual) 0, Band Neutrophils 0, Nucleated Red Blood Cells 1, Platelet Estimate Adequate, Platelet Morphology Normal, Hypochromasia 2 +, Anisocytosis 1+, Ovalocytes 1+, Acanthocytes 1+, Schistocytes 1+, Sodium Level 136, Potassium Level 4.3, Chloride Level 101, Carbon Dioxide Level 36H, Blood Urea Nitrogen 21H, Creatinine 1.2, Estimat Glomerular Filtration Rate , Glucose Level 176H, Calcium Level 9.0 Height (Feet): 5 Height (Inches): 8.00 Weight (Pounds): 225 General Appearance: lethargic EENT: normal ENT inspection Neck: normal alignment Cardiovascular: normal peripheral pulses, normal rate, regular rhythm Respiratory/Chest: chest wall non-tender, decreased breath sounds Abdomen: normal bowel sounds, non tender, soft Extremities: normal inspection Edema: no edema noted Arm (L), no edema noted Arm (R), no edema noted Leg (L), no edema noted Leg (R), no edema noted Pedal (L), no edema noted Pedal (R), no edema noted Generalized Neurologic: oriented x 3, motor weakness Skin: normal pigmentation, warm/dry Bry Santiago DO May 15, 2018 11:49
[2018-05-15 12:00] VITALS: BP 153/69
--- NOTE | 2018-05-15 12:07 | Pulmonology Progress Note ---
Assessment/Plan Problems: (1) COPD with acute exacerbation (2) Pulmonary nodule (3) AVM (arteriovenous malformation) (4) Iron deficiency (5) Diabetes (6) Hepatitis C (7) Hypertension Assessment/Plan thorazine for hiccup cardiac evaluation respiratory treatment prbc prn, one unit last night pt might need resection of AVM malformation in small intestine Subjective ROS Limited/Unobtainable: No Constitutional: Reports: no symptoms HEENT: Repors: no symptoms Respiratory: Reports: no symptoms Allergies: Coded Allergies: No Known Allergies (Unverified , 06/20/14) Objective Last 24 Hour Vital Signs Date Time Temp Pulse Resp B/P (MAP) Pulse Ox O2 Delivery O2 Flow Rate FiO2 05/15/18 09:31 110 10 97 Nasal Cannula 2.0 28 05/15/18 09:30 97 Nasal Cannula 2.0 28 05/15/18 09:30 110 20 Nasal Cannula 2.0 28 05/15/18 09:30 Nasal Cannula 2.0 28 05/15/18 09:00 Nasal Cannula 2.0 05/15/18 08:53 159/89 05/15/18 08:46 159/89 05/15/18 08:46 100 159/89 05/15/18 08:00 98.6 100 20 159/89 (112) 95 98.6 05/15/18 08:00 105 05/15/18 04:00 94 05/15/18 04:00 97.8 94 18 158/90 (112) 95 97.8 05/15/18 00:00 97 05/15/18 00:00 97.8 94 18 137/83 (101) 96 97.8 05/14/18 21:00 Nasal Cannula 2.0 05/14/18 20:00 98.1 94 18 122/75 (91) 96 98.1 05/14/18 20:00 93 05/14/18 19:00 Nasal Cannula 2.0 28 05/14/18 19:00 90 18 Nasal Cannula 2.0 28 05/14/18 19:00 97 Nasal Cannula 2.0 28 05/14/18 16:00 107 05/14/18 16:00 98.6 93 20 118/68 (85) 98 98.6 Intake and Output 05/14/18 05/15/18 19:00 07:00 Intake Total 200 ml Output Total 800 ml 150 ml Balance -800 ml 50 ml Intake Oral 200 ml Output Urine Total 800 ml 150 ml # Bowel Movements 1 General Appearance: WD/WN HEENT: normocephalic, atraumatic Respiratory/Chest: chest wall non-tender, lungs clear, normal breath sounds Cardiovascular: normal peripheral pulses, normal rate Abdomen: normal bowel sounds Genitourinary: normal external genitalia Microbiology Date/Time Source Procedure Growth Status 05/14/18 08:20 Sputum Expectorated Gram Stain - Final Resulted 05/14/18 08:20 Sputum Expectorated Sputum Culture - Preliminary Resulted Laboratory Tests 05/15/18 06:40: White Blood Count 15.8H, Red Blood Count 4.57L, Hemoglobin 8.2L, Hematocrit 29.4L, Mean Corpuscular Volume 64L, Mean Corpuscular Hemoglobin 18.0L, Mean Corpuscular Hemoglobin Concent 28.0L, Red Cell Distribution Width 18.9H, Platelet Count 186, Mean Platelet Volume 6.7, Neutrophils (%) (Auto) , Lymphocytes (%) (Auto) , Monocytes (%) (Auto) , Eosinophils (%) (Auto) , Basophils (%) (Auto) , Differential Total Cells Counted 100, Neutrophils % ( Manual) 93H, Lymphocytes % (Manual) 3L, Monocytes % (Manual) 4, Eosinophils % ( Manual) 0, Basophils % (Manual) 0, Band Neutrophils 0, Nucleated Red Blood Cells 1, Platelet Estimate Adequate, Platelet Morphology Normal, Hypochromasia 2 +, Anisocytosis 1+, Ovalocytes 1+, Acanthocytes 1+, Schistocytes 1+, Sodium Level 136, Potassium Level 4.3, Chloride Level 101, Carbon Dioxide Level 36H, Blood Urea Nitrogen 21H, Creatinine 1.2, Estimat Glomerular Filtration Rate , Glucose Level 176H, Calcium Level 9.0 Current Medications Medications (Trade) Dose Ordered Sig/Eda Route PRN Reason Start Time Stop Time Status Last Admin Dose Admin Albuterol/ Ipratropium (Albuterol/ Ipratropium) 3 ml Q4H PRN HHN dyspnea 05/12/18 04:15 05/17/18 04:14 05/15/18 09:31 Amlodipine Besylate (Norvasc) 10 mg DAILY ORAL 05/13/18 09:00 06/12/18 08:59 05/15/18 08:46 Atorvastatin Calcium (Lipitor) 20 mg BEDTIME ORAL 05/12/18 21:00 06/11/18 20:59 05/14/18 21:40 Clonidine HCl (Catapres Tab) 0.1 mg EVERY 6 HOURS PRN ORAL For High Blood Pressure 05/12/18 15:15 06/11/18 15:14 05/13/18 00:47 Dextrose (Dextrose 50%) 25 ml PRN IV Hypoglycemia 05/12/18 11:15 06/11/18 11:14 Dextrose (Dextrose 50%) 50 ml PRN IV hypoglycemia 05/12/18 11:15 06/11/18 11:14 Ferrous Sulfate (Feosol) 325 mg TWICE A DAY ORAL 05/12/18 18:00 06/11/18 17:59 05/15/18 08:44 Heparin Sodium (Porcine) (Heparin 5000 units/ml) 5,000 units EVERY 12 HOURS SUBQ 05/12/18 09:00 06/11/18 08:59 05/15/18 08:51 Insulin Aspart (NovoLOG) BEFORE MEALS AND HS SUBQ 05/12/18 12:30 06/11/18 12:29 05/15/18 06:14 Isosorbide Mononitrate (Imdur) 30 mg DAILY ORAL 05/14/18 09:00 06/13/18 08:59 05/15/18 08:46 Lorazepam (Ativan 2mg/ml 1ml) 0.5 mg Q4H PRN IV For Anxiety 05/12/18 04:15 05/19/18 04:14 Losartan Potassium (Cozaar) 100 mg DAILY ORAL 05/13/18 09:00 06/12/18 08:59 05/15/18 08:53 Morphine Sulfate (Morphine Sulfate) 2 mg Q4H PRN IVP severe pain 7-10 05/12/18 04:15 05/19/18 04:14 Nitroglycerin (Ntg) 0.4 mg Q5M X 3 DOSES PRN SL Prn Chest Pain 05/12/18 04:15 06/11/18 04:14 Ondansetron HCl (Zofran) 4 mg Q6H PRN IVP Nausea & Vomiting 05/12/18 04:15 06/11/18 04:14 Pantoprazole (Protonix) 40 mg DAILY ORAL 05/13/18 09:00 06/12/18 08:59 05/15/18 08:46 Prednisone (predniSONE) 20 mg DAILY ORAL 05/15/18 09:00 06/14/18 08:59 05/15/18 08:44 Promethazine HCl/ Codeine (Phenergan with Codeine) 5 ml Q6H PRN ORAL cough 05/12/18 04:15 06/11/18 04:14 Temazepam (Restoril) 15 mg HSPRN PRN ORAL Insomnia 05/12/18 04:15 05/19/18 04:14 Theophylline (Luis Fernando-Dur) 100 mg EVERY 12 HOURS ORAL 05/12/18 09:00 06/11/18 08:59 05/15/18 08:45 Balta Luna MD May 15, 2018 12:07
[2018-05-15] MEDS ORDERED: chlorproMAZINE 10mg tab ORAL PRN (12:15)
[2018-05-15 16:00] VITALS: BP 120/80
--- NOTE | 2018-05-15 17:45 | Cardiology Progress Note ---
Assessment/Plan Assessment/Plan 1. Dyspnea most likely acute exacerbation of COPD, however would like to obtain 2D echo to assess LV systolic and diastolic function. 2. Hypertensive heart disease with labile blood pressure. 3. 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 4. Non-ischemic stress test in 2013. Subjective Subjective Sinus tach at 101. Objective Last 24 Hour Vital Signs Date Time Temp Pulse Resp B/P (MAP) Pulse Ox O2 Delivery O2 Flow Rate FiO2 05/15/18 16:00 98.6 93 20 120/80 (93) 97 98.6 05/15/18 12:00 98.0 102 20 153/69 (97) 96 98.0 05/15/18 12:00 103 05/15/18 09:31 110 10 97 Nasal Cannula 2.0 28 05/15/18 09:30 97 Nasal Cannula 2.0 28 05/15/18 09:30 110 20 Nasal Cannula 2.0 28 05/15/18 09:30 Nasal Cannula 2.0 28 05/15/18 09:00 Nasal Cannula 2.0 05/15/18 08:53 159/89 05/15/18 08:46 159/89 05/15/18 08:46 100 159/89 05/15/18 08:00 98.6 100 20 159/89 (112) 95 98.6 05/15/18 08:00 105 05/15/18 04:00 94 05/15/18 04:00 97.8 94 18 158/90 (112) 95 97.8 05/15/18 00:00 97 05/15/18 00:00 97.8 94 18 137/83 (101) 96 97.8 05/14/18 21:00 Nasal Cannula 2.0 05/14/18 20:00 98.1 94 18 122/75 (91) 96 98.1 05/14/18 20:00 93 05/14/18 19:00 Nasal Cannula 2.0 28 05/14/18 19:00 90 18 Nasal Cannula 2.0 28 05/14/18 19:00 97 Nasal Cannula 2.0 28 Intake and Output 05/14/18 05/15/18 19:00 07:00 Intake Total 200 ml Output Total 800 ml 150 ml Balance -800 ml 50 ml Intake Oral 200 ml Output Urine Total 800 ml 150 ml # Bowel Movements 1 Laboratory Tests Test 05/15/18 06:40 White Blood Count 15.8 K/UL (4.8-10.8) H Red Blood Count 4.57 M/UL (4.70-6.10) L Hemoglobin 8.2 G/DL (14.2-18.0) L Hematocrit 29.4 % (42.0-52.0) L Mean Corpuscular Volume 64 FL (80-99) L Mean Corpuscular Hemoglobin 18.0 PG (27.0-31.0) L Mean Corpuscular Hemoglobin Concent 28.0 G/DL (32.0-36.0) L Red Cell Distribution Width 18.9 % (11.6-14.8) H Platelet Count 186 K/UL (150-450) Mean Platelet Volume 6.7 FL (6.5-10.1) Neutrophils (%) (Auto) % (45.0-75.0) Lymphocytes (%) (Auto) % (20.0-45.0) Monocytes (%) (Auto) % (1.0-10.0) Eosinophils (%) (Auto) % (0.0-3.0) Basophils (%) (Auto) % (0.0-2.0) Differential Total Cells Counted 100 Neutrophils % (Manual) 93 % (45-75) H Lymphocytes % (Manual) 3 % (20-45) L Monocytes % (Manual) 4 % (1-10) Eosinophils % (Manual) 0 % (0-3) Basophils % (Manual) 0 % (0-2) Band Neutrophils 0 % (0-8) Nucleated Red Blood Cells 1 /100 WBC Platelet Estimate Adequate Platelet Morphology Normal Hypochromasia 2+ Anisocytosis 1+ Ovalocytes 1+ Acanthocytes 1+ Schistocytes 1+ Sodium Level 136 MMOL/L (136-145) Potassium Level 4.3 MMOL/L (3.5-5.1) Chloride Level 101 MMOL/L (98-107) Carbon Dioxide Level 36 MMOL/L (21-32) H Blood Urea Nitrogen 21 mg/dL (7-18) H Creatinine 1.2 MG/DL (0.55-1.30) Estimat Glomerular Filtration Rate mL/min (>60) Glucose Level 176 MG/DL (74-106) H Calcium Level 9.0 MG/DL (8.5-10.1) Microbiology Date/Time Source Procedure Growth Status 05/14/18 08:20 Sputum Expectorated Gram Stain - Final Resulted 05/14/18 08:20 Sputum Expectorated Sputum Culture - Preliminary Resulted Objective HEENT: Atraumatic, normocephalic, PERRLA, EOMI. Neck: No JVD LUNGS: Significant decrease of breath sounds HEART: Regular rhythm and rate. Tachycardic.Distant S1, S2. ABDOMEN: Soft, non-tender, non-distended, + BS. EXTREMITIES: No edema, clubbing or cyanosis. Jorgito Pickering MD May 15, 2018 17:45
[2018-05-15] MEDS: Hydrocortisone SUPP RECTAL SCH (18:00)
--- NOTE | 2018-05-15 18:32 | Consultation ---
History of Present Illness General Date patient seen: May 15, 2018 Chief Complaint: Dyspnea/Respdistress Reason for Consultation: Small Bowel AV Malformations Present Illness HPI 77 year old male with multiple medical comorbidities who is currently being hospitalized for COPD has history of small bowel AV malformations and anemia. Patient states that he notes blood in almost every BM for years now. Intermittently becomes anemic requiring blood transfusions. states he has received over 3-4 PRBC transfusions this year for anemia. On prior admission has had endoscopy and was noted to have AV malformations which have been considered his likely etiology for anemia. Surgery called to evaluate and see for possibility of surgical intervention. Patient seen, chart reviewed, patient examined. Allergies: Coded Allergies: No Known Allergies (Unverified , 06/20/14) Medication History Scheduled Amlodipine Besylate (Norvasc), 10 MG ORAL DAILY, (Reported) Aspirin* (Aspir 81*), 81 MG ORAL DAILY, (Reported) Atorvastatin Calcium* (Atorvastatin Calcium*), 20 MG ORAL BEDTIME, (Reported) Diphenhydramine HCl (Benadryl), 25 MG PO Q6HR, (Reported) Ferrous Sulfate* (Ferrous Sulfate*), 325 MG ORAL TWICE A DAY, (Reported) Hum Insulin Nph/Reg Insulin Hm (Humulin 70-30 Vial), 30 UNITS SUBQ ACBREAKFAST, (Reported) Hum Insulin Nph/Reg Insulin Hm (Humulin 70-30 Vial), 20 UNITS SUBQ QHS, ( Reported) Hydrochlorothiazide* (Hydrochlorothiazide*), 25 MG ORAL DAILY, (Reported) Losartan Potassium (Losartan Potassium), 100 MG ORAL DAILY, (Reported) Metformin Hcl* (Metformin Hcl*), 1,000 MG ORAL BID, (Reported) Pantoprazole* (Protonix*), 40 MG ORAL DAILY, (Reported) Simvastatin (Zocor), 40 MG ORAL BEDTIME, (Reported) Temazepam (Temazepam*), 15 MG ORAL BEDTIME, (Reported) Scheduled PRN Albuterol Sulfate (Proventil Hfa), 6.7 GM IH for Shortness of Breath, (Reported) Nitroglycerin (Nitrostat), 0.4 MG SL Q5M X3 DOSES PRN for CHEST PAIN, (Reported) Polyethylene Glycol 3350* (Miralax*), 17 GM ORAL DAILY PRN for Constipation, ( Reported) Patient History History Provided By: Patient, Medical Record, PMD Healthcare decision maker Resuscitation status Full Code Advanced Directive on File No Past Medical/Surgical History Past Medical/Surgical History: (1) Unstable angina (2) Lightheadedness (3) Encounter for diagnostic endoscopy (4) Renal insufficiency (5) Rapid atrial fibrillation (6) Helicobacter pylori (H. pylori) (7) Anemia (8) UTI (urinary tract infection) (9) COPD with acute exacerbation (10) COPD (chronic obstructive pulmonary disease) (11) Diabetes (12) AVM (arteriovenous malformation) (13) Hypertension (14) HTN (hypertension) (15) Hepatitis C (16) Pulmonary nodule (17) Iron deficiency (18) CHF exacerbation Review of Systems All Other Systems: negative except mentioned in HPI Physical Exam General Appearance: no apparent distress Lines, tubes and drains: peripheral HEENT: mucous membranes moist, PERRL Neck: normal inspection Respiratory/Chest: chest wall non-tender, no respiratory distress, no accessory muscle use Cardiovascular/Chest: normal peripheral pulses Abdomen: normal bowel sounds, non tender, soft, no organomegaly, no mass Extremities: normal inspection Skin Exam: warm/dry Neurologic: alert, oriented x 3 Last 24 Hour Vital Signs Date Time Temp Pulse Resp B/P (MAP) Pulse Ox O2 Delivery O2 Flow Rate FiO2 05/15/18 16:00 98.6 93 20 120/80 (93) 97 98.6 05/15/18 12:00 98.0 102 20 153/69 (97) 96 98.0 05/15/18 12:00 103 05/15/18 09:31 110 10 97 Nasal Cannula 2.0 28 05/15/18 09:30 97 Nasal Cannula 2.0 28 05/15/18 09:30 110 20 Nasal Cannula 2.0 28 05/15/18 09:30 Nasal Cannula 2.0 28 05/15/18 09:00 Nasal Cannula 2.0 05/15/18 08:53 159/89 05/15/18 08:46 159/89 05/15/18 08:46 100 159/89 05/15/18 08:00 98.6 100 20 159/89 (112) 95 98.6 05/15/18 08:00 105 05/15/18 04:00 94 05/15/18 04:00 97.8 94 18 158/90 (112) 95 97.8 05/15/18 00:00 97 8/10/18 00:00 97.8 94 18 137/83 (101) 96 97.8 05/14/18 21:00 Nasal Cannula 2.0 05/14/18 20:00 98.1 94 18 122/75 (91) 96 98.1 05/14/18 20:00 93 05/14/18 19:00 Nasal Cannula 2.0 28 05/14/18 19:00 90 18 Nasal Cannula 2.0 28 05/14/18 19:00 97 Nasal Cannula 2.0 28 Intake and Output 05/14/18 05/15/18 19:00 07:00 Intake Total 200 ml Output Total 800 ml 150 ml Balance -800 ml 50 ml Intake Oral 200 ml Output Urine Total 800 ml 150 ml # Bowel Movements 1 Laboratory Tests Test 05/15/18 06:40 05/15/18 17:43 White Blood Count 15.8 K/UL (4.8-10.8) H Red Blood Count 4.57 M/UL (4.70-6.10) L Hemoglobin 8.2 G/DL (14.2-18.0) L Hematocrit 29.4 % (42.0-52.0) L Mean Corpuscular Volume 64 FL (80-99) L Mean Corpuscular Hemoglobin 18.0 PG (27.0-31.0) L Mean Corpuscular Hemoglobin Concent 28.0 G/DL (32.0-36.0) L Red Cell Distribution Width 18.9 % (11.6-14.8) H Platelet Count 186 K/UL (150-450) Mean Platelet Volume 6.7 FL (6.5-10.1) Neutrophils (%) (Auto) % (45.0-75.0) Lymphocytes (%) (Auto) % (20.0-45.0) Monocytes (%) (Auto) % (1.0-10.0) Eosinophils (%) (Auto) % (0.0-3.0) Basophils (%) (Auto) % (0.0-2.0) Differential Total Cells Counted 100 Neutrophils % (Manual) 93 % (45-75) H Lymphocytes % (Manual) 3 % (20-45) L Monocytes % (Manual) 4 % (1-10) Eosinophils % (Manual) 0 % (0-3) Basophils % (Manual) 0 % (0-2) Band Neutrophils 0 % (0-8) Nucleated Red Blood Cells 1 /100 WBC Platelet Estimate Adequate Platelet Morphology Normal Hypochromasia 2+ Anisocytosis 1+ Ovalocytes 1+ Acanthocytes 1+ Schistocytes 1+ Sodium Level 136 MMOL/L (136-145) Potassium Level 4.3 MMOL/L (3.5-5.1) Chloride Level 101 MMOL/L (98-107) Carbon Dioxide Level 36 MMOL/L (21-32) H Blood Urea Nitrogen 21 mg/dL (7-18) H Creatinine 1.2 MG/DL (0.55-1.30) Estimat Glomerular Filtration Rate mL/min (>60) Glucose Level 176 MG/DL (74-106) H Calcium Level 9.0 MG/DL (8.5-10.1) Arterial Blood pH 7.370 (7.350-7.450) Arterial Blood Partial Pressure CO2 54.1 mmHg (35.0-45.0) H Arterial Blood Partial Pressure O2 70.5 mmHg (75.0-100.0) L Arterial Blood HCO3 30.7 mmol/L (22.0-26.0) H Arterial Blood Oxygen Saturation 93.9 % (92.0-98.0) Arterial Blood Base Excess 4.6 Patrice Test Positive Height (Feet): 5 Height (Inches): 8.00 Weight (Pounds): 225 Medications Current Medications Medications (Trade) Dose Ordered Sig/Eda Route PRN Reason Start Time Stop Time Status Last Admin Dose Admin Albuterol/ Ipratropium (Albuterol/ Ipratropium) 3 ml Q4H PRN HHN dyspnea 05/12/18 04:15 05/17/18 04:14 05/15/18 09:31 Amlodipine Besylate (Norvasc) 10 mg DAILY ORAL 05/13/18 09:00 06/12/18 08:59 05/15/18 08:46 Atorvastatin Calcium (Lipitor) 20 mg BEDTIME ORAL 05/12/18 21:00 06/11/18 20:59 05/14/18 21:40 Chlorpromazine (Thorazine) 10 mg Q6H PRN ORAL hiccup 05/15/18 12:15 06/14/18 12:14 Clonidine HCl (Catapres Tab) 0.1 mg EVERY 6 HOURS PRN ORAL For High Blood Pressure 05/12/18 15:15 06/11/18 15:14 05/13/18 00:47 Dextrose (Dextrose 50%) 25 ml PRN IV Hypoglycemia 05/12/18 11:15 06/11/18 11:14 Dextrose (Dextrose 50%) 50 ml PRN IV hypoglycemia 05/12/18 11:15 06/11/18 11:14 Ferrous Sulfate (Feosol) 325 mg TWICE A DAY ORAL 05/12/18 18:00 06/11/18 17:59 05/15/18 08:44 Heparin Sodium (Porcine) (Heparin 5000 units/ml) 5,000 units EVERY 12 HOURS SUBQ 05/12/18 09:00 06/11/18 08:59 05/15/18 08:51 Hydrocortisone (Anusol HC) 1 supp TWICE A DAY RECTAL 05/15/18 18:00 06/14/18 17:59 Insulin Aspart (NovoLOG) BEFORE MEALS AND HS SUBQ 05/12/18 12:30 06/11/18 12:29 05/15/18 17:35 Iron Sucrose 100 mg/Sodium Chloride 115 ml @ 230 mls/hr BEDTIME IV 05/15/18 21:00 05/19/18 21:29 Isosorbide Mononitrate (Imdur) 30 mg DAILY ORAL 05/14/18 09:00 06/13/18 08:59 05/15/18 08:46 Lorazepam (Ativan 2mg/ml 1ml) 0.5 mg Q4H PRN IV For Anxiety 05/12/18 04:15 05/19/18 04:14 Losartan Potassium (Cozaar) 100 mg DAILY ORAL 05/13/18 09:00 06/12/18 08:59 05/15/18 08:53 Morphine Sulfate (Morphine Sulfate) 2 mg Q4H PRN IVP severe pain 7-10 05/12/18 04:15 05/19/18 04:14 Nitroglycerin (Ntg) 0.4 mg Q5M X 3 DOSES PRN SL Prn Chest Pain 05/12/18 04:15 06/11/18 04:14 Ondansetron HCl (Zofran) 4 mg Q6H PRN IVP Nausea & Vomiting 05/12/18 04:15 06/11/18 04:14 Pantoprazole (Protonix) 40 mg DAILY ORAL 05/13/18 09:00 06/12/18 08:59 05/15/18 08:46 Prednisone (predniSONE) 20 mg DAILY ORAL 05/15/18 09:00 06/14/18 08:59 05/15/18 08:44 Promethazine HCl/ Codeine (Phenergan with Codeine) 5 ml Q6H PRN ORAL cough 05/12/18 04:15 06/11/18 04:14 Temazepam (Restoril) 15 mg HSPRN PRN ORAL Insomnia 05/12/18 04:15 05/19/18 04:14 Theophylline (Luis Fernando-Dur) 100 mg EVERY 12 HOURS ORAL 05/12/18 09:00 06/11/18 08:59 05/15/18 08:45 Assessment/Plan Problem List: (1) Anemia ICD Codes: D64.9 - Anemia, unspecified SNOMED: 645079246 Qualifiers: Qualified Codes: D64.9 - Anemia, unspecified (2) AVM (arteriovenous malformation) Assessment & Plan: small bowel AV malformations discussed with GI about prior endoscopy and AV malformations likely has multiple and not one discrete AV malformation. in process of reviewing inpatient and outpatient records unlikely will be operative candidate given multiple lesions will discuss with consultants for care plan thank you for this consultation. ICD Codes: Q27.30 - Arteriovenous malformation, site unspecified SNOMED: 219423714 Status: stable Ant Levine May 15, 2018 18:32
[2018-05-15 20:00] VITALS: BP 141/80
[2018-05-15] MEDS: Iron Sucrose 100 MG in NS 110 ML IV SCH (21:18)
[2018-05-15] MEDS: Atorvastatin 20mg tab ORAL SCH (21:18)
[2018-05-16] VITALS: BP 156/84
[2018-05-16 04:00] VITALS: BP 155/94
[2018-05-16] MEDS: NovoLOG Insulin Flexpen SUBQ SCH ×4 (06:12→21:03)
--- NOTE | 2018-05-16 07:39 | Infectious Diseases Prog Note ---
Assessment/Plan Assessment/Plan 77 yo male with PMHx of DM and COPD who presents with SOB for the last week. # Shortness of breath - - Anemia, Congestion, COPD? Viral URI - No evidence for bacterial infection. - CXR 05/11 Nonspecific increased lung markings, most pronounced in the bases. Findings may be related to congestion or possible small airway disease/ bronchitis. - Patient stable on minimal O2 # Pyuria Patient with BPH and and mild dysuria - f/u Urine Cx - Urine culture nagitive #DM #HTN #COPD #CVA # GI bleeding secondary to AVM PLAN - Continue to monitor off antibiotics - Stop Ceftriaxone patient asymptomatic - 05/12/18 - SP Zosyn #1 - Aspiration precautions - Monitor CBC and Temps - Thank you for consulting us for the care of this patient. We will continue to follow with you. Subjective Allergies: Coded Allergies: No Known Allergies (Unverified , 06/20/14) Subjective No acute everts over night Patient stable Afebrile. Objective Vital Signs Last 24 Hour Vital Signs Date Time Temp Pulse Resp B/P (MAP) Pulse Ox O2 Delivery O2 Flow Rate FiO2 05/16/18 04:00 97.9 89 18 155/94 (114) 100 97.9 05/16/18 04:00 91 05/16/18 00:00 98.0 98 18 156/84 (108) 96 98.0 05/16/18 00:00 106 05/15/18 21:00 Nasal Cannula 2.0 05/15/18 20:00 101 05/15/18 20:00 98.4 88 20 141/80 (100) 97 98.4 05/15/18 19:05 Nasal Cannula 2.0 28 05/15/18 19:05 99 22 Nasal Cannula 2.0 28 05/15/18 19:05 98 Nasal Cannula 2.0 28 05/15/18 16:00 98.6 93 20 120/80 (93) 97 98.6 05/15/18 16:00 95 05/15/18 12:00 98.0 102 20 153/69 (97) 96 98.0 05/15/18 12:00 103 05/15/18 09:31 110 10 97 Nasal Cannula 2.0 28 05/15/18 09:30 97 Nasal Cannula 2.0 28 05/15/18 09:30 110 20 Nasal Cannula 2.0 28 05/15/18 09:30 Nasal Cannula 2.0 28 05/15/18 09:00 Nasal Cannula 2.0 05/15/18 08:53 159/89 05/15/18 08:46 159/89 05/15/18 08:46 100 159/89 05/15/18 08:00 98.6 100 20 159/89 (112) 95 98.6 05/15/18 08:00 105 Height (Feet): 5 Height (Inches): 8.00 Weight (Pounds): 222 Objective Gen: NAD, Sitting up in a chair HEENT: NCAT, MMM, EOMI, LUNGS: CTAB, No W/C CARDS: RRR, S1, S2, No M/R/G, ABD: Soft, NT, ND, + BS Ext: No C/C/E, Pulses 2+ B/L (DP, Rad): NEURO: A/O x 4, Strength and Sensation Grossly intact Microbiology Date/Time Source Procedure Growth Status 05/14/18 08:20 Sputum Expectorated Gram Stain - Final Resulted 05/14/18 08:20 Sputum Expectorated Sputum Culture - Preliminary Resulted Laboratory Tests Test 05/15/18 17:43 05/16/18 06:02 Arterial Blood pH 7.370 (7.350-7.450) Arterial Blood Partial Pressure CO2 54.1 mmHg (35.0-45.0) H Arterial Blood Partial Pressure O2 70.5 mmHg (75.0-100.0) L Arterial Blood HCO3 30.7 mmol/L (22.0-26.0) H Arterial Blood Oxygen Saturation 93.9 % (92.0-98.0) Arterial Blood Base Excess 4.6 Patrice Test Positive White Blood Count Pending Red Blood Count Pending Hemoglobin Pending Hematocrit Pending Mean Corpuscular Volume Pending Mean Corpuscular Hemoglobin Pending Mean Corpuscular Hemoglobin Concent Pending Red Cell Distribution Width Pending Platelet Count Pending Mean Platelet Volume Pending Neutrophils (%) (Auto) Pending Lymphocytes (%) (Auto) Pending Monocytes (%) (Auto) Pending Eosinophils (%) (Auto) Pending Basophils (%) (Auto) Pending Sodium Level Pending Potassium Level Pending Chloride Level Pending Carbon Dioxide Level Pending Blood Urea Nitrogen Pending Creatinine Pending Estimat Glomerular Filtration Rate Pending Glucose Level Pending Calcium Level Pending Current Medications Medications (Trade) Dose Ordered Sig/Eda Route PRN Reason Start Time Stop Time Status Last Admin Dose Admin Albuterol/ Ipratropium (Albuterol/ Ipratropium) 3 ml Q4H PRN HHN dyspnea 05/12/18 04:15 05/17/18 04:14 05/15/18 09:31 Amlodipine Besylate (Norvasc) 10 mg DAILY ORAL 05/13/18 09:00 06/12/18 08:59 05/15/18 08:46 Atorvastatin Calcium (Lipitor) 20 mg BEDTIME ORAL 05/12/18 21:00 06/11/18 20:59 05/15/18 21:18 Chlorpromazine (Thorazine) 10 mg Q6H PRN ORAL hiccup 05/15/18 12:15 06/14/18 12:14 Clonidine HCl (Catapres Tab) 0.1 mg EVERY 6 HOURS PRN ORAL For High Blood Pressure 05/12/18 15:15 06/11/18 15:14 05/13/18 00:47 Dextrose (Dextrose 50%) 25 ml PRN IV Hypoglycemia 05/12/18 11:15 06/11/18 11:14 Dextrose (Dextrose 50%) 50 ml PRN IV hypoglycemia 05/12/18 11:15 06/11/18 11:14 Ferrous Sulfate (Feosol) 325 mg TWICE A DAY ORAL 05/12/18 18:00 06/11/18 17:59 05/15/18 18:41 Heparin Sodium (Porcine) (Heparin 5000 units/ml) 5,000 units EVERY 12 HOURS SUBQ 05/12/18 09:00 06/11/18 08:59 05/15/18 21:20 Hydrocortisone (Anusol HC) 1 supp TWICE A DAY RECTAL 05/15/18 18:00 06/14/18 17:59 Insulin Aspart (NovoLOG) BEFORE MEALS AND HS SUBQ 05/12/18 12:30 06/11/18 12:29 05/16/18 06:12 Iron Sucrose 100 mg/Sodium Chloride 115 ml @ 230 mls/hr BEDTIME IV 05/15/18 21:00 05/19/18 21:29 05/15/18 21:18 Isosorbide Mononitrate (Imdur) 30 mg DAILY ORAL 05/14/18 09:00 06/13/18 08:59 05/15/18 08:46 Lorazepam (Ativan 2mg/ml 1ml) 0.5 mg Q4H PRN IV For Anxiety 05/12/18 04:15 05/19/18 04:14 Losartan Potassium (Cozaar) 100 mg DAILY ORAL 05/13/18 09:00 06/12/18 08:59 05/15/18 08:53 Morphine Sulfate (Morphine Sulfate) 2 mg Q4H PRN IVP severe pain 04-1405/12/18 04:15 05/19/18 04:14 Nitroglycerin (Ntg) 0.4 mg Q5M X 3 DOSES PRN SL Prn Chest Pain 05/12/18 04:15 06/11/18 04:14 Ondansetron HCl (Zofran) 4 mg Q6H PRN IVP Nausea & Vomiting 05/12/18 04:15 06/11/18 04:14 Pantoprazole (Protonix) 40 mg DAILY ORAL 05/13/18 09:00 06/12/18 08:59 05/15/18 08:46 Prednisone (predniSONE) 20 mg DAILY ORAL 05/15/18 09:00 06/14/18 08:59 05/15/18 08:44 Promethazine HCl/ Codeine (Phenergan with Codeine) 5 ml Q6H PRN ORAL cough 05/12/18 04:15 06/11/18 04:14 Temazepam (Restoril) 15 mg HSPRN PRN ORAL Insomnia 05/12/18 04:15 05/19/18 04:14 Theophylline (Luis Fernando-Dur) 100 mg EVERY 12 HOURS ORAL 05/12/18 09:00 06/11/18 08:59 05/15/18 21:18 Camacho Lan M.D. May 16, 2018 07:39
[2018-05-16 07:54] LABS: BASOPHILS % (AUTO) 0.4 % (0.0-2.0); EOSINOPHILS % (AUTO) 0.2 % (0.0-3.0); HEMATOCRIT 32.5 % (42.0-52.0); HEMOGLOBIN 9.2 G/DL (14.2-18.0); LYMPHOCYTES % (AUTO) 9.7 % (20.0-45.0); MEAN CORPUSCULAR VOLUME 64 FL (80-99); MONOCYTES % (AUTO) 12.1 % (1.0-10.0); NEUTROPHILS % (AUTO) 77.5 % (45.0-75.0); PLATELET COUNT 185 K/UL (150-450); RED BLOOD COUNT 5.07 M/UL (4.70-6.10); RED CELL DISTRIBUTION WIDTH 19.8 % (11.6-14.8); WHITE BLOOD COUNT 13.5 K/UL (4.8-10.8)
[2018-05-16 08:00] VITALS: BP 150/96
[2018-05-16 08:23] LABS: ANION GAP 1 mmol/L (5-15); BLOOD UREA NITROGEN 20 mg/dL (7-18); CARBON DIOXIDE 36 MMOL/L (21-32); CHLORIDE 100 MMOL/L (98-107); CREATININE 1.2 MG/DL (0.55-1.30); POTASSIUM 4.2 MMOL/L (3.5-5.1); SODIUM 136 MMOL/L (136-145)
[2018-05-16] MEDS: Hydrocortisone SUPP RECTAL SCH ×2 (09:00→18:00)
[2018-05-16] MEDS: Losartan 50mg tab ORAL SCH (09:05)
[2018-05-16] MEDS: Imdur 30mg tab ORAL SCH (09:05)
[2018-05-16] MEDS: Theophylline ER 100mg ORAL SCH (09:06)
[2018-05-16] MEDS: Heparin 5000 units/ml inj SUBQ SCH ×2 (09:08→21:04)
--- NOTE | 2018-05-16 09:09 | General Progress Note ---
Assessment/Plan Problem List: (1) CHF exacerbation ICD Codes: I50.9 - Heart failure, unspecified SNOMED: 59369265 Qualifiers: Qualified Codes: I50.9 - Heart failure, unspecified (2) Diabetes ICD Codes: E11.9 - Type 2 diabetes mellitus without complications SNOMED: 76120140 (3) Hypertension ICD Codes: I10 - Essential (primary) hypertension SNOMED: 34610777 (4) COPD with acute exacerbation ICD Codes: J44.1 - Chronic obstructive pulmonary disease with (acute) exacerbation SNOMED: 642761982 (5) UTI (urinary tract infection) ICD Codes: N39.0 - Urinary tract infection, site not specified SNOMED: 54668277 Qualifiers: Qualified Codes: N30.00 - Acute cystitis without hematuria Status: stable, progressing Assessment/Plan o2 pulm tx abx diurese ot pt diet cbc bmp am gi sx eval Subjective Constitutional: Reports: weakness Allergies: Coded Allergies: No Known Allergies (Unverified , 06/20/14) All Systems: reviewed and negative except above Subjective o2nc calm sitting on bed Objective Last 24 Hour Vital Signs Date Time Temp Pulse Resp B/P (MAP) Pulse Ox O2 Delivery O2 Flow Rate FiO2 05/16/18 08:00 108 05/16/18 08:00 97.2 99 20 150/96 (114) 97 97.2 05/16/18 04:00 97.9 89 18 155/94 (114) 100 97.9 05/16/18 04:00 91 05/16/18 00:00 98.0 98 18 156/84 (108) 96 98.0 05/16/18 00:00 106 05/15/18 21:00 Nasal Cannula 2.0 05/15/18 20:00 101 05/15/18 20:00 98.4 88 20 141/80 (100) 97 98.4 05/15/18 19:05 Nasal Cannula 2.0 28 05/15/18 19:05 99 22 Nasal Cannula 2.0 28 05/15/18 19:05 98 Nasal Cannula 2.0 28 05/15/18 16:00 98.6 93 20 120/80 (93) 97 98.6 05/15/18 16:00 95 05/15/18 12:00 98.0 102 20 153/69 (97) 96 98.0 05/15/18 12:00 103 05/15/18 09:31 110 10 97 Nasal Cannula 2.0 28 05/15/18 09:30 97 Nasal Cannula 2.0 28 05/15/18 09:30 110 20 Nasal Cannula 2.0 28 05/15/18 09:30 Nasal Cannula 2.0 28 Intake and Output 05/15/18 05/16/18 19:00 07:00 Intake Total 1080 ml 800 ml Output Total 400 ml 1900 ml Balance 680 ml -1100 ml Intake Oral 1080 ml 800 ml Output Urine Total 400 ml 1900 ml Laboratory Tests 05/15/18 17:43: Arterial Blood pH 7.370, Arterial Blood Partial Pressure CO2 54.1H, Arterial Blood Partial Pressure O2 70.5L, Arterial Blood HCO3 30.7H, Arterial Blood Oxygen Saturation 93.9, Arterial Blood Base Excess 4.6, Patrice Test Positive 05/16/18 06:02: White Blood Count 13.5H, Red Blood Count 5.07, Hemoglobin 9.2L, Hematocrit 32.5L , Mean Corpuscular Volume 64L, Mean Corpuscular Hemoglobin 18.1L, Mean Corpuscular Hemoglobin Concent 28.3L, Red Cell Distribution Width 19.8H, Platelet Count 185, Mean Platelet Volume 6.2L, Neutrophils (%) (Auto) 77.5H, Lymphocytes (%) (Auto) 9.7L, Monocytes (%) (Auto) 12.1H, Eosinophils (%) (Auto) 0.2, Basophils (%) (Auto) 0.4, Sodium Level 136, Potassium Level 4.2, Chloride Level 100, Carbon Dioxide Level 36H, Anion Gap 1L, Blood Urea Nitrogen 20H, Creatinine 1.2, Estimat Glomerular Filtration Rate , Glucose Level 118H, Calcium Level 9.0 Height (Feet): 5 Height (Inches): 8.00 Weight (Pounds): 222 General Appearance: lethargic EENT: normal ENT inspection Neck: normal alignment Cardiovascular: normal peripheral pulses, normal rate, regular rhythm Respiratory/Chest: chest wall non-tender, lungs clear, normal breath sounds Abdomen: normal bowel sounds, non tender, soft Extremities: normal inspection Edema: no edema noted Arm (L), no edema noted Arm (R), no edema noted Leg (L), no edema noted Leg (R), no edema noted Pedal (L), no edema noted Pedal (R), no edema noted Generalized Neurologic: responsive, motor weakness Skin: normal pigmentation, warm/dry Bry Santiago DO May 16, 2018 09:09
[2018-05-16] MEDS: Docusate 100mg cap ORAL SCH ×2 (10:03→17:15)
--- NOTE | 2018-05-16 10:05 | Pulmonology Progress Note ---
Assessment/Plan Problems: (1) COPD with acute exacerbation (2) Pulmonary nodule (3) AVM (arteriovenous malformation) (4) Iron deficiency (5) Diabetes (6) Hepatitis C (7) Hypertension Assessment/Plan episodes of sinus tachy improving prednisone 10 mg now cardiac evaluation respiratory treatment d/w Dr. FARR surgeon, small intestine can not be removed. pt might need resection of AVM malformation in small intestine Subjective ROS Limited/Unobtainable: No Constitutional: Reports: no symptoms HEENT: Repors: no symptoms Respiratory: Reports: no symptoms Allergies: Coded Allergies: No Known Allergies (Unverified , 06/20/14) Objective Last 24 Hour Vital Signs Date Time Temp Pulse Resp B/P (MAP) Pulse Ox O2 Delivery O2 Flow Rate FiO2 05/16/18 09:48 98 Nasal Cannula 2.0 28 05/16/18 09:48 97 22 Nasal Cannula 2.0 28 05/16/18 09:48 Nasal Cannula 2.0 28 05/16/18 09:05 150/96 05/16/18 09:05 150/96 05/16/18 09:05 108 150/96 05/16/18 08:00 108 05/16/18 08:00 97.2 99 20 150/96 (114) 97 97.2 05/16/18 04:00 97.9 89 18 155/94 (114) 100 97.9 05/16/18 04:00 91 05/16/18 00:00 98.0 98 18 156/84 (108) 96 98.0 05/16/18 00:00 106 05/15/18 21:00 Nasal Cannula 2.0 05/15/18 20:00 101 05/15/18 20:00 98.4 88 20 141/80 (100) 97 98.4 05/15/18 19:05 Nasal Cannula 2.0 28 05/15/18 19:05 99 22 Nasal Cannula 2.0 28 05/15/18 19:05 98 Nasal Cannula 2.0 28 05/15/18 16:00 98.6 93 20 120/80 (93) 97 98.6 05/15/18 16:00 95 05/15/18 12:00 98.0 102 20 153/69 (97) 96 98.0 05/15/18 12:00 103 Intake and Output 05/15/18 05/16/18 19:00 07:00 Intake Total 1080 ml 800 ml Output Total 400 ml 1900 ml Balance 680 ml -1100 ml Intake Oral 1080 ml 800 ml Output Urine Total 400 ml 1900 ml Objective General Appearance: WD/WN HEENT: normocephalic Respiratory/Chest: chest wall non-tender, lungs clear Cardiovascular: normal peripheral pulses, normal rate Abdomen: normal bowel sounds, soft, non tender Genitourinary: normal external genitalia Extremities: no cyanosis Skin: no rash 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 Complete Laboratory Tests 05/15/18 17:43: Arterial Blood pH 7.370, Arterial Blood Partial Pressure CO2 54.1H, Arterial Blood Partial Pressure O2 70.5L, Arterial Blood HCO3 30.7H, Arterial Blood Oxygen Saturation 93.9, Arterial Blood Base Excess 4.6, Patrice Test Positive 05/16/18 06:02: White Blood Count 13.5H, Red Blood Count 5.07, Hemoglobin 9.2L, Hematocrit 32.5L , Mean Corpuscular Volume 64L, Mean Corpuscular Hemoglobin 18.1L, Mean Corpuscular Hemoglobin Concent 28.3L, Red Cell Distribution Width 19.8H, Platelet Count 185, Mean Platelet Volume 6.2L, Neutrophils (%) (Auto) 77.5H, Lymphocytes (%) (Auto) 9.7L, Monocytes (%) (Auto) 12.1H, Eosinophils (%) (Auto) 0.2, Basophils (%) (Auto) 0.4, Sodium Level 136, Potassium Level 4.2, Chloride Level 100, Carbon Dioxide Level 36H, Anion Gap 1L, Blood Urea Nitrogen 20H, Creatinine 1.2, Estimat Glomerular Filtration Rate , Glucose Level 118H, Calcium Level 9.0 Current Medications Medications (Trade) Dose Ordered Sig/Eda Route PRN Reason Start Time Stop Time Status Last Admin Dose Admin Albuterol/ Ipratropium (Albuterol/ Ipratropium) 3 ml Q4H PRN HHN dyspnea 05/12/18 04:15 05/17/18 04:14 05/15/18 09:31 Amlodipine Besylate (Norvasc) 10 mg DAILY ORAL 05/13/18 09:00 06/12/18 08:59 05/16/18 09:05 Atorvastatin Calcium (Lipitor) 20 mg BEDTIME ORAL 05/12/18 21:00 06/11/18 20:59 05/15/18 21:18 Chlorpromazine (Thorazine) 10 mg Q6H PRN ORAL hiccup 05/15/18 12:15 06/14/18 12:14 Clonidine HCl (Catapres Tab) 0.1 mg EVERY 6 HOURS PRN ORAL For High Blood Pressure 05/12/18 15:15 06/11/18 15:14 05/13/18 00:47 Dextrose (Dextrose 50%) 25 ml PRN IV Hypoglycemia 05/12/18 11:15 06/11/18 11:14 Dextrose (Dextrose 50%) 50 ml PRN IV hypoglycemia 05/12/18 11:15 06/11/18 11:14 Docusate Sodium (Colace) 100 mg TWICE A DAY ORAL 05/16/18 09:30 06/15/18 09:29 Ferrous Sulfate (Feosol) 325 mg TWICE A DAY ORAL 05/12/18 18:00 06/11/18 17:59 05/16/18 09:06 Heparin Sodium (Porcine) (Heparin 5000 units/ml) 5,000 units EVERY 12 HOURS SUBQ 05/12/18 09:00 06/11/18 08:59 05/16/18 09:08 Hydrocortisone (Anusol HC) 1 supp TWICE A DAY RECTAL 05/15/18 18:00 06/14/18 17:59 Insulin Aspart (NovoLOG) BEFORE MEALS AND HS SUBQ 05/12/18 12:30 06/11/18 12:29 05/16/18 06:12 Iron Sucrose 100 mg/Sodium Chloride 115 ml @ 230 mls/hr BEDTIME IV 05/15/18 21:00 05/19/18 21:29 05/15/18 21:18 Isosorbide Mononitrate (Imdur) 30 mg DAILY ORAL 05/14/18 09:00 06/13/18 08:59 05/16/18 09:05 Lorazepam (Ativan 2mg/ml 1ml) 0.5 mg Q4H PRN IV For Anxiety 05/12/18 04:15 05/19/18 04:14 Losartan Potassium (Cozaar) 100 mg DAILY ORAL 05/13/18 09:00 06/12/18 08:59 05/16/18 09:05 Morphine Sulfate (Morphine Sulfate) 2 mg Q4H PRN IVP severe pain 7-10 05/12/18 04:15 05/19/18 04:14 Nitroglycerin (Ntg) 0.4 mg Q5M X 3 DOSES PRN SL Prn Chest Pain 05/12/18 04:15 06/11/18 04:14 Ondansetron HCl (Zofran) 4 mg Q6H PRN IVP Nausea & Vomiting 05/12/18 04:15 06/11/18 04:14 Pantoprazole (Protonix) 40 mg DAILY ORAL 05/13/18 09:00 06/12/18 08:59 05/16/18 09:05 Prednisone (predniSONE) 20 mg DAILY ORAL 05/15/18 09:00 06/14/18 08:59 05/16/18 09:06 Promethazine HCl/ Codeine (Phenergan with Codeine) 5 ml Q6H PRN ORAL cough 05/12/18 04:15 06/11/18 04:14 Temazepam (Restoril) 15 mg HSPRN PRN ORAL Insomnia 05/12/18 04:15 05/19/18 04:14 Theophylline (Luis Fernando-Dur) 100 mg EVERY 12 HOURS ORAL 05/12/18 09:00 06/11/18 08:59 05/16/18 09:06 Balta Luna MD May 16, 2018 10:05
--- NOTE | 2018-05-16 11:52 | General Surgery Progress Note ---
General Surgery-Progress Note Subjective Additional Comments no acute events. leukocytosis improved. H/H stable. no active bleeding Objective Last 24 Hour Vital Signs Date Time Temp Pulse Resp B/P (MAP) Pulse Ox O2 Delivery O2 Flow Rate FiO2 05/16/18 09:48 98 Nasal Cannula 2.0 28 05/16/18 09:48 97 22 Nasal Cannula 2.0 28 05/16/18 09:48 Nasal Cannula 2.0 28 05/16/18 09:05 150/96 05/16/18 09:05 150/96 05/16/18 09:05 108 150/96 05/16/18 09:00 Nasal Cannula 2.0 05/16/18 08:00 108 05/16/18 08:00 97.2 99 20 150/96 (114) 97 97.2 05/16/18 04:00 97.9 89 18 155/94 (114) 100 97.9 05/16/18 04:00 91 05/16/18 00:00 98.0 98 18 156/84 (108) 96 98.0 05/16/18 00:00 106 05/15/18 21:00 Nasal Cannula 2.0 05/15/18 20:00 101 05/15/18 20:00 98.4 88 20 141/80 (100) 97 98.4 05/15/18 19:05 Nasal Cannula 2.0 28 05/15/18 19:05 99 22 Nasal Cannula 2.0 28 05/15/18 19:05 98 Nasal Cannula 2.0 28 05/15/18 16:00 98.6 93 20 120/80 (93) 97 98.6 05/15/18 16:00 95 05/15/18 12:00 98.0 102 20 153/69 (97) 96 98.0 05/15/18 12:00 103 I&O Intake and Output 05/15/18 05/16/18 18:59 06:59 Intake Total 1080 ml 800 ml Output Total 400 ml 1900 ml Balance 680 ml -1100 ml Intake Oral 1080 ml 800 ml Output Urine Total 400 ml 1900 ml Drains: none Cardiovascular: RSR Respiratory: clear Abdomen: soft, flat, non-tender, present bowel sounds Extremities: no edema, no tenderness, no cyanosis Laboratory Tests Test 05/15/18 17:43 05/16/18 06:02 Arterial Blood pH 7.370 (7.350-7.450) Arterial Blood Partial Pressure CO2 54.1 mmHg (35.0-45.0) H Arterial Blood Partial Pressure O2 70.5 mmHg (75.0-100.0) L Arterial Blood HCO3 30.7 mmol/L (22.0-26.0) H Arterial Blood Oxygen Saturation 93.9 % (92.0-98.0) Arterial Blood Base Excess 4.6 Patrice Test Positive White Blood Count 13.5 K/UL (4.8-10.8) H Red Blood Count 5.07 M/UL (4.70-6.10) Hemoglobin 9.2 G/DL (14.2-18.0) L Hematocrit 32.5 % (42.0-52.0) L Mean Corpuscular Volume 64 FL (80-99) L Mean Corpuscular Hemoglobin 18.1 PG (27.0-31.0) L Mean Corpuscular Hemoglobin Concent 28.3 G/DL (32.0-36.0) L Red Cell Distribution Width 19.8 % (11.6-14.8) H Platelet Count 185 K/UL (150-450) Mean Platelet Volume 6.2 FL (6.5-10.1) L Neutrophils (%) (Auto) 77.5 % (45.0-75.0) H Lymphocytes (%) (Auto) 9.7 % (20.0-45.0) L Monocytes (%) (Auto) 12.1 % (1.0-10.0) H Eosinophils (%) (Auto) 0.2 % (0.0-3.0) Basophils (%) (Auto) 0.4 % (0.0-2.0) Sodium Level 136 MMOL/L (136-145) Potassium Level 4.2 MMOL/L (3.5-5.1) Chloride Level 100 MMOL/L (98-107) Carbon Dioxide Level 36 MMOL/L (21-32) H Anion Gap 1 mmol/L (5-15) L Blood Urea Nitrogen 20 mg/dL (7-18) H Creatinine 1.2 MG/DL (0.55-1.30) Estimat Glomerular Filtration Rate mL/min (>60) Glucose Level 118 MG/DL (74-106) H Calcium Level 9.0 MG/DL (8.5-10.1) Plan Problems: (1) Anemia (2) AVM (arteriovenous malformation) Assessment & Plan: small bowel AV malformations discussed with GI about prior endoscopy and AV malformations likely has multiple and not one discrete AV malformation. in process of reviewing inpatient and outpatient records unlikely will be operative candidate given multiple lesions will discuss with consultants for care plan thank you for this consultation. Ant Levine May 16, 2018 11:52
[2018-05-16 12:00] VITALS: BP 141/91
--- NOTE | 2018-05-16 12:12 | General Progress Note ---
Assessment/Plan Assessment/Plan Assessment - constipation - Hepatitis C - PCR (+), not treated - Anemia/chronic GI blood loss due to small bowel AVM - COPD - CHF - DM - HTN Recommendations - laxative - check Fe panel - replace IV Fe PRN - Outpt HCV Rx - follow labs Thank you Kirstie Jackson MD Subjective Allergies: Coded Allergies: No Known Allergies (Unverified , 06/20/14) Objective Last 24 Hour Vital Signs Date Time Temp Pulse Resp B/P (MAP) Pulse Ox O2 Delivery O2 Flow Rate FiO2 05/16/18 09:48 98 Nasal Cannula 2.0 28 05/16/18 09:48 97 22 Nasal Cannula 2.0 28 05/16/18 09:48 Nasal Cannula 2.0 28 05/16/18 09:05 150/96 05/16/18 09:05 150/96 05/16/18 09:05 108 150/96 05/16/18 09:00 Nasal Cannula 2.0 05/16/18 08:00 108 05/16/18 08:00 97.2 99 20 150/96 (114) 97 97.2 05/16/18 04:00 97.9 89 18 155/94 (114) 100 97.9 05/16/18 04:00 91 05/16/18 00:00 98.0 98 18 156/84 (108) 96 98.0 05/16/18 00:00 106 05/15/18 21:00 Nasal Cannula 2.0 05/15/18 20:00 101 05/15/18 20:00 98.4 88 20 141/80 (100) 97 98.4 05/15/18 19:05 Nasal Cannula 2.0 28 05/15/18 19:05 99 22 Nasal Cannula 2.0 28 05/15/18 19:05 98 Nasal Cannula 2.0 28 05/15/18 16:00 98.6 93 20 120/80 (93) 97 98.6 05/15/18 16:00 95 Intake and Output 05/15/18 05/16/18 19:00 07:00 Intake Total 1080 ml 800 ml Output Total 400 ml 1900 ml Balance 680 ml -1100 ml Intake Oral 1080 ml 800 ml Output Urine Total 400 ml 1900 ml Laboratory Tests 05/15/18 17:43: Arterial Blood pH 7.370, Arterial Blood Partial Pressure CO2 54.1H, Arterial Blood Partial Pressure O2 70.5L, Arterial Blood HCO3 30.7H, Arterial Blood Oxygen Saturation 93.9, Arterial Blood Base Excess 4.6, Patrice Test Positive 05/16/18 06:02: White Blood Count 13.5H, Red Blood Count 5.07, Hemoglobin 9.2L, Hematocrit 32.5L , Mean Corpuscular Volume 64L, Mean Corpuscular Hemoglobin 18.1L, Mean Corpuscular Hemoglobin Concent 28.3L, Red Cell Distribution Width 19.8H, Platelet Count 185, Mean Platelet Volume 6.2L, Neutrophils (%) (Auto) 77.5H, Lymphocytes (%) (Auto) 9.7L, Monocytes (%) (Auto) 12.1H, Eosinophils (%) (Auto) 0.2, Basophils (%) (Auto) 0.4, Sodium Level 136, Potassium Level 4.2, Chloride Level 100, Carbon Dioxide Level 36H, Anion Gap 1L, Blood Urea Nitrogen 20H, Creatinine 1.2, Estimat Glomerular Filtration Rate , Glucose Level 118H, Calcium Level 9.0 Height (Feet): 5 Height (Inches): 8.00 Weight (Pounds): 222 Mara Jackson MD May 16, 2018 12:12
[2018-05-16] MEDS ORDERED: Sorbitol Solution UD 30ml ORAL SCH (12:15)
[2018-05-16 16:00] VITALS: BP 151/98
--- NOTE | 2018-05-16 16:53 | Cardiology Progress Note ---
Assessment/Plan Assessment/Plan 1. Dyspnea most likely acute exacerbation of COPD, 2D echo reveals moderately increased left atrial pressure consistent with mild HFpEF. 2. Hypertensive heart disease with labile blood pressure. 3. 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 4. Non-ischemic stress test in 2013. 5. ST likely due to hypoxemia, breathing treatment (B-agonists). Will replace amlodipine with [id number] Diltiazem for AV laurita inhibitory effects. Subjective Subjective Sinus tach at 111. Objective Last 24 Hour Vital Signs Date Time Temp Pulse Resp B/P (MAP) Pulse Ox O2 Delivery O2 Flow Rate FiO2 05/16/18 12:00 109 05/16/18 12:00 97.6 105 20 141/91 (108) 98 97.6 05/16/18 09:48 98 Nasal Cannula 2.0 28 05/16/18 09:48 97 22 Nasal Cannula 2.0 28 05/16/18 09:48 Nasal Cannula 2.0 28 05/16/18 09:05 150/96 05/16/18 09:05 150/96 05/16/18 09:05 108 150/96 05/16/18 09:00 Nasal Cannula 2.0 05/16/18 08:00 108 05/16/18 08:00 97.2 99 20 150/96 (114) 97 97.2 05/16/18 04:00 97.9 89 18 155/94 (114) 100 97.9 05/16/18 04:00 91 05/16/18 00:00 98.0 98 18 156/84 (108) 96 98.0 05/16/18 00:00 106 05/15/18 21:00 Nasal Cannula 2.0 05/15/18 20:00 101 05/15/18 20:00 98.4 88 20 141/80 (100) 97 98.4 05/15/18 19:05 Nasal Cannula 2.0 28 05/15/18 19:05 99 22 Nasal Cannula 2.0 28 05/15/18 19:05 98 Nasal Cannula 2.0 28 Intake and Output 05/15/18 05/16/18 19:00 07:00 Intake Total 1080 ml 800 ml Output Total 400 ml 1900 ml Balance 680 ml -1100 ml Intake Oral 1080 ml 800 ml Output Urine Total 400 ml 1900 ml 2D Echo: EF 60%, RVSP 42 mmHg, Grade II LVDD (pseudo-normal physio) Laboratory Tests Test 05/15/18 17:43 05/16/18 06:02 Arterial Blood pH 7.370 (7.350-7.450) Arterial Blood Partial Pressure CO2 54.1 mmHg (35.0-45.0) H Arterial Blood Partial Pressure O2 70.5 mmHg (75.0-100.0) L Arterial Blood HCO3 30.7 mmol/L (22.0-26.0) H Arterial Blood Oxygen Saturation 93.9 % (92.0-98.0) Arterial Blood Base Excess 4.6 Patrice Test Positive White Blood Count 13.5 K/UL (4.8-10.8) H Red Blood Count 5.07 M/UL (4.70-6.10) Hemoglobin 9.2 G/DL (14.2-18.0) L Hematocrit 32.5 % (42.0-52.0) L Mean Corpuscular Volume 64 FL (80-99) L Mean Corpuscular Hemoglobin 18.1 PG (27.0-31.0) L Mean Corpuscular Hemoglobin Concent 28.3 G/DL (32.0-36.0) L Red Cell Distribution Width 19.8 % (11.6-14.8) H Platelet Count 185 K/UL (150-450) Mean Platelet Volume 6.2 FL (6.5-10.1) L Neutrophils (%) (Auto) 77.5 % (45.0-75.0) H Lymphocytes (%) (Auto) 9.7 % (20.0-45.0) L Monocytes (%) (Auto) 12.1 % (1.0-10.0) H Eosinophils (%) (Auto) 0.2 % (0.0-3.0) Basophils (%) (Auto) 0.4 % (0.0-2.0) Sodium Level 136 MMOL/L (136-145) Potassium Level 4.2 MMOL/L (3.5-5.1) Chloride Level 100 MMOL/L (98-107) Carbon Dioxide Level 36 MMOL/L (21-32) H Anion Gap 1 mmol/L (5-15) L Blood Urea Nitrogen 20 mg/dL (7-18) H Creatinine 1.2 MG/DL (0.55-1.30) Estimat Glomerular Filtration Rate mL/min (>60) Glucose Level 118 MG/DL (74-106) H Calcium Level 9.0 MG/DL (8.5-10.1) Microbiology Date/Time Source Procedure Growth Status 05/14/18 08:20 Sputum Expectorated Gram Stain - Final Complete 05/14/18 08:20 Sputum Expectorated Sputum Culture - Final NORMAL UPPER RESPIRATORY CHRISTOPHER AT 48 ... Complete Objective HEENT: Atraumatic, normocephalic, PERRLA, EOMI. Neck: No JVD, no carotid bruit. LUNGS: Significant decrease of breath sounds HEART: Regular rhythm and rate. Tachycardic. Distant S1, S2. ABDOMEN: Soft, non-tender, non-distended, + BS. EXTREMITIES: No edema, clubbing or cyanosis. Jorgito Pickering MD May 16, 2018 16:53
[2018-05-16] MEDS: dilTIAZem HCl 90mg tab ORAL SCH ×2 (17:15→21:03)
[2018-05-16 20:00] VITALS: BP 133/84
[2018-05-16] MEDS: Iron Sucrose 100 MG in NS 110 ML IV SCH (21:02)
[2018-05-16] MEDS: Atorvastatin 20mg tab ORAL SCH (21:04)
[2018-05-17] VITALS: BP 153/93
[2018-05-17 04:00] VITALS: BP 131/64
[2018-05-17] MEDS: dilTIAZem HCl 90mg tab ORAL SCH (06:17)
[2018-05-17] MEDS: NovoLOG Insulin Flexpen SUBQ SCH ×2 (06:22→12:33)
[2018-05-17 07:51] LABS: BASOPHILS % (AUTO) 0.5 % (0.0-2.0); EOSINOPHILS % (AUTO) 1.3 % (0.0-3.0); HEMATOCRIT 32.6 % (42.0-52.0); LYMPHOCYTES % (AUTO) 13.8 % (20.0-45.0); MEAN CORPUSCULAR VOLUME 65 FL (80-99); NEUTROPHILS % (AUTO) 70.4 % (45.0-75.0); PLATELET COUNT 192 K/UL (150-450); RED CELL DISTRIBUTION WIDTH 19.7 % (11.6-14.8); WHITE BLOOD COUNT 10.3 K/UL (4.8-10.8)
[2018-05-17 08:00] VITALS: BP 142/73
[2018-05-17 08:06] LABS: ANION GAP 1 mmol/L (5-15); BLOOD UREA NITROGEN 16 mg/dL (7-18); CARBON DIOXIDE 36 MMOL/L (21-32); CHLORIDE 101 MMOL/L (98-107); POTASSIUM 3.7 MMOL/L (3.5-5.1); SODIUM 138 MMOL/L (136-145)
[2018-05-17] MEDS: Docusate 100mg cap ORAL SCH (08:45)
[2018-05-17 08:46] VITALS: BP 142/73
[2018-05-17] MEDS: Imdur 30mg tab ORAL SCH (08:46)
[2018-05-17] MEDS: Losartan 50mg tab ORAL SCH (08:46)
[2018-05-17] MEDS: Hydrocortisone SUPP RECTAL SCH (08:47)
[2018-05-17] MEDS: Heparin 5000 units/ml inj SUBQ SCH ×2 (08:48→08:59)
--- NOTE | 2018-05-17 09:04 | General Progress Note ---
Assessment/Plan Problem List: (1) CHF exacerbation ICD Codes: I50.9 - Heart failure, unspecified SNOMED: 80491335 Qualifiers: Qualified Codes: I50.9 - Heart failure, unspecified (2) Diabetes ICD Codes: E11.9 - Type 2 diabetes mellitus without complications SNOMED: 89307932 (3) Hypertension ICD Codes: I10 - Essential (primary) hypertension SNOMED: 72457793 (4) COPD with acute exacerbation ICD Codes: J44.1 - Chronic obstructive pulmonary disease with (acute) exacerbation SNOMED: 484016090 (5) UTI (urinary tract infection) ICD Codes: N39.0 - Urinary tract infection, site not specified SNOMED: 03309654 Qualifiers: Qualified Codes: N30.00 - Acute cystitis without hematuria Status: stable, progressing Assessment/Plan o2 pulm tx abx diurese ot pt diet cbc bmp am gi sx eval dc plan Subjective Constitutional: Reports: weakness Allergies: Coded Allergies: No Known Allergies (Unverified , 06/20/14) All Systems: reviewed and negative except above Subjective o2nc calm sitting on bed Objective Last 24 Hour Vital Signs Date Time Temp Pulse Resp B/P (MAP) Pulse Ox O2 Delivery O2 Flow Rate FiO2 05/17/18 08:46 142/73 05/17/18 08:46 142/73 05/17/18 08:00 97.4 66 20 142/73 (96) 97 97.4 05/17/18 06:17 63 131/64 05/17/18 04:00 98.0 70 18 131/64 (86) 98 98.0 05/17/18 04:00 63 05/17/18 00:00 97.6 82 16 153/93 (113) 94 97.6 05/17/18 00:00 69 05/16/18 23:58 Nasal Cannula 2.0 05/16/18 21:03 97 151/98 05/16/18 21:00 96 20 Nasal Cannula 2.0 28 05/16/18 21:00 97 Nasal Cannula 2.0 28 05/16/18 21:00 Nasal Cannula 2.0 28 05/16/18 20:00 116 05/16/18 20:00 98.3 96 20 133/84 (100) 99 98.3 05/16/18 17:15 97 151/98 05/16/18 16:00 95 05/16/18 16:00 97.7 97 20 151/98 (115) 96 97.7 05/16/18 12:00 109 05/16/18 12:00 97.6 105 20 141/91 (108) 98 97.6 05/16/18 09:48 98 Nasal Cannula 2.0 28 05/16/18 09:48 97 22 Nasal Cannula 2.0 28 05/16/18 09:48 Nasal Cannula 2.0 28 05/16/18 09:05 150/96 05/16/18 09:05 150/96 05/16/18 09:05 108 150/96 Intake and Output 05/16/18 05/17/18 19:00 07:00 Intake Total 600 ml Output Total 900 ml 525 ml Balance -300 ml -525 ml Intake Oral 600 ml Output Urine Total 900 ml 525 ml # Bowel Movements 1 Laboratory Tests 05/17/18 05:30: White Blood Count 10.3, Red Blood Count 5.00, Hemoglobin 9.0L, Hematocrit 32.6L , Mean Corpuscular Volume 65L, Mean Corpuscular Hemoglobin 17.9L, Mean Corpuscular Hemoglobin Concent 27.5L, Red Cell Distribution Width 19.7H, Platelet Count 192, Mean Platelet Volume 7.6, Neutrophils (%) (Auto) 70.4, Lymphocytes (%) (Auto) 13.8L, Monocytes (%) (Auto) 14.0H, Eosinophils (%) (Auto ) 1.3, Basophils (%) (Auto) 0.5, Sodium Level 138, Potassium Level 3.7, Chloride Level 101, Carbon Dioxide Level 36H, Anion Gap 1L, Blood Urea Nitrogen 16, Creatinine 1.0, Estimat Glomerular Filtration Rate , Glucose Level 161H, Calcium Level 10.0 Height (Feet): 5 Height (Inches): 8.00 Weight (Pounds): 221 General Appearance: lethargic EENT: normal ENT inspection Neck: normal alignment Cardiovascular: normal peripheral pulses, normal rate, regular rhythm Respiratory/Chest: chest wall non-tender, lungs clear, normal breath sounds Abdomen: normal bowel sounds, non tender, soft Extremities: normal inspection Edema: no edema noted Arm (L), no edema noted Arm (R), no edema noted Leg (L), no edema noted Leg (R), no edema noted Pedal (L), no edema noted Pedal (R), no edema noted Generalized Neurologic: responsive, motor weakness Skin: normal pigmentation, warm/dry Bry Santiago DO May 17, 2018 09:04
--- NOTE | 2018-05-17 13:13 | Pulmonology Progress Note ---
Assessment/Plan Problems: (1) COPD with acute exacerbation (2) Pulmonary nodule (3) AVM (arteriovenous malformation) (4) Iron deficiency (5) Diabetes (6) Hepatitis C (7) Hypertension Assessment/Plan no new complains improving prednisone 10 mg now cardiac evaluation respiratory treatment d/w Dr. FARR surgeon, small intestine can not be removed. pt might need resection of AVM malformation in small intestine Subjective ROS Limited/Unobtainable: No Constitutional: Reports: no symptoms HEENT: Repors: no symptoms Respiratory: Reports: no symptoms Allergies: Coded Allergies: No Known Allergies (Unverified , 06/20/14) Objective Last 24 Hour Vital Signs Date Time Temp Pulse Resp B/P (MAP) Pulse Ox O2 Delivery O2 Flow Rate FiO2 05/17/18 09:00 Nasal Cannula 2.0 05/17/18 08:46 142/73 05/17/18 08:46 142/73 05/17/18 08:00 97.4 66 20 142/73 (96) 97 97.4 05/17/18 08:00 80 05/17/18 06:17 63 131/64 05/17/18 04:00 98.0 70 18 131/64 (86) 98 98.0 05/17/18 04:00 63 05/17/18 00:00 97.6 82 16 153/93 (113) 94 97.6 05/17/18 00:00 69 05/16/18 23:58 Nasal Cannula 2.0 05/16/18 21:03 97 151/98 05/16/18 21:00 96 20 Nasal Cannula 2.0 28 05/16/18 21:00 97 Nasal Cannula 2.0 28 05/16/18 21:00 Nasal Cannula 2.0 28 05/16/18 20:00 116 05/16/18 20:00 98.3 96 20 133/84 (100) 99 98.3 05/16/18 17:15 97 151/98 05/16/18 16:00 95 05/16/18 16:00 97.7 97 20 151/98 (115) 96 97.7 Intake and Output 05/16/18 05/17/18 19:00 07:00 Intake Total 600 ml Output Total 900 ml 525 ml Balance -300 ml -525 ml Intake Oral 600 ml Output Urine Total 900 ml 525 ml # Bowel Movements 1 Objective General Appearance: WD/WN HEENT: normocephalic Respiratory/Chest: chest wall non-tender, lungs clear Cardiovascular: normal peripheral pulses, normal rate Abdomen: normal bowel sounds, soft, non tender Genitourinary: normal external genitalia Extremities: no cyanosis Skin: no rash Neurologic/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: 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 Lymphatic: no neck adenopathy Laboratory Tests 05/17/18 05:30: White Blood Count 10.3, Red Blood Count 5.00, Hemoglobin 9.0L, Hematocrit 32.6L , Mean Corpuscular Volume 65L, Mean Corpuscular Hemoglobin 17.9L, Mean Corpuscular Hemoglobin Concent 27.5L, Red Cell Distribution Width 19.7H, Platelet Count 192, Mean Platelet Volume 7.6, Neutrophils (%) (Auto) 70.4, Lymphocytes (%) (Auto) 13.8L, Monocytes (%) (Auto) 14.0H, Eosinophils (%) (Auto ) 1.3, Basophils (%) (Auto) 0.5, Sodium Level 138, Potassium Level 3.7, Chloride Level 101, Carbon Dioxide Level 36H, Anion Gap 1L, Blood Urea Nitrogen 16, Creatinine 1.0, Estimat Glomerular Filtration Rate , Glucose Level 161H, Calcium Level 10.0 Current Medications Medications (Trade) Dose Ordered Sig/Eda Route PRN Reason Start Time Stop Time Status Last Admin Dose Admin Atorvastatin Calcium (Lipitor) 20 mg BEDTIME ORAL 05/12/18 21:00 06/11/18 20:59 05/16/18 21:04 Chlorpromazine (Thorazine) 10 mg Q6H PRN ORAL hiccup 05/15/18 12:15 06/14/18 12:14 Clonidine HCl (Catapres Tab) 0.1 mg EVERY 6 HOURS PRN ORAL For High Blood Pressure 05/12/18 15:15 06/11/18 15:14 05/13/18 00:47 Dextrose (Dextrose 50%) 25 ml PRN IV Hypoglycemia 05/12/18 11:15 06/11/18 11:14 Dextrose (Dextrose 50%) 50 ml PRN IV hypoglycemia 05/12/18 11:15 06/11/18 11:14 Diltiazem HCl (Cardizem) 90 mg EVERY 8 HOURS ORAL 05/16/18 17:00 06/15/18 16:59 05/17/18 06:17 Docusate Sodium (Colace) 100 mg TWICE A DAY ORAL 05/16/18 09:30 06/15/18 09:29 05/17/18 08:45 Ferrous Sulfate (Feosol) 325 mg TWICE A DAY ORAL 05/12/18 18:00 06/11/18 17:59 05/17/18 08:45 Heparin Sodium (Porcine) (Heparin 5000 units/ml) 5,000 units EVERY 12 HOURS SUBQ 05/12/18 09:00 06/11/18 08:59 05/16/18 21:04 Hydrocortisone (Anusol HC) 1 supp TWICE A DAY RECTAL 05/15/18 18:00 06/14/18 17:59 Insulin Aspart (NovoLOG) BEFORE MEALS AND HS SUBQ 05/12/18 12:30 06/11/18 12:29 05/17/18 12:33 Iron Sucrose 100 mg/Sodium Chloride 115 ml @ 230 mls/hr BEDTIME IV 05/15/18 21:00 05/19/18 21:29 05/16/18 21:02 Isosorbide Mononitrate (Imdur) 30 mg DAILY ORAL 05/14/18 09:00 06/13/18 08:59 05/17/18 08:46 Lorazepam (Ativan 2mg/ml 1ml) 0.5 mg Q4H PRN IV For Anxiety 05/12/18 04:15 05/19/18 04:14 Losartan Potassium (Cozaar) 100 mg DAILY ORAL 05/13/18 09:00 06/12/18 08:59 05/17/18 08:46 Morphine Sulfate (Morphine Sulfate) 2 mg Q4H PRN IVP severe pain 7-05/12/18 04:15 05/19/18 04:14 Nitroglycerin (Ntg) 0.4 mg Q5M X 3 DOSES PRN SL Prn Chest Pain 05/12/18 04:15 06/11/18 04:14 Ondansetron HCl (Zofran) 4 mg Q6H PRN IVP Nausea & Vomiting 05/12/18 04:15 06/11/18 04:14 Pantoprazole (Protonix) 40 mg DAILY ORAL 05/13/18 09:00 06/12/18 08:59 05/17/18 08:46 Prednisone (predniSONE) 10 mg DAILY ORAL 05/17/18 09:00 06/16/18 08:59 05/17/18 08:45 Promethazine HCl/ Codeine (Phenergan with Codeine) 5 ml Q6H PRN ORAL cough 05/12/18 04:15 06/11/18 04:14 Temazepam (Restoril) 15 mg HSPRN PRN ORAL Insomnia 05/12/18 04:15 05/19/18 04:14 Balta Luna MD May 17, 2018 13:13
--- NOTE | 2018-05-17 14:54 | General Progress Note ---
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 Watts in 1-2 weeks re ob (+) stools Subjective Allergies: Coded Allergies: No Known Allergies (Unverified , 06/20/14) Subjective (+) BM d/w patient re OB (+) stools advised to f/u with Dr. Watts after d/c Objective Last 24 Hour Vital Signs Date Time Temp Pulse Resp B/P (MAP) Pulse Ox O2 Delivery O2 Flow Rate FiO2 05/17/18 09:00 Nasal Cannula 2.0 05/17/18 08:46 142/73 05/17/18 08:46 142/73 05/17/18 08:00 97.4 66 20 142/73 (96) 97 97.4 05/17/18 08:00 80 05/17/18 06:17 63 131/64 05/17/18 04:00 98.0 70 18 131/64 (86) 98 98.0 05/17/18 04:00 63 05/17/18 00:00 97.6 82 16 153/93 (113) 94 97.6 05/17/18 00:00 69 05/16/18 23:58 Nasal Cannula 2.0 05/16/18 21:03 97 151/98 05/16/18 21:00 96 20 Nasal Cannula 2.0 28 05/16/18 21:00 97 Nasal Cannula 2.0 28 05/16/18 21:00 Nasal Cannula 2.0 28 05/16/18 20:00 116 05/16/18 20:00 98.3 96 20 133/84 (100) 99 98.3 05/16/18 17:15 97 151/98 05/16/18 16:00 95 05/16/18 16:00 97.7 97 20 151/98 (115) 96 97.7 Intake and Output 05/16/18 05/17/18 19:00 07:00 Intake Total 600 ml Output Total 900 ml 525 ml Balance -300 ml -525 ml Intake Oral 600 ml Output Urine Total 900 ml 525 ml # Bowel Movements 1 Laboratory Tests 05/17/18 05:30: White Blood Count 10.3, Red Blood Count 5.00, Hemoglobin 9.0L, Hematocrit 32.6L , Mean Corpuscular Volume 65L, Mean Corpuscular Hemoglobin 17.9L, Mean Corpuscular Hemoglobin Concent 27.5L, Red Cell Distribution Width 19.7H, Platelet Count 192, Mean Platelet Volume 7.6, Neutrophils (%) (Auto) 70.4, Lymphocytes (%) (Auto) 13.8L, Monocytes (%) (Auto) 14.0H, Eosinophils (%) (Auto ) 1.3, Basophils (%) (Auto) 0.5, Sodium Level 138, Potassium Level 3.7, Chloride Level 101, Carbon Dioxide Level 36H, Anion Gap 1L, Blood Urea Nitrogen 16, Creatinine 1.0, Estimat Glomerular Filtration Rate , Glucose Level 161H, Calcium Level 10.0 Height (Feet): 5 Height (Inches): 8.00 Weight (Pounds): 221 Objective WDWN NCAT supple Chest CTA RRR Soft ND NT no edema non Mara Lin MD May 17, 2018 14:54
--- NOTE | 2018-05-17 23:09 | Cardiology Progress Note ---
Assessment/Plan Assessment/Plan 1. Dyspnea most likely acute exacerbation of COPD, 2D echo reveals moderately increased left atrial pressure consistent with mild HFpEF. 2. Hypertensive heart disease with labile blood pressure. 3. 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 4. Non-ischemic stress test in 2013. 5. ST likely due to hypoxemia, resolved. Continue diltiazem. Subjective Subjective Sinus rhythm at 66. Objective Last 24 Hour Vital Signs Date Time Temp Pulse Resp B/P (MAP) Pulse Ox O2 Delivery O2 Flow Rate FiO2 05/17/18 09:00 Nasal Cannula 2.0 05/17/18 08:46 142/73 05/17/18 08:46 142/73 05/17/18 08:00 97.4 66 20 142/73 (96) 97 97.4 05/17/18 08:00 80 05/17/18 06:17 63 131/64 05/17/18 04:00 98.0 70 18 131/64 (86) 98 98.0 05/17/18 04:00 63 05/17/18 00:00 97.6 82 16 153/93 (113) 94 97.6 05/17/18 00:00 69 05/16/18 23:58 Nasal Cannula 2.0 Intake and Output 05/16/18 05/17/18 19:00 07:00 Intake Total 600 ml Output Total 900 ml 525 ml Balance -300 ml -525 ml Intake Oral 600 ml Output Urine Total 900 ml 525 ml # Bowel Movements 1 2D Echo: EF 60%, RVSP 42 mmHg, Grade II LVDD (pseudo-normal physio) Laboratory Tests Test 05/17/18 05:30 White Blood Count 10.3 K/UL (4.8-10.8) Red Blood Count 5.00 M/UL (4.70-6.10) Hemoglobin 9.0 G/DL (14.2-18.0) L Hematocrit 32.6 % (42.0-52.0) L Mean Corpuscular Volume 65 FL (80-99) L Mean Corpuscular Hemoglobin 17.9 PG (27.0-31.0) L Mean Corpuscular Hemoglobin Concent 27.5 G/DL (32.0-36.0) L Red Cell Distribution Width 19.7 % (11.6-14.8) H Platelet Count 192 K/UL (150-450) Mean Platelet Volume 7.6 FL (6.5-10.1) Neutrophils (%) (Auto) 70.4 % (45.0-75.0) Lymphocytes (%) (Auto) 13.8 % (20.0-45.0) L Monocytes (%) (Auto) 14.0 % (1.0-10.0) H Eosinophils (%) (Auto) 1.3 % (0.0-3.0) Basophils (%) (Auto) 0.5 % (0.0-2.0) Sodium Level 138 MMOL/L (136-145) Potassium Level 3.7 MMOL/L (3.5-5.1) Chloride Level 101 MMOL/L (98-107) Carbon Dioxide Level 36 MMOL/L (21-32) H Anion Gap 1 mmol/L (5-15) L Blood Urea Nitrogen 16 mg/dL (7-18) Creatinine 1.0 MG/DL (0.55-1.30) Estimat Glomerular Filtration Rate mL/min (>60) Glucose Level 161 MG/DL (74-106) H Calcium Level 10.0 MG/DL (8.5-10.1) Objective HEENT: Atraumatic, normocephalic, PERRLA, EOMI. Neck: No JVD, no carotid bruit. LUNGS: Significant decrease of breath sounds HEART: Regular rhythm and rate. Distant S1, S2. No murmurs, gallops or rubs. ABDOMEN: Soft, non-tender, non-distended, + BS. EXTREMITIES: No edema, clubbing or cyanosis. Jorgito Pickering MD May 17, 2018 23:09
--- NOTE | 2018-05-18 13:30 | Discharge Summary ---
Discharge Summary Discharge Summary _ DATE OF ADMISSION: 05/12/2018 DATE OF DISCHARGE: 05/17/2018 REASON FOR ADMISSION: 77 years old male with past medical history of diabetes mellitus, hypertension, COPD, anemia and GI bleeding secondary to AV malformation, presented with chief complaint of shortness of breath. Symptoms were ongoing for about a week. No increased cough. Symptoms worse with exertion and better with rest. No nausea ,no vomiting, no diarrhea. No fever , no chills Vital signs revealed tachycardia with heart rate 134, elevated blood pressure -176/118. Pulse oximetry was 91% on room air. Workup in emergency room revealed no leukocytosis, hemoglobin 8.4and hematocrit 30.6. Potassium 3.4. Creatinine 1.4. Pro BNP 3001 Troponin negative Urinalysis with evidence of pyuria, but few bacteria only. Chest x-ray revealed nonspecific increased lung markings, most pronounced at the bases. Findings may be related to congestion or possible small airway disease / bronchitis. No definite focal consolidation, pleural effusion or pneumothorax noted. Previously described right upper lobe lung nodule noted on CT, was not apparent radiographically. Patient admitted with diagnoses of COPD with acute exacerbation, CHF exacerbation ,anemia ,hypertension ,possible UTI. CONSULTANTS: patient registration representative Dr. Pickering pulmonary Dr. Luna ID specialist Dr. Tarango GI specialist [facility]: Patient admitted to telemetry floor. Supplemental oxygen titrated to keep pulse oximetry above 92%. Pulmonary toilet with bronchodilator provided. Sputum culture was negative. Patient was placed on empiric antibiotics. Patient started on IV steroids with gradual tapering. Antitussive provided as needed. DVT prophylaxis provided. Aspiration precaution maintained. Echocardiogram revealed normal left ventricular chamber size, systolic function and wall motion. Left ventricular ejection fraction estimated to be 60-65%. No evidence of left ventricular hypertrophy. No evidence of pericardial or pleural effusion. Mitral inflow velocity indicated possible pseudonormalization pattern implying if real, significant left ventricular diastolic dysfunction. Right ventricular systolic pressure of 42 , consistent with mild pulmonary hypertension. Internist closely followed. According to patient registration representative, dyspnea was most likely due to COPD exacerbation and mild congestive heart failure. Patient had nonischemic stress test in 2013. Antihypertensive regimen titrated to keep blood pressure under control. Blood pressure was managed with calcium channel nickie/Cardizem and ARB/ Losartan . Blood pressure normalized with current regimen. Initial sinus tachycardia was likely due to hypoxemia and resolved. 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 Cardizem was continued. Pro BNP from initial 3001 down to 1050. Follow up CXR revealed no acute process. DVT prophylaxis provided. Blood sugar was managed with sliding scale insulin. Infectious disease specialist closely followed. Urine culture revealed mixed gram-positive organisms. Sputum culture was negative. Patient was off antibiotics. No fevers. Patient remained asymptomatic. Patient noted to have leukocytosis, however leukocytosis was likely reactive due to steroids. Steroids tapered down and changed to oral prednisone. GI closely followed . Patient with evidence of microcytic anemia. Patient required transfusion of 1 unit of packed red blood cells for hemoglobin 7.7 and hematocrit 29.6 . Prior to discharge hemoglobin 9.0 and hematocrit 32.6. Patient received IV Venofer as ordered by GI specialist. Bowel regimen instituted. GI prophylaxis provided. Stool for occult blood was positive. Recommended to follow-up with GI specialist in one week for further outpatient management. . Outpatient treatment for hepatitis C was recommended. Surgery consult was requested regarding possible surgical management of small bowel AV malformation. As per discussion between surgeon and GI specialist and review of prior reports of endoscopy, AV malformations appeared to be multiple , no discrete AV malformation. According to surgeon, patient unlikely to be a surgical candidate, given multiply lesions. Renal parameters and electrolytes were closely monitored. Electrolytes were corrected as needed. Nephrotoxics were avoided. Prior to discharge Potassium 4.1. Creatinine down to 1.3. 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 DISCHARGE INSTRUCTIONS: Patient was discharged home with home health services. Follow up with primary care provider in one week. I have been assigned to dictate discharge summary for this account. I was not involved in the patient's management. Gloria Villalobos NP May 18, 2018 13:30
== END 2018-05-17 14:10 | disposition home health service (06) | DRG 140 ==
LOC: EDBD 22:51 → EMR 23:10 → 2E 05-12 01:58 → EDBEDREQ 05-12 02:01
PROC: 30233N1 Transfusion of Nonautologous Red Blood Cells into Peripheral Vein, Percutaneous Approach (ICD-10-PCS; principal; 2018-05-13)
DX: J44.1 Chronic obstructive pulmonary disease with (acute) exacerbation (principal); I50.33 Acute on chronic diastolic (congestive) heart failure; K92.2 Gastrointestinal hemorrhage, unspecified; E11.9 Type 2 diabetes mellitus without complications; D50.9 Iron deficiency anemia, unspecified; B19.20 Unspecified viral hepatitis C without hepatic coma; N39.0 Urinary tract infection, site not specified; J06.9 Acute upper respiratory infection, unspecified; Q27.33 Arteriovenous malformation of digestive system vessel; R91.1 Solitary pulmonary nodule; I11.0 Hypertensive heart disease with heart failure; Z79.4 Long term (current) use of insulin; Z86.73 Personal history of transient ischemic attack (TIA), and cerebral infarction without residual deficits; R09.02 Hypoxemia
CPT/HCPCS: 36415; 36600; 71045; 80048; 80053; 80307; 81003; 82270; 82550; 82553; 82803; 82962; 83880; 84484; 85007; 85025; 85610; 85730; 86850; 86900; 86901; 86920; 87070; 87086; 87205; 93005; 93306; 94640; 94664; 94760; 97803; 99285; J1815; J7620; J8499

== ENCOUNTER 2018-07-06 13:36 | Outpatient (CLI) | payer MEDICARE, MEDICAID ==
--- NOTE | 2018-07-06 15:39 | GI Progress Note ---
Assessment/Plan Problems: (1) Hypertension ICD Codes: I10 - Essential (primary) hypertension SNOMED: 94479663 (2) Lightheadedness ICD Codes: R42 - Dizziness and giddiness SNOMED: 450853237 (3) Hepatitis C ICD Codes: B19.20 - Unspecified viral hepatitis C without hepatic coma SNOMED: 74759845 (4) AVM (arteriovenous malformation) ICD Codes: Q27.30 - Arteriovenous malformation, site unspecified SNOMED: 328493551 (5) Anemia ICD Codes: D64.9 - Anemia, unspecified SNOMED: 950289025 (6) Iron deficiency ICD Codes: E61.1 - Iron deficiency SNOMED: 96900588 Status: other Status Narrative Discussed with Dr. Watts. Assessment/Plan s/p capsule endoscopy >> Multiple small intestine AVM, most probably the source for anemia. Pt sent to ED for irregular heart rate/tachycardia. needs Hep C genotype drawn, CBC will follow up as inpatient. The patient was seen and examined at bedside and all new and available data was reviewed in the patients chart. I agree with the above findings, impression and plan. (Patient seen earlier today. Signature stamp does not reflect patient encounter time.). - Darin Watts MD Subjective Subjective fatigue short of breath generalized weakness Objective T 99.0 BP 155/76 Irregular heart rate from 90-150. 98 RA General Appearance: WD/WN, no apparent distress, alert Cardiovascular: normal rate Respiratory/Chest: normal breath sounds, no respiratory distress Abdominal Exam: normal bowel sounds, non tender, soft Extremities: normal range of motion, non-tender Donita DanielhLupillo [employer] TRANS[employer]ER Jul 06, 2018 15:39
[2018-07-06] MEDS ORDERED: NOVOLIN 70100 UNIT/1 SUBQ ×2 (18:04)
[2018-07-06] MEDS ORDERED: RESTASIS1 EACH BOTH EYES (18:04)
[2018-07-06] MEDS ORDERED: VENTOLIN HFA18 GM INH (18:10)
== END 2018-07-06 14:06 | disposition home or self-care (01) ==
LOC: PAN 13:36
DX: R00.0 Tachycardia, unspecified (principal); I10 Essential (primary) hypertension; R42 Dizziness and giddiness; B19.20 Unspecified viral hepatitis C without hepatic coma; Q27.30 Arteriovenous malformation, site unspecified; D64.9 Anemia, unspecified; E61.1 Iron deficiency; N28.1 Cyst of kidney, acquired
CPT/HCPCS: G0463